=== PATIENT | female | born 1965 | race Caucasian/White ===

== ENCOUNTER 2016-08-05 13:33 | Emergency (ER) | payer BC ==
[~2016-08-05] VITALS: Ht 152.4 cm; Wt 49.0 kg
[~2016-08-05 13:33] MED LIST: ALBU8.5HRX IH; AMOX500C2; AMOX500T2 PO; AZTH250C PO; BENZ100C18 PO; CALC-6 PO; CEFD300C3 PO; CHLO1CAP PO; CIPR500T4 PO; CIPR500T78 PO; CLIN300C11 PO; CODE-54; CYCL10TA9; CYCL10TA9 PO; DICY20TA33 PO; DOXE10CA PO; ESTR1TAB35 PO; ESTR1TAB37 PO; ESTRACE; ESTRGN METHTEST PO; ETHI1TAB16 PO; FERR-84 PO; FLUC200T45 PO; GABA-488 PO; GABA100C; GABA600T2 PO; HYDR-1231 PO; HYDR-34 PO; HYDR-3812; HYDR-3820 PO; HYDR1TAB85 PO; HYDR1TAB86 PO; METO10TA3 PO; METO5TAB2 PO; NAPR500T PO; NF-ESOM40C PO; NITR100C3 PO; NORE1TAB95 PO; NORG1TAB30 PO; NORG1TAB6 PO; OMEP-10 PO; ONDA-43 PO; ONDA4TAB8 PO; OXYC-202 PO; PANT20TA PO; PANT20TA2; PANT20TA2 PO; PANT40TA3 PO; PANT40VI3 PO; PHEN100T26 PO; PNT40TEC PO; PRD20T PO; PRM25T PO; PROM25SU10 PR; RNT150T PO; SCR1T1; SCR1T1 PO; SIME125T50 PO; SUCR1TAB23 PO; SUCR1TAB36 PO; SULF1TAB38 PO; ULCER MED; [UNRECOGNIZED DRUG - OTHER]
--- OUTSIDE RECORDS SUMMARY | 2016-08-05 13:39 | XMS REPORT | Continuity of Care Document ---
Author Author [facility] Organization [facility] Address Unknown Phone Unavailable Care Team Providers Care Furs Salesperson Name Role Phone Enmanuel Nicolas PCP [phone] Source Comments Some departments are not documenting in the electronic medical record. If you do not see the information that you expected, contact Release of Information in the Health Information Management department at [phone] for further assistance in locating additional records.[facility] Active Allergies and Adverse Reactions Not on File Current Medications Not on file Active Problems Not on file Social History Tobacco Use Types Packs/Day Years Used Date Never Assessed Plan of Care Health Maintenance Due Date Last Done Comments Physical (Comprehensive) 12/14/1974 Exam Pertussis Vaccine 12/14/1978 Tetanus Vaccine 12/14/1984 Cervical Cancer Screening 12/14/1988 Breast Cancer Screening 2007 Influenza Vaccine 03/07/2016 Results from Last 3 Months Not on file
[2016-08-05] MEDS ORDERED: Vitamin B 12 (14:16)
--- NOTE | 2016-08-05 14:21 | ED Respiratory ---
General Chief Complaint: Cough/Cold/Flu Symptoms Stated Complaint: FEVER COUGH/CHEST CONGESTION EARACHE ABD PAIN Nursing Triage Note: COUGH AND CONGESTION SINCE 1 WEEK AGO, REPORTS SHE HAS HAD A SURGERY MAR 29 AND MAY 24 AND THE INCISION HURTS FROM COUGHING. Source: patient, RN notes reviewed Exam Limitations: no limitations History of Present Illness Time seen by provider: 14:20 Initial Comments As directed. Timing/Duration: week (1) Severity: moderate Prior Episodes/Possible Cause: no prior episodes Modifying Factors: Worse With Coughing Associated Symptoms: cough earache facial pain fever/chills headache nasal congestion nasal drainage Allergies and Home Medications Allergies Coded Allergies: morphine (Verified Allergy, Severe, ITCHING & FLUSHING, PT HAS RECEIVED HYDROCODONE IN THE PAST, 06/23/16) Influenza Virus Vaccines (Unverified Allergy, Unknown, 06/23/16) metronidazole (Verified Allergy, Unknown, 04/28/16) Sulfa (Sulfonamide Antibiotics) (Verified Adverse Reaction, Unknown, ) Home Medications (Reported) Albuterol Sulfate 8.5 Gm Hfa.aer.ad #1 1-2 PUFF IH Q4H PRN PRN cough/wheeze/SOA Prescribed by: SONNY KRISHNAN on 08/05/16 1529 Calcium Carbonate/Vitamin D3 1 Each Tablet 1 TAB PO BID (Reported) Dicyclomine HCl 20 Mg Tablet #120 20 MG PO QID Prescribed by: SANGITA ZAMORA on 06/23/16 1057 Estrogen,Sylvie/Me-Testosterone 1 Each Tablet 2 TAB PO DAILY (Reported) LAST FILLED 03/20/16 #60 Ferrous Sulfate 325 Mg Tablet 325 MG PO BID (Reported) Gabapentin 300 Mg Capsule 600 MG PO TID (Reported) TAKES 2 (300 MG) CAPSULES Hydrocodone/Chlorphen P-Stirex 480 Ml Nyasia.er.12h #120 5 ML PO Q12H PRN PRN cough /congestion Prescribed by: SONNY KRISHNAN on 08/05/16 1529 Norgestimate-Ethinyl Estradiol 1 Each Tablet 1 TAB PO DAILY (Reported) TK 1 T PO D CONTINUOUSLY OF ACTIVE PILLS ONLY OR UTD / LAST FILLED 01/19/16 # 84 Pantoprazole Sodium 40 Mg Tablet.dr 40 MG PO BID (Reported) Constitutional: see HPI fever EENTM: ear pain nose congestion see HPI Respiratory: see HPI cough phlegm short of breath : No Psychiatric/Neurological: See HPI Headache All Other Systems Reviewed Negative Unless Noted: Yes (Negative excepted noted.) Past Qmpsbvp-Vmopkx-Iibhuo Hx Patient Social History Alcohol Use: Denies Use Recreational Drug Use: No Smoking Status: Former Smoker Recent Foreign Travel: No Contact w/Someone Who Travel: No Recent Infectious Disease Expo: No Recent Hopitalizations: Yes (GI BLEED) Immunizations Up To Date Tetanus Booster (TDap): More than 5yrs Seasonal Allergies Seasonal Allergies: Yes Surgeries HX Surgeries: Yes (partial gastrectomy) Surgeries: Abdominal, Hysterectomy Respiratory Hx Respiratory Disorders: No Cardiovascular Hx Cardiac Disorders: No Neurological Hx Neurological Disorders: No Reproductive System : No Hx 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: No Sexually Transmitted Disease: No HIV/AIDS: No 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, Ovarian Cyst DIGESTER History: Hysterectomy Genitourinary Hx Genitourinary Disorders: No Gastrointestinal Hx Gastrointestinal Disorders: Yes Gastrointestinal Disorders: Gastrointestinal Bleed, Obstructive Bowel, Ulcer Musculoskeletal Hx Musculoskeletal Disorders: Yes Musculoskeletal Disorders: Scoliosis Endocrine Hx Endocrine Disorders: Yes (hypoglycemia) HEENT HX ENT Disorders: No Loss of Vision: Denies Hearing Impairment: Denies Cancer Hx Cancer: No Psychosocial Hx Psychiatric Problems: No Integumentary HX Skin/Integumentary Disorder: No Blood Transfusions Hx Blood Disorders: Yes (anemia) Adverse Reaction to a Blood Tr: No Family Medical History Significant Family History: No Pertinent Family Hx Family Medial History: Cancer of colon GRANDMOTHER Family history: Diabetes mellitus 19 FATHER Family history: Hypertension 19 MOTHER Stroke 19 MOTHER Physical Exam Vital Signs Vital Sign - Last 12Hours 08/05/16 14:00 Temp 99.2 Pulse 90 Resp 20 B/P 102/69 Pulse Ox 99 O2 Delivery Room Air Capillary Refill : Less Than 3 Seconds General Appearance: WD/WN no apparent distress HEENT: normal ENT inspection TMs normal pharynx normal Neck: normal inspection Respiratory: lungs clear no respiratory distress Cardiovascular: regular rate, rhythm Neurologic/Psychiatric: no motor/sensory deficits alert oriented x 3 depressed affect Skin: warm/dry Progress/Results/Core Measures Results/Orders Lab Results Laboratory Tests Test 08/05/16 14:25 Range/Units Basophils # (Auto) 0.0 0.0-0.1 10^3/uL Basophils (%) (Auto) 0 0-10 % Eosinophils # (Auto) 0.0 0.0-0.3 10^3/uL Eosinophils (%) (Auto) 0 0-10 % Hematocrit 40 35-52 % Hemoglobin 12.9 11.5-16.0 G/DL Lymphocytes # (Auto) 1.4 1.0-4.0 X 10^3 Lymphocytes (%) (Auto) 32 12-44 % Mean Corpuscular Hemoglobin 29 25-34 PG Mean Corpuscular Hemoglobin Concent 32 32-36 G/DL Mean Corpuscular Volume 89 80-99 FL Mean Platelet Volume 9.9 7.4-10.4 FL Monocytes # (Auto) 0.2 0.0-1.0 X 10^3 Monocytes (%) (Auto) 5 0-12 % Neutrophils # (Auto) 2.7 1.8-7.8 X 10^3 Neutrophils (%) (Auto) 63 42-75 % Platelet Count 313 130-400 10^3/uL Red Blood Count 4.53 4.35-5.85 10^6/uL Red Cell Distribution Width 19.9 H 10.0-14.5 % White Blood Count 4.4 4.3-11.0 10^3/uL My Orders Orders-SONNY KRISHNAN DO Cbc With Automated Diff (08/05/16 14:21) Chest Pa/Lat (2 View) (08/05/16 14:21) Dexamethasone Tablet (Decadron Tablet) (08/05/16 15:00) Albuterol/Ipra Inhalation Soln (Duoneb I (08/05/16 15:00) Svn Sm Volume Nebulizer Rt-Rfs (08/05/16 14:53) Dexamethasone Injection (Decadron Inject (08/05/16 15:15) Dexamethasone Pf Injection (Decadron Pf (08/05/16 15:14) Dexamethasone Pf Injection (Decadron Pf (08/05/16 15:30) Medications Given in ED Vital Signs/I&O Vital Sign - Last 12Hours 08/05/16 08/05/16 08/05/16 08/05/16 14:00 14:00 15:19 15:24 Temp 99.2 99.2 Pulse 90 Resp 20 B/P 102/69 Pulse Ox 99 O2 Delivery Room Air Room Air Room Air 08/05/16 15:35 Temp 99.2 Pulse 88 Resp 20 Pulse Ox 95 Blood Pressure Mean: 80 Diagnostic Imaging Diagonstic Imaging: Xray Plain Films/CT/US/NM/MRI: chest (normal) Departure Impression Impression: Primary Impression: Asthmatic bronchitis Disposition: 01 HOME, SELF-CARE Condition: Stable Departure-Patient Inst. Decision time for Depature: 15:24 Referrals: MARJ MATTHEW MD Patient Instructions: Acute Bronchitis, Adult (DC) Scripts Albuterol Sulfate (Proair Hfa)8.5 Gm Hfa.aer.ad1-2 Puff IH Q4H PRN cough/wheeze/ SOA #1 INH Ref 0 Prov:SONNY KRISHNAN DO 08/05/16 Hydrocodone/Chlorphen P-Stirex (Tussionex Pennkinetic Susp)480 Ml Nyasia.er.12h5 Ml PO Q12H PRN cough/congestion #120 ML Ref 0 Prov:SONNY KRISHNAN DO 08/05/16 SONNY KRISHNAN DO Aug 05, 2016 14:21
[2016-08-05 14:42] LABS: BASOPHILS % (AUTO) 0 % (0-10); EOSINOPHILS % (AUTO) 0 % (0-10); LYMPHOCYTES # (AUTO) 1.4 X 10^3 (1.0-4.0); LYMPHOCYTES % (AUTO) 32 % (12-44); MEAN CORPUSCULAR HEMOGLOBIN 29 PG (25-34); MEAN CORPUSCULAR HGB CONC 32 G/DL (32-36); MEAN CORPUSCULAR VOLUME 89 FL (80-99); MEAN PLATELET VOLUME 9.9 FL (7.4-10.4); MONOCYTES # (AUTO) 0.2 X 10^3 (0.0-1.0); MONOCYTES % (AUTO) 5 % (0-12); NEUTROPHILS # (AUTO) 2.7 X 10^3 (1.8-7.8); NEUTROPHILS % (AUTO) 63 % (42-75); PLATELET COUNT 313 10^3/uL (130-400); RED BLOOD COUNT 4.53 10^6/uL (4.35-5.85); RED CELL DISTRIBUTION WIDTH 19.9 % (10.0-14.5); WHITE BLOOD COUNT 4.4 10^3/uL (4.3-11.0)
--- NOTE | 2016-08-05 14:45 | Diagnostic Imaging Report ---
INDICATION: Chest pain. PA and lateral chest. Heart size and pulmonary vascularity are normal. Lungs are clear. There are no effusions or pneumothoraces. IMPRESSION: Negative chest. Dictated by: Dictated on workstation # [id number]
[2016-08-05] MEDS ORDERED: RT-ALBUTEROL/IPRATROPIUM 3 ML (DUONEB) VIAL INH ONE (15:00)
[2016-08-05] MEDS ORDERED: DEXAMETHASONE 4 MG TAB (DECADRON) PO SCH (15:00)
[2016-08-05] MEDS ORDERED: DEXAMETHASONE PF 10 MG/ML (DECADRON) VIAL ONE (15:14)
[2016-08-05] MEDS: DEXAMETHASONE 4 MG/ML SDV (DECADRON) IV ONE ×2 (15:18→15:20)
[2016-08-05] MEDS ORDERED: RT-ALBUINH IH (15:29)
[2016-08-05] MEDS ORDERED: HYDR115S2 PO (15:29)
[2016-08-05] MEDS ORDERED: DEXAMETHASONE PF 10 MG/ML (DECADRON) VIAL IM ONE (15:30)
[2016-08-05 15:35] VITALS: BP 114/68
== END 2016-08-05 15:35 | disposition home or self-care (01) ==
LOC: EDUNIT# 13:33 → ER 13:36
DX: J45.901 Unspecified asthma with (acute) exacerbation (principal); R50.9 Fever, unspecified; Z98.890 Other specified postprocedural states
CPT/HCPCS: 36415; 71020; 85025; 94640; 96372; 99282

== ENCOUNTER 2017-07-14 15:21 | Emergency (ER) | payer SELFPAY ==
[~2017-07-14] VITALS: Ht 152.4 cm; Wt 50.8 kg
[~2017-07-14 15:21] MED LIST changes: +ACHD5005; -HYDR-3812; +HYDR115S2 PO; +NAPR-1071 PO; -NAPR500T PO; +RT-ALBUINH IH; +Vitamin B 12
--- OUTSIDE RECORDS SUMMARY | 2017-07-14 15:38 | XMS REPORT ---
Author Author SONNY PARRISH Organization [employer] Address Unknown Phone Unavailable Care Team Providers Care Screen Machine Operator Name Role Phone SONNY PARRISH CP Unavailable Allergies No Known Allergies Problems Problem Type Condition Code Onset Dates Condition Status Problem Cough 786.2 Active Problem Fever, unspecified 780.60 Active Problem Encounter for dental examination Z01.20 Active Problem Abdominal pain, generalized 789.07 Active Problem Acute sinusitis, unspecified 461.9 Active Problem Esophageal reflux 530.81 Active Problem Unspecified menopausal and postmenopausal disorder 627.9 Active Medications Medication Code System Code Instructions Start Date End Date Status Dosage Gabapentin [facility] [address]-23 600 MG Orally 3 times a day 1 tablet Results No Known Results Summary Purpose [employer] Submission
--- OUTSIDE RECORDS SUMMARY | 2017-07-14 15:38 | XMS REPORT ---
Author Author SONNY PARRISH Organization [employer] Address Unknown Phone Unavailable Care Team Providers Care Inspectors And Regulatory Officers Name Role Phone SONNY PARRISH CP Unavailable [...] Instructions Start Date End Date Status Dosage Tramadol HCl [facility] [address]-80 50 mg Orally 2 times a day as needed 2 tablets Results No Known Results Summary Purpose [employer] Submission
--- OUTSIDE RECORDS SUMMARY | 2017-07-14 15:38 | XMS REPORT ---
Author Author SONNY PARRISH Organization [employer] Address Unknown Phone Unavailable Care Team Providers Care Home Care Physical Therapist Name Role Phone SONNY PARRISH CP Unavailable [...] Date End Date Status Dosage Tramadol HCl [facility] [address]-64 50 mg Orally 2 times a day October 20, 2015 2 tablets Results No Known Results Summary Purpose [employer] Submission
--- OUTSIDE RECORDS SUMMARY | 2017-07-14 15:38 | XMS REPORT ---
Author Author NURIS MENDEZ Organization [employer] Address Unknown Phone Unavailable Care Team Providers Care Penology Professor Name Role Phone NURIS MENDEZ CP Unavailable Allergies, Adverse Reactions, Alerts Substance Reaction Event Type Sulfamethoxazole-Trimethoprim Info Not Available Drug Allergy Sudafed Info Not Available Drug Allergy Flagyl skin burning Drug Allergy Morphine Info Not Available Drug Allergy Problems Problem Type Condition Code Onset Dates Condition Status Assessment Encounter for dental examination Z01.20 Active Problem Cough 786.2 Active Problem Fever, unspecified 780.60 Active Problem Encounter for dental examination Z01.20 Active Problem Abdominal pain, generalized 789.07 Active Problem Acute sinusitis, unspecified 461.9 Active Problem Esophageal reflux 530.81 Active Problem Unspecified menopausal and postmenopausal disorder 627.9 Active Medications No Known Medications Procedures Procedure Coding System Code Date INTRAORL-PERIAPICAL 1 FILM 88783 CPT-4 D0220 May 03, 2015 INTRAORL-PERIAPICAL 1 FILM 27855 CPT-4 D0220 May 03, 2015 COMP ORAL EVALUATION - NEW/EST PT CPT-4 D0150 May 03, 2015 TOPICAL FLUORIDE VARNISH CPT-4 D1206 May 03, 2015 PROPHYLAXIS - ADULT CPT-4 D1110 May 03, 2015 INTRAORL-PERIAPICAL EA ADD FILM CPT-4 D0230 May 03, 2015 INTRAORL-PERIAPICAL EA ADD FILM CPT-4 D0230 May 03, 2015 PANORAMIC FILM SEE ALSO CODE 69294 CPT-4 D0330 May 03, 2015 BITEWINGS - TWO FILMS CPT-4 D0272 May 03, 2015 Vital Signs Date/Time: May 03, 2015 Blood Pressure Diastolic 63 mmHg Blood Pressure Systolic 101 mmHg Height 60 in Results No Known Results Summary Purpose [employer] Submission
--- OUTSIDE RECORDS SUMMARY | 2017-07-14 15:38 | XMS REPORT | Clinical Summary ---
Author Author [facility] Organization [facility] Address Unknown Phone Unavailable Care Team Providers Care Printing Machinist Name Role Phone PCP Unavailable Source Comments Some departments are not documenting in the electronic medical record. If you do not see the information that you expected, contact Release of Information in the Health Information Management department at [phone] for further assistance in locating additional records.[facility] Allergies Not on File Current Medications Not on file Active Problems Not on file Social History Tobacco Use Types Packs/Day Years Used Date Never Assessed Sex Assigned at Date Recorded Not on file Last Filed Vital Signs Not on file Plan of Treatment Health Maintenance Due Date Last Done Comments PHYSICAL (COMPREHENSIVE) 12/14/1974 EXAM PERTUSSIS VACCINE 12/14/1978 TETANUS VACCINE 12/14/1984 CERVICAL CANCER SCREENING 12/14/1997 BREAST CANCER SCREENING 2007 INFLUENZA VACCINE 02/04/2017 Results Not on filefrom Last 3 Months
--- OUTSIDE RECORDS SUMMARY | 2017-07-14 15:38 | XMS REPORT ---
Author BIANCA Villegas [facility] [employer] Address Unknown Phone Unavailable Care Team Providers Care Stock Replenisher Name Role Phone BIANCA KAY CP Unavailable Allergies, Adverse Reactions, Alerts Substance Reaction Event Type Wellbutrin nightmares/irritable Drug Allergy Sulfamethoxazole-Trimethoprim Body aches, tunnel vision Drug Allergy Sudafed dizziness Drug Allergy Flagyl skin burning Drug Allergy Morphine itching Drug Allergy Problems Problem Type Condition Code Onset Dates Condition Status Assessment Seasonal allergic rhinitis, unspecified allergic rhinitis trigger J30.2 Active Problem Cough 786.2 Active Problem Fever, unspecified 780.60 Active Problem Encounter for dental examination Z01.20 Active Problem Abdominal pain, generalized 789.07 Active Problem Acute sinusitis, unspecified 461.9 Active Problem Esophageal reflux 530.81 Active Problem Unspecified menopausal and postmenopausal disorder 627.9 Active Medications Medication Code System Code Instructions Start Date End Date Status Dosage Estratest NDC 0 ... by oral route Once a day 2 tablets Tramadol HCl [facility] [address]-11 50 mg Orally 3 times a day October 20, 2015 1 tablet as needed Gabapentin [facility] [address]-09 600 MG Orally 3 times a day 1 tablet Ortho-Cyclen (28) [facility] [address]-05 0.25-35 MG-MCG Orally Once a day 1 tablet Reglan [facility] [address]-07 10 mg October 03, 2014 1 tablet by Oral route 4 times per day Protonix [facility] [address]-67 40 MG Orally 3 times a day September 06, 2014 1 Tablet Cyclobenzaprine HCl [facility] 92611274423 10 MG Orally Three times a day 1 tablet Librax [facility] [address]-46 5-2.5 MG Orally Twice a day 1 capsule before meals Procedures Procedure Coding System Code Date Office Visit, Est Pt., Level 3 CPT-4 37714 Feb 07, 2016 Vital Signs Date/Time: Feb 07, 2016 Cardiac Monitoring Heart Rate 104 bpm Weight 106.7 lbs Height 60 in BMI 20.84 Index Blood Pressure Diastolic 66 mmHg Blood Pressure Systolic 90 mmHg Results No Known Results Summary Purpose [employer] Submission
--- OUTSIDE RECORDS SUMMARY | 2017-07-14 15:38 | XMS REPORT ---
Author Author TAMMY SIMS Organization [employer] Address Unknown Phone Unavailable Care Team Providers Care Aircraft Electrician Name Role Phone TAMMY SIMS CP Unavailable Allergies, Adverse Reactions, Alerts Substance Reaction Event Type Sulfamethoxazole-Trimethoprim Info Not Available Drug Allergy Sudafed Info Not Available Drug Allergy Flagyl skin burning Drug Allergy Morphine Info Not Available Drug Allergy Problems Problem Type Condition Code Onset Dates Condition Status Problem Fever, unspecified 780.60 Active Problem Esophageal reflux 530.81 Active Problem Cough 786.2 Active Problem Acute sinusitis, unspecified 461.9 Active Assessment Dental examination Z01.20 Active Problem Unspecified menopausal and postmenopausal disorder 627.9 Active Problem Abdominal pain, generalized 789.07 Active Medications Medication Code System Code Instructions Start Date End Date Status Dosage Librax [facility] [address]-92 5-2.5 MG Orally Twice a day 1 capsule before meals Ortho-Cyclen (28) [facility] [address]-59 0.25-35 MG-MCG Orally Once a day 1 tablet Protonix [facility] [address]-30 40 MG Orally 3 times a day September 06, 2014 1 Tablet Gabapentin [facility] [address]-59 600 MG TAKE ONE TABLET BY MOUTH THREE TIMES DAILY Procedures Procedure Coding System Code Date AMALGAM-TWO SURFACES PRIMARY/PERM CPT-4 D2150 May 02, 2015 PULP CAP - INDIRECT CPT-4 D3120 May 02, 2015 LTD ORAL EVALUATION - PROBLEM FOCUS CPT-4 D0140 May 02, 2015 BITEWINGS - TWO FILMS CPT-4 D0272 May 02, 2015 INTRAORL-PERIAPICAL 1 FILM 33439 CPT-4 D0220 May 02, 2015 Vital Signs Date/Time: May 02, 2015 Blood Pressure Diastolic 59 mmHg Blood Pressure Systolic 94 mmHg Height 60 in Results No Known Results Summary Purpose [employer] Submission
--- OUTSIDE RECORDS SUMMARY | 2017-07-14 15:39 | XMS REPORT ---
Author JACE Cohen [facility] [employer] Address Unknown Phone Unavailable Care Team Providers Care Museum Educator Name Role Phone JACE ROBERTS CP Unavailable Allergies, Adverse Reactions, Alerts Substance Reaction Event Type Sulfamethoxazole-Trimethoprim Info Not Available Drug Allergy Sudafed Info Not Available Drug Allergy Flagyl skin burning Drug Allergy Morphine Info Not Available Drug Allergy Problems Problem Type Condition ICD-9 Code Onset Dates Condition Status Problem Fever, unspecified 780.60 Active Problem Esophageal reflux 530.81 Active Problem Cough 786.2 Active Problem Acute sinusitis, unspecified 461.9 Active Assessment Acute sinusitis, unspecified 461.9 Active Problem Unspecified menopausal and postmenopausal disorder 627.9 Active Problem Abdominal pain, generalized 789.07 Active Medications Medication Code System Code Instructions Start Date End Date Status Dosage Ortho-Cyclen (28) [facility] [address]-79 0.25-35 MG-MCG Orally Once a day 1 tablet Albuterol Sulfate [facility] [address]-61 90 mcg/actuation Inhalation 4 times a day Mar 09, 2014 2 puffs by Inhalation route every 4-6 hours as needed PRN cough or wheezing Protonix [facility] [address]-66 40 MG Orally 3 times a day September 06, 2014 1 Tablet Gabapentin [facility] [address]-13 600 MG Orally Three times a day October 12, 2013 1 tablet Ranitidine HCl [facility] [address]-54 300 MG as needed October 12, 2013 take 1 tablet (300 mg) by oral route 2 times per day Librax [facility] [address]-15 5-2.5 MG Orally Twice a day 1 capsule before meals Augmentin [facility] [address]-02 875-125 MG Orally every 12 hrs Mar 10, 2015 Mar 20, 2015 1 tablet Reglan [facility] [address]-57 10 MG October 03, 2014 1 tablet by Oral route 4 times per day Procedures Procedure Coding System Code Date Office Visit, Est Pt., Level 3 CPT-4 86487 Mar 10, 2015 Vital Signs Date/Time: Mar 10, 2015 Temperature 98.7 F Weight 109.9 lbs Height 60 in BMI 21.46 Index Blood Pressure Diastolic 60 mmHg Blood Pressure Systolic 98 mmHg Cardiac Monitoring Heart Rate 68 bpm Results No Known Results Summary Purpose [employer] Submission
--- OUTSIDE RECORDS SUMMARY | 2017-07-14 15:39 | XMS REPORT ---
Author Author SONNY PARRISH Organization [employer] Address Unknown Phone Unavailable Care Team Providers Care Tractor Expert Name Role Phone SONNY PARRISH CP Unavailable [...] Instructions Start Date End Date Status Dosage Reglan [facility] [address]-40 10 mg Orally 1 tablet by Oral route 4 times per day Cyclobenzaprine HCl [facility] 02714566238 10 MG Orally Three times a day 1 tablet Results No Known Results Summary Purpose [employer] Submission
--- OUTSIDE RECORDS SUMMARY | 2017-07-14 15:39 | XMS REPORT ---
Author Author TAMMY SIMS [facility] [employer] Address Unknown Phone Unavailable Care Team Providers Care Still Operator Brandy Name Role Phone TAMMY SIMS Unavailable Allergies, Adverse Reactions, Alerts Substance Reaction [...] Instructions Start Date End Date Status Dosage Albuterol Sulfate [facility] [address]-60 90 mcg/actuation Inhalation 4 times a day Mar 09, 2014 2 puffs by Inhalation route every 4-6 hours as needed PRN cough or wheezing Librax [facility] [address]-15 5-2.5 MG Orally Twice a day 1 capsule before meals [place] [facility] [address]-55 5-325 MG Orally every 6 hrs Apr 10, 2015 Apr 14, 2015 1 tablet as needed Gabapentin [facility] [address]-26 600 MG TAKE ONE TABLET BY MOUTH THREE TIMES DAILY Protonix [facility] [address]-89 40 MG Orally 3 times a day September 06, 2014 1 Tablet Ranitidine HCl [facility] [address]-23 300 MG as needed October 12, 2013 take 1 tablet (300 mg) by oral route 2 times per day Ortho-Cyclen (28) [facility] [address]-36 0.25-35 MG-MCG Orally Once a day 1 tablet Procedures Procedure Coding System Code Date INTRAORL-PERIAPICAL 1 FILM 95155 CPT-4 D0220 Apr 10, 2015 INTRAORL-PERIAPICAL EA ADD FILM CPT-4 D0230 Apr 10, 2015 LTD ORAL EVALUATION - PROBLEM FOCUS CPT-4 D0140 Apr 10, 2015 EXTRAC ERUPTED TOOTH/EXPOSED ROOT CPT-4 D7140 Apr 10, 2015 BITEWING - SINGLE FILM CPT-4 D0270 Apr 10, 2015 EXTRAC ERUPTED TOOTH/EXPOSED ROOT CPT-4 D7140 Apr 10, 2015 Vital Signs Date/Time: Apr 10, 2015 Blood Pressure Diastolic 69 mmHg Blood Pressure Systolic 107 mmHg Results No Known Results Summary Purpose [employer] Submission
--- OUTSIDE RECORDS SUMMARY | 2017-07-14 15:39 | XMS REPORT ---
Author Author SONNY PARRISH Organization [facility] Address [address] [place] [address] Care Team Providers Care Munitions Handler Name Role Phone SONNY PARRISH Unavailable PROBLEMS Type Condition ICD9-CM Code DWO68-BL Code Onset Dates Condition Status SNOMED Code Problem Anxiety F41.9 Active 77769535 Problem Encounter for dental examination Z01.20 Active 716043415 ALLERGIES Substance Reaction Event Type Date Status Wellbutrin nightmares/irritable Drug Allergy Jul, Active Sulfamethoxazole-Trimethoprim Body aches, tunnel vision Drug Allergy Jul Active Sudafed dizziness Drug Allergy Jul, Active Flagyl skin burning Drug Allergy Jul, Active Morphine itching Drug Allergy Jul, Active SOCIAL HISTORY No smoking Hx information available PLAN OF CARE VITAL SIGNS Height 60 in 2016-07-22 Weight 102.4 lbs 2016-07-22 Temperature 98.6 degrees Fahrenheit 2016-07-22 Heart Rate 132 bpm 2016-07-22 Respiratory Rate 22 2016-07-22 BMI 20.00 kg/m2 2016-07-22 Blood pressure systolic 104 mmHg 2016-07-22 Blood pressure diastolic 83 mmHg 2016-07-22 MEDICATIONS Medication Instructions Dosage Frequency Start Date End Date Duration Status Iron 325 (65 Fe) MG Orally twice a day 1 tablet 12h Active Librax 5-2.5 MG Orally Twice a day 1 capsule before meals 12h Active Ortho-Cyclen (28) 0.25-35 MG-MCG Orally Once a day 1 tablet 24h 30 days Active Vitamin B-12 500 MCG Orally Once a day 2 tablets 24h Active Estratest ... by oral route Once a day 2 tablets 24h Active Gabapentin 600 MG Orally 3 times a day 1 tablet 8h 30 Active Protonix 40 MG Orally 3 times a day 1 Tablet 8h Sep, 30 Active Cyclobenzaprine HCl 10 MG TAKE ONE TABLET BY MOUTH THREE TIMES DAILY 30 Active Ativan 1 MG Orally Once a day 1 tablet at bedtime as needed 24h Jul, Active Zofran ODT 8 MG Orally 3 times a day 1 tablet 8h 17 Dec, 2015 Active RESULTS No Results PROCEDURES Procedure Date Ordered Related Diagnosis Body Site Office Visit, Est Pt., Level 3 Jul 22, 2016 IMMUNIZATIONS No Known Immunizations
--- OUTSIDE RECORDS SUMMARY | 2017-07-14 15:39 | XMS REPORT ---
Author Author TAMMY SIMS [facility] eClinicalWorks Address Unknown Phone Unavailable Care Team Providers Care Gear Straightener Name Role Phone TAMMY SIMS Unavailable Allergies, Adverse Reactions, Alerts Substance Reaction Event Type Sulfamethoxazole-Trimethoprim Body aches, tunnel vision Drug Allergy Sudafed dizziness Drug Allergy Flagyl skin burning Drug Allergy Morphine itching Drug Allergy Problems Problem Type Condition Code Onset Dates Condition Status Assessment Dental examination Z01.20 Active Assessment Dental caries K02.9 Active Problem Cough 786.2 Active Problem Fever, unspecified 780.60 Active Problem Encounter for dental examination Z01.20 Active Problem Abdominal pain, generalized 789.07 Active Problem Acute sinusitis, unspecified 461.9 Active Problem Esophageal reflux 530.81 Active Problem Unspecified menopausal and postmenopausal disorder 627.9 Active Medications Medication Code System Code Instructions Start Date End Date Status Dosage Albuterol Sulfate [facility] [address]-79 90 mcg/actuation Inhalation 4 times a day Mar 09, 2014 2 puffs by Inhalation route every 4-6 hours as needed PRN cough or wheezing Reglan [facility] [address]-97 10 mg October 03, 2014 1 tablet by Oral route 4 times per day Gabapentin [facility] [address]-47 600 MG Orally 3 times a day 1 tablet Librax [facility] [address]-95 5-2.5 MG Orally Twice a day 1 capsule before meals Ortho-Cyclen (28) [facility] [address]-76 0.25-35 MG-MCG Orally Once a day 1 tablet Tramadol HCl [facility] [address]-09 50 mg Orally 3 times a day October 20, 2015 1 tablet as needed Protonix [facility] [address]-02 40 MG Orally 3 times a day September 06, 2014 1 Tablet Wellbutrin SR [facility] [address]-25 150 MG Orally Twice a day October 20, 2015 1 tablet Estratest ND 0 ... by oral route Once a day 2 tablets Procedures Procedure Coding System Code Date EXTRAC ERUPTED TOOTH/EXPOSED ROOT CPT-4 D7140 December 11, 2015 Billing Notes on claim CPT-4 EC109 December 11, 2015 LTD ORAL EVALUATION - PROBLEM FOCUS CPT-4 D0140 December 11, 2015 Vital Signs Date/Time: December 11, 2015 Blood Pressure Diastolic 69 mmHg Blood Pressure Systolic 107 mmHg Height 60 in Results No Known Results Summary Purpose eClinicalWorks Submission
--- OUTSIDE RECORDS SUMMARY | 2017-07-14 15:39 | XMS REPORT ---
Author Author MARIANNA MYERS Organization [facility] Address [address] [place] [address] Care Team Providers Care Taxi Driver Name Role Phone MARIANNA MYERS Unavailable PROBLEMS Type Condition ICD9-CM Code PFR76-BI Code Onset Dates Condition Status SNOMED Code Problem Anxiety F41.9 Active 93631508 Problem Encounter for dental examination Z01.20 Active 278609797 ALLERGIES Substance Reaction Event Type Date Status Wellbutrin nightmares/irritable Drug Allergy Sep, Active Sulfamethoxazole-Trimethoprim Body aches, tunnel vision Drug Allergy Sep Active Sudafed dizziness Drug Allergy Sep, Active Flagyl skin burning Drug Allergy Sep, Active Morphine itching Drug Allergy Sep, Active SOCIAL HISTORY Never Assessed PLAN OF CARE Activity Details Follow Up prn Reason: VITAL SIGNS Height 60 in 2016-09-12 Weight 108 lbs 2016-09-12 Temperature 98.6 degrees Fahrenheit 2016-09-12 Heart Rate 90 bpm 2016-09-12 Respiratory Rate 20 2016-09-12 BMI 21.09 kg/m2 2016-09-12 Blood pressure systolic 110 mmHg 2016-09-12 Blood pressure diastolic 60 mmHg 2016-09-12 MEDICATIONS Medication Instructions Dosage Frequency Start Date End Date Duration Status Vitamin B-12 500 MCG Orally Once a day 2 tablets 24h Active Librax 5-2.5 MG Orally Twice a day 1 capsule before meals 12h Active Ortho-Cyclen (28) 0.25-35 MG-MCG Orally Once a day 1 tablet 24h 30 days Active Zofran ODT 8 MG Orally 3 times a day 1 tablet 8h Dec, Active Albuterol Sulfate 90 mcg/actuation Inhalation 4 times a day 2 puffs by Inhalation route every 4-6 hours as needed PRN cough or wheezing 6h Mar, 30 days Active Amoxicillin-Pot Clavulanate 875-125 MG Orally every 12 hrs 1 tablet 12h Sep, Sep, 10 day(s) Active Estratest ... by oral route Once a day 2 tablets 24h Active Ativan 1 MG Orally Once a day 1 tablet at bedtime as needed 24h Jul, Active Protonix 40 mg Orally twice a day 1 Tablet 12h Active Fluconazole 200 MG TAKE ONE TABLET BY MOUTH ONCE A WEEK Oct, 63 Active Iron 325 (65 Fe) MG Orally twice a day 1 tablet 12h Active Cyclobenzaprine HCl 10 MG TAKE ONE TABLET BY MOUTH THREE TIMES DAILY 30 Active Gabapentin 600 MG Orally 3 times a day 1 tablet 8h 30 Active RESULTS Name Result Date Reference Range UA LONG DIP (IN HOUSE) 2016-09-12 Lot # [id number] Exp date 08/06/17 Clarity clear Color yellow Odor none GLU negative DAINEL negative KET negative SG 1.020 BLO trace-lysed pH 6.5 Protein negative URO 0.2 NIT positive COLTON trace Lot # Exp date PROCEDURES Procedure Date Ordered Result Body Site URINALYSIS, AUTO, W/O SCOPE September 12, 2016 URINE CULTURE/COLONY COUNT September 12, 2016 IMMUNIZATIONS No Known Immunizations MEDICAL (GENERAL) HISTORY Type Description Date Medical History stomach ulcers in past Medical History Colon spasms Surgical History Obstructed bowel surgery 2011 Surgical History Partial stomach removal due to ulcers. Surgery at [facility] in [place] 10/2014 Surgical History ovarian cyst removal Surgical History Hysterectomy 2005 Surgical History appendectomy Surgical History EGD 02/06/2016 Surgical History Removed part of stomach [facility] 03/2016 Surgical History Infection removal of stomach [facility] 05/24/2016 Hospitalization History past surgeries
--- OUTSIDE RECORDS SUMMARY | 2017-07-14 15:39 | XMS REPORT ---
Author SONNY Boyce Organization e[employer] Address Unknown Phone Unavailable Care Team Providers Care Lime Hide Inspector Name Role Phone SONNY PARRISH CP Unavailable [...] disorder 627.9 Active Medications No Known Medications Results No Known Results Summary Purpose eClinicalWorks Submission
--- OUTSIDE RECORDS SUMMARY | 2017-07-14 15:40 | XMS REPORT ---
Author Author SONNY PARRISH Organization [employer] Address Unknown Phone Unavailable Care Team Providers Care Wearing Apparel Shaker Name Role Phone SONNY PARRISH CP Unavailable [...] Date End Date Status Dosage Tramadol HCl [facility] [address]-25 50 mg Orally 3 times a day October 20, 2015 1 tablet as needed Results No Known Results Summary Purpose eClinicalWorks Submission
--- OUTSIDE RECORDS SUMMARY | 2017-07-14 15:40 | XMS REPORT ---
Author SONNY Boyce [facility] eClinicalWorks Address Unknown Phone Unavailable Care Team Providers Care Coffee Maker Name Role Phone SONNY PARRISH CP Unavailable Allergies, Adverse Reactions, Alerts Substance Reaction Event Type Sulfamethoxazole-Trimethoprim Body aches, tunnel vision Drug Allergy Sudafed dizziness Drug Allergy Flagyl skin burning Drug Allergy Morphine itching Drug Allergy Problems Problem Type Condition Code Onset Dates Condition Status Assessment Chronic gastric ulcer K25.7 Active Assessment Neuropathy G62.9 Active Assessment Migraine G43.909 Active Assessment Tobacco abuse counseling Z71.6 Active Assessment Tobacco abuse Z72.0 Active Problem Cough 786.2 Active Problem Fever, unspecified 780.60 Active Problem Encounter for dental examination Z01.20 Active Problem Abdominal pain, generalized 789.07 Active Problem Acute sinusitis, unspecified 461.9 Active Problem Esophageal reflux 530.81 Active Problem Unspecified menopausal and postmenopausal disorder 627.9 Active Medications Medication Code System Code Instructions Start Date End Date Status Dosage Librax [facility] [address]-26 5-2.5 MG Orally Twice a day 1 capsule before meals Gabapentin [facility] [address]-64 600 MG Orally 3 times a day 1 tablet Estratest ND 0 ... by oral route Once a day 2 tablets Wellbutrin SR [facility] [address]-96 150 MG Orally Twice a day October 20, 2015 1 tablet Ortho-Cyclen (28) [facility] [address]-44 0.25-35 MG-MCG Orally Once a day 1 tablet Protonix [facility] [address]-91 40 MG Orally 3 times a day September 06, 2014 1 Tablet Albuterol Sulfate [facility] [address]-48 90 mcg/actuation Inhalation 4 times a day Mar 09, 2014 2 puffs by Inhalation route every 4-6 hours as needed PRN cough or wheezing Tramadol HCl [facility] [address]-74 50 mg Orally 3 times a day October 20, 2015 1 tablet as needed Reglan [facility] [address]-81 10 MG October 03, 2014 1 tablet by Oral route 4 times per day Procedures Procedure Coding System Code Date Office Visit, Est Pt., Level 3 CPT-4 99703 October 20, 2015 Vital Signs Date/Time: October 20, 2015 Temperature 98.3 F Weight 115.1 lbs Height 60 in BMI 22.48 Index Blood Pressure Diastolic 92 mmHg Blood Pressure Systolic 90 mmHg Cardiac Monitoring Heart Rate 80 bpm Results No Known Results Summary Purpose eClinicalWorks Submission
--- OUTSIDE RECORDS SUMMARY | 2017-07-14 15:41 | XMS REPORT ---
Author SONNY Boyce Organization [employer] Address Unknown Phone Unavailable Care Team Providers Care Land Commissioner Name Role Phone SONNY PARRISH CP Unavailable [...]
--- OUTSIDE RECORDS SUMMARY | 2017-07-14 15:41 | XMS REPORT ---
Author Author SONNY PARRISH Organization [facility] Address [address] [place] [address] Care Team Providers Care Carburetor Rebuilder Name Role Phone SONNY PARRISH Unavailable PROBLEMS Type Condition ICD9-CM Code MBA77-TE Code Onset Dates Condition Status SNOMED Code Problem Anxiety F41.9 Active 00961734 Problem Encounter for dental examination Z01.20 Active 649692544 ALLERGIES Substance Reaction Event Type Date Status Wellbutrin nightmares/irritable Drug Allergy Aug, Active Sulfamethoxazole-Trimethoprim Body aches, tunnel vision Drug Allergy Aug Active Sudafed dizziness Drug Allergy Aug, Active Flagyl skin burning Drug Allergy Aug, Active Morphine itching Drug Allergy Aug, Active SOCIAL HISTORY Never Assessed PLAN OF CARE VITAL SIGNS Height 60 in 2016-08-22 Weight 107.3 lbs 2016-08-22 Temperature 98.1 degrees Fahrenheit 2016-08-22 Heart Rate 72 bpm 2016-08-22 BMI 20.95 kg/m2 2016-08-22 Blood pressure systolic 104 mmHg 2016-08-22 Blood pressure diastolic 70 mmHg 2016-08-22 MEDICATIONS Medication Instructions Dosage Frequency Start Date End Date Duration Status Librax 5-2.5 MG Orally Twice a day 1 capsule before meals 12h Active Protonix 40 MG Orally 3 times a day 1 Tablet 8h 30 Active Vitamin B-12 500 MCG Orally Once a day 2 tablets 24h Active Zofran ODT 8 MG Orally 3 times a day 1 tablet 8h Dec, Active Iron 325 (65 Fe) MG Orally twice a day 1 tablet 12h Active Loratadine 10 mg Orally Once a day 1 tablet 24h Aug, Feb, 30 day(s) Active PredniSONE 20 mg Orally Once a day 2 tablets 24h Aug, Aug, 05 days Active Estratest ... by oral route Once a day 2 tablets 24h Active Fluconazole 200 MG TAKE ONE TABLET BY MOUTH ONCE A WEEK Oct, 63 Active Albuterol Sulfate 90 mcg/actuation Inhalation 4 times a day 2 puffs by Inhalation route every 4-6 hours as needed PRN cough or wheezing 6h 03 Mar, 2014 30 days Active Ortho-Cyclen (28) 0.25-35 MG-MCG Orally Once a day 1 tablet 24h 30 days Active Ativan 1 MG Orally Once a day 1 tablet at bedtime as needed 24h 16 Jul, 2016 Active Cyclobenzaprine HCl 10 MG TAKE ONE TABLET BY MOUTH THREE TIMES DAILY 30 Active Gabapentin 600 MG Orally 3 times a day 1 tablet 8h 30 Active RESULTS No Results PROCEDURES No Known procedures IMMUNIZATIONS No Known Immunizations MEDICAL (GENERAL) HISTORY Type Description Date Medical History stomach ulcers in past Medical History Colon spasms Surgical History Obstructed bowel surgery 2011 Surgical History Partial stomach removal due to ulcers. Surgery at [facility] in [place] 10/2014 Surgical History ovarian cyst removal Surgical History Hysterectomy 2005 Surgical History appendectomy Surgical History EGD 02/06/2016 Surgical History Removed part of stomach [facility] 03/2016 Surgical History Infection removal of stomach [facility] 05/24/2016 Hospitalization History past surgeries
--- OUTSIDE RECORDS SUMMARY | 2017-07-14 15:41 | XMS REPORT ---
Author Author SONNY PARRISH Organization [employer]ClinicalWorks Address Unknown Phone Unavailable Care Team Providers Care Chief Architect Name Role Phone SONNY PARRISH CP Unavailable [...] HCl [facility] [address]-09 50 mg Orally 2 times a day October 20, 2015 2 tablets Results No Known Results Summary Purpose eClinicalWorks Submission
--- OUTSIDE RECORDS SUMMARY | 2017-07-14 15:42 | XMS REPORT ---
Author Author SONNY PARRISH [facility] Address [address] [place] [address] Care Team Providers Care In Flight Refueling System Repairer Name Role Phone SONNY PARRISH Unavailable PROBLEMS Type Condition ICD9-CM Code SNL15-HV Code Onset Dates Condition Status SNOMED Code Problem Acute sinusitis, unspecified 461.9 Active 88851680 Problem Encounter for dental examination Z01.20 Active 749407344 Problem Cough 786.2 Active 99336537 Problem Unspecified menopausal and postmenopausal disorder 627.9 Active 013991681 Problem Abdominal pain, generalized 789.07 Active 548372634 Problem Fever, unspecified 780.60 Active 906502808 Problem Esophageal reflux 530.81 Active 273838794 ALLERGIES Unknown Allergies SOCIAL HISTORY No smoking Hx information available PLAN OF CARE VITAL SIGNS MEDICATIONS Unknown Medications RESULTS No Results PROCEDURES No Known procedures IMMUNIZATIONS No Known Immunizations
--- OUTSIDE RECORDS SUMMARY | 2017-07-14 15:42 | XMS REPORT ---
Author Author SONNY PARRISH Organization [facility] Address [address] [place] [address] Care Team Providers Care Marketing Instructor Name Role Phone SONNY PARRISH Unavailable PROBLEMS Type Condition ICD9-CM Code QKT50-UY Code Onset Dates Condition Status SNOMED Code Problem Anxiety F41.9 Active 74624443 Problem Encounter for dental examination Z01.20 Active 652287162 ALLERGIES No Information SOCIAL HISTORY Never Assessed PLAN OF CARE VITAL SIGNS MEDICATIONS Medication Instructions Dosage Frequency Start Date End Date Duration Status Estratest 1.25-2.5 MG Orally Once a day 2 tablets 24h Sep, Active RESULTS No Results PROCEDURES No Known procedures IMMUNIZATIONS No Known Immunizations MEDICAL (GENERAL) HISTORY Type Description Date Medical History stomach ulcers in past Medical History Colon spasms Surgical History Obstructed bowel surgery 2011 Surgical History Partial stomach removal due to ulcers. Surgery at [facility] in [place] 10/2014 Surgical History ovarian cyst removal Surgical History Hysterectomy 2006 Surgical History appendectomy Surgical History EGD 02/06/2016 Surgical History Removed part of stomach [facility] 03/2016 Surgical History Infection removal of stomach [facility] 05/24/2016 Hospitalization History past surgeries
--- OUTSIDE RECORDS SUMMARY | 2017-07-14 15:42 | XMS REPORT ---
Author Author JACE ROBERTS [facility] eClinicalWorks Address Unknown Phone Unavailable Care Team Providers Care Thermodynamics Professor Name Role Phone JACE ROBERTS CP Unavailable Allergies No Known Allergies Problems Problem Type Condition Code Onset Dates Condition Status Assessment Chronic pain syndrome G89.4 Active Problem Cough 786.2 Active Problem Fever, unspecified 780.60 Active Problem Encounter for dental examination Z01.20 Active Problem Abdominal pain, generalized 789.07 Active Problem Acute sinusitis, unspecified 461.9 Active Problem Esophageal reflux 530.81 Active Problem Unspecified menopausal and postmenopausal disorder 627.9 Active Medications Medication Code System Code Instructions Start Date End Date Status Dosage Gabapentin [facility] [address]-83 600 MG Orally Three times a day TAKE ONE TABLET BY MOUTH THREE TIMES DAILY Results No Known Results Summary Purpose eClinicalWorks Submission
--- OUTSIDE RECORDS SUMMARY | 2017-07-14 15:42 | XMS REPORT ---
Author SONNY Boyce Organization e[employer] Address Unknown Phone Unavailable Care Team Providers Care King Maker Name Role Phone SONNY PARRISH CP [...]
--- OUTSIDE RECORDS SUMMARY | 2017-07-14 15:42 | XMS REPORT ---
Author Author AALIYAH BACH [employer] Address Unknown Phone Unavailable Care Team Providers Care Brake Repairer Air Name Role Phone AALIYAH BACH CP Unavailable Allergies, Adverse Reactions, Alerts Substance [...] Date End Date Status Dosage Tramadol HCl NDC 0 not defined Hydrocodone-Acetaminophen [facility] [address]-69 not defined Gabapentin [facility] [address]-61 600 MG Orally 3 times a day 1 tablet Protonix [facility] [address]-35 40 MG Orally 3 times a day September 06, 2014 1 Tablet Reglan [facility] 26473071963 10 MG 1 tablet by Oral route 4 times per day Librax [facility] [address]-28 5-2.5 MG Orally Twice a day 1 capsule before meals Ortho-Cyclen (28) [facility] [address]-44 0.25-35 MG-MCG Orally Once a day 1 tablet Estratest ND 0 ... by oral route Once a day 2 tablets Procedures Procedure Coding System Code Date INTRAORL-PERIAPICAL 1 FILM 89941 CPT-4 D0220 Mar 26, 2016 INTRAORL-PERIAPICAL 1 FILM 23077 CPT-4 D0220 Mar 26, 2016 INTRAORL-PERIAPICAL 1 FILM 84929 CPT-4 D0220 Mar 26, 2016 EXTRAC ERUPTED TOOTH/EXPOSED ROOT CPT-4 D7140 Mar 26, 2016 Vital Signs Date/Time: Mar 26, 2016 Blood Pressure Diastolic 65 mmHg Blood Pressure Systolic 112 mmHg Height 60 in Results No Known Results Summary Purpose eClinicalWorks Submission
--- OUTSIDE RECORDS SUMMARY | 2017-07-14 15:42 | XMS REPORT ---
Author SONNY Boyce Organization [employer] Address Unknown Phone Unavailable Care Team Providers Care Bilingual Speech Therapist Name Role Phone SONNY PARRISH CP [...]
--- OUTSIDE RECORDS SUMMARY | 2017-07-14 15:44 | XMS REPORT | Continuity of Care Document ---
Author Author [facility] Address Unknown Phone Unavailable Allergies Active Description Code Type Severity Reaction Onset Reported/Identified Relationship to Patient Clinical Status Yes Flagyl Drug Allergy N/A N/A 10/12/2013 Yes morphine Drug Allergy N/A N/A 10/12/2013 Yes Sulfa (Sulfonamide Antibiotics) Drug Allergy N/A N/A 10/12/2013 Yes FLU VACCINE FLU VACCINE Unknown N/A 04/21/2014 Yes morphine [id number] Drug Allergy Severe ITCHING AND FLU 04/28/2016 Yes metronidazole [id number] Drug Allergy Unknown N/A 04/28/2016 Yes Sulfa (Sulfonamide Antibiotics) [id number] Drug Allergy Unknown N/A 2015 Yes morphine [id number] Drug Allergy Severe ITCHING FLUSH 06/23/2016 Yes Influenza Virus Vaccines [id number] Drug Allergy Unknown N/A 06/23/2016 Medications There is no data. Problems Date Dx Coded Attending Type Code Diagnosis Diagnosed By 09/05/2010 Ot 530.81 09/05/2010 Ot 531.90 09/05/2010 Ot 935.2 10/10/2010 Ot 716.90 10/10/2010 Ot 729.81 07/24/2011 Ot 455.3 EXT HEMORRHOID W/O COMPL 07/24/2011 Ot 564.00 UNSPEC CONSTIPATION 02/18/2012 Ot 787.03 VOMITING ALONE 02/18/2012 Ot 789.01 ABDOMINAL PAIN, RIGHT UPPER QUADRANT 02/25/2012 Ot 305.1 TOBACCO USE DISORDER 02/25/2012 Ot 560.81 INTEST ADHES W [id number] 03/20/2013 RAN MERRITT PROFESSOR OF VOICE Ot 466.0 ACUTE BRONCHITIS 03/20/2013 RAN MERRITT PROFESSOR OF VOICE Ot 786.2 COUGH 09/26/2013 PÉREZ HORVATH MD Ot 564.00 UNSPEC CONSTIPATION 09/26/2013 PÉREZ HORVATH MD Ot 787.01 NAUSEA WITH VOMITING 10/12/2013 BETHANY DDS, TAMMY 789.07 ABDOMINAL PAIN GENERALIZED 10/12/2013 ANJANA PROFESSOR OF VOICE, ZAC R 789.07 ABDOMINAL PAIN GENERALIZED 10/12/2013 ANJANA PROFESSOR OF VOICE, ZAC R 789.07 ABDOMINAL PAIN GENERALIZED 10/12/2013 ANJANA PROFESSOR OF VOICE, ZAC R 789.07 ABDOMINAL PAIN GENERALIZED 10/12/2013 WHITLEY ROCHE APRN S 789.07 ABDOMINAL PAIN GENERALIZED 10/12/2013 JONATHAN TODD DO K 789.07 ABDOMINAL PAIN GENERALIZED 10/20/2013 YULIET DONOHUE, PÉREZ Harry Ot 564.00 UNSPEC CONSTIPATION 10/20/2013 YULIET DONOHUE, PÉREZ Harry Ot 599.0 URIN TRACT INFECTION NOS 10/20/2013 YULIET DONOHUE, PÉREZ Harry Ot 789.09 ABDOMINAL PAIN, OTHER SPECIFIED SITE 12/18/2013 MICKEY DONOHUE, MEGAN S Ot 530.11 REFLUX ESOPHAGITIS 12/18/2013 MICKEY DONOHUE, MEGAN S Ot 532.90 DUODENAL ULCER NOS 12/18/2013 MICKEY DONOHUE, MEGAN S Ot 535.40 OTH SPECIFIED GASTRITIS,W/O MENTION OF H 01/13/2014 MICKEY DONOHUE, MEGAN S Ot 530.11 REFLUX ESOPHAGITIS 01/13/2014 MICKEY DONOHUE, MEGAN S Ot 531.90 STOMACH ULCER NOS 02/24/2014 MICKEY DONOHUE, MEGAN S Ot 530.11 REFLUX ESOPHAGITIS 02/24/2014 MICKEY DONOHUE, MEGAN S Ot 531.90 STOMACH ULCER NOS 03/09/2014 ANJANA PROFESSOR OF VOICE, ZAC R 780.60 FEVER, UNSPECIFIED 03/09/2014 ANJANA PROFESSOR OF VOICE, ZAC R 786.2 COUGH 03/09/2014 ANJANA PROFESSOR OF VOICE, ZAC R 780.60 FEVER, UNSPECIFIED 03/09/2014 ANJANA PROFESSOR OF VOICE, ZAC R 786.2 COUGH 03/09/2014 ANJANA PROFESSOR OF VOICE, ZAC R 780.60 FEVER, UNSPECIFIED 03/09/2014 ANJANA PROFESSOR OF VOICE, ZAC R 786.2 COUGH 03/09/2014 FATOUMATA ROCHE APRNNDA S 780.60 FEVER, UNSPECIFIED 03/09/2014 KALEY ADLER WHITLEY S 786.2 COUGH 03/09/2014 AUBRIE TODD DOA K 780.60 FEVER, UNSPECIFIED 03/09/2014 JONATHAN TODD DO K 786.2 COUGH 03/31/2014 MEGAN AREVALO MD Ot 537.0 ACQ PYLORIC STENOSIS 03/31/2014 MEGAN AREVALO MD Ot V74.8 SCREEN-BACTERIAL DIS NEC 04/07/2014 MEGAN AREVALO MD Ot 530.11 REFLUX ESOPHAGITIS 04/07/2014 MEGAN AREVALO MD Ot 537.0 ACQ PYLORIC STENOSIS 04/14/2014 MEGAN AREVALO MD Ot 530.0 ACHALASIA CARDIOSPASM 04/14/2014 MEGAN AREVALO MD Ot 530.11 REFLUX ESOPHAGITIS 04/14/2014 MEGAN AREVALO MD Ot 531.90 STOMACH ULCER NOS 04/14/2014 MEGAN AREVALO MD Ot 537.0 ACQ PYLORIC STENOSIS 04/21/2014 MEGAN AREVALO MD Ot 530.11 REFLUX ESOPHAGITIS 04/21/2014 MEGAN AREVALO MD Ot 531.90 STOMACH ULCER NOS 04/21/2014 MEGAN AREVALO MD Ot 537.0 ACQ PYLORIC STENOSIS 05/10/2014 ANJANA ADLER ZAC R 530.81 ESOPHAGEAL REFLUX 05/10/2014 ANJANA ADLER ZAC R 627.9 UNSPECIFIED MENOPAUSAL AND POSTMENOPAUSAL DISORDER 05/10/2014 WHITLEY ROCHE APRN S 530.81 ESOPHAGEAL REFLUX 05/10/2014 YENNY ROCHE APRNA S 627.9 UNSPECIFIED MENOPAUSAL AND POSTMENOPAUSAL DISORDER 05/10/2014 JONATHAN TODD DO K 530.81 ESOPHAGEAL REFLUX 05/10/2014 JONATHAN TODD DO K 627.9 UNSPECIFIED MENOPAUSAL AND POSTMENOPAUSAL DISORDER 05/12/2014 MEGAN AREVALO MD Ot 537.0 ACQ PYLORIC STENOSIS 05/26/2014 MEGAN AREVALO MD Ot 530.11 REFLUX ESOPHAGITIS 05/26/2014 MEGAN AREVALO MD Ot 531.90 STOMACH ULCER NOS 05/26/2014 MEGAN AREVALO MD Ot 537.0 ACQ PYLORIC STENOSIS 06/09/2014 MEGAN AREVALO MD Ot 530.11 REFLUX ESOPHAGITIS 06/09/2014 MEGAN AREVALO MD Ot 531.90 STOMACH ULCER NOS 06/09/2014 MICKEY MD, MEGAN S Ot 537.0 ACQ PYLORIC STENOSIS 06/24/2014 MICKEY DONOHUE, MEGAN Watts Ot 530.11 06/24/2014 MICKEY DONOHUE, MEGAN Watts Ot 537.0 06/24/2014 MICKEY DONOHUE, MEGAN Watts Ot 530.11 06/24/2014 MICKEY DONOHUE, MEGAN S Ot 531.90 06/24/2014 MICKEY DONOHUE, MEGAN Watts Ot 537.0 06/27/2014 WHITLEY ROCHE APRN 461.9 SINUSITIS ACUTE 06/27/2014 PEYTON VALENCIA JONATHAN K 461.9 SINUSITIS ACUTE 07/08/2014 CINDY DONOHUE, CROW Zhao Ot 537.0 ACQ PYLORIC STENOSIS 07/08/2014 CINDY DONOHUE, CROW Zhao Ot 787.03 VOMITING ALONE 07/09/2014 SONNY KRISHNAN DO Ot 780.4 DIZZINESS AND GIDDINESS 07/09/2014 SONNY KRISHNAN DO Ot 787.01 NAUSEA WITH VOMITING 07/09/2014 SONNY KRISHNAN DO Ot 792.1 ABN FIND-STOOL CONTENTS 07/20/2014 Ot 789.00 07/20/2014 Ot 787.3 07/20/2014 Ot 533.90 07/20/2014 Ot 719.40 07/20/2014 Ot 783.21 07/20/2014 Ot 793.82 07/20/2014 Ot V76.12 07/20/2014 MICKEY DONOHUE, MEGAN Watts Ot V72.84 07/20/2014 MICKEY DONOHUE, MEGAN Watts Ot V72.84 07/20/2014 MICKEY DONOHUE, MEGAN Watts Ot V72.84 07/20/2014 MICKEY DONOHUE, MEGAN Watts Ot 530.11 07/20/2014 MICKEY DONOHUE, MEGAN S Ot 531.90 07/20/2014 MICKEY DONOHUE, MEGAN S Ot 537.0 07/20/2014 MICKEY DONOHUE, MEGAN Watts Ot V72.84 07/20/2014 MICKEY DONOHUE, MEGAN Watts Ot V72.84 07/20/2014 MICKEY DONOHUE, MEGAN Watts Ot 530.11 07/20/2014 MICKEY DONOHUE, MEGAN Watts Ot 537.0 07/20/2014 MICKEY DONOHUE, MEGAN Watts Ot V72.84 07/20/2014 MICKEY DONOHUE, MEGAN S Ot 530.11 07/20/2014 MICKEY DONOHUE, MEGAN S Ot 531.90 07/20/2014 MICKEY DONOHUE, MEGAN S Ot 537.0 07/20/2014 MICKEY DONOHUE, MEGAN S Ot V72.84 07/20/2014 MICKEY DONOHUE, MEGAN S Ot V72.84 07/20/2014 MICKEY DONOHUE, MEGAN S Ot V72.84 07/20/2014 MICKEY DONOHUE, MEGAN S Ot V72.84 07/20/2014 MICKEY DONOHUE, MEGAN S Ot V72.84 07/20/2014 MICKEY DONOHUE, MEGAN S Ot V72.84 07/22/2014 MICKEY DONOHUE, MEGAN S Ot 530.11 07/22/2014 MICKEY DONOHUE, MEGAN S Ot 537.0 07/22/2014 MICKEY DONOHUE, MEGAN S Ot 530.11 07/22/2014 MICKEY DONOHUE, MEGAN S Ot 531.90 07/22/2014 MICKEY DONOHUE, MEGAN S Ot 537.0 10/03/2014 MICKEY DONOHUE, MEGAN S Ot V72.84 10/17/2014 ELY DONOHUE, YONIS T Ot 787.01 10/17/2014 ELY DONOHUE, YONIS T Ot 787.03 10/17/2014 ELY DONOHUE, YONIS T Ot 789.06 10/20/2014 Ot 789.00 10/20/2014 Ot 787.3 10/20/2014 Ot 533.90 10/20/2014 Ot 719.40 10/20/2014 Ot 783.21 10/20/2014 Ot 793.82 10/20/2014 Ot V76.12 10/20/2014 MICKEY DONOHUE, MEGAN S Ot V72.84 10/20/2014 MICKEY DONOHUE, MEGAN S Ot V72.84 10/20/2014 MICKEY DONOHUE, MEGAN S Ot V72.84 10/20/2014 MICKEY DONOHUE, MEGAN S Ot 530.11 10/20/2014 MICKEY DONOHUE, MEGAN S Ot 531.90 10/20/2014 MICKEY DONOHUE, MEGAN S Ot 537.0 10/20/2014 MICKEY DONOHUE, MEGAN S Ot V72.84 10/20/2014 MICKEY DONOHUE, MEGAN S Ot V72.84 10/20/2014 MICKEY DONOHUE, MEGAN S Ot 530.11 10/20/2014 MICKEY DONOHUE, MEGAN S Ot 537.0 10/20/2014 MICKEY DONOHUE, MEGAN S Ot V72.84 10/20/2014 MICKEY DONOHUE, MEGAN S Ot 530.11 10/20/2014 MICKEY DONOHUE, MEGAN S Ot 531.90 10/20/2014 MICKEY DONOHUE, MEGAN S Ot 537.0 10/20/2014 MICKEY DONOHUE, MEGAN S Ot V72.84 10/20/2014 MICKEY DONOHUE, MEGAN S Ot V72.84 10/20/2014 MICKEY DONOHUE, MEGAN S Ot V72.84 10/20/2014 MICKEY DONOHUE, MEGAN S Ot V72.84 10/20/2014 MICKEY DONOHUE, MEGAN S Ot V72.84 10/26/2014 MICKEY DONOHUE, MEGAN S Ot V72.84 04/06/2015 MARCELO MONACO Ot K02.9 DENTAL CARIES, UNSPECIFIED 04/06/2015 MARCELO MONACO Ot K08.8 OTHER SPECIFIED DISORDERS OF TEETH AND S 04/06/2015 Ot 789.00 04/06/2015 Ot 787.3 04/06/2015 Ot 533.90 04/06/2015 Ot 719.40 04/06/2015 Ot 783.21 04/06/2015 Ot 793.82 04/06/2015 Ot V76.12 04/06/2015 MICKEY DONOHUE, MEGAN S Ot V72.84 04/06/2015 MICKEY DONOHUE, MEGAN S Ot V72.84 04/06/2015 MICKEY DONOHUE, MEGAN S Ot V72.84 04/06/2015 MICKEY DONOHUE, MEGAN S Ot 530.11 04/06/2015 MICKEY DONOHUE, MEGAN S Ot 531.90 04/06/2015 MICKEY DONOHUE, MEGAN S Ot 537.0 04/06/2015 MICKEY DONOHUE, MEGAN S Ot V72.84 04/06/2015 MICKEY DONOHUE, MEGAN S Ot V72.84 04/06/2015 MICKEY DONOHUE, MEGAN S Ot 530.11 04/06/2015 MICKEY DONOHUE, MEGAN S Ot 537.0 04/06/2015 MICKEY DONOHUE, MEGAN S Ot V72.84 04/06/2015 MICKEY DONOHUE, MEGAN S Ot 530.11 04/06/2015 MICKEY DONOHUE, MEGAN S Ot 531.90 04/06/2015 MICKEY DONOHUE, MEGAN S Ot 537.0 04/06/2015 MICKEY DONOHUE, MEGAN S Ot V72.84 04/06/2015 MICKEY DONOHUE, MEGAN S Ot V72.84 04/06/2015 MICKEY DONOHUE, MEGAN S Ot V72.84 04/06/2015 MICKEY DONOHUE, MEGAN S Ot V72.84 04/06/2015 MICKEY DONOHUE, MEGAN S Ot V72.84 05/09/2015 Ot 789.00 05/09/2015 Ot 787.3 05/09/2015 Ot 533.90 05/09/2015 Ot 719.40 05/09/2015 Ot 783.21 05/09/2015 Ot 793.82 05/09/2015 Ot V76.12 05/09/2015 MICKEY DONOHUE, MEGAN S Ot V72.84 05/09/2015 MICKEY DONOHUE, MEGAN S Ot V72.84 05/09/2015 MICKEY DONOHUE, MEGAN S Ot V72.84 05/09/2015 MICKEY DONOHUE, MEGAN S Ot 530.11 05/09/2015 MICKEY DONOHUE, MEGAN S Ot 531.90 05/09/2015 MICKEY DONOHUE, MEGAN S Ot 537.0 05/09/2015 MICKEY DONOHUE, MEGAN S Ot V72.84 05/09/2015 MICKEY DONOHUE, MEGAN S Ot V72.84 05/09/2015 MICKEY DONOHUE, MEGAN S Ot 530.11 05/09/2015 MICKEY DONOHUE, MEGAN S Ot 537.0 05/09/2015 MICKEY DONOHUE, MEGAN S Ot V72.84 05/09/2015 MICKEY DONOHUE, MEGAN S Ot 530.11 05/09/2015 MICKEY DONOHUE, MEGAN S Ot 531.90 05/09/2015 MICKEY DONOHUE, MEGAN S Ot 537.0 05/09/2015 MICKEY DONOHUE, MEGAN S Ot V72.84 05/09/2015 MICKEY DONOHUE, MEGAN S Ot V72.84 05/09/2015 MICKEY DONOHUE, MEGAN S Ot V72.84 05/09/2015 MICKEY DONOHUE, MEGAN S Ot V72.84 05/09/2015 MICKEY DONOHUE, MEGAN S Ot V72.84 10/06/2015 Ot 789.00 10/06/2015 Ot 787.3 10/06/2015 Ot 533.90 10/06/2015 Ot 719.40 10/06/2015 Ot 783.21 10/06/2015 Ot 793.82 10/06/2015 Ot V76.12 10/06/2015 MICKEY DONOHUE, MEGAN S Ot V72.84 10/06/2015 MICKEY DONOHUE, MEGAN S Ot V72.84 10/06/2015 MICKEY DONOHUE, MEGAN S Ot V72.84 10/06/2015 MICKEY DONOHUE, MEGAN S Ot 530.11 10/06/2015 IMCKEY DONOHUE, MEGAN S Ot 531.90 10/06/2015 MICKEY DONOHUE, MEGAN S Ot 537.0 10/06/2015 MICKEY DONOHUE, MEGAN S Ot V72.84 10/06/2015 MICKEY DONOHUE, MEGAN S Ot V72.84 10/06/2015 MICKEY DONOHUE, MEGAN S Ot 530.11 10/06/2015 MICKEY DONOHUE, MEGAN S Ot 537.0 10/06/2015 MICKEY DONOHUE, MEGAN S Ot V72.84 10/06/2015 MICKEY DONOHUE, MEGAN S Ot 530.11 10/06/2015 MICKEY DONOHUE, MEGAN S Ot 531.90 10/06/2015 MICKEY DONOHUE, MEGAN S Ot 537.0 10/06/2015 MICKEY DONOHUE, MEGAN S Ot V72.84 10/06/2015 MICKEY DONOHUE, MEGAN S Ot V72.84 10/06/2015 MICKEY DONOHUE, MEGAN S Ot V72.84 10/06/2015 MICKEY DONOHUE, MEGAN S Ot V72.84 10/06/2015 MICKEY DONOHUE, MEGAN S Ot V72.84 10/10/2015 Ot Z12.31 10/18/2015 Ot Z12.31 04/24/2016 VIDA CHANCE DO Ot R11.2 NAUSEA WITH VOMITING, UNSPECIFIED 04/24/2016 Ot 533.90 PEPTIC ULCER NOS 04/24/2016 Ot 719.40 JOINT PAIN- UNSPEC 04/24/2016 Ot 783.21 LOSS OF WEIGHT 04/24/2016 Ot 793.82 INCONCLUSIVE MAMMOGRAM 04/24/2016 Ot V76.12 OTH SCREEN MAMMO-MALIGN NEOPLASM OF ZOE 04/24/2016 MICKEY DONOHUE, MEGAN S Ot V72.84 EXAM PRE-OPERATIVE NOS 04/24/2016 MICKEY DONOHUE, MEGAN Watts Ot V72.84 EXAM PRE-OPERATIVE NOS 04/24/2016 MICKEY DONOHUE, MEGAN S Ot V72.84 EXAM PRE-OPERATIVE NOS 04/24/2016 MICKEY DONOHUE, MEGAN S Ot 530.11 REFLUX ESOPHAGITIS 04/24/2016 MICKEY ODNOHUE, MEGAN S Ot 531.90 STOMACH ULCER NOS 04/24/2016 MICKEY DONOHUE, MEGAN S Ot 537.0 ACQ PYLORIC STENOSIS 04/24/2016 MEGAN AREVALO MD S Ot V72.84 EXAM PRE-OPERATIVE NOS 04/24/2016 MEGAN AREVALO MD S Ot V72.84 EXAM PRE-OPERATIVE NOS 04/24/2016 MICKEY DONOHUE, MEGAN S Ot 530.11 REFLUX ESOPHAGITIS 04/24/2016 MEGAN AREVALO MD S Ot 537.0 ACQ PYLORIC STENOSIS 04/24/2016 MEGAN AREVALO MD S Ot V72.84 EXAM PRE-OPERATIVE NOS 04/24/2016 MICKEY DONOHUE, MEGAN S Ot 530.11 REFLUX ESOPHAGITIS 04/24/2016 MICKEY DONOHUE, MEGAN S Ot 531.90 STOMACH ULCER NOS 04/24/2016 MEGAN AREVALO MD S Ot 537.0 ACQ PYLORIC STENOSIS 04/24/2016 MEGAN AREVALO MD S Ot V72.84 EXAM PRE-OPERATIVE NOS 04/24/2016 MEGAN AREVALO MD S Ot V72.84 EXAM PRE-OPERATIVE NOS 04/24/2016 MEGAN AREVALO MD S Ot V72.84 EXAM PRE-OPERATIVE NOS 04/24/2016 MEGAN AREVALO MD S Ot V72.84 EXAM PRE-OPERATIVE NOS 04/24/2016 MEGAN AREVALO MD S Ot V72.84 EXAM PRE-OPERATIVE NOS 04/24/2016 Ot Z12.31 ENCNTR SCREEN MAMMOGRAM FOR MALIGNANT NE 04/24/2016 VIDA CHANCE DO Ot R11.2 NAUSEA WITH VOMITING, UNSPECIFIED 04/24/2016 CINDY DONOHUE, CROW Zhao Ot K92.0 HEMATEMESIS 04/24/2016 CINDY DONOHUE, CROW Zhao Ot K92.2 GASTROINTESTINAL HEMORRHAGE, UNSPECIFIED 04/24/2016 CINDY DONOHUE, CROW Zhao Ot R10.13 EPIGASTRIC PAIN 04/24/2016 CINDY DONOHUE, CROW Zhao Ot R11.0 NAUSEA 04/24/2016 CINDY DONOHUE, CROW Zhao Ot Z87.11 PERSONAL HISTORY OF PEPTIC ULCER DISEASE 04/24/2016 CINDY DONOHUE, CROW Zhao Ot Z98.890 OTHER SPECIFIED POSTPROCEDURAL STATES 04/25/2016 Ot 533.90 PEPTIC ULCER NOS 04/25/2016 Ot 719.40 JOINT PAIN- UNSPEC 04/25/2016 Ot 783.21 LOSS OF WEIGHT 04/25/2016 Ot 793.82 INCONCLUSIVE MAMMOGRAM 04/25/2016 Ot V76.12 OTH SCREEN MAMMO-MALIGN NEOPLASM OF ZOE 04/25/2016 MICKEY DONOHUE, MEGAN S Ot V72.84 EXAM PRE-OPERATIVE NOS 04/25/2016 MICKEY DONOHUE, MEGAN S Ot V72.84 EXAM PRE-OPERATIVE NOS 04/25/2016 MICKEY DONOHUE, MEGAN S Ot V72.84 EXAM PRE-OPERATIVE NOS 04/25/2016 MICKEY DONOHUE, MEGAN S Ot 530.11 REFLUX ESOPHAGITIS 04/25/2016 MICKEY DONOHUE, MEGAN S Ot 531.90 STOMACH ULCER NOS 04/25/2016 MICKEY DONOHUE, MEGAN S Ot 537.0 ACQ PYLORIC STENOSIS 04/25/2016 MICKEY DONOHUE, MEGAN S Ot V72.84 EXAM PRE-OPERATIVE NOS 04/25/2016 MICKEY DONOHUE, MEGAN S Ot V72.84 EXAM PRE-OPERATIVE NOS 04/25/2016 MICKEY DONOHUE, MEGAN S Ot 530.11 REFLUX ESOPHAGITIS 04/25/2016 MICKEY DONOHUE, MEGAN S Ot 537.0 ACQ PYLORIC STENOSIS 04/25/2016 MICKEY DONOHUE, MEGAN S Ot V72.84 EXAM PRE-OPERATIVE NOS 04/25/2016 MICKEY DONOHUE, MEGAN S Ot 530.11 REFLUX ESOPHAGITIS 04/25/2016 MICKEY DONOHUE, MEGAN S Ot 531.90 STOMACH ULCER NOS 04/25/2016 MICKEY DONOHUE, MEGAN Watts Ot 537.0 ACQ PYLORIC STENOSIS 04/25/2016 MICKEY DONOHUE, MEGAN S Ot V72.84 EXAM PRE-OPERATIVE NOS 04/25/2016 MICKEY DONOHUE, MEGAN Watts Ot V72.84 EXAM PRE-OPERATIVE NOS 04/25/2016 MICKEY DONOHUE, MEGAN Watts Ot V72.84 EXAM PRE-OPERATIVE NOS 04/25/2016 MICKEY DONOHUE, MEGAN Watts Ot V72.84 EXAM PRE-OPERATIVE NOS 04/25/2016 MICKEY DONOHUE, MEGAN Watts Ot V72.84 EXAM PRE-OPERATIVE NOS 04/25/2016 Ot Z12.31 ENCNTR SCREEN MAMMOGRAM FOR MALIGNANT NE 04/25/2016 VIDA CHANCE DO Ot R11.2 NAUSEA WITH VOMITING, UNSPECIFIED 04/26/2016 CINDY DONOHUE, CROW Zhao Ot K92.0 HEMATEMESIS 04/26/2016 CINDY DONOHUE, CROW Zhao Ot K92.2 GASTROINTESTINAL HEMORRHAGE, UNSPECIFIED 04/26/2016 CINDY DONOHUE, CROW A Ot R10.13 EPIGASTRIC PAIN 04/26/2016 CROW WHITE MD Ot R11.0 NAUSEA 04/26/2016 CINDY DONOHUE, CROW A Ot Z87.11 PERSONAL HISTORY OF PEPTIC ULCER DISEASE 04/26/2016 CIDNY DONOHUE, CROW A Ot Z98.890 OTHER SPECIFIED POSTPROCEDURAL STATES 04/30/2016 Ot 793.82 INCONCLUSIVE MAMMOGRAM 04/30/2016 Ot V76.12 OTH SCREEN MAMMO-MALIGN NEOPLASM OF ZOE 04/30/2016 MICKEY DONOHUE, MEGAN Watts Ot V72.84 EXAM PRE-OPERATIVE NOS 04/30/2016 MICKEY DONOHUE, MEGAN Watts Ot V72.84 EXAM PRE-OPERATIVE NOS 04/30/2016 MICKEY DONOHUE, MEGAN Watts Ot V72.84 EXAM PRE-OPERATIVE NOS 04/30/2016 MICKEY DONOHUE, MEGAN S Ot 530.11 REFLUX ESOPHAGITIS 04/30/2016 MICKEY DONOHUE, MEGAN Watts Ot 531.90 STOMACH ULCER NOS 04/30/2016 MICKEY DONOHUE, MEGAN Watts Ot 537.0 ACQ PYLORIC STENOSIS 04/30/2016 MEGAN AREVALO MD Ot V72.84 EXAM PRE-OPERATIVE NOS 04/30/2016 MICKEY DONOHUE, MEGAN Watts Ot V72.84 EXAM PRE-OPERATIVE NOS 04/30/2016 MICKEY DONOHUE, MEGAN Watts Ot 530.11 REFLUX ESOPHAGITIS 04/30/2016 MEGAN AREVALO MD Ot 537.0 ACQ PYLORIC STENOSIS 04/30/2016 MEGAN AREVALO MD Ot V72.84 EXAM PRE-OPERATIVE NOS 04/30/2016 MICKEY DONOHUE, MEGAN S Ot 530.11 REFLUX ESOPHAGITIS 04/30/2016 MICKEY DONOHUE, MEGAN S Ot 531.90 STOMACH ULCER NOS 04/30/2016 MICKEY DONOHUE, MEGAN S Ot 537.0 ACQ PYLORIC STENOSIS 04/30/2016 MICKEY DONOHUE, MEGAN S Ot V72.84 EXAM PRE-OPERATIVE NOS 04/30/2016 MICKEY DONOHUE, MEGAN S Ot V72.84 EXAM PRE-OPERATIVE NOS 04/30/2016 MICKEY DONOHUE, MEGAN S Ot V72.84 EXAM PRE-OPERATIVE NOS 04/30/2016 MICKEY DONOHUE, MEGAN S Ot V72.84 EXAM PRE-OPERATIVE NOS 04/30/2016 MICKEY DONOHUE, MEGAN S Ot V72.84 EXAM PRE-OPERATIVE NOS 04/30/2016 Ot Z12.31 ENCNTR SCREEN MAMMOGRAM FOR MALIGNANT NE 04/30/2016 VIDA CHANCE DO Ot R11.2 NAUSEA WITH VOMITING, UNSPECIFIED 04/30/2016 GIO PELAYO DOI Ot D62 ACUTE POSTHEMORRHAGIC ANEMIA 04/30/2016 JENNYFER PELAYO DO Ot I95.9 HYPOTENSION, UNSPECIFIED 04/30/2016 JENNYFER PELAYO DO Ot K25.0 ACUTE GASTRIC ULCER WITH HEMORRHAGE 04/30/2016 JENNYFER PELAYO DO Ot K63.5 POLYP OF COLON 04/30/2016 JENNYFER PELAYO DO Ot K91.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 05/01/2016 CINDY DONOHUE, CROW Zhao Ot K92.0 HEMATEMESIS 05/01/2016 CINDY DONOHUE, CROW Zhao Ot K92.2 GASTROINTESTINAL HEMORRHAGE, UNSPECIFIED 05/01/2016 CINDY DONOHUE, CROW Zhao Ot R10.13 EPIGASTRIC PAIN 05/01/2016 CROW WHITE MD Ot R11.0 NAUSEA 05/01/2016 CINDY DONOHUE, CROW Zhao Ot Z87.11 PERSONAL HISTORY OF PEPTIC ULCER DISEASE 05/01/2016 CROW WHITE MD Ot Z98.890 OTHER SPECIFIED POSTPROCEDURAL STATES 05/01/2016 VIDA CHANCE DO Ot R11.2 NAUSEA WITH VOMITING, UNSPECIFIED 05/09/2016 GIO PELAYO DOI Ot D62 ACUTE POSTHEMORRHAGIC ANEMIA 05/09/2016 JENNYFER PELAYO DO Ot I95.9 HYPOTENSION, UNSPECIFIED 05/09/2016 JENNYFER PELAYO DO Ot K25.0 ACUTE GASTRIC ULCER WITH HEMORRHAGE 05/09/2016 JENNYFER PELAYO DO Ot K63.5 POLYP OF COLON 05/22/2016 YANI DONOHUE, GARRY Zhao Ot D50.0 IRON DEFICIENCY ANEMIA SECONDARY TO BLOO 05/24/2016 YONIS GRAVES MD Ot A41.9 SEPSIS, UNSPECIFIED ORGANISM 05/24/2016 ELY DONOHUE, YONIS T Ot F17.210 NICOTINE DEPENDENCE, CIGARETTES, UNCOMPL 05/24/2016 ELY DONOHUE, YONIS T Ot K65.1 PERITONEAL ABSCESS 05/24/2016 ELY DONOHUE, YONIS T Ot K86.89 OTHER SPECIFIED DISEASES OF PANCREAS 05/24/2016 YONIS GRAVES MD T Ot K92.89 OTHER SPECIFIED DISEASES OF THE DIGESTIV 05/24/2016 YONIS GRAVES MD T Ot N39.0 URINARY TRACT INFECTION, SITE NOT SPECIF 05/24/2016 YONIS GRAVES MD T Ot R10.30 LOWER ABDOMINAL PAIN, UNSPECIFIED 05/27/2016 YONIS GRAVES MD Ot A41.9 SEPSIS, UNSPECIFIED ORGANISM 05/27/2016 ELY DONOHUE, YONIS Hua Ot F17.210 NICOTINE DEPENDENCE, CIGARETTES, UNCOMPL 05/27/2016 YONIS GRAVES MD T Ot K65.1 PERITONEAL ABSCESS 05/27/2016 YONIS GRAVES MD T Ot K86.89 OTHER SPECIFIED DISEASES OF PANCREAS 05/27/2016 YONIS GRAVES MD T Ot K92.89 OTHER SPECIFIED DISEASES OF THE DIGESTIV 05/27/2016 YONIS GRAVES MD Ot N39.0 URINARY TRACT INFECTION, SITE NOT SPECIF 05/27/2016 YONIS GRAVES MD T Ot R10.30 LOWER ABDOMINAL PAIN, UNSPECIFIED 05/29/2016 YANI DONOHUE, GARRY Zhao Ot D50.0 IRON DEFICIENCY ANEMIA SECONDARY TO BLOO 06/05/2016 YONIS GRAVES MD Ot A41.9 SEPSIS, UNSPECIFIED ORGANISM 06/05/2016 OSWALDO GRAVES MDUA T Ot F17.210 NICOTINE DEPENDENCE, CIGARETTES, UNCOMPL 06/05/2016 ELY DONOHUE, YONIS Hua Ot K65.1 PERITONEAL ABSCESS 06/05/2016 ELY DONOHUE, YONIS Hua Ot K86.89 OTHER SPECIFIED DISEASES OF PANCREAS 06/05/2016 YONIS GRAVES MD Ot K92.89 OTHER SPECIFIED DISEASES OF THE DIGESTIV 06/05/2016 ELY DONOHUE, YONIS Hua Ot N39.0 URINARY TRACT INFECTION, SITE NOT SPECIF 06/05/2016 YONIS GRAVES MD Ot R10.30 LOWER ABDOMINAL PAIN, UNSPECIFIED 06/23/2016 SHARI DONOHUE, DELPHINE Ot D72.829 ELEVATED WHITE BLOOD CELL COUNT, UNSPECI 06/23/2016 DELPHINE MCCARTHY MD Ot R10.13 EPIGASTRIC PAIN 06/23/2016 DELPHINE MCCARTHY MD Ot R50.9 FEVER, UNSPECIFIED 08/05/2016 Ot 793.82 INCONCLUSIVE MAMMOGRAM 08/05/2016 Ot V76.12 OTH SCREEN MAMMO-MALIGN NEOPLASM OF ZOE 08/05/2016 MICKEY DONOHUE, MEGAN Watts Ot V72.84 EXAM PRE-OPERATIVE NOS 08/05/2016 MICKEY DONOHUE, MEGAN Watts Ot V72.84 EXAM PRE-OPERATIVE NOS 08/05/2016 MICKEY DONOHUE, MEGAN Watts Ot V72.84 EXAM PRE-OPERATIVE NOS 08/05/2016 MEGAN AREVALO MD Ot 530.11 REFLUX ESOPHAGITIS 08/05/2016 MICKEY DONOHUE, MEGAN Watts Ot 531.90 STOMACH ULCER NOS 08/05/2016 MEGAN AREVALO MD Ot 537.0 ACQ PYLORIC STENOSIS 08/05/2016 MEGAN AREVALO MD Ot V72.84 EXAM PRE-OPERATIVE NOS 08/05/2016 MEGAN AREVALO MD Ot V72.84 EXAM PRE-OPERATIVE NOS 08/05/2016 MEGAN AREVALO MD Ot 530.11 REFLUX ESOPHAGITIS 08/05/2016 MEGAN AREVALO MD Ot 537.0 ACQ PYLORIC STENOSIS 08/05/2016 MEGAN AREVALO MD Ot V72.84 EXAM PRE-OPERATIVE NOS 08/05/2016 MEGAN AREVALO MD Ot 530.11 REFLUX ESOPHAGITIS 08/05/2016 MICKEY DONOHUE, MEGAN Watts Ot 531.90 STOMACH ULCER NOS 08/05/2016 MICKEY DONOHUE, MEGAN Watts Ot 537.0 ACQ PYLORIC STENOSIS 08/05/2016 MICKEY DONOHUE, MEGAN Watts Ot V72.84 EXAM PRE-OPERATIVE NOS 08/05/2016 MICKEY DONOHUE, MEGAN Watts Ot V72.84 EXAM PRE-OPERATIVE NOS 08/05/2016 MICKEY DONOHUE, MEGAN Watts Ot V72.84 EXAM PRE-OPERATIVE NOS 08/05/2016 MICKEY DONOHUE, MEGAN Watts Ot V72.84 EXAM PRE-OPERATIVE NOS 08/05/2016 MICKEY DONOHUE, MEGAN Watts Ot V72.84 EXAM PRE-OPERATIVE NOS 08/05/2016 Ot Z12.31 ENCNTR SCREEN MAMMOGRAM FOR MALIGNANT NE 08/05/2016 VIDA CHANCE DO Ot R11.2 NAUSEA WITH VOMITING, UNSPECIFIED 08/05/2016 YANI DONOHUE, GARRY Zhao Ot D50.0 IRON DEFICIENCY ANEMIA SECONDARY TO BLOO 08/05/2016 SONNY KRISHNAN DO Ot J45.901 UNSPECIFIED ASTHMA WITH (ACUTE) EXACERBA 08/05/2016 SONNY KRISHNAN DO Ot R05 COUGH 08/05/2016 SONNY KRISHNAN DO Ot R50.9 FEVER, UNSPECIFIED 08/05/2016 SONNY KRISHNAN DO Ot Z98.890 OTHER SPECIFIED POSTPROCEDURAL STATES Procedures Code Description Performed By Performed On 38.93 VENOUS CATHETERIZATION NEC 02/21/2012 54.51 LAPAROSCOP LYSIS-PERITONEAL ADHES 02/21/2012 81003 ROUTINE VENIPUNCTURE 10/12/2013 31153 CMP 10/13/2013 4251557 GFR CALC (RESULT ONLY) 10/13/2013 30712 LIPASE 10/13/2013 91413 ROUTINE VENIPUNCTURE 03/09/2014 88508 CBC 03/09/2014 98375 MYCOPLASMA ANTIBODY 03/09/2014 40980 OXIMETRY 03/09/2014 14128 UA W/ CULTURE IF INDICATED 04/06/2014 97537 CULTURE URINE 04/07/2014 51387 INFLUENZA A & B (IN-HOUSE) 06/27/2014 [id number] CONTROL BLEEDING IN GASTROINTESTINAL TRA 04/28/2016 Results Test Result Range Complete blood count (CBC) with automated white blood cell (WBC) differential - 04/23/16 14:00 Blood leukocytes automated count (number/volume) 9.0 10*3/uL 4.3-11.0 Blood erythrocytes automated count (number/volume) 3.25 10*6/uL 4.35-5.85 Venous blood hemoglobin measurement (mass/volume) 9.8 g/dL 11.5-16.0 Blood hematocrit (volume fraction) 30 % 35-52 Automated erythrocyte mean corpuscular volume 94 [foz_us] 80-99 Automated erythrocyte mean corpuscular hemoglobin (mass per erythrocyte) 30 pg 25-34 Automated erythrocyte mean corpuscular hemoglobin concentration measurement ( mass/volume) 32 g/dL 32-36 Automated erythrocyte distribution width ratio 15.7 % 10.0-14.5 Automated blood platelet count (count/volume) 395 10*3/uL 130-400 Automated blood platelet mean volume measurement 9.1 [foz_us] 7.4-10.4 Automated blood neutrophils/100 leukocytes 76 % 42-75 Automated blood lymphocytes/100 leukocytes 16 % 12-44 Blood monocytes/100 leukocytes 5 % 0-12 Automated blood eosinophils/100 leukocytes 2 % 0-10 Automated blood basophils/100 leukocytes 0 % 0-10 Blood neutrophils automated count (number/volume) 6.8 10*3 1.8-7.8 Blood lymphocytes automated count (number/volume) 1.5 10*3 1.0-4.0 Blood monocytes automated count (number/volume) 0.4 10*3 0.0-1.0 Automated eosinophil count 0.2 10*3/uL 0.0-0.3 Automated blood basophil count (count/volume) 0.0 10*3/uL 0.0-0.1 Comprehensive metabolic panel - 04/23/16 14:00 Serum or plasma sodium measurement (moles/volume) 140 mmol/L 135-145 Serum or plasma potassium measurement (moles/volume) 4.8 mmol/L 3.6-5.0 Serum or plasma chloride measurement (moles/volume) 108 mmol/L 98-107 Carbon dioxide 25 mmol/L 21-32 Serum or plasma anion gap determination (moles/volume) 7 mmol/L 5-14 Serum or plasma urea nitrogen measurement (mass/volume) 13 mg/dL 7-18 Serum or plasma creatinine measurement (mass/volume) 0.65 mg/dL 0.60-1.30 Serum or plasma urea nitrogen/creatinine mass ratio 20 NRG Serum or plasma creatinine measurement with calculation of estimated glomerular filtration rate > NRG Serum or plasma glucose measurement (mass/volume) 90 mg/dL 70-105 Serum or plasma calcium measurement (mass/volume) 8.5 mg/dL 8.5-10.1 Serum or plasma total bilirubin measurement (mass/volume) 0.2 mg/dL 0.1-1.0 Serum or plasma alkaline phosphatase measurement (enzymatic activity/volume) 61 U/L 40-136 Serum or plasma aspartate aminotransferase measurement (enzymatic activity/ volume) 17 U/L 5-34 Serum or plasma alanine aminotransferase measurement (enzymatic activity/volume ) 15 U/L 0-55 Serum or plasma protein measurement (mass/volume) 5.9 g/dL 6.4-8.2 Serum or plasma albumin measurement (mass/volume) 3.3 g/dL 3.2-4.5 Complete blood count (CBC) with automated white blood cell (WBC) differential - 04/24/16 13:23 Blood leukocytes automated count (number/volume) 9.2 10*3/uL 4.3-11.0 Blood erythrocytes automated count (number/volume) 2.20 10*6/uL 4.35-5.85 Venous blood hemoglobin measurement (mass/volume) 6.5 g/dL 11.5-16.0 Blood hematocrit (volume fraction) 21 % 35-52 Automated erythrocyte mean corpuscular volume 94 [foz_us] 80-99 Automated erythrocyte mean corpuscular hemoglobin (mass per erythrocyte) 30 pg 25-34 Automated erythrocyte mean corpuscular hemoglobin concentration measurement ( mass/volume) 32 g/dL 32-36 Automated erythrocyte distribution width ratio 15.5 % 10.0-14.5 Automated blood platelet count (count/volume) 293 10*3/uL 130-400 Automated blood platelet mean volume measurement 8.6 [foz_us] 7.4-10.4 Automated blood neutrophils/100 leukocytes 78 % 42-75 Automated blood lymphocytes/100 leukocytes 16 % 12-44 Blood monocytes/100 leukocytes 4 % 0-12 Automated blood eosinophils/100 leukocytes 2 % 0-10 Automated blood basophils/100 leukocytes 0 % 0-10 Blood neutrophils automated count (number/volume) 7.1 10*3 1.8-7.8 Blood lymphocytes automated count (number/volume) 1.4 10*3 1.0-4.0 Blood monocytes automated count (number/volume) 0.4 10*3 0.0-1.0 Automated eosinophil count 0.2 10*3/uL 0.0-0.3 Automated blood basophil count (count/volume) 0.0 10*3/uL 0.0-0.1 PT panel in platelet poor plasma by coagulation assay - 04/24/16 13:23 Prothrombin time (PT) in platelet poor plasma by coagulation assay 13.7 s 12.2-14.7 INR in platelet poor plasma or blood by coagulation assay 1.1 0.8-1.4 Activated partial thromboplastin time (aPTT) in platelet poor plasma bycoagulation assay - 04/24/16 13:23 Activated partial thromboplastin time (aPTT) in platelet poor plasma bycoagulation assay 25 s 24-35 Comprehensive metabolic panel - 04/24/16 13:23 Serum or plasma sodium measurement (moles/volume) 141 mmol/L 135-145 Serum or plasma potassium measurement (moles/volume) 3.9 mmol/L 3.6-5.0 Serum or plasma chloride measurement (moles/volume) 112 mmol/L 98-107 Carbon dioxide 26 mmol/L 21-32 Serum or plasma anion gap determination (moles/volume) 3 mmol/L 5-14 Serum or plasma urea nitrogen measurement (mass/volume) 13 mg/dL 7-18 Serum or plasma creatinine measurement (mass/volume) 0.54 mg/dL 0.60-1.30 Serum or plasma urea nitrogen/creatinine mass ratio 24 NRG Serum or plasma creatinine measurement with calculation of estimated glomerular filtration rate > NRG Serum or plasma glucose measurement (mass/volume) 96 mg/dL 70-105 Serum or plasma calcium measurement (mass/volume) 7.4 mg/dL 8.5-10.1 Serum or plasma total bilirubin measurement (mass/volume) 0.1 mg/dL 0.1-1.0 Serum or plasma alkaline phosphatase measurement (enzymatic activity/volume) 45 U/L 40-136 Serum or plasma aspartate aminotransferase measurement (enzymatic activity/ volume) 11 U/L 5-34 Serum or plasma alanine aminotransferase measurement (enzymatic activity/volume ) 9 U/L 0-55 Serum or plasma protein measurement (mass/volume) 4.4 g/dL 6.4-8.2 Serum or plasma albumin measurement (mass/volume) 2.6 g/dL 3.2-4.5 RED CELLS LEUKO REDUCED AS1 - 04/24/16 13:44 RED CELLS LEUKO REDUCED AS1 TRANSFUSED 04/24/16 1432 NRG Blood type T Indirect antibody screen panel - 04/24/16 13:44 ABO+Rh group OP NRG Transfusion band number [id number] NRG Blood group antibody screen NEGATIVE NRG Complete blood count (CBC) with automated white blood cell (WBC) differential - 04/28/16 11:43 Blood leukocytes automated count (number/volume) 10.9 10*3/uL 4.3-11.0 Blood erythrocytes automated count (number/volume) 3.36 10*6/uL 4.35-5.85 Venous blood hemoglobin measurement (mass/volume) 9.9 g/dL 11.5-16.0 Blood hematocrit (volume fraction) 30 % 35-52 Automated erythrocyte mean corpuscular volume 89 [foz_us] 80-99 Automated erythrocyte mean corpuscular hemoglobin (mass per erythrocyte) 29 pg 25-34 Automated erythrocyte mean corpuscular hemoglobin concentration measurement ( mass/volume) 33 g/dL 32-36 Automated erythrocyte distribution width ratio 17.9 % 10.0-14.5 Automated blood platelet count (count/volume) 395 10*3/uL 130-400 Automated blood platelet mean volume measurement 10.0 [foz_us] 7.4-10.4 Automated blood neutrophils/100 leukocytes 67 % 42-75 Automated blood lymphocytes/100 leukocytes 24 % 12-44 Blood monocytes/100 leukocytes 7 % 0-12 Automated blood eosinophils/100 leukocytes 1 % 0-10 Automated blood basophils/100 leukocytes 0 % 0-10 Blood neutrophils automated count (number/volume) 7.3 10*3 1.8-7.8 Blood lymphocytes automated count (number/volume) 2.7 10*3 1.0-4.0 Blood monocytes automated count (number/volume) 0.8 10*3 0.0-1.0 Automated eosinophil count 0.1 10*3/uL 0.0-0.3 Automated blood basophil count (count/volume) 0.0 10*3/uL 0.0-0.1 RED CELLS LEUKO REDUCED AS1 - 04/28/16 11:43 RED CELLS LEUKO REDUCED AS1 NOT AVAILABLE NRG Blood type T Indirect antibody screen panel - 04/28/16 11:43 ABO+Rh group OP [facility] Transfusion band number [id number] [facility] Blood group antibody screen NEGATIVE [facility] Comprehensive metabolic panel - 04/28/16 11:43 Serum or plasma sodium measurement (moles/volume) 140 mmol/L 135-145 Serum or plasma potassium measurement (moles/volume) 3.9 mmol/L 3.6-5.0 Serum or plasma chloride measurement (moles/volume) 105 mmol/L 98-107 Carbon dioxide 25 mmol/L 21-32 Serum or plasma anion gap determination (moles/volume) 10 mmol/L 5-14 Serum or plasma urea nitrogen measurement (mass/volume) 16 mg/dL 7-18 Serum or plasma creatinine measurement (mass/volume) 0.71 mg/dL 0.60-1.30 Serum or plasma urea nitrogen/creatinine mass ratio 23 NRG Serum or plasma creatinine measurement with calculation of estimated glomerular filtration rate > NRG Serum or plasma glucose measurement (mass/volume) 116 mg/dL 70-105 Serum or plasma calcium measurement (mass/volume) 8.1 mg/dL 8.5-10.1 Serum or plasma total bilirubin measurement (mass/volume) 0.3 mg/dL 0.1-1.0 Serum or plasma alkaline phosphatase measurement (enzymatic activity/volume) 61 U/L 40-136 Serum or plasma aspartate aminotransferase measurement (enzymatic activity/ volume) 14 U/L 5-34 Serum or plasma alanine aminotransferase measurement (enzymatic activity/volume ) 14 U/L 0-55 Serum or plasma protein measurement (mass/volume) 5.7 g/dL 6.4-8.2 Serum or plasma albumin measurement (mass/volume) 3.3 g/dL 3.2-4.5 Whole blood hemoglobin and hematocrit panel - 04/28/16 15:03 Venous blood hemoglobin measurement (mass/volume) 8.7 g/dL 11.5-16.0 Blood hematocrit (volume fraction) 27 % 35-52 Whole blood basic metabolic panel - 04/29/16 04:50 Serum or plasma sodium measurement (moles/volume) 142 mmol/L 135-145 Serum or plasma potassium measurement (moles/volume) 3.5 mmol/L 3.6-5.0 Serum or plasma chloride measurement (moles/volume) 112 mmol/L 98-107 Carbon dioxide 22 mmol/L 21-32 Serum or plasma anion gap determination (moles/volume) 8 mmol/L 5-14 Serum or plasma urea nitrogen measurement (mass/volume) 11 mg/dL 7-18 Serum or plasma creatinine measurement (mass/volume) 0.56 mg/dL 0.60-1.30 Serum or plasma urea nitrogen/creatinine mass ratio 20 NRG Serum or plasma creatinine measurement with calculation of estimated glomerular filtration rate > NRG Serum or plasma glucose measurement (mass/volume) 79 mg/dL 70-105 Serum or plasma calcium measurement (mass/volume) 8.0 mg/dL 8.5-10.1 Serum or plasma phosphate measurement (mass/volume) - 04/29/16 04:50 Serum or plasma phosphate measurement (mass/volume) 3.2 mg/dL 2.3-4.7 Magnesium - 04/29/16 04:50 Magnesium 2.0 mg/dL 1.8-2.4 Complete blood count (CBC) with automated white blood cell (WBC) differential - 04/29/16 04:50 Blood leukocytes automated count (number/volume) 9.2 10*3/uL 4.3-11.0 Blood erythrocytes automated count (number/volume) 2.87 10*6/uL 4.35-5.85 Venous blood hemoglobin measurement (mass/volume) 8.3 g/dL 11.5-16.0 Blood hematocrit (volume fraction) 26 % 35-52 Automated erythrocyte mean corpuscular volume 91 [foz_us] 80-99 Automated erythrocyte mean corpuscular hemoglobin (mass per erythrocyte) 29 pg 25-34 Automated erythrocyte mean corpuscular hemoglobin concentration measurement ( mass/volume) 32 g/dL 32-36 Automated erythrocyte distribution width ratio 18.1 % 10.0-14.5 Automated blood platelet count (count/volume) 279 10*3/uL 130-400 Automated blood platelet mean volume measurement 10.4 [foz_us] 7.4-10.4 Automated blood neutrophils/100 leukocytes 61 % 42-75 Automated blood lymphocytes/100 leukocytes 29 % 12-44 Blood monocytes/100 leukocytes 7 % 0-12 Automated blood eosinophils/100 leukocytes 2 % 0-10 Automated blood basophils/100 leukocytes 0 % 0-10 Blood neutrophils automated count (number/volume) 5.7 10*3 1.8-7.8 Blood lymphocytes automated count (number/volume) 2.7 10*3 1.0-4.0 Blood monocytes automated count (number/volume) 0.7 10*3 0.0-1.0 Automated eosinophil count 0.2 10*3/uL 0.0-0.3 Automated blood basophil count (count/volume) 0.0 10*3/uL 0.0-0.1 Whole blood hemoglobin and hematocrit panel - 04/30/16 10:35 Venous blood hemoglobin measurement (mass/volume) 8.5 g/dL 11.5-16.0 Blood hematocrit (volume fraction) 26 % 35-52 Complete blood count (CBC) with automated white blood cell (WBC) differential - 05/21/16 10:20 Blood leukocytes automated count (number/volume) 5.8 10*3/uL 4.3-11.0 Blood erythrocytes automated count (number/volume) 3.07 10*6/uL 4.35-5.85 Venous blood hemoglobin measurement (mass/volume) 8.2 g/dL 11.5-16.0 Blood hematocrit (volume fraction) 27 % 35-52 Automated erythrocyte mean corpuscular volume 86 [foz_us] 80-99 Automated erythrocyte mean corpuscular hemoglobin (mass per erythrocyte) 27 pg 25-34 Automated erythrocyte mean corpuscular hemoglobin concentration measurement ( mass/volume) 31 g/dL 32-36 Automated erythrocyte distribution width ratio 19.4 % 10.0-14.5 Automated blood platelet count (count/volume) 421 10*3/uL 130-400 Automated blood platelet mean volume measurement 8.6 [foz_us] 7.4-10.4 Automated blood neutrophils/100 leukocytes 62 % 42-75 Automated blood lymphocytes/100 leukocytes 27 % 12-44 Blood monocytes/100 leukocytes 9 % 0-12 Automated blood eosinophils/100 leukocytes 2 % 0-10 Automated blood basophils/100 leukocytes 1 % 0-10 Blood neutrophils automated count (number/volume) 3.5 10*3 1.8-7.8 Blood lymphocytes automated count (number/volume) 1.6 10*3 1.0-4.0 Blood monocytes automated count (number/volume) 0.5 10*3 0.0-1.0 Automated eosinophil count 0.1 10*3/uL 0.0-0.3 Automated blood basophil count (count/volume) 0.0 10*3/uL 0.0-0.1 Comprehensive metabolic panel - 05/21/16 10:20 Serum or plasma sodium measurement (moles/volume) 137 mmol/L 135-145 Serum or plasma potassium measurement (moles/volume) 4.4 mmol/L 3.6-5.0 Serum or plasma chloride measurement (moles/volume) 105 mmol/L 98-107 Carbon dioxide 27 mmol/L 21-32 Serum or plasma anion gap determination (moles/volume) 5 mmol/L 5-14 Serum or plasma urea nitrogen measurement (mass/volume) 7 mg/dL 7-18 Serum or plasma creatinine measurement (mass/volume) 0.68 mg/dL 0.60-1.30 Serum or plasma urea nitrogen/creatinine mass ratio 10 NRG Serum or plasma creatinine measurement with calculation of estimated glomerular filtration rate > NRG Serum or plasma glucose measurement (mass/volume) 180 mg/dL 70-105 Serum or plasma calcium measurement (mass/volume) 8.0 mg/dL 8.5-10.1 Serum or plasma total bilirubin measurement (mass/volume) 0.1 mg/dL 0.1-1.0 Serum or plasma alkaline phosphatase measurement (enzymatic activity/volume) 56 U/L 40-136 Serum or plasma aspartate aminotransferase measurement (enzymatic activity/ volume) 12 U/L 5-34 Serum or plasma alanine aminotransferase measurement (enzymatic activity/volume ) < U/L 0-55 Serum or plasma protein measurement (mass/volume) 5.4 g/dL 6.4-8.2 Serum or plasma albumin measurement (mass/volume) 3.0 g/dL 3.2-4.5 Complete blood count (CBC) with automated white blood cell (WBC) differential - 05/24/16 10:00 Blood leukocytes automated count (number/volume) 16.6 10*3/uL 4.3-11.0 Blood erythrocytes automated count (number/volume) 3.51 10*6/uL 4.35-5.85 Venous blood hemoglobin measurement (mass/volume) 9.4 g/dL 11.5-16.0 Blood hematocrit (volume fraction) 30 % 35-52 Automated erythrocyte mean corpuscular volume 85 [foz_us] 80-99 Automated erythrocyte mean corpuscular hemoglobin (mass per erythrocyte) 27 pg 25-34 Automated erythrocyte mean corpuscular hemoglobin concentration measurement ( mass/volume) 32 g/dL 32-36 Automated erythrocyte distribution width ratio 19.5 % 10.0-14.5 Automated blood platelet count (count/volume) 505 10*3/uL 130-400 Automated blood platelet mean volume measurement 8.9 [foz_us] 7.4-10.4 Automated blood neutrophils/100 leukocytes 93 % 42-75 Automated blood lymphocytes/100 leukocytes 3 % 12-44 Blood monocytes/100 leukocytes 5 % 0-12 Automated blood eosinophils/100 leukocytes 0 % 0-10 Automated blood basophils/100 leukocytes 0 % 0-10 Blood neutrophils automated count (number/volume) 15.5 10*3 1.8-7.8 Blood lymphocytes automated count (number/volume) 0.4 10*3 1.0-4.0 Blood monocytes automated count (number/volume) 0.7 10*3 0.0-1.0 Automated eosinophil count 0.0 10*3/uL 0.0-0.3 Automated blood basophil count (count/volume) 0.0 10*3/uL 0.0-0.1 Comprehensive metabolic panel - 05/24/16 10:00 Serum or plasma sodium measurement (moles/volume) 137 mmol/L 135-145 Serum or plasma potassium measurement (moles/volume) 3.9 mmol/L 3.6-5.0 Serum or plasma chloride measurement (moles/volume) 102 mmol/L 98-107 Carbon dioxide 25 mmol/L 21-32 Serum or plasma anion gap determination (moles/volume) 10 mmol/L 5-14 Serum or plasma urea nitrogen measurement (mass/volume) 5 mg/dL 7-18 Serum or plasma creatinine measurement (mass/volume) 0.63 mg/dL 0.60-1.30 Serum or plasma urea nitrogen/creatinine mass ratio 8 NRG Serum or plasma creatinine measurement with calculation of estimated glomerular filtration rate > NRG Serum or plasma glucose measurement (mass/volume) 89 mg/dL 70-105 Serum or plasma calcium measurement (mass/volume) 8.5 mg/dL 8.5-10.1 Serum or plasma total bilirubin measurement (mass/volume) 0.5 mg/dL 0.1-1.0 Serum or plasma alkaline phosphatase measurement (enzymatic activity/volume) 72 U/L 40-136 Serum or plasma aspartate aminotransferase measurement (enzymatic activity/ volume) 19 U/L 5-34 Serum or plasma alanine aminotransferase measurement (enzymatic activity/volume ) 12 U/L 0-55 Serum or plasma protein measurement (mass/volume) 6.0 g/dL 6.4-8.2 Serum or plasma albumin measurement (mass/volume) 3.2 g/dL 3.2-4.5 Lipase - 05/24/16 10:00 Lipase 90 U/L 8-78 Blood manual differential performed detection - 05/24/16 10:00 Blood monocytes/100 leukocytes 4 % NRG Manual blood segmented neutrophils/100 leukocytes 92 % NRG Blood band neutrophils/100 leukocytes 0 % NRG Manual blood lymphocytes/100 leukocytes 4 % NRG Manual eosinophils/100 leukocytes in nose 0 % NRG Manual blood basophils/100 leukocytes 0 % NRG Blood anisocytosis detection by light microscopy MODERATE NRG Blood hypochromia detection by light microscopy MODERATE NRG Complete urinalysis with reflex to culture - 05/24/16 11:15 Urine color determination YELLOW NRG Urine clarity determination CLEAR NRG Urine pH measurement by test strip 8 5-9 Specific gravity of urine by test strip 1.010 1.016- 1.022 Urine protein assay by test strip, semi-quantitative 1+ NEGATIVE Urine glucose detection by automated test strip NEGATIVE NEGATIVE Erythrocytes detection in urine sediment by light microscopy NEGATIVE NEGATIVE Urine ketones detection by automated test strip 3+ NEGATIVE Urine nitrite detection by test strip POSITIVE NEGATIVE Urine total bilirubin detection by test strip NEGATIVE NEGATIVE Urine urobilinogen measurement by automated test strip (mass/volume) NORMAL NORMAL Urine leukocyte esterase detection by dipstick NEGATIVE NEGATIVE Automated urine sediment erythrocyte count by microscopy (number/high power field) NONE NRG Automated urine sediment leukocyte count by microscopy (number/high power field ) [HPF] NRG Bacteria detection in urine sediment by light microscopy LARGE NRG Squamous epithelial cells detection in urine sediment by light microscopy 5-10 NRG Crystals detection in urine sediment by light microscopy NONE NRG Casts detection in urine sediment by light microscopy NONE NRG Mucus detection in urine sediment by light microscopy NEGATIVE NRG Complete urinalysis with reflex to culture YES NRG Bacterial urine culture - 05/24/16 11:15 Bacterial urine culture [id number] NRG COLONY COUNT >100,000/ML NRG FTX;REPORTABLE SENSITIVITY REPORTED 05/26/16 11:50 NRG URINE CULTURE RESULTS <10,000/ML NRG FREE TEXT ENTRY 2 PLUS MIXED GRAM POSITIVES NRG FREE TEXT ENTRY 3 <10,000/ML NRG Bacterial susceptibility panel - 05/24/16 11:15 Gentamicin susceptibility test by minimum inhibitory concentration > = NRG Trimethoprim/sulfamethoxazole susceptibility test by minimum inhibitoryconcentration >= NRG Ampicillin susceptibility test by minimum inhibitory concentration > = NRG Tobramycin susceptibility test by minimum inhibitory concentration 8 NRG Cefazolin susceptibility test by minimum inhibitory concentration < = NRG Ceftriaxone susceptibility test by minimum inhibitory concentration <= NRG Ampicillin/sulbactam susceptibility test by minimum inhibitory concentration 16 NRG Piperacillin/tazobactam susceptibility test by minimum inhibitory concentration <= NRG Ciprofloxacin susceptibility test by minimum inhibitory concentration >= NRG Meropenem susceptibility test by minimum inhibitory concentration < = NRG Nitrofurantoin susceptibility test by minimum inhibitory concentration <= NRG Aztreonam susceptibility test by minimum inhibitory concentration < = NRG Extended spectrum beta lactamase (ESBL) producing bacteria susceptibility test by minimum inhibitory concentration - NR Blood lactic acid measurement (moles/volume) - 05/24/16 11:30 Blood lactic acid measurement (moles/volume) 1.2 mmol/L 0.5-2.0 Bacterial blood culture - 05/24/16 11:30 Bacterial blood culture NG NRG Bacterial blood culture - 05/24/16 11:47 Bacterial blood culture NG NRG Complete blood count (CBC) with automated white blood cell (WBC) differential - 06/22/16 14:24 Blood leukocytes automated count (number/volume) 14.5 10*3/uL 4.3-11.0 Blood erythrocytes automated count (number/volume) 3.79 10*6/uL 4.35-5.85 Venous blood hemoglobin measurement (mass/volume) 9.8 g/dL 11.5-16.0 Blood hematocrit (volume fraction) 31 % 35-52 Automated erythrocyte mean corpuscular volume 83 [foz_us] 80-99 Automated erythrocyte mean corpuscular hemoglobin (mass per erythrocyte) 26 pg 25-34 Automated erythrocyte mean corpuscular hemoglobin concentration measurement ( mass/volume) 31 g/dL 32-36 Automated erythrocyte distribution width ratio 20.4 % 10.0-14.5 Automated blood platelet count (count/volume) 793 10*3/uL 130-400 Automated blood platelet mean volume measurement 8.6 [foz_us] 7.4-10.4 Automated blood neutrophils/100 leukocytes 88 % 42-75 Automated blood lymphocytes/100 leukocytes 7 % 12-44 Blood monocytes/100 leukocytes 4 % 0-12 Automated blood eosinophils/100 leukocytes 1 % 0-10 Automated blood basophils/100 leukocytes 0 % 0-10 Blood neutrophils automated count (number/volume) 12.7 10*3 1.8-7.8 Blood lymphocytes automated count (number/volume) 1.1 10*3 1.0-4.0 Blood monocytes automated count (number/volume) 0.6 10*3 0.0-1.0 Automated eosinophil count 0.1 10*3/uL 0.0-0.3 Automated blood basophil count (count/volume) 0.0 10*3/uL 0.0-0.1 Comprehensive metabolic panel - 06/22/16 14:24 Serum or plasma sodium measurement (moles/volume) 140 mmol/L 135-145 Serum or plasma potassium measurement (moles/volume) 4.7 mmol/L 3.6-5.0 Serum or plasma chloride measurement (moles/volume) 102 mmol/L 98-107 Carbon dioxide 26 mmol/L 21-32 Serum or plasma anion gap determination (moles/volume) 12 mmol/L 5-14 Serum or plasma urea nitrogen measurement (mass/volume) 6 mg/dL 7-18 Serum or plasma creatinine measurement (mass/volume) 0.72 mg/dL 0.60-1.30 Serum or plasma urea nitrogen/creatinine mass ratio 8 NRG Serum or plasma creatinine measurement with calculation of estimated glomerular filtration rate > NRG Serum or plasma glucose measurement (mass/volume) 96 mg/dL 70-105 Serum or plasma calcium measurement (mass/volume) 9.6 mg/dL 8.5-10.1 Serum or plasma total bilirubin measurement (mass/volume) 0.3 mg/dL 0.1-1.0 Serum or plasma alkaline phosphatase measurement (enzymatic activity/volume) 94 U/L 40-136 Serum or plasma aspartate aminotransferase measurement (enzymatic activity/ volume) 13 U/L 5-34 Serum or plasma alanine aminotransferase measurement (enzymatic activity/volume ) 9 U/L 0-55 Serum or plasma protein measurement (mass/volume) 7.6 g/dL 6.4-8.2 Serum or plasma albumin measurement (mass/volume) 3.4 g/dL 3.2-4.5 Lipase - 06/22/16 14:24 Lipase 33 U/L 8-78 Blood manual differential performed detection - 06/22/16 14:24 Blood monocytes/100 leukocytes 1 % NRG Manual blood segmented neutrophils/100 leukocytes 93 % NRG Blood band neutrophils/100 leukocytes 0 % NRG Manual blood lymphocytes/100 leukocytes 5 % NRG Manual eosinophils/100 leukocytes in nose 0 % NRG Manual blood basophils/100 leukocytes 1 % NRG Blood anisocytosis detection by light microscopy MARKED NRG Blood hypochromia detection by light microscopy MODERATE NRG Blood target cells detection by light microscopy MODERATE NRG Complete urinalysis with reflex to culture - 06/22/16 14:25 Urine color determination YELLOW NRG Urine clarity determination CLEAR NRG Urine pH measurement by test strip 7 5-9 Specific gravity of urine by test strip 1.005 1.016- 1.022 Urine protein assay by test strip, semi-quantitative 1+ NEGATIVE Urine glucose detection by automated test strip NEGATIVE NEGATIVE Erythrocytes detection in urine sediment by light microscopy 1+ NEGATIVE Urine ketones detection by automated test strip NEGATIVE NEGATIVE Urine nitrite detection by test strip NEGATIVE NEGATIVE Urine total bilirubin detection by test strip NEGATIVE NEGATIVE Urine urobilinogen measurement by automated test strip (mass/volume) NORMAL NORMAL Urine leukocyte esterase detection by dipstick NEGATIVE NEGATIVE Automated urine sediment erythrocyte count by microscopy (number/high power field) RARE NRG Automated urine sediment leukocyte count by microscopy (number/high power field ) NONE NRG Bacteria detection in urine sediment by light microscopy NEGATIVE NRG Squamous epithelial cells detection in urine sediment by light microscopy 2-5 NRG Crystals detection in urine sediment by light microscopy NONE NRG Casts detection in urine sediment by light microscopy NONE NRG Mucus detection in urine sediment by light microscopy NEGATIVE NRG Complete urinalysis with reflex to culture NO NRG Gram stain microscopy - 06/22/16 15:00 GRAM STAIN RESULT NO WBC'S OR BACTERIA OBSERVED NRG Bacteria identification in wound by culture - 06/22/16 15:00 Bacteria identification in wound by culture [id number] NR FREE TEXT EXTERNAL SENSTIVITY REPORTED 06/24 07:40 NRG QUANTITY OF GROWTH Scant Growth NRG MRSA AGAR MRSA isolated (Screening test for MRSA is positive) NR CALL POSITIVES (F1 HELP) CALLED TO SUNSHINE IN ER 06/24 09:40 NR Bacterial susceptibility panel - 06/22/16 15:00 Oxacillin susceptibility test by minimum inhibitory concentration > = NRG Gentamicin susceptibility test by minimum inhibitory concentration < = NRG Clindamycin susceptibility test by minimum inhibitory concentration >= NRG Erythromycin susceptibility test by minimum inhibitory concentration >= NRG Trimethoprim/sulfamethoxazole susceptibility test by minimum inhibitoryconcentration <= NRG Vancomycin susceptibility test by minimum inhibitory concentration < = NRG Levofloxacin susceptibility test by minimum inhibitory concentration 4 NRG Rifampin susceptibility test by minimum inhibitory concentration <= NRG Tetracycline susceptibility test by minimum inhibitory concentration <= NRG Ciprofloxacin susceptibility test by minimum inhibitory concentration R NRG Complete blood count (CBC) with automated white blood cell (WBC) differential - 06/23/16 05:08 Blood leukocytes automated count (number/volume) 10.2 10*3/uL 4.3-11.0 Blood erythrocytes automated count (number/volume) 3.39 10*6/uL 4.35-5.85 Venous blood hemoglobin measurement (mass/volume) 8.6 g/dL 11.5-16.0 Blood hematocrit (volume fraction) 28 % 35-52 Automated erythrocyte mean corpuscular volume 82 [foz_us] 80-99 Automated erythrocyte mean corpuscular hemoglobin (mass per erythrocyte) 25 pg 25-34 Automated erythrocyte mean corpuscular hemoglobin concentration measurement ( mass/volume) 31 g/dL 32-36 Automated erythrocyte distribution width ratio 20.2 % 10.0-14.5 Automated blood platelet count (count/volume) 755 10*3/uL 130-400 Automated blood platelet mean volume measurement 8.5 [foz_us] 7.4-10.4 Automated blood neutrophils/100 leukocytes 76 % 42-75 Automated blood lymphocytes/100 leukocytes 13 % 12-44 Blood monocytes/100 leukocytes 8 % 0-12 Automated blood eosinophils/100 leukocytes 2 % 0-10 Automated blood basophils/100 leukocytes 0 % 0-10 Blood neutrophils automated count (number/volume) 7.8 10*3 1.8-7.8 Blood lymphocytes automated count (number/volume) 1.4 10*3 1.0-4.0 Blood monocytes automated count (number/volume) 0.8 10*3 0.0-1.0 Automated eosinophil count 0.2 10*3/uL 0.0-0.3 Automated blood basophil count (count/volume) 0.0 10*3/uL 0.0-0.1 Comprehensive metabolic panel - 06/23/16 05:08 Serum or plasma sodium measurement (moles/volume) 139 mmol/L 135-145 Serum or plasma potassium measurement (moles/volume) 3.7 mmol/L 3.6-5.0 Serum or plasma chloride measurement (moles/volume) 102 mmol/L 98-107 Carbon dioxide 26 mmol/L 21-32 Serum or plasma anion gap determination (moles/volume) 11 mmol/L 5-14 Serum or plasma urea nitrogen measurement (mass/volume) 5 mg/dL 7-18 Serum or plasma creatinine measurement (mass/volume) 0.65 mg/dL 0.60-1.30 Serum or plasma urea nitrogen/creatinine mass ratio 8 NRG Serum or plasma creatinine measurement with calculation of estimated glomerular filtration rate > NRG Serum or plasma glucose measurement (mass/volume) 120 mg/dL 70-105 Serum or plasma calcium measurement (mass/volume) 9.0 mg/dL 8.5-10.1 Serum or plasma total bilirubin measurement (mass/volume) 0.3 mg/dL 0.1-1.0 Serum or plasma alkaline phosphatase measurement (enzymatic activity/volume) 81 U/L 40-136 Serum or plasma aspartate aminotransferase measurement (enzymatic activity/ volume) 15 U/L 5-34 Serum or plasma alanine aminotransferase measurement (enzymatic activity/volume ) 10 U/L 0-55 Serum or plasma protein measurement (mass/volume) 6.7 g/dL 6.4-8.2 Serum or plasma albumin measurement (mass/volume) 3.1 g/dL 3.2-4.5 Complete blood count (CBC) with automated white blood cell (WBC) differential - 08/05/16 14:25 Blood leukocytes automated count (number/volume) 4.4 10*3/uL 4.3-11.0 Blood erythrocytes automated count (number/volume) 4.53 10*6/uL 4.35-5.85 Venous blood hemoglobin measurement (mass/volume) 12.9 g/dL 11.5-16.0 Blood hematocrit (volume fraction) 40 % 35-52 Automated erythrocyte mean corpuscular volume 89 [foz_us] 80-99 Automated erythrocyte mean corpuscular hemoglobin (mass per erythrocyte) 29 pg 25-34 Automated erythrocyte mean corpuscular hemoglobin concentration measurement ( mass/volume) 32 g/dL 32-36 Automated erythrocyte distribution width ratio 19.9 % 10.0-14.5 Automated blood platelet count (count/volume) 313 10*3/uL 130-400 Automated blood platelet mean volume measurement 9.9 [foz_us] 7.4-10.4 Automated blood neutrophils/100 leukocytes 63 % 42-75 Automated blood lymphocytes/100 leukocytes 32 % 12-44 Blood monocytes/100 leukocytes 5 % 0-12 Automated blood eosinophils/100 leukocytes 0 % 0-10 Automated blood basophils/100 leukocytes 0 % 0-10 Blood neutrophils automated count (number/volume) 2.7 10*3 1.8-7.8 Blood lymphocytes automated count (number/volume) 1.4 10*3 1.0-4.0 Blood monocytes automated count (number/volume) 0.2 10*3 0.0-1.0 Automated eosinophil count 0.0 10*3/uL 0.0-0.3 Automated blood basophil count (count/volume) 0.0 10*3/uL 0.0-0.1 Encounters ACCT No. Visit Date/Time Discharge Status Pt. Type Provider Facility Loc./Unit Complaint [id number] 10/03/2014 11:20:00 10/03/2014 23:59:59 CLS Outpatient PEYTON VALENCIAAUBRIECece Hess [id number] 06/27/2014 16:12:00 06/27/2014 23:59:59 CLS Outpatient WHITLEY ROCHE APRN [id number] 05/10/2014 15:51:00 05/10/2014 23:59:59 CLS Outpatient ZAC YEUNG APRN [id number] 04/06/2014 08:50:00 04/06/2014 23:59:59 CLS Outpatient ZAC YEUNG APRN [id number] 03/09/2014 15:13:00 03/09/2014 23:59:59 CLS Outpatient ZAC YEUNG APRN [id number] 10/13/2013 00:00:00 10/13/2013 23:59:59 CLS Outpatient TAMMY SIMS DDS [id number] 08/05/2016 13:36:00 08/05/2016 15:35:00 DIS Emergency SONNY KRISHNAN DO Via [facility] ER FEVER COUGH/CHEST CONGESTION EARACHE ABD PAIN [id number] 06/22/2016 20:10:00 06/23/2016 14:10:00 DIS Inpatient DELPHINE MCCARTHY MD Via [facility] 4TH ABDOMINAL PAIN, LEUKOCYTOSIS, FEVER [id number] 05/24/2016 09:56:00 05/24/2016 12:55:00 DIS Emergency YONIS GRAVES MD [facility] ER L SIDED ABD PAIN [id number] 05/21/2016 10:11:00 05/21/2016 23:59:59 CLS Outpatient GARRY LOMELI MD [facility] LAB CMP [id number] 04/28/2016 14:21:00 04/30/2016 13:55:00 DIS Inpatient JENNYFER PELAYO DO [facility] 4TH UGI BLEED/HYPOTENSION [id number] 04/24/2016 13:12:00 04/24/2016 14:55:00 DIS Emergency CROW WHITE MD [facility] ER ABD PAIN/VOMITING BLOOD [id number] 04/23/2016 13:55:00 04/23/2016 23:59:59 CLS Outpatient VIDA CHANCE DO [facility] LAB NAUSEA AND VOMITING [id number] 04/06/2015 12:03:00 04/06/2015 14:18:00 DIS Emergency MARCELO MONACO [facility] ER DENTAL PAIN [id number] 10/17/2014 13:34:00 10/17/2014 16:14:00 DIS Emergency YONIS GRAVES MD [facility] ER [id number] 07/14/2014 08:00:00 07/14/2014 23:59:59 CLS Preadmit MEGAN AREVALO MD [facility] SDC DYSPHASIA [id number] 07/13/2014 07:15:00 07/13/2014 23:59:59 CLS Outpatient MEGAN AREVALO MD [facility] PREOP DYSPHASIA [id number] 07/09/2014 21:22:00 07/09/2014 23:36:00 DIS Emergency SONNY KRISHNAN DO [facility] ER DIZZINESS, DISCOLORED STOOLS [id number] 07/08/2014 16:08:00 07/08/2014 19:07:00 DIS Emergency CINDY DONOHUE, CROW Zhao [facility] ER DISCOLORED URINE,ABD PAIN [id number] 06/09/2014 07:00:00 06/09/2014 09:50:00 DIS [facility] [id number] 06/08/2014 13:02:00 06/08/2014 23:59:59 CLS Outpatient MEGAN AREVALO MD [facility] PREOP STRICTURE [id number] 05/26/2014 07:01:00 05/26/2014 09:50:00 DIS Outpatient MEGAN AREVALO MD [facility] DYSPHASIA [id number] 05/25/2014 07:18:00 05/25/2014 23:59:59 CLS Outpatient MEGAN AREVALO MD [facility] PREOP DYSPAHSIA [id number] 05/12/2014 07:59:00 05/12/2014 10:35:00 DIS Outpatient MEGAN AREVALO MD [facility] SDC STRICTURE [id number] 05/11/2014 07:39:00 05/11/2014 23:59:59 CLS Outpatient MEGAN AREVALO MD [facility] PREOP STRICTURE [id number] 05/05/2014 06:56:00 05/05/2014 23:59:59 CLS Outpatient MEGAN AREVALO MD [facility] SDC STRICTURE [id number] 05/04/2014 07:54:00 05/04/2014 23:59:59 CLS Outpatient MEGAN AREVALO MD [facility] PREOP STRICTURE [id number] 04/28/2014 07:01:00 04/28/2014 23:59:59 CLS Outpatient MEGAN AREVALO MD [facility] SDC STRICTURE [id number] 04/27/2014 07:24:00 04/27/2014 23:59:59 CLS Outpatient MEGAN AREVALO MD [facility] PREOP STRICTURE [id number] 04/21/2014 06:36:00 04/21/2014 08:55:00 DIS Outpatient MEGAN AREVALO MD [facility] DYSPHASA; ESOPHAGEAL STRICTURE [id number] 04/20/2014 07:27:00 04/20/2014 23:59:59 CLS Outpatient MEGAN AREVALO MD [facility] PREOP DYSPHASA; ESOPHAGEAL STRICTURE [id number] 04/14/2014 07:13:00 04/14/2014 10:50:00 DIS Outpatient MEGAN AREVALO MD [facility] DYSPHAGA; ESOPHAGEAL STRICTURE [id number] 04/07/2014 07:05:00 04/07/2014 09:25:00 DIS Outpatient MEGAN AREVALO MD [facility] DYSPHAGA; ESOPHAGEAL STRICTURE [id number] 03/31/2014 06:43:00 03/31/2014 09:20:00 DIS Outpatient MEGAN AREVALO MD [facility] STRICTURE [id number] 03/30/2014 07:22:00 03/30/2014 23:59:59 CLS Outpatient MEGAN AREVALO MD [facility] PREOP STRICTURE [id number] 03/17/2014 06:23:00 03/17/2014 23:59:59 CLS Outpatient MEGAN AREAVLO MD [facility] PRE-PYLORIC ULCER [id number] 03/16/2014 07:46:00 03/16/2014 23:59:59 CLS Outpatient MEGAN AREVALO MD [facility] PREOP PRE-PYLORIC ULCER [id number] 02/24/2014 07:24:00 02/24/2014 09:20:00 DIS Outpatient MEGAN AREVALO MD [facility] PERIPYLORIC ANTRAL ULCER [id number] 02/23/2014 07:38:00 02/23/2014 23:59:59 CLS Outpatient MEGAN AREVALO MD [facility] PREOP PERIPYLORIC ANTRAL ULCER [id number] 01/13/2014 06:41:00 01/13/2014 10:20:00 DIS Outpatient MEGAN AREVALO MD [facility] GERD [id number] 01/12/2014 07:35:00 01/12/2014 23:59:59 CLS Outpatient MEGAN AREVALO MD [facility] PREOP GERD [id number] 12/17/2013 12:44:00 12/18/2013 11:57:00 DIS Outpatient MEGAN AREVALO MD [facility] SDC ABDOMINAL PAIN NAUSEA VOMITING UTI [id number] 10/20/2013 17:09:00 10/20/2013 18:45:00 DIS Emergency PÉREZ HORVATH MD [facility] ER ABD PAIN [id number] 09/26/2013 14:57:00 09/26/2013 17:47:00 DIS Emergency PÉREZ HORVATH MD [facility] ER NAUSEA VOMITING [id number] 03/20/2013 12:48:00 03/20/2013 15:50:00 DIS Emergency RAN MERRITT APRN [facility] ER COUGH CONGESTION [id number] 10/06/2015 14:07:00 Document Registration [id number] 07/20/2014 13:33:00 Document Registration [id number] 02/19/2012 09:56:00 Document Registration [id number] 02/18/2012 10:41:00 Document Registration [id number] 02/07/2012 08:38:00 Document Registration [id number] 07/24/2011 03:13:00 Document Registration [id number] 11/08/2010 09:10:00 Document Registration [id number] 10/10/2010 10:20:00 Document Registration [id number] 09/05/2010 10:15:00 Document Registration [id number] 08/23/2010 08:34:00 Document Registration [id number] 08/15/2010 15:18:00 Document Registration
--- NOTE | 2017-07-14 16:14 | ED Headache ---
General Chief Complaint: Head/Cervical Problems Stated Complaint: HEADACHE Nursing Triage Note: ARRIVED VIA AMB TO ROOM 07. COMPLAINS OF HEADACHE X2 HOURS NOT RELIEVED BY EXEDREN, SINUS MED, AND HYDROCODONE. HX OF HEADACHES. Nursing Sepsis Screen: No Definite Risk (CHARO LEO MEDICAL STUDENT) History of Present Illness Time seen by provider: 16:09 Initial Comments Pt is a 51 yo female with recent PMH of Migraines who presents to the ED today c /o a 7/10 R sided HERNANDEZ onset approx ~ 1030 this AM. Pt states that it is sharp and radiates from the back of her head to her R eye and she had to leave work because of it. Took some "sinus medication" and Excedrin without relief. Pt reports some dizziness and nausea but denies any aura prior to onset, v/d, photophobia, phonophobia, vision changes, or any other associated sx. Pt states that she believes she had a sinus infection ~ 2 weeks ago and her doctor gave her Amoxicillin that she took for 10 days and just finished up 5 days ago. Timing/Duration: 4-6 hours Severity/Quality: moderate Location: temporal (R), occipital (R) (CHARO LEO MEDICAL STUDENT) Allergies and Home Medications Allergies Coded Allergies: morphine (Verified Allergy, Severe, ITCHING & FLUSHING, PT HAS RECEIVED HYDROCODONE IN THE PAST, 06/23/16) Influenza Virus Vaccines (Unverified Allergy, Unknown, 06/23/16) metronidazole (Verified Allergy, Unknown, 04/28/16) Sulfa (Sulfonamide Antibiotics) (Verified Adverse Reaction, Unknown, ) Home Medications Albuterol Sulfate 8.5 Gm Hfa.aer.ad, 1-2 PUFF IH Q4H PRN for cough/wheeze/SOA, # 1 Ref 0 Prescribed by: SONNY KRISHNAN on 08/05/16 1529 Calcium Carbonate/Vitamin D3 1 Each Tablet, 1 TAB PO BID, (Reported) Dicyclomine HCl 20 Mg Tablet, 20 MG PO QID, #120 Prescribed by: SANGITA ZAMORA on 06/23/16 1057 Estrogen,Sylvie/Me-Testosterone 1 Each Tablet, 2 TAB PO DAILY, (Reported) LAST FILLED 03/20/16 #60 Ferrous Sulfate 325 Mg Tablet, 325 MG PO BID, (Reported) Gabapentin 300 Mg Capsule, 600 MG PO TID, (Reported) TAKES 2 (300 MG) CAPSULES Hydrocodone/Chlorphen P-Stirex 480 Ml Nyasia.er.12h, 5 ML PO Q12H PRN for cough/ congestion, #120 Ref 0 Prescribed by: SONNY KRISHNAN on 08/05/16 1529 Norgestimate-Ethinyl Estradiol 1 Each Tablet, 1 TAB PO DAILY, (Reported) TK 1 T PO D CONTINUOUSLY OF ACTIVE PILLS ONLY OR UTD / LAST FILLED 01/19/16 # 84 Pantoprazole Sodium 40 Mg Tablet.dr, 40 MG PO BID, (Reported) [Vitamin B 12] , (Reported) Constitutional: No chills, No diaphoresis, other (Headache) Eyes: No Symptoms Reported, Denies Blurred Vision, Denies Photophobia, Denies Tunnel Vision, Denies Vision Changes Ears, Nose, Mouth, Throat: denies ear pain, denies ear discharge, denies epistaxis, denies mouth swelling, denies throat pain Respiratory: no symptoms reported, No cough, No dyspnea on exertion, No short of breath Cardiovascular: no symptoms reported, No chest pain, No palpitations Gastrointestinal: No abdominal pain, No constipation, No diarrhea, nausea, No vomiting Genitourinary: no symptoms reported, No dysuria, No frequency Musculoskeletal: no symptoms reported, No joint pain, No joint swelling, No neck pain Skin: no symptoms reported, No change in color, No change in hair/nails, No dryness Psychiatric/Neurological: No Symptoms Reported, Denies Anxiety, Denies Depressed ([employer]O [employer]O MEDICAL STUDENT) All Other Systems Reviewed Negative Unless Noted: Yes (Negative excepted noted.) (CHARO LEO MEDICAL STUDENT) Past Synbqjv-Wjawgz-Mbwepw Hx Patient Social History Alcohol Use: Denies Use Recreational Drug Use: No Smoking Status: Never a Smoker Former Smoker, Quit: Apr 24, 2016 Recent Foreign Travel: No Contact w/Someone Who Travel: No Recent Infectious Disease Expo: No Recent Hopitalizations: Yes (GI BLEED) (CHARO LEO MEDICAL STUDENT) Immunizations Up To Date Tetanus Booster (TDap): More than 5yrs (CHARO LEO MEDICAL STUDENT) Seasonal Allergies Seasonal Allergies: Yes (CHARO [employer]O MEDICAL STUDENT) Surgeries History of Surgeries: Yes (partial gastrectomy) Surgeries: Abdominal, Hysterectomy ([employer]O LEO MEDICAL STUDENT) Respiratory History of Respiratory Disorde: No (CHARO [employer]O MEDICAL STUDENT) Cardiovascular History of Cardiac Disorders: No (CHARO LEO MEDICAL STUDENT) Neurological History of Neurological Disord: Yes Neurological Disorders: Headaches /Migraines (CHARO LEO MEDICAL STUDENT) Reproductive System Hx 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: No Sexually Transmitted Disease: No HIV/AIDS: No 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, Ovarian Cyst [employer] History: Hysterectomy (CHARO LEO MEDICAL STUDENT) Gastrointestinal History of Gastrointestinal Di: Yes Gastrointestinal Disorders: Gastrointestinal Bleed, Obstructive Bowel, Ulcer ([employer] MEDICAL STUDENT) Musculoskeletal History of Musculoskeletal Dis: Yes Musculoskeletal Disorders: Scoliosis ([employer]O MEDICAL STUDENT) Endocrine History of Endocrine Disorders: Yes (hypoglycemia) ([employer]O [employer]O MEDICAL STUDENT) HEENT Loss of Vision: Denies Hearing Impairment: Denies ([employer] MEDICAL STUDENT) Cancer History of Cancer: No ([employer]O MEDICAL STUDENT) Psychosocial History of Psychiatric Problem: No ([employer] MEDICAL STUDENT) Integumentary History of Skin or Integumenta: No (CHARO [employer]O MEDICAL STUDENT) Blood Transfusions History of Blood Disorders: Yes (anemia) Adverse Reaction to a Blood Tr: No ([employer]O [employer]O MEDICAL STUDENT) Family Medical History Significant Family History: No Pertinent Family Hx Family Medial History: Cancer of colon GRANDMOTHER Family history: Diabetes mellitus 19 FATHER Family history: Hypertension 19 MOTHER Stroke 19 MOTHER (CHARO LEO MEDICAL STUDENT) Family Medial History: Cancer of colon GRANDMOTHER Family history: Diabetes mellitus 19 FATHER Family history: Hypertension 19 MOTHER Stroke 19 MOTHER (RAN MERRITT APRN) Physical Exam Vital Signs Vital Sign - Last 12Hours 07/14/17 15:46 Temp 98.0 Pulse 91 Resp 18 B/P (MAP) 141/88 (105) Pulse Ox 97 (RAN MERRITT APRN) Vital Signs Capillary Refill : Less Than 3 Seconds ([employer] MEDICAL STUDENT) General Appearance: WD/WN, no apparent distress HEENT: PERRL/EOMI, TMs normal, pharynx normal, No tonsillar exudate, other (Nl fundiscopice exam, no papilledema, R eye tearing) Neck: non-tender, full range of motion, supple, normal inspection, No carotid bruit, No thyromegaly, other (No meningeal signs) Cardiovascular: normal peripheral pulses, regular rate, rhythm, no edema, no murmur Respiratory: chest non-tender, lungs clear, normal breath sounds, no accessory muscle use, No crackles, No rales, No rhonchi Gastrointestinal: normal bowel sounds, non tender, soft, no organomegaly, No guarding, No rebound Back: normal inspection, no CVA tenderness, no vertebral tenderness Extremities: normal range of motion, normal inspection Psychiatric: alert, oriented x 3 Crainal Nerves: normal hearing, normal speech, PERRL, other (CN II-XII grossly intact) Coordination/Gait: normal finger to nose Motor/Sensory: no motor deficit, no sensory deficit, no pronator drift Skin: normal color, warm/dry (CHARO LEO MEDICAL STUDENT) Progress/Results/Core Measures Results/Orders Lab Results Laboratory Tests Test 07/14/17 17:00 Range/Units Erythrocyte Sedimentation Rate 14 0-20 MM/HR (RAN MERRITT APRN) My Orders Orders - RAN MERRITT APRN Ketorolac Injection (Toradol Injection) (07/14/17 16:15) Prochlorperazine Injection (Compazine In (07/14/17 16:15) Diphenhydramine Injection (Benadryl Inje (07/14/17 16:15) Ct Head Wo (07/14/17 16:25) Erythrocyte Sedimentation Rate (07/14/17 16:28) Butalbital/Apap/Caffeine Tab (Fioricet T (07/14/17 17:45) (RAN MERRITT APRN) Medications Given in ED Current Medications Medications Dose Ordered Sig/Flora Route Start Time Stop Time Status Last Admin Dose Admin Diphenhydramine HCl 25 mg ONCE ONCE IM 07/14/17 16:15 07/14/17 16:16 DC 07/14/17 16:23 25 MG Ketorolac Tromethamine 60 mg ONCE ONCE IM 07/14/17 16:15 07/14/17 16:16 DC 07/14/17 16:22 60 MG Prochlorperazine Edisylate 10 mg ONCE ONCE IM 07/14/17 16:15 07/14/17 16:16 DC 07/14/17 16:22 10 MG (RAN MERRITT APRN) Vital Signs/I&O Vital Sign - Last 12Hours 07/14/17 15:46 Temp 98.0 Pulse 91 Resp 18 B/P (MAP) 141/88 (105) Pulse Ox 97 (RAN MERRITT APRN) Blood Pressure Mean: 105 Departure Impression Impression: Primary Impression: Headache Disposition: 01 HOME, SELF-CARE Condition: Stable Departure-Patient Inst. Decision time for Depature: 17:24 (RAN MERRITT APRN) Referrals: RITU VANCE DO (PCP/Family) Primary Care Physician Patient Instructions: Headache, Adult (DC) Add. Discharge Instructions: All discharge instructions reviewed with patient and/or family. Voiced understanding. CHARO LEO MEDICAL STUDENT Jul 14, 2017 16:14 RAN MERRITT APRN Jul 14, 2017 17:24
[2017-07-14] MEDS ORDERED: diphenhydrAMINE 50 MG/ML INJ (BENADRYL) IM ONE (16:15)
[2017-07-14] MEDS ORDERED: KETOROLAC 60 MG/2 ML VIAL IM ONE (16:15)
[2017-07-14] MEDS ORDERED: PROCHLORPERAZINE 10 MG/2ML INJ (COMPAZINE) IM ONE (16:15)
--- NOTE | 2017-07-14 17:20 | Diagnostic Imaging Report ---
PROCEDURE: CT head without contrast. TECHNIQUE: Multiple contiguous axial images were obtained through the brain without the use of intravenous contrast. INDICATION: 51-year-old female with severe right-sided headache with visual disturbance. COMPARISONS: None. FINDINGS: Midline structures are not displaced. Lateral, third, and fourth ventricles are normal in size, shape, and anatomic position. There is no evidence of mass, mass effect, hydrocephalus, or hemorrhage. Corrigan-white differentiation is normal. There is no sulcal effacement. There are no abnormal extra-axial fluid collections or hemorrhage. The basilar cisterns appear normal. Sinuses, orbits, and mastoid air cells are normal. Bone windows show no calvarial changes. IMPRESSION: Unremarkable nonenhanced CT head. Dictated by: Dictated on workstation # [id number]
[2017-07-14] MEDS ORDERED: ACET/BUTAL/CAFF (FIORICET) TAB PO PRN (17:45)
[2017-07-14 18:23] VITALS: BP 132/78
== END 2017-07-14 18:23 | disposition home or self-care (01) ==
LOC: EDUNIT# 15:21 → ER 15:23
DX: R51 Headache (principal); Z87.448 Personal history of other diseases of urinary system; Z80.0 Family history of malignant neoplasm of digestive organs; Z87.19 Personal history of other diseases of the digestive system; Z90.49 Acquired absence of other specified parts of digestive tract; Z90.710 Acquired absence of both cervix and uterus
CPT/HCPCS: 36415; 70450; 85652; 96372; 99284

== ENCOUNTER 2017-08-31 18:07 | Emergency (ER) | payer BC ==
[~2017-08-31] VITALS: Ht 152.4 cm; Wt 50.8 kg
--- OUTSIDE RECORDS SUMMARY | 2017-08-31 18:11 | XMS REPORT | Clinical Summary ---
Author Author [facility] Organization [facility] Address Unknown Phone Unavailable Care Team Providers Care Health Outcomes Liaison Name Role Phone Enmanuel Nicolas DO PCP Source Comments Some departments are not documenting in the electronic medical record. If you do not see the information that you expected, contact Release of Information in the Health Information Management department at [phone] for further assistance in locating additional records.[facility] Allergies Not on File Current Medications Not [...]
--- OUTSIDE RECORDS SUMMARY | 2017-08-31 18:17 | XMS REPORT | Continuity of Care Document ---
Author Author [facility] Address Unknown Phone Unavailable Allergies Active Description Code Type Severity Reaction Onset Reported/Identified Relationship to Patient Clinical Status Yes Flagyl Drug Allergy N/A N/A 10/12/2013 Yes morphine Drug Allergy N/A N/A 10/12/2013 Yes Sulfa (Sulfonamide Antibiotics) Drug Allergy N/A N/A 10/12/2013 Yes FLU VACCINE FLU VACCINE Unknown N/A 04/21/2014 Yes morphine [id number] Drug Allergy Severe ITCHING AND FLU 04/28/2016 Yes metronidazole [id number] Drug Allergy Unknown N/A 04/28/2016 Yes Sulfa (Sulfonamide Antibiotics) [id number] Drug Allergy Unknown N/A 2015 Yes morphine [id number] Drug Allergy Severe ITCHING FLUSH 06/23/2016 Yes Influenza Virus Vaccines [id number] Drug Allergy Unknown N/A 06/23/2016 Medications There [...] DISORDER 02/25/2012 Ot 560.81 INTEST ADHES W [id number] 03/20/2013 RAN MERRITT SELLING SPECIALIST Ot 466.0 ACUTE BRONCHITIS 03/20/2013 RAN MERRITT SELLING SPECIALIST Ot 786.2 COUGH 09/26/2013 PÉREZ HORVATH MD Ot 564.00 UNSPEC CONSTIPATION 09/26/2013 PÉREZ HORVATH MD Ot 787.01 NAUSEA WITH VOMITING 10/12/2013 BETHANY DDS, TAMMY 789.07 ABDOMINAL PAIN GENERALIZED 10/12/2013 ANJANA SELLING SPECIALIST, ZAC R 789.07 ABDOMINAL PAIN GENERALIZED 10/12/2013 ANJANA SELLING SPECIALIST, ZAC R 789.07 ABDOMINAL PAIN GENERALIZED 10/12/2013 ANJANA SELLING SPECIALIST, ZAC R 789.07 ABDOMINAL PAIN GENERALIZED 10/12/2013 [...] Ot 531.90 STOMACH ULCER NOS 03/09/2014 ANJANA SELLING SPECIALIST, ZAC R 780.60 FEVER, UNSPECIFIED 03/09/2014 ANJANA SELLING SPECIALIST, ZAC R 786.2 COUGH 03/09/2014 ANJANA SELLING SPECIALIST, ZAC R 780.60 FEVER, UNSPECIFIED 03/09/2014 ANJANA SELLING SPECIALIST, ZAC R 786.2 COUGH 03/09/2014 ANJANA SELLING SPECIALIST, ZAC R 780.60 FEVER, UNSPECIFIED 03/09/2014 ANJANA SELLING SPECIALIST, ZAC R 786.2 COUGH 03/09/2014 FATOUMATA ROCHE [...] APRN 461.9 SINUSITIS ACUTE 06/27/2014 PEYTON VALENCIA OJNATHAN K 461.9 SINUSITIS ACUTE 07/08/2014 CINDY DONOHUE, [...] STOMACH ULCER NOS 04/25/2016 MICKEY DONOHUE, MEGAN Wtats Ot 537.0 ACQ PYLORIC STENOSIS 04/25/2016 MICKEY [...] PERSONAL HISTORY OF PEPTIC ULCER DISEASE 04/26/2016 CINDY DONOHUE, CROW A Ot Z98.890 OTHER SPECIFIED [...] POLYP OF COLON 05/22/2016 YANI DONOHUE, GARRY Zaho Ot D50.0 IRON DEFICIENCY ANEMIA SECONDARY TO [...] DO Ot Z98.890 OTHER SPECIFIED POSTPROCEDURAL STATES 07/14/2017 RAN MERRITT APRN Ot G43.909 MIGRAINE, UNSP, NOT INTRACTABLE, WITHOUT 07/14/2017 RAN MERRITT APRN Ot R51 HEADACHE 07/14/2017 RAN MERRITT APRN Ot Z80.0 FAMILY HISTORY OF MALIGNANT NEOPLASM OF 07/14/2017 RAN MERRITT APRN Ot Z87.19 PERSONAL HISTORY OF OTHER DISEASES OF TH 07/14/2017 RAN MERRITT APRN Ot Z87.448 PERSONAL HISTORY OF OTHER DISEASES OF UR 07/14/2017 RAN MERRITT APRN Ot Z90.49 ACQUIRED ABSENCE OF OTHER SPECIFIED PART 07/14/2017 RAN MERRITT APRN Ot Z90.710 ACQUIRED ABSENCE OF BOTH CERVIX AND UTER 07/14/2017 Ot 793.82 INCONCLUSIVE MAMMOGRAM 07/14/2017 Ot V76.12 OTH SCREEN MAMMO-MALIGN NEOPLASM OF ZOE 07/14/2017 MICKEY DONOHUE, MEGAN S Ot V72.84 EXAM PRE-OPERATIVE NOS 07/14/2017 MICKEY DONOHUE, MEGAN Watts Ot V72.84 EXAM PRE-OPERATIVE NOS 07/14/2017 MICKEY DONOHUE, MEGAN S Ot V72.84 EXAM PRE-OPERATIVE NOS 07/14/2017 MICKEY DONOHUE, MEGAN S Ot 530.11 REFLUX ESOPHAGITIS 07/14/2017 MICKEY DONOHUE, MEGAN S Ot 531.90 STOMACH ULCER NOS 07/14/2017 MICKEY DONOHUE, MEGAN S Ot 537.0 ACQ PYLORIC STENOSIS 07/14/2017 MICKEY DONOHUE, MEGAN S Ot V72.84 EXAM PRE-OPERATIVE NOS 07/14/2017 MICKEY DONOHUE, MEGAN Watts Ot V72.84 EXAM PRE-OPERATIVE NOS 07/14/2017 MICKEY DONOHUE, MEGAN S Ot 530.11 REFLUX ESOPHAGITIS 07/14/2017 MICKEY DONOHUE, MEGAN S Ot 537.0 ACQ PYLORIC STENOSIS 07/14/2017 MICKEY DONOHUE, MEGAN S Ot V72.84 EXAM PRE-OPERATIVE NOS 07/14/2017 MICKEY DONOHUE, MEGAN S Ot 530.11 REFLUX ESOPHAGITIS 07/14/2017 MICKEY DONOHUE, MEGAN S Ot 531.90 STOMACH ULCER NOS 07/14/2017 MICKEY DONOHUE, MEGAN Watts Ot 537.0 ACQ PYLORIC STENOSIS 07/14/2017 MICKEY DONOHUE, MEGAN S Ot V72.84 EXAM PRE-OPERATIVE NOS 07/14/2017 MICKEY DONOHUE, MEGAN S Ot V72.84 EXAM PRE-OPERATIVE NOS 07/14/2017 MICKEY DONOHUE, MEGAN S Ot V72.84 EXAM PRE-OPERATIVE NOS 07/14/2017 MICKEY DONOHUE, MEGAN S Ot V72.84 EXAM PRE-OPERATIVE NOS 07/14/2017 MICKEY DONOHUE, MEGAN S Ot V72.84 EXAM PRE-OPERATIVE NOS 07/14/2017 Ot Z12.31 ENCNTR SCREEN MAMMOGRAM FOR MALIGNANT NE 07/14/2017 VIDA CHANCE DO Ot R11.2 NAUSEA WITH VOMITING, UNSPECIFIED 07/14/2017 YANI DONOHUE, GARRY Zhao Ot D50.0 IRON DEFICIENCY ANEMIA SECONDARY TO BLOO 07/16/2017 RAN MERRITT SELLING SPECIALIST Ot G43.909 MIGRAINE, UNSP, NOT INTRACTABLE, WITHOUT 07/16/2017 RAN MERRITT SELLING SPECIALIST Ot R51 HEADACHE 07/16/2017 MERRITTRAN BERNARD SELLING SPECIALIST Ot Z80.0 FAMILY HISTORY OF MALIGNANT NEOPLASM OF 07/16/2017 RAN MERRITT Serjio SELLING SPECIALIST Ot Z87.19 PERSONAL HISTORY OF OTHER DISEASES OF TH 07/16/2017 RAN MERRITT SELLING SPECIALIST Ot Z87.448 PERSONAL HISTORY OF OTHER DISEASES OF UR 07/16/2017 MERRITTRAN BERNARD Serjio SELLING SPECIALIST Ot Z90.49 ACQUIRED ABSENCE OF OTHER SPECIFIED PART 07/16/2017 MERRITT, RAN Bassett SELLING SPECIALIST Ot Z90.710 ACQUIRED ABSENCE OF BOTH CERVIX AND UTER 08/08/2017 MICKEY DONOHUE, MEGAN S Ot V72.84 EXAM PRE-OPERATIVE NOS 08/08/2017 MICKEY DONOHUE, MEGAN S Ot V72.84 EXAM PRE-OPERATIVE NOS 08/08/2017 MICKEY DONOHUE, MEGAN S Ot V72.84 EXAM PRE-OPERATIVE NOS 08/08/2017 MEGAN AREVALO MD S Ot 530.11 REFLUX ESOPHAGITIS 08/08/2017 MICKEY DONOHUE, MEGAN S Ot 531.90 STOMACH ULCER NOS 08/08/2017 MICKEY DONOHUE, MEGAN S Ot 537.0 ACQ PYLORIC STENOSIS 08/08/2017 MEGAN AREVALO MD S Ot V72.84 EXAM PRE-OPERATIVE NOS 08/08/2017 MEGAN AREVALO MD S Ot V72.84 EXAM PRE-OPERATIVE NOS 08/08/2017 MICKEY DONOHUE, MEGAN S Ot 530.11 REFLUX ESOPHAGITIS 08/08/2017 MEGAN AREVALO MD S Ot 537.0 ACQ PYLORIC STENOSIS 08/08/2017 MEGAN AREVALO MD S Ot V72.84 EXAM PRE-OPERATIVE NOS 08/08/2017 MEGAN AREVALO MD S Ot 530.11 REFLUX ESOPHAGITIS 08/08/2017 MEGAN AREVALO MD S Ot 531.90 STOMACH ULCER NOS 08/08/2017 MEGAN AREVALO MD S Ot 537.0 ACQ PYLORIC STENOSIS 08/08/2017 MEGAN AREVALO MD S Ot V72.84 EXAM PRE-OPERATIVE NOS 08/08/2017 MEGAN AREVALO MD S Ot V72.84 EXAM PRE-OPERATIVE NOS 08/08/2017 MEGAN AREVALO MD S Ot V72.84 EXAM PRE-OPERATIVE NOS 08/08/2017 MEGAN AREVALO MD S Ot V72.84 EXAM PRE-OPERATIVE NOS 08/08/2017 MICKEY DONOHUE, MEGAN Watts Ot V72.84 EXAM PRE-OPERATIVE NOS 08/08/2017 Ot Z12.31 ENCNTR SCREEN MAMMOGRAM FOR MALIGNANT NE 08/08/2017 VIDA CHANCE DO Ot R11.2 NAUSEA WITH VOMITING, UNSPECIFIED 08/08/2017 YANI DONOHUE, GARRY Zhao Ot D50.0 IRON DEFICIENCY ANEMIA SECONDARY TO BLOO Procedures Code Description Performed By Performed On 38.93 VENOUS CATHETERIZATION NEC 02/21/2012 54.51 LAPAROSCOP LYSIS-PERITONEAL ADHES 02/21/2012 30420 ROUTINE VENIPUNCTURE 10/12/2013 22558 CMP 10/13/2013 [id number] GFR CALC (RESULT ONLY) 10/13/2013 02429 LIPASE 10/13/2013 24418 ROUTINE VENIPUNCTURE 03/09/2014 71430 CBC 03/09/2014 35178 MYCOPLASMA ANTIBODY 03/09/2014 05086 OXIMETRY 03/09/2014 18706 UA W/ CULTURE IF INDICATED 04/06/2014 47808 CULTURE URINE 04/07/2014 50225 INFLUENZA A & B (IN-HOUSE) 06/27/2014 [id number] CONTROL BLEEDING IN GASTROINTESTINAL TRA 04/28/2016 Results [...] CELLS LEUKO REDUCED AS1 TRANSFUSED 04/24/16 1432 [facility] Blood type T Indirect antibody screen panel - 04/24/16 13:44 ABO+Rh group OP [facility] Transfusion band number [id number] [facility] Blood group antibody screen NEGATIVE [facility] Complete blood count (CBC) with automated white [...] Automated blood platelet mean volume measurement 10.[address]] 7.4-10.4 Automated blood neutrophils/100 leukocytes 67 % [...] RED CELLS LEUKO REDUCED AS1 NOT AVAILABLE [facility] Blood type T Indirect antibody screen panel - 04/28/16 11:43 ABO+Rh group OP [facility] Transfusion band number [id number] [facility] Blood group antibody screen NEGATIVE [facility] Comprehensive metabolic panel - 04/28/16 11:43 Serum [...] or plasma urea nitrogen/creatinine mass ratio 23 NR Serum or plasma creatinine measurement with calculation [...] culture - 05/24/16 11:15 Bacterial urine culture [id number] NRG COLONY COUNT >100,000/ML NRG FTX;REPORTABLE SENSITIVITY REPORTED 05/26/16 11:50 NRG URINE CULTURE RESULTS <10,000/ML NRG FREE TEXT ENTRY 2 PLUS MIXED GRAM POSITIVES NRG FREE TEXT ENTRY 3 <10,000/ML NR Bacterial susceptibility panel - 05/24/16 11:15 Gentamicin [...] - 05/24/16 11:47 Bacterial blood culture NG NR Complete blood count (CBC) with automated white [...] 15:00 Bacteria identification in wound by culture [id number] NRG FREE TEXT EXTERNAL SENSTIVITY REPORTED 06/24 07:40 NRG QUANTITY OF GROWTH Scant Growth NRG MRSA AGAR MRSA isolated (Screening test for MRSA is positive) NRG CALL POSITIVES (F1 HELP) CALLED TO [facility] IN ER 06/24 09:40 NRG Bacterial susceptibility panel - 06/22/16 15:00 Oxacillin [...] blood basophil count (count/volume) 0.0 10*3/uL 0.0-0.1 Erythrocyte sedimentation rate by westergren method - 07/14/17 17:00 Erythrocyte sedimentation rate by westergren method 14 mm 0-20 Encounters ACCT No. Visit Date/Time Discharge Status Pt. Type Provider Facility Loc./Unit Complaint [id number] 10/03/2014 11:20:00 10/03/2014 23:59:59 CLS Outpatient JONATHAN TODD DO [id number] 06/27/2014 16:12:00 06/27/2014 23:59:59 CLS Outpatient WHITLEY ROCHE APRN [id number] 05/10/2014 15:51:00 05/10/2014 23:59:59 CLS Outpatient ZAC YEUNG APRN [id number] 04/06/2014 08:50:00 04/06/2014 23:59:59 CLS Outpatient ZAC YEUNG APRN [id number] 03/09/2014 15:13:00 03/09/2014 23:59:59 CLS Outpatient ZAC YEUNG APRN R [id number] 10/13/2013 00:00:00 10/13/2013 23:59:59 CLS Outpatient TAMMY SIMS DDS [id number] 07/14/2017 15:23:00 07/14/2017 18:23:00 DIS Emergency RAN MERRITT APRN [facility] ER HEADACHE [id number] 08/05/2016 13:36:00 08/05/2016 15:35:00 DIS Emergency SONNY KRISHNAN DO [facility] ER FEVER COUGH/CHEST CONGESTION EARACHE ABD PAIN [id number] 06/22/2016 20:10:00 06/23/2016 14:10:00 DIS Inpatient DELPHINE MCCARTHY MD [facility] 4TH ABDOMINAL PAIN, LEUKOCYTOSIS, FEVER [id number] 05/24/2016 09:56:00 05/24/2016 12:55:00 DIS Emergency YONIS GRAVES MD [facility] ER L SIDED ABD PAIN [id number] 05/21/2016 10:11:00 05/21/2016 23:59:59 CLS Outpatient GARRY LOMELI MD [facility] LAB CMP [id number] 04/28/2016 14:21:00 04/30/2016 13:55:00 DIS Inpatient PELAYO GIO VALENCIAI [facility] 4TH UGI BLEED/HYPOTENSION [id number] 04/24/2016 13:12:00 04/24/2016 14:55:00 DIS Emergency CROW WHITE MD [facility] ER ABD PAIN/VOMITING BLOOD [id number] 04/23/2016 13:55:00 04/23/2016 23:59:59 CLS Outpatient MERON VIDA [facility] LAB NAUSEA AND VOMITING [id number] 04/06/2015 12:03:00 04/06/2015 14:18:00 DIS Emergency MARCELO MONACO [facility] ER DENTAL PAIN [id number] 10/17/2014 13:34:00 10/17/2014 16:14:00 DIS Emergency YONIS GRAVES MD [facility] ER [id number] 07/14/2014 08:00:00 07/14/2014 23:59:59 CLS Preadmit MEGAN AREVALO MD [facility] DYSPHASIA [id number] 07/13/2014 07:15:00 07/13/2014 23:59:59 CLS Outpatient MEGAN AREVALO MD [facility] PREOP DYSPHASIA [id number] 07/09/2014 21:22:00 07/09/2014 23:36:00 DIS Emergency SONNY KRISHNAN DO [facility] ER DIZZINESS, DISCOLORED STOOLS [id number] 07/08/2014 16:08:00 07/08/2014 19:07:00 DIS Emergency CROW WHITE MD [facility] ER DISCOLORED URINE,ABD PAIN [id number] 06/09/2014 07:00:00 06/09/2014 09:50:00 DIS Outpatient MEGAN AREVALO MD [facility] STRICTURE [id number] 06/08/2014 13:02:00 06/08/2014 23:59:59 CLS Outpatient MEGAN AREVALO MD [facility] PREOP STRICTURE [id number] 05/26/2014 07:01:00 05/26/2014 09:50:00 DIS Outpatient MEGAN AREVALO MD [facility] DYSPHASIA [id number] 05/25/2014 07:18:00 05/25/2014 23:59:59 CLS Outpatient MEGAN AREVALO MD [facility] PREOP DYSPAHSIA [id number] 05/12/2014 07:59:00 05/12/2014 10:35:00 DIS Outpatient MEGAN AREVALO MD [facility] SDC STRICTURE [id number] 05/11/2014 07:39:00 05/11/2014 23:59:59 CLS Outpatient MEGAN AREVALO MD [facility] PREOP STRICTURE [id number] 05/05/2014 06:56:00 05/05/2014 23:59:59 CLS Outpatient MEGAN AREVALO MD [facility] STRICTURE [id number] 05/04/2014 07:54:00 05/04/2014 23:59:59 CLS Outpatient MEGAN AREVALO MD [facility] PREOP STRICTURE [id number] 04/28/2014 07:01:00 04/28/2014 23:59:59 CLS Outpatient MEGAN AREVALO MD [facility] STRICTURE [id number] 04/27/2014 07:24:00 04/27/2014 23:59:59 CLS Outpatient MEGAN AREVALO MD [facility] PREOP STRICTURE [id number] 04/21/2014 06:36:00 04/21/2014 08:55:00 DIS Outpatient MEGAN AREVALO MD [facility] DYSPHASA; ESOPHAGEAL STRICTURE [id number] 04/20/2014 07:27:00 04/20/2014 23:59:59 CLS Outpatient MEGAN AREVALO MD [facility] PREOP DYSPHASA; ESOPHAGEAL STRICTURE [id number] 04/14/2014 07:13:00 04/14/2014 10:50:00 DIS Outpatient MEGAN AREVALO MD [facility] DYSPHAGA; ESOPHAGEAL STRICTURE [id number] 04/07/2014 07:05:00 04/07/2014 09:25:00 DIS Outpatient MEGAN AREVALO MD [facility] DYSPHAGA; ESOPHAGEAL STRICTURE [id number] 03/31/2014 06:43:00 03/31/2014 09:20:00 DIS Outpatient MEGAN AREVALO MD [facility] STRICTURE [id number] 03/30/2014 07:22:00 03/30/2014 23:59:59 CLS Outpatient MEGAN AREVALO MD [facility] PREOP STRICTURE [id number] 03/17/2014 06:23:00 03/17/2014 23:59:59 CLS Outpatient MEGAN AREVALO MD [facility] PRE-PYLORIC ULCER [id number] 03/16/2014 07:46:00 03/16/2014 23:59:59 CLS Outpatient MEGAN AREVALO MD [facility] PREOP PRE-PYLORIC ULCER [id number] 02/24/2014 07:24:00 02/24/2014 09:20:00 DIS Outpatient MEGAN AREVALO MD [facility] PERIPYLORIC ANTRAL ULCER [id number] 02/23/2014 07:38:00 02/23/2014 23:59:59 CLS Outpatient MEGAN AREVALO MD [facility] PREOP PERIPYLORIC ANTRAL ULCER [id number] 01/13/2014 06:41:00 01/13/2014 10:20:00 DIS Outpatient MEGAN AREVALO MD [facility] GERD [id number] 01/12/2014 07:35:00 01/12/2014 23:59:59 CLS Outpatient MEGAN AREVALO MD [facility] PREOP GERD [id number] 12/17/2013 12:44:00 12/18/2013 11:57:00 DIS Outpatient MEGAN AREVALO MD [facility] ABDOMINAL PAIN NAUSEA VOMITING UTI [id number] 10/20/2013 17:09:00 10/20/2013 18:45:00 DIS PÉREZ Olson MD [facility] ER ABD PAIN [id number] 09/26/2013 14:57:00 09/26/2013 17:47:00 DIS Emergency YULIET DONOHUE, PÉREZ Harry [facility] ER NAUSEA VOMITING [id number] 03/20/2013 12:48:00 03/20/2013 15:50:00 DIS Emergency RAN MERRITT APRN [facility] ER COUGH CONGESTION [id number] 10/06/2015 14:07:00 Document Registration [id number] 07/20/2014 13:33:00 Document Registration [id number] 02/19/2012 09:56:00 Document Registration [id number] 02/18/2012 10:41:00 Document Registration [id number] 02/07/2012 08:38:00 Document Registration [id number] 07/24/2011 03:13:00 Document Registration [id number] 11/08/2010 09:10:00 Document Registration [id number] 10/10/2010 10:20:00 Document Registration [id number] 09/05/2010 10:15:00 Document Registration [id number] 08/23/2010 08:34:00 Document Registration [id number] 08/15/2010 15:18:00 Document Registration
[2017-08-31 18:34] LABS: BILIRUBIN,URINE NEGATIVE (NEGATIVE); CLARITY,URINE VERY CLOUDY; COLOR,URINE YELLOW; GLUCOSE, URINE (UA) NEGATIVE (NEGATIVE); KETONES,URINE NEGATIVE (NEGATIVE); LEUKOCYTE ESTERASE ,URINE 3+ (NEGATIVE); NITRITE,URINE POSITIVE (NEGATIVE); PH,URINE 6.5 (5-9); PROTEIN,URINE 1+ (NEGATIVE); UROBILINOGEN,URINE NORMAL (NORMAL)
[2017-08-31 18:40] LABS: BASOPHILS # (AUTO) 0.1 10^3/uL (0.0-0.1); BASOPHILS % (AUTO) 0 % (0-10); EOSINOPHILS # (AUTO) 0.2 10^3/uL (0.0-0.3); EOSINOPHILS % (AUTO) 2 % (0-10); HEMATOCRIT 41 % (35-52); HEMOGLOBIN 13.7 G/DL (11.5-16.0); LYMPHOCYTES # (AUTO) 3.2 X 10^3 (1.0-4.0); LYMPHOCYTES % (AUTO) 28 % (12-44); MEAN CORPUSCULAR HEMOGLOBIN 31 PG (25-34); MEAN CORPUSCULAR HGB CONC 33 G/DL (32-36); MEAN CORPUSCULAR VOLUME 95 FL (80-99); MEAN PLATELET VOLUME 9.5 FL (7.4-10.4); MONOCYTES # (AUTO) 1.1 X 10^3 (0.0-1.0); MONOCYTES % (AUTO) 10 % (0-12); NEUTROPHILS # (AUTO) 6.8 X 10^3 (1.8-7.8); NEUTROPHILS % (AUTO) 60 % (42-75); PLATELET COUNT 428 10^3/uL (130-400); RED BLOOD COUNT 4.36 10^6/uL (4.35-5.85); RED CELL DISTRIBUTION WIDTH 13.6 % (10.0-14.5); WHITE BLOOD COUNT 11.3 10^3/uL (4.3-11.0)
[2017-08-31] MEDS ORDERED: fentaNYL INJECTION 100 MCG/2 ML AMP IVP STA ×2 (18:49→20:17)
[2017-08-31] MEDS ORDERED: NS IV 1000 ML 1,000 ML IV ONE (18:49)
[2017-08-31] MEDS ORDERED: FAMOTIDINE 20MG/2ML IV (PEPCID) IV STA (18:49)
[2017-08-31 18:55] LABS: ALANINE AMINOTRANSFERASE 17 U/L (0-55); ALBUMIN 2.8 GM/DL (3.2-4.5); ALKALINE PHOSPHATASE 86 U/L (40-136); BILIRUBIN,TOTAL < 0.1 MG/DL (0.1-1.0); BUN/CREATININE RATIO 17; CALCIUM 8.2 MG/DL (8.5-10.1); CARBON DIOXIDE 24 MMOL/L (21-32); CHLORIDE 109 MMOL/L (98-107); CREATININE SERUM 0.63 MG/DL (0.60-1.30); GFR ESTIMATED > 60; GLUCOSE 114 MG/DL (70-105); LIPASE 31 U/L (8-78); POTASSIUM 3.7 MMOL/L (3.6-5.0); SODIUM 143 MMOL/L (135-145); TOTAL PROTEIN 5.3 GM/DL (6.4-8.2)
[2017-08-31 18:55] LABS: BACTERIA,URINE LARGE /HPF; WBC,URINE 25-50 /HPF
[2017-08-31] MEDS ORDERED: NS 100 ML (IVPB) BAG IV ONE (19:00)
[2017-08-31] MEDS ORDERED: ONDANSETRON 4 MG/2 ML (SDV) Z0FRAN IVP ONE (19:00)
[2017-08-31] MEDS ORDERED: IOHEXOL 350 MG/ML 100 ML (OMNIPAQUE 350) VIAL IV ONE (19:00)
--- NOTE | 2017-08-31 19:05 | ED Abdominal Pain ---
General Chief Complaint: Abdominal/GI Problems Stated Complaint: STOMACH PAIN Nursing Triage Note: C/O abd pain after meals. States she becomes bloated and has isseus with vomiting. Denies diarrhea. Started 1 week ago. States state freq and sl buring with urination Sepsis Screen: No Definite Risk Source of Information: Patient Exam Limitations: No Limitations History of Present Illness Date Seen by Provider: Aug 31, 2017 Time Seen by Provider: 18:40 Initial Comments 51-year-old female patient presents to the emergency Department with reports of epigastric pain/burning sensation 1 week. Does complain of intermittent bloating and nausea/vomiting. Worse after eating. Does have some urinary frequency and dysuria. Denies diarrhea, fever, melena, hematochezia, or hematemesis. Patient did undergo a partial gastrectomy by Dr. Mir at [facility] in March 2016 for gastric ulcers with subsequent leak in June 2016. Timing/Duration: 1 Week, Getting Worse, Intermittent Severity/Quality: Aching, Burning, Cramping Location: Epigastric Radiation: No Radiation Activities at Onset: None Modifying Factors: Worsens With Eating, Worsens With Movement, Worsens With Palpation, Improves With Vomiting Allergies and Home Medications Allergies Coded Allergies: morphine (Verified Allergy, Severe, ITCHING & FLUSHING, PT HAS RECEIVED HYDROCODONE IN THE PAST, 08/31/17) Influenza Virus Vaccines (Unverified Allergy, Unknown, 08/31/17) metronidazole (Verified Allergy, Unknown, 08/31/17) Sulfa (Sulfonamide Antibiotics) (Verified Adverse Reaction, Unknown, ) Home Medications Albuterol Sulfate 8.5 Gm Hfa.aer.ad, 1-2 PUFF IH Q4H PRN for cough/wheeze/SOA Prescribed by: SONNY KRISHNAN on 08/05/16 1529 Calcium Carbonate/Vitamin D3 1 Each Tablet, 1 TAB PO BID, (Reported) Dicyclomine HCl 20 Mg Tablet, 20 MG PO QID Prescribed by: SANGITA ZAMORA on 06/23/16 1057 Estrogen,Sylvie/Me-Testosterone 1 Each Tablet, 2 TAB PO DAILY, (Reported) LAST FILLED 03/20/16 #60 Famotidine 20 Mg Tablet, 20 MG PO BID Prescribed by: MARCELO KEEN on 08/31/172028 Ferrous Sulfate 325 Mg Tablet, 325 MG PO BID, (Reported) Gabapentin 300 Mg Capsule, 600 MG PO TID, (Reported) TAKES 2 (300 MG) CAPSULES Hydrocodone/Chlorphen P-Stirex 480 Ml Nyasia.er.12h, 5 ML PO Q12H PRN for cough/ congestion Prescribed by: SONNY KRISHNAN on 08/05/16 1529 Nitrofurantoin Monohyd/M-Cryst 100 Mg Capsule, 1 TAB PO BID Prescribed by: MARCELO KEEN on 08/31/172028 Norgestimate-Ethinyl Estradiol 1 Each Tablet, 1 TAB PO DAILY, (Reported) TK 1 T PO D CONTINUOUSLY OF ACTIVE PILLS ONLY OR UTD / LAST FILLED 01/19/16 # 84 Ondansetron 8 Mg Tab.rapdis, 8 MG PO Q6H PRN for NAUSEA/VOMITING-1ST LINE Prescribed by: MARCELO KEEN on 08/31/172028 Pantoprazole Sodium 40 Mg Tablet.dr, 40 MG PO BID, (Reported) Review of Systems Constitutional: No chills, No fever, No malaise EENTM: No Symptoms Reported Respiratory: Denies Cough, Denies Shortness of Air, Denies SOA With Exertion, Denies Wheezing Cardiovascular: Denies Chest Pain, Denies Lightheadedness, Denies Palpitations , Denies Syncope Gastrointestinal: See HPI, Abdomen Distended, Abdominal Pain, Denies Blood Streaked Stools, Denies Constipated, Denies Diarrhea, Nausea, Poor Appetite, Poor Fluid Intake, Denies Rectal Bleeding, Vomiting Genitourinary: See HPI, Frequency, Denies Flank Pain, Denies Hematuria, Other ( dysuria) Musculoskeletal: no symptoms reported Skin: no symptoms reported All Other Systems Reviewed Negative Unless Noted: Yes (Negative excepted noted.) Past Ejlzquq-Pnwuet-Anvhnp Hx Patient Social History Alcohol Use: Denies Use Recreational Drug Use: No Smoking Status: Former Smoker Former Smoker, Quit: Apr 24, 2016 2nd Hand Smoke Exposure: No Recent Foreign Travel: No Contact w/Someone Who Travel: No Recent Infectious Disease Expo: No Recent Hopitalizations: No (GI BLEED) Physical Abuse: No Sexual Abuse: No Mistreated: No Fear: No Immunizations Up To Date Tetanus Booster (TDap): More than 5yrs Seasonal Allergies Seasonal Allergies: Yes Surgeries History of Surgeries: Yes (partial gastrectomy) Surgeries: Abdominal, Hysterectomy Respiratory History of Respiratory Disorde: No Cardiovascular History of Cardiac Disorders: No Neurological History of Neurological Disord: Yes Neurological Disorders: Headaches /Migraines Reproductive System Hx 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: No Sexually Transmitted Disease: No HIV/AIDS: No 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, Ovarian Cyst 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 Gastrointestinal History of Gastrointestinal Di: Yes Gastrointestinal Disorders: Gastrointestinal Bleed, Obstructive Bowel, Ulcer Musculoskeletal History of Musculoskeletal Dis: Yes Musculoskeletal Disorders: Scoliosis Endocrine History of Endocrine Disorders: Yes (hypoglycemia) HEENT Loss of Vision: Denies Hearing Impairment: Denies Cancer History of Cancer: No Psychosocial History of Psychiatric Problem: No Suicide Risk Score: 0 Integumentary History of Skin or Integumenta: No Blood Transfusions History of Blood Disorders: Yes (anemia) Adverse Reaction to a Blood Tr: No Reviewed Nursing Assessment Reviewed/Agree w Nursing PMH: Yes Family Medical History Significant Family History: No Pertinent Family Hx Family Medial History: Cancer of colon GRANDMOTHER Family history: Diabetes mellitus 19 FATHER Family history: Hypertension 19 MOTHER Stroke 19 MOTHER Physical Exam Vital Signs VS - Last 72 Hours, by Label 08/31/17 18:15 Temp 99.2 Pulse 107 Resp 18 B/P (MAP) 103/69 (80) Pulse Ox 95 Capillary Refill : Less Than 3 Seconds General Appearance: WD/WN, no apparent distress HEENT: PERRL/EOMI, pharynx normal Neck: supple, normal inspection Respiratory: lungs clear, normal breath sounds, no respiratory distress, no accessory muscle use Cardiovascular: normal peripheral pulses, no edema, no murmur, tachycardia Peripheral Pulses: 2+ Dorsalis Pedis (R), 2+ Left Dors-Pedis (L), 2+ Radial Pulses (R), 2+ Radial Pulses (L) Gastrointestinal: normal bowel sounds, soft, no organomegaly, distended ( distended, but soft), guarding (epigastric guarding), No rebound, tenderness ( generalized upper abdominal tenderness with greatest tenderness in the epigastric region) Extremities: no pedal edema, normal capillary refill Back: normal inspection, no CVA tenderness Neurologic/Psychiatric: alert, normal mood/affect, oriented x 3 Skin: normal color, warm/dry Progress/Results/Core Measures Results/Orders Lab Results Laboratory Tests Test 08/31/17 18:15 08/31/17 18:27 Range/Units Urine Color YELLOW Urine Clarity VERY CLOUDY H Urine pH 6.5 5-9 Urine Specific [place] 1.015 L 1.016-1.022 Urine Protein 1+ H NEGATIVE Urine Glucose (UA) NEGATIVE NEGATIVE Urine Ketones NEGATIVE NEGATIVE Urine Nitrite POSITIVE H NEGATIVE Urine Bilirubin NEGATIVE NEGATIVE Urine Urobilinogen NORMAL NORMAL MG/DL Urine Leukocyte Esterase 3+ H NEGATIVE Urine RBC (Auto) 1+ H NEGATIVE Urine RBC NONE /HPF Urine WBC 25-50 H /HPF Urine Squamous Epithelial Cells 5-10 /HPF Urine Crystals NONE /LPF Urine Bacteria LARGE H /HPF Urine Casts NONE /LPF Urine Mucus NEGATIVE /LPF Urine Culture Indicated YES White Blood Count 11.3 H 4.3-11.0 10^3/uL Red Blood Count 4.36 4.35-5.85 10^6/uL Hemoglobin 13.7 11.5-16.0 G/DL Hematocrit 41 35-52 % Mean Corpuscular Volume 95 80-99 FL Mean Corpuscular Hemoglobin 31 25-34 PG Mean Corpuscular Hemoglobin Concent 33 32-36 G/DL Red Cell Distribution Width 13.6 10.0-14.5 % Platelet Count 428 H 130-400 10^3/uL Mean Platelet Volume 9.5 7.4-10.4 FL Neutrophils (%) (Auto) 60 42-75 % Lymphocytes (%) (Auto) 28 12-44 % Monocytes (%) (Auto) 10 0-12 % Eosinophils (%) (Auto) 2 0-10 % Basophils (%) (Auto) 0 0-10 % Neutrophils # (Auto) 6.8 1.8-7.8 X 10^3 Lymphocytes # (Auto) 3.2 1.0-4.0 X 10^3 Monocytes # (Auto) 1.1 H 0.0-1.0 X 10^3 Eosinophils # (Auto) 0.2 0.0-0.3 10^3/uL Basophils # (Auto) 0.1 0.0-0.1 10^3/uL Sodium Level 143 135-145 MMOL/L Potassium Level 3.7 3.6-5.0 MMOL/L Chloride Level 109 H 98-107 MMOL/L Carbon Dioxide Level 24 21-32 MMOL/L Anion Gap 10 5-14 MMOL/L Blood Urea Nitrogen 11 7-18 MG/DL Creatinine 0.63 0.60-1.30 MG/DL Estimat Glomerular Filtration Rate > 60 BUN/Creatinine Ratio 17 Glucose Level 114 H 70-105 MG/DL Calcium Level 8.2 L 8.5-10.1 MG/DL Total Bilirubin < 0.1 L 0.1-1.0 MG/DL Aspartate Amino Transf (AST/SGOT) 17 5-34 U/L Alanine Aminotransferase (ALT/SGPT) 17 0-55 U/L Alkaline Phosphatase 86 40-136 U/L C-Reactive Protein High Sensitivity 0.73 H 0.00-0.50 MG/DL Total Protein 5.3 L 6.4-8.2 GM/DL Albumin 2.8 L 3.2-4.5 GM/DL Lipase 31 8-78 U/L My Orders Orders - MARCELO KEEN Cbc With Automated Diff (08/31/17 18:27) Comprehensive Metabolic Panel (08/31/17 18:27) Hs C Reactive Protein (08/31/17 18:27) Lipase (08/31/17 18:27) Ua Culture If Indicated (08/31/17 18:27) Saline Lock/Iv-Start (08/31/17 18:27) Ct Abdomen/Pelvis W (08/31/17 18:49) Fentanyl Injection (Sublimaze Injection (08/31/17 18:49) Ondansetron Injection (Zofran Injectio (08/31/17 19:00) Famotidine Injection (Pepcid Injection) (08/31/17 18:49) Ns Iv 1000 Ml (Sodium Chloride 0.9%) (08/31/17 18:49) Iohexol Injection (Omnipaque 350 Mg/Ml 1 (08/31/17 19:00) Ns (Ivpb) (Sodium Chloride 0.9% Ivpb Bag (08/31/17 19:00) Urine Culture (08/31/17 18:15) Ceftriaxone Injection (Rocephin Injectio (08/31/17 20:15) Fentanyl Injection (Sublimaze Injection (08/31/17 20:17) Medications Given in ED Current Medications Medications Dose Ordered Sig/Flora Route Start Time Stop Time Status Last Admin Dose Admin Ceftriaxone Sodium 1000 mg/ Sodium Chloride 50 ml @ 100 mls/hr ONCE ONCE IV 08/31/17 20:15 08/31/17 20:44 08/31/17 20:18 100 MLS/HR Iohexol 100 ml ONCE ONCE IV 08/31/17 19:00 08/31/17 19:15 DC 08/31/17 19:23 100 ML Ondansetron HCl 4 mg ONCE ONCE IVP 08/31/17 19:00 08/31/17 19:01 DC 08/31/17 19:14 4 MG Sodium Chloride 100 ml ONCE ONCE IV 08/31/17 19:00 08/31/17 19:15 DC 08/31/17 19:14 100 ML Sodium Chloride 1,000 ml @ 0 mls/hr Q0M ONCE IV 08/31/17 18:49 08/31/17 18:51 DC 08/31/17 19:14 1,000 MLS/HR Vital Signs/I&O Vital Sign - Last 12Hours 08/31/17 18:15 Temp 99.2 Pulse 107 Resp 18 B/P (MAP) 103/69 (80) Pulse Ox 95 Blood Pressure Mean: 80 Diagnostic Imaging Diagonstic Imaging: CT Plain Films/CT/US/NM/MRI: abdomen, pelvis Comments FINDINGS: The visualized portions of the lung bases are clear. The heart is not enlarged. There is no pericardial effusion. The liver is normal in size and contour. There is no identified liver lesion. The main, right and left portal veins are patent. The gallbladder is unremarkable. There is no intrahepatic or extrahepatic bile duct dilation. There does appear to be pancreas divisum. The main pancreatic duct is not grossly dilated. The pancreatic parenchyma is unremarkable. The spleen is normal in size. The adrenal glands are unremarkable. Unremarkable appearance of the renal parenchyma. The urinary collecting systems are not distended. There is no identified renal or ureteral stone. The urinary bladder is grossly unremarkable in appearance. The uterus is not seen and may be surgically absent. The patient is status post gastric bypass procedure. The small bowel loop in the region of the anastomosis is fluid -filled and mildly dilated to a diameter of approximately 3.9 cm. There is no additional distention of the intestinal tract. There is no free intraperitoneal air. There is no drainable fluid collection. There is no free pelvic fluid. There is no identified abnormally enlarged lymph node within the abdomen or pelvis which meets CT size criteria for adenopathy. There is no identified acute bony abnormality. There are multilevel degenerative changes of the spine. IMPRESSION: CT abdomen and pelvis: 1. Status post gastric bypass procedure. The small bowel loop near the region of the anastomosis is mildly dilated and fluid- filled, measuring up to 3.8 cm in diameter. The additional intestinal tract is not distended. 2. No identified acute abnormality within the abdomen or pelvis. Dictated on workstation # [id number] Reviewed: Reviewed by Me (radiology report reviewed by me) Departure Communication (Admissions) Progress Notes All laboratory and diagnostic findings discussed with the patient. Patient was given fentanyl 50 g, 1 L normal saline, 20 mg Pepcid, and 4 mg of Zofran IV while in the emergency department. Patient reported complete resolution of symptoms. Patient was noted to have a urinary tract infection on labs. Patient was given 1 g of Rocephin IV. She did report recurrence of mild epigastric pain. Fentanyl 50 g dose was repeated 1. Discharge to home with follow-up as an outpatient with Dr. Gr. Impression Impression: Primary Impression: Gastritis Qualified Codes: K29.00 - Acute gastritis without bleeding Additional Impression: Urinary tract infection Qualified Codes: N30.00 - Acute cystitis without hematuria Disposition: HOME, SELF-CARE Condition: Improved Departure-Patient Inst. Decision time for Depature: 20:27 Referrals: RITU VANCE DO (PCP/Family) Primary Care Physician Patient Instructions: Gastritis (DC), Urinary Tract Infection, Adult (DC) Add. Discharge Instructions: All discharge instructions reviewed with patient and/or family. Voiced understanding. Medications as instructed. Continue usual home medications. Drink plenty of fluids. Avoid spicy foods, fatty foods, carbonated beverages, caffeinated beverages, aspirin, and NSAIDs. Do not eat within 2 hours of lying down. Follow-up with Dr. Vance as an outpatient for recheck within the next 7 days. Call for appointment time tomorrow morning. Return to the emergency department immediately for worsened pain, vomiting blood, fever, black stools, rectal bleeding, abdominal swelling, inability to pass gas or have a bowel movement, or any other concerns. Scripts Ondansetron (Ondansetron Odt) 8 Mg Tab.rapdis 8 MG PO Q6H Y for NAUSEA/VOMITING-1ST LINE, #10 TAB 0 Refills Prov: MARCELO KEEN 08/31/17 Famotidine (Pepcid) 20 Mg Tablet 20 MG PO BID, #20 TAB 0 Refills Prov: MARCELO KEEN 08/31/17 Nitrofurantoin Monohyd/M-Cryst (Macrobid 100 mg Capsule) 100 Mg Capsule 1 TAB PO BID, #14 CAP 0 Refills Prov: MARCELO KEEN 08/31/17 Work/School Note: Work Release Form Date Seen in the Emergency Department: Aug 31, 2017 Return to Work: Sep 02, 2017 Restrictions: No Restrictions MARCELO KEEN Aug 31, 2017 19:05
--- NOTE | 2017-08-31 19:38 | Diagnostic Imaging Report ---
PROCEDURE: CT abdomen and pelvis with contrast. TECHNIQUE: Multiple contiguous axial images were obtained through the abdomen and pelvis after administration of intravenous contrast. DATE: 08/31/2017. COMPARISON: CT abdomen pelvis, 06/22/2016. INDICATION: 51-year-old female, mid abdominal pain for one week. Nausea and vomiting. FINDINGS: The visualized portions of the lung bases are clear. The heart is not enlarged. There is no pericardial effusion. The liver is normal in size and contour. There is no identified liver lesion. The main, right and left portal veins are patent. The gallbladder is unremarkable. There is no intrahepatic or extrahepatic bile duct dilation. There does appear to be pancreas divisum. The main pancreatic duct is not grossly dilated. The pancreatic parenchyma is unremarkable. The spleen is normal in size. The adrenal glands are unremarkable. Unremarkable appearance of the renal parenchyma. The urinary collecting systems are not distended. There is no identified renal or ureteral stone. The urinary bladder is grossly unremarkable in appearance. The uterus is not seen and may be surgically absent. The patient is status post gastric bypass procedure. The small bowel loop in the region of the anastomosis is fluid-filled and mildly dilated to a diameter of approximately 3.9 cm. There is no additional distention of the intestinal tract. There is no free intraperitoneal air. There is no drainable fluid collection. There is no free pelvic fluid. There is no identified abnormally enlarged lymph node within the abdomen or pelvis which meets CT size criteria for adenopathy. There is no identified acute bony abnormality. There are multilevel degenerative changes of the spine. IMPRESSION: CT abdomen and pelvis: 1. Status post gastric bypass procedure. The small bowel loop near the region of the anastomosis is mildly dilated and fluid-filled, measuring up to 3.8 cm in diameter. The additional intestinal tract is not distended. 2. No identified acute abnormality within the abdomen or pelvis. Dictated by: Dictated on workstation # [id number]
[2017-08-31] MEDS ORDERED: cefTRIAXone INJECTION 1,000 MG in NS (IVPB) 50 ML IV ONE (20:15)
[2017-08-31] MEDS ORDERED: FAMO-119 PO (20:29)
[2017-08-31] MEDS ORDERED: NITR-65 PO (20:29)
[2017-08-31] MEDS ORDERED: ONDA8TAB13 PO (20:29)
[2017-08-31 21:23] VITALS: BP 112/63
== END 2017-08-31 21:17 | disposition home or self-care (01) ==
LOC: EDUNIT# 18:07 → ER 18:08
DX: K29.70 Gastritis, unspecified, without bleeding (principal); N39.0 Urinary tract infection, site not specified; G43.909 Migraine, unspecified, not intractable, without status migrainosus; Z87.19 Personal history of other diseases of the digestive system; Z87.42 Personal history of other diseases of the female genital tract; Z90.710 Acquired absence of both cervix and uterus; Z87.891 Personal history of nicotine dependence; Z88.2 Allergy status to sulfonamides; Z88.5 Allergy status to narcotic agent; Z88.7 Allergy status to serum and vaccine; Z88.1 Allergy status to other antibiotic agents
CPT/HCPCS: 36415; 74177; 80053; 81000; 83690; 85025; 86141; 87077; 87088; 87186; 96361; 96365; 96375; 96376

== ENCOUNTER → 2017-09-09 | Outpatient (CLI) | payer BC ==
[~2017-09-09] MED LIST changes: +FAMO-119 PO; +NITR-65 PO; +ONDA8TAB13 PO
--- NOTE | 2017-09-09 09:27 | Diagnostic Imaging Report ---
INDICATION: Chronic knee pain COMPARISON: None. FINDINGS: 3 views of the left knee joint demonstrate no acute fracture or dislocation. No focal osseous lesions are seen. No significant joint effusion is seen. The surrounding soft tissue structures are unremarkable. There are no radiopaque foreign bodies. IMPRESSION: 1. No acute fractures or dislocations of the left knee joint. Dictated by: Dictated on workstation # [id number]
== END ==
LOC: RAD 08:19
PROVIDERS: ATTEND Family Medicine
DX: M25.562 Pain in left knee (principal); G89.29 Other chronic pain
CPT/HCPCS: 73562

== ENCOUNTER → 2017-11-27 | Outpatient (CLI) | payer BC ==
[~2017-11-27] MED LIST changes: +ONDA4TAB11 PO
== END ==
LOC: RAD 07:53
DX: Z53.8 Procedure and treatment not carried out for other reasons (principal); M25.562 Pain in left knee

== ENCOUNTER 2017-11-30 00:03 | Emergency (ER) | payer BC ==
[~2017-11-30] VITALS: Ht 152.4 cm; Wt 52.2 kg
[~2017-11-30 00:03] MED LIST changes: -ONDA4TAB11 PO
--- OUTSIDE RECORDS SUMMARY | 2017-11-30 00:13 | XMS REPORT | Clinical Summary ---
Author Author [facility] Organization [facility] Address Unknown Phone Unavailable Care Team Providers Care Director Of Psychology Name Role Phone Enmanuel Nicolas DO PCP Source Comments Some departments are not documenting in the electronic medical record. If you do not see the information that you expected, contact Release of Information in the Health Information Management department at [phone] for further assistance in locating additional records.[facility] Allergies Not on File Current Medications Not on file Active Problems Not on file Social History Tobacco Use Types Packs/Day Years Used Date Never Assessed Sex Assigned at Date Recorded Not on file Last Filed Vital Signs Not on file Plan of Treatment Health Maintenance Due Date Last Done Comments PHYSICAL (COMPREHENSIVE) 12/14/1974 EXAM PERTUSSIS VACCINE 12/14/1978 HIV SCREENING 12/14/1982 TETANUS VACCINE 12/14/1984 CERVICAL CANCER SCREENING 12/14/1997 BREAST CANCER SCREENING 2007 INFLUENZA VACCINE 04/06/2018 Results Not on filefrom Last 3 Months
--- OUTSIDE RECORDS SUMMARY | 2017-11-30 00:14 | XMS REPORT ---
Author Author SONNY PARRISH Organization [facility] Address [address] [place] [address] Care Team Providers Care Wet Process Head Miller Name Role Phone SONNY PARRISH Unavailable PROBLEMS Type Condition ICD9-CM Code [id number] Code Onset Dates Condition Status SNOMED Code Problem Seasonal allergic rhinitis due to other allergic trigger J30.89 Active 837775614 Problem Anxiety F41.9 Active 40085136 ALLERGIES No Information ENCOUNTERS Encounter Location Date Diagnosis [facility] [address] [address] Aug, Seasonal allergic rhinitis due to other allergic trigger J30.89 [facility] [address] [address]- [address] Feb, Viral gastroenteritis A08.4 [facility] [address] [id number] Feb, Encounter for dental examination Z01.20 [facility] [address] [address]- [address] Jan, Acute non-recurrent maxillary sinusitis J01.00 [facility] [address] [address] Dec, [facility] [address] [id number] Oct, Dental examination Z01.20 [facility] [address] 32[address]- [address] Sep, Dysuria R30.0 and Acute non-recurrent maxillary sinusitis J01.00 [facility] [address] [address] Sep, [facility] [id number] [place] [id number] Aug, Dental caries K02.9 [facility] [address] [address]- [address]99 Aug, Eustachian tube dysfunction, bilateral H69.83 [facility] [id number] [place] [address] 93873- 8460 Jul, Viral gastroenteritis A08.4 and Anxiety F41.9 [facility] [id number] [place] [address] 14195- 0736 May, [facility] [address] [address]- 5119 May, [facility] [id number] [place] [address] 60649- 9368 May, [facility] [address] 6[address]- 7088 May, [facility] [id number] [place] [address] 94210- 5914 Apr, [facility] [address] [id number] Mar, Dental examination Z01.20 and Dental caries K02.9 [facility] [id number] [place] [address] 54094- 3168 Mar, [facility] [id number] [place] [address] 42186- 7678 Mar, [facility] [id number] [place] [address] 33644- 4026 Feb, [facility] [id number] [place] [address] 43113- 8016 Feb, [facility] [id number] [place] [address] 66312- 2655 Feb, Seasonal allergic rhinitis, unspecified allergic rhinitis trigger J30.2 [facility] [id number] [place] [address] 02330- 8213 Jan, [facility] [id number] [place] [address] 83384- 9790 Jan, Encounter for dental examination Z01.20 [facility] [id number] [place] [address] 24860- 3341 Dec, Encounter for dental examination Z01.20 ; Chronic cluster headache, not intractable G44.[address] [facility] [address] [id number] Dec, Dental examination Z01.20 and Dental caries K02.9 [facility] [address] 0[address]63- 2324 Dec, [facility] [address] 6[address]26- 3892 November, [facility] [address] 16177- 9770 Oct, Neuropathy G62.9 ; Migraine G43.909 ; Chronic gastric ulcer K25.7 ; Tobacco abuse Z72.0 and Tobacco abuse counseling Z71.6 [facility] [id number] [place] [address] [id number] Sep, Dental caries K02.9 [facility] [id number] [place] [address] 16414- 8558 Jun, Chronic pain syndrome G89.4 [facility] [id number] [place] [address] [id number] Apr, Encounter for dental examination Z01.20 [facility] [address] [id number] Apr, Dental examination Z01.20 [facility] [id number] [place] [address] [id number] Apr, Dental examination Z01.20 and Dental caries K02.9 [facility] [address] [place] [address]- 9136 Mar, Acute sinusitis, unspecified 461.9 [facility] [id number] [place] [address] 25000- 0746 Feb, Dysuria 788.1 and Low back strain 847.2 [facility] [id number] [place] [address] 15443- 3326 Jan, [facility] [id number] [place] [address] 88314- 3251 Jan, Acute sinusitis, unspecified 461.9 ; Esophageal reflux 530.81 ; Unspecified menopausal and postmenopausal disorder 627.9 and Abdominal pain, generalized 789.07 [facility] [id number] [place] [address] [id number] Dec, Dental examination V72.2 [facility] [id number] [place] [address] 79437- 8501 Oct, [facility] [id number] [place] [address] 41105- 8834 Oct, [facility] [id number] [place] [address] 78596- 5840 Oct, [facility] [id number] [place] [address] 33441- 4732 Sep, [facility] [id number] [place] [address] 365412- 9882 Sep, [facility] [id number] [place] [address] 98946- 2730 Sep, [facility] [id number] [place] [address] 48451- 0236 Sep, [facility] [id number] [place] [address] 574343- 8023 Aug, [facility] [address] [place] [address] 337768- 9660 Aug, [facility] [place] [facility] [address] [id number] [place] [address]- 8349 Aug, 2014 [facility] [place] [facility] [address] [id number] [place] [address]- 5006 Aug, 2014 [facility] [place] [facility] [address] [id number] [place] [address]- 1856 Aug, 2014 [facility] [place] [facility] [address] [id number] [place] [address]- 5855 Aug, 2014 [facility] [place] [facility] [address] [id number] [place] [address]- 2258 Aug, 2014 [facility] [place] [facility] [address] [id number] [place] [address]- 6767 Aug, 2014 [facility] [place] [facility] [address] [facility] [id number] [place] [address]- 6748 Aug, 2014 [facility] [place] [facility] [address] [id number] [place] [address]- 3859 Aug, 2014 [facility] [place] [facility] [address] [id number] [place] [address]- 7502 Jul, [facility] [place] [facility] [address] [facility] [id number] [place] [address]- 4138 Jul, [facility] [place] [facility] [address] [facility] [id number] [place] [address]- 2088 Jun, [facility] [place] [facility] [address] [id number] [place] [address]- 2432 Jun, [facility] [place] [facility] [address] [id number] [place] [address]- 5641 May, [facility] [place] [facility] [address] [id number] [place] [address]- 5150 May, [facility] [place] [facility] [address] [facility] [id number] [place] [address]- 1286 Apr, [facility] [place] [facility] [address] [facility] [id number] [address]- 7515 Apr, [facility] [address] [facility] [id number] [address]- 5721 Apr, [facility] [address] [facility] [id number], [place] [address]- 3002 Apr, [facility] [address] [address]- 1803 Apr, [facility] [address] [facility] [id number], [place] [address]- 9328 Mar, [facility] [address] [facility] [id number] [address]- 8069 Mar, [facility] [address] [facility] [id number] [address]- 0532 Mar, [facility] [address] [address]- 9219 Mar, [facility] [address] [address]- 8617 Mar, [facility] [address] [address]- 1609 Mar, [facility] [address] [id number] [address]- 8256 Oct, [facility] [address] [id number] [address]- 5552 Oct, [facility] [address] [id number] [address]- 5700 Oct, [facility] [address] [id number] [address]- 5536 Oct, [facility] [address] [id number] [address]- 7743 Oct, IMMUNIZATIONS No Known Immunizations SOCIAL HISTORY Never Assessed REASON FOR VISIT Refill request PLAN OF CARE VITAL SIGNS MEDICATIONS Medication Instructions Dosage Frequency Start Date End Date Duration Status Librax 5-2.5 MG Orally Twice a day 1 capsule before meals 12h Active RESULTS No Results PROCEDURES No Known procedures INSTRUCTIONS MEDICATIONS ADMINISTERED No Known Medications MEDICAL (GENERAL) HISTORY Type Description Date Medical History stomach ulcers in past Medical History Colon spasms Surgical History Obstructed bowel surgery 2011 Surgical History Partial stomach removal due to ulcers. Surgery at [facility] in [place] 10/2014 Surgical History ovarian cyst removal Surgical History Hysterectomy 2005 Surgical History appendectomy Surgical History EGD 02/06/2016 Surgical History Removed part of stomach [facility] 03/2016 Surgical History Infection removal of stomach [facility] 05/24/2016 Hospitalization History past surgeries
--- OUTSIDE RECORDS SUMMARY | 2017-11-30 00:16 | XMS REPORT ---
Author Author ALLISON HANNAH [facility] Address [address] [place] [address] Care Team Providers Care Quality Analyst/Technical Writer Name Role Phone ALLISON HANNAH Unavailable PROBLEMS Type Condition ICD9-CM Code [id number] Code Onset Dates Condition Status SNOMED Code Problem Seasonal allergic rhinitis due to other allergic trigger J30.89 Active 749436624 Problem Anxiety F41.9 Active 19251977 ALLERGIES Substance Reaction Event Type Date Status Wellbutrin nightmares/irritable Drug Allergy Feb, Active Sulfamethoxazole-Trimethoprim Body aches, tunnel vision Drug Allergy Feb Active Sudafed dizziness Drug Allergy Feb, Active Flagyl skin burning Drug Allergy Feb, Active Morphine itching Drug Allergy Feb, Active ENCOUNTERS Encounter Location Date Diagnosis [place] [id number] [address] Aug, Seasonal allergic rhinitis due to other allergic trigger J30.89 [facility] [id number] [place] [address] 79608- 2493 Feb, Viral gastroenteritis A08.4 [facility] [id number] [place] [address] [id number] Feb, Encounter for dental examination Z01.20 [facility] [id number] [place] [address] 10359- 6964 Jan, Acute non-recurrent maxillary sinusitis J01.00 [facility] [address] 15882- 7349 30 Dec, 2016 [facility] [id number] [place] [address] [id number] Oct, Dental examination Z01.20 [facility] [address] 02018- 8293 Sep, Dysuria R30.0 and Acute non-recurrent maxillary sinusitis J01.00 [facility] [address] 87219- 3124 Sep, [facility] [id number] [place] [address] [id number] Aug, Dental caries K02.9 [facility] [address] 59553- 7534 Aug, Eustachian tube dysfunction, bilateral H69.83 [facility] [address] [address] 7168 Jul, Viral gastroenteritis A08.4 and Anxiety F41.9 [facility] [address] 86502- 1295 May, [facility] [address] 66560- 8272 May, [facility] [address] 87983- 9269 May, [facility] [address] 01713- 9415 May, [facility] [address] 93671- 3149 Apr, [facility] [address] [id number] Mar, Dental examination Z01.20 and Dental caries K02.9 [facility] [address] 02772- 1154 Mar, [facility] [address] [id number]- 2917 Mar, [facility] [address] 84353- 4698 Feb, [facility] [address] 57024- 7153 Feb, [facility] [address] 44558- 4438 Feb, Seasonal allergic rhinitis, unspecified allergic rhinitis trigger J30.2 [facility] [address] 80035- 2168 Jan, [facility] [address] 26119- 5568 Jan, Encounter for dental examination Z01.20 [place] [address] 82894- 0346 Dec, Encounter for dental examination Z01.20 ; Chronic cluster headache, not intractable G44.029 and Nausea R11.0 [facility] [address] [id number] Dec, Dental examination Z01.20 and Dental caries K02.9 [place] [address] 97025- 1909 Dec, [facility] [address] 44320- 9190 November, [facility] [address] 90777- 1064 Oct, Neuropathy G62.9 ; Migraine G43.909 ; Chronic gastric ulcer K25.7 ; Tobacco abuse Z72.0 and Tobacco abuse counseling Z71.6 [facility] [address] [id number] Sep, Dental caries K02.9 [facility] [address] 76778- 1959 Jun, Chronic pain syndrome G89.4 [facility] [address] [id number] Apr, Encounter for dental examination Z01.20 [facility] [address] [id number] Apr, Dental examination Z01.20 [facility] [address] [id number] Apr, Dental examination Z01.20 and Dental caries K02.9 [facility] [id number] [place] [address] 55387- 2546 Mar, Acute sinusitis, unspecified 461.9 [facility] [id number] [place] [address] 59330- 6996 Feb, Dysuria 788.1 and Low back strain 847.2 [facility] [id number] [place] [address] 61898- 4786 Jan, [facility] [id number] [place] [address] 06846- 9306 Jan, Acute sinusitis, unspecified 461.9 ; Esophageal reflux 530.81 ; Unspecified menopausal and postmenopausal disorder 627.9 and Abdominal pain, generalized 789.07 [facility] [id number] [place] [address] [id number] Dec, Dental examination V72.2 [facility] [id number] [place] [address] 05573- 1816 28 Oct, 2014 [facility] [address] [address]- 3546 14 Oct, 2014 [facility] [address] [place] [address] 36239- 6246 Oct, [facility] [address] [place] [address] 16920- 4686 Sep, [facility] [id number] [place] [address] 24679- 8966 Sep, [facility] [address] [address]- 2546 Sep, [facility] [address] [place] [address] 47784- 4145 Sep, [facility] [place] [facility] [address] [id number] [place] [address]- 5097 Aug, 2014 [facility] [place] [facility] [address] [id number] [place] [address]- 4498 Aug, 2014 [facility] [place] [facility] [address] [facility] [id number] [place] [address]- 0658 Aug, 2014 [facility] [place] [facility] [address] [facility] [id number] [place] [address]- 6766 Aug, 2014 [facility] [place] [facility] [address] [id number] [place] [address]- 4819 Aug, 2014 [facility] [place] [facility] [address] [facility] [id number] [place] [address]- 0303 Aug, 2014 [facility] [place] [facility] [address] [facility] [id number] [place] [address]- 5165 Aug, 2014 [facility] [place] [facility] [address] [facility] [id number] [place] [address]- 7863 Aug, [facility] [place] [facility] [address] [facility] [id number] [place] [address]- 2111 Aug, [facility] [place] [facility] [address] [facility] [id number] [place] [address]- 0032 Aug, [facility] [place] [facility] [address] [facility] [id number] [place] [address]- 0762 Jul, [facility] [place] [facility] [address] [facility] [id number] [place] [address]- 7149 Jul, [facility] [place] [facility] [address] [facility] [id number] [place] [address]- 1447 Jun, [facility] [place] [facility] [address] [facility] [id number] [place] [address]- 7975 Jun, [facility] [place] [facility] [address] [facility] [id number] [place] [address]- 8888 May, [facility] [place] [facility] [address] [id number] [place] [address]- 7810 May, [facility] [place] [facility] [address] [id number] [place] [address]- 8469 Apr, [facility] [place] [facility] [address] [id number] [place] [address]- 4591 Apr, [facility] [place] [facility] [address] [id number] [place] [address]- 0306 Apr, [facility] [place] [facility] [address] [id number] [place] [address]- 9778 Apr, [facility] [place] [facility] [address] [id number] [place] [address]- 1991 Apr, [facility] [place] [facility] [address] [id number] [place] [address]- 2459 10 Mar, 2014 [facility] [place] [facility] [address] [id number] [place] [address]- 1986 10 Mar, 2013 [facility] [place] [facility] [address] [id number] [place] [address]- 5370 05 Mar, 2013 [facility] [place] [facility] [address] [id number] [place] [address]- 9660 04 Mar, 2014 [facility] [place] [facility] [address] [id number] [place] [address]- 3542 03 Mar, 2013 [facility] [place] [facility] [address] [id number] [place] [address]- 7494 03 Mar, 2013 [facility] [place] [facility] [address] [id number] [place] [address]- 5865 11 Oct, 2013 [facility] [place] [facility] [address] [id number] [place] [address]- 4117 11 Oct, 2013 [facility] [place] [facility] [address] [id number] [place] [address]- 9307 09 Oct, 2013 [facility] [place] [facility] [address] [id number] [place] [address]- 7167 Oct, [facility] [address] [facility] [id number] [place] [address]- 5890 Oct, IMMUNIZATIONS No Known Immunizations SOCIAL HISTORY Never Assessed REASON FOR VISIT prophy PLAN OF CARE Activity Details Follow Up PRN Reason:PRN VITAL SIGNS Heart Rate 93 bpm 2017-02-18 Blood pressure systolic 117 mmHg 2017-02-18 Blood pressure diastolic 83 mmHg 2017-02-18 MEDICATIONS Medication Instructions Dosage Frequency Start Date End Date Duration Status Albuterol Sulfate 90 mcg/actuation Inhalation 4 times a day 2 puffs by Inhalation route every 4-6 hours as needed PRN cough or wheezing 6h Mar, 30 days Active Zofran ODT 8 MG Orally 3 times a day 1 tablet 8h 17 Dec, 2015 Active Vitamin B-12 500 MCG Orally Once [...] twice a day 1 Tablet 12h Active Estratest ... by oral route Once a day 2 tablets 24h Active Gabapentin 600 MG TAKE ONE TABLET BY MOUTH THREE TIMES DAILY 30 Active Hydrocodone-Acetaminophen Active RESULTS No Results PROCEDURES Procedure Date Ordered Result Body Site PERIODIC ORAL EXAMINATION Feb 18, 2017 INTRAORL-PERIAPICAL 1 FILM [id number] Feb 18, 2017 PANORAMIC FILM SEE ALSO CODE [id number] Feb 18, 2017 INTRAORL-PERIAPICAL EA ADD FILM Feb 18, 2017 INTRAORL-PERIAPICAL EA ADD FILM Feb 18, 2017 INTRAORL-PERIAPICAL EA ADD FILM Feb 18, 2017 INTRAORL-PERIAPICAL EA ADD FILM Feb 18, 2017 INTRAORL-PERIAPICAL EA ADD FILM Feb 18, 2017 INSTRUCTIONS MEDICATIONS ADMINISTERED No Known Medications MEDICAL (GENERAL) HISTORY Type Description Date Medical History stomach ulcers in past Medical History Colon spasms Surgical History Obstructed bowel surgery 2011 Surgical History Partial stomach removal due to ulcers. Surgery at [facility] in [place] 10/2014 Surgical History ovarian cyst removal Surgical History Hysterectomy 2006 Surgical History appendectomy Surgical History EGD 02/06/2016 Surgical History Removed part of stomach [facility] 03/2016 Surgical History Infection removal of stomach [facility] 05/24/2016 Hospitalization History past surgeries
--- OUTSIDE RECORDS SUMMARY | 2017-11-30 00:16 | XMS REPORT ---
Author Author SONNY PARRISH Organization [facility] Address [address] [place] [address] Care Team Providers Care Director Appointment Name Role Phone SONNY PARRISH Unavailable PROBLEMS Type Condition ICD9-CM Code LRQ00-HQ Code Onset Dates Condition Status SNOMED Code Problem Seasonal allergic rhinitis due to other allergic trigger J30.89 Active 075787085 Problem Anxiety F41.9 Active [id number] ALLERGIES Substance Reaction Event Type Date Status Wellbutrin nightmares/irritable Drug Allergy Jan, Active Sulfamethoxazole-Trimethoprim Body aches, tunnel vision Drug Allergy Jan Active Sudafed dizziness Drug Allergy Jan, Active Flagyl skin burning Drug Allergy Jan, Active Morphine itching Drug Allergy Jan, Active ENCOUNTERS Encounter Location Date Diagnosis [address] [address] Aug, Seasonal allergic rhinitis due to other allergic trigger J30.89 [place] [address] [address] Feb, Viral gastroenteritis A08.4 [facility] [address] [id number] Feb, Encounter for dental examination Z01.20 [facility] [address] [address] Jan, Acute non-recurrent maxillary sinusitis J01.00 [facility] [address] [address] Dec, [facility] [address] [id number] Oct, Dental examination Z01.20 [facility] [address] [address] Sep, Dysuria R30.0 and Acute non-recurrent maxillary sinusitis J01.00 [facility] [address] [address] Sep, [facility] [address] [place] [id number] [place] [id number] Aug, Dental caries K02.9 [facility] [address] [address] Aug, Eustachian tube dysfunction, bilateral H69.83 [facility] [address] [address] Jul, Viral gastroenteritis A08.4 and Anxiety F41.9 [facility] [address] [address] May, [facility] [address] [address] May, [facility] [address] [address] May, [facility] [address] [address] May, [facility] [address] [address] Apr, [facility] [address] [id number] Mar, Dental examination Z01.20 and Dental caries K02.9 [facility] [address] [address] Mar, [facility] [address] [address] Mar, [facility] [address] [address] Feb, [facility] [address] [address] Feb, [facility] [address] [place] [id number] [place] [address] Feb, Seasonal allergic rhinitis, unspecified allergic rhinitis trigger J30.2 [facility] [address] [place] [id number] [place] [address] Jan, [facility] [address] [address] Jan, Encounter for dental examination Z01.20 [facility] [address] [address] Dec, Encounter for dental examination Z01.20 ; Chronic cluster headache, not intractable G44.029 and Nausea R11.0 [facility] [address] [id number] Dec, Dental examination Z01.20 and Dental caries K02.9 [facility] [address] [place] [id number] [place] [address] Dec, [facility] [address] [address] November, [facility] [address] [place] [id number] [place] [address] Oct, Neuropathy G62.9 ; Migraine G43.909 ; Chronic gastric ulcer K25.7 ; Tobacco abuse Z72.0 and Tobacco abuse counseling Z71.6 [facility] [address] [place] [id number] [place] [id number] Sep, Dental caries K02.9 [facility] [address] [place] [id number] [place] [address] Jun, Chronic pain syndrome G89.4 [facility] [address] [id number] Apr, Encounter for dental examination Z01.20 [facility] [address] [id number] Apr, Dental examination Z01.20 [facility] [address] [id number] Apr, Dental examination Z01.20 and Dental caries K02.9 [facility] [address] [place] [id number] [place] [address] Mar, Acute sinusitis, unspecified 461.9 [facility] [address] [place] [id number] [place] [address] Feb, Dysuria 788.1 and Low back strain 847.2 [facility] [address] [place] [id number] [place] [address] 25[address] Jan, [facility] [address] [place] [id number] [place] [address] Jan, Acute sinusitis, unspecified 461.9 ; Esophageal reflux 530.81 ; Unspecified menopausal and postmenopausal disorder 627.9 and Abdominal pain, generalized 789.07 [facility] [address] [place] [id number] Dec, Dental examination V72.2 [facility] [address] [place] [id number] [place] [address] Oct, [facility] [address] [place] [id number] [place] [address] Oct, [facility] [address] [place] [id number] [place] [address] Oct, [facility] [address] [place] [address] Sep, [facility] [address] [place] [id number] [place] [address] Sep, [facility] [address] [place] [id number] [place] [address]- [address] Sep, [facility] [address] [place] [id number] [place] [address] Sep, [facility] [place] [facility] [address] [id number] [place] [address] Aug, 2014 [facility] [place] [facility] [address] [id number] [place] [address] Aug, 2014 [facility] [place] [facility] [address] [facility] [id number] [place] [address] Aug, 2014 [facility] [place] [facility] [address] [id number] [place] [address] Aug, 2014 [facility] [place] [facility] [address] [id number] [place] [address] Aug, 2014 [facility] [place] [facility] [address] [id number] [place] [address]- [address] Aug, 2014 [facility] [place] [facility] [address] [id number] [place] [address] Aug, 2014 [facility] [place] [facility] [address] [id number] [place] [address]- [address] Aug, [facility] [place] [facility] [address] [id number] [place] [address] Aug, [facility] [place] [facility] [address] [facility] [id number] [place] [address] Aug, [facility] [place] [facility] [address] [facility] [id number] [place] [address] Jul, [facility] [place] [facility] [address] [facility] [id number] [place] [address] Jul, [facility] [place] [facility] [address] [id number] [place] Jun, [facility] [place] [facility] [address] [id number] [place] [address] Jun, [facility] [place] [facility] [address] [facility] [id number] [place] [address] May, [facility] [place] [facility] [address] [id number] [place] [address] May, [facility] [place] [facility] [address] [id number] [place] [address] Apr, [facility] [place] [facility] [address] [id number] [place] [address] Apr, [facility] [place] [facility] [address] [id number] [place] [address] Apr, [facility] [place] [facility] [address] [id number] [place] [address]- [address] Apr, [facility] [place] [facility] [address] [id number] [place] [address]- [address] Apr, [facility] [place] [facility] [address] [id number] [place] [address]- [address] Mar, [facility] [place] [facility] [address] [id number] [place] [address] 10 Mar, 2013 [facility] [place] [facility] [address] [id number] [place] [address]- [address] 05 Mar, 2013 [facility] [place] [facility] [address] [id number] [place] [address]- [address] 04 Mar, 2014 [facility] [place] [facility] [address] [id number] [place] [address]- [address] 03 Mar, 2013 [facility] [place] [facility] [address] [id number] [place] [address]- [address] 03 Mar, 2013 [facility] [place] [facility] [address] [id number] [place] [address]- [address] Oct, [facility] [place] [facility] [address] [id number] [place] [address]- 4471 Oct, [facility] [place] [facility] [address] [id number] [place] [address]- [address] Oct, [facility] [place] [facility] [address] [id number] [place] [address]- [address] Oct, [facility] [address] [facility] [id number] [place] [address] Oct, IMMUNIZATIONS No Known Immunizations SOCIAL HISTORY Never Assessed REASON FOR VISIT Medication Mgmt - Has been having frequent sinus headaches, pressure in her nose and behind eyes, today it hurts so bad she has vomitted. - Justo MELGAR PLAN OF CARE VITAL SIGNS Height 60 in 2017-01-31 Weight 110.6 lbs 2017-01-31 Temperature 98.3 degrees Fahrenheit 2017-01-31 Heart Rate 72 bpm 2017-01-31 Respiratory Rate 18 2017-01-31 BMI 21.60 kg/m2 2017-01-31 Blood pressure systolic 117 mmHg 2017-01-31 Blood pressure diastolic 79 mmHg 2017-01-31 MEDICATIONS Medication Instructions Dosage Frequency Start Date End Date Duration Status Iron 325 (65 Fe) MG Orally twice a day 1 tablet 12h Active Gabapentin 600 MG TAKE ONE TABLET BY MOUTH THREE TIMES DAILY 30 Active Vitamin B-12 500 MCG Orally Once a day 2 tablets 24h Active Estratest ... by oral route Once a day 2 tablets 24h Active Zofran ODT 8 MG Orally 3 times a day 1 tablet 8h Dec, Active PredniSONE 20 mg Orally Once a day 2 tablets 24h Jan, Feb, 05 days Active Zithromax Z-Santos 250 MG Orally Once a day 2 tablets on the first day, then 1 tablet daily for 4 days 24h Jan, 2 Feb, 2017 5 day(s) Active Ortho-Cyclen (28) 0.25-35 MG-MCG Orally Once a day 1 tablet 24h 30 days Active Albuterol Sulfate 90 mcg/actuation Inhalation 4 times a day 2 puffs by Inhalation route every 4-6 hours as needed PRN cough or wheezing 6h Mar, 30 days Active Fluconazole 200 MG TAKE ONE TABLET BY MOUTH ONCE A WEEK Oct, 63 Active Cyclobenzaprine HCl 10 MG TAKE ONE TABLET BY MOUTH THREE TIMES DAILY 30 Active Ativan 1 MG Orally Once a day 1 tablet at bedtime as needed 24h Jul, Active Protonix 40 mg Orally twice a day 1 Tablet 12h Active Librax 5-2.5 MG Orally Twice a day 1 capsule before meals 12h Active RESULTS No Results PROCEDURES No Known procedures INSTRUCTIONS MEDICATIONS ADMINISTERED No Known Medications MEDICAL (GENERAL) HISTORY Type Description Date Medical History stomach ulcers in past Medical History Colon spasms Surgical History Obstructed bowel surgery 2011 Surgical History Partial stomach removal due to ulcers. Surgery at [facility] in [place] 10/2014 Surgical History ovarian cyst removal Surgical History Hysterectomy 2005 Surgical History appendectomy Surgical History EGD 02/06/2016 Surgical History Removed part of stomach [facility] 03/2016 Surgical History Infection removal of stomach [facility] 05/24/2016 Hospitalization History past surgeries
[2017-11-30] MEDS ORDERED: FAMOTIDINE 20 MG (PEPCID) TABLET PO STA (00:41)
[2017-11-30] MEDS ORDERED: LACTATED RINGERS 1,000 ML IV STA (00:41)
[2017-11-30] MEDS ORDERED: ANTACID SUSP 30 ML UDC (MYLANTA) PO ONE (00:45)
[2017-11-30] MEDS ORDERED: DIATRIZOATE MEGLUM/SODIUM 37% 120 ML (GASTROGRAFIN) PO ONE (00:45)
[2017-11-30] MEDS ORDERED: LIDOCAINE 2% VISCOUS 15 ML UDC PO ONE (00:45)
[2017-11-30] MEDS ORDERED: KETOROLAC 30 MG/ML VIAL IVP ONE (00:45)
--- NOTE | 2017-11-30 00:49 | ED Abdominal Pain ---
General Stated Complaint: AB PAIN Source of Information: Patient Exam Limitations: No Limitations History of Present Illness Date Seen by Provider: November 30, 2017 Time Seen by Provider: 00:38 Initial Comments The patient presents to the ER by private conveyance with a chief complaint for 5 days now she's had progressively worsening abdominal pain gets worse when she walks or drinks fluids. She describes the pain as a twisting sensation and pain in her belly. She's had a history of 2 surgeries of her stomach for peptic ulcer disease. She does not use steroids or NSAIDs. She has also had hysterectomy, gallbladder and appendectomy. She has also had surgeries for adhesiolysis. She has no history of diverticulosis. She's having no diarrhea or constipation. She took a hydrocodone earlier and that helped her pain for a couple hours. She's having no fevers chills or nausea presently although she's had nausea earlier when the pain gets really bad. She is on gabapentin for neuropathic abdominal pain. Allergies and Home Medications Allergies Coded Allergies: morphine (Verified Allergy, Severe, ITCHING & FLUSHING, PT HAS RECEIVED HYDROCODONE IN THE PAST, 08/31/17) Influenza Virus Vaccines (Unverified Allergy, Unknown, 08/31/17) metronidazole (Verified Allergy, Unknown, 08/31/17) Sulfa (Sulfonamide Antibiotics) (Verified Adverse Reaction, Unknown, ) Home Medications Albuterol Sulfate 8.5 Gm Hfa.aer.ad, 1-2 PUFF IH Q4H PRN for cough/wheeze/SOA Prescribed by: SONNY KRISHNAN on 08/05/16 1529 Calcium Carbonate/Vitamin D3 1 Each Tablet, 1 TAB PO BID, (Reported) Dicyclomine HCl 20 Mg Tablet, 20 MG PO QID Prescribed by: SANGITA ZAMORA on 06/23/16 1057 Estrogen,Sylvie/Me-Testosterone 1 Each Tablet, 2 TAB PO DAILY, (Reported) LAST FILLED 03/20/16 #60 Famotidine 20 Mg Tablet, 20 MG PO BID Prescribed by: MARCELO KEEN on 08/31/172028 Ferrous Sulfate 325 Mg Tablet, 325 MG PO BID, (Reported) Gabapentin 300 Mg Capsule, 600 MG PO TID, (Reported) TAKES 2 (300 MG) CAPSULES Hydrocodone/Chlorphen P-Stirex 480 Ml Nyasia.er.12h, 5 ML PO Q12H PRN for cough/ congestion Prescribed by: SONNY KRISHNAN on 08/05/16 1529 Nitrofurantoin Monohyd/M-Cryst 100 Mg Capsule, 1 TAB PO BID Prescribed by: MARCELO KEEN on 08/31/172028 Norgestimate-Ethinyl Estradiol 1 Each Tablet, 1 TAB PO DAILY, (Reported) TK 1 T PO D CONTINUOUSLY OF ACTIVE PILLS ONLY OR UTD / LAST FILLED 01/19/16 # 84 Ondansetron 8 Mg Tab.rapdis, 8 MG PO Q6H PRN for NAUSEA/VOMITING-1ST LINE Prescribed by: MARCELO KEEN on 08/31/172028 Pantoprazole Sodium 40 Mg Tablet.dr, 40 MG PO BID, (Reported) Patient Home Medication List Home Medication List Reviewed: Yes Review of Systems Constitutional: No chills, No diaphoresis, No fever EENTM: No Blurred Vision, No Double Vision Respiratory: Denies Cough, Denies Shortness of Air Cardiovascular: Denies Chest Pain, Denies Palpitations, Denies Syncope Gastrointestinal: See HPI, Abdominal Pain; Denies Constipated, Denies Diarrhea , Denies Nausea Genitourinary: Denies Burning, Denies Discharge Musculoskeletal: No back pain, No joint pain Skin: No pruritus, No rash Psychiatric/Neurological: Denies Headache, Denies Numbness Past Zqlzhiv-Rwfxcd-Lxndge Hx Patient Social History Alcohol Use: Denies Use Recreational Drug Use: No Smoking Status: Former Smoker Former Smoker, Quit: Apr 24, 2016 2nd Hand Smoke Exposure: No Recent Foreign Travel: No Contact w/Someone Who Travel: No Recent Hopitalizations: No (GI BLEED) Immunizations Up To Date Tetanus Booster (TDap): More than 5yrs Seasonal Allergies Seasonal Allergies: Yes Past Medical History Surgeries: Yes (partial gastrectomy) Abdominal, Hysterectomy Respiratory: No Cardiac: No Neurological: Yes Headaches /Migraines 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: No 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, 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 Sexually Transmitted Disease: No HIV/AIDS: No Gastrointestinal: Yes Gastrointestinal Bleed, Obstructive Bowel, Ulcer Musculoskeletal: Yes Scoliosis Endocrine: Yes (hypoglycemia) Loss of Vision: Denies Hearing Impairment: Denies Cancer: No Psychosocial: No Integumentary: No Blood Disorders: Yes (anemia) Adverse Reaction/Blood Tranf: No Family Medical History Cancer of colon GRANDMOTHER Family history: Diabetes mellitus 19 FATHER Family history: Hypertension 19 MOTHER Stroke 19 MOTHER No Pertinent Family Hx Physical Exam Vital Signs Capillary Refill : General Appearance: WD/WN, mild distress HEENT: PERRL/EOMI, pharynx normal Neck: non-tender, full range of motion, supple, normal inspection Respiratory: chest non-tender, lungs clear, normal breath sounds, no respiratory distress, no accessory muscle use Cardiovascular: normal peripheral pulses, regular rate, rhythm Peripheral Pulses: 2+ Dorsalis Pedis (R), 2+ Left Dors-Pedis (L) Gastrointestinal: abnormal bowel sounds (Constant, hyperactive all 4 quadrants) ; No rebound; tenderness (especially suprapubic and right lower quadrant) Extremities: no pedal edema, no calf tenderness, normal capillary refill Neurologic/Psychiatric: alert, oriented x 3 Skin: normal color, warm/dry Progress/Results/Core Measures Results/Orders Lab Results Laboratory Tests Test 11/30/17 00:25 Range/Units White Blood Count 14.8 H 4.3-11.0 10^3/uL Red Blood Count 3.74 L 4.35-5.85 10^6/uL Hemoglobin 10.3 L 11.5-16.0 G/DL Hematocrit 32 L 35-52 % Mean Corpuscular Volume 85 80-99 FL Mean Corpuscular Hemoglobin 28 25-34 PG Mean Corpuscular Hemoglobin Concent 32 32-36 G/DL Red Cell Distribution Width 16.2 H 10.0-14.5 % Platelet Count 503 H 130-400 10^3/uL Mean Platelet Volume 9.7 7.4-10.4 FL Neutrophils (%) (Auto) 79 H 42-75 % Lymphocytes (%) (Auto) 12 12-44 % Monocytes (%) (Auto) 8 0-12 % Eosinophils (%) (Auto) 1 0-10 % Basophils (%) (Auto) 0 0-10 % Neutrophils # (Auto) 11.7 H 1.8-7.8 X 10^3 Lymphocytes # (Auto) 1.7 1.0-4.0 X 10^3 Monocytes # (Auto) 1.2 H 0.0-1.0 X 10^3 Eosinophils # (Auto) 0.1 0.0-0.3 10^3/uL Basophils # (Auto) 0.0 0.0-0.1 10^3/uL Neutrophils % (Manual) 72 % Lymphocytes % (Manual) 18 % Monocytes % (Manual) 8 % Eosinophils % (Manual) 2 % Basophils % (Manual) 0 % Band Neutrophils 0 % Hypochromasia MODERATE Anisocytosis SLIGHT Macrocytosis SLIGHT Elliptocytes SLIGHT Urine Color YELLOW Urine Clarity CLEAR Urine pH 6.5 5-9 Urine Specific [place] 1.010 L 1.016-1.022 Urine Protein 1+ H NEGATIVE Urine Glucose (UA) NEGATIVE NEGATIVE Urine Ketones NEGATIVE NEGATIVE Urine Nitrite NEGATIVE NEGATIVE Urine Bilirubin NEGATIVE NEGATIVE Urine Urobilinogen NORMAL NORMAL MG/DL Urine Leukocyte Esterase 1+ H NEGATIVE Urine RBC (Auto) 1+ H NEGATIVE Urine RBC RARE /HPF Urine WBC RARE /HPF Urine Squamous Epithelial Cells 2-5 /HPF Urine Crystals NONE /LPF Urine Bacteria TRACE /HPF Urine Casts NONE /LPF Urine Mucus NEGATIVE /LPF Urine Culture Indicated NO Sodium Level 144 135-145 MMOL/L Potassium Level 3.3 L 3.6-5.0 MMOL/L Chloride Level 112 H 98-107 MMOL/L Carbon Dioxide Level 22 21-32 MMOL/L Anion Gap 10 5-14 MMOL/L Blood Urea Nitrogen 9 7-18 MG/DL Creatinine 0.63 0.60-1.30 MG/DL Estimat Glomerular Filtration Rate > 60 BUN/Creatinine Ratio 14 Glucose Level 116 H 70-105 MG/DL Calcium Level 8.2 L 8.5-10.1 MG/DL Magnesium Level 1.9 1.8-2.4 MG/DL Total Bilirubin < 0.1 L 0.1-1.0 MG/DL Aspartate Amino Transf (AST/SGOT) 11 5-34 U/L Alanine Aminotransferase (ALT/SGPT) 8 0-55 U/L Alkaline Phosphatase 67 40-136 U/L Total Protein 6.0 L 6.4-8.2 GM/DL Albumin 2.8 L 3.2-4.5 GM/DL Lipase 53 8-78 U/L Urine Opiates Screen NEGATIVE NEGATIVE Urine Oxycodone Screen NEGATIVE NEGATIVE Urine Methadone Screen NEGATIVE NEGATIVE Urine Propoxyphene Screen NEGATIVE NEGATIVE Urine Barbiturates Screen NEGATIVE NEGATIVE Ur Tricyclic Antidepressants Screen NEGATIVE NEGATIVE Urine Phencyclidine Screen NEGATIVE NEGATIVE Urine Amphetamines Screen NEGATIVE NEGATIVE Urine Methamphetamines Screen POSITIVE H NEGATIVE Urine Benzodiazepines Screen POSITIVE H NEGATIVE Urine Cocaine Screen NEGATIVE NEGATIVE Urine Cannabinoids Screen POSITIVE H NEGATIVE My Orders Orders - JANI,PRIMO J Ct Abdomen/Pelvis W (11/30/17 00:41) Saline Lock/Iv-Start (11/30/17 00:41) Cbc With Automated Diff (11/30/17 00:41) Comprehensive Metabolic Panel (11/30/17 00:41) Drug Screen Stat (Urine) (11/30/17 00:41) Lipase (11/30/17 00:41) Magnesium (11/30/17 00:41) Ua Culture If Indicated (11/30/17 00:41) Lidocaine 2% Viscous 15 Ml (Xylocaine Vi (11/30/17 00:45) Famotidine Tablet (Pepcid Tablet) (11/30/17 00:41) Antacid Suspension (Mylanta Suspension (11/30/17 00:45) Lactated Ringers (Lr 1000 Ml Iv Solution (11/30/17 00:41) Saline Lock/Iv-Start (11/30/17 00:41) Diatrizoate Meglum/Sodium 37% (Gastrogra (11/30/17 00:45) Ketorolac Injection (Toradol Injection) (11/30/17 00:45) Manual Differential (11/30/17 00:25) Fentanyl Injection (Sublimaze Injection (11/30/17 03:00) Iohexol Injection (Omnipaque 350 Mg/Ml 1 (11/30/17 03:30) Ns (Ivpb) (Sodium Chloride 0.9%) (11/30/17 03:30) Medications Given in ED Current Medications Medications Dose Ordered Sig/Flora Route Start Time Stop Time Status Last Admin Dose Admin Al Hydrox/Mg Hydrox/Simethicone 30 ml ONCE ONCE PO 11/30/17 00:45 11/30/17 00:46 DC 11/30/17 01:23 30 ML Diatrizoate Meglum/ Diatrizoate Sod 120 ml ONCE ONCE PO 11/30/17 00:45 11/30/17 00:46 DC 11/30/17 03:26 10 ML Iohexol 100 ml ONCE ONCE IV 11/30/17 03:30 11/30/17 03:31 DC 11/30/17 03:24 100 ML Ketorolac Tromethamine 15 mg ONCE ONCE IVP 11/30/17 00:45 11/30/17 00:46 DC 11/30/17 01:22 15 MG Lidocaine HCl 15 ml ONCE ONCE PO 11/30/17 00:45 11/30/17 00:46 DC 11/30/17 01:23 15 ML Sodium Chloride 250 ml ONCE ONCE IV 11/30/17 03:30 11/30/17 03:31 DC 11/30/17 03:24 80 ML Progress Progress Note #1: Time: 00:[address] abdomen pelvis with contrast to evaluate the bowels for possible obstruction versus diverticulitis etc. We'll get a lipase give her some pain medicine. There are some fluids. Please GI cocktail see if this is involving the stomach. She is not having any nausea right now. Progress Note #2: Time: 03:34 Progress Note Fairly nonspecific CT findings but in the use of a case of methamphetamine her white count elevation could be due to either enterocolitis or methamphetamine use. We will go ahead and choose to cover her with ciprofloxacin. She has Zofran at home she can use. Her symptoms are fairly mild and well controlled at this point. She is willing to go outpatient and follow up at her appointment on this December 11 with her primary care doctor. Diagnostic Imaging Diagonstic Imaging: CT (with IV and oral contrast) Plain Films/CT/US/NM/MRI: abdomen, pelvis Comments Thickening of the terminal ileum and ascending colon may be related to under distention. Nonspecific enterocolitis is not excluded. No bowel obstruction, free fluid or free air. Mesenteric lymph nodes are nonspecific. Reviewed: Reviewed [place] Hawk Study (stat rad), Reviewed by Me Departure Impression Primary Impression: Enterocolitis Additional Impression: Methamphetamine abuse Disposition: HOME, SELF-CARE Condition: Improved Departure-Patient Inst. Decision time for Depature: 03:35 Referrals: RITU VANCE DO (PCP/Family) Primary Care Physician Patient Instructions: Drug Abuse and Drug Addiction (DC) Add. Discharge Instructions: Start the ciprofloxacin twice a day for the next 5 days. If your symptoms get worse she can return to the ER otherwise plan to follow up at your December 11, 2017 appointment with your primary care provider. Drink plenty of fluids. If you have nausea you can use the Zofran 1 tablet every 6 hours as needed. You can use Tylenol 1000 mg every 8 hours and/or ibuprofen 800 mg every 8 hours as well as heating pads for your pain and discomfort. Stay mobile and move around the house. Scripts Ondansetron (Ondansetron Odt) 4 Mg Tab.rapdis 4 MG PO Q6H PRN for NAUSEA/VOMITING, #8 TAB 0 Refills Prov: PRIMO GUNTER 11/30/17 Ciprofloxacin HCl (Ciprofloxacin HCl) 500 Mg Tablet 500 MG PO BID for 5 Days, #10 TAB 0 Refills Prov: PRIMO GUNTER 11/30/17 PRIMO UGNTER November 30, 2017 00:49
[2017-11-30 00:50] LABS: BASOPHILS % (AUTO) 0 % (0-10); BILIRUBIN,URINE NEGATIVE (NEGATIVE); CLARITY,URINE CLEAR; COLOR,URINE YELLOW; EOSINOPHILS # (AUTO) 0.1 10^3/uL (0.0-0.3); EOSINOPHILS % (AUTO) 1 % (0-10); GLUCOSE, URINE (UA) NEGATIVE (NEGATIVE); HEMATOCRIT 32 % (35-52); HEMOGLOBIN 10.3 G/DL (11.5-16.0); KETONES,URINE NEGATIVE (NEGATIVE); LEUKOCYTE ESTERASE ,URINE 1+ (NEGATIVE); LYMPHOCYTES # (AUTO) 1.7 X 10^3 (1.0-4.0); LYMPHOCYTES % (AUTO) 12 % (12-44); MEAN CORPUSCULAR HEMOGLOBIN 28 PG (25-34); MEAN CORPUSCULAR HGB CONC 32 G/DL (32-36); MEAN CORPUSCULAR VOLUME 85 FL (80-99); MEAN PLATELET VOLUME 9.7 FL (7.4-10.4); MONOCYTES # (AUTO) 1.2 X 10^3 (0.0-1.0); MONOCYTES % (AUTO) 8 % (0-12); NEUTROPHILS # (AUTO) 11.7 X 10^3 (1.8-7.8); NEUTROPHILS % (AUTO) 79 % (42-75); NITRITE,URINE NEGATIVE (NEGATIVE); PH,URINE 6.5 (5-9); PLATELET COUNT 503 10^3/uL (130-400); PROTEIN,URINE 1+ (NEGATIVE); RED BLOOD COUNT 3.74 10^6/uL (4.35-5.85); RED CELL DISTRIBUTION WIDTH 16.2 % (10.0-14.5); UROBILINOGEN,URINE NORMAL (NORMAL); WHITE BLOOD COUNT 14.8 10^3/uL (4.3-11.0)
[2017-11-30 01:01] LABS: BACTERIA,URINE TRACE /HPF; RBC,URINE RARE /HPF; WBC,URINE RARE /HPF
[2017-11-30 01:07] LABS: BAND NEUTROPHILS 0 %; BASOPHILS % (MANUAL) 0 %; EOSINOPHILS % (MANUAL) 2 %; HYPOCHROMASIA MODERATE; LYMPHOCYTES % (MANUAL) 18 %; MONOCYTES % (MANUAL) 8 %; NEUTROPHILS % (MANUAL) 72 %
[2017-11-30 01:08] LABS: ALANINE AMINOTRANSFERASE 8 U/L (0-55); ALBUMIN 2.8 GM/DL (3.2-4.5); ALKALINE PHOSPHATASE 67 U/L (40-136); ANISOCYTOSIS SLIGHT; BILIRUBIN,TOTAL < 0.1 MG/DL (0.1-1.0); BUN/CREATININE RATIO 14; CALCIUM 8.2 MG/DL (8.5-10.1); CARBON DIOXIDE 22 MMOL/L (21-32); CHLORIDE 112 MMOL/L (98-107); CREATININE SERUM 0.63 MG/DL (0.60-1.30); ELLIPT/OVALOCYTES SLIGHT; GFR ESTIMATED > 60; GLUCOSE 116 MG/DL (70-105); LIPASE 53 U/L (8-78); MAGNESIUM 1.9 MG/DL (1.8-2.4); POTASSIUM 3.3 MMOL/L (3.6-5.0); SODIUM 144 MMOL/L (135-145)
[2017-11-30 01:09] LABS: AMPHETAMINE SCREEN, URINE NEGATIVE (NEGATIVE); BENZODIAZEPINES SCREEN URINE POSITIVE (NEGATIVE); COCAINE SCREEN URINE NEGATIVE (NEGATIVE); METHAMPHETAMINE SCREEN URINE S POSITIVE (NEGATIVE)
[2017-11-30 01:10] LABS: BARBITURATE SCREEN URINE NEGATIVE (NEGATIVE); CANNABINOID SCREEN, URINE POSITIVE (NEGATIVE); METHADONE STAT NEGATIVE (NEGATIVE); OPIATE SCREEN URINE NEGATIVE (NEGATIVE); OXYCODONE STAT NEGATIVE (NEGATIVE); PROPOXYPHENE STAT NEGATIVE (NEGATIVE); TRICYCLIC ANTIDEPRESSANTS SCRE NEGATIVE (NEGATIVE)
[2017-11-30] MEDS ORDERED: fentaNYL INJECTION 100 MCG/2 ML AMP IVP ONE (03:00)
[2017-11-30] MEDS ORDERED: IOHEXOL 350 MG/ML 100 ML (OMNIPAQUE 350) VIAL IV ONE (03:30)
[2017-11-30] MEDS ORDERED: NS 250 ML (IVPB) BAG IV ONE (03:30)
[2017-11-30] MEDS ORDERED: CIPR500T4 PO (03:37)
[2017-11-30] MEDS ORDERED: ONDA4TAB11 PO (03:37)
[2017-11-30 03:56] VITALS: BP 118/69
--- NOTE | 2017-11-30 07:17 | Diagnostic Imaging Report ---
PROCEDURE: CT abdomen and pelvis with contrast. TECHNIQUE: Multiple contiguous axial images were obtained through the abdomen and pelvis after administration of intravenous contrast. INDICATION: Abdominal pain with nausea x5 days. History of gastric bypass surgery. Also with history of hysterectomy and appendectomy and previous bowel obstruction. CORRELATION STUDY: 08/31/2017 FINDINGS: LOWER THORAX: Clear. LIVER: Upper limits normal size, otherwise unremarkable. GALLBLADDER: Present and unremarkable. No bile duct dilatation. SPLEEN: Unremarkable. PANCREAS: Unremarkable. ADRENAL GLANDS: Unremarkable. KIDNEYS: Normal configuration. No calcification or obstruction. ABDOMINAL AORTA: Unremarkable, nonaneurysmal. GASTROINTESTINAL TRACT: There is apparent thickening of the terminal ileum as well as the ascending colon. Findings are suspect for focal ileitis and colitis. Findings compatible to gastric bypass surgery. No finding to suggest underlying obstruction. No abscess or free intraperitoneal air. Trace amount of pelvic fluid is present. URINARY BLADDER: Unremarkable. REPRODUCTIVE: Uterus is absent. OSSEOUS STRUCTURES: Scoliotic curvature of the thoracolumbar spine with advanced degenerative change about the lumbar spine with disc space narrowing osteophyte formation. OTHER: None. IMPRESSION: 1. Abnormal thickening of the terminal ileum and ascending colon, likely reflective of underlying enterocolitis. No evidence for bowel obstruction. A preliminary report was provided by [employer] Dictated by: Dictated on workstation # [id number]
== END 2017-11-30 03:56 | disposition home or self-care (01) ==
LOC: EDUNIT# 00:03 → ER 00:05
DX: K52.9 Noninfective gastroenteritis and colitis, unspecified (principal); G43.909 Migraine, unspecified, not intractable, without status migrainosus; D64.9 Anemia, unspecified; F15.10 Other stimulant abuse, uncomplicated; Z98.890 Other specified postprocedural states; Z87.891 Personal history of nicotine dependence; Z90.710 Acquired absence of both cervix and uterus; Z87.42 Personal history of other diseases of the female genital tract; Z87.19 Personal history of other diseases of the digestive system; Z87.39 Personal history of other diseases of the musculoskeletal system and connective tissue; Z88.5 Allergy status to narcotic agent; Z88.2 Allergy status to sulfonamides; Z88.7 Allergy status to serum and vaccine; Z88.1 Allergy status to other antibiotic agents
CPT/HCPCS: 36415; 74177; 80053; 80306; 81000; 83690; 83735; 85007; 85027; 96374

== ENCOUNTER → 2017-12-02 | Outpatient (CLI) | payer BC ==
[~2017-12-02] MED LIST changes: +ONDA4TAB11 PO
--- NOTE | 2017-12-02 09:14 | Diagnostic Imaging Report ---
EXAMINATION: Magnetic resonance imaging of the left knee without intravenous contrast DATE: December 02, 2017. COMPARISON: Left knee radiographs 09/09/2017. INDICATION: 51-year-old female, left knee pain. TECHNIQUE: Multiplanar, multisequence non contrast enhanced MR imaging was accomplished. FINDINGS: MENISCI: There is signal in the body and posterior horn of the medial meniscus which appears to contact the inferior articulating surface on coronal PD sequence image 11. This is best classified as low to intermediate probability for tear. There is no parameniscal cyst. The lateral meniscus is intact. LIGAMENTS AND TENDONS: The anterior and posterior cruciate ligaments are intact. The medial collateral ligament is intact. The iliotibial band, mid third lateral capsular ligament, fibular collateral ligament, biceps femoris tendon and conjoined tendon are intact. The quadriceps tendon and patella ligament are intact. JOINT: There is abnormal signal at the bone cartilage interface of the median patellar ridge with minimal underlying subchondral edema. This may potentially correlate with an area of chondromalacia. The medial and lateral compartment cartilage is intact. There is no knee joint effusion, prominent synovitis, or intra-articular body. BONE: There is unremarkable bone marrow signal. Specifically, negative for fracture, osteomyelitis, osteonecrosis, or marrow replacing process. BURSAE AND SOFT TISSUES: There is a small slitlike Spaulding's cyst cyst. There is mild nonspecific prepatellar subcutaneous edema. IMPRESSION: 1. Signal within the body and posterior horn of the medial meniscus which contacts the inferior articulating surface on a single image and is best classified as a low to intermediate probability for meniscal tear. No parameniscal cyst. 2. Intact lateral meniscus. 3. Focal area of abnormal signal in the cartilage of the median patellar ridge without definite overlying surface defect and minimal underlying subchondral degenerative related marrow edema. This may correlate with an area of chondromalacia. No knee joint effusion or synovitis. 4. No acute fracture, bone contusion, or evidence of osteonecrosis. 5. Small slitlike Spaulding's cyst. And Dictated by: Dictated on workstation # [id number]
== END ==
LOC: RAD 06:49
PROVIDERS: ATTEND Orthopaedic Surgery
DX: M71.22 Synovial cyst of popliteal space [Baker], left knee (principal)
CPT/HCPCS: 73721

== ENCOUNTER 2018-07-16 14:31 | Emergency (ER) | payer BC ==
[~2018-07-16] VITALS: Ht 160 cm; Wt 65.8 kg
[~2018-07-16 14:31] MED LIST changes: -OXYC-202 PO; +OXYC1TAB12 PO
--- OUTSIDE RECORDS SUMMARY | 2018-07-16 14:43 | XMS REPORT | Clinical Summary ---
Author Author [facility] Organization [facility] Address Unknown Phone Unavailable Care Team Providers Care Insulator Tester Name Role Phone Enmanuel Nicolas DO PCP Source Comments Some departments are not documenting in the electronic medical record. If you do not see the information that you expected, contact Release of Information in the Health Information Management department at [phone] for further assistance in locating additional records.[facility] Allergies Not on File Medications Not on file Active Problems Not on file Social History Date Tobacco Use Types Packs/Day Years Used Never Assessed Sex Assigned at Date Recorded Not on file Industry Job Start Date Occupation Not on file Not on file Not on file Travel End Travel History Travel Start No recent travel history available. Last Filed Vital Signs Not on file Plan of Treatment Health Maintenance Due Date Last Done Comments PHYSICAL (COMPREHENSIVE) 12/14/1974 EXAM HIV SCREENING 12/14/1982 DTAP/TDAP VACCINES ( - 12/14/1985 Tdap) CERVICAL CANCER SCREENING 12/14/1997 BREAST CANCER SCREENING 2007 COLORECTAL CANCER 12/14/2017 SCREENING SHINGLES RECOMBINANT 12/14/2017 VACCINE (1 of 2) INFLUENZA VACCINE 02/04/2018 Results Not on filefrom Last 3 Months
--- OUTSIDE RECORDS SUMMARY | 2018-07-16 14:44 | XMS REPORT ---
Author Author SONNY PARRISH Organization [facility] Address [address] [place] [address] Care Team Providers Care User Experience Developer Name Role Phone SONNY PARRISH Unavailable PROBLEMS Type Condition ICD9-CM Code LGH18-BE Code Onset Dates Condition Status SNOMED Code Problem Hyperlipidemia E78.5 Active 95255732 Problem Adolescent idiopathic scoliosis of thoracic region M41.124 Active 190316729 Problem Seasonal allergic rhinitis due to other allergic trigger J30.89 Active 032619075 Problem Anxiety F41.9 Active 49602829 ALLERGIES No Information ENCOUNTERS Encounter Location Date Diagnosis [facility] [address] [address] May, [facility] [address] [address] Apr, Bronchitis J40 [facility] [address] [address] Apr, [facility] [address] [address] Apr, Anxiety F41.9 [facility] [address] [address] Apr, Acute cystitis without hematuria N30.00 [facility] [address] [address] Mar, [facility] [address] [address] Mar, Hyperlipidemia E78.5 ; Hyperglycemia R73.9 ; Bronchitis J40 and Acute bacterial conjunctivitis of left eye H10.32 [facility] [address] [address] Mar, [facility] [address] [address] Feb, Acute bacterial conjunctivitis of left eye H10.32 ; Anxiety F41.9 and Adolescent idiopathic scoliosis of thoracic region M41.124 [facility] [address] [address] Jan, Bronchitis J40 [facility] [address] [address] November, [place] [address] [address] Aug, Seasonal allergic rhinitis due to other allergic trigger J30.89 [place] [address] [address] Feb, Viral gastroenteritis A08.4 [facility] [address] [id number] Feb, Encounter for dental examination Z01.20 [place] [address] [address] Jan, Acute non-recurrent maxillary sinusitis J01.00 [place] [address] [address] Dec, [facility] [address] [place] [id number] [place] [id number] Oct, Dental examination Z01.20 [facility] [address] [address] Sep, Dysuria R30.0 and Acute non-recurrent maxillary sinusitis J01.00 [facility] [address] [address] Sep, [facility] [address] [id number] Aug, Dental caries K02.9 [facility] [address] [place] [id number] Aug, Eustachian tube dysfunction, bilateral H69.83 [facility] [address] [place] [id number] [place] [address] Jul, Viral gastroenteritis A08.4 and Anxiety F41.9 [facility] [address] [place] [id number] [place] [address] May, [facility] [address] [address] May, [facility] [address] [place] [id number] [place] [address] May, [facility] [address] [address] May, [facility] [address] [place] [id number] [place] [address] Apr, [facility] [address] [id number] Mar, Dental examination Z01.20 and Dental caries K02.9 [facility] [address] [address] Mar, [facility] [address] [place] [id number] [place] [address] Mar, [facility] [address] [place] [id number] [place] [address] Feb, [facility] [address] [place] [id number] [place] [address] Feb, [facility] [address] [place] [id number] [place] [address] Feb, Seasonal allergic rhinitis, unspecified allergic rhinitis trigger J30.2 [facility] [address] [place] [id number] [place] [address] Jan, [facility] [address] [address] Jan, Encounter for dental examination Z01.20 [facility] [address] [place] [id number] [place] [address] 17 Dec, 2015 Encounter for dental examination Z01.20 ; Chronic cluster headache, not intractable G44.029 and Nausea R11.0 [facility] [address] [id number] Dec, Dental examination Z01.20 and Dental caries K02.9 [facility] [address] [address] Dec, [facility] [address] [address] November, [facility] [address] [address] Oct, Neuropathy G62.9 ; Migraine G43.909 ; Chronic gastric ulcer K25.7 ; Tobacco abuse Z72.0 and Tobacco abuse counseling Z71.6 [facility] [address] [place] [id number] [place] [id number] Sep, Dental caries K02.9 [facility] [address] [address] Jun, Chronic pain syndrome G89.4 [facility] [address] [place] [id number] [place] [id number] Apr, Encounter for dental examination Z01.20 [facility] [address] [id number] Apr, Dental examination Z01.20 [facility] [address] [place] [id number] [place] [id number] Apr, Dental examination Z01.20 and Dental caries K02.9 [facility] [address] [place] [id number] [place] [address] 04 Mar, 2015 Acute sinusitis, unspecified 461.9 [facility] [address] [address] Feb, Dysuria 788.1 and Low back strain 847.2 [facility] [address] [place] [id number] [place] [address] 594863- [address] Jan, [facility] [address] [place] [id number] [place] [address] Jan, Acute sinusitis, unspecified 461.9 ; Esophageal reflux 530.81 ; Unspecified menopausal and postmenopausal disorder 627.9 and Abdominal pain, generalized 789.07 [facility] [id number] [place] [id number] Dec, Dental examination V72.2 [facility] [address] [place] [id number] [place] [address] 28 Oct, 2014 [facility] [address] [place] [id number] [place] [address] Oct, [facility] [address] [place] [id number] [place] [address]- [address] Oct, [facility] [address] [place] [id number] [place] [address]- [address] Sep, [facility] [address] [place] [id number] [place] [address] Sep, [facility] [address] [address] Sep, [facility] [address] [place] [id number] [place] [address]- [address] Sep, [facility] [id number] [place] [address]- [address] Aug, [facility] [address] [place] [id number] [place] [address] 230618- 30[address] Aug, [facility] [address] [address] Aug, [facility] [address] [place] [id number] [place] [address] Aug, 2014 [facility] [place] [facility] [address] [id number] [place] [address] Aug, 2014 [facility] [place] [facility] [address] [id number] [place] [address] Aug, 2014 [facility] [place] [facility] [address] [id number] [place] [address] Aug, 2014 [facility] [place] [facility] [address] [id number] [place] [address] Aug, 2014 [facility] [place] [facility] [address] [id number] [place] [address] Aug, 2014 [facility] [place] [facility] [address] [facility] [id number] [place] [address]- [address] Aug, 2014 [facility] [place] [facility] [address] [facility] [id number] [place] [address] Jul, [facility] [place] [facility] [address] [facility] [id number] [place] [address]- [address] Jul, [facility] [place] [facility] [address] [facility] [id number] [place] [address] 1999 Jun, [facility] [place] [facility] [address] [facility] [id number] [place] Jun, [facility] [place] [facility] [address] [facility] [id number] [place] [address] May, [facility] [place] [facility] [address] [facility] [id number] [place] [address] May, [facility] [place] [facility] [address] [facility] [id number] [place] [address]- [address] Apr, [facility] [place] [facility] [address] [facility] [id number] [place] [address]- 2546 Apr, [facility] [place] [facility] [address] [facility] [id number] [place] [address]- 4[address] Apr, [facility] [address] [facility] [id number] [address] Apr, [facility] [address] [address] Apr, [facility] [address] [place] [id number] [address] Mar, [facility] [address] [facility] [id number], [place] [address] Mar, [facility] [address] [facility] [id number] [address] Mar, [facility] [address] [address] Mar, [facility] [address] [address] Mar, [facility] [address] [address] Mar, [facility] [address] [address] Oct, [facility] [address] [address] Oct, [facility] [address] [id number], [place] [address] Oct, [facility] [address] [place] [address] [id number], [place] [address] Oct, [facility] [address] [place] [id number], [place] [address] Oct, IMMUNIZATIONS No Known Immunizations SOCIAL HISTORY Never Assessed REASON FOR VISIT Eye Exam PLAN OF CARE VITAL SIGNS MEDICATIONS Unknown Medications RESULTS No Results PROCEDURES No Known procedures INSTRUCTIONS MEDICATIONS ADMINISTERED No Known Medications MEDICAL (GENERAL) HISTORY Type Description Date Medical History stomach ulcers in past Medical History Colon spasms Surgical History Obstructed bowel surgery 2011 Surgical History Partial stomach removal due to ulcers. Surgery at [facility] in [place] 10/2014 Surgical History ovarian cyst removal Surgical History Hysterectomy 2006 Surgical History appendectomy Surgical History EGD 02/06/2016 Surgical History Removed part of stomach [facility] 03/2016 Surgical History Infection removal of stomach [facility] 05/24/2016 Hospitalization History past surgeries
--- OUTSIDE RECORDS SUMMARY | 2018-07-16 14:44 | XMS REPORT ---
Author Author SONNY PARRISH Organization [facility] Address [address] [place] [address] Care Team Providers Care Auto Hiker Name Role Phone SONNY PARRISH Unavailable PROBLEMS Type Condition ICD9-CM Code RPZ84-OZ Code Onset Dates Condition Status SNOMED Code Problem Hyperlipidemia E78.5 Active 87818190 Problem Adolescent idiopathic scoliosis of thoracic region M41.124 Active 164861092 Problem Seasonal allergic rhinitis due to other allergic trigger J30.89 Active 140988669 Problem Anxiety F41.9 Active 10656376 ALLERGIES No Information ENCOUNTERS Encounter Location Date Diagnosis [place] [address] [address] Jul, [place] [address] [address] Jun, [facility] [address] [address] Jun, Seasonal allergic rhinitis due to other allergic trigger J30.89 [place] [address] [place] [id number] [place] [address]67- 6693 May, Seasonal allergic rhinitis due to other allergic trigger J30.89 [place] [address] [address] Apr, Bronchitis J40 [facility] [address] [address] Apr, [facility] [address] [address]- [address] Apr, Anxiety F41.9 [facility] [address] [address]- [address] Apr, Acute cystitis without hematuria N30.00 [facility] [address] [place] [id number] [place] [address] 28 Mar, 2018 [facility] [address] [address]- [address] 19 Mar, 2018 Hyperlipidemia E78.5 ; Hyperglycemia R73.9 ; Bronchitis J40 and Acute bacterial conjunctivitis of left eye H10.32 [facility] [address] [address]- [address] 11 Mar, 2018 [facility] [address] [address]- [address] Feb, Acute bacterial conjunctivitis of left eye H10.32 ; Anxiety F41.9 and Adolescent idiopathic scoliosis of thoracic region M41.124 [facility] [address] [address]- [address] Jan, Bronchitis J40 [facility] [address] [address]- 3[address] November, [facility] [address] 16[address]- 39[address] Aug, Seasonal allergic rhinitis due to other allergic trigger J30.89 [facility] [address] [address]- [address] Feb, Viral gastroenteritis A08.4 [facility] [address] [id number] Feb, Encounter for dental examination Z01.20 [facility] [address] [place] [id number] [place] [address]28- 5158 Jan, Acute non-recurrent maxillary sinusitis J01.00 [facility] [address] [address]- [address] 30 Dec, 2016 [facility] [address] [id number] Oct, Dental examination Z01.20 [facility] [address] 8[address]48- [address] Sep, Dysuria R30.0 and Acute non-recurrent maxillary sinusitis J01.00 [facility] [address] 36096- 1331 Sep, [facility] [address] [place] [id number] [place] [address] [id number] Aug, Dental caries K02.9 [facility] [address] 94056- 3536 Aug, Eustachian tube dysfunction, bilateral H69.83 [facility] [address] 847060- 5105 Jul, Viral gastroenteritis A08.4 and Anxiety F41.9 [facility] [address] 09375- 4465 May, [facility] [address] 79376- 9056 May, [facility] [address] 12488- 3484 May, [facility] [address] 56175- 3485 May, [facility] [address] [place] [id number] [place] [address] 08763- 5424 Apr, [facility] [address] [place] [id number] [place] [address] [id number] Mar, Dental examination Z01.20 and Dental caries K02.9 [facility] [address] [place] [id number] [place] [address] 08151- 1786 Mar, [facility] [address] 83515- 2990 Mar, [facility] [address] [place] [id number] [place] [address] 64088- 4094 Feb, [facility] [address] [place] [id number] [address] Feb, [facility] [address] [place] [id number] [place] [address] 75785- 6154 Feb, Seasonal allergic rhinitis, unspecified allergic rhinitis trigger J30.2 [facility] [address] [place] [id number] [place] [address] 96289- 8800 Jan, [facility] [address] 84794- 9985 Jan, Encounter for dental examination Z01.20 [facility] [address] 99211- 9366 17 Dec, 2015 Encounter for dental examination Z01.20 ; Chronic cluster headache, not intractable G44.029 and Nausea R11.0 [facility] [address] [id number] Dec, Dental examination Z01.20 and Dental caries K02.9 [facility] [address] 88604- 1462 Dec, [place] [address] 87142- 0745 November, [facility] [address] [place] [id number] [place] [address] 00339- 2384 Oct, Neuropathy G62.9 ; Migraine G43.909 ; Chronic gastric ulcer K25.7 ; Tobacco abuse Z72.0 and Tobacco abuse counseling Z71.6 [facility] [address] [place] [id number] [place] [address] [id number] Sep, Dental caries K02.9 [facility] [address] 65937- 9479 Jun, Chronic pain syndrome G89.4 [facility] [address] [place] [id number] [place] [address] [id number] Apr, Encounter for dental examination Z01.20 [facility] [address] [id number] Apr, Dental examination Z01.20 [facility] [address] [id number] [id number] Apr, Dental examination Z01.20 and Dental caries K02.9 [facility] [address] [place] [address] 23625- 2546 Mar, Acute sinusitis, unspecified 461.9 [facility] [address] [place] [id number] [place] [address] 68046- 1936 Feb, Dysuria 788.1 and Low back strain 847.2 [facility] [address] [place] [id number] [place] [address] 63902- 0906 Jan, [facility] [address] [place] [id number] [place] [address] 42426- 9426 Jan, Acute sinusitis, unspecified 461.9 ; Esophageal reflux 530.81 ; Unspecified menopausal and postmenopausal disorder 627.9 and Abdominal pain, generalized 789.07 [facility] [address] [id number] Dec, Dental examination V72.2 [facility] [id number] [place] [address] 58681- 3786 28 Oct, 2014 [facility] [address] [place] [address] 74610- 2916 14 Oct, 2014 [facility] [address] Oct, [facility] [id number] [place] [address] 330690- 9313 Sep, [facility] [address] [place] [id number] [place] [address] 357382- 2116 Sep, [facility] [address] [address]- [address] Sep, [facility] [id number] [place] [address] 29139- 1158 Sep, [facility] [place] [facility] [address] [id number] [place] [address]- 3228 Aug, 2014 [facility] [place] [facility] [address] [facility] [id number] [place] [address]- 8256 Aug, 2014 [facility] [place] [facility] [address] [facility] [id number] [place] [address]- 3886 Aug, 2014 [facility] [place] [facility] [address] [facility] [id number] [place] [address]- 2833 Aug, 2014 [facility] [place] [facility] [address] [facility] [id number] [place] [address]- 4768 Aug, 2014 [facility] [place] [facility] [address] [facility] [id number] [place] [address]- 0041 Aug, 2014 [facility] [place] [facility] [address] [place] [id number] [place] [address]- 1039 Aug, 2014 [facility] [place] [facility] [address] [facility] [id number] [place] [address]- 7073 Aug, [facility] [place] [facility] [address] [facility] [id number] [place] [address]- 4269 Aug, 2014 [facility] [place] [facility] [address] [facility] [id number] [place] [address]- 7573 Aug, [facility] [place] [facility] [address] [facility] [id number] [place] [address]- 5760 Jul, [facility] [place] [facility] [address] [facility] [id number] [address]- 3[address] Jul, [facility] [place] [facility] [address] [facility] [id number] [place] [address]- 8510 Jun, [facility] [place] [facility] [address] [facility] [id number] [place] [address]- 4086 Jun, [facility] [place] [facility] [address] [facility] [id number], [place] [address]- 7360 May, [facility] [place] [facility] [address] [id number] [place] [address]- 1871 May, [facility] [place] [facility] [address] [id number] [place] [address]- 6385 Apr, [facility] [place] [facility] [address] [id number] [place] [address]- 9975 Apr, [facility] [place] [facility] [address] [id number] [place] [address]- 2033 Apr, [facility] [place] [facility] [address] [id number] [place] [address]- 3397 Apr, [facility] [place] [facility] [address] [id number] [place] [address]- 0437 Apr, [facility] [place] [facility] [address] [id number] [place] [address]- 7600 Mar, [facility] [place] [facility] [address] [id number] [place] [address]- 5598 10 Mar, 2014 [facility] [place] [facility] [address] [id number] [place] [address]- 3580 05 Mar, 2014 [facility] [place] [facility] [address] [id number] [place] [address]- 6962 04 Mar, 2014 [facility] [place] [facility] [address] [id number] [place] [address]- 7082 03 Mar, 2013 [facility] [place] [facility] [address] [id number] [place] [address]- 8071 03 Mar, 2013 [facility] [place] [facility] [address] [id number] [place] [address]- 9720 Oct, [facility] [place] [facility] [address] [id number] [place] [address]- 1637 Oct, [facility] [place] [facility] [address] [id number] [place] [address]- 3940 09 Oct, 2013 [facility] [place] [facility] [address] [id number] [place] [address]- 6686 Oct, [facility] [address] [facility] [id number] [place] [address]- 0136 Oct, IMMUNIZATIONS No Known Immunizations SOCIAL HISTORY Never Assessed REASON FOR VISIT refill request PLAN OF CARE VITAL SIGNS MEDICATIONS Unknown Medications RESULTS No Results PROCEDURES No Known procedures INSTRUCTIONS MEDICATIONS ADMINISTERED No Known Medications MEDICAL (GENERAL) HISTORY Type Description Date Medical History stomach ulcers in past Medical History Colon spasms Surgical History Obstructed bowel surgery 2011 Surgical History Partial stomach removal due to ulcers. Surgery at [facility] in [place] 10/2014 Surgical History ovarian cyst removal Surgical History Hysterectomy 2005 Surgical History appendectomy Surgical History EGD 02/06/2016 Surgical History Removed part of stomach [facility] 03/2016 Surgical History Infection removal of stomach [facility] 05/24/2016 Hospitalization History past surgeries
--- OUTSIDE RECORDS SUMMARY | 2018-07-16 14:44 | XMS REPORT ---
Author Author SONNY PARRISH Organization [facility], [place] Address [address] [place] [address] Care Team Providers Care Superintendent Refuse Disposal Name Role Phone SONNY PARRISH Unavailable PROBLEMS Type Condition ICD9-CM Code HEF92-PI Code Onset Dates Condition Status SNOMED Code Problem Hyperlipidemia E78.5 Active 88453193 Problem Adolescent idiopathic scoliosis of thoracic region M41.124 Active 937923689 Problem Seasonal allergic rhinitis due to other allergic trigger J30.89 Active 238530953 Problem Anxiety F41.9 Active 66293001 ALLERGIES Substance Reaction Event Type Date Status Wellbutrin nightmares/irritable Drug Allergy Jun, Active Sulfamethoxazole-Trimethoprim Body aches, tunnel vision Drug Allergy Jun Active Sudafed dizziness Drug Allergy Jun, Active Flagyl skin burning Drug Allergy Jun, Active Morphine itching Drug Allergy Jun, Active ENCOUNTERS Encounter Location Date Diagnosis [facility] [place] [id number] [place] [address]2486- 2043 Jul, [facility] [place] [id number] [place] [address] 88550- 4907 Jun, [facility] [place] [id number] [place] [address] 81648- 4453 Jun, Seasonal allergic rhinitis due to other allergic trigger J30.89 [facility] [place] [id number] [place] [address] 65274- 2668 May, Seasonal allergic rhinitis due to other allergic trigger J30.89 [facility] [place] [id number] [place] [address] 73395- 1023 Apr, Bronchitis J40 [facility] [place] [id number] [place] [address] 40464- 3366 Apr, [facility] [place] [id number] [place] [address] 79797- 4789 17 Apr, 2018 Anxiety F41.9 [facility] [place] [address] [address]11- 2303 Apr, Acute cystitis without hematuria N30.00 [facility] [address] [address] 28 Mar, 2018 [facility] [place] [address] 09625- 0688 Mar, Hyperlipidemia E78.5 ; Hyperglycemia R73.9 ; Bronchitis J40 and Acute bacterial conjunctivitis of left eye H10.32 [facility] [place] [address] 73392- 2061 11 Mar, 2018 [place] [address] 71589- 6451 Feb, Acute bacterial conjunctivitis of left eye H10.32 ; Anxiety F41.9 and Adolescent idiopathic scoliosis of thoracic region M41.124 [facility] [place] [address] 68371- 8806 Jan, Bronchitis J40 [facility] [place] [address] 96758- 5234 November, [facility] [place] [address] 59328- 2675 Aug, Seasonal allergic rhinitis due to other allergic trigger J30.89 [facility] [place] [address] 76260- 5850 Feb, Viral gastroenteritis A08.4 [facility] [address] [id number] Feb, Encounter for dental examination Z01.20 [facility] [place] [address] 36441- 6310 Jan, Acute non-recurrent maxillary sinusitis J01.00 [facility] [place] [address] 27337- 5118 Dec, [facility] [id number] [place] [address] [phone] Oct, Dental examination Z01.20 [facility] [place] [address] 988053- 2188 Sep, Dysuria R30.0 and Acute non-recurrent maxillary sinusitis J01.00 [facility] [place] [address] 79147- 8770 Sep, [facility] [address] [id number] Aug, Dental caries K02.9 [facility] [place] [address] 00945- 1360 Aug, Eustachian tube dysfunction, bilateral H69.83 [facility] [place] [address] 71131- 6926 Jul, Viral gastroenteritis A08.4 and Anxiety F41.9 [facility] [place] [address] 39783- 4638 May, [facility] [place] [address] 88007- 0242 May, [facility] [place] [address] 87579- 8275 May, [facility] [place] [address] 94570- 4476 May, [facility] [place] [address] 84096- 1514 Apr, [facility] [id number] [place] [address] [id number] 20 Mar, 2016 Dental examination Z01.20 and Dental caries K02.9 [facility] [place] [address] 80169- 1566 Mar, [facility] [place] [id number] [place] [address] 64896- 9575 Mar, [facility] [place] [id number] [place] [address] 76109- 5858 Feb, [facility] [place] [id number] [place] [address] 72107- 3345 Feb, [facility] [place] [address] 32577- 0926 Feb, Seasonal allergic rhinitis, unspecified allergic rhinitis trigger J30.2 [facility] [place] [address] 14849- 5335 Jan, [facility] [place] [id number] [place] [address] 86876- 6415 Jan, Encounter for dental examination Z01.20 [place] [id number] [place] [address] 20645- 2109 Dec, Encounter for dental examination Z01.20 ; Chronic cluster headache, not intractable G44.029 and Nausea R11.0 [facility] [id number] [place] [address] [id number] Dec, Dental examination Z01.20 and Dental caries K02.9 [place] [id number] [place] [address] 50113- 1931 Dec, [facility] [place] [id number] [place] [address] 54279- 2662 November, [facility] [place] [id number] [place] [address] 53597- 4389 Oct, Neuropathy G62.9 ; Migraine G43.909 ; Chronic gastric ulcer K25.7 ; Tobacco abuse Z72.0 and Tobacco abuse counseling Z71.6 [facility] [id number] [place] [address] [id number] Sep, Dental caries K02.9 [place] [id number] [place] [address] 20506- 9099 Jun, Chronic pain syndrome G89.4 [facility] [address] [place] [address] [id number] Apr, Encounter for dental examination Z01.20 [facility] [id number] [place] [address] [id number] Apr, Dental examination Z01.20 [facility] [id number] [place] [address] [id number] Apr, Dental examination Z01.20 and Dental caries K02.9 [facility] [place] [id number] [place] [address] 05516- 0736 Mar, Acute sinusitis, unspecified 461.9 [facility] [place] [address] 99115- 6696 Feb, Dysuria 788.1 and Low back strain 847.2 [facility] [place] [address] 91557- 9091 Jan, [facility] [place] [id number] [place] [address] 719905- 4452 Jan, Acute sinusitis, unspecified 461.9 ; Esophageal reflux 530.81 ; Unspecified menopausal and postmenopausal disorder 627.9 and Abdominal pain, generalized 789.07 [facility] [id number] [place] [address] [id number] Dec, Dental examination V72.2 [facility] [place] [id number] [place] [address] 460840- 5112 Oct, [facility] [place] [id number] [place] [address] [id number] 8644 Oct, [facility] [place] [address] 631269- 3823 Oct, [facility] [place] [id number] [place] [address] 57599- 3126 Sep, [facility] [place] [address] 72939- 7501 Sep, [facility] [place] [facility] [address] [id number] [place] [address]- 2786 Sep, [facility] [place] [facility] [address] [id number] [place] [address]- 9365 Sep, [facility] [place] [facility] [address] [id number] [place] [address]- 6226 Aug, 2014 [facility] [place] [facility] [address] [id number] [place] [address]- 3367 Aug, 2014 [facility] [place] [facility] [address] [id number] [place]- 6589 Aug, 2014 [facility] [place] [facility] [address] [id number] [place] [address]- 7615 Aug, 2014 [facility] [place] [facility] [address] [facility] [id number] [place] [address]- 4294 Aug, 2014 [facility] [place] [facility] [address] [facility] [id number] [place] [address]- 4311 Aug, 2014 [facility] [place] [facility] [address] [facility] [id number] [place] [address]- 9190 Aug, 2014 [facility] [place] [facility] [address] [facility] [id number] [place] [address]- 7378 Aug, [facility] [place] [facility] [address] [facility] [id number] [place] [address] 2548 Aug, [facility] [place] [facility] [address] [facility] [id number] [place] [address] 2545 Aug, [facility] [place] [facility] [address] [id number] [place] [address]- 4009 Jul, [facility] [place] [facility] [address] [facility] [id number] [place] [address]- 1135 Jul, [facility] [place] [facility] [address] [facility] [id number] [place] [address]- 1877 Jun, [facility] [place] [facility] [address] [id number] [place] [address]- 5661 Jun, [facility] [place] [facility] [address] [id number] [place] [address]- 4367 May, [facility] [place] [facility] [address] [id number] [place]- 4926 May, [facility] [place] [facility] [address] [id number] [place] [address]- 2849 Apr, [facility] [place] [facility] [address] [id number] [place] [address]- 6435 Apr, [facility] [place] [facility] [address] [id number] [place] [address]- 0572 Apr, [facility] [place] [facility] [address] [id number] [place] [address]- 7029 Apr, [facility] [place] [facility] [address] [id number] [place] [address]- 8211 Apr, [facility] [place] [facility] [address] [id number] [place] [address]- 1485 10 Mar, 2014 [facility] [place] [facility] [address] [id number] [place] [address]- 9779 10 Mar, 2014 [facility] [place] [facility] [address] [id number] [place] [address]- 3817 05 Mar, 2014 [facility] [place] [facility] [address] [id number] [place] [address]- 3939 04 Mar, 2014 [facility] [place] [facility] [address] [id number] [place] [address]- 5056 03 Mar, 2014 [facility] [place] [facility] [address] [id number] [place] [address]- 1555 03 Mar, 2014 [facility] [place] [facility] [address] [id number] [place] [address]- 2449 Oct, [facility] [place] [facility] [address] [id number], [place] [address]- 4311 Oct, [facility] [place] [address] [facility] [id number], [place] [address]- 6252 Oct, [facility] [place] [address] [facility] [id number], [place] [address]- 4969 Oct, [facility] [place] [address] [facility] [id number], [place] [address]- 5043 Oct, IMMUNIZATIONS No Known Immunizations SOCIAL HISTORY Never Assessed REASON FOR VISIT Ever -Jose MELGAR PLAN OF CARE VITAL SIGNS Height 60 in 2018-06-17 Weight 113.1 lbs 2018-06-17 Temperature 98.0 degrees Fahrenheit 2018-06-17 Heart Rate 115 bpm 2018-06-17 Respiratory Rate 20 2018-06-17 Oximetry 98 % 2018-06-17 BMI 22.09 kg/m2 2018-06-17 Blood pressure systolic 118 mmHg 2018-06-17 Blood pressure diastolic 68 mmHg 2018-06-17 MEDICATIONS Medication Instructions Dosage Frequency Start Date End Date Duration Status Protonix 40 mg Orally 2 times a day 1 Tablet 12h Active Albuterol Sulfate 90 mcg/actuation Inhalation 4 times a day 2 puffs by Inhalation route every 4-6 hours as needed PRN cough or wheezing 6h Mar, 30 days Active Vitamin B-12 500 MCG Orally Once a day 2 tablets 24h Active Zofran ODT 8 mg Orally 3 times a day 1 tablet 8h 10 Active Ativan 1 MG Orally Once a day 1 tablet at bedtime as needed 24h Jul, 28 days Active Gabapentin 600 MG 1 tablet 8h Active Librax 5-2.5 MG Orally Twice a day 1 capsule before meals 12h 30 Active Mononessa 0.25-35 MG-MCG Orally Once a day 1 tablet 24h Active Fluconazole 200 MG TAKE ONE TABLET BY MOUTH ONCE A WEEK 63 Active Chandler 10-325 MG Orally 3 times a day 1 tablet as needed 8h Jun, Active Singulair 10 MG Orally Once a day 1 tablet 24h Jun, 30 day(s) Active Symbicort 160-4.5 MCG/ACT Inhalation Twice a day 2 puffs 12h Active RESULTS No Results PROCEDURES No Known procedures INSTRUCTIONS MEDICATIONS ADMINISTERED No Known Medications MEDICAL (GENERAL) HISTORY Type Description Date Medical History stomach ulcers in past Medical History Colon spasms Surgical History Obstructed bowel surgery 2011 Surgical History Partial stomach removal due to ulcers. Surgery at [facility] in [place] 10/2014 Surgical History ovarian cyst removal Surgical History Hysterectomy 2005 Surgical History appendectomy Surgical History EGD 02/06/2016 Surgical History Removed part of stomach [facility] 03/2016 Surgical History Infection removal of stomach [facility] 05/24/2016 Hospitalization History past surgeries
--- OUTSIDE RECORDS SUMMARY | 2018-07-16 14:44 | XMS REPORT ---
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 Name Role Phone GARRY LAURA Unavailable PROBLEMS Type Condition ICD9-CM Code VDO99-MV Code Onset Dates Condition Status SNOMED Code Problem Hyperlipidemia E78.5 Active 19920939 Problem Adolescent idiopathic scoliosis of thoracic region M41.124 Active 213436878 Problem Seasonal allergic rhinitis due to other allergic trigger J30.89 Active 150795049 Problem Anxiety F41.9 Active 60482990 ALLERGIES Substance Reaction Event Type Date Status Wellbutrin nightmares/irritable Drug Allergy Apr, Active Sulfamethoxazole-Trimethoprim Body aches, tunnel vision Drug Allergy Apr Active Sudafed dizziness Drug Allergy Apr, Active Flagyl skin burning Drug Allergy Apr, Active Morphine itching Drug Allergy Apr, Active ENCOUNTERS Encounter Location Date Diagnosis [facility] [address] [address] May, [facility] [id number] [place] [address] [id number]- 2613 Apr, Bronchitis J40 [facility] [id number] [place] [address] 77920- 9929 Apr, [facility] [id number] [place] [address] 36515- 1535 Apr, Anxiety F41.9 [facility] [id number] [place] [address] 32821- 8702 Apr, Acute cystitis without hematuria N30.00 [facility] [id number] [place] [address] 6[address]10 -[address] Mar, [facility] [address] [place] [address] Mar, Hyperlipidemia E78.5 ; Hyperglycemia R73.9 ; Bronchitis J40 and Acute bacterial conjunctivitis of left eye H10.32 [facility] [id number] [place] [address] 13951- 5726 Mar, [facility] [address] [address] Feb, Acute bacterial conjunctivitis of left eye H10.32 ; Anxiety F41.9 and Adolescent idiopathic scoliosis of thoracic region M41.124 [facility] [address] [address] Jan, Bronchitis J40 [facility] [address] [address]- [address] November, [facility] [address] [address]- [address] Aug, Seasonal allergic rhinitis due to other allergic trigger J30.89 [facility] [id number] [place] [address] 93948- 7235 Feb, Viral gastroenteritis A08.4 [facility] [address] [id number] Feb, Encounter for dental examination Z01.20 [facility] [id number] [place] [address] 50268- 6090 Jan, Acute non-recurrent maxillary sinusitis J01.00 [facility] [id number] [place] [address] 61997- 3585 Dec, [facility] [address] [id number] Oct, Dental examination Z01.20 [facility] [address] [address]- [address] Sep, Dysuria R30.0 and Acute non-recurrent maxillary sinusitis J01.00 [facility] [address] [place] [address] Sep, [facility] [id number] [place] [address] [id number] Aug, Dental caries K02.9 [facility] [id number] [place] [address] 15179- 0898 Aug, Eustachian tube dysfunction, bilateral H69.83 [facility] [address] [address] Jul, Viral gastroenteritis A08.4 and Anxiety F41.9 [facility] [address] [address]- [address] May, [facility] [address] [address]- [address] May, [facility] [address] 7[address]- [address] May, [facility] [id number] [place] [address] 21311- 9557 May, [facility] [id number] [place] [address] 84969- 0408 Apr, [facility] [id number] [place] [address] [id number] Mar, Dental examination Z01.20 and Dental caries K02.9 [facility] [id number] [place] [address] 73680- 1555 Mar, [facility] [id number] [place] [address] 65192- 5350 Mar, [facility] [id number] [place] [address] 17671- 2467 Feb, [facility] [id number] [place] [address] 701698- 8170 Feb, [facility] [id number] [place] [address] 70991- 5674 Feb, Seasonal allergic rhinitis, unspecified allergic rhinitis trigger J30.2 [facility] [id number] [place] [address] 57729- 8595 Jan, [facility] [id number] [place] [address] 08530- 1602 Jan, Encounter for dental examination Z01.20 [facility] [address] [address]- [address] Dec, Encounter for dental examination Z01.20 ; Chronic cluster headache, not intractable G44.029 and Nausea R11.0 [facility] [address] [id number] Dec, Dental examination Z01.20 and Dental caries K02.9 [facility] [address] 25[address]- [address] Dec, [facility] [address] 22758- 9[address] November, [facility] [id number] [place] [address] 76511- 5627 Oct, Neuropathy G62.9 ; Migraine G43.909 ; Chronic gastric ulcer K25.7 ; Tobacco abuse Z72.0 and Tobacco abuse counseling Z71.6 [facility] [id number] [place] [address] [id number] Sep, Dental caries K02.9 [facility] [id number] [place] [address] 50687- 1540 Jun, Chronic pain syndrome G89.4 [facility] [address] [id number] Apr, Encounter for dental examination Z01.20 [facility] [id number] [place] [address] [id number] Apr, Dental examination Z01.20 [facility] [address] [id number] Apr, Dental examination Z01.20 and Dental caries K02.9 [facility] [id number] [place] [address] 22152- 4773 Mar, Acute sinusitis, unspecified 461.9 [facility] [id number] [place] [address] 498627- 2406 Feb, Dysuria 788.1 and Low back strain 847.2 [facility] [address] [address]- [address] Jan, [facility] [id number] [place] [address] 91752- 5938 Jan, Acute sinusitis, unspecified 461.9 ; Esophageal reflux 530.81 ; Unspecified menopausal and postmenopausal disorder 627.9 and Abdominal pain, generalized 789.07 [facility] [id number] [place] [address] [id number] Dec, Dental examination V72.2 [facility] [id number] [place] [address] 67821- 4250 Oct, [facility] [id number] [place] [address] 92581- 9471 Oct, [facility] [id number] [place] [address] 32932- 0270 Oct, [facility] [id number] [place] [address] 40225- 0889 Sep, [facility] [id number] [place] [address] 93040- 0830 Sep, [facility] [id number] [place] [address] 275280- 4911 Sep, [facility] [id number] [place] [address] 706389- 7564 Sep, [facility] [id number] [place] [address] 70887- 5476 Aug, [facility] [place] [facility] [address] [id number] [place] [address]- 1585 Aug, 2014 [facility] [place] [facility] [address] [id number] [place] [address]- 7726 Aug, 2014 [facility] [place] [facility] [address] [id number] [place] [address] Aug, 2014 [facility] [place] [facility] [address] [id number] [place] [address]- 8906 Aug, 2014 [facility] [place] [facility] [address] [id number] [place] [address]- 0873 Aug, 2014 [facility] [place] [facility] [address] [id number] [place] [address]- 7906 Aug, 2014 [facility] [place] [facility] [address] [facility] [id number] [place] [address]- 7922 Aug, 2014 [facility] [place] [facility] [address] [id number] [place] [address]- 4837 Aug, 2014 [facility] [place] [facility] [address] [id number] [place] [address]- 2856 Aug, 2014 [facility] [place] [facility] [address] [facility] [id number] [place] [address]- 4906 Jul, [facility] [place] [facility] [address] [facility] [id number] [place] [address]- 4711 Jul, [facility] [place] [facility] [address] [id number] [place] [address]- 7171 Jun, [facility] [place] [facility] [address] [id number] [place] [address]- 7703 Jun, [facility] [place] [facility] [address] [id number] [place] [address]- 9809 May, [facility] [place] [facility] [address] [facility] [id number] [place] [address]- 8513 May, [facility] [place] [facility] [address] [id number] [address]- 3518 Apr, [facility] [address] [id number] [place] [address]- 1928 Apr, [facility] [address] [facility] [id number] [place] [address]- 3521 Apr, [facility] [address] [facility] [id number] [place] [address]- 3070 Apr, [facility] [address] [id number] [place] [address]- 8985 Apr, [facility] [address] [id number] [place] [address]- 4628 10 Mar, 2014 [facility] [address] [id number] [place] [address]- 9463 10 Mar, 2013 [facility] [address] [facility] [id number] [place] [address]- 4516 05 Mar, 2013 [facility] [address] [facility] [id number] [address]- 6169 04 Mar, 2013 [facility] [address] [facility] [id number] [place] [address]- 9223 03 Mar, 2014 [facility] [address] [facility] [id number] [place] [address]- 4109 03 Mar, 2014 [facility] [address] [facility] [id number] [place] [address]- 2731 Oct, [facility] [address] [id number] [place] [address]- 5089 Oct, [facility] [address] [id number] [address]- 3242 Oct, [facility] [address] [facility] [id number] [address]- 8459 Oct, [facility] [address] [facility] [id number] [place] [address] Oct, IMMUNIZATIONS No Known Immunizations SOCIAL HISTORY Never Assessed REASON FOR VISIT cough/congestion x 2weeks with no production [facility] [place] , low grade fevers x2 [facility] [place] , chills and body aches in evening but goes away [facility] [place] PLAN OF CARE Activity Details Follow Up Reg appt Reason: VITAL SIGNS Height 60 in 2018-05-05 Weight 115 lbs 2018-05-05 Temperature 98.1 degrees Fahrenheit 2018-05-05 Heart Rate 93 bpm 2018-05-05 Respiratory Rate 20 2018-05-05 BMI 22.46 kg/m2 2018-05-05 Blood pressure systolic 118 mmHg 2018-05-05 Blood pressure diastolic 66 mmHg 2018-05-05 MEDICATIONS Medication Instructions Dosage Frequency Start Date End Date Duration Status Protonix 40 mg Orally 2 times a day 1 Tablet 12h Active Symbicort 160-4.5 MCG/ACT Inhalation Twice a day 2 puffs 12h Active Fluconazole 200 MG TAKE ONE TABLET BY MOUTH ONCE A WEEK 63 Active Mononessa 0.25-35 MG-MCG Orally Once a day 1 tablet 24h Active Librax 5-2.5 MG Orally Twice a day 1 capsule before meals 12h 30 Active PredniSONE 20 mg Orally Once a day 2 tablets 24h Apr, May, 5 days Active Gabapentin 600 MG 1 tablet 8h Active Cyclobenzaprine HCl 10 MG TAKE ONE (1) TABLET BY MOUTH THREE (3) TIMES DAILY 30 Active Ativan 1 MG Orally Once a day 1 tablet at bedtime as needed 24h Jul, 28 days Active iron 1 tab 14 days Not-Taking Vitamin B-12 500 MCG Orally Once a day 2 tablets 24h Active Ages [place] 10-325 MG Orally 3 times a day 1 tablet as needed 8h 17 Apr, 2018 Active Albuterol Sulfate 90 mcg/actuation Inhalation 4 times a day 2 puffs by Inhalation route every 4-6 hours as needed PRN cough or wheezing 6h Mar, 30 days Active Proventil HFA 108 (90 Base) MCG/ACT INHALE TWO PUFFS BY MOUTH EVERY 4 TO 6 HOURS NEEDED FOR COUGH OR WHEEZE 17 Not-Taking Zofran ODT 8 mg Orally 3 times a day 1 tablet 8h 10 Active Zithromax Z-Santos 250 MG Orally Once a day as directed 24h Apr, May, 5 day(s) Active Acidophilus 100 mg Orally Once a day 1 capsule 24h Apr, Not- Taking RESULTS No Results PROCEDURES No Known procedures INSTRUCTIONS MEDICATIONS ADMINISTERED No Known Medications MEDICAL (GENERAL) HISTORY Type Description Date Medical History stomach ulcers in past Medical History Colon spasms Surgical History Obstructed bowel surgery 2011 Surgical History Partial stomach removal due to ulcers. Surgery at [facility] in [place] 10/2014 Surgical History ovarian cyst removal Surgical History Hysterectomy 2005 Surgical History appendectomy Surgical History EGD 02/06/2016 Surgical History Removed part of stomach [facility] 03/2016 Surgical History Infection removal of stomach [facility] 05/24/2016 Hospitalization History past surgeries
--- OUTSIDE RECORDS SUMMARY | 2018-07-16 14:44 | XMS REPORT ---
Author Author JONATHAN TODD [facility] Address [address] [place] [address] Care Team Providers Care Structural Manager Name Role Phone TODDJONATHAN Unavailable PROBLEMS Type Condition ICD9-CM Code BXV82-RJ Code Onset Dates Condition Status SNOMED Code Problem Hyperlipidemia E78.5 Active 66362553 Problem Adolescent idiopathic scoliosis of thoracic region M41.124 Active 877832832 Problem Seasonal allergic rhinitis due to other allergic trigger J30.89 Active 030208103 Problem Anxiety F41.9 Active 24151935 ALLERGIES No Information ENCOUNTERS Encounter Location Date Diagnosis [facility] [place] [id number] [place] [address] 70942- 6228 Apr, [facility] [place] [id number] [place] [address] 83511- 7426 Apr, [facility] [place] [id number] [place] [address] 36608- 4821 Apr, Acute cystitis without hematuria N30.00 [facility] [id number] [place] [address] [phone] -[phone] Mar, [facility] [place] [id number] [place] [address] 22315- 1060 Mar, Hyperlipidemia E78.5 ; Hyperglycemia R73.9 ; Bronchitis J40 and Acute bacterial conjunctivitis of left eye H10.32 [facility] [place] [id number] [place] [address] 31194- 7017 11 Mar, 2018 [facility] [place] [address] 60006- 0467 Feb, Acute bacterial conjunctivitis of left eye H10.32 ; Anxiety F41.9 and Adolescent idiopathic scoliosis of thoracic region M41.124 [facility] [place] [address] [id number] [phone] Jan, Bronchitis J40 [place] [address] 48438- 6908 November, [facility] [place] [address] 16849- 2746 Aug, Seasonal allergic rhinitis due to other allergic trigger J30.89 [place] [address] 460609- 6874 Feb, Viral gastroenteritis A08.4 [facility] [address] [id number] Feb, Encounter for dental examination Z01.20 [place] [address] 82421- 2587 Jan, Acute non-recurrent maxillary sinusitis J01.00 [place] [address] 63338- 4940 Dec, [facility] [address] [id number] Oct, Dental examination Z01.20 [place] [address] 24065- 4722 Sep, Dysuria R30.0 and Acute non-recurrent maxillary sinusitis J01.00 [place] [address] 39270- 9438 Sep, [facility] [id number] [place] [address] [id number] Aug, Dental caries K02.9 [place] [address] 76627- 1181 Aug, Eustachian tube dysfunction, bilateral H69.83 [place] [address] 28054- 6055 Jul, Viral gastroenteritis A08.4 and Anxiety F41.9 [facility] [place] [address] [facility] [id number] [address] 16 May, 2016 [facility] [place] [address] [facility] [id number] [place] [address] 91376- 1562 May, [facility] [place] [id number] [place] [address] 26068- 4829 May, [facility] [place] [id number] [place] [address] 51701- 7363 May, [facility] [place] [address] [facility] [id number] [place] [address] 66659- 7609 Apr, [facility] [id number] [place] [address] [id number] Mar, Dental examination Z01.20 and Dental caries K02.9 [facility] [place] [id number] [place] [address] 64085- 0973 Mar, [facility] [place] [id number] [place] [address] 72571- 1972 Mar, [facility] [place] [id number] [place] [address] 94599- 6903 Feb, [facility] [place] [id number] [place] [address] 87939- 9564 Feb, [facility] [place] [id number] [place] [address] 18343- 2456 Feb, Seasonal allergic rhinitis, unspecified allergic rhinitis trigger J30.2 [facility] [place] [id number] [place] [address] 49661- 9089 Jan, [facility] [place] [id number] [place] [address] 55466- 9917 Jan, Encounter for dental examination Z01.20 [facility] [place] [id number] [place] [address] 81356- 9035 Dec, Encounter for dental examination Z01.20 ; Chronic cluster headache, not intractable G44.029 and Nausea R11.0 [facility] [place] [facility] [id number] [place] [address] [id number] Dec, Dental examination Z01.20 and Dental caries K02.9 [facility] [place] [id number] [place] [address] 512874- 7086 Dec, [facility] [place] [id number] [place] [address] 13653- 3357 November, [facility] [place] [address] 02270- 9173 Oct, Neuropathy G62.9 ; Migraine G43.909 ; Chronic gastric ulcer K25.7 ; Tobacco abuse Z72.0 and Tobacco abuse counseling Z71.6 [facility] [id number] [place] [address] [id number] Sep, Dental caries K02.9 [place] [id number] [place] [address] 82871- 3517 Jun, Chronic pain syndrome G89.4 [facility] [address] [id number] Apr, Encounter for dental examination Z01.20 [facility] [id number] [place] [address] [id number] Apr, Dental examination Z01.20 [facility] [id number] [place] [address] [id number] Apr, Dental examination Z01.20 and Dental caries K02.9 [facility] [place] [id number] [place] [address] 61628- 5818 Mar, Acute sinusitis, unspecified 461.9 [place] [address] 48712- 1561 Feb, Dysuria 788.1 and Low back strain 847.2 [place] [id number] [place] [address] 79047- 4730 Jan, [place] [address] [id number] [address]- 6897 Jan, Acute sinusitis, unspecified 461.9 ; Esophageal reflux 530.81 ; Unspecified menopausal and postmenopausal disorder 627.9 and Abdominal pain, generalized 789.07 [facility] [address] [id number] Dec, Dental examination V72.2 [facility] [place] [id number] [place] [address] 65671- 3465 Oct, [facility] [place] [id number] [place] [address] 58341- 8146 Oct, [facility] [place] [id number] [place] [address] 20073- 4455 Oct, [facility] [place] [id number] [place] [address] 235969- 7670 Sep, [facility] [place] [id number] [place] [address] 15279- 8538 Sep, [facility] [place] [id number] [place] [address] 12355- 5701 Sep, [facility] [place] [id number] [place] [address] 51358- 7635 Sep, [facility] [place] [id number] [place] [address] 69101- 2324 Aug, [facility] [place] [id number] [place] [address] 22213- 9512 Aug, [facility] [place] [id number] [place] [address] 52618- 8495 Aug, [facility] [place] [id number] [place] [address] 06245- 7956 Aug, [facility] [place] [id number] [place] [address] [id number]- 3502 Aug, [facility] [place] [id number] [place] [address] 64680- 8888 Aug, 2014 [facility] [place] [facility] [address] [id number] [place] [address]- 1691 Aug, 2014 [facility] [place] [facility] [address] [id number] [place] [address]- 9855 Aug, 2014 [facility] [place] [facility] [address] [id number] [place] [address]- 1582 Aug, 2014 [facility] [place] [facility] [address] [id number] [place] [address]- 5356 Aug, 2014 [facility] [place] [facility] [address] [id number] [place] [address]- 0067 Jul, [facility] [place] [facility] [address] [facility] [id number] [place] [address]- 9658 Jul, [facility] [place] [facility] [address] [facility] [id number] [place] [address]- 0259 Jun, [facility] [place] [facility] [address] [facility] [id number] [place] [address]- 1768 Jun, [facility] [place] [facility] [address] [facility] [id number] [place] [address]- 1031 May, [facility] [place] [facility] [address] [facility] [id number] [place] [address]- 6113 May, [facility] [place] [facility] [address] [facility] [id number] [place] [address]- 1795 Apr, [facility] [place] [facility] [address] [id number], [place] [address]- 6513 Apr, [facility] [place] [facility] [address] [id number] [place] [address]- 4873 Apr, [facility] [place] [facility] [address] [facility] [id number] [place] 8726 Apr, [facility] [place] [facility] [address] [id number] [place] [address]- 8814 Apr, [facility] [place] [address] [id number] [address]- 6481 Mar, [facility] [place] [address] [address]- 4060 Mar, [facility] [place] [address]- 4666 Mar, [facility] [place] [id number] [place] [address] 05883- 5896 Mar, [facility] [place] [id number]- 3395 Mar, [facility] [place] [id number] [place] [address] 16631- 4596 Mar, [facility] [place] [id number] [place] [address] 42751- 8347 Oct, [facility] [place] [id number] [place] [address] 62971- 5422 Oct, [facility] [place] [address] [address]- 8526 Oct, [facility] [place] [id number] [place] [address] 75694- 8647 Oct, [facility] [place] [address] [address]- 6304 Oct, IMMUNIZATIONS No Known Immunizations SOCIAL HISTORY Never Assessed REASON FOR VISIT reports some pain in her abdomen around her umbilicus for the past week. denies dysuria. denies vaginal discharge. last BM was yesterday et normal for her. abel, instructed pt to increase H2O intake, cranberry juice, tylenol ( cant take motrin due to past sensitivity), AZO pill OTC. pt verbalized understanding. appt with reyna tovar made for fu if needed on - 04/06/2018 at 1800 PLAN OF CARE VITAL SIGNS Height 60 in 2018-04-03 Weight 113.4 lbs 2018-04-03 Temperature 98.1 degrees Fahrenheit 2018-04-03 Heart Rate 70 bpm 2018-04-03 Respiratory Rate 20 2018-04-03 BMI 22.14 kg/m2 2018-04-03 Blood pressure systolic 120 mmHg 2018-04-03 Blood pressure diastolic 72 mmHg 2018-04-03 MEDICATIONS Medication Instructions Dosage Frequency Start Date End Date Duration Status Protonix 40 mg Orally 2 times a day 1 Tablet 12h Active Zofran ODT 8 mg Orally 3 times a day 1 tablet 8h 10 Active Fluconazole 200 MG TAKE ONE TABLET BY MOUTH ONCE A WEEK 63 Active Mononessa 0.25-35 MG-MCG Orally Once a day 1 tablet 24h Active iron 1 tab 14 days Active Gabapentin 600 MG 1 tablet 8h Active Reston 10-325 MG Orally 3 times a day 1 tablet as needed 8h Mar, Active Estratest ... by oral route Once a day 2 tablets 24h Not-Taking Cyclobenzaprine HCl 10 MG TAKE ONE (1) TABLET BY MOUTH THREE (3) TIMES DAILY 30 Active Symbicort 160-4.5 MCG/ACT Inhalation Twice a day 2 puffs 12h Active Vitamin B-12 500 MCG Orally Once a day 2 tablets 24h Active Guaifenesin 400 mg Orally every 4 hrs 1 tablet as needed 4h Jan, Not-Taking Librax 5-2.5 MG Orally Twice a day 1 capsule before meals 12h 30 Active Proventil HFA 108 (90 Base) MCG/ACT INHALE TWO PUFFS BY MOUTH EVERY 4 TO 6 HOURS NEEDED FOR COUGH OR WHEEZE 17 Active Iron 325 (65 Fe) MG Orally twice a day 1 tablet 12h Not-Taking Albuterol Sulfate 90 mcg/actuation Inhalation 4 times a day 2 puffs by Inhalation route every 4-6 hours as needed PRN cough or wheezing 6h Mar, 30 days Active Ativan 1 MG Orally Once a day 1 tablet at bedtime as needed 24h Jul, 28 days Active RESULTS No Results PROCEDURES No Known procedures INSTRUCTIONS MEDICATIONS ADMINISTERED No Known Medications MEDICAL (GENERAL) HISTORY Type Description Date Medical History stomach ulcers in past Medical History Colon spasms Surgical History Obstructed bowel surgery 2011 Surgical History Partial stomach removal due to ulcers. Surgery at [facility] in [place] 10/2014 Surgical History ovarian cyst removal Surgical History Hysterectomy 2006 Surgical History appendectomy Surgical History EGD 02/06/2016 Surgical History Removed part of stomach [facility] 03/2016 Surgical History Infection removal of stomach [facility] 05/24/2016 Hospitalization History past surgeries
--- OUTSIDE RECORDS SUMMARY | 2018-07-16 14:45 | XMS REPORT ---
Author Author SONNY PARRISH Organization [facility] Address [address] [place] [address] Care Team Providers Care Firmware Manager Name Role Phone SONNY PARRISH Unavailable PROBLEMS Type Condition ICD9-CM Code KZX96-RE Code Onset Dates Condition Status SNOMED Code Problem Adolescent idiopathic scoliosis of thoracic region M41.124 Active 598953258 Problem Seasonal allergic rhinitis due to other allergic trigger J30.89 Active 799368727 Problem Anxiety F41.9 Active 31811715 ALLERGIES Substance Reaction Event Type Date Status Wellbutrin nightmares/irritable Drug Allergy Jan, Active Sulfamethoxazole-Trimethoprim Body aches, tunnel vision Drug Allergy Jan Active Sudafed dizziness Drug Allergy Jan, Active Flagyl skin burning Drug Allergy Jan, Active Morphine itching Drug Allergy Jan, Active ENCOUNTERS Encounter Location Date Diagnosis [place] [id number] [place] [address] 11498- 8149 Mar, [place] [id number] [place] [address] 53508- 7443 Feb, Acute bacterial conjunctivitis of left eye H10.32 ; Anxiety F41.9 and Adolescent idiopathic scoliosis of thoracic region M41.124 [place] [id number] [place] [address] 71938- 1391 Jan, Bronchitis J40 [place] [id number] [place] [address] 98732- 7536 November, [place] [id number] [place] [address] 07713- 0265 Aug, Seasonal allergic rhinitis due to other allergic trigger J30.89 [place] [id number] [place] [address] 69397- 1562 Feb, Viral gastroenteritis A08.4 [facility] [id number] [place] [address] [id number] Feb, Encounter for dental examination Z01.20 [facility] [id number] [place] [address] 771315- 5096 Jan, Acute non-recurrent maxillary sinusitis J01.00 [facility] [id number] [place] [address] 546335- 9826 Dec, [facility] [address] [id number] Oct, Dental examination Z01.20 [facility] [address] 610386- 0236 Sep, Dysuria R30.0 and Acute non-recurrent maxillary sinusitis J01.00 [facility] [address] 09223- 5916 Sep, [facility] [id number] [place] [address] [id number] Aug, Dental caries K02.9 [facility] [address] 49766- 5802 Aug, Eustachian tube dysfunction, bilateral H69.83 [facility] [id number] [place] [address] 57456- 6642 Jul, Viral gastroenteritis A08.4 and Anxiety F41.9 [facility] [id number] [place] [address] 57722- 4624 May, [facility] [address] 75852- 1658 May, [facility] [address] 67315- 1822 May, [facility] [address] 03786- 2759 May, [facility] [address] [place] [address] 0607 Apr, [facility] [id number] [place] [address] [id number] Mar, Dental examination Z01.20 and Dental caries K02.9 [facility] [id number] [place] [address] 46742- 7549 Mar, [facility] [address] 56095- 7791 Mar, [facility] [id number] [place] [address] 27924- 0541 Feb, [facility] [address] 65946- 5923 Feb, [facility] [id number] [place] [address] 54927- 6406 Feb, Seasonal allergic rhinitis, unspecified allergic rhinitis trigger J30.2 [facility] [id number] [place] [address] 71980- 0207 Jan, [facility] [id number] [place] [address] 87171- 5005 Jan, Encounter for dental examination Z01.20 [facility] [id number] [place] [address] 57894- 5489 Dec, Encounter for dental examination Z01.20 ; Chronic cluster headache, not intractable G44.029 and Nausea R11.0 [facility] [id number] [place] [address] [id number] Dec, Dental examination Z01.20 and Dental caries K02.9 [facility] [id number] [place] [address] 55701- 4321 Dec, [facility] [id number] [place] [address] 60710- 2374 November, [facility] [id number] [place] [address] 80377- 1892 Oct, Neuropathy G62.9 ; Migraine G43.909 ; Chronic gastric ulcer K25.7 ; Tobacco abuse Z72.0 and Tobacco abuse counseling Z71.6 [facility] [id number] [place] [address] [id number] Sep, Dental caries K02.9 [facility] [id number] [place] [address] [id number]- 9215 Jun, Chronic pain syndrome G89.4 [facility] [address] [id number] Apr, Encounter for dental examination Z01.20 [facility] [address] [id number] Apr, Dental examination Z01.20 [facility] [address] [id number] Apr, Dental examination Z01.20 and Dental caries K02.9 [facility] [address] [id number]- 5992 Mar, Acute sinusitis, unspecified 461.9 [place] [address] 70893- 9267 Feb, Dysuria 788.1 and Low back strain 847.2 [place] [address] 63327- 9225 Jan, [facility] [address] 29939- 3809 Jan, Acute sinusitis, unspecified 461.9 ; Esophageal reflux 530.81 ; Unspecified menopausal and postmenopausal disorder 627.9 and Abdominal pain, generalized 789.07 [facility] [address] [id number] Dec, Dental examination V72.2 [facility] [address] 94689- 2293 Oct, [place] [address] [place] [address]- 2461 14 Oct, 2014 [facility] [place] [facility] [address] [id number] [place] [address]- 7624 13 Oct, 2014 [facility] [place] [facility] [address] [id number] [place] [address]- 3039 Sep, [facility] [place] [facility] [address] [facility] [id number] [place] [address]- 5181 Sep, [facility] [place] [facility] [address] [id number] [place] [address]- 2096 Sep, [facility] [place] [facility] [address] [id number] [place] [address]- 8461 Sep, [facility] [place] [facility] [address] [facility] [id number] [place] [address]- 3433 Aug, 2014 [facility] [place] [facility] [address] [facility] [id number] [place] [address]- 9525 Aug, 2014 [facility] [place] [facility] [address] [facility] [id number] [place] [address]- 3472 Aug, 2014 [facility] [place] [facility] [address] [facility] [id number] [place] [address]- 2863 Aug, 2014 [facility] [place] [facility] [address] [facility] [id number] [place] [address]- 9256 Aug, 2014 [facility] [place] [facility] [address] [facility] [id number] [place] [address]- 2549 Aug, 2014 [facility] [place] [facility] [address] [facility] [id number] [place] [address] 2549 Aug, 2014 [facility] [place] [facility] [address] [facility] [id number] [place] [address]- 6801 Aug, 2014 [facility] [place] [facility] [address] [facility] [id number] [place] [address] 2541 Aug, 2014 [facility] [place] [facility] [address] [facility] [id number] [place] [address]- 1837 Aug, [facility] [place] [facility] [address] [id number] [place] [address]- 3114 Jul, [facility] [place] [facility] [address] [id number] [place] [address]- 4008 Jul, [facility] [place] [facility] [address] [facility] [id number] [place] 7332 Jun, [facility] [place] [facility] [address] [id number] [place] [address]- 2853 Jun, [facility] [place] [facility] [address] [id number] [place] 0833 May, [facility] [place] [facility] [address] [id number] [place] [address]- 8034 May, [facility] [place] [facility] [address] [facility] [id number] [place] [address]- 6124 Apr, [facility] [place] [facility] [address] [id number] [address]- 1389 Apr, [facility] [place] [facility] [address] [id number] [place] [address]- 9662 Apr, [facility] [place] [facility] [address] [facility] [id number] [place] [address]- 7513 Apr, [facility] [place] [facility] [address] [id number], [place] [address]- 0490 Apr, [facility] [place] [facility] [address] [id number], [place] [address]- 9420 Mar, [facility] [place] [facility] [address] [id number] [place] [address]- 9536 Mar, [facility] [place] [facility] [address] [facility] [id number], [place] [address]- 0882 Mar, [facility] [place] [facility] [address] [facility] [id number], [place] [address]- 3650 Mar, [facility] [place] [facility] [address] [facility] [id number] [place] [address]- 4076 Mar, [facility] [address] [facility] [id number][place] 8258 Mar, [facility] [address] [facility] [id number][id number] 9974 Oct, [facility] [address] [facility] [id number], [place] [address]- 8721 Oct, [facility] [address] [facility] [id number], [place] [address]- 1025 Oct, [facility] [address] [facility] [id number][place]- 9277 Oct, [facility] [address] [facility] [id number][place] [address]- 0119 Oct, IMMUNIZATIONS No Known Immunizations SOCIAL HISTORY Never Assessed REASON FOR VISIT Cough, fever, sore joints WB-MA, PT has shortness of breath and feels cold at night PLAN OF CARE VITAL SIGNS Height 60 in 2018-01-09 Weight 112 lbs 2018-01-09 Temperature 98.5 degrees Fahrenheit 2018-01-09 Heart Rate 80 bpm 2018-01-09 Respiratory Rate 20 2018-01-09 Oximetry on room air:97 % 2018-01-09 BMI 21.87 kg/m2 2018-01-09 Blood pressure systolic 112 mmHg 2018-01-09 Blood pressure diastolic 66 mmHg 2018-01-09 MEDICATIONS Medication Instructions Dosage Frequency Start Date End Date Duration Status Guaifenesin 400 mg Orally every 4 hrs 1 tablet as needed 4h Jan, Active Zithromax Z-Santos 250 MG Orally Once a day 2 tablets on the first day, then 1 tablet daily for 4 days 24h Jan, Jan, 5 day(s) Active Iron 325 (65 Fe) MG Orally twice a day 1 tablet 12h Active Cetirizine HCl 10 mg Orally Once a day 1 tablet 24h Aug, Jan, 30 day(s) Not-Taking Ativan 1 MG Orally Once a day 1 tablet at bedtime as needed 24h Jul, 28 days Active Librax 5-2.5 MG Orally Twice a day 1 capsule before meals 12h 30 Active Protonix 40 MG Orally 3 times a day 1 Tablet 8h 30 Active Cyclobenzaprine HCl 10 MG TAKE ONE TABLET BY MOUTH THREE TIMES DAILY 30 Active Vitamin B-12 500 MCG Orally Once a day 2 tablets 24h Active Albuterol Sulfate 90 mcg/actuation Inhalation 4 times a day 2 puffs by Inhalation route every 4-6 hours as needed PRN cough or wheezing 6h Mar, 30 days Active Hydrocodone-Acetaminophen 10-325 MG Orally every 6 hrs 1 tablet as needed 6h Active Gabapentin 600 MG TAKE ONE TABLET BY MOUTH THREE TIMES DAILY 30 Active Mononessa 0.25-35 MG-MCG Orally Once a day 1 tablet 24h Active Estratest ... by oral route Once a day 2 tablets 24h Active Pantoprazole Sodium 40 MG TAKE ONE TABLET BY MOUTH THREE TIMES DAILY 30 Active Proventil HFA 108 (90 Base) MCG/ACT INHALE TWO PUFFS BY MOUTH EVERY 4 TO 6 HOURS NEEDED FOR COUGH OR WHEEZE 17 Active Zofran ODT 8 mg Orally 3 times a day 1 tablet 8h 10 Active Fluconazole 200 MG TAKE ONE TABLET BY MOUTH ONCE A WEEK 63 Active RESULTS No Results PROCEDURES No Known procedures INSTRUCTIONS MEDICATIONS ADMINISTERED No Known Medications MEDICAL (GENERAL) HISTORY Type Description Date Medical History stomach ulcers in past Medical History Colon spasms Surgical History Obstructed bowel surgery 2011 Surgical History Partial stomach removal due to ulcers. Surgery at [facility] in [place] 10/2014 Surgical History ovarian cyst removal Surgical History Hysterectomy 2005 Surgical History appendectomy Surgical History EGD 02/06/2016 Surgical History Removed part of stomach [facility] 03/2016 Surgical History Infection removal of stomach [facility] 05/24/2016 Hospitalization History past surgeries
--- OUTSIDE RECORDS SUMMARY | 2018-07-16 14:45 | XMS REPORT ---
Author Author SONNY PARRISH Organization [facility] Address [address] [place] [address] Care Team Providers Care Retail Administrative Assistant Name Role Phone SONNY PARRISH Unavailable PROBLEMS Type Condition ICD9-CM Code INO82-UY Code Onset Dates Condition Status SNOMED Code Problem Hyperlipidemia E78.5 Active 18070674 Problem Adolescent idiopathic scoliosis of thoracic region M41.124 Active 146178196 Problem Seasonal allergic rhinitis due to other allergic trigger J30.89 Active 202201009 Problem Anxiety F41.9 Active 87939156 ALLERGIES Substance Reaction Event Type Date Status Wellbutrin nightmares/irritable Drug Allergy Feb, Active Sulfamethoxazole-Trimethoprim Body aches, tunnel vision Drug Allergy Feb Active Sudafed dizziness Drug Allergy Feb, Active Flagyl skin burning Drug Allergy Feb, Active Morphine itching Drug Allergy Feb, Active ENCOUNTERS Encounter Location Date Diagnosis [place] [id number] [place] [address] 63677- 1451 Apr, [place] [id number] [place] [address] 58183- 2475 Mar, Hyperlipidemia E78.5 ; Hyperglycemia R73.9 ; Bronchitis J40 and Acute bacterial conjunctivitis of left eye H10.32 [facility] [id number] [place] [address] 82817- 8680 Mar, [facility] [id number] [place] [address] 33766- 9680 Feb, Acute bacterial conjunctivitis of left eye H10.32 ; Anxiety F41.9 and Adolescent idiopathic scoliosis of thoracic region M41.124 [facility] [id number] [place] [address] 23833- 3281 Jan, Bronchitis J40 [place] [id number] [place] [address] 55746125- 6436 November, [facility] [address] 25770- 7930 Aug, Seasonal allergic rhinitis due to other allergic trigger J30.89 [facility] [address] 27167- 4487 Feb, Viral gastroenteritis A08.4 [facility] [address] [id number] Feb, Encounter for dental examination Z01.20 [facility] [address] 63826- 9476 Jan, Acute non-recurrent maxillary sinusitis J01.00 [facility] [address] 64219- 4366 Dec, [facility] [address] [id number] Oct, Dental examination Z01.20 [facility] [address] 24053- 3038 Sep, Dysuria R30.0 and Acute non-recurrent maxillary sinusitis J01.00 [facility] [address] 58636- 6076 Sep, [facility] [address] [id number] Aug, Dental caries K02.9 [facility] [address] 79441- 3524 Aug, Eustachian tube dysfunction, bilateral H69.83 [facility] [address] 06452- 5437 Jul, Viral gastroenteritis A08.4 and Anxiety F41.9 [facility] [address] 41538- 3701 May, [facility] [address] [address]- 9381 15 May, 2016 [facility] [id number] [place] [address] 96292- 9563 May, [facility] [id number] [place] [address] 22566- 8425 May, [facility] [id number] [place] [address] 25345- 9118 Apr, [facility] [id number] [place] [address] [id number] Mar, Dental examination Z01.20 and Dental caries K02.9 [facility] [id number] [place] [address] 62034- 3398 Mar, [facility] [id number] [place] [address] 80689- 5038 Mar, [facility] [id number] [place] [address] 55095- 2747 Feb, [facility] [id number] [place] [address] 28865- 6495 Feb, [facility] [id number] [place] [address] 36260- 1230 Feb, Seasonal allergic rhinitis, unspecified allergic rhinitis trigger J30.2 [facility] [id number] [place] [address] 64982- 9553 Jan, [facility] [id number] [place] [address] 68405- 3359 Jan, Encounter for dental examination Z01.20 [facility] [id number] [place] [address] 95608- 4478 Dec, Encounter for dental examination Z01.20 ; Chronic cluster headache, not intractable G44.029 and Nausea R11.0 [facility] [id number] [place] [address] [id number] Dec, Dental examination Z01.20 and Dental caries K02.9 [facility] [address] [place] [address] 48865- 4473 Dec, [facility] [id number] [place] [address] 88872- 6506 November, [facility] [id number] [place] [address] 83637- 9402 Oct, Neuropathy G62.9 ; Migraine G43.909 ; Chronic gastric ulcer K25.7 ; Tobacco abuse Z72.0 and Tobacco abuse counseling Z71.6 [facility] [id number] [place] [address] [id number] Sep, Dental caries K02.9 [place] [id number] [place] [address] 96139- 1376 Jun, Chronic pain syndrome G89.4 [facility] [address] [id number] Apr, Encounter for dental examination Z01.20 [facility] [id number] [place] [address] [id number] Apr, Dental examination Z01.20 [facility] [address] [id number] Apr, Dental examination Z01.20 and Dental caries K02.9 [place] [address] [place] [address] 85188- 3760 Mar, Acute sinusitis, unspecified 461.9 [place] [address] [place] [address] 46489- 1908 Feb, Dysuria 788.1 and Low back strain 847.2 [place] [id number] [place] [address] 133092- 6794 Jan, [place] [id number] [place] [address] 94794- 7956 Jan, Acute sinusitis, unspecified 461.9 ; Esophageal reflux 530.81 ; Unspecified menopausal and postmenopausal disorder 627.9 and Abdominal pain, generalized 789.07 [facility] [address] [id number] [id number] Dec, Dental examination V72.2 [facility] [address], [place] [address]- 2467 28 Oct, 2014 [facility] [id number] [place] [address] 57609- 6258 14 Oct, 2014 [facility] [id number] [place] [address] 14772- 3659 Oct, [facility] [id number] [place] [address] 192341- 4225 Sep, [facility] [id number] [place] [address] 53000- 3600 Sep, [facility] [id number] [place] [address] 34318- 7513 Sep, [facility] [address] [place] [address] 90162- 0977 Sep, [facility] [id number] [place] [address] 74350- 3650 Aug, [facility] [address], [place] [address]- 1175 Aug, [facility] [id number] [place] [address] 76004- 5849 Aug, [facility] [address] [place] [address] 95390- 5892 Aug, [facility] [id number] [place] [address] 16536- 6202 Aug, [facility] [address] 2978 Aug, [facility] [id number] [place] [address] 34278- 5402 Aug, 2014 [facility] [place] [facility] [address] [id number] [place] [address]- 7198 Aug, 2014 [facility] [place] [facility] [address] [id number], [place] [address]- 9621 Aug, 2014 [facility] [place] [facility] [address] [facility] [id number] [place] [address]- 7954 Aug, [facility] [place] [facility] [address] [facility] [id number] [place] [address]- 8321 Jul, [facility] [place] [facility] [address] [facility] [id number] [place] [address]- 9199 Jul, [facility] [place] [facility] [address] [facility] [id number] [place] [address]- 5227 Jun, [facility] [place] [facility] [address] [facility] [id number], [place] [address]- 3371 Jun, [facility] [place] [facility] [address] [facility] [id number], [place] [address]- 0519 May, [facility] [place] [facility] [address] [facility] [id number], [place] [address]- 3844 May, [facility] [place] [facility] [address] [facility] [id number], [place] [address]- 0454 Apr, [facility] [place] [facility] [address] [facility] [id number], [place] [address]- 0901 Apr, [facility] [place] [facility] [address] [facility] [id number], [place] [address]- 4513 Apr, [facility] [place] [facility] [address] [facility] [id number], [place] [address]- 4354 Apr, [facility] [place] [facility] [address] [facility] [id number], [place] [address]- 2791 Apr, [facility] [place] [facility] [address] [facility] [id number], [place] [address]- 4086 Mar, [facility] [place] [facility] [id number] [address]- 6199 10 Mar, 2014 [facility] [address], [place] [address]- 0135 05 Mar, 2014 [facility] [address], [place] [address]- 2110 Mar, [facility] [address], [place] [address]- 4981 Mar, [facility] [address], [place] [address]- 8583 Mar, [facility] [address] [place] [address] 54696- 9452 Oct, [facility] [address], [place] [address]- 5729 Oct, [facility] [address] [place] [address] 98430- 5134 Oct, [facility] [address], [place] [address]- 6321 Oct, [facility] [address], [place] [address]- 8240 Oct, IMMUNIZATIONS No Known Immunizations SOCIAL HISTORY Never Assessed REASON FOR VISIT Anxiety - LARY Ruiz, Still coughing after having pneumonia one month ago, Left eye redness and swelling x3 days, was seen in the ER yesterday PLAN OF CARE VITAL SIGNS Height 60 in 2018-02-19 Weight 110.3 lbs 2018-02-19 Temperature 98.1 degrees Fahrenheit 2018-02-19 Heart Rate 80 bpm 2018-02-19 Respiratory Rate 20 2018-02-19 BMI 21.54 kg/m2 2018-02-19 Blood pressure systolic 120 mmHg 2018-02-19 Blood pressure diastolic 68 mmHg 2018-02-19 MEDICATIONS Medication Instructions Dosage Frequency Start Date End Date Duration Status Fluconazole 200 MG TAKE ONE TABLET BY MOUTH ONCE A WEEK 63 Active Librax 5-2.5 MG Orally Twice a day 1 capsule before meals 12h 30 Active Protonix 40 mg Orally 2 times a day 1 Tablet 12h Active Proventil HFA 108 (90 Base) MCG/ACT INHALE TWO PUFFS BY MOUTH EVERY 4 TO 6 HOURS NEEDED FOR COUGH OR WHEEZE 17 Active Zofran ODT 8 mg Orally 3 times a day 1 tablet 8h 10 Active Estratest ... by oral route Once a day 2 tablets 24h Not-Taking Guaifenesin 400 mg Orally every 4 hrs 1 tablet as needed 4h Jan, Not-Taking Vitamin B-12 500 MCG Orally Once a day 2 tablets 24h Active Cyclobenzaprine HCl 10 MG TAKE ONE (1) TABLET BY MOUTH THREE (3) TIMES DAILY 30 Active Mononessa 0.25-35 MG-MCG Orally Once a day 1 tablet 24h Active Symbicort 160-4.5 MCG/ACT Inhalation Twice a day 2 puffs 12h Active Albuterol Sulfate 90 mcg/actuation Inhalation 4 times a day 2 puffs by Inhalation route every 4-6 hours as needed PRN cough or wheezing 6h Mar, 30 days Active Gabapentin 600 MG 1 tablet 8h Active Ativan 1 MG Orally Once a day 1 tablet at bedtime as needed 24h Jul, 28 days Active Ocilla 10-325 MG Orally 3 times a day 1 tablet as needed 8h Feb, Active Iron 325 (65 Fe) MG Orally twice a day 1 tablet 12h Not-Taking RESULTS No Results PROCEDURES No Known procedures INSTRUCTIONS MEDICATIONS ADMINISTERED No Known Medications MEDICAL (GENERAL) HISTORY Type Description Date Medical History stomach ulcers in past Medical History Colon spasms Surgical History Obstructed bowel surgery 2011 Surgical History Partial stomach removal due to ulcers. Surgery at [facility] in [place] 10/2014 Surgical History ovarian cyst removal Surgical History Hysterectomy 2005 Surgical History appendectomy Surgical History EGD 02/06/2016 Surgical History Removed part of stomach [facility] 03/2016 Surgical History Infection removal of stomach [facility] 05/24/2016 Hospitalization History past surgeries
--- OUTSIDE RECORDS SUMMARY | 2018-07-16 14:45 | XMS REPORT ---
Author Author SONYN PARRISH Organization [facility] Address [address] [place] [address] Care Team Providers Care Experimental Flight Test Mechanic Name Role Phone SONNY PARRISH Unavailable PROBLEMS Type Condition ICD9-CM Code GWS40-BP Code Onset Dates Condition Status SNOMED Code Problem Seasonal allergic rhinitis due to other allergic trigger J30.89 Active 887525786 Problem Anxiety F41.9 Active 39090947 ALLERGIES No Information ENCOUNTERS Encounter Location Date Diagnosis [place] [address] [address]- 8867 Feb, [place] [address] 62127- 3001 Jan, Bronchitis J40 [facility] [address] 51382- 9554 November, [facility] [address] 82355- 5533 Aug, Seasonal allergic rhinitis due to other allergic trigger J30.89 [facility] [address] 86686- 8653 Feb, Viral gastroenteritis A08.4 [facility] [address] [id number] Feb, Encounter for dental examination Z01.20 [facility] [address] 06107- 0313 Jan, Acute non-recurrent maxillary sinusitis J01.00 [facility] [address] 72780- 7734 Dec, [facility] [address] [id number] Oct, Dental examination Z01.20 [facility] [id number] [place] [address] 81073- 3936 Sep, Dysuria R30.0 and Acute non-recurrent maxillary sinusitis J01.00 [facility] [address] 84414- 3326 Sep, [facility] [address] [id number] Aug, Dental caries K02.9 [facility] [address] 64103- 1051 Aug, Eustachian tube dysfunction, bilateral H69.83 [facility] [address] 79395- 5388 Jul, Viral gastroenteritis A08.4 and Anxiety F41.9 [facility] [address] 44125- 2092 May, [facility] [address] 93818- 9093 May, [facility] [address] 89061- 9981 May, [facility] [address] 08027- 0182 May, [facility] [address] 11727- 2676 Apr, [facility] [id number] [place] [address] [id number] Mar, Dental examination Z01.20 and Dental caries K02.9 [facility] [address] 26667- 6020 Mar, [facility] [address] 27051- 2976 Mar, [facility] [address] 14299- 0935 Feb, [facility] [id number] [place] [address] 01984- 3492 Feb, [facility] [id number] [place] [address] 35988- 5466 Feb, Seasonal allergic rhinitis, unspecified allergic rhinitis trigger J30.2 [place] [id number] [place] [address] 81361- 7166 Jan, [place] [id number] [place] [address] 60823- 9729 Jan, Encounter for dental examination Z01.20 [place] [id number] [place] [address] 74801- 9518 Dec, Encounter for dental examination Z01.20 ; Chronic cluster headache, not intractable G44.029 and Nausea R11.0 [facility] [address] [id number] Dec, Dental examination Z01.20 and Dental caries K02.9 [place] [id number] [place] [address] 97455- 1145 Dec, [place] [id number] [place] [address] 13410- 9520 November, [place] [id number] [place] [address] 68318- 7949 Oct, Neuropathy G62.9 ; Migraine G43.909 ; Chronic gastric ulcer K25.7 ; Tobacco abuse Z72.0 and Tobacco abuse counseling Z71.6 [facility] [id number] [place] [address] [id number] Sep, Dental caries K02.9 [place] [id number] [place] [address] 38229- 5033 Jun, Chronic pain syndrome G89.4 [facility] [id number] [place] [address] [id number] Apr, Encounter for dental examination Z01.20 [facility] [address] [id number] Apr, Dental examination Z01.20 [facility] [id number] [place] [address] [id number] Apr, Dental examination Z01.20 and Dental caries K02.9 [facility] [id number] [place] [address] 20499- 5586 Mar, Acute sinusitis, unspecified 461.9 [facility] [id number] [place] [address] 94305- 2836 Feb, Dysuria 788.1 and Low back strain 847.2 [facility] [id number] [place] [address] 59309- 5996 Jan, [facility] [id number] [place] [address] 02380- 1915 Jan, Acute sinusitis, unspecified 461.9 ; Esophageal reflux 530.81 ; Unspecified menopausal and postmenopausal disorder 627.9 and Abdominal pain, generalized 789.07 [facility] [address] [place] [address] [id number] Dec, Dental examination V72.2 [facility] [address] [place] [address] 64528- 1106 28 Oct, 2014 [facility] [address] [place] [address] [id number]- 1815 14 Oct, 2014 [facility] [id number] [place] [address] 440235- 6712 Oct, [facility] [id number] [place] [address] 19703- 4006 Sep, [facility] [id number] [place] [address] 714363- 5226 Sep, [facility] [address] [place] [address] 99404- 0726 Sep, [facility] [place] [facility] [address] [id number] [place] [address]- 2404 Sep, [facility] [place] [facility] [address] [id number] [place] [address]- 7800 Aug, 2014 [facility] [place] [facility] [address] [id number] [place] [address]- 9963 Aug, 2014 [facility] [place] [facility] [address] [id number] [place] [address]- 7039 Aug, 2014 [facility] [place] [facility] [address] [id number] [place] [address]- 6040 Aug, 2014 [facility] [place] [facility] [address] [id number] [place] [address]- 6674 Aug, 2014 [facility] [place] [facility] [address] [facility] [id number] [place] [address]- 2209 Aug, 2014 [facility] [place] [facility] [address] [id number] [place] [address]- 9715 Aug, 2014 [facility] [place] [facility] [address] [id number] [place] [address]- 9559 Aug, 2014 [facility] [place] [facility] [address] [facility] [id number] [place] [address]- 3113 Aug, [facility] [place] [facility] [address] [facility] [id number] [place] [address]- 7642 Aug, [facility] [place] [facility] [address] [id number] [place] [address]- 5980 Jul, [facility] [place] [facility] [address] [id number] [place] [address]- 4705 Jul, [facility] [place] [facility] [address] [facility] [id number] [place] [address]- 6786 Jun, [facility] [place] [facility] [address] [facility] [id number] [place] [address]- 9583 Jun, [facility] [place] [facility] [address] [id number] [place] [address]- 3950 May, [facility] [place] [facility] [address] [id number] [place] [address]- 8431 May, [facility] [place] [facility] [address] [id number] [place] [address]- 7788 Apr, [facility] [place] [facility] [address] [id number] [place] [address]- 8820 Apr, [facility] [place] [facility] [address] [id number] [place] [address]- 7967 Apr, [facility] [place] [facility] [address] [id number] [place] [address]- 6961 Apr, [facility] [place] [facility] [address] [id number] [place] [address]- 4895 Apr, [facility] [place] [facility] [address] [id number] [place] [address]- 3040 Mar, [facility] [place] [facility] [address] [id number] [place] [address] 10 Mar, 2014 [facility] [place] [facility] [address] [id number] [place] [address] 05 Mar, 2014 [facility] [place] [facility] [address] [id number] [place] [address] 04 Mar, 2014 [facility] [place] [facility] [address] [id number] [place] [address] Mar, 2013 [facility] [place] [facility] [address] [id number] [place] [address] Mar, 2013 [facility] [place] [facility] [address] [id number] [place] [address] Oct, [facility] [place] [facility] [address] [id number] [place] [address] Oct, [facility] [place] [facility] [address] [id number] [place] [address] Oct, [facility] [address] [facility] [id number] [place] [address] Oct, [facility] [address] [facility] [id number] [place] [address] Oct, IMMUNIZATIONS No Known Immunizations SOCIAL HISTORY Never Assessed REASON FOR VISIT med request PLAN OF CARE VITAL SIGNS MEDICATIONS Unknown Medications RESULTS No Results PROCEDURES No Known procedures INSTRUCTIONS MEDICATIONS ADMINISTERED No Known Medications MEDICAL (GENERAL) HISTORY Type Description Date Medical History stomach ulcers in past Medical History Colon spasms Surgical History Obstructed bowel surgery 2011 Surgical History Partial stomach removal due to ulcers. Surgery at [facility] in [place] 10/2014 Surgical History ovarian cyst removal Surgical History Hysterectomy 2005 Surgical History appendectomy Surgical History EGD 02/06/2016 Surgical History Removed part of stomach [facility] 03/2016 Surgical History Infection removal of stomach [facility] 05/24/2016 Hospitalization History past surgeries
--- OUTSIDE RECORDS SUMMARY | 2018-07-16 14:53 | XMS REPORT | Continuity of Care Document ---
Author Author [facility] Address Unknown Phone Unavailable Allergies Active Description Code Type Severity Reaction Onset Reported/Identified Relationship to Patient Clinical Status Yes FLAGYL MILD OTHER Yes SULFAMETHOXAZOLE-TRIMETHOPRIM UNKNOWN OTHER Yes Flagyl Drug Allergy N/A N/A 10/12/2013 Yes morphine Drug Allergy N/A N/A 10/12/2013 Yes Sulfa (Sulfonamide Antibiotics) Drug Allergy N/A N/A 10/12/2013 Yes FLU VACCINE FLU VACCINE Unknown N/A 04/21/2014 Yes morphine [id number] Drug Allergy Severe ITCHING AND FLU 04/28/2016 Yes morphine [id number] Drug Allergy Severe ITCHING FLUSH 08/31/2017 Yes Influenza Virus Vaccines [id number] Drug Allergy Unknown N/A 08/31/2017 Yes metronidazole [id number] Drug Allergy Unknown N/A 08/31/2017 Yes Sulfa (Sulfonamide Antibiotics) [id number] Drug Allergy Unknown N/A 2017 Medications Medication Packaging Start Date Stop Date Route Dosage Sig TOBRAMYCIN EYE DROP DRP 0.3 % (TOBREX EYE DROP) drop 02/18/2018 02/18/2018 ONCE&1949 KETOROLAC VIAL INJ 60 MG/2CC (TORADOL VIAL) MG 06/21/2018 06/21/2018 ONCE&1534 CEFTRIAXONE INJ 1 GM (ROCEPHIN) GM 06/21/2018 06/21/2018 ONCE&1545 CEFTRIAXONE INJ 1 GM (ROCEPHIN) GM 06/22/2018 06/28/2018 Daily&0900 Problems Date Dx Coded Attending Type Code Diagnosis Diagnosed By 09/05/2010 Ot 530.81 09/05/2010 Ot 531.90 09/05/2010 Ot 935.2 10/10/2010 Ot 716.90 10/10/2010 Ot 729.81 07/24/2011 Ot 455.3 EXT HEMORRHOID W/O COMPL 07/24/2011 Ot 564.00 UNSPEC CONSTIPATION 02/18/2012 Ot 787.03 VOMITING ALONE 02/18/2012 Ot 789.01 ABDOMINAL PAIN, RIGHT UPPER QUADRANT 02/25/2012 Ot 305.1 TOBACCO USE DISORDER 02/25/2012 Ot 560.81 INTEST ADHES W [id number] 03/20/2013 RAN MERRITT RN ADMISSION Ot 466.0 ACUTE BRONCHITIS 03/20/2013 RAN MERRITT APRN Ot 786.2 COUGH 09/26/2013 PÉREZ HORVATH MD Ot 564.00 UNSPEC CONSTIPATION 09/26/2013 PÉREZ HORVATH MD Ot 787.01 NAUSEA WITH VOMITING 10/12/2013 TAMMY SIMS DDS 789.07 ABDOMINAL PAIN GENERALIZED 10/12/2013 ZAC YEUNG APRN R 789.07 ABDOMINAL PAIN GENERALIZED 10/12/2013 ZAC YEUNG APRN R 789.07 ABDOMINAL PAIN GENERALIZED 10/12/2013 ZAC YEUNG APRN R 789.07 ABDOMINAL PAIN GENERALIZED 10/12/2013 WHITLEY ROCHE APRN S 789.07 ABDOMINAL PAIN GENERALIZED 10/12/2013 JONATHAN TODD DO 789.07 ABDOMINAL PAIN GENERALIZED 10/20/2013 PÉREZ HORVATH MD Ot 564.00 UNSPEC CONSTIPATION 10/20/2013 PÉREZ HORVATH MD Ot 599.0 URIN TRACT INFECTION NOS 10/20/2013 PÉREZ HORVATH MD Ot 789.09 ABDOMINAL PAIN, OTHER SPECIFIED SITE 12/18/2013 MEGAN AREVALO MD Ot 530.11 REFLUX ESOPHAGITIS 12/18/2013 MEGAN AREVALO MD Ot 532.90 DUODENAL ULCER NOS 12/18/2013 MEGAN AREVALO MD Ot 535.40 OTH SPECIFIED GASTRITIS,W/O MENTION OF H 01/13/2014 MEGAN AREVALO MD Ot 530.11 REFLUX ESOPHAGITIS 01/13/2014 MEGAN AREVALO MD Ot 531.90 STOMACH ULCER NOS 02/24/2014 MEGAN AREVALO MD Ot 530.11 REFLUX ESOPHAGITIS 02/24/2014 MEGAN AREVALO MD Ot 531.90 STOMACH ULCER NOS 03/09/2014 CHERI YEUNG APRNINA R 780.60 FEVER, UNSPECIFIED 03/09/2014 ANJANA RN ADMISSION, ZAC R 786.2 COUGH 03/09/2014 ANJANA RN ADMISSION, ZAC R 780.60 FEVER, UNSPECIFIED 03/09/2014 ANJANA RN ADMISSION, ZAC R 786.2 COUGH 03/09/2014 ANJANA RN ADMISSION, ZAC R 780.60 FEVER, UNSPECIFIED 03/09/2014 ANJANA RN ADMISSION, ZAC R 786.2 COUGH 03/09/2014 KALEY RN ADMISSION, WHITLEY S 780.60 FEVER, UNSPECIFIED 03/09/2014 KALEY RN ADMISSION, WHITLEY S 786.2 COUGH 03/09/2014 PEYTON VALENCIA, JONATHAN K 780.60 FEVER, UNSPECIFIED 03/09/2014 PEYTON VALENCIA, JONATHAN K 786.2 COUGH 03/31/2014 MICKEY DONOHUE, MEGAN S Ot 537.0 ACQ PYLORIC STENOSIS 03/31/2014 MICKEY DONOHUE, MEGAN S Ot V74.8 SCREEN-BACTERIAL DIS NEC 04/07/2014 MICKEY DONOHUE, MEGAN S Ot 530.11 REFLUX ESOPHAGITIS 04/07/2014 MICKEY DONOHUE, MEGAN S Ot 537.0 ACQ PYLORIC STENOSIS 04/14/2014 MICKEY DONOHUE, MEGAN S Ot 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.0 ACHALASIA CARDIOSPASM 04/14/2014 MICKEY DONOHUE, MEGAN S Ot 530.11 REFLUX ESOPHAGITIS 04/14/2014 MICKEY DONOHUE, MEGAN S Ot 531.90 STOMACH ULCER NOS 04/14/2014 MICKEY DONOHUE, MEGAN S Ot 537.0 ACQ PYLORIC STENOSIS 04/21/2014 MICKEY DONOHUE, MEGAN S Ot 530.11 REFLUX ESOPHAGITIS 04/21/2014 MICKEY DONOHUE, MEGAN S Ot 531.90 STOMACH ULCER NOS 04/21/2014 MICKEY DONOHUE, MEGAN S Ot 537.0 ACQ PYLORIC STENOSIS 05/10/2014 ANJANA RN ADMISSION, ZAC R 530.81 ESOPHAGEAL REFLUX 05/10/2014 ANJANA ADLER ZAC R 627.9 UNSPECIFIED MENOPAUSAL AND POSTMENOPAUSAL DISORDER 05/10/2014 KALEY ADLER WHITLEY S 530.81 ESOPHAGEAL REFLUX 05/10/2014 KALEY ADLER WHITLEY S 627.9 UNSPECIFIED MENOPAUSAL AND POSTMENOPAUSAL DISORDER 05/10/2014 AUBRIE TODD DOA K 530.81 ESOPHAGEAL REFLUX 05/10/2014 AUBRIE TODD DOA K 627.9 UNSPECIFIED MENOPAUSAL AND POSTMENOPAUSAL DISORDER 05/12/2014 MICKEY DONOHUE, MEGAN Watts Ot 537.0 ACQ PYLORIC STENOSIS 05/26/2014 MICKEY DONOHUE, MEGAN Watts Ot 530.11 REFLUX ESOPHAGITIS 05/26/2014 MICKEY DONOHUE, MEGAN S Ot 531.90 STOMACH ULCER NOS 05/26/2014 MICKEY DONOHUE, MEGAN Watts Ot 537.0 ACQ PYLORIC STENOSIS 06/09/2014 MICKEY DONOHUE, MEGAN Watts Ot 530.11 REFLUX ESOPHAGITIS 06/09/2014 MICKEY DONOHUE, MEGAN S Ot 531.90 STOMACH ULCER NOS 06/09/2014 MICKEY DONOHUE, MEGAN Watts Ot 537.0 ACQ PYLORIC STENOSIS 06/24/2014 MICKEY DONOHUE, MEGAN Watts Ot 530.11 06/24/2014 MICKEY DONOHUE, MEGAN Watts Ot 537.0 06/24/2014 MICKEY DONOHUE, MEGAN Watts Ot 530.11 06/24/2014 MICKEY DONOHUE, MEGAN Watts Ot 531.90 06/24/2014 MICKEY DONOHUE, MEGAN Watts Ot 537.0 06/27/2014 WHITLEY ROCHE APRN S 461.9 SINUSITIS ACUTE 06/27/2014 JONATHAN TODD DO 461.9 SINUSITIS ACUTE 07/08/2014 CINDY DONOHUE, CROW [...] 530.11 07/20/2014 MICKEY DONOHUE, MEGAN S Ot 537.0 [...] MICKEY DONOHUE, MEGAN S Ot 530.11 04/06/2015 MCIKEY DONOHUE, MEGAN S Ot 531.90 04/06/2015 MICKEY [...] 05/09/2015 Ot V76.12 05/09/2015 MICKEY DONOHUE, MEGAN Watts Ot V72.84 05/09/2015 MICKEY DONOHUE, MEGAN S [...] DONOHUE, MEGAN S Ot V72.84 10/06/2015 MICKEY DONOHEU, MEGAN S Ot 530.11 10/06/2015 MICKEY DONOHUE, MEGAN S Ot 531.90 10/06/2015 MICKEY DONOHUE, MEGAN S Ot 537.0 10/06/2015 MICKEY DONOHUE, MEGAN S Ot V72.84 10/06/2015 MICKEY DONOHUE, MEGAN S Ot V72.84 10/06/2015 MICKEY DONOHUE, MEGAN Watts Ot V72.84 10/06/2015 MICKEY DONOHUE, MEGAN Watts Ot V72.84 10/06/2015 MICKEY DONOHUE, MEGAN Watts Ot V72.84 10/10/2015 Ot Z12.31 10/18/2015 Ot Z12.31 04/24/2016 VIDA CHANCE DO Ot R11.2 NAUSEA WITH VOMITING, UNSPECIFIED 04/24/2016 Ot 533.90 PEPTIC ULCER NOS 04/24/2016 Ot 719.40 JOINT PAIN- UNSPEC 04/24/2016 Ot 783.21 LOSS OF WEIGHT 04/24/2016 Ot 793.82 INCONCLUSIVE MAMMOGRAM 04/24/2016 Ot V76.12 OTH SCREEN MAMMO-MALIGN NEOPLASM OF ZOE 04/24/2016 MICKEY DONOHUE, MEGAN Watts Ot V72.84 EXAM PRE-OPERATIVE NOS 04/24/2016 MICKEY DONOHUE, MEGAN Watts Ot V72.84 EXAM PRE-OPERATIVE NOS 04/24/2016 MICKEY DONOHUE, MEGAN S Ot V72.84 EXAM PRE-OPERATIVE NOS 04/24/2016 MICKEY DONOHUE, MEGAN Watts Ot 530.11 REFLUX ESOPHAGITIS 04/24/2016 MICKEY DONOHUE, MEGAN Watts Ot 531.90 STOMACH ULCER NOS 04/24/2016 MICKEY DONOHUE, MEGAN Watts Ot 537.0 ACQ PYLORIC STENOSIS 04/24/2016 MICKEY DONOHUE, MEGAN Watts Ot V72.84 EXAM PRE-OPERATIVE NOS 04/24/2016 MICKEY DONOHUE, MEGAN Watts Ot V72.84 EXAM PRE-OPERATIVE NOS 04/24/2016 MICKEY DONOHUE, MEGAN S Ot 530.11 REFLUX ESOPHAGITIS 04/24/2016 MICKEY DONOHUE, MEGAN Watts Ot 537.0 ACQ PYLORIC STENOSIS 04/24/2016 MICKEY DONOHUE, MEGAN S Ot V72.84 EXAM PRE-OPERATIVE NOS 04/24/2016 MICKEY DONOHUE, MEGAN Watts Ot 530.11 REFLUX ESOPHAGITIS 04/24/2016 MICKEY DONOHUE, MEGAN Watts Ot 531.90 STOMACH ULCER NOS 04/24/2016 MICKEY DONOHUE, MEGAN Watts Ot 537.0 ACQ PYLORIC STENOSIS 04/24/2016 MICKEY DONOHUE, MEGAN Watts Ot V72.84 EXAM PRE-OPERATIVE NOS 04/24/2016 MEGAN AREVALO MD Ot V72.84 EXAM PRE-OPERATIVE NOS 04/24/2016 MICKEY DONOHUE, MEGAN Watts Ot V72.84 EXAM PRE-OPERATIVE NOS 04/24/2016 MICKEY DONOHUE, MEGAN Watts Ot V72.84 EXAM PRE-OPERATIVE NOS 04/24/2016 MICKEY DONOHUE, MEGAN Watts Ot V72.84 EXAM PRE-OPERATIVE NOS 04/24/2016 Ot Z12.31 ENCNTR SCREEN MAMMOGRAM FOR MALIGNANT NE 04/24/2016 VIDA CHANCE DO Ot R11.2 NAUSEA WITH VOMITING, UNSPECIFIED 04/24/2016 CINDY DONOHUE, CROW Zhao Ot K92.0 HEMATEMESIS 04/24/2016 CINDY DONOHUE, CROW Zhao Ot K92.2 GASTROINTESTINAL HEMORRHAGE, UNSPECIFIED 04/24/2016 CINDY DONOHUE, CROW A Ot R10.13 EPIGASTRIC PAIN 04/24/2016 CROW WHITE MD Ot R11.0 NAUSEA 04/24/2016 CINDY DONOHUE, CROW A Ot Z87.11 PERSONAL HISTORY OF PEPTIC ULCER DISEASE 04/24/2016 CINDY DONOHUE, CROW A Ot Z98.890 OTHER SPECIFIED POSTPROCEDURAL STATES 04/25/2016 Ot 533.90 PEPTIC ULCER NOS 04/25/2016 Ot 719.40 JOINT PAIN- UNSPEC 04/25/2016 Ot 783.21 LOSS OF WEIGHT 04/25/2016 Ot 793.82 INCONCLUSIVE MAMMOGRAM 04/25/2016 Ot V76.12 OTH SCREEN MAMMO-MALIGN NEOPLASM OF ZOE 04/25/2016 MEGAN AREVALO MD Ot V72.84 EXAM PRE-OPERATIVE NOS 04/25/2016 MEGAN AREVALO MD Ot V72.84 EXAM PRE-OPERATIVE NOS 04/25/2016 MICKEY DONOHUE, MEGAN Watts Ot V72.84 EXAM PRE-OPERATIVE NOS 04/25/2016 MEGAN AREVALO MD Ot 530.11 REFLUX ESOPHAGITIS 04/25/2016 MEGAN AREVALO MD Ot 531.90 STOMACH ULCER NOS 04/25/2016 MEGAN AREVALO MD Ot 537.0 ACQ PYLORIC STENOSIS 04/25/2016 MEGAN AREVALO MD Ot V72.84 EXAM PRE-OPERATIVE NOS 04/25/2016 MEGAN AREVALO MD Ot V72.84 EXAM PRE-OPERATIVE NOS 04/25/2016 MICKEY MD, MEGAN S Ot 530.11 REFLUX ESOPHAGITIS 04/25/2016 [...] S Ot V72.84 EXAM PRE-OPERATIVE NOS 04/25/2016 Ot Z12.31 ENCNTR SCREEN MAMMOGRAM FOR MALIGNANT NE 04/25/2016 VIDA CHANCE DO Ot R11.2 NAUSEA WITH VOMITING, UNSPECIFIED 04/26/2016 CINDY DONOHUE, CROW Zhao Ot K92.0 HEMATEMESIS 04/26/2016 CINDY DONOHUE, CROW Zhao Ot K92.2 GASTROINTESTINAL HEMORRHAGE, UNSPECIFIED 04/26/2016 CINDY DONOHUE, CROW Zhao Ot R10.13 EPIGASTRIC PAIN 04/26/2016 CINDY DONOHUE, CROW Zhao Ot R11.0 NAUSEA 04/26/2016 CINDY DONOHUE, CROW Zhao Ot Z87.11 PERSONAL HISTORY OF PEPTIC ULCER DISEASE 04/26/2016 CINDY DONOHUE, CROW Zhao Ot Z98.890 OTHER SPECIFIED POSTPROCEDURAL STATES 04/30/2016 Ot 793.82 INCONCLUSIVE MAMMOGRAM 04/30/2016 Ot V76.12 OTH SCREEN MAMMO-MALIGN NEOPLASM OF ZOE 04/30/2016 MICKEY DONOHUE, MEGAN S Ot V72.84 EXAM PRE-OPERATIVE NOS 04/30/2016 MEGAN AREVALO MD S Ot V72.84 EXAM PRE-OPERATIVE NOS 04/30/2016 MEGAN AREVALO MD S Ot V72.84 EXAM PRE-OPERATIVE NOS 04/30/2016 [...] ESOPHAGITIS 04/30/2016 MICKEY DONOHUE, MEGAN S Ot 537.0 [...] A DGSTV SYS ORG FOL A 05/01/2016 CROW WHITE MD Ot K92.0 HEMATEMESIS 05/01/2016 CINDY DONOHUE, CROW Zhao Ot K92.2 GASTROINTESTINAL HEMORRHAGE, UNSPECIFIED 05/01/2016 CINDY DONOHUE, CROW Zhao Ot R10.13 EPIGASTRIC PAIN 05/01/2016 CINDY DONOHUE, CROW Zhao Ot R11.0 NAUSEA 05/01/2016 CINDY DONOHUE, CROW Zhao Ot Z87.11 PERSONAL HISTORY OF PEPTIC ULCER DISEASE 05/01/2016 CINDY DONOHUE, CROW Zhao Ot Z98.890 OTHER SPECIFIED POSTPROCEDURAL STATES 05/01/2016 KRISSSaundra VIDA VALENCIA Ot R11.2 NAUSEA WITH VOMITING, UNSPECIFIED 05/09/2016 PELAYO DO, JENNYFER Ot D62 ACUTE POSTHEMORRHAGIC ANEMIA 05/09/2016 GITA DO, JENNYFER Ot I95.9 HYPOTENSION, UNSPECIFIED 05/09/2016 GITA DO JENNYFER Ot K25.0 ACUTE GASTRIC ULCER WITH HEMORRHAGE 05/09/2016 GITA VALENCIA JENNYFER Ot K63.5 POLYP OF COLON 05/22/2016 YANI DONOHUE, GARRY Zhao Ot D50.0 IRON DEFICIENCY ANEMIA SECONDARY TO BLOO 05/24/2016 ELY DONOHUE, YONIS Hua Ot A41.9 SEPSIS, UNSPECIFIED ORGANISM 05/24/2016 ELY DONOHUE, YONIS Hua Ot F17.210 NICOTINE DEPENDENCE, CIGARETTES, UNCOMPL 05/24/2016 ELY DONOHUE, YONIS Hua Ot 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.1 PERITONEAL ABSCESS 05/24/2016 ELY DONOHUE, YONIS Hua Ot K86.89 OTHER SPECIFIED DISEASES OF PANCREAS 05/24/2016 YONIS GRAVES MD Ot K92.89 OTHER SPECIFIED DISEASES OF THE DIGESTIV 05/24/2016 ELY DONOHUE, YONIS Hua Ot N39.0 URINARY TRACT INFECTION, SITE NOT SPECIF 05/24/2016 ELY DONOHUE, YONIS Hua Ot R10.30 LOWER ABDOMINAL PAIN, UNSPECIFIED 05/27/2016 YONIS GRAVES MD Ot A41.9 SEPSIS, UNSPECIFIED ORGANISM 05/27/2016 ELY DONOHUE, YONIS Hua Ot F17.210 NICOTINE DEPENDENCE, CIGARETTES, UNCOMPL 05/27/2016 YONIS GRAVES MD T Ot K65.1 PERITONEAL ABSCESS 05/27/2016 YONIS GRAVES MD Ot K86.89 OTHER SPECIFIED DISEASES OF PANCREAS 05/27/2016 ELY DONOHUE, YONIS Hua Ot K92.89 OTHER SPECIFIED DISEASES OF THE DIGESTIV 05/27/2016 YONIS GRAVES MD Ot N39.0 URINARY TRACT INFECTION, SITE NOT SPECIF 05/27/2016 YONIS GRAVES MD Ot R10.30 LOWER ABDOMINAL PAIN, UNSPECIFIED 05/29/2016 YANI DONOHUE, GARRY Zhao Ot D50.0 IRON DEFICIENCY ANEMIA SECONDARY TO BLOO 06/05/2016 ELY DONOHUE, YONIS Hua Ot A41.9 SEPSIS, UNSPECIFIED ORGANISM 06/05/2016 ELY DONOHUE, YONIS Hua Ot F17.210 NICOTINE DEPENDENCE, CIGARETTES, UNCOMPL 06/05/2016 ELY DONOHUE, YONIS Hua Ot K65.1 PERITONEAL ABSCESS 06/05/2016 YONIS GRAVES MD Ot K86.89 OTHER SPECIFIED DISEASES OF PANCREAS 06/05/2016 YONIS GRAVES MD Ot K92.89 OTHER SPECIFIED DISEASES OF THE DIGESTIV 06/05/2016 YONIS GRAVES MD Ot N39.0 URINARY TRACT INFECTION, SITE NOT SPECIF 06/05/2016 YONIS GRAVES MD Ot R10.30 LOWER ABDOMINAL PAIN, UNSPECIFIED 06/23/2016 SHARI DONOHUE, DELPHINE Ot D72.829 ELEVATED WHITE BLOOD CELL COUNT, UNSPECI 06/23/2016 DELPHINE MCCARTHY MD Ot R10.13 EPIGASTRIC PAIN 06/23/2016 DELPHINE MCCARTHY MD Ot R50.9 FEVER, UNSPECIFIED 08/05/2016 Ot 793.82 INCONCLUSIVE MAMMOGRAM 08/05/2016 Ot V76.12 OT SCREEN MAMMO-MALIGN NEOPLASM OF ZOE 08/05/2016 MEGAN AREVALO MD Ot V72.84 EXAM PRE-OPERATIVE NOS 08/05/2016 MEGAN AREVALO MD Ot V72.84 EXAM PRE-OPERATIVE NOS 08/05/2016 MEGAN AREVALO MD Ot V72.84 EXAM PRE-OPERATIVE NOS 08/05/2016 MICKEY DONHOUE, MEGAN Watts Ot 530.11 REFLUX ESOPHAGITIS 08/05/2016 MEGAN AREVALO MD Ot 531.90 STOMACH ULCER NOS 08/05/2016 MICKEY MD, MEGAN S Ot 537.0 ACQ PYLORIC STENOSIS 08/05/2016 MICKEY DONOHUE, MEGAN S Ot V72.84 EXAM PRE-OPERATIVE NOS 08/05/2016 MICKEY DONOHUE, MEGAN S Ot V72.84 EXAM PRE-OPERATIVE NOS 08/05/2016 MICKEY DONOHUE, MEGAN S Ot 530.11 REFLUX ESOPHAGITIS 08/05/2016 MICKEY DONOHUE, MEGAN S Ot 537.0 ACQ PYLORIC STENOSIS 08/05/2016 MICKEY DONOHUE, MEGAN S Ot V72.84 EXAM PRE-OPERATIVE NOS 08/05/2016 MICKEY DONOHUE, MEGAN S Ot 530.11 REFLUX ESOPHAGITIS 08/05/2016 MICKEY DONOHUE, MEGAN S Ot 531.90 STOMACH ULCER NOS 08/05/2016 MICKEY DONOHUE, MEGAN Watst Ot 537.0 ACQ PYLORIC STENOSIS 08/05/2016 MICKEY DONOHUE, MEGAN S Ot V72.84 EXAM PRE-OPERATIVE NOS 08/05/2016 MICKEY DONOHUE, MEGAN S Ot V72.84 EXAM PRE-OPERATIVE NOS 08/05/2016 MICKEY DONOHUE, MEGAN S Ot V72.84 EXAM PRE-OPERATIVE NOS 08/05/2016 MICKEY DONOHUE, MEGAN S Ot V72.84 EXAM PRE-OPERATIVE NOS 08/05/2016 MICKEY DONOHUE, MEGAN S Ot V72.84 EXAM PRE-OPERATIVE NOS 08/05/2016 Ot [...] RAN MERRITT APRN Ot R51 HEADACHE 07/14/2017 MERRITT, PETER J RN ADMISSION Ot Z80.0 FAMILY HISTORY OF MALIGNANT NEOPLASM OF 07/14/2017 MERRITT, RAN Bassett RN ADMISSION Ot Z87.19 PERSONAL HISTORY OF OTHER DISEASES OF TH 07/14/2017 MERRITT, RAN Bassett RN ADMISSION Ot Z87.448 PERSONAL HISTORY OF OTHER DISEASES OF UR 07/14/2017 MERRITTRAN BERNARD Serjio RN ADMISSION Ot Z90.49 ACQUIRED ABSENCE OF OTHER SPECIFIED PART 07/14/2017 RAN MERRITT RN ADMISSION Ot Z90.710 ACQUIRED ABSENCE OF BOTH CERVIX AND UTER 07/14/2017 Ot 793.82 INCONCLUSIVE MAMMOGRAM 07/14/2017 Ot V76.12 OT SCREEN MAMMO-MALIGN NEOPLASM OF ZOE 07/14/2017 MICKEY DONOHUE, MEGAN Watts Ot V72.84 EXAM PRE-OPERATIVE NOS 07/14/2017 MICKEY DONOHUE, MEGAN Watts Ot V72.84 EXAM PRE-OPERATIVE NOS 07/14/2017 MICKEY DONOHUE, MEGAN Watts Ot V72.84 EXAM PRE-OPERATIVE NOS 07/14/2017 MEGAN AREVALO MD Ot 530.11 REFLUX ESOPHAGITIS 07/14/2017 MICKEY DONOHUE, MEGAN S Ot 531.90 STOMACH ULCER NOS 07/14/2017 MICKEY DONOHUE, MEGAN S Ot 537.0 ACQ PYLORIC STENOSIS 07/14/2017 MEGAN AREVALO MD S Ot V72.84 EXAM PRE-OPERATIVE NOS 07/14/2017 MEGAN AREVALO MD S Ot V72.84 EXAM PRE-OPERATIVE NOS 07/14/2017 MICKEY DONOHUE, MEGAN S Ot 530.11 REFLUX ESOPHAGITIS 07/14/2017 MEGAN AREVALO MD S Ot 537.0 ACQ PYLORIC STENOSIS 07/14/2017 MEGAN AREVALO MD S Ot V72.84 EXAM PRE-OPERATIVE NOS 07/14/2017 MEGAN AREVALO MD Ot 530.11 REFLUX ESOPHAGITIS 07/14/2017 MEGAN AREVALO MD S Ot 531.90 STOMACH ULCER NOS 07/14/2017 MEGAN AREVALO MD Ot 537.0 ACQ PYLORIC STENOSIS 07/14/2017 MEGAN AREVALO MD S Ot V72.84 EXAM PRE-OPERATIVE NOS 07/14/2017 MEGAN AREVALO MD Ot V72.84 EXAM PRE-OPERATIVE NOS 07/14/2017 MEGAN AREVALO MD Ot V72.84 EXAM PRE-OPERATIVE NOS 07/14/2017 MICKEY DONOHUE, MEGAN Watts Ot V72.84 EXAM PRE-OPERATIVE NOS 07/14/2017 MEGAN AREVALO MD Ot V72.84 EXAM PRE-OPERATIVE NOS 07/14/2017 Ot Z12.31 ENCNTR SCREEN MAMMOGRAM FOR MALIGNANT NE 07/14/2017 MERON VALENCIA VIDA Mckenna Ot R11.2 NAUSEA WITH VOMITING, UNSPECIFIED 07/14/2017 YANI DONOHUE, GARRY Zhao Ot D50.0 IRON DEFICIENCY ANEMIA SECONDARY TO BLOO 07/16/2017 RAN MERRITT APRN Ot G43.909 MIGRAINE, UNSP, NOT INTRACTABLE, WITHOUT 07/16/2017 RAN MERRITT APRN Ot R51 HEADACHE 07/16/2017 RAN MERRITT APRN Ot Z80.0 FAMILY HISTORY OF MALIGNANT NEOPLASM OF 07/16/2017 RAN MERRITT RN ADMISSION Ot Z87.19 PERSONAL HISTORY OF OTHER DISEASES OF TH 07/16/2017 RAN MERRITT APRN Ot Z87.448 PERSONAL HISTORY OF OTHER DISEASES OF UR 07/16/2017 RAN MERRITT APRN Ot Z90.49 ACQUIRED ABSENCE OF OTHER SPECIFIED PART 07/16/2017 RAN MERRITT RN ADMISSION Ot Z90.710 ACQUIRED ABSENCE OF BOTH CERVIX AND UTER 08/08/2017 MICKEY DONOHUE, MEGAN Watts Ot V72.84 EXAM PRE-OPERATIVE NOS 08/08/2017 MEGAN AREVALO MD Ot V72.84 EXAM PRE-OPERATIVE NOS 08/08/2017 MEGAN AREVALO MD Ot V72.84 EXAM PRE-OPERATIVE NOS 08/08/2017 MICKEY DONOHUE, MEGAN Watts Ot 530.11 REFLUX ESOPHAGITIS 08/08/2017 MICKEY DONOHUE, MEGAN Watts Ot 531.90 STOMACH ULCER NOS 08/08/2017 MEGAN AREVALO MD Ot 537.0 ACQ PYLORIC STENOSIS 08/08/2017 MEGAN AREVALO MD Ot V72.84 EXAM PRE-OPERATIVE NOS 08/08/2017 MEGAN AREVALO MD Ot V72.84 EXAM PRE-OPERATIVE NOS 08/08/2017 MEGAN AREVALO MD Ot 530.11 REFLUX ESOPHAGITIS 08/08/2017 MEGAN AREVALO MD Ot 537.0 ACQ PYLORIC STENOSIS 08/08/2017 MEGAN AREVALO MD Ot V72.84 EXAM PRE-OPERATIVE NOS 08/08/2017 MICKEY DONOHUE, MEGAN Watts Ot 530.11 REFLUX ESOPHAGITIS 08/08/2017 MICKEY DONOHUE, MEGAN S Ot 531.90 STOMACH ULCER NOS 08/08/2017 MICKEY DONOHUE, MEGAN Watts Ot 537.0 ACQ PYLORIC STENOSIS 08/08/2017 MICKEY DONOHUE, MEGAN S Ot V72.84 EXAM PRE-OPERATIVE NOS 08/08/2017 MICKEY DONOHUE, MEGAN S Ot V72.84 EXAM PRE-OPERATIVE NOS 08/08/2017 MICKEY DONOHUE, MEGAN S Ot V72.84 EXAM PRE-OPERATIVE NOS 08/08/2017 MICKEY DONOHUE, MEGAN S Ot V72.84 EXAM PRE-OPERATIVE NOS 08/08/2017 MICKEY DONOHUE, MEGAN S Ot V72.84 EXAM PRE-OPERATIVE NOS 08/08/2017 Ot Z12.31 ENCNTR SCREEN MAMMOGRAM FOR MALIGNANT NE 08/08/2017 MERON VALENCIA, VIDA Andres Ot R11.2 NAUSEA WITH VOMITING, UNSPECIFIED 08/08/2017 YANI DONOHUE, GARRY Zhao Ot D50.0 IRON DEFICIENCY ANEMIA SECONDARY TO BLOO 08/31/2017 MICKEY DONOHUE, MEGAN S Ot V72.84 EXAM PRE-OPERATIVE NOS 08/31/2017 MICKEY DONOHUE, MEGAN S Ot V72.84 EXAM PRE-OPERATIVE NOS 08/31/2017 MICKEY DONOHUE, MEGAN S Ot V72.84 EXAM PRE-OPERATIVE NOS 08/31/2017 MICKEY DONOHUE, MEGAN S Ot 530.11 REFLUX ESOPHAGITIS 08/31/2017 MICKEY DONOHUE, MEGAN S Ot 531.90 STOMACH ULCER NOS 08/31/2017 MICKEY DONOHUE, MEGAN S Ot 537.0 ACQ PYLORIC STENOSIS 08/31/2017 MICKEY DONOHUE, MEGAN S Ot V72.84 EXAM PRE-OPERATIVE NOS 08/31/2017 MICKEY DONOHUE, MEGAN S Ot V72.84 EXAM PRE-OPERATIVE NOS 08/31/2017 MICKEY DONOHUE, MEGAN Watts Ot 530.11 REFLUX ESOPHAGITIS 08/31/2017 MICKEY DONOHUE, MEGAN S Ot 537.0 ACQ PYLORIC STENOSIS 08/31/2017 MICKEY DONOHUE, MEGAN S Ot V72.84 EXAM PRE-OPERATIVE NOS 08/31/2017 MICKEY DONOHUE, MEGAN S Ot 530.11 REFLUX ESOPHAGITIS 08/31/2017 MICKEY DONOHUE, MEGAN S Ot 531.90 STOMACH ULCER NOS 08/31/2017 MICKEY DONOHUE, MEGAN S Ot 537.0 ACQ PYLORIC STENOSIS 08/31/2017 MICKEY DONOHUE, MEGAN S Ot V72.84 EXAM PRE-OPERATIVE NOS 08/31/2017 MICKEY DONOHUE, MEGAN S Ot V72.84 EXAM PRE-OPERATIVE NOS 08/31/2017 MICKEY DONOHUE, MEGAN S Ot V72.84 EXAM PRE-OPERATIVE NOS 08/31/2017 MICKEY DONOHUE, MEGAN S Ot V72.84 EXAM PRE-OPERATIVE NOS 08/31/2017 MICKEY DONOHUE, MEGAN S Ot V72.84 EXAM PRE-OPERATIVE NOS 08/31/2017 Ot Z12.31 ENCNTR SCREEN MAMMOGRAM FOR MALIGNANT NE 08/31/2017 VIDA CHANCE DO Ot R11.2 NAUSEA WITH VOMITING, UNSPECIFIED 08/31/2017 YANI DONOHUE, GARRY Zhao Ot D50.0 IRON DEFICIENCY ANEMIA SECONDARY TO BLOO 08/31/2017 MARCELO MONACO Ot G43.909 MIGRAINE, UNSP, NOT INTRACTABLE, WITHOUT 08/31/2017 MARCELO MONACO Ot K29.70 GASTRITIS, UNSPECIFIED, WITHOUT BLEEDING 08/31/2017 MARCELO MONACO Ot N39.0 URINARY TRACT INFECTION, SITE NOT SPECIF 08/31/2017 MARCELO MONACO Ot R10.13 EPIGASTRIC PAIN 08/31/2017 MARCELO MONACO Ot Z87.19 PERSONAL HISTORY OF OTHER DISEASES OF TH 08/31/2017 MARCELO MONACO Ot Z87.42 PERSONAL HISTORY OF OTH DISEASES OF THE 08/31/2017 MARCLEO MONACO Ot Z87.891 PERSONAL HISTORY OF NICOTINE DEPENDENCE 08/31/2017 MARCELO MONACO Ot Z88.1 ALLERGY STATUS TO OTHER ANTIBIOTIC AGENT 08/31/2017 MARCELO MONACO Ot Z88.2 ALLERGY STATUS TO SULFONAMIDES STATUS 08/31/2017 MARCELO MONACO Ot Z88.5 ALLERGY STATUS TO NARCOTIC AGENT STATUS 08/31/2017 MARCELO MONACO Ot Z88.7 ALLERGY STATUS TO SERUM AND VACCINE STAT 08/31/2017 MARCELO MONACO Ot Z90.710 ACQUIRED ABSENCE OF BOTH CERVIX AND UTER 09/02/2017 MARCELO MONACO Ot G43.909 MIGRAINE, UNSP, NOT INTRACTABLE, WITHOUT 09/02/2017 MARCELO MONACO Ot K29.70 GASTRITIS, UNSPECIFIED, WITHOUT BLEEDING 09/02/2017 MARCELO MONACO Ot N39.0 URINARY TRACT INFECTION, SITE NOT SPECIF 09/02/2017 MARCELO MONACO Ot R10.13 EPIGASTRIC PAIN 09/02/2017 MARCELO MONACO Ot Z87.19 PERSONAL HISTORY OF OTHER DISEASES OF TH 09/02/2017 MARCELO MONACO Ot Z87.42 PERSONAL HISTORY OF OTH DISEASES OF THE 09/02/2017 MARCELO MONACO Ot Z87.891 PERSONAL HISTORY OF NICOTINE DEPENDENCE 09/02/2017 MARCELO MONACO Ot Z88.1 ALLERGY STATUS TO OTHER ANTIBIOTIC AGENT 09/02/2017 MARCELO MONACO Ot Z88.2 ALLERGY STATUS TO SULFONAMIDES STATUS 09/02/2017 MARCELO MONACO Ot Z88.5 ALLERGY STATUS TO NARCOTIC AGENT STATUS 09/02/2017 MARCELO MONACO Ot Z88.7 ALLERGY STATUS TO SERUM AND VACCINE STAT 09/02/2017 MARCELO MONACO Ot Z90.710 ACQUIRED ABSENCE OF BOTH CERVIX AND UTER 09/10/2017 RITU VANCE DO Ot G89.29 OTHER CHRONIC PAIN 09/10/2017 RITU VANCE DO Ot M25.562 PAIN IN LEFT KNEE 09/24/2017 RITU VANCE DO Ot G89.29 OTHER CHRONIC PAIN 09/24/2017 RITU VANCE DO Ot M25.562 PAIN IN LEFT KNEE 11/20/2017 MEGAN AREVALO MD Ot V72.84 EXAM PRE-OPERATIVE NOS 11/20/2017 MEGAN AREVALO MD Ot V72.84 EXAM PRE-OPERATIVE NOS 11/20/2017 MEGAN AREVALO MD Ot V72.84 EXAM PRE-OPERATIVE NOS 11/20/2017 MEGAN AREVALO MD Ot 530.11 REFLUX ESOPHAGITIS 11/20/2017 MEGAN AREVALO MD Ot 531.90 STOMACH ULCER NOS 11/20/2017 MEGAN AREVALO MD Ot 537.0 ACQ PYLORIC STENOSIS 11/20/2017 MICKEY MD, MEGAN S Ot V72.84 EXAM PRE-OPERATIVE NOS 11/20/2017 MICKEY DONOHUE, MEGAN S Ot V72.84 EXAM PRE-OPERATIVE NOS 11/20/2017 MICKEY DONOHUE, MEGAN S Ot 530.11 REFLUX ESOPHAGITIS 11/20/2017 MICKEY DONOHUE, MEGAN S Ot 537.0 ACQ PYLORIC STENOSIS 11/20/2017 MICKEY DONOHUE, MEGAN S Ot V72.84 EXAM PRE-OPERATIVE NOS 11/20/2017 MICKEY DONOHUE, MEGAN S Ot 530.11 REFLUX ESOPHAGITIS 11/20/2017 MICKEY DONOHUE, MEGAN S Ot 531.90 STOMACH ULCER NOS 11/20/2017 MICKEY DONOHUE, MEGAN S Ot 537.0 ACQ PYLORIC STENOSIS 11/20/2017 MICKEY DONOHUE, MEGAN S Ot V72.84 EXAM PRE-OPERATIVE NOS 11/20/2017 MICKEY DONOHUE, MEGAN S Ot V72.84 EXAM PRE-OPERATIVE NOS 11/20/2017 MICKEY DONOHUE, MEGAN S Ot V72.84 EXAM PRE-OPERATIVE NOS 11/20/2017 MICKEY DONOHUE, MEGAN S Ot V72.84 EXAM PRE-OPERATIVE NOS 11/20/2017 MICKEY DONOHUE, MEGAN S Ot V72.84 EXAM PRE-OPERATIVE NOS 11/20/2017 Ot Z12.31 ENCNTR SCREEN MAMMOGRAM FOR MALIGNANT NE 11/20/2017 VIDA CHANCE DO Ot R11.2 NAUSEA WITH VOMITING, UNSPECIFIED 11/20/2017 YANI DONOHUE, GARRY Zhao Ot D50.0 IRON DEFICIENCY ANEMIA SECONDARY TO BLOO 11/20/2017 RITU VANCE DO Ot G89.29 OTHER CHRONIC PAIN 11/20/2017 RITU VANCE DO Ot M25.562 PAIN IN LEFT KNEE 11/28/2017 OTHER, UNLISTED Ot M25.562 PAIN IN LEFT KNEE 11/28/2017 OTHER, UNLISTED Ot Z53.8 PROCEDURE AND TREATMENT NOT CARRIED OUT 11/30/2017 JANI DONOHUE, PRIMO Bassett Ot D64.9 ANEMIA, UNSPECIFIED 11/30/2017 JANI DONOHUE, PRIMO Bassett Ot F15.10 OTHER STIMULANT ABUSE, UNCOMPLICATED 11/30/2017 JANI DONOHUE, PRIMO Bassett Ot G43.909 MIGRAINE, UNSP, NOT INTRACTABLE, WITHOUT 11/30/2017 JANI PRIMO DONOHUE Ot K52.9 NONINFECTIVE GASTROENTERITIS AND COLITIS 11/30/2017 PRIMO GUNTER MD Ot R10.31 RIGHT LOWER QUADRANT PAIN 11/30/2017 PRIMO GUNTER MD Ot Z87.19 PERSONAL HISTORY OF OTHER DISEASES OF TH 11/30/2017 PRIMO GUNTER MD Ot Z87.39 PERSONAL HISTORY OF DISEASES OF THE MS S 11/30/2017 PRIMO GUNTER MD Ot Z87.42 PERSONAL HISTORY OF OTH DISEASES OF THE 11/30/2017 PRIMO GUNTER MD Ot Z87.891 PERSONAL HISTORY OF NICOTINE DEPENDENCE 11/30/2017 PRIMO GUNTER MD Ot Z88.1 ALLERGY STATUS TO OTHER ANTIBIOTIC AGENT 11/30/2017 PRIMO GUNTER MD Ot Z88.2 ALLERGY STATUS TO SULFONAMIDES STATUS 11/30/2017 PRIMO GUNTER MD Ot Z88.5 ALLERGY STATUS TO NARCOTIC AGENT STATUS 11/30/2017 PRIMO GUNTER MD Ot Z88.7 ALLERGY STATUS TO SERUM AND VACCINE STAT 11/30/2017 PRIMO GUNTER MD Ot Z90.710 ACQUIRED ABSENCE OF BOTH CERVIX AND UTER 11/30/2017 PRIMO GUNTER MD Ot Z98.890 OTHER SPECIFIED POSTPROCEDURAL STATES 12/02/2017 PRIMO GUNTER MD Ot D64.9 ANEMIA, UNSPECIFIED 12/02/2017 PRIMO GUNTER MD Ot F15.10 OTHER STIMULANT ABUSE, UNCOMPLICATED 12/02/2017 PRIMO GUNTER MD Ot G43.909 MIGRAINE, UNSP, NOT INTRACTABLE, WITHOUT 12/02/2017 PRIMO GUNTER MD Ot K52.9 NONINFECTIVE GASTROENTERITIS AND COLITIS 12/02/2017 PRIMO GUNTER MD Ot R10.31 RIGHT LOWER QUADRANT PAIN 12/02/2017 PRIMO GUNTER MD Ot Z87.19 PERSONAL HISTORY OF OTHER DISEASES OF 12/02/2017 PRIMO GUNTER MD Ot Z87.39 PERSONAL HISTORY OF DISEASES OF THE MS S 12/02/2017 PRIMO GUNTER MD Ot Z87.42 PERSONAL HISTORY OF OTH DISEASES OF THE 12/02/2017 PRIMO GUNTER MD Ot Z87.891 PERSONAL HISTORY OF NICOTINE DEPENDENCE 12/02/2017 PRIMO GUNTER MD Ot Z88.1 ALLERGY STATUS TO OTHER ANTIBIOTIC AGENT 12/02/2017 PRIMO GUNTER MD Ot Z88.2 ALLERGY STATUS TO SULFONAMIDES STATUS 12/02/2017 PRIMO GUNTER MD Ot Z88.5 ALLERGY STATUS TO NARCOTIC AGENT STATUS 12/02/2017 PRIMO GUNTER MD Ot Z88.7 ALLERGY STATUS TO SERUM AND VACCINE STAT 12/02/2017 PRIMO GUNTER MD Ot Z90.710 ACQUIRED ABSENCE OF BOTH CERVIX AND UTER 12/02/2017 PRIMO GUNTER MD Ot Z98.890 OTHER SPECIFIED POSTPROCEDURAL STATES 12/03/2017 IRENE DONOHUE, PHILIPP Harris Ot M71.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 [ORDAZ] 12/03/2017 IRENE DONOHUE, PHILIPP Harris Ot M71.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 [ORDAZ] 12/18/2017 IRENE DONOHUE, PHILIPP Harris Ot M71.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 [ORDAZ] 02/18/2018 Cynthia Vilchis 372.00 ACUTE CONJUNCTIVITIS, UNSPECIFIED 02/18/2018 Cynthia Vilchis H10.33 UNSPECIFIED ACUTE CONJUNCTIVITIS, BILATERAL 06/21/2018 Ran Merritt 521.00 DENTAL CARIES, UNSPECIFIED 06/21/2018 Ran Merritt K02.9 DENTAL CARIES, UNSPECIFIED Procedures Code Description Performed By Performed On 38.93 VENOUS CATHETERIZATION NEC 02/21/2012 54.51 LAPAROSCOP LYSIS-PERITONEAL ADHES 02/21/2012 94678 ROUTINE VENIPUNCTURE 10/12/2013 20631 CMP 10/13/2013 0785938 GFR CALC (RESULT ONLY) 10/13/2013 57878 LIPASE 10/13/2013 03625 ROUTINE VENIPUNCTURE 03/09/2014 06560 CBC 03/09/2014 16980 MYCOPLASMA ANTIBODY 03/09/2014 43159 OXIMETRY 03/09/2014 41337 UA W/ CULTURE IF INDICATED 04/06/2014 39126 CULTURE URINE 04/07/2014 87295 INFLUENZA A & B (IN-HOUSE) 06/27/2014 [id number] CONTROL BLEEDING IN GASTROINTESTINAL TRA 04/28/2016 Results [...] ABO+Rh group OP NRG Transfusion band number [id number] NRG Blood group antibody screen NEGATIVE NRG [...] panel - 04/28/16 11:43 ABO+Rh group OP NRG Transfusion band number [id number] [facility] Blood group antibody screen NEGATIVE [facility] Comprehensive metabolic panel - 04/28/16 11:43 [...] or plasma urea nitrogen/creatinine mass ratio 23 [facility] Serum or plasma creatinine measurement with calculation of estimated glomerular filtration rate > [facility] Serum or plasma glucose measurement (mass/volume) 116 [...] culture - 05/24/16 11:15 Bacterial urine culture [id number] NRG COLONY COUNT >100,000/ML NRG FTX;REPORTABLE SENSITIVITY [...] susceptibility test by minimum inhibitory concentration - NRG Blood lactic acid measurement (moles/volume) - 05/24/16 [...] 15:00 Bacteria identification in wound by culture [id number] NR FREE TEXT EXTERNAL SENSTIVITY REPORTED 06/24 [...] blood basophil count (count/volume) 0.0 10*3/uL 0.0-0.1 Urine Culture, Routine - 09/12/16 14:56 Urine Culture, Routine Note Erythrocyte sedimentation rate by westergren method - 07/14/17 17:00 Erythrocyte sedimentation rate by westergren method 14 mm 0-20 Complete urinalysis with reflex to culture - 08/31/17 18:15 Urine color determination YELLOW NRG Urine clarity determination VERY CLOUDY NRG Urine pH measurement by test strip 6.5 5-9 Specific gravity of urine by test strip 1.015 1.016- 1.022 Urine protein assay by test [...] NORMAL Urine leukocyte esterase detection by dipstick 3+ NEGATIVE Automated urine sediment erythrocyte count by [...] culture YES NRG Bacterial urine culture - 08/31/17 18:15 Bacterial urine culture [id number] NRG COLONY COUNT >100,000/ML NRG FTX;REPORTABLE SENSITIVITY REPORTED 09/02/17 8:05 NRG FREE TEXT ENTRY 2 PLUS, NRG FREE TEXT ENTRY 3 MIXED GRAM POSITIVES <10,000/ML NR Bacterial susceptibility panel - 08/31/17 18:15 Gentamicin susceptibility test by minimum inhibitory concentration > = NRG Trimethoprim/sulfamethoxazole susceptibility test by minimum inhibitoryconcentration R NRG Ampicillin susceptibility test by minimum inhibitory concentration > = NRG Tobramycin susceptibility test by minimum inhibitory concentration 8 NRG Cefazolin susceptibility test by minimum inhibitory concentration < = NRG Ceftriaxone susceptibility test by minimum inhibitory concentration <= NRG Ampicillin/sulbactam susceptibility test by minimum inhibitory concentration I NRG Piperacillin/tazobactam susceptibility test by minimum inhibitory concentration S NRG Ciprofloxacin susceptibility test by minimum inhibitory concentration >= NRG Meropenem susceptibility test by minimum inhibitory concentration < = NRG Nitrofurantoin susceptibility test by minimum inhibitory concentration <= NRG Aztreonam susceptibility test by minimum inhibitory concentration < = NRG Extended spectrum beta lactamase (ESBL) producing bacteria susceptibility test by minimum inhibitory concentration - NRG Amikacin susceptibility test by minimum inhibitory concentration S NRG Complete blood count (CBC) with automated white blood cell (WBC) differential - 08/31/17 18:27 Blood leukocytes automated count (number/volume) 11.3 10*3/uL 4.3-11.0 Blood erythrocytes automated count (number/volume) 4.36 10*6/uL 4.35-5.85 Venous blood hemoglobin measurement (mass/volume) 13.7 g/dL 11.5-16.0 Blood hematocrit (volume fraction) 41 % 35-52 Automated erythrocyte mean corpuscular volume 95 [foz_us] 80-99 Automated erythrocyte mean corpuscular hemoglobin (mass per erythrocyte) 31 pg 25-34 Automated erythrocyte mean corpuscular hemoglobin concentration measurement ( mass/volume) 33 g/dL 32-36 Automated erythrocyte distribution width ratio 13.6 % 10.0-14.5 Automated blood platelet count (count/volume) 428 10*3/uL 130-400 Automated blood platelet mean volume measurement 9.5 [foz_us] 7.4-10.4 Automated blood neutrophils/100 leukocytes 60 % 42-75 Automated blood lymphocytes/100 leukocytes 28 % 12-44 Blood monocytes/100 leukocytes 10 % 0-12 Automated blood eosinophils/100 leukocytes 2 % 0-10 Automated blood basophils/100 leukocytes 0 % 0-10 Blood neutrophils automated count (number/volume) 6.8 10*3 1.8-7.8 Blood lymphocytes automated count (number/volume) 3.2 10*3 1.0-4.0 Blood monocytes automated count (number/volume) 1.1 10*3 0.0-1.0 Automated eosinophil count 0.2 10*3/uL 0.0-0.3 Automated blood basophil count (count/volume) 0.1 10*3/uL 0.0-0.1 Comprehensive metabolic panel - 08/31/17 18:27 Serum or plasma sodium measurement (moles/volume) 143 mmol/L 135-145 Serum or plasma potassium measurement (moles/volume) 3.7 mmol/L 3.6-5.0 Serum or plasma chloride measurement (moles/volume) 109 mmol/L 98-107 Carbon dioxide 24 mmol/L 21-32 Serum or plasma anion gap determination (moles/volume) 10 mmol/L 5-14 Serum or plasma urea nitrogen measurement (mass/volume) 11 mg/dL 7-18 Serum or plasma creatinine measurement (mass/volume) 0.63 mg/dL 0.60-1.30 Serum or plasma urea nitrogen/creatinine mass ratio 17 NRG Serum or plasma creatinine measurement with calculation of estimated glomerular filtration rate > NRG Serum or plasma glucose measurement (mass/volume) 114 mg/dL 70-105 Serum or plasma calcium measurement (mass/volume) 8.2 mg/dL 8.5-10.1 Serum or plasma total bilirubin measurement (mass/volume) < mg/dL 0.1-1.0 Serum or plasma alkaline phosphatase measurement (enzymatic activity/volume) 86 U/L 40-136 Serum or plasma aspartate aminotransferase measurement (enzymatic activity/ volume) 17 U/L 5-34 Serum or plasma alanine aminotransferase measurement (enzymatic activity/volume ) 17 U/L 0-55 Serum or plasma protein measurement (mass/volume) 5.3 g/dL 6.4-8.2 Serum or plasma albumin measurement (mass/volume) 2.8 g/dL 3.2-4.5 Lipase - 08/31/17 18:27 Lipase 31 U/L 8-78 Serum or plasma C reactive protein measurement (mass/volume) - 08/31/17 18:27 Serum or plasma C reactive protein measurement (mass/volume) 0.73 mg /dL 0.00-0.50 Complete blood count (CBC) with automated white blood cell (WBC) differential - 11/30/17 00:25 Blood leukocytes automated count (number/volume) 14.8 10*3/uL 4.3-11.0 Blood erythrocytes automated count (number/volume) 3.74 10*6/uL 4.35-5.85 Venous blood hemoglobin measurement (mass/volume) 10.3 g/dL 11.5-16.0 Blood hematocrit (volume fraction) 32 % 35-52 Automated erythrocyte mean corpuscular volume 85 [foz_us] 80-99 Automated erythrocyte mean corpuscular hemoglobin (mass per erythrocyte) 28 pg 25-34 Automated erythrocyte mean corpuscular hemoglobin concentration measurement ( mass/volume) 32 g/dL 32-36 Automated erythrocyte distribution width ratio 16.2 % 10.0-14.5 Automated blood platelet count (count/volume) 503 10*3/uL 130-400 Automated blood platelet mean volume measurement 9.7 [foz_us] 7.4-10.4 Automated blood neutrophils/100 leukocytes 79 % 42-75 Automated blood lymphocytes/100 leukocytes 12 % 12-44 Blood monocytes/100 leukocytes 8 % 0-12 Automated blood eosinophils/100 leukocytes 1 % 0-10 Automated blood basophils/100 leukocytes 0 % 0-10 Blood neutrophils automated count (number/volume) 11.7 10*3 1.8-7.8 Blood lymphocytes automated count (number/volume) 1.7 10*3 1.0-4.0 Blood monocytes automated count (number/volume) 1.2 10*3 0.0-1.0 Automated eosinophil count 0.1 10*3/uL 0.0-0.3 Automated blood basophil count (count/volume) 0.0 10*3/uL 0.0-0.1 Complete urinalysis with reflex to culture - 11/30/17 00:25 Urine color determination YELLOW NRG Urine clarity determination CLEAR NRG Urine pH measurement by test strip 6.5 5-9 Specific gravity of urine by test [...] NORMAL Urine leukocyte esterase detection by dipstick 1+ NEGATIVE Automated urine sediment erythrocyte count by microscopy (number/high power field) RARE NRG Automated urine sediment leukocyte count by microscopy (number/high power field ) RARE NRG Bacteria detection in urine sediment by light microscopy TRACE NRG Squamous epithelial cells detection in urine sediment by light microscopy 2-5 NRG Crystals detection in urine sediment by light microscopy NONE NRG Casts detection in urine sediment by light microscopy NONE NRG Mucus detection in urine sediment by light microscopy NEGATIVE NRG Complete urinalysis with reflex to culture NO NRG Blood manual differential performed detection - 11/30/17 00:25 Blood monocytes/100 leukocytes 8 % NRG Manual blood segmented neutrophils/100 leukocytes 72 % NRG Blood band neutrophils/100 leukocytes 0 % NRG Manual blood lymphocytes/100 leukocytes 18 % NRG Manual eosinophils/100 leukocytes in nose 2 % NRG Manual blood basophils/100 leukocytes 0 % NRG Blood anisocytosis detection by light microscopy SLIGHT NRG Blood macrocytes detection by light microscopy SLIGHT NRG Blood ovalocytes detection by light microscopy SLIGHT NRG Blood hypochromia detection by light microscopy MODERATE NRG Comprehensive metabolic panel - 11/30/17 00:25 Serum or plasma sodium measurement (moles/volume) 144 mmol/L 135-145 Serum or plasma potassium measurement (moles/volume) 3.3 mmol/L 3.6-5.0 Serum or plasma chloride measurement (moles/volume) 112 mmol/L 98-107 Carbon dioxide 22 mmol/L 21-32 Serum or plasma anion gap determination (moles/volume) 10 mmol/L 5-14 Serum or plasma urea nitrogen measurement (mass/volume) 9 mg/dL 7-18 Serum or plasma creatinine measurement (mass/volume) 0.63 mg/dL 0.60-1.30 Serum or plasma urea nitrogen/creatinine mass ratio 14 NRG Serum or plasma creatinine measurement with calculation of estimated glomerular filtration rate > NRG Serum or plasma glucose measurement (mass/volume) 116 mg/dL 70-105 Serum or plasma calcium measurement (mass/volume) 8.2 mg/dL 8.5-10.1 Serum or plasma total bilirubin measurement (mass/volume) < mg/dL 0.1-1.0 Serum or plasma alkaline phosphatase measurement (enzymatic activity/volume) 67 U/L 40-136 Serum or plasma aspartate aminotransferase measurement (enzymatic activity/ volume) 11 U/L 5-34 Serum or plasma alanine aminotransferase measurement (enzymatic activity/volume ) 8 U/L 0-55 Serum or plasma protein measurement (mass/volume) 6.0 g/dL 6.4-8.2 Serum or plasma albumin measurement (mass/volume) 2.8 g/dL 3.2-4.5 Magnesium - 11/30/17 00:25 Magnesium 1.9 mg/dL 1.8-2.4 Lipase - 11/30/17 00:25 Lipase 53 U/L 8-78 Urine drug screening test - 11/30/17 00:25 Urine phencyclidine detection by screening method NEGATIVE NEGATIVE Urine benzodiazepines detection by screening method POSITIVE NEGATIVE Urine cocaine detection NEGATIVE NEGATIVE Urine amphetamines detection by screening method NEGATIVE NEGATIVE Urine methamphetamine detection by screening method POSITIVE NEGATIVE Urine cannabinoids detection by screening method POSITIVE NEGATIVE Urine opiates detection by screening method NEGATIVE NEGATIVE Urine barbiturates detection NEGATIVE NEGATIVE Screening urine tricyclic antidepressants detection NEGATIVE NEGATIVE Urine methadone detection by screening method NEGATIVE NEGATIVE Urine oxycodone detection NEGATIVE NEGATIVE Urine propoxyphene detection NEGATIVE NEGATIVE Other Culture - 02/18/18 19:03 FINAL CULTURE RESULTS 1) Coagulase negative Staphylococcus 2) Yeast 3) possible fastidious, sent to Reference lab for BRITNI and ID MEDIA PLATED Setup at 19:19 on 02/18/2018 A1C - 03/25/18 09:19 HEMOGLOBIN A1c 5.1 % of total Hgb <5.7 Encounters ACCT No. Visit Date/Time Discharge Status Pt. Type Provider Facility Loc./Unit Complaint [id number] 10/03/2014 11:20:00 10/03/2014 23:59:59 CLS Outpatient JONATHAN TODD DO [id number] 06/27/2014 16:12:00 06/27/2014 23:59:59 CLS Outpatient WHITLEY ROCHE APRN [id number] 05/10/2014 15:51:00 05/10/2014 23:59:59 CLS Outpatient ZAC YEUNG APRN [id number] 04/06/2014 08:50:00 04/06/2014 23:59:59 CLS Outpatient AZC YEUNG APRN [id number] 03/09/2014 15:13:00 03/09/2014 23:59:59 CLS Outpatient ZAC YEUNG APRN [id number] 10/13/2013 00:00:00 10/13/2013 23:59:59 CLS Outpatient TAMMY SIMS DDS [id number] 06/21/2018 15:04:00 06/21/2018 16:02:00 DIS Outpatient Ran Merritt [facility] ER [id number] 02/18/2018 18:40:00 02/18/2018 19:15:00 DIS Outpatient Cynthia Vilchis [id number] 11/09/2017 12:10:00 11/09/2017 23:59:00 DIS Outpatient Lucia Brown [id number] 11/09/2017 00:00:00 11/09/2017 23:59:00 DIS Outpatient PHILIPP BONILLA [id number] 02/18/2018 19:50:11 Document Registration [id number] 12/02/2017 06:49:00 12/02/2017 23:59:59 CLS Outpatient PHILIPP BONILLA MD [facility] RAD LEFT KNEE PAIN [id number] 11/30/2017 00:05:00 11/30/2017 03:56:00 DIS Emergency PRIMO GUNTER MD [facility] ER AB PAIN [id number] 11/27/2017 07:53:00 11/27/2017 23:59:59 CLS Outpatient OTHER, UNLISTED [facility] RAD LEFT KNEE PAIN [id number] 09/09/2017 08:19:00 09/09/2017 23:59:59 CLS Outpatient RITU VANCE DO [facility] RAD M25.562 G89.29 [id number] 09/05/2017 09:21:00 09/05/2017 23:59:59 CLS Preadmit NASEEM BELLE MD [facility] RAD ROUTINE [id number] 08/31/2017 18:08:00 08/31/2017 21:17:00 DIS Emergency MARCELO MONACO [facility] ER STOMACH PAIN [id number] 07/14/2017 15:23:00 07/14/2017 18:23:00 DIS Emergency MERRITTRAN APRN [facility] ER HEADACHE [id number] 08/05/2016 13:36:00 08/05/2016 15:35:00 DIS Emergency SONNY KRISHNAN DO Kamryn [facility] ER FEVER COUGH/CHEST CONGESTION EARACHE ABD PAIN [id number] 06/22/2016 20:10:00 06/23/2016 14:10:00 DIS Inpatient DELPHIEN MCCARTHY MD [facility] 4TH ABDOMINAL PAIN, LEUKOCYTOSIS, FEVER [id number] 05/24/2016 09:56:00 05/24/2016 12:55:00 DIS Emergency YONIS GRAVES MD [facility] ER L SIDED ABD PAIN [id number] 05/21/2016 10:11:00 05/21/2016 23:59:59 CLS Outpatient GARRY LOMELI MD [facility] LAB CMP [id number] 04/28/2016 14:21:00 04/30/2016 13:55:00 DIS Inpatient JENNYFER PELAYO DO [facility] 4TH UGI BLEED/HYPOTENSION [id number] 04/24/2016 13:12:00 04/24/2016 14:55:00 DIS Emergency CROW WHITE MD [facility] ER ABD PAIN/VOMITING BLOOD [id number] 04/23/2016 13:55:00 04/23/2016 23:59:59 CLS Outpatient VIDA CHANCE DO [facility] LAB NAUSEA AND VOMITING [id number] 04/06/2015 12:03:00 04/06/2015 14:18:00 DIS Emergency MARCELO MONACO [facility] ER DENTAL PAIN [id number] 10/17/2014 13:34:00 10/17/2014 16:14:00 DIS Emergency YONIS GRAVES MD [facility] ER [id number] 07/14/2014 08:00:00 07/14/2014 23:59:59 CLS Preadmit MEGAN AREVALO MD [facility] SDC DYSPHASIA [id number] 07/13/2014 07:15:00 07/13/2014 23:59:59 CLS Outpatient MEGAN AREVALO MD [facility] PREOP DYSPHASIA [id number] 07/09/2014 21:22:00 07/09/2014 23:36:00 DIS Emergency ARIELLA VALENCIA SONNY Kamryn [facility] ER DIZZINESS, DISCOLORED STOOLS [id number] 07/08/2014 16:08:00 07/08/2014 19:07:00 DIS Emergency CROW WHITE MD [facility] ER DISCOLORED URINE,ABD PAIN [id number] 06/09/2014 07:00:00 06/09/2014 09:50:00 DIS Outpatient MEGAN AREVALO MD [facility] SDC STRICTURE [id number] 06/08/2014 13:02:00 06/08/2014 23:59:59 CLS Outpatient MEGAN AREVALO MD [facility] PREOP STRICTURE [id number] 05/26/2014 07:01:00 05/26/2014 09:50:00 DIS Outpatient MEGAN AREVALO MD [facility] SDC DYSPHASIA [id number] 05/25/2014 07:18:00 05/25/2014 23:59:59 CLS Outpatient MEGAN AREVALO MD [facility] PREOP DYSPAHSIA [id number] 05/12/2014 07:59:00 05/12/2014 10:35:00 DIS Outpatient MEGAN AREVALO MD [facility] SDC STRICTURE [id number] 05/11/2014 07:39:00 05/11/2014 23:59:59 CLS Outpatient MEGAN AREVALO MD [facility] PREOP STRICTURE [id number] 05/05/2014 06:56:00 05/05/2014 23:59:59 CLS Outpatient MEGAN AREVALO MD [facility] SDC STRICTURE [id number] 05/04/2014 07:54:00 05/04/2014 23:59:59 CLS Outpatient MEGAN AREVALO MD [facility] PREOP STRICTURE [id number] 04/28/2014 07:01:00 04/28/2014 23:59:59 CLS Outpatient MEGAN AREVALO MD [facility] STRICTURE [id number] 04/27/2014 07:24:00 04/27/2014 23:59:59 CLS Outpatient MEGAN AREVALO MD [facility] PREOP STRICTURE [id number] 04/21/2014 06:36:00 04/21/2014 08:55:00 DIS Outpatient MEGAN AREVALO MD [facility] DYSPHASA; ESOPHAGEAL STRICTURE [id number] 04/20/2014 07:27:00 04/20/2014 23:59:59 CLS Outpatient MEGAN AREVALO MD [facility] PREOP DYSPHASA; ESOPHAGEAL STRICTURE [id number] 04/14/2014 07:13:00 04/14/2014 10:50:00 DIS Outpatient MEGAN AREVALO MD [facility] DYSPHAGA; ESOPHAGEAL STRICTURE [id number] 04/07/2014 07:05:00 04/07/2014 09:25:00 DIS Outpatient MEGAN AREVALO MD [facility] DYSPHAGA; ESOPHAGEAL STRICTURE [id number] 03/31/2014 06:43:00 03/31/2014 09:20:00 DIS Outpatient MEGAN AREVALO MD [facility] STRICTURE [id number] 03/30/2014 07:22:00 03/30/2014 23:59:59 CLS Outpatient MEGAN AREVALO MD [facility] PREOP STRICTURE [id number] 03/17/2014 06:23:00 03/17/2014 23:59:59 CLS Outpatient MEGAN AREVALO MD [facility] PRE-PYLORIC ULCER [id number] 03/16/2014 07:46:00 03/16/2014 23:59:59 CLS Outpatient MEGAN AREVALO MD [facility] PREOP PRE-PYLORIC ULCER [id number] 02/24/2014 07:24:00 02/24/2014 09:20:00 DIS Outpatient MEGAN AREVALO MD [facility] PERIPYLORIC ANTRAL ULCER [id number] 02/23/2014 07:38:00 02/23/2014 23:59:59 CLS Outpatient MEGAN AREVALO MD [facility] PREOP PERIPYLORIC ANTRAL ULCER [id number] 01/13/2014 06:41:00 01/13/2014 10:20:00 DIS Outpatient MEGAN AREVALO MD [facility] GERD [id number] 01/12/2014 07:35:00 01/12/2014 23:59:59 CLS Outpatient MEGAN AREVALO MD [facility] PREOP GERD [id number] 12/17/2013 12:44:00 12/18/2013 11:57:00 DIS Outpatient MEGAN AREVALO MD [facility] ABDOMINAL PAIN NAUSEA VOMITING UTI [id number] 10/20/2013 17:09:00 10/20/2013 18:45:00 DIS Emergency PÉREZ HORVATH MD [facility] ER ABD PAIN [id number] 09/26/2013 14:57:00 09/26/2013 17:47:00 DIS Emergency PÉREZ HORVATH MD [facility] ER NAUSEA VOMITING [id number] 03/20/2013 12:48:00 03/20/2013 15:50:00 DIS Emergency RAN MERRITT APRN [facility] ER COUGH CONGESTION [id number] 10/06/2015 14:07:00 Document Registration [id number] 07/20/2014 13:33:00 Document Registration [id number] 02/19/2012 09:56:00 Document Registration [id number] 02/18/2012 10:41:00 Document Registration [id number] 02/07/2012 08:38:00 Document Registration [id number] 07/24/2011 03:13:00 Document Registration [id number] 11/08/2010 09:10:00 Document Registration [id number] 10/10/2010 10:20:00 Document Registration [id number] 09/05/2010 10:15:00 Document Registration [id number] 08/23/2010 08:34:00 Document Registration [id number] 08/15/2010 15:18:00 Document Registration [id number] 07/15/2018 08:40:00 ACT Outpatient SONNY PARRISH APRN [facility] [id number] 03/25/2018 08:40:00 Document Registration [id number] 09/14/2016 16:06:00 Document Registration
[2018-07-16] MEDS ORDERED: FAMOTIDINE 20MG/2ML IV (PEPCID) IVP ONE (15:15)
[2018-07-16] MEDS ORDERED: fentaNYL INJECTION 100 MCG/2 ML AMP IVP ONE (15:15)
[2018-07-16] MEDS ORDERED: ONDANSETRON 4 MG/2 ML (SDV) Z0FRAN IVP ONE (15:15)
[2018-07-16] MEDS ORDERED: NS IV 1000 ML 1,000 ML IV ONE (15:15)
[2018-07-16 15:25] LABS: BILIRUBIN,URINE NEGATIVE (NEGATIVE); CLARITY,URINE CLEAR; COLOR,URINE YELLOW; GLUCOSE, URINE (UA) NEGATIVE (NEGATIVE); KETONES,URINE 1+ (NEGATIVE); LEUKOCYTE ESTERASE ,URINE 1+ (NEGATIVE); NITRITE,URINE NEGATIVE (NEGATIVE); PH,URINE 6 (5-9); PROTEIN,URINE 2+ (NEGATIVE); UROBILINOGEN,URINE NORMAL (NORMAL)
[2018-07-16 15:26] LABS: BASOPHILS % (AUTO) 0 % (0-10); EOSINOPHILS # (AUTO) 0.1 10^3/uL (0.0-0.3); EOSINOPHILS % (AUTO) 1 % (0-10); HEMATOCRIT 45 % (35-52); HEMOGLOBIN 14.7 G/DL (11.5-16.0); LYMPHOCYTES # (AUTO) 1.6 X 10^3 (1.0-4.0); LYMPHOCYTES % (AUTO) 15 % (12-44); MEAN CORPUSCULAR HEMOGLOBIN 31 PG (25-34); MEAN CORPUSCULAR HGB CONC 33 G/DL (32-36); MEAN CORPUSCULAR VOLUME 94 FL (80-99); MEAN PLATELET VOLUME 9.8 FL (7.4-10.4); MONOCYTES # (AUTO) 0.7 X 10^3 (0.0-1.0); MONOCYTES % (AUTO) 6 % (0-12); NEUTROPHILS # (AUTO) 8.3 X 10^3 (1.8-7.8); NEUTROPHILS % (AUTO) 77 % (42-75); PLATELET COUNT 362 10^3/uL (130-400); RED BLOOD COUNT 4.75 10^6/uL (4.35-5.85); RED CELL DISTRIBUTION WIDTH 14.7 % (10.0-14.5); WHITE BLOOD COUNT 10.8 10^3/uL (4.3-11.0)
[2018-07-16 15:36] LABS: BACTERIA,URINE FEW /HPF; RBC,URINE 0-2 /HPF
[2018-07-16 15:44] LABS: ALANINE AMINOTRANSFERASE 11 U/L (0-55); ALBUMIN 4.1 GM/DL (3.2-4.5); ALKALINE PHOSPHATASE 88 U/L (40-136); BILIRUBIN,TOTAL 0.2 MG/DL (0.1-1.0); BUN/CREATININE RATIO 13; CALCIUM 9.5 MG/DL (8.5-10.1); CARBON DIOXIDE 27 MMOL/L (21-32); CHLORIDE 102 MMOL/L (98-107); CREATININE SERUM 0.84 MG/DL (0.60-1.30); GFR ESTIMATED > 60; GLUCOSE 87 MG/DL (70-105); LIPASE 51 U/L (8-78); POTASSIUM 5.1 MMOL/L (3.6-5.0); SODIUM 139 MMOL/L (135-145); TOTAL PROTEIN 7.5 GM/DL (6.4-8.2)
[2018-07-16] MEDS ORDERED: IOHEXOL 350 MG/ML 100 ML (OMNIPAQUE 350) VIAL IV ONE (16:45)
[2018-07-16] MEDS ORDERED: NS 100 ML (IVPB) BAG IV ONE (16:45)
[2018-07-16] MEDS ORDERED: RECEIVED CONTRAST (Hold Metformin) IV SCH (16:45)
--- NOTE | 2018-07-16 17:09 | Diagnostic Imaging Report ---
PROCEDURE: CT abdomen and pelvis with contrast. TECHNIQUE: Multiple contiguous axial images were obtained through the abdomen and pelvis after administration of intravenous contrast. INDICATION: Abdominal pain with nausea and vomiting for 3 to 4 weeks, worsening over the last week. History of hysterectomy, bowel obstruction and stomach ulceration with appendectomy. COMPARISON: 11/30/2017 FINDINGS: The lung bases are clear. The heart is normal in size. There is no pericardial effusion. No focal hepatic lesions are seen. The spleen appears normal. The adrenal glands are normal. The kidneys are normal. The pancreas is unremarkable. The common bile duct is dilated. There is no pancreatic duct dilatation. There are multiple mildly dilated loops of small bowel throughout the abdomen. No definite transition point is seen. There is moderate stool throughout the colon. No free fluid or free air is seen. The appendix is not seen. No acute osseous abnormality is seen. There are degenerative changes in the spine, particularly at L2-3 and L4-5. IMPRESSION: 1. Multiple mildly dilated loops of small bowel throughout the abdomen. No definite transition point is seen. This may be due to ileus, with low-grade partial small bowel obstruction thought less likely. 2. Moderate dense stool throughout the colon, please correlate with any history of constipation. 3. Dilated common bile duct. Please correlate with lab values. If there is suspicion for an obstructive process, consider MRCP or ERCP for further evaluation. Dictated by: Dictated on workstation # [id number]
[2018-07-16] MEDS ORDERED: LIDOCAINE 2% VISCOUS 15 ML UDC PO ONE (17:45)
[2018-07-16] MEDS ORDERED: ANTACID SUSP 30 ML UDC (MYLANTA) PO ONE (17:45)
[2018-07-16] MEDS ORDERED: ONDA4TAB11 SL (18:53)
[2018-07-16] MEDS ORDERED: SUCR1ORA5 PO (18:53)
--- NOTE | 2018-07-16 18:53 | ED Abdominal Pain ---
General Chief Complaint: Abdominal/GI Problems Stated Complaint: ABD PAIN Nursing Triage Note: COMPLAINS OF ABD PAIN WITH N/V STARTING YESTERDAY. Sepsis Screen: No Definite Risk Source of Information: Patient Exam Limitations: No Limitations History of Present Illness Date Seen by Provider: Jul 16, 2018 Time Seen by Provider: 15:07 Initial Comments This 52-year-old woman presents to the emergency room with complaints of nausea , vomiting, upper abdominal pain, and bloating. She is noted to be tachycardic as well. She is afebrile. She reports having problems with abdominal discomfort and vomiting about 15 or 20 minutes after eating for about a month. She reports extensive history of gastrointestinal problems. In fact, she has had a Billroth II procedure performed. She reports her gallbladder has been assessed numerous times and has always been normal. She feels a little constipated lately. She has been having bowel movements daily but states they are small and firm. She feels her abdomen is significantly distended today. She complains of frequent and foul smelling belching. She has been seen by Dr. Brown in the past and has a referral pending for EGD. She does have a history of bowel obstruction as well. Allergies and Home Medications Allergies Coded Allergies: morphine (Verified Allergy, Severe, ITCHING & FLUSHING, PT HAS RECEIVED HYDROCODONE IN THE PAST, 08/31/17) Influenza Virus Vaccines (Unverified Allergy, Unknown, 08/31/17) metronidazole (Verified Allergy, Unknown, 08/31/17) Sulfa (Sulfonamide Antibiotics) (Verified Adverse Reaction, Unknown, ) Home Medications Albuterol Sulfate 8.5 Gm Hfa.aer.ad, 1-2 PUFF IH Q4H PRN for cough/wheeze/SOA Prescribed by: SONNY KRISHNAN on 08/05/16 1529 Calcium Carbonate/Vitamin D3 1 Each Tablet, 1 TAB PO BID, (Reported) Dicyclomine HCl 20 Mg Tablet, 20 MG PO QID Prescribed by: SANGITA ZAMORA on 06/23/16 1057 Estrogen,Sylvie/Me-Testosterone 1 Each Tablet, 2 TAB PO DAILY, (Reported) LAST FILLED 03/20/16 #60 Famotidine 20 Mg Tablet, 20 MG PO BID Prescribed by: MARCELO KEEN on 08/31/172028 Ferrous Sulfate 325 Mg Tablet, 325 MG PO BID, (Reported) Gabapentin 300 Mg Capsule, 600 MG PO TID, (Reported) TAKES 2 (300 MG) CAPSULES Ondansetron 8 Mg Tab.rapdis, 8 MG PO Q6H PRN for NAUSEA/VOMITING-1ST LINE Prescribed by: MARCELO KEEN on 08/31/172028 Ondansetron 4 Mg Tab.rapdis, 4 MG PO Q6H PRN for NAUSEA/VOMITING Prescribed by: PRIMO GUNTER on 11/30/17336 Ondansetron 4 Mg Tab.rapdis, 4 MG SL Q4H PRN for NAUSEA/VOMITING Prescribed by: YONIS BRADLEY on 07/16/181852 Pantoprazole Sodium 40 Mg Tablet.dr, 40 MG PO BID, (Reported) Sucralfate 1 Gm/10 Ml Oral.susp, 1 GM PO QID 30 minutes before meals and at bedtime. Crush and slurry if tablet is substituted. Prescribed by: YONIS BRADLEY on 07/16/181852 Patient Home Medication List Home Medication List Reviewed: Yes Review of Systems Review of Systems Constitutional: no symptoms reported EENTM: No Symptoms Reported Respiratory: No Symptoms Reported Cardiovascular: No Symptoms Reported Gastrointestinal: See HPI Genitourinary: No Symptoms Reported Musculoskeletal: no symptoms reported Skin: no symptoms reported Psychiatric/Neurological: No Symptoms Reported Endocrine: No Symptoms Reported Past Hcbbbpr-Zknogt-Wxfups Hx Patient Social History Alcohol Use: Denies Use Recreational Drug Use: No Smoking Status: Current Someday Smoker Former Smoker, Quit: Apr 24, 2016 2nd Hand Smoke Exposure: No Recent Foreign Travel: No Contact w/Someone Who Travel: No Recent Infectious Disease Expo: No Recent Hopitalizations: No (GI BLEED) Physical Abuse: No Sexual Abuse: No Immunizations Up To Date Tetanus Booster (TDap): More than 5yrs Seasonal Allergies Seasonal Allergies: Yes Past Medical History Surgeries: Yes (partial gastrectomy) Abdominal (Billroth II), Appendectomy, Hysterectomy Respiratory: No Cardiac: No Neurological: Yes Headaches /Migraines : No 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: Yes 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, 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 Sexually Transmitted Disease: No HIV/AIDS: No Genitourinary: No Gastrointestinal: Yes Gastrointestinal Bleed, Obstructive Bowel, Ulcer Musculoskeletal: Yes Scoliosis Endocrine: Yes (hypoglycemia) HEENT: No Loss of Vision: Denies Hearing Impairment: Denies Cancer: No Psychosocial: No Integumentary: No Blood Disorders: Yes (anemia) Adverse Reaction/Blood Tranf: No Family Medical History Cancer of colon GRANDMOTHER Family history: Diabetes mellitus 19 FATHER Family history: Hypertension 19 MOTHER Stroke 19 MOTHER No Pertinent Family Hx Physical Exam Vital Signs Vital Signs - First Documented 07/16/18 14:36 Temp 99.9 Pulse 125 Resp 16 B/P (MAP) 137/87 (104) Pulse Ox 97 O2 Delivery Room Air Capillary Refill : Less Than 3 Seconds Height/Weight/BMI Height: 5'3.00" Weight: 145lbs. 0.0oz. 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 and can supply II-XII nml as tested, no motor/sensory deficits, alert, normal mood/affect, oriented x 3 Skin: normal color, warm/dry Progress/Results/Core Measures Results/Orders Lab Results Laboratory Tests Test 07/16/18 15:02 07/16/18 15:16 Range/Units White Blood Count 10.8 4.3-11.0 10^3/uL Red Blood Count 4.75 4.35-5.85 10^6/uL Hemoglobin 14.7 11.5-16.0 G/DL Hematocrit 45 35-52 % Mean Corpuscular Volume 94 80-99 FL Mean Corpuscular Hemoglobin 31 25-34 PG Mean Corpuscular Hemoglobin Concent 33 32-36 G/DL Red Cell Distribution Width 14.7 H 10.0-14.5 % Platelet Count 362 130-400 10^3/uL Mean Platelet Volume 9.8 7.4-10.4 FL Neutrophils (%) (Auto) 77 H 42-75 % Lymphocytes (%) (Auto) 15 12-44 % Monocytes (%) (Auto) 6 0-12 % Eosinophils (%) (Auto) 1 0-10 % Basophils (%) (Auto) 0 0-10 % Neutrophils # (Auto) 8.3 H 1.8-7.8 X 10^3 Lymphocytes # (Auto) 1.6 1.0-4.0 X 10^3 Monocytes # (Auto) 0.7 0.0-1.0 X 10^3 Eosinophils # (Auto) 0.1 0.0-0.3 10^3/uL Basophils # (Auto) 0.0 0.0-0.1 10^3/uL Urine Color YELLOW Urine Clarity CLEAR Urine pH 6 5-9 Urine Specific [place] 1.015 L 1.016-1.022 Urine Protein 2+ H NEGATIVE Urine Glucose (UA) NEGATIVE NEGATIVE Urine Ketones 1+ H NEGATIVE Urine Nitrite NEGATIVE NEGATIVE Urine Bilirubin NEGATIVE NEGATIVE Urine Urobilinogen NORMAL NORMAL MG/DL Urine Leukocyte Esterase 1+ H NEGATIVE Urine RBC (Auto) 1+ H NEGATIVE Urine RBC 0-2 /HPF Urine WBC 2-5 /HPF Urine Squamous Epithelial Cells 5-10 /HPF Urine Crystals NONE /LPF Urine Bacteria FEW H /HPF Urine Casts NONE /LPF Urine Mucus NEGATIVE /LPF Urine Culture Indicated NO Sodium Level 139 135-145 MMOL/L Potassium Level 5.1 H 3.6-5.0 MMOL/L Chloride Level 102 98-107 MMOL/L Carbon Dioxide Level 27 21-32 MMOL/L Anion Gap 10 5-14 MMOL/L Blood Urea Nitrogen 11 7-18 MG/DL Creatinine 0.84 0.60-1.30 MG/DL Estimat Glomerular Filtration Rate > 60 BUN/Creatinine Ratio 13 Glucose Level 87 70-105 MG/DL Calcium Level 9.5 8.5-10.1 MG/DL Corrected Calcium 9.4 8.5-10.1 MG/DL Total Bilirubin 0.2 0.1-1.0 MG/DL Aspartate Amino Transf (AST/SGOT) 25 5-34 U/L Alanine Aminotransferase (ALT/SGPT) 11 0-55 U/L Alkaline Phosphatase 88 40-136 U/L Total Protein 7.5 6.4-8.2 GM/DL Albumin 4.1 3.2-4.5 GM/DL Lipase 51 8-78 U/L My Orders Orders - YONIS GRAVES MD Ua Culture If Indicated (07/16/18 15:06) Cbc With Automated Diff (07/16/18 15:15) Comprehensive Metabolic Panel (07/16/18 15:15) Lipase (07/16/18 15:15) Saline Lock/Iv-Start (07/16/18 15:15) Ns Iv 1000 Ml (Sodium Chloride 0.9%) (07/16/18 15:15) Famotidine Injection (Pepcid Injection) (07/16/18 15:15) Ondansetron Injection (Zofran Injectio (07/16/18 15:15) Fentanyl Injection (Sublimaze Injection (07/16/18 15:15) Ct Abdomen/Pelvis W (07/16/18 16:14) Iohexol Injection (Omnipaque 350 Mg/Ml 1 (07/16/18 16:45) Contrast Received (Contrast Received) (07/16/18 16:45) Ns (Ivpb) (Sodium Chloride 0.9% Ivpb Bag (07/16/18 16:45) Lidocaine 2% Viscous 15 Ml (Xylocaine Vi (07/16/18 17:45) Antacid Suspension (Mylanta Suspension (07/16/18 17:45) Medications Given in ED Current Medications Medications Dose Ordered Sig/Flora Route Start Time Stop Time Status Last Admin Dose Admin Al Hydrox/Mg Hydrox/Simethicone 30 ml ONCE ONCE PO 07/16/18 17:45 07/16/18 17:46 DC 07/16/18 17:41 30 ML Famotidine 20 mg ONCE ONCE IVP 07/16/18 15:15 07/16/18 15:17 DC 07/16/18 15:30 20 MG Fentanyl Citrate 50 mcg ONCE ONCE IVP 07/16/18 15:15 07/16/18 15:17 DC 07/16/18 15:30 50 MCG Lidocaine HCl 15 ml ONCE ONCE PO 07/16/18 17:45 07/16/18 17:46 DC 07/16/18 17:41 15 ML Ondansetron HCl 8 mg ONCE ONCE IVP 07/16/18 15:15 07/16/18 15:17 DC 07/16/18 15:30 8 MG Sodium Chloride 1,000 ml @ 0 mls/hr Q0M ONCE IV 07/16/18 15:15 07/16/18 15:17 DC 07/16/18 15:29 1,000 MLS/HR Vital Signs/I&O 07/16/18 07/16/18 14:36 19:02 Temp 99.9 99.9 Pulse 125 85 Resp 16 16 B/P (MAP) 137/87 (104) 150/85 (106) Pulse Ox 97 98 O2 Delivery Room Air Blood Pressure Mean: 104 Progress Progress Note : Progress Note Patient was initially treated with Pepcid, Zofran, fentanyl, and IV fluids while her workup was underway. CT scan was obtained. See report for details. GI cocktail was attempted for further treatment of her pain. Initially, GI cocktail significantly improved her upper abdominal pain. However, pain quickly rebounded Heart rate improved with IV fluids. Case was discussed with Dr. Brown who would like to try to manage her condition on an outpatient basis. Patient was agreeable to this. She reports having pain medication at home. Carafate and Zofran were prescribed. See discharge instructions for further discussion. CT report and plan were reviewed with Dr. Brown. Facesheet and note were faxed to his office. Diagnostic Imaging Diagonstic Imaging: CT Plain Films/CT/US/NM/MRI: abdomen, pelvis Comments CT abdomen and pelvis viewed by me and report reviewed. See report below: NAME: DIRK PEREZ [facility] REC#: [id number] PT STATUS: REG ER : 1965 PHYSICIAN: YONIS GRAVES MD ADMIT DATE: 07/16/18/ER Signed Date of Exam: 07/16/18 CT ABDOMEN/PELVIS W PROCEDURE: CT abdomen and pelvis with contrast. TECHNIQUE: Multiple contiguous axial images were obtained through the abdomen and pelvis after administration of intravenous contrast. INDICATION: Abdominal pain with nausea and vomiting for 3 to 4 weeks, worsening over the last week. History of hysterectomy, bowel obstruction and stomach ulceration with appendectomy. COMPARISON: 11/30/2017 FINDINGS: The lung bases are clear. The heart is normal in size. There is no pericardial effusion. No focal hepatic lesions are seen. The spleen appears normal. The adrenal glands are normal. The kidneys are normal. The pancreas is unremarkable. The common bile duct is dilated. There is no pancreatic duct dilatation. There are multiple mildly dilated loops of small bowel throughout the abdomen. No definite transition point is seen. There is moderate stool throughout the colon. No free fluid or free air is seen. The appendix is not seen. No acute osseous abnormality is seen. There are degenerative changes in the spine, particularly at L2-3 and L4-5. IMPRESSION: 1. Multiple mildly dilated loops of small bowel throughout the abdomen. No definite transition point is seen. This may be due to ileus, with low-grade partial small bowel obstruction thought less likely. 2. Moderate dense stool throughout the colon, please correlate with any history of constipation. 3. Dilated common bile duct. Please correlate with lab values. If there is suspicion for an obstructive process, consider MRCP or ERCP for further evaluation. Dictated by: Dictated on workstation # [id number] Dict: 07/16/181658 Trans: 07/16/181808 Interpreted by: AALIYAH DIAZ MD Electronically signed by: AALIYAH DIAZ MD 07/16/181808 Departure Impression Primary Impression: Upper abdominal pain Additional Impressions: Constipation Qualified Codes: K59.00 - Constipation, unspecified Ileus Disposition: HOME, SELF-CARE Condition: Improved Departure-Patient Inst. Decision time for Depature: 18:40 Referrals: RITU VANCE DO (PCP/Family) Primary Care Physician Patient Instructions: Acute Abdomen (Belly Pain), Adult (DC), Constipation, Adult (DC) Add. Discharge Instructions: Consume strictly a clear liquid diet for the next 24 hours. Take MiraLAX 2 or 3 doses daily until some good bowel movements are produced and you have some relief of abdominal distention. If you do not hear [facility], please call his office. You may use your pain medication as prescribed, but please try to limit hydrocodone as much as possible as it may worsen constipation. Drink plenty of clear liquids. Continue taking Protonix as prescribed. Add Carafate as prescribed. Take Zofran (ondansetron) as prescribed for nausea and vomiting. Return to the emergency room if symptoms worsen. All discharge instructions reviewed with patient and/or family. Voiced understanding. Scripts Ondansetron (Ondansetron Odt) 4 Mg Tab.rapdis 4 MG SL Q4H PRN for NAUSEA/VOMITING, #10 TAB 1 Refill Prov: YONIS GRAVES MD 07/16/18 Sucralfate (Carafate) 1 Gm/10 Ml Oral.susp 1 GM PO QID, #1200 ML 30 minutes before meals and at bedtime. Crush and slurry if tablet is substituted. Prov: YONIS GRAVES MD 07/16/18 Work/School Note: Work Release Form Date Seen in the Emergency Department: Jul 16, 2018 Return to Work: Jul 21, 2018 Copy Copies To 1: KANE BROWN MD Copies To 2: MARIANNA MYERS MD, JOSHUA T MD Jul 16, 2018 18:52
[2018-07-16 19:02] VITALS: BP 150/85
== END 2018-07-16 19:01 | disposition home or self-care (01) ==
LOC: EDUNIT# 14:31 → ER 14:32
DX: K59.00 Constipation, unspecified (principal); K56.7 Ileus, unspecified; G43.909 Migraine, unspecified, not intractable, without status migrainosus; D64.9 Anemia, unspecified; Z87.448 Personal history of other diseases of urinary system; Z88.5 Allergy status to narcotic agent; Z80.0 Family history of malignant neoplasm of digestive organs; Z88.2 Allergy status to sulfonamides; Z88.8 Allergy status to other drugs, medicaments and biological substances; Z79.51 Long term (current) use of inhaled steroids; Z88.7 Allergy status to serum and vaccine; Z87.19 Personal history of other diseases of the digestive system; Z87.891 Personal history of nicotine dependence; Z90.49 Acquired absence of other specified parts of digestive tract; Z90.710 Acquired absence of both cervix and uterus
CPT/HCPCS: 36415; 74177; 80053; 81000; 83690; 85025; 96361; 96374; 96375

== ENCOUNTER 2018-07-22 05:40 | Outpatient (CLI) | payer BC ==
[~2018-07-22] VITALS: Ht 152.4 cm; Wt 51.7 kg
[~2018-07-22 05:40] MED LIST changes: +ONDA4TAB11 SL; +SUCR1ORA5 PO
[2018-07-22] MEDS ORDERED: CYAN250010 PO (16:14)
[2018-07-22] MEDS ORDERED: DICY20TA10 PO (16:14)
== END 2018-07-22 16:16 | disposition home or self-care (01) ==
LOC: PREOP 05:40
PROVIDERS: ATTEND Surgery
DX: Z01.818 Encounter for other preprocedural examination (principal)

== ENCOUNTER 2018-07-27 10:53 | Day surgery (SDC) | payer BC ==
[~2018-07-27] VITALS: Ht 152.4 cm; Wt 51.7 kg
[~2018-07-27 10:53] MED LIST changes: +CYAN250010 PO; +DICY20TA10 PO
[2018-07-27 11:00] VITALS: BP 107/67
--- NOTE | 2018-07-27 11:06 | History & Physicial ---
History of Present Illness History of Present Illness Reason for visit/HPI to undergo an upper endoscopy regarding nausea/vomiting and concomitant colonoscopy to investigate a change in her bowel habits Date of Admission 07/27/18 Date Seen by a Provider: Jul 27, 2018 Time Seen by a Provider: 11:04 I consulted on this patient on 07/27/18 11:04 Attending Physician Kane Brown MD Admitting Physician [place] Consult Allergies and Home Medications Allergies Coded Allergies: morphine (Verified Allergy, Severe, ITCHING & FLUSHING, PT HAS RECEIVED HYDROCODONE IN THE PAST, 08/31/17) Influenza Virus Vaccines (Unverified Allergy, Unknown, 08/31/17) metronidazole (Verified Allergy, Unknown, 08/31/17) Sulfa (Sulfonamide Antibiotics) (Verified Adverse Reaction, Unknown, ) Home Medications Calcium Carbonate/Vitamin D3 1 Each Tablet, 1 TAB PO BID, (Reported) Cyanocobalamin (Vitamin B-12) 2,500 Mcg Tablet, 2,500 MCG PO DAILY, (Reported) Dicyclomine HCl 20 Mg Tablet, 20 MG PO QID PRN for HEARTBURN, (Reported) Estrogen,Sylvie/Me-Testosterone 1 Each Tablet, 2 TAB PO DAILY, (Reported) Gabapentin 300 Mg Capsule, 600 MG PO TID, (Reported) TAKES 2 (300 MG) CAPSULES Pantoprazole Sodium 40 Mg Tablet.dr, 40 MG PO BID, (Reported) Sucralfate 1 Gm/10 Ml Oral.susp, 1 GM PO QID 30 minutes before meals and at bedtime. Crush and slurry if tablet is substituted. Prescribed by: YONIS BRADLEY on 07/16/18 2145 Patient Home Medication List Home Medication List Reviewed: Yes Past Lknrgny-Yzqbty-Pipomt Hx Patient Social History Former Smoker, Quit: Apr 24, 2016 2nd Hand Smoke Exposure: No Recent Foreign Travel: No Contact w/other who traveled: No Recent Hopitalizations: No Immunizations Up To Date Tetanus Booster (TDap): More than 5yrs Seasonal Allergies Seasonal Allergies: Yes Surgeries Yes (partial gastrectomy) Abdominal, Appendectomy, Hysterectomy Respiratory No Cardiovascular No Neurological Yes Headaches /Migraines Reproductive System Hx 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: Yes Sexually Transmitted Disease: No HIV/AIDS: No 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, 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 Genitourinary No Gastrointestinal Yes Gastrointestinal Bleed, Obstructive Bowel, Ulcer Musculoskeletal Yes Scoliosis Endocrine History of Endocrine Disorders: Yes (hypoglycemia) HEENT History of HEENT Disorders: No Loss of Vision: Denies Hearing Impairment: Denies Cancer No Psychosocial History of Psychiatric Problem: No Integumentary History of Skin or Integumenta: No Blood Transfusions History of Blood Disorders: Yes (anemia) Adverse Reaction to a Blood Tr: No Family Medical History Significant Family History: No Pertinent Family Hx Family Hx: Cancer of colon GRANDMOTHER Family history: Diabetes mellitus 19 FATHER Family history: Hypertension 19 MOTHER Stroke 19 MOTHER Review of Systems Constitutional: see HPI EENTM: no symptoms reported Respiratory: no symptoms reported Cardiovascular: no symptoms reported Gastrointestinal: see HPI Genitourinary: no symptoms reported Musculoskeletal: no symptoms reported Skin: no symptoms reported Psychiatric/Neurological: Anxiety Physical Exam Vital Signs Capillary Refill : Height, Weight, BMI Height: 5'0.00" Weight: 114lbs. 0.0oz. 51.511283us; 22.3 BMI Method:Estimated General Appearance: No Apparent Distress Neck: Normal Inspection Respiratory: Lungs Clear Cardiovascular: Regular Rate, Rhythm Gastrointestinal: Non Tender, Soft Rectal: Deferred Neurologic/Psychiatric: Alert, Oriented x3 Skin: Warm/Dry Assessment/Plan Assessment and Plan lady with nausea, vomiting and change in bowel habits. For upper endoscopy with concomitant colonoscopy Admission Diagnosis Admission Status: Other (Outpt Proc) KANE BROWN MD Jul 27, 2018 11:06
--- NOTE | 2018-07-27 11:06 | Conscious Sedation/ASA ---
Conscious Sedation Pre-Proced Time 11:06 ASA Score 2 For ASA 3 and 4: Consider anesthesia and medical clearance. Also, for patients with a history of failed moderate sedation consider anesthesia. Airway Lungs Heart ASA score ASA 1: a normal healthy patient ASA 2: a patient with a mild systemic disease (mid diabetes, controlled hypertension, obesity ASA 3: a patient with a severe systemic disease that limits activity (angina , COPD, prior Myocardial infarction) ASA 4: a patient with an incapacitating disease that is a constant threat to life (CHF, renal failure) ASA 5: a moribund patient not expected to survive 24 hrs. (ruptured aneurysm) ASA 6: a declared brain patient whose organs are being harvested. For emergent operations, add the letter E after the classification Mallampati Classification Grade 1 Sedation Plan Discussed options with patient/fam The patient is an appropriate candidate to undergo the planned procedure, sedation, and anesthesia. The patient immediately re-assessed prior to indication. KANE BROWN MD Jul 27, 2018 11:06
[2018-07-27] MEDS ORDERED: NS IV 500 ML 500 ML IV PRN (11:16)
[2018-07-27] MEDS ORDERED: fentaNYL INJECTION 100 MCG/2 ML AMP IVP ONE (11:30)
[2018-07-27] MEDS ORDERED: MIDAZOLAM 2 MG/2 ML (VERSED) VIAL IVP ONE (11:30)
[2018-07-27] MEDS ORDERED: HURRICAINE EXT TUBE (BENZOCAINE) XX ONE (11:30)
[2018-07-27] MEDS ORDERED: NS IV 500 ML 500 ML ONE (11:43)
[2018-07-27] MEDS ORDERED: MIDAZOLAM 2 MG/2 ML (VERSED) VIAL ONE ×5 (12:07)
[2018-07-27] MEDS ORDERED: fentaNYL INJECTION 100 MCG/2 ML AMP ONE ×2 (12:08)
[2018-07-27] MEDS ORDERED: HURRICAINE EXT TUBE (BENZOCAINE) ONE (12:09)
[2018-07-27 12:35] VITALS: BP 118/64
--- NOTE | 2018-07-27 12:57 | Endo Procedure Record ---
Endo Procedure Report Date of Procedure Last Colonoscopy: Yes Jul 27, 2018 Surgeon (s) KANE BROWN MD Post Procedure/Op Diagnosis EGD: Changes consistent with Billroth II reconstruction. 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 She came in for an upper endoscopy with colonoscopy to investigate epigastric discomfort with nausea and vomiting along with a change in her bowel habits. In addition, she reported a family history of colon cancer as well. Informed consent was obtained after reviewing the procedures in detail. Description of the procedures: Upper endoscopy: She was placed in left lateral decub disposition and her vital signs were monitored. Conscious sedation was achieved using Versed and fentanyl. The flexible gastroscope was introduced down the esophagus into the gastric remnant and advanced past the jejunal limb. There was no mucosal abnormality. The anastomosis itself was wide open without any stricture. There was no ulceration either. The gastroscope was then removed. Impression: Previous Billroth II reconstruction of the stomach for complications from peptic ulcer. Her symptoms are likely due to postgastrectomy changes. Colonoscopy: Digital rectal examination was unremarkable. The colonoscope was then introduced into the rectum and advanced to the cecum. The scope was then withdrawn slowly and the mucosa examined in a systematic fashion. There was no abnormality She tolerated the procedures well and was taken back to the nursing area in a stable condition. Impression: Change in bowel habits. Positive family history of colon cancer. Normal colonoscopy. Recommend screening and 5 years. 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
--- NOTE | 2018-07-27 12:59 | Discharge Inst-Simple/Standard ---
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 To try small frequent meals in the meantime Activity as Tolerated: Yes Discharge Diet: No Restrictions, Eat Small Frequent Meals KANE BROWN MD Jul 27, 2018 12:59
[2018-07-27 13:35] VITALS: BP 118/64
[2018-07-27 14:00] VITALS: BP 108/74
[2018-07-27 14:10] VITALS: BP 108/74
== END 2018-07-27 14:10 | disposition home or self-care (01) ==
LOC: ENDO 10:53
PROVIDERS: ATTEND Surgery
DX: R10.13 Epigastric pain (principal); R19.4 Change in bowel habit; R11.2 Nausea with vomiting, unspecified; F41.9 Anxiety disorder, unspecified; Z80.0 Family history of malignant neoplasm of digestive organs; Z87.11 Personal history of peptic ulcer disease; Z88.5 Allergy status to narcotic agent; Z88.2 Allergy status to sulfonamides; Z79.899 Other long term (current) drug therapy; Z87.891 Personal history of nicotine dependence; Z86.2 Personal history of diseases of the blood and blood-forming organs and certain disorders involving the immune mechanism; Z98.890 Other specified postprocedural states

== ENCOUNTER 2018-08-14 10:19 | Emergency (ER) | payer BC ==
[~2018-08-14] VITALS: Ht 152.4 cm; Wt 51.7 kg
[2018-08-14] MEDS ORDERED: NS IV 1000 ML 1,000 ML IV ONE (11:07)
[2018-08-14] MEDS ORDERED: ONDANSETRON 4 MG/2 ML (SDV) Z0FRAN IVP ONE (11:15)
[2018-08-14] MEDS ORDERED: fentaNYL INJECTION 100 MCG/2 ML AMP IVP ONE (11:15)
[2018-08-14 11:16] LABS: BASOPHILS % (AUTO) 0 % (0-10); EOSINOPHILS # (AUTO) 0.2 10^3/uL (0.0-0.3); EOSINOPHILS % (AUTO) 2 % (0-10); HEMATOCRIT 43 % (35-52); HEMOGLOBIN 13.6 G/DL (11.5-16.0); LYMPHOCYTES # (AUTO) 1.6 X 10^3 (1.0-4.0); LYMPHOCYTES % (AUTO) 18 % (12-44); MEAN CORPUSCULAR HEMOGLOBIN 30 PG (25-34); MEAN CORPUSCULAR HGB CONC 32 G/DL (32-36); MEAN CORPUSCULAR VOLUME 95 FL (80-99); MEAN PLATELET VOLUME 9.6 FL (7.4-10.4); MONOCYTES # (AUTO) 0.4 X 10^3 (0.0-1.0); MONOCYTES % (AUTO) 5 % (0-12); NEUTROPHILS # (AUTO) 6.4 X 10^3 (1.8-7.8); NEUTROPHILS % (AUTO) 75 % (42-75); PLATELET COUNT 313 10^3/uL (130-400); RED CELL DISTRIBUTION WIDTH 14.7 % (10.0-14.5); WHITE BLOOD COUNT 8.6 10^3/uL (4.3-11.0)
--- NOTE | 2018-08-14 11:21 | ED Abdominal Pain ---
General Chief Complaint: Abdominal/GI Problems Stated Complaint: ABD PAIN;N/V Nursing Triage Note: HX OF GI ISSUES. STATES SHE'S BEEN VOMITTING THIS MORNING, UNABLE TO KEEP THINGS DOWN. HAS SEEN DR. BROWN AND RECOMMENDED TO SEE INFORMATION STRATEGIST. IS WAITNG ON APPT. Sepsis Screen: No Definite Risk Source of Information: Patient Exam Limitations: No Limitations History of Present Illness Date Seen by Provider: Aug 14, 2018 Time Seen by Provider: 11:00 Initial Comments 52-year-old female who presents to the emergency room with complaints of severe nausea and vomiting that started this morning and epigastric pain. She's had numerous gastrointestinal surgeries for ulcers ruptured and last year she reports having an ileus obstruction. She has seen Dr. Brown on outpatient basis and he recommends her to see a bacteriologist food but is waiting for an appointment. Timing/Duration: 4-6 Hours Severity/Quality: Cramping Location: Epigastric Radiation: No Radiation Associated Symptoms: Nausea/Vomiting Allergies and Home Medications Allergies Coded Allergies: morphine (Verified Allergy, Severe, ITCHING & FLUSHING, PT HAS RECEIVED HYDROCODONE IN THE PAST, 08/31/17) Influenza Virus Vaccines (Unverified Allergy, Unknown, 08/31/17) metronidazole (Verified Allergy, Unknown, 08/31/17) Sulfa (Sulfonamide Antibiotics) (Verified Adverse Reaction, Unknown, ) Home Medications Calcium Carbonate/Vitamin D3 1 Each Tablet, 1 TAB PO BID, (Reported) Cyanocobalamin (Vitamin B-12) 2,500 Mcg Tablet, 2,500 MCG PO DAILY, (Reported) Dicyclomine HCl 20 Mg Tablet, 20 MG PO QID PRN for HEARTBURN, (Reported) Estrogen,Sylvie/Me-Testosterone 1 Each Tablet, 2 TAB PO DAILY, (Reported) Gabapentin 300 Mg Capsule, 600 MG PO TID, (Reported) TAKES 2 (300 MG) CAPSULES Pantoprazole Sodium 40 Mg Tablet.dr, 40 MG PO BID, (Reported) Sucralfate 1 Gm/10 Ml Oral.susp, 1 GM PO QID 30 minutes before meals and at bedtime. Crush and slurry if tablet is substituted. Prescribed by: YONIS BRADLEY on 07/16/18 0886 Past [id number] Hx Patient Social History Former Smoker, Quit: Apr 24, 2016 2nd Hand Smoke Exposure: No Recent Foreign Travel: No Contact w/Someone Who Travel: No Recent Infectious Disease Expo: No Recent Hopitalizations: No Immunizations Up To Date Tetanus Booster (TDap): More than 5yrs Seasonal Allergies Seasonal Allergies: Yes Past Medical History Surgeries: Yes (partial gastrectomy) Abdominal, Appendectomy, Hysterectomy Respiratory: No Cardiac: No Neurological: Yes Headaches /Migraines 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: Yes 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, 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 Sexually Transmitted Disease: No HIV/AIDS: No Genitourinary: No Gastrointestinal: Yes Gastrointestinal Bleed, Obstructive Bowel, Ulcer Musculoskeletal: Yes Scoliosis Endocrine: Yes (hypoglycemia) HEENT: No Loss of Vision: Denies Hearing Impairment: Denies Cancer: No Psychosocial: No Integumentary: No Blood Disorders: Yes (anemia) Adverse Reaction/Blood Tranf: No Family Medical History Cancer of colon GRANDMOTHER Family history: Diabetes mellitus 19 FATHER Family history: Hypertension 19 MOTHER Stroke 19 MOTHER No Pertinent Family Hx Physical Exam Vital Signs Vital Signs - First Documented 08/14/18 10:54 Temp 97.7 Pulse 92 Resp 18 B/P (MAP) 135/78 (97) Pulse Ox 98 O2 Delivery Room Air Capillary Refill : Less Than 3 Seconds Height/Weight/BMI Height: 5'0.00" Weight: 114lbs. 0.0oz. 51.725857vx; 22.3 BMI Method:Estimated Progress/Results/Core Measures Results/Orders Lab Results Laboratory Tests Test 08/14/18 11:10 08/14/18 12:30 Range/Units White Blood Count 8.6 4.3-11.0 10^3/uL Red Blood Count 4.56 4.35-5.85 10^6/uL Hemoglobin 13.6 11.5-16.0 G/DL Hematocrit 43 35-52 % Mean Corpuscular Volume 95 80-99 FL Mean Corpuscular Hemoglobin 30 25-34 PG Mean Corpuscular Hemoglobin Concent 32 32-36 G/DL Red Cell Distribution Width 14.7 H 10.0-14.5 % Platelet Count 313 130-400 10^3/uL Mean Platelet Volume 9.6 7.4-10.4 FL Neutrophils (%) (Auto) 75 42-75 % Lymphocytes (%) (Auto) 18 12-44 % Monocytes (%) (Auto) 5 0-12 % Eosinophils (%) (Auto) 2 0-10 % Basophils (%) (Auto) 0 0-10 % Neutrophils # (Auto) 6.4 1.8-7.8 X 10^3 Lymphocytes # (Auto) 1.6 1.0-4.0 X 10^3 Monocytes # (Auto) 0.4 0.0-1.0 X 10^3 Eosinophils # (Auto) 0.2 0.0-0.3 10^3/uL Basophils # (Auto) 0.0 0.0-0.1 10^3/uL Sodium Level 142 135-145 MMOL/L Potassium Level 3.7 3.6-5.0 MMOL/L Chloride Level 105 98-107 MMOL/L Carbon Dioxide Level 26 21-32 MMOL/L Anion Gap 11 5-14 MMOL/L Blood Urea Nitrogen 9 7-18 MG/DL Creatinine 0.73 0.60-1.30 MG/DL Estimat Glomerular Filtration Rate > 60 BUN/Creatinine Ratio 12 Glucose Level 84 70-105 MG/DL Calcium Level 9.2 8.5-10.1 MG/DL Corrected Calcium 9.3 8.5-10.1 MG/DL Total Bilirubin 0.1 0.1-1.0 MG/DL Aspartate Amino Transf (AST/SGOT) 23 5-34 U/L Alanine Aminotransferase (ALT/SGPT) 15 0-55 U/L Alkaline Phosphatase 100 40-136 U/L Total Protein 7.6 6.4-8.2 GM/DL Albumin 3.9 3.2-4.5 GM/DL Amylase Level 111 25-125 U/L Lipase 56 8-78 U/L Urine Color YELLOW Urine Clarity CLEAR Urine pH 5 5-9 Urine Specific [place] 1.015 L 1.016-1.022 Urine Protein 2+ H NEGATIVE Urine Glucose (UA) NEGATIVE NEGATIVE Urine Ketones NEGATIVE NEGATIVE Urine Nitrite NEGATIVE NEGATIVE Urine Bilirubin NEGATIVE NEGATIVE Urine Urobilinogen NORMAL NORMAL MG/DL Urine Leukocyte Esterase 1+ H NEGATIVE Urine RBC (Auto) 1+ H NEGATIVE Urine RBC RARE /HPF Urine WBC RARE /HPF Urine Squamous Epithelial Cells 5-10 /HPF Urine Crystals NONE /LPF Urine Bacteria NEGATIVE /HPF Urine Casts NONE /LPF Urine Mucus NEGATIVE /LPF Urine Culture Indicated NO My Orders Orders - SASHA PEREZ Comprehensive Metabolic Panel (08/14/18 11:07) Lipase (08/14/18 11:07) Amylase (08/14/18 11:07) Ua Culture If Indicated (08/14/18 11:07) Saline Lock/Iv-Start (08/14/18 11:07) Cbc With Automated Diff (08/14/18 11:07) Ct Abdomen/Pelvis W (08/14/18 11:07) Saline Lock/Iv-Start (08/14/18 11:07) Ns Iv 1000 Ml (Sodium Chloride 0.9%) (08/14/18 11:07) Ondansetron Injection (Zofran Injectio (08/14/18 11:15) Fentanyl Injection (Sublimaze Injection (08/14/18 11:15) Iohexol Injection (Omnipaque 350 Mg/Ml 1 (08/14/18 11:30) Contrast Received (Contrast Received) (08/14/18 11:30) Ns (Ivpb) (Sodium Chloride 0.9% Ivpb Bag (08/14/18 11:30) Medications Given in ED Current Medications Medications Dose Ordered Sig/Flora Route Start Time Stop Time Status Last Admin Dose Admin Fentanyl Citrate 50 mcg ONCE ONCE IVP 08/14/18 11:15 08/14/18 11:16 DC 08/14/18 11:21 50 MCG Iohexol 100 ml ONCE ONCE IV 08/14/18 11:30 08/14/18 11:40 DC 08/14/18 11:53 100 ML Ondansetron HCl 4 mg ONCE ONCE IVP 08/14/18 11:15 08/14/18 11:16 DC 08/14/18 11:21 4 MG Sodium Chloride 100 ml ONCE ONCE IV 08/14/18 11:30 08/14/18 11:40 DC 08/14/18 11:53 80 ML Sodium Chloride 1,000 ml @ 0 mls/hr Q0M ONCE IV 08/14/18 11:07 08/14/18 11:09 DC 08/14/18 11:20 0 MLS/HR Vital Signs/I&O 08/14/18 10:54 Temp 97.7 Pulse 92 Resp 18 B/P (MAP) 135/78 (97) Pulse Ox 98 O2 Delivery Room Air Blood Pressure Mean: 97 Departure Impression Primary Impression: Nausea and vomiting Additional Impression: Constipation Disposition: 01 HOME, SELF-CARE Condition: Stable/Unchanged Departure-Patient Inst. Decision time for Depature: 13:03 Referrals: [facility] (PCP/Family) Primary Care Physician Patient Instructions: Constipation in Adults, Viral Gastroenteritis, Adult (DC) Add. Discharge Instructions: Follow-up with Dr. Brown and your bacteriologist food as scheduled. Take the medication as directed. Start with a bland diet and advance as tolerated. You may use your MiraLAX 1 capful twice a day until constipation resolves. Return back to the emergency room for worsening symptoms or concerns as needed. All discharge instructions reviewed with patient and/or family. Voiced understanding. Scripts Ondansetron HCl (Zofran) 4 Mg Tab 4 MG PO Q4H PRN for NAUSEA/VOMITING-1ST LINE, #14 TAB Prov: SASHA PEREZ 08/14/18 SASHA PEREZ Aug 14, 2018 11:21
[2018-08-14] MEDS ORDERED: IOHEXOL 350 MG/ML 100 ML (OMNIPAQUE 350) VIAL IV ONE (11:30)
[2018-08-14] MEDS ORDERED: RECEIVED CONTRAST (Hold Metformin) IV SCH (11:30)
[2018-08-14] MEDS ORDERED: NS 100 ML (IVPB) BAG IV ONE (11:30)
[2018-08-14 11:35] LABS: ALANINE AMINOTRANSFERASE 15 U/L (0-55); ALBUMIN 3.9 GM/DL (3.2-4.5); ALKALINE PHOSPHATASE 100 U/L (40-136); AMYLASE 111 U/L (25-125); BILIRUBIN,TOTAL 0.1 MG/DL (0.1-1.0); BUN/CREATININE RATIO 12; CALCIUM 9.2 MG/DL (8.5-10.1); CARBON DIOXIDE 26 MMOL/L (21-32); CHLORIDE 105 MMOL/L (98-107); CREATININE SERUM 0.73 MG/DL (0.60-1.30); GFR ESTIMATED > 60; GLUCOSE 84 MG/DL (70-105); LIPASE 56 U/L (8-78); POTASSIUM 3.7 MMOL/L (3.6-5.0); SODIUM 142 MMOL/L (135-145); TOTAL PROTEIN 7.6 GM/DL (6.4-8.2)
--- NOTE | 2018-08-14 12:22 | Diagnostic Imaging Report ---
PROCEDURE: CT abdomen and pelvis with contrast. TECHNIQUE: Multiple contiguous axial images were obtained through the abdomen and pelvis after administration of intravenous contrast. INDICATION: Abdominal pain and vomiting for two days. Bloating. History of appendectomy, hysterectomy. COMPARISON: 07/16/2018. FINDINGS: The lung bases are clear. The heart is normal in size. There is no pericardial effusion. The liver demonstrates no focal lesions. The spleen appears normal. The adrenal glands are normal. The kidneys appear normal. The pancreas is unremarkable. The common bile duct is mildly prominent, similar to prior examinations. The gallbladder does not appear dilated. No calcified stones are seen. Moderate stool is seen throughout the colon. Postsurgical changes are noted at the stomach. No significant free fluid or free air is seen. There is diastasis of the abdominal musculature. There are small fat-containing periumbilical hernias noted without bowel involvement. There are fluid-filled loops of small bowel without transition point to suggest obstruction. No acute osseous abnormality is seen. There are degenerative changes in the lumbar spine, most notably at L2-L3 and L4-L5. IMPRESSION: 1. Fluid-filled loops of small bowel without obstruction seen. 2. Moderate stool in the colon, may be due to constipation. 3. Stable prominence of the common bile duct without calcified stone seen. Dictated by: Dictated on workstation # [id number]
[2018-08-14 12:38] LABS: BILIRUBIN,URINE NEGATIVE (NEGATIVE); CLARITY,URINE CLEAR; COLOR,URINE YELLOW; GLUCOSE, URINE (UA) NEGATIVE (NEGATIVE); KETONES,URINE NEGATIVE (NEGATIVE); LEUKOCYTE ESTERASE ,URINE 1+ (NEGATIVE); NITRITE,URINE NEGATIVE (NEGATIVE); PH,URINE 5 (5-9); PROTEIN,URINE 2+ (NEGATIVE); UROBILINOGEN,URINE NORMAL (NORMAL)
[2018-08-14 12:52] LABS: RBC,URINE RARE /HPF; WBC,URINE RARE /HPF
[2018-08-14 12:53] LABS: BACTERIA,URINE NEGATIVE /HPF
--- OUTSIDE RECORDS SUMMARY | 2018-08-14 12:54 | XMS REPORT | Clinical Summary ---
Author Author [facility] Organization [facility] Address Unknown Phone Unavailable Care Team Providers Care Oyster Picker Name Role Phone Enmanuel Nicolas DO PCP Source Comments Some departments are not documenting in the electronic medical record. If you do not see the information that you expected, contact Release of Information in the Health Information Management department at [phone] for further assistance in locating additional records.[facility] Allergies Not on File Medications Not on [...]
[2018-08-14] MEDS ORDERED: ONDN4T PO (13:04)
--- OUTSIDE RECORDS SUMMARY | 2018-08-14 13:05 | XMS REPORT | Continuity of Care Document ---
Author Author [facility] Address Unknown Phone Unavailable Allergies Active Description Code Type Severity Reaction Onset Reported/Identified Relationship to Patient Clinical Status Yes FLAGYL MILD OTHER Yes SULFAMETHOXAZOLE-TRIMETHOPRIM UNKNOWN OTHER Yes Flagyl Drug Allergy N/A N/A 10/12/2013 Yes morphine Drug Allergy N/A N/A 10/12/2013 Yes Sulfa (Sulfonamide Antibiotics) Drug Allergy N/A N/A 10/12/2013 Yes FLU VACCINE FLU VACCINE Unknown N/A 04/21/2014 Yes morphine [id number] Drug Allergy Severe ITCHING AND FLU 04/28/2016 Yes morphine [id number] Drug Allergy Severe ITCHING FLUSH 08/31/2017 Yes Influenza Virus Vaccines [id number] Drug Allergy Unknown N/A 08/31/2017 Yes metronidazole [id number] Drug Allergy Unknown N/A 08/31/2017 Yes Sulfa (Sulfonamide Antibiotics) [id number] Drug Allergy Unknown N/A 2017 Medications Medication [...] DISORDER 02/25/2012 Ot 560.81 INTEST ADHES W [id number] 03/20/2013 RAN MERRITT SQL ARCHITECT Ot 466.0 ACUTE BRONCHITIS 03/20/2013 RAN MERRITT [...] APRNINA R 780.60 FEVER, UNSPECIFIED 03/09/2014 ANJANA SQL ARCHITECT, ZAC R 786.2 COUGH 03/09/2014 ANJANA SQL ARCHITECT, ZAC R 780.60 FEVER, UNSPECIFIED 03/09/2014 ANJANA SQL ARCHITECT, ZAC R 786.2 COUGH 03/09/2014 ANJANA SQL ARCHITECT, ZAC R 780.60 FEVER, UNSPECIFIED 03/09/2014 ANJANA SQL ARCHITECT, ZAC R 786.2 COUGH 03/09/2014 KALEY SQL ARCHITECT, WHITLEY S 780.60 FEVER, UNSPECIFIED 03/09/2014 KALEY SQL ARCHITECT, WHITLEY S 786.2 COUGH 03/09/2014 PEYTON VALENCIA, [...] Ot 537.0 ACQ PYLORIC STENOSIS 05/10/2014 ANJANA SQL ARCHITECT, ZAC R 530.81 ESOPHAGEAL REFLUX 05/10/2014 ANJANA [...] Ot 531.90 STOMACH ULCER NOS 04/24/2016 MICKEY DNOOHUE, MEGAN Watts Ot 537.0 ACQ PYLORIC STENOSIS [...] Ot A41.9 SEPSIS, UNSPECIFIED ORGANISM 05/27/2016 ELY DONOHEU, YONIS Hua Ot F17.210 NICOTINE DEPENDENCE, CIGARETTES, [...] NOS 08/05/2016 MICKEY DONOHUE, MEGAN Watts Ot 530.11 REFLUX ESOPHAGITIS 08/05/2016 [...] Ot R51 HEADACHE 07/14/2017 MERRITT, PETER J SQL ARCHITECT Ot Z80.0 FAMILY HISTORY OF MALIGNANT NEOPLASM OF 07/14/2017 MERRITT, RAN Bassett SQL ARCHITECT Ot Z87.19 PERSONAL HISTORY OF OTHER DISEASES OF TH 07/14/2017 MERRITT, RAN Bassett SQL ARCHITECT Ot Z87.448 PERSONAL HISTORY OF OTHER DISEASES OF UR 07/14/2017 MERRITTRAN BERNARD Serjio SQL ARCHITECT Ot Z90.49 ACQUIRED ABSENCE OF OTHER SPECIFIED PART 07/14/2017 ARN MERRITT SQL ARCHITECT Ot Z90.710 ACQUIRED ABSENCE OF BOTH CERVIX [...] OF MALIGNANT NEOPLASM OF 07/16/2017 RAN MERRITT SQL ARCHITECT Ot Z87.19 PERSONAL HISTORY OF OTHER DISEASES OF TH 07/16/2017 RAN MERRITT APRN Ot Z87.448 PERSONAL HISTORY OF OTHER DISEASES OF UR 07/16/2017 RAN MERRITT APRN Ot Z90.49 ACQUIRED ABSENCE OF OTHER SPECIFIED PART 07/16/2017 RAN MERRITT SQL ARCHITECT Ot Z90.710 ACQUIRED ABSENCE OF BOTH CERVIX [...] HISTORY OF OTH DISEASES OF THE 08/31/2017 MARCELO MONACO Ot Z87.891 PERSONAL HISTORY OF [...] ALLERGY STATUS TO OTHER ANTIBIOTIC AGENT 12/02/2017 JANI DONOHUE, PRIMO Bassett Ot Z88.2 ALLERGY STATUS TO SULFONAMIDES STATUS 12/02/2017 JANI DONOHUE, PRIMO Bassett Ot Z88.5 ALLERGY STATUS TO NARCOTIC AGENT STATUS 12/02/2017 PRIMO GUNTER MD Ot Z88.7 ALLERGY STATUS TO SERUM AND VACCINE STAT 12/02/2017 PRIMO GUNTER MD Ot Z90.710 ACQUIRED ABSENCE OF BOTH CERVIX AND UTER 12/02/2017 JANI DONOHUE, PRIMO Bassett Ot Z98.890 OTHER SPECIFIED POSTPROCEDURAL STATES 12/03/2017 IRENE DONOHUE, PHILIPP Harris Ot M71.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 [ORDAZ] 12/03/2017 IRENE DONOHUE, PHILIPP R Ot M71.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 [ORDAZ] 12/18/2017 IRENE DONOHUE, PHILIPP R Ot M71.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 [ORDAZ] 02/18/2018 Cynthia Vilchis A 372.00 ACUTE CONJUNCTIVITIS, UNSPECIFIED 02/18/2018 Cynthia Vilchis H10.33 UNSPECIFIED ACUTE CONJUNCTIVITIS, BILATERAL 06/21/2018 Ran Merritt 521.00 DENTAL CARIES, UNSPECIFIED 06/21/2018 Ran Merritt K02.9 DENTAL CARIES, UNSPECIFIED 07/16/2018 ELY DONOHUE, YONIS Hua Ot D64.9 ANEMIA, UNSPECIFIED 07/16/2018 ELY DONOHUE, YONIS Hua Ot G43.909 MIGRAINE, UNSP, NOT INTRACTABLE, WITHOUT 07/16/2018 YONIS GRAVES MD Ot K56.7 ILEUS, UNSPECIFIED 07/16/2018 YONIS GRAVES MD, Ot K59.00 CONSTIPATION, UNSPECIFIED 07/16/2018 YONIS GRAVES MD, Ot R11.2 NAUSEA WITH VOMITING, UNSPECIFIED 07/16/2018 YONIS GRAVES MD, Ot Z79.51 POND WORKER (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 STERO 07/16/2018 YONIS GRAVES MD, Ot Z80.0 FAMILY HISTORY OF MALIGNANT NEOPLASM OF 07/16/2018 YONIS GRAVES MD, Ot Z87.19 PERSONAL HISTORY OF OTHER DISEASES OF 07/16/2018 ELY DONOHUE, YONIS Hua Ot Z87.448 PERSONAL HISTORY OF OTHER DISEASES OF UR 07/16/2018 ELY DONOHUE, YONIS Hua Ot Z87.891 PERSONAL HISTORY OF NICOTINE DEPENDENCE 07/16/2018 ELY DONOHUE, YONIS Hua Ot Z88.2 ALLERGY STATUS TO SULFONAMIDES STATUS 07/16/2018 YONIS GRAVES MD Ot Z88.5 ALLERGY STATUS TO NARCOTIC AGENT STATUS 07/16/2018 YONIS GRAVES MD, Ot Z88.7 ALLERGY STATUS TO SERUM AND VACCINE STAT 07/16/2018 YONIS GRAVES MD, Ot Z88.8 ALLERGY STATUS TO OTH DRUG/MEDS/BIOL SUB 07/16/2018 YONIS GRAVES MD, Ot Z90.49 ACQUIRED ABSENCE OF OTHER SPECIFIED PART 07/16/2018 YONIS GRAVES MD, Ot Z90.710 ACQUIRED ABSENCE OF BOTH CERVIX AND UTER 07/16/2018 MEGAN AREVALO MD Ot V72.84 EXAM PRE-OPERATIVE NOS 07/16/2018 MEGAN AREVALO MD Ot V72.84 EXAM PRE-OPERATIVE NOS 07/16/2018 MICKEY DONOHUE, MEGAN Watts Ot V72.84 EXAM PRE-OPERATIVE NOS 07/16/2018 MICKEY DONOHUE, MEGAN Watts Ot 530.11 REFLUX ESOPHAGITIS 07/16/2018 MICKEY DONOHUE, MEGAN Watts Ot 531.90 STOMACH ULCER NOS 07/16/2018 MICKEY DONOHUE, MEGAN Watts Ot 537.0 ACQ PYLORIC STENOSIS 07/16/2018 MEGAN AREVALO MD Ot V72.84 EXAM PRE-OPERATIVE NOS 07/16/2018 MEGAN AREVALO MD Ot V72.84 EXAM PRE-OPERATIVE NOS 07/16/2018 MICKEY DONOHUE, MEGAN Watts Ot 530.11 REFLUX ESOPHAGITIS 07/16/2018 MEGAN AREVALO MD Ot 537.0 ACQ PYLORIC STENOSIS 07/16/2018 MEGAN AREVALO MD Ot V72.84 EXAM PRE-OPERATIVE NOS 07/16/2018 MICKEY DONOHUE, MEGAN Watts Ot 530.11 REFLUX ESOPHAGITIS 07/16/2018 MEGAN AREVALO MD Ot 531.90 STOMACH ULCER NOS 07/16/2018 MICKEY MD, MEGAN S Ot 537.0 ACQ PYLORIC STENOSIS 07/16/2018 MICKEY DONOHUE, MEGAN S Ot V72.84 EXAM PRE-OPERATIVE NOS 07/16/2018 MICKEY DONOHUE, MEGAN S Ot V72.84 EXAM PRE-OPERATIVE NOS 07/16/2018 MICKEY DONOHUE, MEGAN S Ot V72.84 EXAM PRE-OPERATIVE NOS 07/16/2018 MICKEY DONOHUE, MEGAN S Ot V72.84 EXAM PRE-OPERATIVE NOS 07/16/2018 MICKEY DONOHUE, MEGAN S Ot V72.84 EXAM PRE-OPERATIVE NOS 07/16/2018 Ot Z12.31 ENCNTR SCREEN MAMMOGRAM FOR MALIGNANT NE 07/16/2018 VIDA CHANCE DO Ot R11.2 NAUSEA WITH VOMITING, UNSPECIFIED 07/16/2018 YANI DONOHUE, GARRY Zhao Ot D50.0 IRON DEFICIENCY ANEMIA SECONDARY TO BLOO 07/16/2018 RITU VANCE DO Ot G89.29 OTHER CHRONIC PAIN 07/16/2018 RITU VANCE DO Ot M25.562 PAIN IN LEFT KNEE 07/16/2018 OTHER, UNLISTED Ot M25.562 PAIN IN LEFT KNEE 07/16/2018 OTHER, UNLISTED Ot Z53.8 PROCEDURE AND TREATMENT NOT CARRIED OUT 07/16/2018 IRENE DONOHUE, PHILIPP Harris Ot M71.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 [ORDAZ] 07/20/2018 ELY DONOHUE, YONIS Hua Ot D64.9 ANEMIA, UNSPECIFIED 07/20/2018 ELY DONOHUE, YONIS Hua Ot G43.909 MIGRAINE, UNSP, NOT INTRACTABLE, WITHOUT 07/20/2018 ELY DONOHUE, YONIS Hua Ot K56.7 ILEUS, UNSPECIFIED 07/20/2018 YONIS GRAVES MD, Ot K59.00 CONSTIPATION, UNSPECIFIED 07/20/2018 YONIS GRAVES MD, Ot R11.2 NAUSEA WITH VOMITING, UNSPECIFIED 07/20/2018 ELY DONOHUE, YONIS Hua Ot Z79.51 LONGTERM (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 INHALED STERO 07/20/2018 YONIS GRAVES MD, Ot Z80.0 FAMILY HISTORY OF MALIGNANT NEOPLASM OF 07/20/2018 ELY DONOHUE, YONIS T Ot Z87.19 PERSONAL HISTORY OF OTHER DISEASES OF TH 07/20/2018 YONIS GRAVES MD Ot Z87.448 PERSONAL HISTORY OF OTHER DISEASES OF UR 07/20/2018 YONIS GRAVES MD, Ot Z87.891 PERSONAL HISTORY OF NICOTINE DEPENDENCE 07/20/2018 YONIS GRAVES MD, Ot Z88.2 ALLERGY STATUS TO SULFONAMIDES STATUS 07/20/2018 YONIS GRAVES MD Ot Z88.5 ALLERGY STATUS TO NARCOTIC AGENT STATUS 07/20/2018 YONIS GRAVES MD, Ot Z88.7 ALLERGY STATUS TO SERUM AND VACCINE STAT 07/20/2018 YONIS GRAVES MD, Ot Z88.8 ALLERGY STATUS TO OTH DRUG/MEDS/BIOL SUB 07/20/2018 YONIS GRAVES MD Ot Z90.49 ACQUIRED ABSENCE OF OTHER SPECIFIED PART 07/20/2018 YONIS GRAVES MD, Ot Z90.710 ACQUIRED ABSENCE OF BOTH CERVIX AND UTER 07/22/2018 STEPHANIE DONOHUE, KANE Melendez Ot Z01.818 ENCOUNTER FOR OTHER PREPROCEDURAL EXAMIN 07/23/2018 KANE BROWN MD, Ot Z01.818 ENCOUNTER FOR OTHER PREPROCEDURAL EXAMIN 07/27/2018 KANE BROWN MD Ot F41.9 ANXIETY DISORDER, UNSPECIFIED 07/27/2018 KANE BROWN MD, Ot R10.13 EPIGASTRIC PAIN 07/27/2018 KANE BROWN MD Ot R11.2 NAUSEA WITH VOMITING, UNSPECIFIED 07/27/2018 KANE BROWN MD Ot R19.4 CHANGE IN BOWEL HABIT 07/27/2018 KANE BROWN MD Ot Z79.899 OTHER LONGTERM (CURRENT) DRUG THERAPY 07/27/2018 KANE BROWN MD Ot Z80.0 FAMILY HISTORY OF MALIGNANT NEOPLASM OF 07/27/2018 KANE BROWN MD, Ot Z86.2 PRSNL HISTORY OF DIS OF THE BLD/BLD-FORM 07/27/2018 KANE BROWN MD, Ot Z87.11 PERSONAL HISTORY OF PEPTIC ULCER DISEASE 07/27/2018 KANE BROWN MD, Ot Z87.891 PERSONAL HISTORY OF NICOTINE DEPENDENCE 07/27/2018 KANE BROWN MD, Ot Z88.2 ALLERGY STATUS TO SULFONAMIDES STATUS 07/27/2018 KANE BROWN MD Ot Z88.5 ALLERGY STATUS TO NARCOTIC AGENT STATUS 07/27/2018 KANE BROWN MD, Ot Z98.890 OTHER SPECIFIED POSTPROCEDURAL STATES 07/29/2018 KANE BROWN MD, Ot F41.9 ANXIETY DISORDER, UNSPECIFIED 07/29/2018 KANE BROWN MD Ot R10.13 EPIGASTRIC PAIN 07/29/2018 KANE BROWN MD, Ot R11.2 NAUSEA WITH VOMITING, UNSPECIFIED 07/29/2018 KANE BROWN MD Ot R19.4 CHANGE IN BOWEL HABIT 07/29/2018 KANE BROWN MD, Ot Z79.899 OTHER LONGTERM (CURRENT) DRUG THERAPY 07/29/2018 KANE BROWN MD, Ot Z80.0 FAMILY HISTORY OF MALIGNANT NEOPLASM OF 07/29/2018 KANE BROWN MD, Ot Z86.2 PRSNL HISTORY OF DIS OF THE BLD/BLD-FORM 07/29/2018 KANE BROWN MD, Ot Z87.11 PERSONAL HISTORY OF PEPTIC ULCER DISEASE 07/29/2018 KANE BROWN MD, Ot Z87.891 PERSONAL HISTORY OF NICOTINE DEPENDENCE 07/29/2018 KANE BROWN MD, Ot Z88.2 ALLERGY STATUS TO SULFONAMIDES STATUS 07/29/2018 KAEN BROWN MD, Ot Z88.5 ALLERGY STATUS TO NARCOTIC AGENT STATUS 07/29/2018 KANE BROWN MD, Ot Z98.890 OTHER SPECIFIED POSTPROCEDURAL STATES Procedures Code Description Performed By Performed On 38.93 VENOUS CATHETERIZATION NEC 02/21/2012 54.51 LAPAROSCOP LYSIS-PERITONEAL ADHES 02/21/2012 20112 ROUTINE VENIPUNCTURE 10/12/2013 57489 CMP 10/13/2013 2235327 GFR CALC (RESULT ONLY) 10/13/2013 42118 LIPASE 10/13/2013 64184 ROUTINE VENIPUNCTURE 03/09/2014 85342 CBC 03/09/2014 73351 MYCOPLASMA ANTIBODY 03/09/2014 63644 OXIMETRY 03/09/2014 72736 UA W/ CULTURE IF INDICATED 04/06/2014 24479 CULTURE URINE 04/07/2014 14234 INFLUENZA A & B (IN-HOUSE) 06/27/2014 [id number] CONTROL BLEEDING IN GASTROINTESTINAL TRA 04/28/2016 Results [...] CELLS LEUKO REDUCED AS1 TRANSFUSED 04/24/16 1432 NR Blood type T Indirect antibody screen panel - 04/24/16 13:44 ABO+Rh group OP NRG Transfusion band number [id number] NRG Blood group antibody screen NEGATIVE NRG [...] RED CELLS LEUKO REDUCED AS1 NOT AVAILABLE NR Blood type T Indirect antibody screen panel - 04/28/16 11:43 ABO+Rh group OP [facility] Transfusion band number [id number] [facility] Blood group antibody screen NEGATIVE [facility] Comprehensive metabolic panel - 04/28/16 [...] culture - 05/24/16 11:15 Bacterial urine culture [id number] NRG COLONY COUNT >100,000/ML NRG FTX;REPORTABLE SENSITIVITY [...] 15:00 Bacteria identification in wound by culture [id number] NRG FREE TEXT EXTERNAL SENSTIVITY REPORTED 06/24 [...] culture - 08/31/17 18:15 Bacterial urine culture [id number] NRG COLONY COUNT >100,000/ML NRG FTX;REPORTABLE SENSITIVITY REPORTED 09/02/17 8:05 NRG FREE TEXT ENTRY 2 PLUS, NRG FREE TEXT ENTRY 3 MIXED GRAM POSITIVES <10,000/ML NRG Bacterial susceptibility panel - 08/31/17 18:15 Gentamicin [...] possible fastidious, sent to Reference lab for BRTINI and ID MEDIA PLATED Setup at 19:19 on 02/18/2018 A1C - 03/25/18 09:19 HEMOGLOBIN A1c 5.1 % of total Hgb <5.7 Complete blood count (CBC) with automated white blood cell (WBC) differential - 07/16/18 15:02 Blood leukocytes automated count (number/volume) 10.8 10*3/uL 4.3-11.0 Blood erythrocytes automated count (number/volume) 4.75 10*6/uL 4.35-5.85 Venous blood hemoglobin measurement (mass/volume) 14.7 g/dL 11.5-16.0 Blood hematocrit (volume fraction) 45 % 35-52 Automated erythrocyte mean corpuscular volume 94 [foz_us] 80-99 Automated erythrocyte mean corpuscular hemoglobin (mass per erythrocyte) 31 pg 25-34 Automated erythrocyte mean corpuscular hemoglobin concentration measurement ( mass/volume) 33 g/dL 32-36 Automated erythrocyte distribution width ratio 14.7 % 10.0-14.5 Automated blood platelet count (count/volume) 362 10*3/uL 130-400 Automated blood platelet mean volume measurement 9.8 [foz_us] 7.4-10.4 Automated blood neutrophils/100 leukocytes 77 % 42-75 Automated blood lymphocytes/100 leukocytes 15 % 12-44 Blood monocytes/100 leukocytes 6 % 0-12 Automated blood eosinophils/100 leukocytes 1 % 0-10 Automated blood basophils/100 leukocytes 0 % 0-10 Blood neutrophils automated count (number/volume) 8.3 10*3 1.8-7.8 Blood lymphocytes automated count (number/volume) 1.6 10*3 1.0-4.0 Blood monocytes automated count (number/volume) 0.7 10*3 0.0-1.0 Automated eosinophil count 0.1 10*3/uL 0.0-0.3 Automated blood basophil count (count/volume) 0.0 10*3/uL 0.0-0.1 Complete urinalysis with reflex to culture - 07/16/18 15:02 Urine color determination YELLOW NRG Urine clarity determination CLEAR NRG Urine pH measurement by test strip 6 5-9 Specific gravity of urine by test strip 1.015 1.016- 1.022 Urine protein assay by test strip, semi-quantitative 2+ NEGATIVE Urine glucose detection by automated test strip NEGATIVE NEGATIVE Erythrocytes detection in urine sediment by light microscopy 1+ NEGATIVE Urine ketones detection by automated test strip 1+ NEGATIVE Urine nitrite detection by test strip NEGATIVE NEGATIVE Urine total bilirubin detection by test strip NEGATIVE NEGATIVE Urine urobilinogen measurement by automated test strip (mass/volume) NORMAL NORMAL Urine leukocyte esterase detection by dipstick 1+ NEGATIVE Automated urine sediment erythrocyte count by microscopy (number/high power field) [HPF] NRG Automated urine sediment leukocyte count by microscopy (number/high power field ) [HPF] NRG Bacteria detection in urine sediment by light microscopy FEW NRG Squamous epithelial cells detection in urine sediment by light microscopy 5-10 NRG Crystals detection in urine sediment by light microscopy NONE NRG Casts detection in urine sediment by light microscopy NONE NRG Mucus detection in urine sediment by light microscopy NEGATIVE NRG Complete urinalysis with reflex to culture NO NRG Comprehensive metabolic panel - 07/16/18 15:16 Serum or plasma sodium measurement (moles/volume) 139 mmol/L 135-145 Serum or plasma potassium measurement (moles/volume) 5.1 mmol/L 3.6-5.0 Serum or plasma chloride measurement (moles/volume) 102 mmol/L 98-107 Carbon dioxide 27 mmol/L 21-32 Serum or plasma anion gap determination (moles/volume) 10 mmol/L 5-14 Serum or plasma urea nitrogen measurement (mass/volume) 11 mg/dL 7-18 Serum or plasma creatinine measurement (mass/volume) 0.84 mg/dL 0.60-1.30 Serum or plasma urea nitrogen/creatinine mass ratio 13 NRG Serum or plasma creatinine measurement with calculation of estimated glomerular filtration rate > NRG Serum or plasma glucose measurement (mass/volume) 87 mg/dL 70-105 Serum or plasma calcium measurement (mass/volume) 9.5 mg/dL 8.5-10.1 Serum or plasma total bilirubin measurement (mass/volume) 0.2 mg/dL 0.1-1.0 Serum or plasma alkaline phosphatase measurement (enzymatic activity/volume) 88 U/L 40-136 Serum or plasma aspartate aminotransferase measurement (enzymatic activity/ volume) 25 U/L 5-34 Serum or plasma alanine aminotransferase measurement (enzymatic activity/volume ) 11 U/L 0-55 Serum or plasma protein measurement (mass/volume) 7.5 g/dL 6.4-8.2 Serum or plasma albumin measurement (mass/volume) 4.1 g/dL 3.2-4.5 CALCIUM CORRECTED 9.4 mg/dL 8.5-10.1 Lipase - 07/16/18 15:16 Lipase 51 U/L 8-78 Encounters ACCT No. Visit Date/Time Discharge Status Pt. Type Provider Facility Loc./Unit Complaint [id number] 10/03/2014 11:20:00 10/03/2014 23:59:59 CLS Outpatient JONATHAN TODD DO [id number] 06/27/2014 16:12:00 06/27/2014 23:59:59 CLS Outpatient WHITLEY ROCHE APRN [id number] 05/10/2014 15:51:00 05/10/2014 23:59:59 CLS Outpatient ANJANA ADLER ZAC R [id number] 04/06/2014 08:50:00 04/06/2014 23:59:59 CLS Outpatient CHERI YEUNG APRNINA R [id number] 03/09/2014 15:13:00 03/09/2014 23:59:59 CLS Outpatient ANJANA ADLER ZAC R [id number] 10/13/2013 00:00:00 10/13/2013 23:59:59 CLS Outpatient TAMMY SIMS DDS [id number] 06/21/2018 15:04:00 06/21/2018 16:02:00 [facility] [id number] 02/18/2018 18:40:00 02/18/2018 19:15:00 DIS Outpatient JonahbaltazarCynthia [id number] 11/09/2017 12:10:00 11/09/2017 23:59:00 DIS Outpatient Lucia Brown [id number] 11/09/2017 00:00:00 11/09/2017 23:59:00 DIS Outpatient PHILIPP BONILLA [id number] 02/18/2018 19:50:11 Document Registration [id number] 07/27/2018 10:53:00 07/27/2018 14:10:00 DIS Outpatient KANE BROWN MD [facility] ENDO N V/HX POLYPS/IRREG BM [id number] 07/22/2018 05:40:00 07/22/2018 16:16:00 DIS Outpatient KANE BROWN MD [facility] PREOP COLONOSCOPY/EGD [id number] 07/16/2018 14:32:00 07/16/2018 19:01:00 DIS Emergency YONIS GRAVES MD [facility] ER ABD PAIN [id number] 12/02/2017 06:49:00 12/02/2017 23:59:59 CLS Outpatient PHILIPP BONILLA MD [facility] RAD LEFT KNEE PAIN [id number] 11/30/2017 00:05:00 11/30/2017 03:56:00 DIS Emergency PRIMO GUNTER MD [facility] ER AB PAIN [id number] 11/27/2017 07:53:00 11/27/2017 23:59:59 CLS Outpatient OTHER, UNLISTED [facility] RAD LEFT KNEE PAIN [id number] 09/09/2017 08:19:00 09/09/2017 23:59:59 CLS Outpatient RITU VANCE DO [facility] RAD M25.562 G89.29 [id number] 09/05/2017 09:21:00 09/05/2017 23:59:59 CLS Preadmit NASEEM BELLE MD [facility] RAD ROUTINE [id number] 08/31/2017 18:08:00 08/31/2017 21:17:00 DIS Emergency MARCELO MONACO [facility] ER STOMACH PAIN [id number] 07/14/2017 15:23:00 07/14/2017 18:23:00 DIS Emergency RAN MERRITT APRN [facility] ER HEADACHE [id number] 08/05/2016 13:36:00 08/05/2016 15:35:00 DIS Emergency SONNY KRISHNAN DO [facility] ER FEVER COUGH/CHEST CONGESTION EARACHE ABD PAIN [id number] 06/22/2016 20:10:00 06/23/2016 14:10:00 DIS Inpatient DELPHINE MCCARTHY MD [facility] 4TH ABDOMINAL PAIN, LEUKOCYTOSIS, FEVER [id number] 05/24/2016 09:56:00 05/24/2016 12:55:00 DIS Emergency YONIS GRAVES MD [facility] ER L SIDED ABD PAIN [id number] 05/21/2016 10:11:00 05/21/2016 23:59:59 CLS Outpatient GARRY LOMELI MD [facility] LAB CMP [id number] 04/28/2016 14:21:00 04/30/2016 13:55:00 DIS Inpatient JENNYFER PELAYO DO [facility] 4TH UGI BLEED/HYPOTENSION [id number] 04/24/2016 13:12:00 04/24/2016 14:55:00 DIS Emergency CROW WHITE MD [facility] ER ABD PAIN/VOMITING BLOOD [id number] 04/23/2016 13:55:00 04/23/2016 23:59:59 CLS Outpatient VIDA CHANCE DO [facility] LAB NAUSEA AND VOMITING [id number] 04/06/2015 12:03:00 04/06/2015 14:18:00 DIS Emergency MARCELO MONACO [facility] ER DENTAL PAIN [id number] 10/17/2014 13:34:00 10/17/2014 16:14:00 DIS Emergency ELY DONOHUE, YONIS Hua [facility] ER [id number] 07/14/2014 08:00:00 07/14/2014 23:59:59 CLS Preadmit MEGAN AREVALO MD [facility] DYSPHASIA [id number] 07/13/2014 07:15:00 07/13/2014 23:59:59 CLS Outpatient MEGAN AREVALO MD [facility] PREOP DYSPHASIA [id number] 07/09/2014 21:22:00 07/09/2014 23:36:00 DIS Emergency SONNY KRISHNAN DO [facility] ER DIZZINESS, DISCOLORED STOOLS [id number] 07/08/2014 16:08:00 07/08/2014 19:07:00 DIS Emergency CROW WHITE MD [facility] ER DISCOLORED URINE,ABD PAIN [id number] 06/09/2014 07:00:00 06/09/2014 09:50:00 DIS Outpatient MEGAN AREVALO MD [facility] SDC STRICTURE [id number] 06/08/2014 13:02:00 06/08/2014 23:59:59 CLS Outpatient MEGAN AREVALO MD [facility] PREOP STRICTURE [id number] 05/26/2014 07:01:00 05/26/2014 09:50:00 DIS Outpatient MEGAN AREVALO MD [facility] DYSPHASIA [id number] 05/25/2014 07:18:00 05/25/2014 23:59:59 CLS Outpatient MEGAN AREVALO MD [facility] PREOP DYSPAHSIA [id number] 05/12/2014 07:59:00 05/12/2014 10:35:00 DIS Outpatient MEGAN AREVALO MD [facility] STRICTURE [id number] 05/11/2014 07:39:00 05/11/2014 23:59:59 CLS Outpatient MEGAN AREVALO MD [facility] PREOP STRICTURE [id number] 05/05/2014 06:56:00 05/05/2014 23:59:59 CLS Outpatient MEGAN AREVALO MD [facility] STRICTURE [id number] 05/04/2014 07:54:00 05/04/2014 23:59:59 CLS Outpatient MEGAN AREVALO MD [facility] PREOP STRICTURE [id number] 04/28/2014 07:01:00 04/28/2014 23:59:59 CLS Outpatient MEGAN AREVALO MD [facility] STRICTURE [id number] 04/27/2014 07:24:00 04/27/2014 23:59:59 CLS Outpatient MEGAN AREVALO MD [facility] PREOP STRICTURE [id number] 04/21/2014 06:36:00 04/21/2014 08:55:00 DIS Outpatient MEGAN AREVALO MD [facility] DYSPHASA; ESOPHAGEAL STRICTURE [id number] 04/20/2014 07:27:00 04/20/2014 23:59:59 CLS Outpatient MEGAN AREVALO MD [facility] PREOP DYSPHASA; ESOPHAGEAL STRICTURE [id number] 04/14/2014 07:13:00 04/14/2014 10:50:00 DIS Outpatient MEGAN AREVALO MD [facility] DYSPHAGA; ESOPHAGEAL STRICTURE [id number] 04/07/2014 07:05:00 04/07/2014 09:25:00 DIS Outpatient MEGAN AREVALO MD [facility] DYSPHAGA; ESOPHAGEAL STRICTURE [id number] 03/31/2014 06:43:00 03/31/2014 09:20:00 DIS Outpatient MEGAN AREVALO MD [facility] SDC STRICTURE [id number] 03/30/2014 07:22:00 03/30/2014 23:59:59 CLS Outpatient MEGAN AREVALO MD [facility] PREOP STRICTURE [id number] 03/17/2014 06:23:00 03/17/2014 23:59:59 CLS Outpatient MEGAN AREVALO MD [facility] PRE-PYLORIC ULCER [id number] 03/16/2014 07:46:00 03/16/2014 23:59:59 CLS Outpatient MEGAN AREVALO MD [facility] PREOP PRE-PYLORIC ULCER [id number] 02/24/2014 07:24:00 02/24/2014 09:20:00 DIS Outpatient MEGAN AREVALO MD [facility] PERIPYLORIC ANTRAL ULCER [id number] 02/23/2014 07:38:00 02/23/2014 23:59:59 CLS Outpatient MEGAN AREVALO MD [facility] PREOP PERIPYLORIC ANTRAL ULCER [id number] 01/13/2014 06:41:00 01/13/2014 10:20:00 DIS Outpatient MEGAN AREVALO MD [facility] GERD [id number] 01/12/2014 07:35:00 01/12/2014 23:59:59 CLS Outpatient MEGAN AREVALO MD [facility] PREOP GERD [id number] 12/17/2013 12:44:00 12/18/2013 11:57:00 [facility] VOMIT[facility] UTI [id number] 10/20/2013 17:09:00 10/20/2013 18:45:00 DIS Emergency PÉREZ HORVATH MD [facility] ER ABD PAIN [id number] 09/26/2013 14:57:00 09/26/2013 17:47:00 DIS Emergency PÉREZ HORVATH MD [facility] ER NAUSEA VOMITING [id number] 03/20/2013 12:48:00 03/20/2013 15:50:00 DIS Emergency RAN MERRITT APRN [facility] ER COUGH CONGESTION [id number] 08/14/2018 10:20:00 ACT Emergency SASHA PEREZ [facility] ER ABD PAIN;N/V [id number] 10/06/2015 14:07:00 Document Registration [id number] 07/20/2014 13:33:00 Document Registration [id number] 02/19/2012 09:56:00 Document Registration [id number] 02/18/2012 10:41:00 Document Registration [id number] 02/07/2012 08:38:00 Document Registration [id number] 07/24/2011 03:13:00 Document Registration [id number] 11/08/2010 09:10:00 Document Registration [id number] 10/10/2010 10:20:00 Document Registration [id number] 09/05/2010 10:15:00 Document Registration [id number] 08/23/2010 08:34:00 Document Registration [id number] 08/15/2010 15:18:00 Document Registration [id number] 08/12/2018 08:40:00 ACT Outpatient SONNY PARRISH APRN [facility] [id number] 03/25/2018 08:40:00 Document Registration [id number] 09/14/2016 16:06:00 Document Registration
[2018-08-14 13:20] VITALS: BP 135/78
== END 2018-08-14 13:23 | disposition home or self-care (01) ==
LOC: EDUNIT# 10:19 → ER 10:20
DX: K59.00 Constipation, unspecified (principal); R11.2 Nausea with vomiting, unspecified; G43.909 Migraine, unspecified, not intractable, without status migrainosus; Z88.5 Allergy status to narcotic agent; Z88.2 Allergy status to sulfonamides; Z88.8 Allergy status to other drugs, medicaments and biological substances; Z90.49 Acquired absence of other specified parts of digestive tract; Z90.710 Acquired absence of both cervix and uterus
CPT/HCPCS: 36415; 74177; 80053; 81000; 82150; 83690; 85025

== ENCOUNTER → 2018-12-31 | Outpatient (CLI) | payer BC ==
[~2018-12-31] MED LIST changes: +BARIUM SUSPENSION 105% (LIQUID POLIBAR PLUS) 240 ML/DOSE PO ONE; +BARIUM SUSPENSION 60% (LIQUID EZ PAQUE) 240 ML DOSE PO ONE; +ONDN4T PO
--- NOTE | 2018-12-31 18:14 | Diagnostic Imaging Report ---
INDICATION: Upper abdominal pain for six months with difficulty keeping food down. Patient has had three stomach surgeries since May 2016. TECHNIQUE: Patient ingested effervescent crystals as well as thin and thick barium and imaging of the esophagus, stomach, and small bowel was performed. FINDINGS: Preliminary radiograph of the abdomen demonstrates bowel suture overlying the left abdomen. There is a large amount of stool throughout the colon, suggestive of constipation. The esophagus has a smooth contour. No mass or stricture is identified. No gastroesophageal reflux or hiatal hernia was demonstrated. There appear to be postsurgical changes to the stomach. There appears to have been partial gastrectomy. There is prompt emptying of barium from the stomach into the small bowel loops. Note gastric outlet obstruction is identified. There is slight delay in transit of contrast through the small bowel loops, however contrast did reach the right colon at approximately three to four hours. Small bowel does not appear to be appreciably dilated. Mucosal fold pattern is unremarkable. Terminal ileum is unremarkable. IMPRESSION: Postsurgical changes to the stomach. No gastric outlet or small bowel obstruction is identified. Dictated by: Dictated on workstation # [id number]
== END ==
LOC: RAD 08:37
PROVIDERS: ATTEND Internal Medicine Gastroenterology
DX: K56.600 Partial intestinal obstruction, unspecified as to cause (principal); Z98.890 Other specified postprocedural states
CPT/HCPCS: 74249

== ENCOUNTER → 2019-01-14 | Outpatient (CLI) | payer BC ==
[~2019-01-14] MED LIST changes: -BARIUM SUSPENSION 105% (LIQUID POLIBAR PLUS) 240 ML/DOSE PO ONE; -BARIUM SUSPENSION 60% (LIQUID EZ PAQUE) 240 ML DOSE PO ONE
--- NOTE | 2019-01-14 12:17 | Diagnostic Imaging Report ---
INDICATION: Nausea and vomiting. TECHNIQUE: The patient was administered 1.1 mCi of technetium at 99M sulfur colloid labeled to a test meal and imaging over the abdomen was performed. FINDINGS: The time of half emptying of the stomach is markedly prolonged and calculated to be approximately 598 minutes. IMPRESSION: Significant delay in gastric emptying. Dictated by: Dictated on workstation # [id number]
== END ==
LOC: CARD 06:44
PROVIDERS: ATTEND Internal Medicine Gastroenterology
DX: K30 Functional dyspepsia (principal)
CPT/HCPCS: 78264

== ENCOUNTER 2019-02-06 18:04 | Emergency (ER) | payer BC | END 2019-02-06 21:38 | disposition home or self-care (01) | LOC: ER 18:04 ==

== ENCOUNTER → 2019-03-16 | Outpatient (CLI) | payer BC ==
[~2019-03-16] MED LIST changes: +POLY17PO6 PO
--- NOTE | 2019-03-16 15:21 | Diagnostic Imaging Report ---
EXAMINATION: Magnetic resonance imaging of the left knee without intravenous contrast. DATE: March 16, 2019. COMPARISON: MRI left knee of December 02, 2017. INDICATION: 53-year-old female, left knee pain. TECHNIQUE: Multiplanar/multisequence noncontrast enhanced MR imaging was accomplished. FINDINGS: MENISCI: There is signal within the medial meniscus not meeting strict MRI criteria for diagnosis of tear. There is no medial meniscal extrusion or parameniscal cyst. The lateral meniscus is intact. LIGAMENTS AND TENDONS: The anterior and posterior cruciate ligaments are intact. The medial collateral ligament is intact. The iliotibial band, mid third lateral capsular ligament, fibular collateral ligament, biceps femoris tendon, and conjoined tendon are intact. The quadriceps tendon and patella ligament are intact. JOINT: The articular cartilage surfaces are intact. There is no knee joint effusion, prominent synovitis, or intra-articular body. BONE: There is unremarkable bone marrow signal. Specifically, negative for fracture, osteomyelitis, osteonecrosis, or marrow replacing process. BURSAE AND SOFT TISSUES: There is a small slitlike Spaulding's cyst. There is prominent nonspecific anterior, medial, and lateral subcutaneous edema with mild additional posterior subcutaneous edema. IMPRESSION: 1. Intact menisci and cruciate ligaments. 2. Extensive fairly diffuse subcutaneous edema, most prominent anteriorly, medially, and laterally, which is nonspecific. No clear focal fluid collection. 3. Small Spaulding's cyst. 4. Grossly intact articular cartilage. No knee joint effusion. 5. No acute fracture, bone contusion, or other bone marrow signal abnormality. Dictated by: Dictated on workstation # [id number]
== END ==
LOC: RAD 09:55
PROVIDERS: ATTEND Orthopaedic Surgery
DX: M71.22 Synovial cyst of popliteal space [Baker], left knee (principal)
CPT/HCPCS: 73721

== ENCOUNTER 2019-04-02 21:11 | Emergency (ER) | payer BC ==
[~2019-04-02] VITALS: Ht 152.4 cm; Wt 49.5 kg
[2019-04-02] MEDS ORDERED: RT-ALBUTEROL/IPRATROPIUM 3 ML (DUONEB) VIAL INH ONE (21:45)
[2019-04-02] MEDS ORDERED: ASPIRIN 81 MG CHEW (CHILDREN'S ASA) PO ONE (21:45)
--- NOTE | 2019-04-02 21:46 | ED Lower Extremity ---
General Chief Complaint: Chest Pain Stated Complaint: SWELLING IN LEGS Source: patient Exam Limitations: no limitations History of Present Illness Date Seen by Provider: Apr 02, 2019 Time Seen by Provider: 21:27 Initial Comments Patient presents to ER by private conveyance with chief complaint of bilateral leg swelling and tenderness as well as minor chest pain/discomfort and progressively worsening shortness of breath the past month. She had routine labs done a month ago by Duncan Acosta, primary care and was told that her potassium and salts were off as well as her protein was low. She mentioned the swelling and so he added a BNP which was elevated but she does not know the number. She does not have a known history of heart failure coronary disease familial history of coronary disease, high blood pressure diabetes or hypercholesterolemia. She does smoke about a quarter pack per day. She has chronic nausea after eating since she had a stomach surgery secondary to ulcers in 2016 and has had subsequent malnutrition. She denies any significant weight loss in the last year. She's not having any diarrhea fever chills. She does have an occasional productive cough. She denies apnea but says she sleeps on 2 pillows. She says her dyspnea worse with exertion. Her last appointment with primary care was Friday, 5 days ago and at that time because of the elevated BNP she was post to follow-up with Dr. Zaidi worried she says no and call to set that appointment up and her legs are hurting to the point that even her hydrocodone does not help tonight. Allergies and Home Medications Allergies Coded Allergies: morphine (Verified Allergy, Severe, ITCHING & FLUSHING, PT HAS RECEIVED HYDROCODONE IN THE PAST, 08/31/17) Influenza Virus Vaccines (Unverified Allergy, Unknown, 08/31/17) metronidazole (Verified Allergy, Unknown, 08/31/17) Sulfa (Sulfonamide Antibiotics) (Verified Adverse Reaction, Unknown, 08/31/17) Home Medications Calcium Carbonate/Vitamin D3 1 Each Tablet, 1 TAB PO BID, (Reported) Cyanocobalamin (Vitamin B-12) 2,500 Mcg Tablet, 2,500 MCG PO DAILY, (Reported) Dicyclomine HCl 20 Mg Tablet, 20 MG PO QID PRN for HEARTBURN, (Reported) Estrogen,Sylvie/Me-Testosterone 1 Each Tablet, 2 TAB PO DAILY, (Reported) Gabapentin 300 Mg Capsule, 600 MG PO TID, (Reported) TAKES 2 (300 MG) CAPSULES Ondansetron HCl 4 Mg Tab, 4 MG PO Q4H PRN for NAUSEA/VOMITING-1ST LINE Prescribed by: SASHA PEREZ on 08/14/18 1304 Pantoprazole Sodium 40 Mg Tablet.dr, 40 MG PO BID, (Reported) Polyethylene Glycol 3350 17 Gm Powd.pack, 17 GM PO BID PRN PRN for CONSTIPATION- 1ST LINE Prescribed by: PRIMO GUNTER on 02/06/192112 Sucralfate 1 Gm/10 Ml Oral.susp, 1 GM PO QID 30 minutes before meals and at bedtime. Crush and slurry if tablet is substituted. Prescribed by: YONIS BRADLEY on 07/16/181852 Sucralfate 1 Gm Tablet, 1 GM PO QID Prescribed by: PRIMO GUNTER on 02/06/192112 Patient Home Medication List Home Medication List Reviewed: Yes Review of Systems Constitutional: No chills, No diaphoresis EENTM: No ear discharge, No ear pain Respiratory: No cough, No dyspnea on exertion Cardiovascular: see HPI, chest pain, edema; No Hx of Intervention, No palpitations, No syncope, No vascular heart diseas Gastrointestinal: No abdominal pain, No constipation, No diarrhea, No nausea, No vomiting Genitourinary: No discharge, No dysuria Musculoskeletal: No back pain, No joint pain Past Ilmtmgs-Dbujbt-Hrniwf Hx Patient Social History Alcohol Use: Denies Use Recreational Drug Use: No Smoking Status: Current Everyday Smoker (0.25 ppd) Type Used: Cigarettes 2nd Hand Smoke Exposure: No Recent Foreign Travel: No Contact w/Someone Who Travel: No Recent Hopitalizations: No Immunizations Up To Date Tetanus Booster (TDap): More than 5yrs Seasonal Allergies Seasonal Allergies: Yes Past Medical History Surgeries: Yes (partial gastrectomy) Abdominal, Appendectomy, Hysterectomy Respiratory: No Cardiac: No Neurological: Yes Headaches /Migraines 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: Yes 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, Ovarian Cyst [employer]IAN History: Hysterectomy Sexually Transmitted Disease: No HIV/AIDS: No Genitourinary: No Gastrointestinal: Yes Gastrointestinal Bleed, Obstructive Bowel, Ulcer Musculoskeletal: Yes Scoliosis Endocrine: Yes (hypoglycemia) HEENT: No Loss of Vision: Denies Hearing Impairment: Denies Cancer: No Psychosocial: No Integumentary: No Blood Disorders: Yes (anemia) Adverse Reaction/Blood Tranf: No Family Medical History Cancer of colon GRANDMOTHER Family history: Diabetes mellitus 19 FATHER Family history: Hypertension 19 MOTHER Stroke 19 MOTHER No Pertinent Family Hx Physical Exam Vital Signs Vital Signs - First Documented 04/02/19 21:24 Temp 36.7 Pulse 100 Resp 18 B/P (MAP) 134/81 (98) Pulse Ox 98 O2 Delivery Room Air Capillary Refill : Height, Weight, BMI Height: 5'0" Weight: 106lbs. 0.0oz. 48.094124ca; 22.3 BMI Method:Stated General Appearance: WD/WN, no apparent distress HEENT: PERRL/EOMI, normal ENT inspection, pharynx normal Neck: non-tender, full range of motion Cardiovascular: normal peripheral pulses, regular rate, rhythm, no murmur, other (1+ pitting edema bilateral lower extremities up to the calves) Respiratory: chest non-tender, no respiratory distress, no accessory muscle use, rhonchi (faint bilateral), wheezing (faint) Feet: bilateral foot normal range of motion, bilateral foot no evidence of injury, bilateral foot soft tissue tenderness, bilateral foot swelling (1+ pitting) Neurologic/Tendon: normal sensation, normal motor functions Neurologic/Psychiatric: alert, normal mood/affect Skin: normal color, warm/dry Progress/Results/Core Measures Results/Orders Lab Results Laboratory Tests Test 04/02/19 21:45 Range/Units White Blood Count 9.7 4.3-11.0 10^3/uL Red Blood Count 3.92 L 4.35-5.85 10^6/uL Hemoglobin 10.7 L 11.5-16.0 G/DL Hematocrit 35 35-52 % Mean Corpuscular Volume 88 80-99 FL Mean Corpuscular Hemoglobin 27 25-34 PG Mean Corpuscular Hemoglobin Concent 31 L 32-36 G/DL Red Cell Distribution Width 16.7 H 10.0-14.5 % Platelet Count 432 H 130-400 10^3/uL Mean Platelet Volume 8.7 7.4-10.4 FL Neutrophils (%) (Auto) 79 H 42-75 % Lymphocytes (%) (Auto) 16 12-44 % Monocytes (%) (Auto) 4 0-12 % Eosinophils (%) (Auto) 1 0-10 % Basophils (%) (Auto) 0 0-10 % Neutrophils # (Auto) 7.7 1.8-7.8 X 10^3 Lymphocytes # (Auto) 1.5 1.0-4.0 X 10^3 Monocytes # (Auto) 0.4 0.0-1.0 X 10^3 Eosinophils # (Auto) 0.1 0.0-0.3 10^3/uL Basophils # (Auto) 0.0 0.0-0.1 10^3/uL Prothrombin Time 12.0 L 12.2-14.7 SEC INR Comment 0.9 0.8-1.4 Activated Partial Thromboplast Time 29 24-35 SEC Sodium Level 139 135-145 MMOL/L Potassium Level 2.6 L 3.6-5.0 MMOL/L Chloride Level 102 98-107 MMOL/L Carbon Dioxide Level 26 21-32 MMOL/L Anion Gap 11 5-14 MMOL/L Blood Urea Nitrogen 6 L 7-18 MG/DL Creatinine 0.63 0.60-1.30 MG/DL Estimat Glomerular Filtration Rate > 60 BUN/Creatinine Ratio 10 Glucose Level 88 70-105 MG/DL Calcium Level 8.5 8.5-10.1 MG/DL Corrected Calcium 9.1 8.5-10.1 MG/DL Magnesium Level 1.8 1.6-2.4 MG/DL Total Bilirubin 0.1 0.1-1.0 MG/DL Aspartate Amino Transf (AST/SGOT) 25 5-34 U/L Alanine Aminotransferase (ALT/SGPT) 33 0-55 U/L Alkaline Phosphatase 161 H 40-136 U/L Myoglobin 44.6 10.0-92.0 NG/ML Troponin I < 0.028 <0.028 NG/ML B-Type Natriuretic Peptide 105.8 H <100.0 PG/ML Total Protein 6.7 6.4-8.2 GM/DL Albumin 3.3 3.2-4.5 GM/DL My Orders Orders - PRIMO GUNTER Cbc With Automated Diff (04/02/19 21:39) Magnesium (04/02/19 21:39) Ekg Tracing (04/02/19 21:39) Cardiac Profile 1 (04/02/19 21:39) Comprehensive Metabolic Panel (04/02/19 21:39) Myoglobin Serum (04/02/19 21:39) Protime With Inr (04/02/19 21:39) Partial Thromboplastin Time (04/02/19 21:39) O2 (04/02/19 21:39) Monitor-Rhythm Ecg Trace Only (04/02/19 21:39) Lipid Panel (04/03/19 06:00) Ed Iv/Invasive Line Start (04/02/19 21:39) BNP (04/02/19 21:39) Aspirin Chewable Tablet (Baby Aspirin Ch (04/02/19 21:45) Albuterol/Ipra Inhalation Soln (Duoneb I (04/02/19 21:45) Chest Pa/Lat (2 View) (04/02/19 21:39) Svn Small Volume Nebulizer (04/02/19 21:39) Medications Given in ED Current Medications Medications Dose Ordered Sig/Flora Route Start Time Stop Time Status Last Admin Dose Admin Albuterol/ Ipratropium 3 ml ONCE ONCE INH 04/02/19 21:45 04/02/19 21:46 DC 04/02/19 21:58 3 ML Aspirin 324 mg ONCE ONCE PO 04/02/19 21:45 04/02/19 21:46 DC 04/02/19 21:56 324 MG Vital Signs/I&O 04/02/19 04/02/19 04/02/19 21:24 21:24 21:58 Temp 36.7 Pulse 100 Resp 18 B/P (MAP) 134/81 (98) Pulse Ox 98 98 O2 Delivery Room Air Room Air Room Air Progress Progress Note #1: Time: 21:46 Progress Note Dalhart dependent edema due to protein malnutrition secondary to her history of stomach surgery versus less likely CHF? We'll obtain chest x-ray two-view and B [employer] as well as basic labs. Since she is planned one month of chest tightness and pain we'll obtain a single troponin to rule her out. Aspirin will be given. She denies any significant pain this time so we'll do a DuoNeb since we are hearing some slight wheezing and see if that helps. Progress Note #2: Time: 22:51 Progress Note Patient states she feels a little bit better after the breathing treatment but no change to breath sounds. Labs and chest x-ray unremarkable. Consistent with gravity dependent edema. Initial ECG Impression Date: Apr 02, 2019 Initial ECG Impression Time: 21:37 Initial ECG Rate: 85 Initial ECG Rhythm: Normal Sinus Initial ECG Intervals: Normal Initial ECG Impression: Normal, Nonspecific Changes Comment No ST elevation or depression. Diagnostic Imaging Diagonstic Imaging: Xray Plain Films/CT/US/NM/MRI: chest Comments No acute cardiopulmonary process noted. Reviewed: Reviewed by Me Departure Impression Primary Impression: Dependent edema Additional Impression: Hypokalemia due to excessive gastrointestinal loss of potassium Disposition: HOME, SELF-CARE Condition: Stable Departure-Patient Inst. Decision time for Depature: 22:51 [address]errals: [facility] [place] (PCP) Primary Care Physician SONNY ACOSTA (Family) Primary Care Physician EDYTA ZAIDI MD Patient Instructions: Dependent Edema (DC) Add. Discharge Instructions: Keep your feet elevated when at rest. Obtain compression stockings to help remove the fluid back up out of your legs. Keep follow-up appointment with primary care and Friday morning call Dr. Zaidi's office and request follow-up. Return to the ER if you begin to experience chest pain, shortness of breath or other worrisome symptoms. If you experience nausea use the Zofran 1 tablet every 6 hours under the tongue as necessary. Take the potassium supplements twice daily for the next week and have primary care recheck it after that. All discharge instructions reviewed with patient and/or family. Voiced understanding. Scripts Potassium Chloride (Potassium Chloride) 20 Meq Tab.er.prt 20 MEQ PO BID for 7 Days, #14 TAB 0 Refills Prov: PRIMO GUNTER 04/02/19 Ondansetron (Ondansetron Odt) 4 Mg Tab.rapdis 4 MG PO Q6H PRN for NAUSEA/VOMITING-1ST LINE, #10 TAB 0 Refills Prov: PRIMO GUNTER 04/02/19 PRIMO GUNTER Apr 02, 2019 21:46
[2019-04-02 21:57] LABS: BASOPHILS % (AUTO) 0 % (0-10); EOSINOPHILS # (AUTO) 0.1 10^3/uL (0.0-0.3); EOSINOPHILS % (AUTO) 1 % (0-10); HEMATOCRIT 35 % (35-52); HEMOGLOBIN 10.7 G/DL (11.5-16.0); LYMPHOCYTES # (AUTO) 1.5 X 10^3 (1.0-4.0); LYMPHOCYTES % (AUTO) 16 % (12-44); MEAN CORPUSCULAR HEMOGLOBIN 27 PG (25-34); MEAN CORPUSCULAR HGB CONC 31 G/DL (32-36); MEAN CORPUSCULAR VOLUME 88 FL (80-99); MEAN PLATELET VOLUME 8.7 FL (7.4-10.4); MONOCYTES # (AUTO) 0.4 X 10^3 (0.0-1.0); MONOCYTES % (AUTO) 4 % (0-12); NEUTROPHILS # (AUTO) 7.7 X 10^3 (1.8-7.8); NEUTROPHILS % (AUTO) 79 % (42-75); PLATELET COUNT 432 10^3/uL (130-400); RED CELL DISTRIBUTION WIDTH 16.7 % (10.0-14.5); WHITE BLOOD COUNT 9.7 10^3/uL (4.3-11.0)
[2019-04-02 22:07] LABS: INR 0.9 (0.8-1.4)
[2019-04-02 22:14] LABS: ALANINE AMINOTRANSFERASE 33 U/L (0-55); ALBUMIN 3.3 GM/DL (3.2-4.5); ALKALINE PHOSPHATASE 161 U/L (40-136); BILIRUBIN,TOTAL 0.1 MG/DL (0.1-1.0); BUN/CREATININE RATIO 10; CALCIUM 8.5 MG/DL (8.5-10.1); CARBON DIOXIDE 26 MMOL/L (21-32); CHLORIDE 102 MMOL/L (98-107); CREATININE SERUM 0.63 MG/DL (0.60-1.30); GFR ESTIMATED > 60; GLUCOSE 88 MG/DL (70-105); MAGNESIUM 1.8 MG/DL (1.6-2.4); POTASSIUM 2.6 MMOL/L (3.6-5.0); SODIUM 139 MMOL/L (135-145); TOTAL PROTEIN 6.7 GM/DL (6.4-8.2)
[2019-04-02] MEDS ORDERED: ONDA4TAB11 PO (22:55)
[2019-04-02] MEDS ORDERED: POTA20TA15 PO (22:55)
[2019-04-02 23:09] VITALS: BP 131/76
--- NOTE | 2019-04-03 05:57 | Diagnostic Imaging Report ---
CLINICAL INDICATION: Patient with shortness of air and chest pain upon exertion. EXAM: Chest x-ray PA and lateral views. COMPARISONS: Chest x-ray dated 08/05/2016. FINDINGS: Lungs/pleura: There is subtle amorphous airspace opacity in the left perihilar region. Otherwise, lungs are clear. There is no pneumothorax. There is no pleural effusion. Mediastinum: Unremarkable. Pulmonary vasculature: Unremarkable. Heart: Unremarkable. Bones/extrathoracic soft tissue: Again seen left curvature of the thoracolumbar spine. IMPRESSION: There is subtle airspace amorphous opacity in the left perihilar region which may represent lung infiltrate. Follow up chest x-ray in 2 - 4 weeks is suggested to evaluate for interval resolution of this finding. Dictated by: Dictated on workstation # [id number]
== END 2019-04-02 23:09 | disposition home or self-care (01) ==
LOC: EDUNIT# 21:11 → ER 21:13
DX: R60.0 Localized edema (principal); E87.6 Hypokalemia; F17.210 Nicotine dependence, cigarettes, uncomplicated; G43.909 Migraine, unspecified, not intractable, without status migrainosus; D64.9 Anemia, unspecified; Z90.49 Acquired absence of other specified parts of digestive tract; Z90.710 Acquired absence of both cervix and uterus; Z88.5 Allergy status to narcotic agent; Z88.2 Allergy status to sulfonamides; Z88.7 Allergy status to serum and vaccine; Z88.8 Allergy status to other drugs, medicaments and biological substances; Z80.0 Family history of malignant neoplasm of digestive organs; Z82.49 Family history of ischemic heart disease and other diseases of the circulatory system
CPT/HCPCS: 36415; 71046; 80053; 83735; 83874; 83880; 84484; 85025; 85610; 85730; 93005; 93041; 94640

== ENCOUNTER → 2019-04-22 | Outpatient (CLI) | payer BC ==
[~2019-04-22] MED LIST changes: +POTA20TA15 PO
== END ==
LOC: CARD 10:43
PROVIDERS: ATTEND Internal Medicine Cardiovascular Disease
DX: I08.0 Rheumatic disorders of both mitral and aortic valves (principal); R60.9 Edema, unspecified
CPT/HCPCS: 93306

== ENCOUNTER 2019-07-16 15:20 | Emergency (ER) | payer BC ==
[~2019-07-16] VITALS: Ht 152 cm; Wt 45.7 kg
[2019-07-16] MEDS ORDERED: NS IV 1000 ML 1,000 ML IV SCH (15:46)
--- NOTE | 2019-07-16 15:46 | ED Abdominal Pain ---
General Chief Complaint: Abdominal/GI Problems Stated Complaint: ABD PAIN Nursing Triage Note: ABD PAIN WITH N/V OFF AND ON SINCE LAST SAT. Sepsis Screen: No Definite Risk History of Present Illness Date Seen by Provider: Jul 16, 2019 Time Seen by Provider: 15:35 Initial Comments 53-year-old female presents with upper abdominal pain that been present since 07/10/19. She does report it improved on 07/12/19 and then got worse again on 07/14/19. She has a long-standing history of GI problems and has had multiple surgeries on her stomach. She is supposed to be taking Zofran, Reglan and Protonix but has not taken it in several days because of the nausea and vomiting. She reports during the day Take at 0800 this morning and vomiting after. She only had the one episode of vomiting today and denies any diarrhea. She has been trying sips of fluids but not tolerating due to the nausea. Timing/Duration: 6-7 Days Severity/Quality: Mild Location: RUQ Radiation: No Radiation Associated Symptoms: No Denies Symptoms, No Back Pain, No Chest Pain, No Diaphoresis, No Fever/Chills, No Fatigue, No Headache; Heartburn, Na usea/Vomiting; No Rash, No Shortness of Air, No Swelling/Mass in Abdomen, No Syncope, No Weakness, No Other Allergies and Home Medications Allergies Coded Allergies: morphine (Verified Allergy, Severe, ITCHING & FLUSHING, PT HAS RECEIVED HYDROCODONE IN THE PAST, 08/31/17) Influenza Virus Vaccines (Unverified Allergy, Unknown, 08/31/17) metronidazole (Verified Allergy, Unknown, 08/31/17) Sulfa (Sulfonamide Antibiotics) (Verified Adverse Reaction, Unknown, 08/31/17) Home Medications Calcium Carbonate/Vitamin D3 1 Each Tablet, 1 TAB PO BID, (Reported) Ciprofloxacin HCl 500 Mg Tablet, 500 MG PO BID Prescribed by: BRIANNA RODRIGUEZ on 07/16/19 1713 Cyanocobalamin (Vitamin B-12) 2,500 Mcg Tablet, 2,500 MCG PO DAILY, (Reported) Dicyclomine HCl 20 Mg Tablet, 20 MG PO QID PRN for HEARTBURN, (Reported) Estrogen,Sylvie/Me-Testosterone 1 Each Tablet, 2 TAB PO DAILY, (Reported) Gabapentin 300 Mg Capsule, 600 MG PO TID, (Reported) TAKES 2 (300 MG) CAPSULES Ondansetron 4 Mg Tab.rapdis, 4 MG PO Q6H PRN for NAUSEA/VOMITING-1ST LINE Prescribed by: PRIMO GUNTER on 04/02/192254 Ondansetron HCl 4 Mg Tab, 4 MG PO Q4H PRN for NAUSEA/VOMITING-1ST LINE Prescribed by: SASHA PEREZ on 08/14/18 1304 Pantoprazole Sodium 40 Mg Tablet.dr, 40 MG PO BID, (Reported) Polyethylene Glycol 3350 17 Gm Powd.pack, 17 GM PO BID PRN PRN for CONSTIPATION- 1ST LINE Prescribed by: PRIMO GUNTER on 02/06/192112 Potassium Chloride 20 Meq Tab.er.prt, 20 MEQ PO BID Prescribed by: PRIMO GUNTER on 04/02/192254 Potassium Chloride 10 Meq Tablet.er, 10 MEQ PO DAILY Prescribed by: BRIANNA RODRIGUEZ on 07/16/191712 Sucralfate 1 Gm/10 Ml Oral.susp, 1 GM PO QID 30 minutes before meals and at bedtime. Crush and slurry if tablet is substituted. Prescribed by: YONIS BRADLEY on 07/16/18 185 Sucralfate 1 Gm Tablet, 1 GM PO QID Prescribed by: PRIMO GUNTER on 02/06/192112 Patient Home Medication List Home Medication List Reviewed: Yes Review of Systems Review of Systems Constitutional: no symptoms reported, see HPI Cardiovascular: See HPI; Denies Chest Pain Gastrointestinal: See HPI; Denies Abdomen Distended; Abdominal Pain; Denies Blood Streaked Stools, Denies Constipated, Denies Diarrhea; Nausea, Poor Appetite, Poor Fluid Intake, Vomiting All Other Systems Reviewed Negative Unless Noted: Yes Past Hmrlshy-Wqzpzv-Wgsodd Hx Past Med/Social Hx: Reviewed Nursing Past Med/Soc Hx Patient Social History Alcohol Use: Denies Use Recreational Drug Use: No Smoking Status: Former Smoker Type Used: Cigarettes 2nd Hand Smoke Exposure: No Recent Foreign Travel: No Contact w/Someone Who Travel: No Recent Infectious Disease Expo: No Recent Hopitalizations: No Immunizations Up To Date Tetanus Booster (TDap): More than 5yrs Seasonal Allergies Seasonal Allergies: Yes Past Medical History Surgeries: Yes (partial gastrectomy) Abdominal, Appendectomy, Hysterectomy Respiratory: No Cardiac: No Neurological: Yes Headaches /Migraines 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: Yes 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, 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 Sexually Transmitted Disease: No HIV/AIDS: No Genitourinary: No Gastrointestinal: Yes Gastrointestinal Bleed, Obstructive Bowel, Ulcer Musculoskeletal: Yes Scoliosis Endocrine: Yes (hypoglycemia) HEENT: No Loss of Vision: Denies Hearing Impairment: Denies Cancer: No Psychosocial: No Integumentary: No Blood Disorders: Yes (anemia) Adverse Reaction/Blood Tranf: No Family Medical History Cancer of colon GRANDMOTHER Family history: Diabetes mellitus 19 FATHER Family history: Hypertension 19 MOTHER Stroke 19 MOTHER No Pertinent Family Hx Physical Exam Vital Signs Vital Signs - First Documented 07/16/19 07/16/19 15:25 17:42 Temp 36.8 Pulse 88 Resp 16 B/P (MAP) 110/77 (88) Pulse Ox 98 O2 Delivery Room Air Capillary Refill : Less Than 3 Seconds Height/Weight/BMI Height: 5'0" Weight: 106lbs. 0.0oz. 48.410507ct; 19.00 BMI Method:Stated General Appearance: WD/WN, no apparent distress, other (Moves in bed comfortable from sitting to lying, with no complaints of pain) HEENT: PERRL/EOMI, normal ENT inspection, TMs normal, pharynx normal, other (oral mucosa pink and moist) Neck: non-tender, full range of motion, supple, normal inspection Respiratory: chest non-tender, lungs clear, normal breath sounds Cardiovascular: normal peripheral pulses, regular rate, rhythm, no murmur Gastrointestinal: normal bowel sounds, soft, no pulsatile mass; No distended, No guarding, No rebound; tenderness (RUQ, Neg Knox sign. ); No hernia, No mass, No hepatomegaly, No spleenomegaly; other (Multiple well healed incision to abdomen, no warmth, erythema or drainage. ) Extremities: normal range of motion, non-tender, normal inspection, no pedal edema, no calf tenderness Neurologic/Psychiatric: no motor/sensory deficits, alert, normal mood/affect, oriented x 3 Skin: normal color, warm/dry Progress/Results/Core Measures Results/Orders Lab Results Laboratory Tests Test 07/16/19 15:30 07/16/19 15:40 Range/Units Urine Color YELLOW Urine Clarity CLOUDY Urine pH 5.0 5-9 Urine Specific [place] 1.020 1.016-1.022 Urine Protein 2+ H NEGATIVE Urine Glucose (UA) NEGATIVE NEGATIVE Urine Ketones NEGATIVE NEGATIVE Urine Nitrite NEGATIVE NEGATIVE Urine Bilirubin 1+ H NEGATIVE Urine Urobilinogen 1.0 < = 1.0 MG/DL Urine Leukocyte Esterase NEGATIVE NEGATIVE Urine RBC (Auto) 2+ H NEGATIVE Urine RBC 2-5 H /HPF Urine WBC 10-25 H /HPF Urine Squamous Epithelial Cells 5-10 /HPF Urine Crystals NONE /LPF Urine Bacteria LARGE H /HPF Urine Casts NONE /LPF Urine Mucus NEGATIVE /LPF Urine Culture Indicated YES White Blood Count 6.2 4.3-11.0 10^3/uL Red Blood Count 4.06 L 4.35-5.85 10^6/uL Hemoglobin 10.0 L 11.5-16.0 G/DL Hematocrit 34 L 35-52 % Mean Corpuscular Volume 84 80-99 FL Mean Corpuscular Hemoglobin 25 25-34 PG Mean Corpuscular Hemoglobin Concent 30 L 32-36 G/DL Red Cell Distribution Width 19.3 H 10.0-14.5 % Platelet Count 357 130-400 10^3/uL Mean Platelet Volume 8.9 7.4-10.4 FL Neutrophils (%) (Auto) 79 H 42-75 % Lymphocytes (%) (Auto) 14 12-44 % Monocytes (%) (Auto) 7 0-12 % Eosinophils (%) (Auto) 0 0-10 % Basophils (%) (Auto) 0 0-10 % Neutrophils # (Auto) 4.9 1.8-7.8 X 10^3 Lymphocytes # (Auto) 0.9 L 1.0-4.0 X 10^3 Monocytes # (Auto) 0.4 0.0-1.0 X 10^3 Eosinophils # (Auto) 0.0 0.0-0.3 10^3/uL Basophils # (Auto) 0.0 0.0-0.1 10^3/uL Sodium Level 138 135-145 MMOL/L Potassium Level 2.3 *L 3.6-5.0 MMOL/L Chloride Level 100 98-107 MMOL/L Carbon Dioxide Level 29 21-32 MMOL/L Anion Gap 9 5-14 MMOL/L Blood Urea Nitrogen 5 L 7-18 MG/DL Creatinine 0.58 L 0.60-1.30 MG/DL Estimat Glomerular Filtration Rate > 60 BUN/Creatinine Ratio 9 Glucose Level 95 70-105 MG/DL Calcium Level 7.8 L 8.5-10.1 MG/DL Corrected Calcium 8.7 8.5-10.1 MG/DL Total Bilirubin 0.1 0.1-1.0 MG/DL Aspartate Amino Transf (AST/SGOT) 13 5-34 U/L Alanine Aminotransferase (ALT/SGPT) 9 0-55 U/L Alkaline Phosphatase 121 40-136 U/L Total Protein 6.1 L 6.4-8.2 GM/DL Albumin 2.9 L 3.2-4.5 GM/DL Amylase Level 62 25-125 U/L Lipase 43 8-78 U/L My Orders Orders - MICHAEL,BRIANNA TOE STAPLER Amylase (07/16/19 15:29) Cbc With Automated Diff (07/16/19 15:29) Comprehensive Metabolic Panel (07/16/19 15:29) Lipase (07/16/19 15:29) Ua Culture If Indicated (07/16/19 15:29) Ed Iv/Invasive Line Start (07/16/19 15:46) Ns Iv 1000 Ml (Sodium Chloride 0.9%) (07/16/19 15:46) Ondansetron Injection (Zofran Injectio (07/16/19 16:00) Pantoprazole Injection (Protonix Injecti (07/16/19 16:00) Urine Culture (07/16/19 15:30) Potassium Cl 10meq/50ml Ivpb (Kcl 10 Meq (07/16/19 16:25) Ed Iv/Invasive Line Start (07/16/19 16:35) Ns Iv 500 Ml (Sodium Chloride 0.9%) (07/16/19 16:35) Medications Given in ED Current Medications Medications Dose Ordered Sig/Flora Route Start Time Stop Time Status Last Admin Dose Admin Ondansetron HCl 4 mg ONCE ONCE IVP 07/16/19 16:00 07/16/19 16:01 DC 07/16/19 15:55 4 MG Pantoprazole 40 mg ONCE ONCE IV 07/16/19 16:00 07/16/19 16:01 DC 07/16/19 15:56 40 MG Sodium Chloride 500 ml @ 0 mls/hr Q0M ONCE IV 07/16/19 16:35 07/16/19 16:36 DC 07/16/19 16:45 500 MLS/HR Vital Signs/I&O 07/16/19 07/16/19 15:25 17:42 Temp 36.8 36.8 Pulse 88 80 Resp 16 16 B/P (MAP) 110/77 (88) 145/77 (88) Pulse Ox 98 100 O2 Delivery Room Air Blood Pressure Mean: 88 Progress Progress Note : Time: 15:35 Progress Note Patient seen and evaluated, will get labs, normal saline 1 L, Zofran and Protonix IV. Discussed with the patient that we will wait to see if the imaging study is indicated based on her labs, since she is afebrile and normotensive. 1615 Labs essentially normal, white blood cell count normal, patient is hypokalemic, will give 20 mEq of potassium IV. Patient reports her nausea has improved. 1645 urine does show UTI present. The patient reports having one approximately 2 months ago. She took Macrodantin for this and had no further symptoms. 1710 discharge instructions and return precautions. Patient had no vomiting throughout this emergency department visit. All questions answered. Departure Impression Primary Impression: Nausea and vomiting Qualified Codes: R11.14 - Bilious vomiting Additional Impressions: Abdominal pain Qualified Codes: R10.11 - Right upper quadrant pain Hypokalemia UTI (urinary tract infection) Qualified Codes: N30.01 - Acute cystitis with hematuria Disposition: HOME, SELF-CARE Condition: Improved Departure-Patient Inst. Decision time for Depature: 17:10 Referrals: [facility] (PCP) Primary Care Physician SONNY PARRISH (Family) Primary Care Physician Patient Instructions: Acute Abdomen (Belly Pain), Adult (DC), Urinary Tract Infection, Adult (DC) Add. Discharge Instructions: Clear liquid diet for the next 6-8 hours then bland diet as tolerated. Avoid any fried, spicy or dairy products for the next 48 hours. Resume your home medications. Take antibiotics for urinary tract infection. Follow-up with your primary care provider next week to reassess her potassium level, sooner if symptoms are not improving. Return to the emergency department for new, urgent health care problems. All discharge instructions reviewed with patient and/or family. Voiced understanding. Scripts Potassium Chloride (K-Tab ER) 10 Meq Tablet.er 10 MEQ PO DAILY, #10 TAB 0 Refills Prov: BRIANNA RODRIGUEZ 1/10/20 Ciprofloxacin HCl (Ciprofloxacin HCl) 500 Mg Tablet 500 MG PO BID, #14 TAB 0 Refills Prov: BRIANNA RODRIGUEZ 07/16/19 BRIANNA RODRIGUEZ Jul 16, 2019 15:45
[2019-07-16 15:53] LABS: BASOPHILS % (AUTO) 0 % (0-10); EOSINOPHILS % (AUTO) 0 % (0-10); HEMATOCRIT 34 % (35-52); LYMPHOCYTES # (AUTO) 0.9 X 10^3 (1.0-4.0); LYMPHOCYTES % (AUTO) 14 % (12-44); MEAN CORPUSCULAR HEMOGLOBIN 25 PG (25-34); MEAN CORPUSCULAR HGB CONC 30 G/DL (32-36); MEAN CORPUSCULAR VOLUME 84 FL (80-99); MEAN PLATELET VOLUME 8.9 FL (7.4-10.4); MONOCYTES # (AUTO) 0.4 X 10^3 (0.0-1.0); MONOCYTES % (AUTO) 7 % (0-12); NEUTROPHILS # (AUTO) 4.9 X 10^3 (1.8-7.8); NEUTROPHILS % (AUTO) 79 % (42-75); PLATELET COUNT 357 10^3/uL (130-400); RED CELL DISTRIBUTION WIDTH 19.3 % (10.0-14.5); WHITE BLOOD COUNT 6.2 10^3/uL (4.3-11.0)
[2019-07-16] MEDS ORDERED: ONDANSETRON 4 MG/2 ML (SDV) Z0FRAN IVP ONE (16:00)
[2019-07-16] MEDS ORDERED: PANTOPRAZOLE 40 MG (PROTONIX) VIAL IV ONE (16:00)
[2019-07-16 16:05] LABS: BACTERIA,URINE LARGE /HPF; CLARITY,URINE CLOUDY; COLOR,URINE YELLOW; GLUCOSE, URINE (UA) NEGATIVE (NEGATIVE); KETONES,URINE NEGATIVE (NEGATIVE); LEUKOCYTE ESTERASE ,URINE NEGATIVE (NEGATIVE); NITRITE,URINE NEGATIVE (NEGATIVE); PROTEIN,URINE 2+ (NEGATIVE)
[2019-07-16 16:06] LABS: BILIRUBIN,URINE 1+ (NEGATIVE)
[2019-07-16 16:13] LABS: ALANINE AMINOTRANSFERASE 9 U/L (0-55); ALBUMIN 2.9 GM/DL (3.2-4.5); ALKALINE PHOSPHATASE 121 U/L (40-136); AMYLASE 62 U/L (25-125); BILIRUBIN,TOTAL 0.1 MG/DL (0.1-1.0); BUN/CREATININE RATIO 9; CALCIUM 7.8 MG/DL (8.5-10.1); CARBON DIOXIDE 29 MMOL/L (21-32); CHLORIDE 100 MMOL/L (98-107); CREATININE SERUM 0.58 MG/DL (0.60-1.30); GFR ESTIMATED > 60; GLUCOSE 95 MG/DL (70-105); LIPASE 43 U/L (8-78); SODIUM 138 MMOL/L (135-145); TOTAL PROTEIN 6.1 GM/DL (6.4-8.2)
[2019-07-16 16:15] LABS: POTASSIUM 2.3 MMOL/L (3.6-5.0)
[2019-07-16] MEDS ORDERED: POTASSIUM CL 10MEQ/50ML IVPB 50 ML IV STA (16:25)
[2019-07-16] MEDS ORDERED: NS IV 500 ML 500 ML IV ONE (16:35)
[2019-07-16] MEDS ORDERED: meTOprolol 5 MG/5 ML (LOPRESSOR) VIAL IV ONE (16:45)
[2019-07-16] MEDS ORDERED: POTA10TA PO (17:13)
[2019-07-16] MEDS ORDERED: CIPR500T4 PO (17:13)
[2019-07-16 17:42] VITALS: BP 145/77
== END 2019-07-16 17:42 | disposition home or self-care (01) ==
LOC: EDUNIT# 15:20 → ER 15:21
DX: N39.0 Urinary tract infection, site not specified (principal); E87.6 Hypokalemia; R10.11 Right upper quadrant pain; G43.909 Migraine, unspecified, not intractable, without status migrainosus; D64.9 Anemia, unspecified; Z88.5 Allergy status to narcotic agent; Z88.7 Allergy status to serum and vaccine; Z88.2 Allergy status to sulfonamides; Z88.8 Allergy status to other drugs, medicaments and biological substances; Z87.891 Personal history of nicotine dependence; Z90.49 Acquired absence of other specified parts of digestive tract; Z90.710 Acquired absence of both cervix and uterus; Z82.49 Family history of ischemic heart disease and other diseases of the circulatory system; Z80.0 Family history of malignant neoplasm of digestive organs
CPT/HCPCS: 36415; 80053; 81000; 82150; 83690; 85025; 87088; 87186; 96361; 96374; 96375

== ENCOUNTER → 2020-02-21 | Outpatient (CLI) | payer OTHER ==
[~2020-02-21] MED LIST changes: +ACET325C7 PO; +ACHYD1T PO; +ASPI-789 PO; +CETI10TA17 PO; +CETI10TA21 PO; +CYAN500T44 PO; +DOXY100T2 PO; +FLUC200T5 PO; +GBPN600T PO; +NORG1TAB75 PO; +PANT40TA2 PO; +POTA10TA PO; +PROM25TA14 PO
== END ==
LOC: CARD 10:24
PROVIDERS: ATTEND Internal Medicine Cardiovascular Disease
DX: I35.1 Nonrheumatic aortic (valve) insufficiency (principal); R60.9 Edema, unspecified
CPT/HCPCS: 93306

== ENCOUNTER → 2020-02-28 | Outpatient (CLI) | payer OTHER ==
[~2020-02-28] VITALS: Ht 152 cm; Wt 50.0 kg
[~2020-02-28] MED LIST changes: +REGADENOSON 0.4 MG/5 ML SYR (LEXISCAN) IV ONE
[2020-02-28] MEDS: CATHETER FLUSH 10 ML SYR IV PRN ×2 (08:02→09:11)
[2020-02-28 09:10] VITALS: BP 124/73
--- NOTE | 2020-02-28 12:15 | Cardiology Stress Test Report ---
Stress Test Report Date of Procedure/Referring: Date of Procedure: Feb 28, 2020 PCP Edyta Zaidi MD Admitting Physician Center/[facility] Indications: Chest pain Baseline Heart Rate: 74 Baseline Blood Pressure: Blood Pressure Systolic: 124 Blood Pressure Diastolic: 73 Baseline Vitals Vital Signs Date Time Temp Pulse Resp B/P (MAP) Pulse Ox O2 Delivery O2 Flow Rate FiO2 02/28/20 09:10 80 16 124/73 (90) 98 Room Air Baseline EKG: Baseline EKG: normal sinus rhythm Summary After explaining the procedure to the patient, she signed a consent and then brought to the stress nuclear laboratory. Patient received 0.4 mg Lexiscan for stress test, ECG, heart rate and blood pressure were monitored continuously. Resting and stress dose of radio tracer were injected, imaging was acquired and reviewed in short axis, horizontal long axis and vertical long axis views. TID: 0.94 SSS: 7 SDS: 7 EF: 41 1. Patient tolerated Lexiscan well 2. Breast attenuation with decreased uptake involving the anterior wall with mild reversibility 3. Normal left ventricular size with hypokinesia involving the base of the anterior wall anterior septum and inferior wall, EF 41 percent EDYTA ZAIDI MD Feb 28, 2020 12:15
== END ==
LOC: CARD 07:30
PROVIDERS: ATTEND Internal Medicine Cardiovascular Disease
DX: I35.1 Nonrheumatic aortic (valve) insufficiency (principal); I51.89 Other ill-defined heart diseases; N64.89 Other specified disorders of breast; R60.9 Edema, unspecified
CPT/HCPCS: 78452; 93017; A9502

== ENCOUNTER 2020-03-06 08:46 | Emergency (ER) | payer OTHER ==
[~2020-03-06] VITALS: Ht 152.4 cm; Wt 50.9 kg
[~2020-03-06 08:46] MED LIST changes: -REGADENOSON 0.4 MG/5 ML SYR (LEXISCAN) IV ONE
--- NOTE | 2020-03-06 10:00 | ED Integumentary General ---
General Chief Complaint: Skin/Wound Problems Stated Complaint: LEFR ARM WOUND Nursing Triage Note: Pt ambulates to triage with c/o wound to L lateral forearm. Pt reports approx x1wk ago she felt a "bite" after laying arm on the side of her truck window. Pt reports approx x3days ago wound began to expell "green" drainage. Pt reports dizziness. Pt denies fever or chills. Pt reports she is currently being treated for Staph infection (doxycycline 100mg BID) to L hand. Pt states, "I forget to take my antibiotics sometimes." A&OX4. Source: patient Exam Limitations: no limitations ([facility] History of Present Illness Date Seen by Provider: Mar 06, 2020 Time Seen by Provider: 09:17 Initial Comments This is a 54 y/o F who presents to the ED with possible spider bite to the L arm, extensor surface near elbow. Reports, 1 wk ago, she felt a "bite" after laying her L arm on side of her truck window. States it started out looking like a "pimple", then "popped" ~ 3 days ago, draining some fluid. Pt has seen Tl Acosta for this and was prescribed 100mg Doxycycline BID. Reports she has started to take them but has missed a few doses. Also reports some N and dizziness since starting the ABX. Has taken Hydrocodone 10-325 (1 tab) at 5 AM to day for pain. No further complaints at this time. Timing/Duration: week (1) Severity: mild Location: extremities (L Upper ) Possible Cause: insect bite (spider) Modifying Factors: worse with other (pressure, palpation) Associated Symptoms: blisters, change in skin texture, swelling/mass/lumps ([facility] Allergies and Home Medications Allergies Coded Allergies: morphine (Verified Allergy, Severe, ITCHING & FLUSHING, PT HAS RECEIVED HYDROCODONE IN THE PAST, 08/31/17) Influenza Virus Vaccines (Unverified Allergy, Unknown, 08/31/17) metronidazole (Verified Allergy, Unknown, 08/31/17) Sulfa (Sulfonamide Antibiotics) (Verified Adverse Reaction, Unknown, 08/31/17) Home Medications Acetaminophen 325 Mg Capsule, 650 MG PO Q8H PRN for PAIN-MILD (1-4), (Reported) Aspirin/Acetaminophen/Caffeine 1 Each Tablet, 2 EACH PO Q6-8HR PRN for Headache, (Reported) Cetirizine HCl 10 Mg Tablet, 10 MG PO DAILY PRN for ALLERGY SYMPTOMS, (Reported) Cyanocobalamin (Vitamin B-12) 500 Mcg Tablet, 500 MCG PO DAILY, (Reported) Dicyclomine HCl 20 Mg Tablet, 20 MG PO QID, (Reported) Doxycycline Hyclate 100 Mg Tablet, 100 MG PO BID Prescribed by: MARIANNA MYERS on 12/01/19 1138 Famotidine 20 Mg Tablet, 20 MG PO HS PRN for HEARTBURN, (Reported) Fluconazole 200 Mg Tablet, 200 MG PO FRIDAY, (Reported) Gabapentin 600 Mg Tablet, 600 MG PO TID, (Reported) Hydrocodone/Acetaminophen 1 Each Tablet, 1 EACH PO TID PRN for PAIN-MILD (1-4), (Reported) Ondansetron 4 Mg Tab.rapdis, 4 MG PO Q4H Prescribed by: LIZ LIRIANO on 02/15/202018 Pantoprazole Sodium 40 Mg Tablet.dr, 40 MG PO BID, (Reported) Polyethylene Glycol 3350 17 Gm Powd.pack, 17 GM PO BID PRN PRN for CONSTIPATION- 1ST LINE Prescribed by: PRIMO GUNTER on 02/06/192112 Promethazine HCl 25 Mg Tablet, 25 MG PO Q6H PRN for NAUSEA/VOMITING, (Reported) Patient Home Medication List Home Medication List Reviewed: Yes (RAN MERRITT APRN) Review of Systems Review of Systems Constitutional: No chills; dizziness; No fever EENTM: no symptoms reported Respiratory: No cough, No dyspnea on exertion, No short of breath Cardiovascular: No chest pain, No edema Gastrointestinal: nausea; No vomiting Genitourinary: no symptoms reported Musculoskeletal: other (Arm pain) Skin: lesions ("Insect bite"); No lumps Psychiatric/Neurological: No Symptoms Reported ([facility]) Past Gwzdqlu-Yvscdz-Fwjgst Hx Patient Social History Alcohol Use: Denies Use Recreational Drug Use: No Type Used: Cigarettes Former Smoker, Quit: Apr 24, 2016 2nd Hand Smoke Exposure: No Recent Foreign Travel: No Contact w/Someone Who Travel: No Recent Infectious Disease Expo: No Recent Hopitalizations: No (NOVEMBER OF 2019 LOW POTASSIUM) ([facility]) Immunizations Up To Date Tetanus Booster (TDap): More than 5yrs PED Vaccines UTD: Yes ([facility] Seasonal Allergies Seasonal Allergies: Yes ([facility] Past Medical History Surgeries: Yes (partial gastrectomy) Abdominal, Appendectomy, Hysterectomy Respiratory: No Cardiac: Yes Valvular Heart Disease Neurological: Yes Headaches /Migraines 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: Yes 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, 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 Sexually Transmitted Disease: No HIV/AIDS: No Genitourinary: No Gastrointestinal: Yes Gastrointestinal Bleed, Obstructive Bowel, Ulcer Musculoskeletal: Yes Scoliosis Endocrine: Yes (hypoglycemia) HEENT: No Loss of Vision: Denies Hearing Impairment: Denies Cancer: No Psychosocial: No Integumentary: No Blood Disorders: Yes (anemia) Adverse Reaction/Blood Tranf: No ([facility]) Family Medical History Cancer of colon GRANDMOTHER Family history: Diabetes mellitus 19 FATHER Family history: Hypertension 19 MOTHER Stroke 19 MOTHER Physical Exam Vital Signs Vital Signs - First Documented 03/06/20 08:55 Temp 37.0 Pulse 89 Resp 18 B/P (MAP) 147/72 (97) Pulse Ox 100 O2 Delivery Room Air (RAN MERRITT APRN) Vital Signs Capillary Refill : Less Than 3 Seconds ([facility] General Appearance: WD/WN, no apparent distress HEENT: PERRL/EOMI, normal ENT inspection Neck: non-tender, full range of motion Cardiovascular: normal peripheral pulses, regular rate, rhythm, no murmur Respiratory: chest non-tender, lungs clear, no respiratory distress Extremities: normal range of motion, non-tender, other (round, 1.5 cm in diameter lesion bellow elbow, extensor side with erythema and necrotic tissue surrounding a small, round, deeper lesion) Neurologic/Psychiatric: alert, oriented x 3 Skin: normal color, warm/dry ([facility]) Progress/Results/Core Measures Results/Orders Vital Signs/I&O 03/06/20 08:55 Temp 37.0 Pulse 89 Resp 18 B/P (MAP) 147/72 (97) Pulse Ox 100 O2 Delivery Room Air (RAN MERRITT APRN) Blood Pressure Mean: 97 Progress Progress Note : Time: 09:17 Progress Note Seen and evaluated. Lesions appears to be a brown Recluse spider bite. Pt is on Doxycycline. No further intervention is indicated at this time. Plan to d/c home. ([facility]) Departure Communication (Admissions) 1018-I have seen the patient and agree with plan of care. She has an ulcerated area to the dorsal proximal forearm on the left. Only about 1 cm of surrounding induration/erythema. No significant cellulitis. She started on doxycycline. This just appears to be an abscess that is ruptured. We will continue the current plan doxycycline and bandage changes, discharged home. (RAN MERRITT APRN) Impression Primary Impression: Wound infection Disposition: 01 HOME, SELF-CARE Condition: Stable Departure-Patient Inst. Decision time for Depature: 10:19 (RAN MERRITT APRN) Referrals: [facility] Primary Care Physician SONNY ACOSTA (Family) Primary Care Physician Patient Instructions: Wound Care (DC) Add. Discharge Instructions: Continue with current antibiotic treatment. Wash gently with soap and water twice a day. Keep covered with a Band-Aid. Follow-up with your doctor this week for recheck. All discharge instructions reviewed with patient and/or family. Voiced understanding. [facility] Mar 06, 2020 10:00 RAN MERRITT APRN Mar 06, 2020 10:20
[2020-03-06 10:35] VITALS: BP 154/85
== END 2020-03-06 10:35 | disposition home or self-care (01) ==
LOC: ER 08:46 → EDUNIT# 08:46 → ER 10:35
DX: T81.49XA Infection following a procedure, other surgical site, initial encounter (principal); Z88.2 Allergy status to sulfonamides; Z88.5 Allergy status to narcotic agent; Z88.8 Allergy status to other drugs, medicaments and biological substances; Z79.82 Long term (current) use of aspirin; Z87.891 Personal history of nicotine dependence; Z82.49 Family history of ischemic heart disease and other diseases of the circulatory system; Z80.0 Family history of malignant neoplasm of digestive organs
CPT/HCPCS: 99282

== ENCOUNTER 2020-03-08 07:51 | Day surgery (SDC) | payer OTHER ==
[~2020-03-08] VITALS: Ht 152 cm; Wt 51.0 kg
[2020-03-08] VITALS (11 sets, daily range): BP systolic 115–153; BP diastolic 57–83
[2020-03-08] MEDS ORDERED: NS IV 1000 ML 1,000 ML ONE (07:59)
[2020-03-08] MEDS ORDERED: HEParin (CATH LAB) 2,000 ML IV ONE (07:59)
[2020-03-08] MEDS ORDERED: LIDOCAINE 1% INJ 20 ML 20 ML VIAL ONE (07:59)
[2020-03-08] MEDS ORDERED: NS IV 1000 ML 1,000 ML IV SCH ×2 (08:00→10:46)
[2020-03-08 08:32] LABS: BILIRUBIN,URINE NEGATIVE (NEGATIVE); CLARITY,URINE CLEAR; COLOR,URINE YELLOW; GLUCOSE, URINE (UA) NEGATIVE (NEGATIVE); KETONES,URINE NEGATIVE (NEGATIVE); LEUKOCYTE ESTERASE ,URINE NEGATIVE (NEGATIVE); NITRITE,URINE NEGATIVE (NEGATIVE); PROTEIN,URINE NEGATIVE (NEGATIVE)
--- NOTE | 2020-03-08 08:34 | Diagnostic Imaging Report ---
INDICATION: Heart disease. Comparison made with prior examination 02/15/2020. FINDINGS: The heart size, mediastinal configuration, and pulmonary vascularity are within normal limits. There is no pleural effusion, pneumothorax, or pneumonia. The osseous structures are unremarkable. IMPRESSION: No acute cardiopulmonary abnormality. Dictated by: Dictated on workstation # [id number]
[2020-03-08 08:35] LABS: HEMOGLOBIN 9.3 G/DL (11.5-16.0); MEAN PLATELET VOLUME 9.6 FL (7.4-10.4); RED CELL DISTRIBUTION WIDTH 26.2 % (10.0-14.5); WHITE BLOOD COUNT 5.8 10^3/uL (4.3-11.0)
[2020-03-08 08:38] LABS: BACTERIA,URINE NEGATIVE /HPF; WBC,URINE RARE /HPF
[2020-03-08 09:13] LABS: PROTHROMBIN TIME PATIENT 13.2 SEC (12.2-14.7)
[2020-03-08] MEDS ORDERED: LOSA25TA41 PO (09:16)
[2020-03-08] MEDS ORDERED: BUDE10.2 IH (09:16)
[2020-03-08] MEDS ORDERED: ASPI-992 PO (09:21)
[2020-03-08] MEDS ORDERED: SYNTEST.HS PO (09:21)
[2020-03-08 09:22] LABS: ALANINE AMINOTRANSFERASE 13 U/L (0-55); ALBUMIN 2.9 GM/DL (3.2-4.5); ALKALINE PHOSPHATASE 71 U/L (40-136); BILIRUBIN,TOTAL 0.2 MG/DL (0.1-1.0); BUN/CREATININE RATIO 5; CARBON DIOXIDE 27 MMOL/L (21-32); CHLORIDE 101 MMOL/L (98-107); CHOLESTEROL 109 MG/DL (< 200); CREATININE SERUM 0.55 MG/DL (0.60-1.30); GFR ESTIMATED > 60; GLUCOSE 106 MG/DL (70-105); HDL CHOLESTEROL 27 MG/DL (40-60); SODIUM 140 MMOL/L (135-145); TOTAL PROTEIN 5.5 GM/DL (6.4-8.2); TRIGLYCERIDES 114 MG/DL (<150); VLDL CHOLESTEROL 23 MG/DL (5-40)
[2020-03-08 09:38] LABS: POTASSIUM 2.3 MMOL/L (3.6-5.0)
[2020-03-08] MEDS ORDERED: MIDAZOLAM 5 MG/5 ML (VERSED) VIAL ONE (10:13)
[2020-03-08] MEDS ORDERED: fentaNYL INJECTION 100 MCG/2 ML AMP ONE (10:13)
[2020-03-08] MEDS ORDERED: NS W/KCL 40 MEQ/L 1,000 ML IV SCH (10:15)
--- NOTE | 2020-03-08 10:17 | NUR ---
I SPOKE WITH THE PATIENT AND CALLED [facility] TO COMPLETE THIS MED REC. LOSARTAN 25MG LAST FILLED 02/17/2020 #30 30DS DICYCLOMINE 20MG LAST FILLED 01/12/2020 #120 30DS SYMBICORT 160MCG-4.5MCG INH LAST FILLED 02/03/2020 30DS ESTRATEST 1.25-2.5 LAST FILLED 01/26/2020 #60 30DS PROMETHAZINE 25MG LAST FILLED 01/10/2020 #30 10DS PANTOPRAZOLE 40MG LAST FILLED 02/16/2020 #60 30DS GABAPENTIN 600MG LAST FILLED 02/24/2020 #90 30DS OTC: ASPIRIN VITAMIN B12
--- NOTE | 2020-03-08 10:26 | Cardiac Procedure Note-CS/ASA ---
Pre-Procedure Note Pre-Op Procedure Note H&P Reviewed The H&P was reviewed, patient examined and no changes noted. Date H&P Reviewed: Mar 08, 2020 Time H&P Reviewed: 10:26 Conscious Sedation Pre-Proced Time 10:26 ASA Score 3 For ASA 3 and 4: Consider anesthesia and medical clearance. Also, for patients with a history of failed moderate sedation consider anesthesia. Airway Lungs Heart ASA score ASA 1: a normal healthy patient ASA 2: a patient with a mild systemic disease (mid diabetes, controlled hypertension, obesity x ASA 3: a patient with a severe systemic disease that limits activity (angina, COPD, prior Myocardial infarction) ASA 4: a patient with an incapacitating disease that is a constant threat to life (CHF, renal failure) ASA 5: a moribund patient not expected to survive 24 hrs. (ruptured aneurysm) ASA 6: a declared brain- patient whose organs are being harvested. For emergent operations, add the letter E after the classification Mallampati Classification Grade 3 Sedation Plan Analgesia, Amnesia, Plan communicated to team members, Discussed options with patient/fam, Discussed risks with patient/fam The patient is an appropriate candidate to undergo the planned procedure, sedation, and anesthesia. The patient immediately re-assessed prior to indication. EDYTA HAMLIN MD Mar 08, 2020 10:26 am
--- NOTE | 2020-03-08 10:49 | Discharge Inst-Post CATH ---
Discharge Inst-CATH/EP Problems Reviewed?: Yes Post Cardiac Cath/EP D/C Inst Follow Up/Plan Appointment with Dr. Zaidi's office in 4 weeks <b>CARDIAC CATH/EP PROCEDURE DISCHARGE INSTRUCTIONS</b> ACTIVITY * Go Home directly and rest. * Limit activity of the leg (or wrist if it was used) for 7 days including aerobics, swimming, jogging, bicycling, etc. * Restrict stair-climbing for 7 days if possible, if not, climb up with your non-cath leg, then bring together on the same step. * Avoid lifting, pushing, pulling or excessive movement of the affected extremity for 7 days. * Customary sexual activity may be resumed after 2 days-use caution not to use a position that strains or causes pain to the affected extremity. * No driving for 24 hours. * NO SMOKING. * Avoid straining for bowel movements for 7 days. * Gentle walking on level ground is allowed. * Returning to work will depend on the type of procedure and the results. Your doctor will discuss this with you. CALL YOUR DOCTOR FOR ANY OF THE FOLLOWING: *If bleeding from the puncture site occurs- Apply gentle pressure to site with clean cloth and call your doctor or EMS. * If a knot or lump forms under the skin, increases in size, or causes pain. * If bruising appears to be worsening or moving further down your leg instead of disappearing. * Temperature above 101 F. CARE OF YOUR GROIN INCISION; * Bruising or purple discoloration of the skin near the puncture site is common. * You may shower only, no bathtub bathing for 5 days. Be careful to avoid slipping as your leg may feel stiff. * If a closure device was used on your femoral artery, please see the attached guide regarding care of the device and your leg. * Leave dressing on FOR 24 hours. CARE OF YOUR WRIST INCISION; * Bruising or purple discoloration of the skin near the puncture site is common. * You may shower. * DO NOT submerge wrist. * Leave dressing on FOR 24 hours. EDYTA ZAIDI MD Mar 08, 2020 10:49 am
--- NOTE | 2020-03-08 10:53 | Cardiac Cath Report ---
Cardiac Cath Report Physician (s)/Benzene Worker (s) Physician EDYTA HAMLIN MD Pre-Procedure Diagnosis Pre-Procedure Diagnosis: coronary artery disease Post-Procedure Note Procedure Start Date: Mar 08, 2020 Name of Procedure: Left heart catheterization Left ventriculogram Aortic root angiogram Findings/Procedure Note PROCEDURE NOTE: 54-year-old lady with history of [id number] aortic regurgitation, has been having increasing shortness of breath, had an abnormal stress test, scheduled for cardiac catheterization possible PTCA. After explaining the procedure to the patient, all pros and cons were explained, all questions were answered. The patient signed the consent and then she was placed on the cardiac catheterization laboratory. Groin was prepped SL fashion local anesthesia was used. Sheath placed in the right femoral artery. Greg right and left catheter were used to access the coronary system. Pigtail was used to access the left ventricular cavity. Left ventriculogram was done Aortic root angiogram was done At the end of the procedure the sheath was removed. Closure device was used FINDINGS: Hemodynamics LV 116/10, end-diastolic pressure of 10 Aorta 112/62 mean of 82 ANATOMY: Left Main is free of obstructive disease Left Anterior Descending has mild disease nonobstructive disease Left Circumflex has mild disease nonobstructive disease, dominant artery Right Coronory Artery has mild disease nonobstructive disease LV Gram was done showing normal left ventricular size, systolic function is normal, end-diastolic pressure is normal, EF 50 percent Aorta evaluation done with aortic root angiogram showing normal aortic root, no dissection or aneurysm, +1-2 aortic regurgitation noted CONCLUSION: 1. Mild coronary artery disease nonobstructive disease, dominant circumflex artery 2. Normal left ventricular systolic and diastolic function, EF 50 percent 3. Normal aortic root, +1-2 AR DISCUSSION AND RECOMMENDATION: Medical therapy is recommended no intervention is needed Anesthesia Type: Conscious Sedation Estimated blood loss (mL): 15 ml Contrast Amount: 45 ml Total Radiation Dose: 79 mGy Post-Procedure Diagnosis Post-operative diagnosis: Chest pain Dyspnea Coronary artery disease Hypertension EDYTA HAMLIN MD Mar 08, 2020 10:53
[2020-03-08] MEDS ORDERED: PATIENT MAY USE OWN MEDS, ALL PO SCH (11:00)
== END 2020-03-08 15:30 | disposition home or self-care (01) ==
LOC: CATH 07:51 → SDC 11:09 → CATH 15:30
PROVIDERS: ATTEND Internal Medicine Cardiovascular Disease
DX: I25.10 Atherosclerotic heart disease of native coronary artery without angina pectoris (principal); I10 Essential (primary) hypertension; I35.1 Nonrheumatic aortic (valve) insufficiency; E87.6 Hypokalemia; R60.9 Edema, unspecified; F17.210 Nicotine dependence, cigarettes, uncomplicated; Z79.899 Other long term (current) drug therapy; Z88.2 Allergy status to sulfonamides; Z88.7 Allergy status to serum and vaccine; Z88.5 Allergy status to narcotic agent; Z88.8 Allergy status to other drugs, medicaments and biological substances; Z90.710 Acquired absence of both cervix and uterus; Z87.11 Personal history of peptic ulcer disease; Z83.3 Family history of diabetes mellitus; Z80.0 Family history of malignant neoplasm of digestive organs; Z82.3 Family history of stroke
CPT/HCPCS: 71045; 80053; 80061; 81000; 85027; 85610; 85730; 87081; 93458; 93567; C1760; C1894; 36415

== ENCOUNTER 2020-03-17 14:22 | Outpatient (RCR) | payer OTHER ==
[2020-02-15 14:24] LABS: BASOPHILS % (AUTO) 0 % (0-10); EOSINOPHILS % (AUTO) 1 % (0-10); HEMATOCRIT 30 % (35-52); HEMOGLOBIN 8.4 G/DL (11.5-16.0); LYMPHOCYTES # (AUTO) 1.2 X 10^3 (1.0-4.0); LYMPHOCYTES % (AUTO) 24 % (12-44); MEAN CORPUSCULAR HEMOGLOBIN 22 PG (25-34); MEAN CORPUSCULAR HGB CONC 28 G/DL (32-36); MEAN CORPUSCULAR VOLUME 80 FL (80-99); MEAN PLATELET VOLUME 9.6 FL (7.4-10.4); MONOCYTES # (AUTO) 0.4 X 10^3 (0.0-1.0); MONOCYTES % (AUTO) 8 % (0-12); NEUTROPHILS # (AUTO) 3.2 X 10^3 (1.8-7.8); NEUTROPHILS % (AUTO) 67 % (42-75); PLATELET COUNT 276 10^3/uL (130-400); WHITE BLOOD COUNT 4.8 10^3/uL (4.3-11.0)
[2020-02-15 14:41] LABS: ALANINE AMINOTRANSFERASE 8 U/L (0-55); ALBUMIN 3.2 GM/DL (3.2-4.5); ALKALINE PHOSPHATASE 74 U/L (40-136); BILIRUBIN,TOTAL 0.2 MG/DL (0.1-1.0); BUN/CREATININE RATIO 7; CALCIUM 7.9 MG/DL (8.5-10.1); CARBON DIOXIDE 29 MMOL/L (21-32); CHLORIDE 107 MMOL/L (98-107); CREATININE SERUM 0.59 MG/DL (0.60-1.30); GFR ESTIMATED > 60; GLUCOSE 85 MG/DL (70-105); SODIUM 147 MMOL/L (135-145); TOTAL PROTEIN 6.3 GM/DL (6.4-8.2)
[2020-02-15 14:45] LABS: POTASSIUM 2.4 MMOL/L (3.6-5.0)
[~2020-03-17 14:22] MED LIST changes: +ASPI-992 PO; +BUDE10.2 IH; -CETI10TA21 PO; +CETI10TA49 PO; +FERRIC CARBOXYMALTOSE (CANCER) 750 MG in NS (IVPB) CANCER CENTER 250 ML IV SCH; +LOSA25TA41 PO; -PANT40TA3 PO; +PANT40TA52 PO; +SYNTEST.HS PO
[2020-03-17 14:33] LABS: BASOPHILS % (AUTO) 1 % (0-10); EOSINOPHILS # (AUTO) 0.1 10^3/uL (0.0-0.3); EOSINOPHILS % (AUTO) 1 % (0-10); HEMATOCRIT 37 % (35-52); HEMOGLOBIN 10.7 G/DL (11.5-16.0); LYMPHOCYTES # (AUTO) 1.5 X 10^3 (1.0-4.0); LYMPHOCYTES % (AUTO) 29 % (12-44); MEAN CORPUSCULAR HEMOGLOBIN 26 PG (25-34); MEAN CORPUSCULAR HGB CONC 29 G/DL (32-36); MEAN CORPUSCULAR VOLUME 91 FL (80-99); MEAN PLATELET VOLUME 9.2 FL (7.4-10.4); MONOCYTES # (AUTO) 0.4 X 10^3 (0.0-1.0); MONOCYTES % (AUTO) 7 % (0-12); NEUTROPHILS # (AUTO) 3.1 X 10^3 (1.8-7.8); NEUTROPHILS % (AUTO) 62 % (42-75); PLATELET COUNT 294 10^3/uL (130-400); WHITE BLOOD COUNT 5.1 10^3/uL (4.3-11.0)
[2020-03-17 14:55] LABS: ALANINE AMINOTRANSFERASE 9 U/L (0-55); ALKALINE PHOSPHATASE 79 U/L (40-136); BILIRUBIN,TOTAL 0.1 MG/DL (0.1-1.0); BUN/CREATININE RATIO 5; CARBON DIOXIDE 27 MMOL/L (21-32); CHLORIDE 109 MMOL/L (98-107); CREATININE SERUM 0.59 MG/DL (0.60-1.30); GFR ESTIMATED > 60; GLUCOSE 69 MG/DL (70-105); POTASSIUM 2.8 MMOL/L (3.6-5.0); SODIUM 143 MMOL/L (135-145)
== END 2020-03-31 08:18 | disposition home or self-care (01) ==
LOC: ONC 14:22
PROVIDERS: ATTEND Internal Medicine Hematology & Oncology
DX: D64.9 Anemia, unspecified (principal); R60.0 Localized edema; Z98.890 Other specified postprocedural states; Z90.49 Acquired absence of other specified parts of digestive tract; Z90.710 Acquired absence of both cervix and uterus
CPT/HCPCS: 80053; 82728; 83540; 85025; G0463; 96365; 99213; 99214

== ENCOUNTER 2020-04-14 09:52 | Outpatient (RCR) | payer OTHER ==
[~2020-04-14 09:52] MED LIST changes: -CALC-6 PO; +CALC1TAB84 PO; -CLIN300C11 PO; +CLIN300C12 PO; -FERRIC CARBOXYMALTOSE (CANCER) 750 MG in NS (IVPB) CANCER CENTER 250 ML IV SCH
[2020-04-14 10:07] LABS: BASOPHILS # (AUTO) 0.1 10^3/uL (0.0-0.1); BASOPHILS % (AUTO) 1 % (0-10); EOSINOPHILS # (AUTO) 0.1 10^3/uL (0.0-0.3); EOSINOPHILS % (AUTO) 2 % (0-10); HEMATOCRIT 46 % (35-52); HEMOGLOBIN 13.8 g/dL (11.5-16.0); LYMPHOCYTES # (AUTO) 1.3 10^3/uL (1.0-4.0); LYMPHOCYTES % (AUTO) 24 % (12-44); MEAN CORPUSCULAR HEMOGLOBIN 29 pg (25-34); MEAN CORPUSCULAR HGB CONC 30 g/dL (32-36); MEAN CORPUSCULAR VOLUME 96 fL (80-99); MEAN PLATELET VOLUME 9.2 fL (9.0-12.2); MONOCYTES # (AUTO) 0.4 10^3/uL (0.0-1.0); MONOCYTES % (AUTO) 8 % (0-12); NEUTROPHILS # (AUTO) 3.6 10^3/uL (1.8-7.8); NEUTROPHILS % (AUTO) 65 % (42-75); PLATELET COUNT 270 10^3/uL (130-400); WHITE BLOOD COUNT 5.5 10^3/uL (4.3-11.0)
[2020-04-14 10:27] LABS: ALANINE AMINOTRANSFERASE 15 U/L (0-55); ALBUMIN 3.1 GM/DL (3.2-4.5); ALKALINE PHOSPHATASE 110 U/L (40-136); BILIRUBIN,TOTAL 0.2 MG/DL (0.1-1.0); BUN/CREATININE RATIO 10; CALCIUM 7.5 MG/DL (8.5-10.1); CARBON DIOXIDE 24 MMOL/L (21-32); CHLORIDE 107 MMOL/L (98-107); CREATININE SERUM 0.58 MG/DL (0.60-1.30); GFR ESTIMATED > 60; GLUCOSE 71 MG/DL (70-105); POTASSIUM 3.4 MMOL/L (3.6-5.0); SODIUM 143 MMOL/L (135-145); TOTAL PROTEIN 6.2 GM/DL (6.4-8.2)
== END 2020-07-13 | disposition home or self-care (01) ==
LOC: ONC 09:52
PROVIDERS: ATTEND Internal Medicine Hematology & Oncology
DX: D64.9 Anemia, unspecified (principal); R60.0 Localized edema; Z98.890 Other specified postprocedural states; Z90.49 Acquired absence of other specified parts of digestive tract; Z90.710 Acquired absence of both cervix and uterus
CPT/HCPCS: 80053; 82728; 85025; G0463; 99213

== ENCOUNTER 2020-06-15 17:40 | Emergency (ER) | payer OTHER ==
[~2020-06-15] VITALS: Ht 152.4 cm; Wt 43.6 kg
--- NOTE | 2020-06-15 18:09 | ED Cardiac General ---
History of Present Illness General Chief Complaint: Cardiac/General Problems Stated Complaint: HEADACHE/HIGH BLOOD PRESSURE Source: patient Exam Limitations: no limitations History of Present Illness Date Seen by Provider: Jun 15, 2020 Time Seen by Provider: 18:09 Initial Comments 54-year-old female who presents to the emergency room with complaints of migraine headaches on and off and high blood pressure for the past week. She has been seen and evaluated by her PCP and recently started on propranolol for migraines and blood pressure. She reports that she has had systolic readings in the 180s at home. Current blood pressure is 150s over 90s in the emergency room. She denies shortness of breath, chest pain, lightheadedness, nausea or vomiting. Allergies and Home Medications Allergies Coded Allergies: morphine (Verified Allergy, Severe, ITCHING & FLUSHING, PT HAS RECEIVED HYDROCODONE IN THE PAST, 08/31/17) Influenza Virus Vaccines (Unverified Allergy, Unknown, 08/31/17) metronidazole (Verified Allergy, Unknown, 08/31/17) Sulfa (Sulfonamide Antibiotics) (Verified Adverse Reaction, Unknown, 08/31/17) Home Medications Aspirin/Acetaminophen/Caffeine 1 Each Tablet, 1 EACH PO PRN PRN for HEADACHE, (Reported) Budesonide/Formoterol Fumarate 10.2 Gm Hfa.aer.ad, 2 PUFF IH BID PRN for SHORTNESS OF BREATH, (Reported) Cyanocobalamin (Vitamin B-12) 500 Mcg Tablet, 500 MCG PO DAILY, (Reported) Dicyclomine HCl 20 Mg Tablet, 20 MG PO BID, (Reported) Estrogen,Sylvie/Me-Testosterone 1 Each Tablet, 1 TAB PO DAILY, (Reported) Gabapentin 600 Mg Tablet, 600 MG PO TID, (Reported) Hydrocodone/Acetaminophen 1 Each Tablet, 1 EACH PO Q6H PRN for PAIN-MODERATE (5- 7), (Reported) Losartan Potassium 25 Mg Tablet, 25 MG PO DAILY, (Reported) Pantoprazole Sodium 40 Mg Tablet.dr, 40 MG PO BID, (Reported) Promethazine HCl 25 Mg Tablet, 25 MG PO Q6H PRN for NAUSEA/VOMITING, (Reported) Patient Home Medication List Home Medication List Reviewed: Yes Review of Systems Review of Systems Constitutional: see HPI; No chills, No fever Psychiatric/Neurological: See HPI, Headache All Other Systems Reviewed Negative Unless Noted: Yes Past Fnbwqjc-Rkrsxs-Ksiven Hx Past Med/Social Hx: Reviewed Nursing Past Med/Soc Hx Patient Social History Type Used: Cigarettes Former Smoker, Quit: Apr 24, 2016 2nd Hand Smoke Exposure: No Recent Foreign Travel: No Contact w/Someone Who Travel: No Recent Hopitalizations: No (NOVEMBER OF 2019 LOW POTASSIUM) Immunizations Up To Date Tetanus Booster (TDap): More than 5yrs PED Vaccines UTD: Yes Seasonal Allergies Seasonal Allergies: Yes Past Medical History Surgeries: Yes (partial gastrectomy) Abdominal, Appendectomy, Hysterectomy Respiratory: Yes Asthma Currently Using BIPAP: No Cardiac: Yes Valvular Heart Disease Neurological: Yes Headaches /Migraines 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: Yes 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, Ovarian Cyst [employer] History: Hysterectomy Sexually Transmitted Disease: No HIV/AIDS: No Genitourinary: No Gastrointestinal: Yes Gastrointestinal Bleed, Obstructive Bowel, Ulcer Musculoskeletal: Yes Scoliosis Endocrine: Yes (hypoglycemia) HEENT: No Loss of Vision: Denies Hearing Impairment: Denies Cancer: No Psychosocial: No Integumentary: No Blood Disorders: Yes (anemia) Adverse Reaction/Blood Tranf: No Family Medical History Reviewed Nursing Family Hx Cancer of colon GRANDMOTHER Family history: Diabetes mellitus 19 FATHER Family history: Hypertension 19 MOTHER Stroke 19 MOTHER Physical Exam Vital Signs Vital Signs - First Documented 06/15/20 06/15/20 17:52 19:57 Temp 36.6 Pulse 82 Resp 18 B/P (MAP) 162/96 (118) Pulse Ox 98 O2 Delivery Room Air Capillary Refill : Height, Weight, BMI Height: 5'0" Weight: 106lbs. 0.0oz. 48.875402nq; 22.07 BMI Method:Stated General Appearance: No Apparent Distress, WD/WN HEENT: PERRL/EOMI, TMs Normal, Normal ENT Inspection, Pharynx Normal Respiratory: Chest Non Tender, Lungs Clear, Normal Breath Sounds, No Accessory Muscle Use, No Respiratory Distress Cardiovascular: Regular Rate, Rhythm, No Edema, No Gallop, No JVD, No Murmur, Normal Peripheral Pulses Neurologic/Psychiatric: Alert, Oriented x3 Skin: Normal Color, Warm/Dry Progress/Results/Core Measures Results/Orders Lab Results Laboratory Tests Test 06/15/20 18:05 Range/Units White Blood Count 6.4 4.3-11.0 10^3/uL Red Blood Count 4.24 3.80-5.11 10^6/uL Hemoglobin 14.1 11.5-16.0 g/dL Hematocrit 43 35-52 % Mean Corpuscular Volume 101 H 80-99 fL Mean Corpuscular Hemoglobin 33 25-34 pg Mean Corpuscular Hemoglobin Concent 33 32-36 g/dL Red Cell Distribution Width 14.8 H 10.0-14.5 % Platelet Count 215 130-400 10^3/uL Mean Platelet Volume 9.3 9.0-12.2 fL Immature Granulocyte % (Auto) 0 % Neutrophils (%) (Auto) 61 42-75 % Lymphocytes (%) (Auto) 29 12-44 % Monocytes (%) (Auto) 8 0-12 % Eosinophils (%) (Auto) 2 0-10 % Basophils (%) (Auto) 1 0-10 % Neutrophils # (Auto) 3.9 1.8-7.8 10^3/uL Lymphocytes # (Auto) 1.9 1.0-4.0 10^3/uL Monocytes # (Auto) 0.5 0.0-1.0 10^3/uL Eosinophils # (Auto) 0.1 0.0-0.3 10^3/uL Basophils # (Auto) 0.1 0.0-0.1 10^3/uL Immature Granulocyte # (Auto) 0.0 0.0-0.1 10^3/uL Sodium Level 143 135-145 MMOL/L Potassium Level 3.4 L 3.6-5.0 MMOL/L Chloride Level 103 98-107 MMOL/L Carbon Dioxide Level 25 21-32 MMOL/L Anion Gap 15 H 5-14 MMOL/L Blood Urea Nitrogen 6 L 7-18 MG/DL Creatinine 0.65 0.60-1.30 MG/DL Estimat Glomerular Filtration Rate > 60 BUN/Creatinine Ratio 9 Glucose Level 148 H 70-105 MG/DL Calcium Level 8.5 8.5-10.1 MG/DL Corrected Calcium 8.8 8.5-10.1 MG/DL Total Bilirubin 0.2 0.1-1.0 MG/DL Aspartate Amino Transf (AST/SGOT) 17 5-34 U/L Alanine Aminotransferase (ALT/SGPT) 16 0-55 U/L Alkaline Phosphatase 101 40-136 U/L Troponin I < 0.028 <0.028 NG/ML Total Protein 6.6 6.4-8.2 GM/DL Albumin 3.6 3.2-4.5 GM/DL My Orders Orders - SASHA PEREZ Troponin I (06/15/20 17:52) Chest 1 View, Ap/Pa Only (06/15/20 17:52) Ekg Tracing (06/15/20 17:52) Ed Iv/Invasive Line Start (06/15/20 17:52) Monitor-Rhythm Ecg Trace Only (06/15/20 17:52) Comprehensive Metabolic Panel (06/15/20 17:52) Ua Culture If Indicated (06/15/20 17:52) Cbc With Automated Diff (06/15/20 17:52) Ketorolac Injection (Toradol Injection) (06/15/20 18:45) Medications Given in ED Current Medications Medications Dose Ordered Sig/Flora Route Start Time Stop Time Status Last Admin Dose Admin Ketorolac Tromethamine 30 mg ONCE ONCE IVP 06/15/20 18:45 06/15/20 18:46 DC 06/15/20 18:46 30 MG Vital Signs/I&O 06/15/20 06/15/20 06/15/20 17:52 18:25 19:57 Temp 36.6 Pulse 82 87 65 Resp 18 14 B/P (MAP) 162/96 (118) 150/97 (114) 150/97 Pulse Ox 98 99 O2 Delivery Room Air Progress Progress Note : Time: 19:53 Progress Note I have seen and evaluated the patient. I have informed her of laboratory and imaging studies. Her migraine has resolved at this time. She was instructed to keep an eye on her blood pressure and continue to take her prescribed medications. Return precautions were given. Departure Impression Primary Impression: Migraine Disposition: 01 HOME, SELF-CARE Condition: Stable/Unchanged Departure-Patient Inst. Decision time for Depature: 19:53 Referrals: [facility] (PCP) Primary Care Physician SONNY PARRISH (Family) Primary Care Physician Patient Instructions: Home Headache Remedies, Migraines (DC) Add. Discharge Instructions: You may use Tylenol as needed for pain relief for your migraine headaches. Call tomorrow morning to schedule an appointment time with Duncan Chase to further evaluate migraines and possible preventative medication. Continue to monitor your blood pressure as instructed by your PCP. Return back to the emergency room for worsening symptoms or concerns as needed. All discharge instructions reviewed with patient and/or family. Voiced understanding. SASHA PEREZ Jun 15, 2020 18:09
[2020-06-15 18:12] LABS: BASOPHILS # (AUTO) 0.1 10^3/uL (0.0-0.1); BASOPHILS % (AUTO) 1 % (0-10); EOSINOPHILS # (AUTO) 0.1 10^3/uL (0.0-0.3); EOSINOPHILS % (AUTO) 2 % (0-10); HEMATOCRIT 43 % (35-52); HEMOGLOBIN 14.1 g/dL (11.5-16.0); LYMPHOCYTES # (AUTO) 1.9 10^3/uL (1.0-4.0); LYMPHOCYTES % (AUTO) 29 % (12-44); MEAN CORPUSCULAR HEMOGLOBIN 33 pg (25-34); MEAN CORPUSCULAR HGB CONC 33 g/dL (32-36); MEAN CORPUSCULAR VOLUME 101 fL (80-99); MEAN PLATELET VOLUME 9.3 fL (9.0-12.2); MONOCYTES # (AUTO) 0.5 10^3/uL (0.0-1.0); MONOCYTES % (AUTO) 8 % (0-12); NEUTROPHILS # (AUTO) 3.9 10^3/uL (1.8-7.8); NEUTROPHILS % (AUTO) 61 % (42-75); PLATELET COUNT 215 10^3/uL (130-400); WHITE BLOOD COUNT 6.4 10^3/uL (4.3-11.0)
[2020-06-15 18:22] LABS: ALBUMIN 3.6 GM/DL (3.2-4.5)
[2020-06-15 18:23] LABS: CHLORIDE 103 MMOL/L (98-107); POTASSIUM 3.4 MMOL/L (3.6-5.0); SODIUM 143 MMOL/L (135-145)
[2020-06-15 18:24] LABS: CALCIUM 8.5 MG/DL (8.5-10.1)
[2020-06-15 18:25] LABS: GLUCOSE 148 MG/DL (70-105); TOTAL PROTEIN 6.6 GM/DL (6.4-8.2)
[2020-06-15 18:26] LABS: CARBON DIOXIDE 25 MMOL/L (21-32)
[2020-06-15 18:27] LABS: BILIRUBIN,TOTAL 0.2 MG/DL (0.1-1.0)
[2020-06-15 18:28] LABS: ALKALINE PHOSPHATASE 101 U/L (40-136)
[2020-06-15 18:29] LABS: CREATININE SERUM 0.65 MG/DL (0.60-1.30); GFR ESTIMATED > 60
[2020-06-15 18:30] LABS: BUN/CREATININE RATIO 9
[2020-06-15 18:31] LABS: ALANINE AMINOTRANSFERASE 16 U/L (0-55)
[2020-06-15] MEDS ORDERED: KETOROLAC 30 MG/ML VIAL IVP ONE (18:45)
--- NOTE | 2020-06-15 18:52 | Diagnostic Imaging Report ---
EXAMINATION: Chest radiograph, portable AP view. DATE: 06/15/2020 6:36 PM INDICATION: 54-year-old female, chest pain. COMPARISON: March 08, 2020. FINDINGS: Heart size and mediastinal contours are unremarkable. There is no identified pneumothorax. There is no large pleural effusion. There is no identified focal airspace consolidation. IMPRESSION: No identified acute cardiopulmonary abnormality. Dictated by: Dictated on workstation # [id number]
[2020-06-15 19:57] VITALS: BP 150/97
== END 2020-06-15 19:58 | disposition home or self-care (01) ==
LOC: EDUNIT# 17:40 → ER 17:42
DX: G43.909 Migraine, unspecified, not intractable, without status migrainosus (principal); J45.909 Unspecified asthma, uncomplicated; Z80.0 Family history of malignant neoplasm of digestive organs; Z82.49 Family history of ischemic heart disease and other diseases of the circulatory system; Z83.3 Family history of diabetes mellitus; Z87.891 Personal history of nicotine dependence; Z88.7 Allergy status to serum and vaccine; Z88.5 Allergy status to narcotic agent; Z88.2 Allergy status to sulfonamides; Z88.8 Allergy status to other drugs, medicaments and biological substances; Z79.82 Long term (current) use of aspirin
CPT/HCPCS: 36415; 71045; 80053; 84484; 85025; 93005; 93041

== ENCOUNTER → 2020-10-17 | Outpatient (CLI) | payer OTHER ==
[~2020-10-17] MED LIST changes: -CIPR500T4 PO; +CIPR500T5 PO; -METO10TA3 PO; +MTC10T PO
[2020-10-17 12:56] LABS: BASOPHILS # (AUTO) 0.1 10^3/uL (0.0-0.1); BASOPHILS % (AUTO) 1 % (0-10); EOSINOPHILS # (AUTO) 0.1 10^3/uL (0.0-0.3); EOSINOPHILS % (AUTO) 1 % (0-10); HEMATOCRIT 44 % (35-52); HEMOGLOBIN 14.4 g/dL (11.5-16.0); LYMPHOCYTES # (AUTO) 2.2 10^3/uL (1.0-4.0); LYMPHOCYTES % (AUTO) 22 % (12-44); MEAN CORPUSCULAR HEMOGLOBIN 33 pg (25-34); MEAN CORPUSCULAR HGB CONC 33 g/dL (32-36); MEAN CORPUSCULAR VOLUME 100 fL (80-99); MEAN PLATELET VOLUME 9.1 fL (9.0-12.2); MONOCYTES # (AUTO) 0.6 10^3/uL (0.0-1.0); MONOCYTES % (AUTO) 7 % (0-12); NEUTROPHILS # (AUTO) 6.8 10^3/uL (1.8-7.8); NEUTROPHILS % (AUTO) 69 % (42-75); PLATELET COUNT 261 10^3/uL (130-400); WHITE BLOOD COUNT 9.8 10^3/uL (4.3-11.0)
[2020-10-17 13:32] LABS: ALANINE AMINOTRANSFERASE 14 U/L (0-55); ALBUMIN 3.5 GM/DL (3.2-4.5); ALKALINE PHOSPHATASE 110 U/L (40-136); BILIRUBIN,TOTAL 0.2 MG/DL (0.1-1.0); BUN/CREATININE RATIO 10; CALCIUM 8.9 MG/DL (8.5-10.1); CARBON DIOXIDE 29 MMOL/L (21-32); CHLORIDE 101 MMOL/L (98-107); CREATININE SERUM 0.62 MG/DL (0.60-1.30); GFR ESTIMATED > 60; GLUCOSE 83 MG/DL (70-105); POTASSIUM 3.9 MMOL/L (3.6-5.0); SODIUM 140 MMOL/L (135-145); TOTAL PROTEIN 6.4 GM/DL (6.4-8.2)
== END ==
LOC: EDSTATUS 07-14 16:25 → ONC 12:41
PROVIDERS: ATTEND Internal Medicine Hematology & Oncology
DX: D50.9 Iron deficiency anemia, unspecified (principal); Z87.11 Personal history of peptic ulcer disease; K31.84 Gastroparesis; K21.00 Gastro-esophageal reflux disease with esophagitis, without bleeding; Z98.890 Other specified postprocedural states
CPT/HCPCS: 80053; 82728; 83540; 83550; 85025; G0463; 99213

== ENCOUNTER 2021-04-14 12:37 | Emergency (ER) | payer SELFPAY ==
[~2021-04-14] VITALS: Ht 162.5 cm; Wt 50.0 kg
[2021-04-14] MEDS ORDERED: fentaNYL INJ 100 MCG/2 ML AMP IVP ONE (13:00)
[2021-04-14] MEDS ORDERED: ACETAMINOPHEN 500 MG TAB (TYLENOL) PO ONE (13:00)
[2021-04-14] MEDS ORDERED: NS IV 1000 ML 1,000 ML IV SCH (13:00)
--- NOTE | 2021-04-14 13:06 | ED General ---
General Stated Complaint: FEVER/VOMITING/BODY ACHES Source of Information: Patient Exam Limitations: No Limitations History of Present Illness Date Seen by Provider: Apr 14, 2021 Time Seen by Provider: 12:52 Initial Comments Patient is a 55-year-old female who presents to the emergency department today with a chief complaint of fever up to 102, body aches, nausea over the course of the last 4 days. Patient states her symptoms started on Friday. She is recently been treated by Dr. Brito, GI and Dr. Mir general surgery in [place] for malnutrition/pyloric sphincter issues. She has a PICC line in place right upper extremity since March 22. She states she is otherwise on a clear liquid diet. She is not Covid vaccinated, she lives with her who works who is also not Covid vaccinated. She denies earache, sore throat, congestion/runny nose. No chest pain or productive cough or shortness of breath. She denies abdominal pain however on physical exam she has diffuse mild abdominal tenderness. She denies dysuria, urgency or frequency, denies abnormal vaginal discharge. No rashes. Specifically the joints that hurt are her back, hips and knees. Also complains of a "burning" discomfort in the area of the PICC insertion site in her right upper arm that tends to radiate up into the right side of her neck and top of the right side of her chest. Patient states her last dose of Tylenol was around 8 AM this morning. She presents mildly tachycardic with a heart rate of 106, good blood pressure and oxygen saturations of 95/96% on room air. All other review of systems reviewed and negative except as stated. Timing/Duration: 3-4 Days Severity: Moderate Modifying Factors: improves with Medication Associated Systoms: Fever/Chills, Malaise, Nausea/Vomiting Allergies and Home Medications Allergies Coded Allergies: morphine (Verified Allergy, Severe, ITCHING & FLUSHING, PT HAS RECEIVED HYDROCODONE IN THE PAST, 08/31/17) Influenza Virus Vaccines (Unverified Allergy, Unknown, 08/31/17) metronidazole (Verified Allergy, Unknown, 08/31/17) Sulfa (Sulfonamide Antibiotics) (Verified Adverse Reaction, Unknown, 08/31/17) Patient Home Medication List Home Medication List Reviewed: Yes Aspirin/Acetaminophen/Caffeine (Excedrin Extra Strength Caplet) 1 Each Tablet, 1 EACH PO PRN PRN for HEADACHE, (Reported) Entered as Reported by: MODESTO BOOKER on 03/08/20 0921 Budesonide/Formoterol Fumarate (Symbicort 160-4.5 Mcg Inhaler) 10.2 Gm Hfa.aer.ad, 2 PUFF IH BID PRN for SHORTNESS OF BREATH, (Reported) Entered as Reported by: MODESTO BOOKER on 03/08/20 0916 Ciprofloxacin HCl (Ciprofloxacin HCl) 500 Mg Tablet, 500 MG PO BID Prescribed by: JOSE ELIAS GODDARD on 04/14/21 1646 Cyanocobalamin (Vitamin B-12) (B-12) 500 Mcg Tablet, 500 MCG PO DAILY, (Reported) Entered as Reported by: MARIANNA MYERS on 11/29/19 1520 Dicyclomine HCl (Dicyclomine HCl) 20 Mg Tablet, 20 MG PO BID, (Reported) Entered as Reported by: SUREKHA BISHOP on 07/22/18 1614 Estrogen,Sylvie/Me-Testosterone (Estrogen-Methyltestos H.s. Tab) 1 Each Tablet, 1 TAB PO DAILY, (Reported) Entered as Reported by: MODESTO BOOKER on 03/08/20 09 Gabapentin (Gabapentin) 600 Mg Tablet, 600 MG PO TID, (Reported) Entered as Reported by: SHIKHA MONTES on 11/30/19 113 Hydrocodone/Acetaminophen (Hydrocodone-Acetamin 10-325 mg) 1 Each Tablet, 1 EACH PO Q6H PRN for PAIN-MODERATE (5-7), (Reported) Entered as Reported by: SOLOMON MENDIETA on 11/29/19 0238 Losartan Potassium (Losartan Potassium) 25 Mg Tablet, 25 MG PO DAILY, (Reported) Entered as Reported by: MODESTO BOOKER on 03/08/20 0916 Ondansetron (Ondansetron Odt) 4 Mg Tab.rapdis, 4 MG PO Q8H PRN for nausea Prescribed by: JOSE ELIAS GODDARD on 04/14/21 1647 Pantoprazole Sodium (Protonix) 40 Mg Tablet.dr, 40 MG PO BID, (Reported) Entered as Reported by: SHIKHA MONTES on 11/30/19 1133 Promethazine HCl (Promethazine Tablet) 25 Mg Tablet, 25 MG PO Q6H PRN for NAUSEA/VOMITING, (Reported) Entered as Reported by: SOLOMON MENDIETA on 11/29/19 0238 Tramadol HCl (Tramadol HCl) 50 Mg Tablet, 50 MG PO Q6H PRN for PAIN Prescribed by: JOSE ELIAS GODDARD on 04/14/21 1647 Review of Systems Review of Systems Constitutional: see HPI, chills, fever, malaise, weakness EENTM: no symptoms reported Respiratory: no symptoms reported Cardiovascular: no symptoms reported Gastrointestinal: nausea Genitourinary: no symptoms reported Musculoskeletal: back pain, joint pain, muscle pain Skin: no symptoms reported All Other Systems Reviewed Negative Unless Noted: Yes Past Qsqrkxy-Ohnqxh-Vtumhv Hx Immunizations Up To Date Tetanus Booster (TDap): More than 5yrs PED Vaccines UTD: Yes Seasonal Allergies Seasonal Allergies: Yes Past Medical History Surgeries: Yes (partial gastrectomy, COLONSCOPY/EGD) Abdominal, Appendectomy, Hysterectomy Respiratory: Yes Asthma Currently Using BIPAP: No Cardiac: Yes Hypertension, Valvular Heart Disease Neurological: Yes Headaches /Migraines 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: Yes 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, 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 History: Hysterectomy Sexually Transmitted Disease: No HIV/AIDS: No Genitourinary: No Gastrointestinal: Yes Gastrointestinal Bleed, Obstructive Bowel, Ulcer Musculoskeletal: Yes Scoliosis Endocrine: Yes (hypoglycemia) HEENT: No Loss of Vision: Denies Hearing Impairment: Denies Cancer: No Psychosocial: No Integumentary: No Blood Disorders: Yes (anemia) Adverse Reaction/Blood Tranf: No Family Medical History Cancer of colon GRANDMOTHER Family history: Diabetes mellitus 19 FATHER Family history: Hypertension 19 MOTHER Stroke 19 MOTHER Physical Exam Vital Signs Vital Signs - First Documented 04/14/21 12:46 Temp 39.7 Pulse 106 Resp 20 B/P (MAP) 131/76 (94) Pulse Ox 95 O2 Delivery Room Air Capillary Refill : Height, Weight, BMI Height: 5'0" Weight: 106lbs. 0.0oz. 48.337208kg; 18.00 BMI Method:Stated General Appearance: No Apparent Distress, WD/WN Eyes: Bilateral Eye Normal Inspection, Bilateral Eye PERRL, Bilateral Eye EOMI HEENT: PERRL/EOMI, Pharynx Normal Neck: Full Range of Motion, Normal Inspection Respiratory: Lungs Clear, Normal Breath Sounds, No Accessory Muscle Use, No Respiratory Distress Cardiovascular: Regular Rate, Rhythm, Normal Peripheral Pulses, Tachycardia Gastrointestinal: Soft, Tenderness (Mild diffuse abdominal tenderness) Extremity: Normal Capillary Refill, Normal Inspection, Normal Range of Motion, Other (Slight tenderness noted over the right upper arm on the dorsal aspect opposite her PICC line; no surrounding erythema at the PICC line insertion site) Neurologic/Psychiatric: Alert, Oriented x3, No Motor/Sensory Deficits, Normal Mood/Affect, maintenance of way clerk II-XII Norm as Tested Skin: Normal Color, Warm/Dry Focused Exam Lactate Level 04/14/21 13:04: Lactic Acid Level 1.67 Lactic Acid Level Laboratory Tests Test 04/14/21 13:04 Lactic Acid Level 1.67 MMOL/L (0.50-2.00) Progress/Results/Core Measures Suspected Sepsis SIRS Temperature: Pulse: Respiratory Rate: Laboratory Tests 04/14/21 13:04: White Blood Count 4.3 Blood Pressure / Mean: 04/14/21 13:04: Lactic Acid Level 1.67 Laboratory Tests 04/14/21 13:04: Creatinine 0.63, Platelet Count 80L, Total Bilirubin 1.6H Results/Orders Lab Results Laboratory Tests Test 04/14/21 13:04 04/14/21 15:30 Range/Units White Blood Count 4.3 4.3-11.0 10^3/uL Red Blood Count 3.61 L 3.80-5.11 10^6/uL Hemoglobin 12.0 11.5-16.0 g/dL Hematocrit 35 35-52 % Mean Corpuscular Volume 98 80-99 fL Mean Corpuscular Hemoglobin 33 25-34 pg Mean Corpuscular Hemoglobin Concent 34 32-36 g/dL Red Cell Distribution Width 13.9 10.0-14.5 % Platelet Count 80 L 130-400 10^3/uL Mean Platelet Volume 12.1 9.0-12.2 fL Immature Granulocyte % (Auto) 1 % Neutrophils (%) (Auto) 94 H 42-75 % Lymphocytes (%) (Auto) 2 L 12-44 % Monocytes (%) (Auto) 3 0-12 % Eosinophils (%) (Auto) 0 0-10 % Basophils (%) (Auto) 1 0-10 % Neutrophils # (Auto) 4.0 1.8-7.8 10^3/uL Lymphocytes # (Auto) 0.1 L 1.0-4.0 10^3/uL Monocytes # (Auto) 0.1 0.0-1.0 10^3/uL Eosinophils # (Auto) 0.0 0.0-0.3 10^3/uL Basophils # (Auto) 0.0 0.0-0.1 10^3/uL Immature Granulocyte # (Auto) 0.0 0.0-0.1 10^3/uL Neutrophils % (Manual) 84 % Lymphocytes % (Manual) 5 % Monocytes % (Manual) 6 % Band Neutrophils 5 % Clumped Platelets Polychromasia SLIGHT Hypochromasia SLIGHT Macrocytosis SLIGHT Sodium Level 135 135-145 MMOL/L Potassium Level 3.2 L 3.6-5.0 MMOL/L Chloride Level 107 98-107 MMOL/L Carbon Dioxide Level 15 L 21-32 MMOL/L Anion Gap 13 5-14 MMOL/L Blood Urea Nitrogen 12 7-18 MG/DL Creatinine 0.63 0.60-1.30 MG/DL Estimat Glomerular Filtration Rate 99 BUN/Creatinine Ratio 19 Glucose Level 137 H 70-105 MG/DL Lactic Acid Level 1.67 0.50-2.00 MMOL/L Calcium Level 9.1 8.5-10.1 MG/DL Corrected Calcium 9.9 8.5-10.1 MG/DL Total Bilirubin 1.6 H 0.1-1.0 MG/DL Aspartate Amino Transf (AST/SGOT) 110 H 5-34 U/L Alanine Aminotransferase (ALT/SGPT) 95 H 0-55 U/L Alkaline Phosphatase 313 H 40-136 U/L Total Protein 6.7 6.4-8.2 GM/DL Albumin 3.0 L 3.2-4.5 GM/DL Monoscreen NEGATIVE NEGATIVE Influenza Type A (RT-PCR) Not Detected Not Detecte Influenza Type B (RT-PCR) Not Detected Not Detecte SARS-CoV-2 RNA (RT-PCR) Not Detected Not Detecte Urine Color YELLOW Urine Clarity CLEAR Urine pH 7.0 5-9 Urine Specific [place] <=1.005 1.016-1.022 Urine Protein 1+ H NEGATIVE Urine Glucose (UA) NEGATIVE NEGATIVE Urine Ketones NEGATIVE NEGATIVE Urine Nitrite NEGATIVE NEGATIVE Urine Bilirubin NEGATIVE NEGATIVE Urine Urobilinogen 2.0 < = 1.0 MG/DL Urine Leukocyte Esterase NEGATIVE NEGATIVE Urine RBC (Auto) 2+ H NEGATIVE Urine RBC 2-5 H /HPF Urine WBC 0-2 /HPF Urine Squamous Epithelial Cells 0-2 /HPF Urine Crystals NONE /LPF Urine Bacteria NEGATIVE /HPF Urine Casts NONE /LPF Urine Mucus NEGATIVE /LPF Urine Culture Indicated CULTURE PENDING My Orders Orders - JOSE ELIAS GODDARD MD Cbc With Automated Diff (04/14/21 12:59) Comprehensive Metabolic Panel (04/14/21 12:59) Blood Culture (04/14/21 12:59) Sputum Culture (04/14/21 12:59) Urinalysis (04/14/21 12:59) Urine Culture (04/14/21 12:59) Chest 1 View, Ap/Pa Only (04/14/21 12:59) Ed Iv/Invasive Line Start (04/14/21 12:59) Ed Iv/Invasive Line Start (04/14/21 12:59) Vital Signs Adult Sepsis Patie Q15M (04/14/21 12:59) O2 (04/14/21 12:59) Remove Rings In Anticipation O (04/14/21 12:59) Lactic Acid Analyzer (04/14/21 12:59) Covid 19 Inhouse Test (04/14/21 12:59) Ns Iv 1000 Ml (Sodium Chloride 0.9%) (04/14/21 13:00) Acetaminophen Tablet (Tylenol Tablet) (04/14/21 13:00) Fentanyl Inj (Sublimaze Injection) (04/14/21 13:00) Manual Differential (04/14/21 13:04) Influenza A And B By Pcr (04/14/21 14:24) Ct Abdomen/Pelvis W (04/14/21 14:50) Iohexol Injection (Omnipaque 350 Mg/Ml 1 (04/14/21 15:00) Received Contrast (Hold Metformin- Contr (04/14/21 15:00) Ns (Ivpb) (Sodium Chloride 0.9% Ivpb Bag (04/14/21 15:00) Ns Iv 500 Ml (Sodium Chloride 0.9%) (04/14/21 15:30) Monotest (04/14/21 16:22) Medications Given in ED Vital Signs/I&O 04/14/21 04/14/21 04/14/21 04/14/21 12:46 13:14 15:22 19:31 Temp 39.7 39.7 38.2 Pulse 106 82 Resp 20 16 B/P (MAP) 131/76 (94) 103/71 Pulse Ox 95 97 O2 Delivery Room Air Room Air Capillary Refill : Progress Note : Time: 14:39 Progress Note Re-evaluated patient, HR down to 94. BP good. She looks better after fluids. FLU and COVID negative. CXR clear. 1641 Again reevaluated patient, she states she continues to feel little puny, her heart rate is down into the 80s. Systolic is 110. I explained to her my thought process as far as antibiotics for suggestion of colitis in the ascending and transverse colon. I advised her I did check a mono test today (mild splenomegaly noted on CT that is new from prior scans ) and will call her with those results this evening. We will put her on Cipro and hold the Flagyl as she is allergic. I would advised her to call Dr. Mir's office first thing Friday as well as her primary care physician's office at [facility]. Return precautions giv en, if she has any worsening symptoms in the next 24 to 36 hours to please come back to the emergency department for reevaluation. Continue her clear fluids at home. Blood culture results pending. Patient seems comfortable with this plan of care. All questions are sought and answered. Patient is stable for discharge. Diagnostic Imaging Diagonstic Imaging: Xray Plain Films/CT/US/NM/MRI: chest Comments [facility], [facility] [place], [place] NAME: DIRK PEREZ [facility] REC#: [id number] PT STATUS: REG ER : 1965 PHYSICIAN: JOSE ELIAS GODDARD MD ADMIT DATE: 04/14/21/ER Signed Date of Exam:04/14/21 CHEST 1 VIEW, AP/PA ONLY EXAMINATION: Chest 1 view HISTORY: Sepsis. Fever. Vomiting. COMPARISON: 06/15/2020. FINDINGS: A right PICC is seen with the tip overlying the low SVC. The lung volumes are normal. No focal consolidation is seen. No large pleural effusion or pneumothorax is seen. The cardiomediastinal silhouette is normal in size and contour. No acute osseous abnormality is seen. IMPRESSION: 1. No focal consolidation or mass. No pleural effusion. 2. Right PICC with the tip overlying the low SVC. Dictated by: Dictated on workstation # [id number] Dict: 04/14/217 Trans: 04/14/211437 [facility] [id number] Interpreted by: WALT SHELDON DO Electronically signed by: WALT SHELDON DO 04/14/21 1438 [facility], [place] NAME: DIRK PEREZ [facility] REC#: [id number] PT STATUS: REG ER : 1965 PHYSICIAN: JOSE ELIAS GODDARD MD ADMIT DATE: 04/14/21/ER Draft Date of Exam:04/14/21 CT ABDOMEN/PELVIS W PROCEDURE: CT abdomen and pelvis with contrast. TECHNIQUE: Multiple contiguous axial images were obtained through the abdomen and pelvis after administration of intravenous contrast. Auto Exposure Controls were utilized during the CT exam to meet ALARA standards for radiation dose reduction. All CT scans use one or more of the following dose optimizing techniques: automated exposure control, MA and/or KvP adjustment based on patient size and exam type or iterative reconstruction. INDICATION: Fever and bodyaches. FINDINGS: The previous CT abdomen/pelvis exam of 02/06/2019 failed to show any sign of an acute abnormality. On this study, there may be slight generalized thickening of the wall of the ascending and transverse colon. This does raise the question of mild colitis. There are also a few fluid-filled segments of small bowel low in the pelvis. These are nonspecific but could also be related to a mild ileus secondary to enteritis. There is no solid pelvic mass or free fluid collection evident. The appendix was not well-visualized but there are no indirect signs of acute appendicitis. The surgical sutures in the pelvis, seen previously, are unchanged. The urinary bladder is grossly unremarkable. The uterus is either atrophic or surgically absent. The images through the upper abdomen again show surgical sutures about the stomach. The liver is prominent, similar in size to the prior study. However, the spleen is now mildly enlarged. The spleen measures 10.1 cm in length as opposed to 7.0 cm previously. The reason for the mild splenomegaly is not certain. The pancreas, the adrenals, the kidneys, the aorta and inferior vena cava show no sign of an acute abnormality. The gallbladder is not well-distended and consequently difficult to assess. There is a vague area of low density in the proximal portal vein (page 30 of 84). This may be due to a flow phenomena as opposed to thrombus formation. If further study is desired, then ultrasound would be recommended. The lung bases are clear. The bone windows show no evidence for a fracture or for a destructive lesion. IMPRESSION: 1. There is slight thickening of the wall of the ascending and transverse colon. This appearance does raise the question of colitis. There may also be an element of enteritis present. 2. There is no acute abnormality of the abdomen or pelvis noted otherwise. 3. Mild splenomegaly has developed in the interval since the prior study. This is of uncertain etiology. 4. The small area of diminished density within the portal vein may be secondary to a flow phenomena as opposed portal vein thrombosis. Recommendations as above. Dictated on workstation # [id number] Dict: 04/14/21 1547 Trans: 04/14/21 1558 [facility] [id number] Interpreted by: ODELL GREWAL MD Electronically signed by: Departure Impression Primary Impression: Fever Qualified Codes: R50.9 - Fever, unspecified Additional Impressions: Colitis Elevated liver function tests Disposition: 01 HOME, SELF-CARE Condition: Stable Departure-Patient Inst. Decision time for Depature: 16:44 Referrals: [facility] (PCP) Primary Care Physician SONNY PARRISH (Family) Primary Care Physician Patient Instructions: Colitis (DC), Fever, Adult (DC) Add. Discharge Instructions: Continue clear liquids as tolerated over the next 24 to 36 hours. Antibiotics, ciprofloxacin twice a day for the next 7 days. Nausea medications and pain medications at home as needed. Please call Sameer Rose's office first thing Friday for a follow-up appointment with repeat labs in 1 week. I would also like you to call Dr. Michelle arriaga's office first thing Friday morning and advise him of your recent illness, especially in light of having a surgery scheduled fairly soon. Come back to the emergency department if you have persistent fever after 48 hours of antibiotics, vomiting, rash, shortness of breath or any other emergent concerning symptoms. Scripts Ondansetron (Ondansetron Odt) 4 Mg Tab.rapdis 4 MG PO Q8H PRN for nausea, #15 TAB Prov: JOSE ELIAS GODDARD MD 04/14/21 Tramadol HCl (Tramadol HCl) 50 Mg Tablet 50 MG PO Q6H PRN for PAIN, #15 TAB 0 Refills Prov: JOSE ELIAS GODDARD MD 04/14/21 Ciprofloxacin HCl (Ciprofloxacin HCl) 500 Mg Tablet 500 MG PO BID, #14 TAB Prov: JOSE ELIAS GODDARD MD 04/14/21 Copy Copies To 1: JONATHAN TODD KATHRYN M MD Apr 14, 2021 13:06
[2021-04-14 13:17] LABS: BASOPHILS % (AUTO) 1 % (0-10); EOSINOPHILS % (AUTO) 0 % (0-10); HEMATOCRIT 35 % (35-52); LYMPHOCYTES # (AUTO) 0.1 10^3/uL (1.0-4.0); LYMPHOCYTES % (AUTO) 2 % (12-44); MEAN CORPUSCULAR HEMOGLOBIN 33 pg (25-34); MEAN CORPUSCULAR HGB CONC 34 g/dL (32-36); MEAN CORPUSCULAR VOLUME 98 fL (80-99); MEAN PLATELET VOLUME 12.1 fL (9.0-12.2); MONOCYTES # (AUTO) 0.1 10^3/uL (0.0-1.0); MONOCYTES % (AUTO) 3 % (0-12); NEUTROPHILS % (AUTO) 94 % (42-75); PLATELET COUNT 80 10^3/uL (130-400); WHITE BLOOD COUNT 4.3 10^3/uL (4.3-11.0)
[2021-04-14 13:29] LABS: POTASSIUM 3.2 MMOL/L (3.6-5.0)
[2021-04-14 13:30] LABS: CALCIUM 9.1 MG/DL (8.5-10.1)
[2021-04-14 13:32] LABS: TOTAL PROTEIN 6.7 GM/DL (6.4-8.2)
[2021-04-14 13:33] LABS: BILIRUBIN,TOTAL 1.6 MG/DL (0.1-1.0)
[2021-04-14 13:35] LABS: CREATININE SERUM 0.63 MG/DL (0.60-1.30)
[2021-04-14 13:44] LABS: BAND NEUTROPHILS 5 %; HYPOCHROMASIA SLIGHT; LYMPHOCYTES % (MANUAL) 5 %; MONOCYTES % (MANUAL) 6 %; NEUTROPHILS % (MANUAL) 84 %; POLYCHROMASIA SLIGHT
--- NOTE | 2021-04-14 14:36 | Diagnostic Imaging Report ---
EXAMINATION: Chest 1 view HISTORY: Sepsis. Fever. Vomiting. COMPARISON: 06/15/2020. FINDINGS: A right PICC is seen with the tip overlying the low SVC. The lung volumes are normal. No focal consolidation is seen. No large pleural effusion or pneumothorax is seen. The cardiomediastinal silhouette is normal in size and contour. No acute osseous abnormality is seen. IMPRESSION: 1. No focal consolidation or mass. No pleural effusion. 2. Right PICC with the tip overlying the low SVC. Dictated by: Dictated on workstation # [id number]
[2021-04-14] MEDS ORDERED: IOHEXOL 350 MG/ML 100 ML (OMNIPAQUE 350) VIAL IV ONE (15:00)
[2021-04-14] MEDS ORDERED: HOLD METFORMIN - RECEIVED CONTRAST 20 ML VIAL IV SCH (15:00)
[2021-04-14] MEDS ORDERED: NS 100 ML (IVPB) BAG IV ONE (15:00)
[2021-04-14] MEDS ORDERED: NS IV 500 ML 500 ML IV SCH (15:30)
[2021-04-14 15:47] LABS: BILIRUBIN,URINE NEGATIVE (NEGATIVE); CLARITY,URINE CLEAR; COLOR,URINE YELLOW; GLUCOSE, URINE (UA) NEGATIVE (NEGATIVE); KETONES,URINE NEGATIVE (NEGATIVE); LEUKOCYTE ESTERASE ,URINE NEGATIVE (NEGATIVE); NITRITE,URINE NEGATIVE (NEGATIVE); PROTEIN,URINE 1+ (NEGATIVE)
[2021-04-14 15:49] LABS: BACTERIA,URINE NEGATIVE /HPF; SQUAMOUS EPITHELIAL CELL,UR 0-2 /HPF; WBC,URINE 0-2 /HPF
--- NOTE | 2021-04-14 15:59 | Diagnostic Imaging Report ---
PROCEDURE: CT abdomen and pelvis with contrast. TECHNIQUE: Multiple contiguous axial images were obtained through the abdomen and pelvis after administration of intravenous contrast. Auto Exposure Controls were utilized during the CT exam to meet ALARA standards for radiation dose reduction. All CT scans use one or more of the following dose optimizing techniques: automated exposure control, MA and/or KvP adjustment based on patient size and exam type or iterative reconstruction. INDICATION: Fever and bodyaches. FINDINGS: The previous CT abdomen/pelvis exam of 02/06/2019 failed to show any sign of an acute abnormality. On this study, there may be slight generalized thickening of the wall of the ascending and transverse colon. This does raise the question of mild colitis. There are also a few fluid-filled segments of small bowel low in the pelvis. These are nonspecific but could also be related to a mild ileus secondary to enteritis. There is no solid pelvic mass or free fluid collection evident. The appendix was not well-visualized but there are no indirect signs of acute appendicitis. The surgical sutures in the pelvis, seen previously, are unchanged. The urinary bladder is grossly unremarkable. The uterus is either atrophic or surgically absent. The images through the upper abdomen again show surgical sutures about the stomach. The liver is prominent, similar in size to the prior study. However, the spleen is now mildly enlarged. The spleen measures 10.1 cm in length as opposed to 7.0 cm previously. The reason for the mild splenomegaly is not certain. The pancreas, the adrenals, the kidneys, the aorta and inferior vena cava show no sign of an acute abnormality. The gallbladder is not well-distended and consequently difficult to assess. There is a vague area of low density in the proximal portal vein (page 30 of 84). This may be due to a flow phenomena as opposed to thrombus formation. If further study is desired, then ultrasound would be recommended. The lung bases are clear. The bone windows show no evidence for a fracture or for a destructive lesion. IMPRESSION: 1. There is slight thickening of the wall of the ascending and transverse colon. This appearance does raise the question of colitis. There may also be an element of enteritis present. 2. There is no acute abnormality of the abdomen or pelvis noted otherwise. 3. Mild splenomegaly has developed in the interval since the prior study. This is of uncertain etiology. 4. The small area of diminished density within the portal vein may be secondary to a flow phenomena as opposed portal vein thrombosis. Recommendations as above. Dictated by: Dictated on workstation # [id number]
[2021-04-14] MEDS ORDERED: CIPR500T5 PO (16:46)
[2021-04-14] MEDS ORDERED: TRM50T PO (16:47)
[2021-04-14] MEDS ORDERED: ONDA4TAB11 PO (16:47)
[2021-04-14 19:31] VITALS: BP 103/71
== END 2021-04-14 16:58 | disposition home or self-care (01) ==
LOC: EDUNIT# 12:37 → ER 12:38
DX: R50.9 Fever, unspecified (principal); K52.9 Noninfective gastroenteritis and colitis, unspecified; R74.8 Abnormal levels of other serum enzymes; R00.0 Tachycardia, unspecified; J45.909 Unspecified asthma, uncomplicated; I10 Essential (primary) hypertension; Z20.822 Contact with and (suspected) exposure to COVID-19; Z79.82 Long term (current) use of aspirin
CPT/HCPCS: 36415; 71045; 74177; 80053; 81000; 83605; 85007; 85027; 86308; 87040; 87088; 87636

== ENCOUNTER 2021-04-15 13:05 | Inpatient (IN) | payer SELFPAY ==
[~2021-04-15] VITALS: Ht 152.4 cm; Wt 45.4 kg
[~2021-04-15 13:05] MED LIST changes: +TRM50T PO
[2021-04-15] MEDS ORDERED: NS IV 1000 ML 1,000 ML IV SCH (13:45)
[2021-04-15] MEDS ORDERED: ONDANSETRON 4 MG/2 ML (SDV) Z0FRAN IV PRN (13:45)
[2021-04-15] MEDS ORDERED: ACETAMINOPHEN 500 MG TAB (TYLENOL) PO PRN (13:45)
--- NOTE | 2021-04-15 13:47 | ED General ---
General Chief Complaint: Fever-Adult/Adol Stated Complaint: FEVER Nursing Triage Note: PT ARRIVED PER EMS PT CO OF FEVERS, TEMP CURRENTLY 103.8. PT CO OF BODY ACHES. PT WAS SEEN IN ED YESTERDAY AND WAS - COVID AND -FLU. PT HAS PICC LINE W TPN INFUSING AWAITING AN ABD SURG Source of Information: Patient Exam Limitations: No Limitations History of Present Illness Date Seen by Provider: Apr 15, 2021 Time Seen by Provider: 13:30 Initial Comments Patient is a 55-year-old female who presents to the emergency room by ambulance today with a chief complaint of generalized fatigue, malaise, body aches specifically back pain, nausea, high fever. I saw this patient 24 hours ago with the same complaints. Septic work-up was initiated, she defervesced with Tylenol and fluids in the department, no objective findings of sepsis. She did have some transaminitis, a slightly low white blood cell count and low platelet count. No evidence of pneumonia on x-ray, no urinary tract infection on urinalysis. CT abdomen and pelvis showed some fluid and wall thickening in the ascending and transverse colon, mild splenomegaly, postop changes related to previous ulcer surgery in her stomach. No evidence of bowel obstruction, intra- abdominal abscess or other pathology. Gallbladder incompletely visualized on CAT scan as it was contracted. Patient was flu tested, mono tested, Covid tested yesterday. All of these were negative. Patient was sent home on . She was advised to drink plenty of clear liquids to stay well-hydrated, take Tylenol every 4 hours, follow-up with Dr. Mir her surgeon on Friday. Patient states that the last time she had Tylenol was around 9:00 this morning. She has not taken any yet. Temperature on arrival is 103.8. She cannot take NSAIDs secondary to history of ulcers. Patient's abdominal exam is significantly more tender on presentation today. Involuntary guarding and distention noted. All other review of systems reviewed and negative except as stated. Timing/Duration: 2-3 Days Severity: Severe Associated Systoms: Fever/Chills, Malaise, Nausea/Vomiting, Weakness Allergies and Home Medications Allergies Coded Allergies: Influenza Virus Vaccines (Verified Allergy, Unknown, 04/15/21) metronidazole (Verified Allergy, Unknown, 04/15/21) Sulfa (Sulfonamide Antibiotics) (Verified Adverse Reaction, Unknown, 04/15) Patient Home Medication List Home Medication List Reviewed: Yes Acetaminophen (Tylenol Extra Strength) 500 Mg Tablet, 1,000 MG PO Q8H PRN for PAIN-MILD (1-4), (Reported) Entered as Reported by: ASHLEY NÚÑEZ on 04/16/21 1256 Last Action: Held Amlodipine Besylate (Amlodipine Besylate) 5 Mg Tablet, 5 MG PO HS, (Reported) Entered as Reported by: ASHLEY NÚÑEZ on 04/16/21 1238 Last Action: Continued Aspirin/Acetaminophen/Caffeine (Excedrin Extra Strength Caplet) 1 Each Tablet, 3-4 EACH PO DAILY PRN for HEADACHE, (Reported) Entered as Reported by: MODESTO BOOKER on 03/08/20 0921 Last Action: Held Atorvastatin Calcium (Atorvastatin Calcium) 20 Mg Tablet, 20 MG PO HS, (Reported) Entered as Reported by: ASHLEY NÚÑEZ on 04/16/21 1240 Last Action: Held Budesonide/Formoterol Fumarate (Symbicort 160-4.5 Mcg Inhaler) 10.2 Gm Hfa.aer.ad, 2 PUFF IH BID PRN for SHORTNESS OF BREATH, (Reported) Entered as Reported by: MODESTO BOOKER on 03/08/20 0916 Last Action: Converted Cholecalciferol (Vitamin D3) (Vitamin D3) 25 Mcg Capsule, 25 MCG PO DAILY, (Reported) Entered as Reported by: ASHLEY NÚÑEZ on 04/16/21 1253 Last Action: Held Cyanocobalamin (Vitamin B-12) (B-12) 500 Mcg Tablet, 500 MCG PO DAILY, (Reported) Entered as Reported by: MARIANNA MYERS on 11/29/19 1520 Last Action: Held Gabapentin (Gabapentin) 600 Mg Tablet, 600 MG PO 0800,1200,1700, (Reported) Entered as Reported by: SHIKHA MONTES on 11/30/19 1133 Last Action: Continued Lorazepam (Ativan) 1 Mg Tablet, 1 MG PO HS PRN for ANXIETY, (Reported) Entered as Reported by: ASHLEY NÚÑEZ on 04/16/21 1243 Last Action: Continued Losartan Potassium (Losartan Potassium) 100 Mg Tablet, 100 MG PO DAILY, (Reported) Entered as Reported by: ASHLEY NÚÑEZ on 04/16/21 1246 Last Action: Continued Pantoprazole Sodium (Protonix) 40 Mg Tablet.dr, 40 MG PO BID, (Reported) Entered as Reported by: SHIKHA MONTES on 11/30/19 1133 Last Action: Reviewed Promethazine HCl (Promethazine Tablet) 25 Mg Tablet, 25 MG PO TID PRN for NAUSEA/VOMITING, (Reported) Entered as Reported by: SOLOMON MENDIETA on 11/29/19 0238 Last Action: Continued Propranolol HCl (Propranolol HCl) 40 Mg Tablet, 40 MG PO BID, (Reported) Entered as Reported by: ASHLEY NÚÑEZ on 04/16/21 1240 Last Action: Converted Tramadol HCl (Tramadol HCl) 50 Mg Tablet, 50 MG PO TID PRN for PAIN-MILD (1-4), (Reported) Entered as Reported by: ASHLEY NÚÑEZ on 04/16/21 1520 Last Action: Reviewed Discontinued Medications Albuterol Sulfate (Proair Hfa) 1 Puff Puff, 2 PUFF IH Q4H PRN for SHORTNESS OF BREATH, (Reported) Discontinued Reason: No Longer Taking Entered as Reported by: ASHLEY NÚÑEZ on 04/16/21 1248 Last Action: Discontinued Ciprofloxacin HCl (Ciprofloxacin HCl) 500 Mg Tablet, 500 MG PO BID Discontinued Reason: No Longer Taking Prescribed by: JOSE ELIAS GODDARD on 04/14/21 1646 Last Action: Discontinued Dicyclomine HCl (Dicyclomine HCl) 20 Mg Tablet, 20 MG PO BID, (Reported) Discontinued Reason: No Longer Taking Entered as Reported by: SUREKHA BISHOP on 07/22/18 1614 Last Action: Discontinued Estrogen,Sylvie/Me-Testosterone (Estrogen-Methyltestos H.s. Tab) 1 Each Tablet, 1 TAB PO DAILY, (Reported) Discontinued Reason: No Longer Taking Entered as Reported by: MODESTO BOOKER on 03/08/20 0921 Last Action: Discontinued Hydrocodone/Acetaminophen (Hydrocodone-Acetamin 10-325 mg) 1 Each Tablet, 1 EACH PO Q6H PRN for PAIN-MODERATE (5-7), (Reported) Discontinued Reason: No Longer Taking Entered as Reported by: SOLOMON MENDIETA on 11/29/19 0238 Last Action: Discontinued Losartan Potassium (Losartan Potassium) 25 Mg Tablet, 25 MG PO DAILY, (Reported) Discontinued Reason: No Longer Taking Entered as Reported by: MODESTO BOOKER on 03/08/20 0916 Last Action: Discontinued Ondansetron (Ondansetron Odt) 4 Mg Tab.rapdis, 4 MG PO Q8H PRN for nausea Discontinued Reason: No Longer Taking Prescribed by: JOSE ELIAS GODDARD on 04/14/211646 Last Action: Discontinued Tramadol HCl (Tramadol HCl) 50 Mg Tablet, 50 MG PO Q6H PRN for PAIN Discontinued Reason: No Longer Taking Prescribed by: JOSE ELIAS GODDARD on 04/14/211646 Last Action: Discontinued Review of Systems Review of Systems Constitutional: see HPI, chills, fever, malaise, weakness EENTM: no symptoms reported Respiratory: short of breath Cardiovascular: no symptoms reported Gastrointestinal: abdominal pain, nausea Genitourinary: no symptoms reported Musculoskeletal: back pain Skin: no symptoms reported All Other Systems Reviewed Negative Unless Noted: Yes Past Djcmqsl-Bafcal-Vgkdug Hx Patient Social History Tobacco Use?: No Smoking Status: Former Smoker Immunizations Up To Date Tetanus Booster (TDap): More than 5yrs PED Vaccines UTD: Yes Seasonal Allergies Seasonal Allergies: Yes Past Medical History Surgeries: Yes (partial gastrectomy, COLONSCOPY/EGD) Abdominal, Appendectomy, Hysterectomy Respiratory: Yes Asthma Currently Using BIPAP: No Cardiac: Yes Hypertension, Valvular Heart Disease Neurological: Yes Headaches /Migraines 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: Yes 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, 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 Sexually Transmitted Disease: No HIV/AIDS: No Genitourinary: No Gastrointestinal: Yes Gastrointestinal Bleed, Obstructive Bowel, Ulcer Musculoskeletal: Yes Scoliosis Endocrine: Yes (hypoglycemia) HEENT: No Loss of Vision: Denies Hearing Impairment: Denies Cancer: No Psychosocial: No Integumentary: No Blood Disorders: Yes (anemia) Adverse Reaction/Blood Tranf: No Family Medical History Cancer of colon GRANDMOTHER Family history: Diabetes mellitus 19 FATHER Family history: Hypertension 19 MOTHER Stroke 19 MOTHER Physical Exam-Suspected Sepsis Physical Exam Vital Signs Vital Signs - First Documented 04/15/21 04/15/21 04/15/21 04/16/21 13:32 18:28 18:36 07:15 Temp 39.9 Pulse 118 Resp 20 B/P (MAP) 127/66 (86) Pulse Ox 99 O2 Delivery Room Air O2 Flow Rate 0.00 FiO2 21 Capillary Refill : Less Than 3 Seconds Blood Pressure Mean: 86 Height, Weight, BMI Height: 5'0" Weight: 106lbs. 0.0oz. 48.472110co; 19.00 BMI Method:Stated General Appearance: Cachetic, Mild Distress Eyes: Bilateral Eye Normal Inspection, Bilateral Eye PERRL, Bilateral Eye EOMI HEENT: PERRL/EOMI, Normal ENT Inspection, Other (slightly dry oral mucosa, no other intraoral pathology noted) Neck: Full Range of Motion, Normal Inspection, Non Tender, Supple, Other (no meningismus) Respiratory: Lungs Clear, Normal Breath Sounds, No Accessory Muscle Use, Other (tachympea) Cardiovascular: Regular Rate, Rhythm, Normal Peripheral Pulses, Tachycardia (112) Gastrointestinal: Abnormal Bowel Sounds (hypoactive), Distended, Guarding, Tenderness Extremity: Normal Capillary Refill, Normal Range of Motion, Non Tender, No Calf Tenderness Neurologic/Psychiatric: Alert, Oriented x3, No Motor/Sensory Deficits, Normal Mood/Affect, magnetic tester II-XII Norm as Tested Skin: normal color, warm/dry, rash (petechial rash/borderline purpuric, dorsum of both hands) Lymphatic: No Adenopathy Focused Exam Lactate Level 04/15/21 14:44: Lactic Acid Level 1.25 Lactic Acid Level Progress/Results/Core Measures Suspected Sepsis SIRS Temperature: Pulse: 118 Respiratory Rate: 20 Laboratory Tests 04/16/21 05:16: White Blood Count 4.4 04/16/21 09:16: White Blood Count 5.0 04/17/21 05:20: White Blood Count 7.2 Blood Pressure 127 /66 Mean: 86 04/15/21 14:44: Lactic Acid Level 1.25 Laboratory Tests 04/15/21 14:20: Creatinine 0.55L, Total Bilirubin 2.0H 04/15/21 14:44: INR Comment 1.0 04/16/21 05:16: Creatinine 0.56L, Platelet Count 38*L 04/16/21 09:16: Total Bilirubin 2.3H, INR Comment 0.9, Platelet Count 43L 04/17/21 05:20: Platelet Count 47L Results/Orders Lab Results Laboratory Tests Test 04/15/21 14:20 04/15/21 14:35 04/15/21 14:44 04/16/21 05:16 Range/Units Sodium Level 137 142 135-145 MMOL/L Potassium Level 2.7 L 3.1 L 3.6-5.0 MMOL/L Chloride Level 107 112 H 98-107 MMOL/L Carbon Dioxide Level 17 L 20 L 21-32 MMOL/L Anion Gap 13 10 5-14 MMOL/L Blood Urea Nitrogen 9 10 7-18 MG/DL Creatinine 0.55 L 0.56 L 0.60-1.30 MG/DL Estimat Glomerular Filtration Rate 116 113 BUN/Creatinine Ratio 16 18 Glucose Level 144 H 135 H 70-105 MG/DL Calcium Level 8.8 8.5 8.5-10.1 MG/DL Corrected Calcium 9.8 8.5-10.1 MG/DL Total Bilirubin 2.0 H 0.1-1.0 MG/DL Aspartate Amino Transf (AST/SGOT) 75 H 5-34 U/L Alanine Aminotransferase (ALT/SGPT) 67 H 0-55 U/L Alkaline Phosphatase 235 H 40-136 U/L Total Protein 5.9 L 6.4-8.2 GM/DL Albumin 2.7 L 3.2-4.5 GM/DL Glucometer 132 H 70-110 MG/DL White Blood Count 4.5 4.4 4.3-11.0 10^3/uL Red Blood Count 3.05 L 3.25 L 3.80-5.11 10^6/uL Hemoglobin 10.0 L 10.7 L 11.5-16.0 g/dL Hematocrit 30 L 32 L 35-52 % Mean Corpuscular Volume 97 99 80-99 fL Mean Corpuscular Hemoglobin 33 33 25-34 pg Mean Corpuscular Hemoglobin Concent 34 33 32-36 g/dL Red Cell Distribution Width 14.2 14.3 10.0-14.5 % Platelet Count 46 L 38 *L 130-400 10^3/uL Mean Platelet Volume 12.8 H 13.2 H 9.0-12.2 fL Immature Granulocyte % (Auto) 0 1 % Neutrophils (%) (Auto) 87 H 75 42-75 % Lymphocytes (%) (Auto) 7 L 18 12-44 % Monocytes (%) (Auto) 6 6 0-12 % Eosinophils (%) (Auto) 0 0 0-10 % Basophils (%) (Auto) 0 0 0-10 % Neutrophils # (Auto) 3.9 3.3 1.8-7.8 10^3/uL Lymphocytes # (Auto) 0.3 L 0.8 L 1.0-4.0 10^3/uL Monocytes # (Auto) 0.3 0.3 0.0-1.0 10^3/uL Eosinophils # (Auto) 0.0 0.0 0.0-0.3 10^3/uL Basophils # (Auto) 0.0 0.0 0.0-0.1 10^3/uL Immature Granulocyte # (Auto) 0.0 0.0 0.0-0.1 10^3/uL Neutrophils % (Manual) 94 % Lymphocytes % (Manual) 3 % Monocytes % (Manual) 3 % Percent Immature Platelet Fraction 7.2 11.1 H 0.0-7.6 % Blood Morphology Comment NORMAL Prothrombin Time 13.6 12.2-14.7 SEC INR Comment 1.0 0.8-1.4 Activated Partial Thromboplast Time 32 24-35 SEC Lactic Acid Level 1.25 0.50-2.00 MMOL/L Test 04/16/21 09:16 04/17/21 05:20 Range/Units White Blood Count 5.0 7.2 4.3-11.0 10^3/uL Red Blood Count 3.61 L 3.11 L 3.80-5.11 10^6/uL Hemoglobin 11.8 10.3 L 11.5-16.0 g/dL Hematocrit 36 30 L 35-52 % Mean Corpuscular Volume 99 98 80-99 fL Mean Corpuscular Hemoglobin 33 33 25-34 pg Mean Corpuscular Hemoglobin Concent 33 34 32-36 g/dL Red Cell Distribution Width 14.5 14.5 10.0-14.5 % Platelet Count 43 L 47 L 130-400 10^3/uL Mean Platelet Volume 14.5 H 9.0-12.2 fL Immature Granulocyte % (Auto) 1 1 % Neutrophils (%) (Auto) 82 H 75 42-75 % Lymphocytes (%) (Auto) 13 17 12-44 % Monocytes (%) (Auto) 4 7 0-12 % Eosinophils (%) (Auto) 0 0 0-10 % Basophils (%) (Auto) 0 0 0-10 % Neutrophils # (Auto) 4.1 5.4 1.8-7.8 10^3/uL Lymphocytes # (Auto) 0.6 L 1.2 1.0-4.0 10^3/uL Monocytes # (Auto) 0.2 0.5 0.0-1.0 10^3/uL Eosinophils # (Auto) 0.0 0.0 0.0-0.3 10^3/uL Basophils # (Auto) 0.0 0.0 0.0-0.1 10^3/uL Immature Granulocyte # (Auto) 0.0 0.1 0.0-0.1 10^3/uL Neutrophils % (Manual) 69 % Lymphocytes % (Manual) 12 % Monocytes % (Manual) 4 % Eosinophils % (Manual) 0 % Basophils % (Manual) 0 % Band Neutrophils 15 % Percent Immature Platelet Fraction 12.6 H 14.0 H 0.0-7.6 % Blood Morphology Comment NORMAL Erythrocyte Sedimentation Rate 89 H 0-30 MM/HR Absolute Reticulocyte Count 31 24-90 10e9/uL Percent Reticulocyte Count 0.86 0.50-2.40 % Prothrombin Time 12.4 12.2-14.7 SEC INR Comment 0.9 0.8-1.4 Activated Partial Thromboplast Time 30 24-35 SEC Fibrinogen 840 H 221-496 MG/DL D-Dimer 8.38 H 0.00-0.49 UG/ML Total Bilirubin 2.3 H 0.1-1.0 MG/DL Direct Bilirubin 1.8 H 0.0-0.3 MG/DL Indirect Bilirubin 0.5 MG/DL Aspartate Amino Transf (AST/SGOT) 73 H 5-34 U/L Alanine Aminotransferase (ALT/SGPT) 66 H 0-55 U/L Alkaline Phosphatase 225 H 40-136 U/L C-Reactive Protein High Sensitivity 19.27 H 0.00-0.50 MG/DL Total Protein 6.5 5.4 L 6.4-8.2 GM/DL Albumin 2.9 L 2.5 L 3.2-4.5 GM/DL Hepatitis A IgM Antibody Non-Reactive Non-Reactive Hepatitis B Surface Antigen Non-Reactive Non-Reactive Hepatitis B Core IgM Antibody Non-Reactive Non-Reactive Hepatitis C Antibody Non-Reactive Non-Reactive Sodium Level 142 135-145 MMOL/L Potassium Level 2.9 L 3.6-5.0 MMOL/L Chloride Level 108 H 98-107 MMOL/L Carbon Dioxide Level 20 L 21-32 MMOL/L Anion Gap 14 5-14 MMOL/L Glucose Level 89 70-105 MG/DL Calcium Level 8.1 L 8.5-10.1 MG/DL Corrected Calcium 9.3 8.5-10.1 MG/DL Micro Results Microbiology 04/15/21 Blood Culture - Preliminary, Resulted No growth 04/15/21 Blood Culture - Preliminary, Resulted Coryneform bacteria See Comments My Orders Orders - JOSE ELIAS GODDARD MD Blood Culture (04/15/21 13:40) Acetaminophen Tablet (Tylenol Tablet) (04/15/21 13:45) Ed Iv/Invasive Line Start (04/15/21 13:40) Ed Iv/Invasive Line Start (04/15/21 13:40) Vital Signs Adult Sepsis Patie Q15M (04/15/21 13:40) Ondansetron Injection (Zofran Injectio (04/15/21 13:45) O2 (04/15/21 13:40) Remove Rings In Anticipation O (04/15/21 13:40) Ns Iv 1000 Ml (Sodium Chloride 0.9%) (04/15/21 13:45) Fentanyl Inj (Sublimaze Injection) (04/15/21 14:15) Comprehensive Metabolic Panel (04/15/21 14:20) Cbc With Automated Diff (04/15/21 14:31) Protime With Inr (04/15/21 14:31) Partial Thromboplastin Time (04/15/21 14:31) Lactic Acid Analyzer (04/15/21 14:36) Us Gallbladder [id number] (04/15/21 14:38) Piperacillin/Tazobactam (Bulk) (Zosyn In (04/15/21 14:45) Manual Differential (04/15/21 14:44) Piperacillin Sodium/Tazobactam (Zosyn Vi (04/15/21 14:55) Ns (Ivpb) (Sodium Chloride 0.9% Ivpb Bag (04/15/21 14:57) Potassium Cl 10meq/50ml Ivpb (Kcl 10 Meq (04/15/21 15:15) Ns Iv 1000 Ml (Sodium Chloride 0.9%) (04/15/21 15:09) Fentanyl Inj (Sublimaze Injection) (04/15/21 15:45) Type And Screen (04/15/21 17:15) Medications Given in ED Vital Signs/I&O 04/16/21 04/16/21 04/16/21 04/16/21 19:06 20:00 20:31 23:49 Temp 36.8 38.0 Pulse 88 86 Resp 18 20 B/P (MAP) 131/64 (86) 133/84 (100) Pulse Ox 94 96 95 O2 Delivery Room Air Room Air Room Air Room Air 04/17/21 04/17/21 04/17/21 04/17/21 00:07 01:28 03:58 05:46 Temp 38.0 38.0 38.2 37.5 Pulse 84 Resp 16 B/P (MAP) 136/76 (96) Pulse Ox 93 O2 Delivery Room Air Capillary Refill : Less Than 3 Seconds Blood Pressure Mean: 86 Progress Note : Time: 14:46 Progress Note noted @1430 the lab pulled back the results of the CBC and Coag profile.. This done because the glucose on the serum chemistry was flagging at 730. therefore all the labs were presumed to have been affected by the blood draw from the arm running her TPN. Patient is getting IVF's and will administer broad spectrum antibiotics (zosyn 4.5gm). awaiting u/S to assess for signs of cholangitis [address] Esquivel on for [facility], he recommends that the best option would be of course to send the patient to [facility] where her digestion operator is. I called [facility] and they are "at capacity". Ultrasound of the right upper quadr ant was performed while I was talking to Ramses, the patient is noted to have minimal sludge within the gallbladder, question a scant bit of pericholecystic fluid. No obvious obstructions/stones. Gallbladder wall and common bile duct are not dilated or thickened Case discussed with Dr. Cam who was on for general surgery this weekend, he believes that this sounds like it is likely an ascending cholangitis type picture. Recommends that the patient be transferred to a facility that has the capability for ERCP. I attempted to contact the patient's digestion operator, Dr. Sameer Rosenberg to get his input. [address] back from Dr Rosenberg. Have made first attempts to arrange transfer [facility] had availabilty, They had me talk to their GI physician protective signal operations supervisor - DR LUI. He advised that (based on presentation of the patient) he did not believe the patient has ascending cholangitis. That she could, in fact be managed with IVF and antibiotics alone. He stated that she did not need an ERCP. He states that he thinks she may need a colonoscopy based on the 24hr drop in her hemoglobin. I called Dr Esquivel back. will continue Zosyn, potassium replacement, fluids, pain and nausea meds. Keep NPO except for ice chips. Adding Type and screen. patient is made aware of the plan and is agreeable. VSS continue to remain stable. Diagnostic Imaging Diagonstic Imaging: Ultrasound Comments [facility], [place] NAME: DIRK PEREZ [facility] REC#: [id number] PT STATUS: REG ER : 1965 PHYSICIAN: JOSE ELIAS GODDARD MD ADMIT DATE: 04/15/21/ER Draft Date of Exam:04/15/21 US GALLBLADDER [id number] PROCEDURE: US gallbladder. INDICATION: Fever, sepsis, RUQ pain. TECHNIQUE: Multiple grayscale sonographic images were obtained of the right upper quadrant of the abdomen. CORRELATION STUDY: None. FINDINGS: LIVER: Questioned slight fatty infiltration of liver parenchyma. Questionable area adjacent to the gallbladder may reflect a small amount of fluid or perhaps some fatty sparing. The main portal vein is patent and with normal direction of flow. Liver length 16.9 cm. GALLBLADDER: Biliary sludge is present. No definitive shadowing gallstones. No significant gallbladder wall thickening. COMMON BILE DUCT: Nondilated at 0.4 cm. AORTA/IVC: Not well visualized. PANCREAS: Visualized portions appearing unremarkable. RIGHT KIDNEY: 11.1 x 6.7 x 6.7 cm. No hydronephrosis. OTHER: None. IMPRESSION: 1. No definitive shadowing gallstone or bile ductal dilatation. 2. Question of perhaps a very small amount of potential fatty sparing versus fluid adjacent to the gallbladder. Dictated on workstation # [id number] Dict: 04/15/21 1537 Trans: 04/15/21 1604 [facility] [id number] Interpreted by: CALLIE BARRON DO Electronically signed by: Departure Communication (Admissions) Time/Spoke to Admitting Phy: 17:10 Discusse malik Esquivel Impression Primary Impression: Fever Qualified Codes: R50.9 - Fever, unspecified Additional Impression: Acute cholangitis Disposition: ADMITTED INPATIENT (ERASED) Condition: Stable Admissions Decision to Admit Reason: Admit from ER (General) Decision to Admit/Date: Apr 15, 2021 Time/Decision to Admit Time: 17:10 Departure-Patient Inst. Ref[facility]: [facility]) Primary Care Physician SONNY PARRISH (Family) Primary Care Physician JOSE ELIAS GODDARD MD Apr 15, 2021 13:47
[2021-04-15] MEDS ORDERED: fentaNYL INJ 100 MCG/2 ML AMP IVP ONE ×2 (14:15→15:45)
[2021-04-15 14:37] LABS: ALBUMIN 2.7 GM/DL (3.2-4.5); POTASSIUM 2.7 MMOL/L (3.6-5.0)
[2021-04-15 14:39] LABS: CALCIUM 8.8 MG/DL (8.5-10.1)
[2021-04-15 14:40] LABS: TOTAL PROTEIN 5.9 GM/DL (6.4-8.2)
[2021-04-15 14:43] LABS: CREATININE SERUM 0.55 MG/DL (0.60-1.30)
[2021-04-15] MEDS ORDERED: PIPERACILLIN/TAZOBACTAM (BULK) 4.5 GM in NS (IVPB) 100 ML IV ONE (14:45)
[2021-04-15 14:50] LABS: BASOPHILS % (AUTO) 0 % (0-10); EOSINOPHILS % (AUTO) 0 % (0-10); MEAN CORPUSCULAR VOLUME 97 fL (80-99); MONOCYTES # (AUTO) 0.3 10^3/uL (0.0-1.0)
[2021-04-15 14:52] LABS: HEMATOCRIT 30 % (35-52); LYMPHOCYTES # (AUTO) 0.3 10^3/uL (1.0-4.0); LYMPHOCYTES % (AUTO) 7 % (12-44); MEAN CORPUSCULAR HEMOGLOBIN 33 pg (25-34); MEAN CORPUSCULAR HGB CONC 34 g/dL (32-36); MEAN PLATELET VOLUME 12.8 fL (9.0-12.2); MONOCYTES % (AUTO) 6 % (0-12); NEUTROPHILS # (AUTO) 3.9 10^3/uL (1.8-7.8); NEUTROPHILS % (AUTO) 87 % (42-75); PLATELET COUNT 46 10^3/uL (130-400); WHITE BLOOD COUNT 4.5 10^3/uL (4.3-11.0)
[2021-04-15] MEDS ORDERED: PIPERACILLIN/TAZO 4.5 GM VIAL (ZOSYN) IV ONE (14:55)
[2021-04-15] MEDS ORDERED: NS (IVPB) 100 ML ONE (14:57)
[2021-04-15 15:02] LABS: PROTHROMBIN TIME PATIENT 13.6 SEC (12.2-14.7)
[2021-04-15 15:03] LABS: LYMPHOCYTES % (MANUAL) 3 %; MONOCYTES % (MANUAL) 3 %; NEUTROPHILS % (MANUAL) 94 %; RBC MORPH NORMAL
[2021-04-15] MEDS ORDERED: NS IV 1000 ML 1,000 ML IV STA (15:09)
[2021-04-15] MEDS: POTASSIUM CL 10MEQ/50ML IVPB 50 ML IV SCH ×2 (15:47→16:44)
--- NOTE | 2021-04-15 15:52 | Diagnostic Imaging Report ---
PROCEDURE: US gallbladder. INDICATION: Fever, sepsis, RUQ pain. TECHNIQUE: Multiple grayscale sonographic images were obtained of the right upper quadrant of the abdomen. CORRELATION STUDY: None. FINDINGS: LIVER: Questioned slight fatty infiltration of liver parenchyma. Questionable area adjacent to the gallbladder may reflect a small amount of fluid or perhaps some fatty sparing. The main portal vein is patent and with normal direction of flow. Liver length 16.9 cm. GALLBLADDER: Biliary sludge is present. No definitive shadowing gallstones. No significant gallbladder wall thickening. COMMON BILE DUCT: Nondilated at 0.4 cm. AORTA/IVC: Not well visualized. PANCREAS: Visualized portions appearing unremarkable. RIGHT KIDNEY: 11.1 x 6.7 x 6.7 cm. No hydronephrosis. OTHER: None. IMPRESSION: 1. No definitive shadowing gallstone or bile ductal dilatation. 2. Question of perhaps a very small amount of potential fatty sparing versus fluid adjacent to the gallbladder. Dictated by: Dictated on workstation # [id number]
[2021-04-15 18:28] VITALS: BP 127/66
[2021-04-15 20:00] VITALS: BP 160/78
[2021-04-15] MEDS: NS IV 1000 ML 1,000 ML IV SCH (20:21)
[2021-04-15] MEDS: ACETAMINOPHEN 500 MG TAB (TYLENOL) PO PRN (20:28)
[2021-04-15] MEDS: fentaNYL INJ 100 MCG/2 ML AMP IVP PRN ×2 (20:31→23:57)
[2021-04-15] MEDS: POTASSIUM CL 10 MEQ/50 ML IVPB (PRE-MIX) IV SCH ×3 (20:31→23:09)
[2021-04-15] MEDS ORDERED: IBUPROFEN TABLET 200 MG TAB PO PRN (22:00)
[2021-04-15] MEDS ORDERED: PANTOPRAZOLE 40 MG (PROTONIX) TAB PO ONE (22:07)
[2021-04-15] MEDS: PIPERACILLIN/TAZO 4.5 GM/NS 100 ML IV SCH ×2 (22:07)
[2021-04-15] MEDS: PANTOPRAZOLE 40 MG (PROTONIX) TAB PO SCH (22:18)
[2021-04-16] VITALS (7 sets, daily range): BP systolic 129–165; BP diastolic 59–84
[2021-04-16] MEDS: POTASSIUM CL 10 MEQ/50 ML IVPB (PRE-MIX) IV SCH (00:30)
[2021-04-16] MEDS: PIPERACILLIN/TAZO 4.5 GM/NS 100 ML IV SCH ×6 (05:10→20:31)
[2021-04-16] MEDS: fentaNYL INJ 100 MCG/2 ML AMP IVP PRN ×7 (05:13→23:24)
[2021-04-16 06:10] LABS: MEAN CORPUSCULAR VOLUME 99 fL (80-99)
[2021-04-16 06:12] LABS: BASOPHILS % (AUTO) 0 % (0-10); EOSINOPHILS % (AUTO) 0 % (0-10); HEMATOCRIT 32 % (35-52); HEMOGLOBIN 10.7 g/dL (11.5-16.0); LYMPHOCYTES # (AUTO) 0.8 10^3/uL (1.0-4.0); LYMPHOCYTES % (AUTO) 18 % (12-44); MEAN CORPUSCULAR HEMOGLOBIN 33 pg (25-34); MEAN CORPUSCULAR HGB CONC 33 g/dL (32-36); MEAN PLATELET VOLUME 13.2 fL (9.0-12.2); MONOCYTES # (AUTO) 0.3 10^3/uL (0.0-1.0); MONOCYTES % (AUTO) 6 % (0-12); NEUTROPHILS # (AUTO) 3.3 10^3/uL (1.8-7.8); NEUTROPHILS % (AUTO) 75 % (42-75); WHITE BLOOD COUNT 4.4 10^3/uL (4.3-11.0)
[2021-04-16 06:19] LABS: PLATELET COUNT 38 10^3/uL (130-400)
[2021-04-16 06:42] LABS: POTASSIUM 3.1 MMOL/L (3.6-5.0)
[2021-04-16 06:43] LABS: CALCIUM 8.5 MG/DL (8.5-10.1)
[2021-04-16 06:47] LABS: CREATININE SERUM 0.56 MG/DL (0.60-1.30)
[2021-04-16] MEDS: PANTOPRAZOLE 40 MG (PROTONIX) TAB PO SCH ×2 (08:13→20:31)
[2021-04-16] MEDS: POTASSIUM CL 10MEQ/50ML IVPB 50 ML IV SCH ×2 (09:03→10:46)
[2021-04-16] MEDS: NS IV 1000 ML 1,000 ML IV SCH (09:03)
[2021-04-16 09:47] LABS: ALBUMIN 2.9 GM/DL (3.2-4.5)
[2021-04-16 09:50] LABS: TOTAL PROTEIN 6.5 GM/DL (6.4-8.2)
[2021-04-16 09:52] LABS: BILIRUBIN,TOTAL 2.3 MG/DL (0.1-1.0)
[2021-04-16 09:55] LABS: BILIRUBIN,DIRECT 1.8 MG/DL (0.0-0.3); BILIRUBIN,INDIRECT 0.5 MG/DL
[2021-04-16 10:24] LABS: FIBRIN DEGRADATION PRODUCTS 8.38 UG/ML (0.00-0.49); INR 0.9 (0.8-1.4); PROTHROMBIN TIME PATIENT 12.4 SEC (12.2-14.7)
[2021-04-16] MEDS: ACETAMINOPHEN 500 MG TAB (TYLENOL) PO PRN (12:05)
[2021-04-16] MEDS: ONDANSETRON 4 MG/2 ML (SDV) Z0FRAN IVP PRN (12:21)
--- NOTE | 2021-04-16 12:22 | Diagnostic Imaging Report ---
EXAMINATION: MRI of the abdomen without contrast. MRCP TECHNIQUE: Multiplanar, multisequence MR images of the abdomen were obtained without intravenous contrast including 3D MIP MRCP images. Exam study is limited by patient motion and inability to complete the exam. HISTORY: Abdominal pain. COMPARISON: None available. FINDINGS: The liver is normal without steatosis. No suspicious liver lesions are seen. No surface nodularity. Gallbladder is normal. There is no biliary ductal dilation. No stricture or filling defect is seen. The pancreatic duct is normal. On the MRCP images, there is flow artifact at the confluence of bile ducts. Pancreas is normal. Spleen is normal. Adrenal glands are normal. Kidneys are normal without hydronephrosis. Visualized bowel is normal. No lymphadenopathy is seen. Lung bases are clear. No osseous lesions are seen. IMPRESSION: 1. Normal bile ducts. Dictated by: Dictated on workstation # [id number]
[2021-04-16] MEDS ORDERED: AMLO-250 PO (12:38)
[2021-04-16] MEDS ORDERED: ATOR20TA66 PO (12:40)
[2021-04-16] MEDS ORDERED: PROP40TA5 PO (12:40)
[2021-04-16] MEDS ORDERED: LORA-405 PO (12:43)
[2021-04-16] MEDS ORDERED: LOSA100T57 PO (12:46)
[2021-04-16] MEDS ORDERED: RT-ALBUINH IH (12:48)
[2021-04-16] MEDS ORDERED: CHOL100048 PO (12:53)
[2021-04-16] MEDS ORDERED: ACET-2267 PO (12:56)
[2021-04-16 13:24] LABS: ABSOLUTE RETIC # 31 10e9/uL (24-90); BASOPHILS % (AUTO) 0 % (0-10); EOSINOPHILS % (AUTO) 0 % (0-10); HEMATOCRIT 36 % (35-52); HEMOGLOBIN 11.8 g/dL (11.5-16.0); LYMPHOCYTES # (AUTO) 0.6 10^3/uL (1.0-4.0); LYMPHOCYTES % (AUTO) 13 % (12-44); MEAN CORPUSCULAR HEMOGLOBIN 33 pg (25-34); MEAN CORPUSCULAR HGB CONC 33 g/dL (32-36); MEAN CORPUSCULAR VOLUME 99 fL (80-99); MEAN PLATELET VOLUME 14.5 fL (9.0-12.2); MONOCYTES # (AUTO) 0.2 10^3/uL (0.0-1.0); MONOCYTES % (AUTO) 4 % (0-12); NEUTROPHILS # (AUTO) 4.1 10^3/uL (1.8-7.8); NEUTROPHILS % (AUTO) 82 % (42-75); PLATELET COUNT 43 10^3/uL (130-400); RETICULOCYTE % 0.86 % (0.50-2.40)
[2021-04-16 13:44] LABS: BAND NEUTROPHILS 15 %; BASOPHILS % (MANUAL) 0 %; EOSINOPHILS % (MANUAL) 0 %; LYMPHOCYTES % (MANUAL) 12 %; MONOCYTES % (MANUAL) 4 %; NEUTROPHILS % (MANUAL) 69 %; RBC MORPH NORMAL
--- NOTE | 2021-04-16 13:51 | History & Physical ---
SAIRA HORTON 04/16/21 1351: History of Present Illness History of Present Illness Reason for visit/HPI Haley is a 55 year old female who presents today with fever, chills, body aches, and pain in her back and joints. She went to the ER on 04/14/2021 with similar symptoms. She was sent home and returned to the ER last night, 04/15/2021 with worsening symptoms of fever and pain and was admitted. She reports symptom onset of high fevers and malaise on 04/11/2021. She reports that on 04/11 she went to a doctor's appointment in [place], [place] and when she returned home she started to feel unwell. She has had a fever every day since 04/11. She reports her symptoms of fever and pain have progressively worsened since 04/11. She denies nausea, vomiting, abdominal pain, difficulty urinating, blood in urine or stool, difficulty defecating, time spent outdoors recently, skin changes or rash, vision or hearing changes, swelling, chest pain, racing heart, or palpitations. She does report a headache, diarrhea on 04/14/2021, shortness of breath with exertion, and incidents of forgetfulness and disorientation since symptom onset. No previous occurrence of symptoms prior to 04/11/2021. She denies alcohol or illicit drug use. Does report a 10 year history of smoking on and off. Quit smoking 1 month ago. Date of Admission Apr 15, 2021 at 17:14 Date Seen by a Provider: Apr 15, 2021 Time Seen by a Provider: 09:15 I consulted on this patient on 04/16/21 13:36 Attending Physician Marianna Myers MD Admitting Physician [facility] Consult Allergies and Home Medications Allergies Coded Allergies: Influenza Virus Vaccines (Verified Allergy, Unknown, 04/15/21) metronidazole (Verified Allergy, Unknown, 04/15/21) Sulfa (Sulfonamide Antibiotics) (Verified Adverse Reaction, Unknown, 04/15/21) Patient Home Medication List Home Medication List Reviewed: Yes Acetaminophen (Tylenol Extra Strength) 500 Mg Tablet, 1,000 MG PO Q8H PRN for PAIN-MILD (1-4), (Reported) Entered as Reported by: ASHLEY NÚÑEZ on 04/16/21 0003 Last Action: Held Amlodipine Besylate (Amlodipine Besylate) 5 Mg Tablet, 5 MG PO HS, (Reported) Entered as Reported by: ASHLEY NÚÑEZ on 04/16/21 1238 Last Action: Continued Aspirin/Acetaminophen/Caffeine (Excedrin Extra Strength Caplet) 1 Each Tablet, 3-4 EACH PO DAILY PRN for HEADACHE, (Reported) Entered as Reported by: MODESTO BOOKER on 03/08/20 0921 Last Action: Held Atorvastatin Calcium (Atorvastatin Calcium) 20 Mg Tablet, 20 MG PO HS, (Reporte d) Entered as Reported by: ASHLEY NÚÑEZ on 04/16/21 1240 Last Action: Held Budesonide/Formoterol Fumarate (Symbicort 160-4.5 Mcg Inhaler) 10.2 Gm Hfa.aer.ad, 2 PUFF IH BID PRN for SHORTNESS OF BREATH, (Reported) Entered as Reported by: MODESTO BOOKER on 03/08/20 0916 Last Action: Converted Cholecalciferol (Vitamin D3) (Vitamin D3) 25 Mcg Capsule, 25 MCG PO DAILY, (Reported) Entered as Reported by: ASHLEY NÚÑEZ on 04/16/21 1253 Last Action: Held Cyanocobalamin (Vitamin B-12) (B-12) 500 Mcg Tablet, 500 MCG PO DAILY, (Reported) Entered as Reported by: MARIANNA MYERS on 11/29/19 1520 Last Action: Held Gabapentin (Gabapentin) 600 Mg Tablet, 600 MG PO 0800,1200,1700, (Reported) Entered as Reported by: SHIKHA MONTES on 11/30/19 1133 Last Action: Continued Lorazepam (Ativan) 1 Mg Tablet, 1 MG PO HS PRN for ANXIETY, (Reported) Entered as Reported by: ASHLEY NÚÑEZ on 04/16/21 1243 Last Action: Continued Losartan Potassium (Losartan Potassium) 100 Mg Tablet, 100 MG PO DAILY, (Reported) Entered as Reported by: ASHLEY NÚÑEZ on 04/16/21 1246 Last Action: Continued Pantoprazole Sodium (Protonix) 40 Mg Tablet.dr, 40 MG PO BID, (Reported) Entered as Reported by: SHIKHA MONTES on 11/30/19 1133 Last Action: Reviewed Promethazine HCl (Promethazine Tablet) 25 Mg Tablet, 25 MG PO TID PRN for NAUSEA/VOMITING, (Reported) Entered as Reported by: SOLOMON MENDIETA on 11/29/19 0238 Last Action: Continued Propranolol HCl (Propranolol HCl) 40 Mg Tablet, 40 MG PO BID, (Reported) Entered as Reported by: ASHLEY NÚÑEZ on 04/16/21 1240 Last Action: Converted Tramadol HCl (Tramadol HCl) 50 Mg Tablet, 50 MG PO TID PRN for PAIN-MILD (1-4), (Reported) Entered as Reported by: ASHLEY NÚÑEZ on 04/16/21 1520 Last Action: Reviewed Discontinued Medications Albuterol Sulfate (Proair Hfa) 1 Puff Puff, 2 PUFF IH Q4H PRN for SHORTNESS OF BREATH, (Reported) Discontinued Reason: No Longer Taking Entered as Reported by: ASHLEY NÚÑEZ on 04/16/21 1248 Last Action: Discontinued Ciprofloxacin HCl (Ciprofloxacin HCl) 500 Mg Tablet, 500 MG PO BID Discontinued Reason: No Longer Taking Prescribed by: JOSE ELIAS GODDARD on 04/14/21 1646 Last Action: Discontinued Dicyclomine HCl (Dicyclomine HCl) 20 Mg Tablet, 20 MG PO BID, (Reported) Discontinued Reason: No Longer Taking Entered as Reported by: SUREKHA BISHOP on 07/22/18 1614 Last Action: Discontinued Estrogen,Sylvie/Me-Testosterone (Estrogen-Methyltestos H.s. Tab) 1 Each Tablet, 1 TAB PO DAILY, (Reported) Discontinued Reason: No Longer Taking Entered as Reported by: MODESTO BOOKER on 03/08/20 0921 Last Action: Discontinued Hydrocodone/Acetaminophen (Hydrocodone-Acetamin 10-325 mg) 1 Each Tablet, 1 EACH PO Q6H PRN for PAIN-MODERATE (5-7), (Reported) Discontinued Reason: No Longer Taking Entered as Reported by: SOLOMON MENDIETA on 11/29/19 0238 Last Action: Discontinued Losartan Potassium (Losartan Potassium) 25 Mg Tablet, 25 MG PO DAILY, (Reported) Discontinued Reason: No Longer Taking Entered as Reported by: MODESTO BOOKER on 03/08/20 0916 Last Action: Discontinued Ondansetron (Ondansetron Odt) 4 Mg Tab.rapdis, 4 MG PO Q8H PRN for nausea Discontinued Reason: No Longer Taking Prescribed by: JOSE ELIAS GODDARD on 04/14/21 1647 Last Action: Discontinued Tramadol HCl (Tramadol HCl) 50 Mg Tablet, 50 MG PO Q6H PRN for PAIN Discontinued Reason: No Longer Taking Prescribed by: JOSE ELIAS GODDARD on 04/14/211646 Last Action: Discontinued Past Kggnedx-Zbuisd-Wrzlae Hx Patient Social History Marrital Status: (10 year history of smoking on and off. Quit smoking one month ago) Tobacco Use?: No Smoking Status: Former Smoker (10 year history of smoking on and off. Quit smoking one month ago) Smokeless Tobacco Frequency: Never a User Use of E-Cig and/or Vaping dev: No Substance use?: No Alcohol Use?: No Pt feels they are or have been: No Immunizations Up To Date Tetanus Booster (TDap): Unknown Hepatitis A: No Hepatitis B: No PED Vaccines UTD: Yes Seasonal Allergies Seasonal Allergies: Yes Current Status status: No status: No Advance Directives: No Communicates: Verbally Primary Language: Moroccan Preferred Spoken Language: Moroccan Is interpretation needed?: No Implanted or Applied Medical D: Central venous access (PICC line in right arm) Past Medical History Surgeries: Abdominal (Billroth II, EGD, colonoscopy), Appendectomy, Hysterectomy Asthma Currently Using CPAP: No Currently Using BIPAP: No Hypertension, Valvular Heart Disease Headaches /Migraines 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 Sexually Transmitted Disease: No HIV/AIDS: No Gastrointestinal Bleed, Obstructive Bowel, Ulcer Scoliosis Are Your Blood Sugars Over 250: No Loss of Vision: Denies Hearing Impairment: Denies Blood Disorders: Yes (anemia) Adverse Reaction/Blood Tranf: No PMHx: GI ulcers Bowel obstruction from adhesions SurgHx: Hysterectomy Partial gastrectomy from ulcer Lysis of adhesions Appendectomy Family Medical History Reviewed Nursing Family Hx Cancer of colon GRANDMOTHER Family history: Diabetes mellitus 19 FATHER Family history: Hypertension 19 MOTHER Stroke 19 MOTHER Review of Systems Constitutional: chills, fever, malaise EENTM: other (tenderness upon palpation of submandibular glands) Respiratory: short of breath (with exertion) Cardiovascular: no symptoms reported Gastrointestinal: RUQ (tenderness upon palpation, guarding), LUQ (tenderness upon palpation, guarding) Genitourinary: no symptoms reported : No Musculoskeletal: back pain, joint pain Skin: no symptoms reported, dryness Psychiatric/Neurological: Headache All Other Systems Reviewed Negative Unless Noted: Yes Physical Exam Vital Signs Vital Signs - First Documented 04/15/21 04/15/21 04/15/21 04/16/21 13:32 18:28 18:36 07:15 Temp 39.9 Pulse 118 Resp 20 B/P (MAP) 127/66 (86) Pulse Ox 99 O2 Delivery Room Air O2 Flow Rate 0.00 FiO2 21 Capillary Refill : Less Than 3 Seconds Height, Weight, BMI Height: 5'0" Weight: 106lbs. 0.0oz. 48.269128fm; 20.36 BMI Method:Stated General Appearance: No Apparent Distress (Seems uncomfortable due to pain), Thin Eyes: Bilateral Eye Normal Inspection, Bilateral Eye PERRL, Bilateral Eye Other (mild icteric coloration of sclera) HEENT: PERRL/EOMI Respiratory: Lungs Clear, Normal Breath Sounds Cardiovascular: Regular Rate, Rhythm, No Edema, No Gallop, No Murmur Gastrointestinal: Normal Bowel Sounds, Guarding (guarding of left and right upper quadrants upon palpation), Tenderness (right and left upper quadrant tenderness upon palpation) Extremity: No Pedal Edema Neurologic/Psychiatric: Alert, Oriented x3, No Motor/Sensory Deficits, Normal Mood/Affect Skin: Normal Color, Warm/Dry Lymphatic: Other (mild submandibular adenopathy) Assessment/Plan Assessment and Plan Problems: (1) Thrombocytopenia Onset Date: ~ 04/15/2021 Status: Acute Assessment & Plan: Thrombocytopenia: re-check CBC to monitor platelet levels. Consult hematology. Also being addressed in plan for severe sepsis treatment. (2) Back pain Status: Acute Qualifiers: Qualified Codes: M54.9 - Dorsalgia, unspecified Assessment & Plan: Back pain: resume home medication gabapentin 600mg PO for pain control. Continue fentanyl citrate 25mcg IV for pain control. Monitor for improvement or worsening. Discontinue acetaminophen and ibuprofen due to elevated liver enzymes and renal status. (3) Joint pain Status: Acute Qualifiers: Qualified Codes: M25.50 - Pain in unspecified joint Assessment & Plan: Joint pain: resume home medication gabapentin 600mg PO for pain control. Continue fentanyl citrate 25mcg IV for pain control. Joint pain may be associated with severe sepsis. Will continue to monitor for improvement or worsening with treatment/plan for severe sepsis. Discontinue acetaminophen and ibuprofen due to elevated liver enzymes and renal status. (4) Elevated liver function tests Status: Acute Assessment & Plan: Elevated liver function tests: re-check liver function labs. MRCP to further evaluate hepatic anatomy. Also being evaluated and treated in severe sepsis assessment and plan. (5) HTN (hypertension) Status: Chronic Qualifiers: Qualified Codes: I10 - Essential (primary) hypertension Assessment & Plan: HTN: continue home medications amlodipine 5mg, losartan 100mg, and propanolol 40mg PO for hypertension control. Continue to monitor blood pressure. (6) Fever Status: Acute Qualifiers: Qualified Codes: R50.9 - Fever, unspecified Assessment & Plan: Fever: being addressed in plan for severe sepsis. Continue to monitor temperature. Discontinue acetaminophen and ibuprofen due to elevated liver enzymes and renal status. Continue sodium chloride 1000ml @ 75ml/hr IV for hydration. (7) Head ache Status: Chronic Qualifiers: Qualified Codes: R51.9 - Headache, unspecified; G89.29 - Other chronic pain Assessment & Plan: Head ache: Continue fentanyl citrate 25mcg IV and gabapentin mg PO for pain control. Continue sodium chloride 1000ml @ 75ml/hr IV for hydration. (8) Severe sepsis Status: Acute Assessment & Plan: Severe sepsis: Patient meets 2/4 SIRS criteria: elevated temperature and elevated HR. RR within normal limits, leukocytosis not present. End organ damage of the liver could be present with elevated liver function tests. Re-check liver function tests. Re-check CBC for signs of infection/leukocytosis and to monitor thrombocytopenia. Order tick panel to search for tick-borne illness. Continue to monitor vital signs, back pain, and joint pain. Continue piperacillin sod/tazobactam sod 4.5gm/sodium chloride 120ml @ 30ml/hr Q8H IV for empiric infection treatment. Hold TPN from PICC line. (9) D-dimer, elevated Onset Date: ~ 04/16/2021 Status: Acute Assessment & Plan: Elevated D-dimer: assess for possible DVT with doppler US bilaterally Admission Diagnosis Fever of 103.8 F with pain of back and joints Admission Status: Inpatient Order (span 2 midnights) Reason for Inpatient Admission: Severe sepsis MARIANNA MYERS MD 04/17/21 1201: Allergies and Home Medications Allergies Coded Allergies: Influenza Virus Vaccines (Verified Allergy, Unknown, 04/15/21) metronidazole (Verified Allergy, Unknown, 04/15/21) Sulfa (Sulfonamide Antibiotics) (Verified Adverse Reaction, Unknown, 04/15/21) Patient Home Medication List Acetaminophen (Tylenol Extra Strength) 500 Mg Tablet, 1,000 MG PO Q8H PRN for PAIN-MILD (1-4), (Reported) Entered as Reported by: ASHLEY NÚÑEZ on 04/16/21 1256 Last Action: Held Amlodipine Besylate (Amlodipine Besylate) 5 Mg Tablet, 5 MG PO HS, (Reported) Entered as Reported by: ASHLEY NÚÑEZ on 04/16/21 1238 Last Action: Continued Aspirin/Acetaminophen/Caffeine (Excedrin Extra Strength Caplet) 1 Each Tablet, 3-4 EACH PO DAILY PRN for HEADACHE, (Reported) Entered as Reported by: MODESTO BOOKER on 03/08/20 0921 Last Action: Held Atorvastatin Calcium (Atorvastatin Calcium) 20 Mg Tablet, 20 MG PO HS, (Re ported) Entered as Reported by: ASHLEY NÚÑEZ on 04/16/21 1240 Last Action: Held Budesonide/Formoterol Fumarate (Symbicort 160-4.5 Mcg Inhaler) 10.2 Gm Hfa.aer.ad, 2 PUFF IH BID PRN for SHORTNESS OF BREATH, (Reported) Entered as Reported by: MODESTO BOOKER on 03/08/20 0916 Last Action: Converted Cholecalciferol (Vitamin D3) (Vitamin D3) 25 Mcg Capsule, 25 MCG PO DAILY, (Reported) Entered as Reported by: ASHLEY NÚÑEZ on 04/16/21 1253 Last Action: Held Cyanocobalamin (Vitamin B-12) (B-12) 500 Mcg Tablet, 500 MCG PO DAILY, (Reported) Entered as Reported by: MARIANNA MYERS on 11/29/19 1520 Last Action: Held Gabapentin (Gabapentin) 600 Mg Tablet, 600 MG PO 0800,1200,1700, (Reported) Entered as Reported by: SHIKHA MONTES on 11/30/19 1133 Last Action: Continued Lorazepam (Ativan) 1 Mg Tablet, 1 MG PO HS PRN for ANXIETY, (Reported) Entered as Reported by: ASHLEY NÚÑEZ on 04/16/21 1243 Last Action: Continued Losartan Potassium (Losartan Potassium) 100 Mg Tablet, 100 MG PO DAILY, (Reported) Entered as Reported by: ASHLEY NÚÑEZ on 04/16/21 1246 Last Action: Continued Pantoprazole Sodium (Protonix) 40 Mg Tablet.dr, 40 MG PO BID, (Reported) Entered as Reported by: SHIKHA MONTES on 11/30/19 1133 Last Action: Reviewed Promethazine HCl (Promethazine Tablet) 25 Mg Tablet, 25 MG PO TID PRN for NAUSEA/VOMITING, (Reported) Entered as Reported by: SOLOMON MENDIETA on 11/29/19 0238 Last Action: Continued Propranolol HCl (Propranolol HCl) 40 Mg Tablet, 40 MG PO BID, (Reported) Entered as Reported by: ASHLEY NÚÑEZ on 04/16/21 1240 Last Action: Converted Tramadol HCl (Tramadol HCl) 50 Mg Tablet, 50 MG PO TID PRN for PAIN-MILD (1-4), (Reported) Entered as Reported by: ASHLEY NÚÑEZ on 04/16/21 1520 Last Action: Reviewed Discontinued Medications Albuterol Sulfate (Proair Hfa) 1 Puff Puff, 2 PUFF IH Q4H PRN for SHORTNESS OF BREATH, (Reported) Discontinued Reason: No Longer Taking Entered as Reported by: ASHLEY NÚÑEZ on 04/16/21 1248 Last Action: Discontinued Ciprofloxacin HCl (Ciprofloxacin HCl) 500 Mg Tablet, 500 MG PO BID Discontinued Reason: No Longer Taking Prescribed by: JOSE ELIAS GODDARD on 04/14/21 1646 Last Action: Discontinued Dicyclomine HCl (Dicyclomine HCl) 20 Mg Tablet, 20 MG PO BID, (Reported) Discontinued Reason: No Longer Taking Entered as Reported by: SUREKHA BISHOP on 07/22/18 1614 Last Action: Discontinued Estrogen,Sylvie/Me-Testosterone (Estrogen-Methyltestos H.s. Tab) 1 Each Tablet, 1 TAB PO DAILY, (Reported) Discontinued Reason: No Longer Taking Entered as Reported by: MODESTO BOOKER on 03/08/20 0921 Last Action: Discontinued Hydrocodone/Acetaminophen (Hydrocodone-Acetamin 10-325 mg) 1 Each Tablet, 1 EACH PO Q6H PRN for PAIN-MODERATE (5-7), (Reported) Discontinued Reason: No Longer Taking Entered as Reported by: SOLOMON MENDIETA on 11/29/19 0238 Last Action: Discontinued Losartan Potassium (Losartan Potassium) 25 Mg Tablet, 25 MG PO DAILY, (Reported) Discontinued Reason: No Longer Taking Entered as Reported by: MODESTO BOOKER on 03/08/20 0916 Last Action: Discontinued Ondansetron (Ondansetron Odt) 4 Mg Tab.rapdis, 4 MG PO Q8H PRN for nausea Discontinued Reason: No Longer Taking Prescribed by: JOSE ELIAS GODDARD on 04/14/21 164 Last Action: Discontinued Tramadol HCl (Tramadol HCl) 50 Mg Tablet, 50 MG PO Q6H PRN for PAIN Discontinued Reason: No Longer Taking Prescribed by: JOSE ELIAS GODDARD on 04/14/211646 Last Action: Discontinued Past Yzomasi-Kiqjhu-Gvsshs Hx Family Medical History Cancer of colon GRANDMOTHER Family history: Diabetes mellitus 19 FATHER Family history: Hypertension 19 MOTHER Stroke 19 MOTHER Supervisory-Addendum Brief Verification & Attestation Participated in pt care: history, MDM, physical Personally performed: exam, history, MDM Care discussed with: Medical Student Procedures: n/a Verification and Attestation of Medical Student E/M Service I personally saw and examined patient and repeated history. I reviewed and verified all information documented by the medical student and made modifications to such information, when appropriate. I personally performed the physical exam and medical decision making. Marianna Myers, Apr 17, 2021,12:00 SAIRA HORTON Apr 16, 2021 13:51 MARIANNA MYERS MD Apr 17, 2021 12:01
[2021-04-16 13:52] LABS: ERYTHROCYTE SEDIMENTATION RATE 89 MM/HR (0-30)
[2021-04-16] MEDS ORDERED: LORazepam 1 MG (ATIVAN) TAB PO PRN (15:00)
[2021-04-16] MEDS ORDERED: PROMETHAZINE 25 MG (PHENERGAN) TAB PO PRN (15:00)
[2021-04-16] MEDS ORDERED: NON-FORMULARY MEDICATION 1 EA EA (Budesonide/Formoterol Fumarate (Symbicort 160-4.5 Mcg In IH PRN (15:00)
[2021-04-16] MEDS ORDERED: TRAM50TA3 PO (15:20)
--- NOTE | 2021-04-16 15:37 | Oncology Consultation ---
Visit Information Visit Information Date of Admission Apr 15, 2021 at 17:14 Attending Physician Winnie Johnson MD Admitting Physician [place] Chief Complaint Fever, general malaise and acute drop of Plt Interval History Ms. Montez is a presented to ER with high fever and general body aching since 04/13/2021. She was in the ER on 04/14/2021 and Plt 80, mild elevated LFTs. Her symptoms were worsening and went back to ER again 2 days later and Plt dropped further to 38, WBC 4.4, Hb 10.7 and also worsening LFTs. She was admitted from ER and was treated with zosyn IV antibiotics. Blood culture from the PICC line tip showed Coryneform bacteria. We are called to evaluate thrombocytopenia. She had normal CBC and CMP on 10/17/2020. I saw her in the past for iron deficiency anemia due to mal-absorption and required IV iron injection. Her Hb was 7 and then up tp 13.4 after 2 doses of IV iron. h/o 3 gastric surgeries in the remote past due to peptic ulcer diseases. She was scheduled to have another surgery to open the blockage of the gastric outlet on 04/23/2021. Her surgeon/GI specialist in [facility] started her on TPN via the PICC (placed 03/24/2021) to get her in a better nutritional status before the surgery. Her PICC line removed this afternoon after the culture result showed positive for Coryneform bacteria. I consulted the patient on: 04/16/21 15:26 Time Seen by Provider: 15:26 Review of Systems Constitutional: see HPI Health Status Allergies Coded Allergies: Influenza Virus Vaccines (Verified Allergy, Unknown, 04/15/21) metronidazole (Verified Allergy, Unknown, 04/15/21) Sulfa (Sulfonamide Antibiotics) (Verified Adverse Reaction, Unknown, 04/15/21) Home Medications Acetaminophen (Tylenol Extra Strength) 500 Mg Tablet, 1,000 MG PO Q8H PRN for PAIN-MILD (1-4), (Reported) Amlodipine Besylate (Amlodipine Besylate) 5 Mg Tablet, 5 MG PO HS, (Reported) Aspirin/Acetaminophen/Caffeine (Excedrin Extra Strength Caplet) 1 Each Tablet, 3-4 EACH PO DAILY PRN for HEADACHE, (Reported) Atorvastatin Calcium (Atorvastatin Calcium) 20 Mg Tablet, 20 MG PO HS, (Reported) Budesonide/Formoterol Fumarate (Symbicort 160-4.5 Mcg Inhaler) 10.2 Gm Hfa.aer.ad, 2 PUFF IH BID PRN for SHORTNESS OF BREATH, (Reported) Cholecalciferol (Vitamin D3) (Vitamin D3) 25 Mcg Capsule, 25 MCG PO DAILY, (R eported) Cyanocobalamin (Vitamin B-12) (B-12) 500 Mcg Tablet, 500 MCG PO DAILY, (Reported) Gabapentin (Gabapentin) 600 Mg Tablet, 600 MG PO 0800,1200,1700, (Reported) Lorazepam (Ativan) 1 Mg Tablet, 1 MG PO HS PRN for ANXIETY, (Reported) Losartan Potassium (Losartan Potassium) 100 Mg Tablet, 100 MG PO DAILY, (Reported) Pantoprazole Sodium (Protonix) 40 Mg Tablet.dr, 40 MG PO BID, (Reported) Promethazine HCl (Promethazine Tablet) 25 Mg Tablet, 25 MG PO TID PRN for NAUSEA/VOMITING, (Reported) Propranolol HCl (Propranolol HCl) 40 Mg Tablet, 40 MG PO BID, (Reported) Tramadol HCl (Tramadol HCl) 50 Mg Tablet, 50 MG PO TID PRN for PAIN-MILD (1-4), (Reported) [id number]-[id number]-[id number] Hx Patient Social History Marrital Status: Smoking Status: Former Smoker Type Used: Cigarettes 2nd Hand Smoke Exposure: No Recent Hopitalizations: No (NOVEMBER OF 2019 LOW POTASSIUM) Alcohol Use?: No Have you traveled recently?: No Immunizations Up To Date Tetanus Booster (TDap): More than 5yrs Family Medical History Family History: Cancer of colon GRANDMOTHER Family history: Diabetes mellitus 19 FATHER Family history: Hypertension 19 MOTHER Stroke 19 MOTHER Physical Exam Vital Signs Vital Signs - First Documented 04/15/21 04/15/21 04/15/21 04/16/21 13:32 18:28 18:36 07:15 Temp 39.9 Pulse 118 Resp 20 B/P (MAP) 127/66 (86) Pulse Ox 99 O2 Delivery Room Air O2 Flow Rate 0.00 FiO2 21 Capillary Refill : Less Than 3 Seconds Height, Weight, BMI Height: 5'0" Weight: 106lbs. 0.0oz. [id number]; 20.36 BMI Method:Stated General Appearance: No Apparent Distress HEENT: PERRL/EOMI Respiratory: No Accessory Muscle Use, No Respiratory Distress Cardiovascular: Regular Rate, Rhythm, No Edema Gastrointestinal: Non Tender, Soft Extremity: Non Tender, No Pedal Edema Neurologic/Psychiatric: Alert, Oriented x3 Data Review Labs Laboratory Tests 04/17/21 05:20 Laboratory Tests 04/15/21 14:20: Potassium Level 2.7L, Carbon Dioxide Level 17L, Creatinine 0.55L, Glucose Level 144H, Total Bilirubin 2.0H, Aspartate Amino Transf (AST/SGOT) 75H, Alanine Aminotransferase (ALT/SGPT) 67H, Alkaline Phosphatase 235H, Total Protein 5.9L, Albumin 2.7L 04/15/21 14:35: Glucometer 132H 04/15/21 14:44: Red Blood Count 3.05L, Hemoglobin 10.0L, Hematocrit 30L, Platelet Count 46L, Mean Platelet Volume 12.8H, Neutrophils (%) (Auto) 87H, Lymphocytes (%) (Auto) 7L, Lymphocytes # (Auto) 0.3L 04/16/21 05:16: Potassium Level 3.1L, Carbon Dioxide Level 20L, Creatinine 0.56L, Glucose Level 135H, Red Blood Count 3.25L, Hemoglobin 10.7L, Hematocrit 32L, Platelet Count 38*L, Mean Platelet Volume 13.2H, Lymphocytes # (Auto) 0.8L, Percent Immature Platelet Fraction 11.1H, Chloride Level 112H 04/16/21 09:16: Red Blood Count 3.61L, Platelet Count 43L, Mean Platelet Volume 14.5H, Neutrophils (%) (Auto) 82H, Lymphocytes # (Auto) 0.6L, Percent Immature Platelet Fraction 12.6H, Erythrocyte Sedimentation Rate 89H, Fibrinogen 840H, D-Dimer 8.38H, Total Bilirubin 2.3H, Direct Bilirubin 1.8H, Aspartate Amino Transf (AST/SGOT) 73H, Alanine Aminotransferase (ALT/SGPT) 66H, Alkaline Phosphatase 225H, C-Reactive Protein High Sensitivity 19.27H, Albumin 2.9L 04/17/21 05:20: Red Blood Count 3.11L, Platelet Count 47L, Percent Immature Platelet Fraction 14.0H, Total Bilirubin 2.0H, Aspartate Amino Transf (AST/SGOT) 53H, Alkaline Phosphatase 187H, Albumin 2.5L, Hemoglobin 10.3L, Hematocrit 30L, Potassium Level 2.9L, Chloride Level 108H, Carbon Dioxide Level 20L, Creatinine 0.55L, Calcium Level 8.1L, Total Protein 5.4L Impression & Plan Impression & Plan IMP: 1. Fever and general malaise, infected PICC line, positive Coryneform bacteria from PICC tip 2. Thrombocytopenia, acute. Most likely due to infection. No major bleeding. Hb relatively stable. Pt had normal CBC and CMP 10/2020. 3. Acute elevated LFTs, most likely from the infection. Non-specific wall thickening of the bowel on initial CT scans, but subsequent MRI of liver and ultrasound of the gallbladder were negative. 4. Normal renal function. Rec: 1. Closely monitoring CBC, plt daily. Transfuse Plt if Plt is below 10 or major bleeding. I anticipate her Plt should be quick recovery after the PICC removed and treating infection. 2. Aggressively treating infection. F/u culture and sensitivity. 3. Will f/u with you. VERENA OROPEZA MD Apr 16, 2021 15:37
--- NOTE | 2021-04-16 15:50 | Diagnostic Imaging Report ---
PROCEDURE: US Venous Lower Ext Jeremie. TECHNIQUE: Multiple real-time grayscale images were obtained over the lower extremities in various projections, bilaterally. Additional duplex Doppler and color Doppler images were also obtained. INDICATION: Sepsis and elevated D-dimer. FINDINGS: There is no evidence of right or left lower extremity DVT. Both lower extremity deep venous systems show normal compressibility with normal response to augmentation and Valsalva. No fluid collection or mass is detected. IMPRESSION: No evidence of right or left lower extremity DVT. Dictated by: Dictated on workstation # [id number]
[2021-04-16] MEDS: GABAPENTIN 600 MG (NEURONTIN) TAB PO SCH (16:55)
[2021-04-16] MEDS: amLODIPine 5 MG (NORVASC) TAB PO SCH (20:31)
[2021-04-16] MEDS: PROPRANOLOL 20 MG (INDERAL) TABLET PO SCH (20:31)
[2021-04-16] MEDS ORDERED: NON-FORMULARY MEDICATION 1 EA EA (Propranolol HCl 40 MG) PO SCH (21:00)
[2021-04-16 21:15] LABS: HEPATITIS C ANTIBODY C Non-Reactive (Non-Reactive)
[2021-04-17] MEDS: ACETAMINOPHEN 500 MG TAB (TYLENOL) PO PRN ×2 (00:07→06:22)
[2021-04-17] MEDS: NS IV 1000 ML 1,000 ML IV SCH ×2 (00:07→13:12)
[2021-04-17] MEDS: fentaNYL INJ 100 MCG/2 ML AMP IVP PRN ×8 (01:39→23:56)
[2021-04-17] MEDS: ONDANSETRON 4 MG/2 ML (SDV) Z0FRAN IVP PRN (01:39)
[2021-04-17 03:58] VITALS: BP 136/76
[2021-04-17] MEDS: PIPERACILLIN/TAZO 4.5 GM/NS 100 ML IV SCH ×6 (04:48→20:41)
[2021-04-17 05:46] LABS: MONOCYTES # (AUTO) 0.5 10^3/uL (0.0-1.0); MONOCYTES % (AUTO) 7 % (0-12); WHITE BLOOD COUNT 7.2 10^3/uL (4.3-11.0)
[2021-04-17 05:48] LABS: BASOPHILS % (AUTO) 0 % (0-10); EOSINOPHILS % (AUTO) 0 % (0-10); HEMATOCRIT 30 % (35-52); HEMOGLOBIN 10.3 g/dL (11.5-16.0); LYMPHOCYTES # (AUTO) 1.2 10^3/uL (1.0-4.0); LYMPHOCYTES % (AUTO) 17 % (12-44); MEAN CORPUSCULAR HEMOGLOBIN 33 pg (25-34); MEAN CORPUSCULAR HGB CONC 34 g/dL (32-36); MEAN CORPUSCULAR VOLUME 98 fL (80-99); NEUTROPHILS # (AUTO) 5.4 10^3/uL (1.8-7.8); NEUTROPHILS % (AUTO) 75 % (42-75); PLATELET COUNT 47 10^3/uL (130-400)
[2021-04-17 06:00] LABS: ALBUMIN 2.5 GM/DL (3.2-4.5); POTASSIUM 2.9 MMOL/L (3.6-5.0)
[2021-04-17 06:01] LABS: CALCIUM 8.1 MG/DL (8.5-10.1)
[2021-04-17 06:02] LABS: TOTAL PROTEIN 5.4 GM/DL (6.4-8.2)
[2021-04-17 06:06] LABS: CREATININE SERUM 0.55 MG/DL (0.60-1.30)
[2021-04-17 07:28] VITALS: BP 145/76
[2021-04-17] MEDS ORDERED: KCL 20 MEQ TAB (K-DUR) PO ONE (07:30)
[2021-04-17] MEDS: POTASSIUM CL 10MEQ/50ML IVPB 50 ML IV SCH ×6 (07:33→13:26)
[2021-04-17] MEDS: GABAPENTIN 600 MG (NEURONTIN) TAB PO SCH ×3 (08:28→17:39)
[2021-04-17] MEDS: LOSARTAN 100 MG (COZAAR) TABLET PO SCH (08:28)
[2021-04-17] MEDS: PROPRANOLOL 20 MG (INDERAL) TABLET PO SCH ×2 (08:28→20:41)
[2021-04-17] MEDS: PANTOPRAZOLE 40 MG (PROTONIX) TAB PO SCH ×2 (08:28→20:41)
--- NOTE | 2021-04-17 10:45 | Progress Note ---
Progress Note Assessment/Plan Date Seen by Provider: Apr 17, 2021 Time Seen by Provider: 10:43 Events since last exam Still had fever last night 1am at 38C Plt is better up to 48 today. Normal WBC counts. Assessment/Plan IMP: 1. Line related infection. Fever and general malaise, infected PICC line, positive Coryneform bacteria from PICC tip 2. Thrombocytopenia, acute. Most likely due to infection. No major bleeding. Hb relatively stable. Pt had normal CBC and CMP 10/2020. 3. Acute elevated LFTs, most likely from the infection. Non-specific wall thickening of the bowel on initial CT scans, but subsequent MRI of liver and ultrasound of the gallbladder were negative. It is improving since the antibiotic treatment. 4. Normal renal function. 5. Multiple gastric surgeries and malnutrition due to poor GI intake. Albumin 2.5 and Pt has been on TPN. Rec: 1. Closely monitoring CBC, plt daily. Transfuse Plt if Plt is below 10 or major bleeding. I anticipate her Plt should recover after the PICC removed and treating infection. However, her malnutrition may slow down the recovery time. 2. Aggressively treating infection. F/u culture and sensitivity. I would suggest to add Doxycycline empirically. Dr Johnson will need to enter the order if agreeable. 3. Will f/u with you. Vitals Last set of Vitals Signs Vital Signs Date Time Temp Pulse Resp B/P (MAP) Pulse Ox O2 Delivery O2 Flow Rate FiO2 04/17/21 09:00 Room Air 04/17/21 07:28 36.8 97 16 145/76 (99) 92 04/16/21 07:15 0.00 04/15/21 18:28 21 I&O I&O Intake and Output 04/17/21 00:00 Intake Total 200 ml Output Total 2075 ml Balance -1875 ml Intake Oral 0 ml IV Total 200 ml Output Urine Total 2075 ml # Voids 1 # Bowel Movements 1 Labs Laboratory Tests 04/17/21 05:20: White Blood Count 7.2, Red Blood Count 3.11L, Hemoglobin 10.3L, Hematocrit 30L, Mean Corpuscular Volume 98, Mean Corpuscular Hemoglobin 33, Mean Corpuscular Hemoglobin Concent 34, Red Cell Distribution Width 14.5, Platelet Count 47L, Mean Platelet Volume , Immature Granulocyte % (Auto) 1, Neutrophils (%) (Auto) 7 5, Lymphocytes (%) (Auto) 17, Monocytes (%) (Auto) 7, Eosinophils (%) (Auto) 0, Basophils (%) (Auto) 0, Neutrophils # (Auto) 5.4, Lymphocytes # (Auto) 1.2, Monocytes # (Auto) 0.5, Eosinophils # (Auto) 0.0, Basophils # (Auto) 0.0, Immature Granulocyte # (Auto) 0.1, Percent Immature Platelet Fraction 14.0H, Sodium Level 142, Potassium Level 2.9L, Chloride Level 108H, Carbon Dioxide Level 20L, Anion Gap 14, Blood Urea Nitrogen 10, Creatinine 0.55L, Estimat Glomerular Filtration Rate 116, BUN/Creatinine Ratio 18, Glucose Level 89, Calcium Level 8.1L, Corrected Calcium 9.3, Total Bilirubin 2.0H, Aspartate Amino Transf (AST/SGOT) 53H, Alanine Aminotransferase (ALT/SGPT) 49, Alkaline Phosphatase 187H, Total Protein 5.4L, Albumin 2.5L Microbiology 04/15/21 Blood Culture - Preliminary, Resulted No growth Focused Exam Lactate Level 04/15/21 14:44: Lactic Acid Level 1.25 VERENA OROPEZA MD Apr 17, 2021 10:45
[2021-04-17 11:23] VITALS: BP 111/68
--- NOTE | 2021-04-17 11:29 | Progress Note ---
SAIRA HORTON 04/17/21 1129: Subjective Date Seen by a Provider: Apr 17, 2021 Time Seen by a Provider: 09:00 Subjective/Events-last exam Haley is a 55 year old female who presents with severe sepsis. This morning she reports that her pain level is the same as it was yesterday. The pain is worse when turning over. Feels as though medication is managing pain. She reports sleeping on and off last night. She said she feels better now that her fever is not as high. Denies a headache today. She is tolerating taking her medications PO and has been eating ice and drinking water from the melted ice. She is wanting to try a clear liquid diet; she was on this diet at home and tolerated it well. She reports that she has not eaten much since Friday04/13/2021 due to not feeling well and the diarrhea. She denies blood in her urine and stool; she had a bowel movement yesterday. Denies dysuria. Her shortness of breath upon exertion is better today; she feels as though she is able to catch her breath more easily. She stated that she is concerned about becoming hypoglycemic from not eating, counseled her that we are able to monitor her blood glucose levels and treat accordingly with her IV fluids. She also stated that with the K+ tablet she would like an antacid; at home she takes an antacid with her K+ to prevent upset stomach. Review of Systems General: Appetite (wanting to try a clear liquid diet) HEENT: No Head Aches Pulmonary: Other (Shortness of breath is improving) Cardiovascular: Other (Shortness of breath is improving) Gastrointestinal: Abdominal Pain (pain upon palpation of left and right upper quadrants) Genitourinary: No Dysuria Musculoskeletal: back pain Focused Exam Sepsis Stage: Ruled Out (Heart rate has decreased to normal limits, respirations within normal limits, temperature still elevated, leukocytosis absent) Reason for ruling out sepsis: See note above Possible Source: Unknown Lactate Level 04/15/21 14:44: Lactic Acid Level 1.25 Objective Exam Last Set of Vital Signs Vital Signs Date Time Temp Pulse Resp B/P (MAP) Pulse Ox O2 Delivery O2 Flow Rate FiO2 04/17/21 09:00 Room Air 04/17/21 07:28 36.8 97 16 145/76 (99) 92 04/16/21 07:15 0.00 04/15/21 18:28 21 Capillary Refill : Less Than 3 Seconds I&O Intake and Output 04/17/21 00:00 Intake Total 200 ml Output Total 2075 ml Balance -1875 ml Intake Oral 0 ml IV Total 200 ml Output Urine Total 2075 ml # Voids 1 # Bowel Movements 1 General: Alert, Cooperative, No Acute Distress HEENT: Atraumatic Lungs: Clear to Auscultation, Normal Air Movement Heart: Regular Rate, Normal S1, Normal S2, No Murmurs Abdomen: Normal Bowel Sounds Extremities: No Edema, Normal Pulses, No Tenderness/Swelling Skin: No Rashes Neuro: Normal Speech Psych/Mental Status: Mental Status NL, Mood NL Results Lab Laboratory Tests 04/17/21 05:20: White Blood Count 7.2, Red Blood Count 3.11L, Hemoglobin 10.3L, Hematocrit 30L, Mean Corpuscular Volume 98, Mean Corpuscular Hemoglobin 33, Mean Corpuscular Hemoglobin Concent 34, Red Cell Distribution Width 14.5, Platelet Count 47L, Mean Platelet Volume , Immature Granulocyte % (Auto) 1, Neutrophils (%) (Auto) 75, Lymphocytes (%) (Auto) 17, Monocytes (%) (Auto) 7, Eosinophils (%) (Auto) 0, Basophils (%) (Auto) 0, Neutrophils # (Auto) 5.4, Lymphocytes # (Auto) 1.2, Monocytes # (Auto) 0.5, Eosinophils # (Auto) 0.0, Basophils # (Auto) 0.0, Immature Granulocyte # (Auto) 0.1, Percent Immature Platelet Fraction 14.0H, Sodium Level 142, Potassium Level 2.9L, Chloride Level 108H, Carbon Dioxide Level 20L, Anion Gap 14, Blood Urea Nitrogen 10, Creatinine 0.55L, Estimat Glomerular Filtration Rate 116, BUN/Creatinine Ratio 18, Glucose Level 89, Calcium Level 8.1L, Corrected Calcium 9.3, Total Bilirubin 2.0H, Aspartate Amino Transf (AST/SGOT) 53H, Alanine Aminotransferase (ALT/SGPT) 49, Alkaline Phosphatase 187H, Total Protein 5.4L, Albumin 2.5L Microbiology 04/15/21 Blood Culture - Preliminary, Resulted No growth Assessment/Plan Assessment/Plan Assess & Plan/Chief Complaint See problems list Diagnosis/Problems Diagnosis/Problems (1) Thrombocytopenia Onset Date: ~ 04/15/2021 Status: Acute Assessment & Plan: Thrombocytopenia: re-check CBC to monitor platelet levels. Consult hematology. Also being addressed in plan for severe sepsis treatment. 04/17/2021:Continue to monitor platelet levels with CBC. Levels are improving. Consult hematology. (2) Back pain Status: Acute Assessment & Plan: Back pain: resume home medication gabapentin 600mg PO for pain control. Continue fentanyl citrate 25mcg IV for pain control. Monitor for improvement or worsening. Discontinue acetaminophen and ibuprofen due to elevated liver enzymes and renal status. 04/17/2021: Continue with initial plan due to no improvement of back pain. Qualifiers: Qualified Codes: M54.9 - Dorsalgia, unspecified (3) Joint pain Status: Acute Assessment & Plan: Joint pain: resume home medication gabapentin 600mg PO for pain control. Continue fentanyl citrate 25mcg IV for pain control. Joint pain may be associated with severe sepsis. Will continue to monitor for improvement or worsening with treatment/plan for severe sepsis. Discontinue acetaminophen and ibuprofen due to elevated liver enzymes and renal status. 04/17/2021: Continue with initial plan due to no improvement of joint pain. Qualifiers: Qualified Codes: M25.50 - Pain in unspecified joint (4) Elevated liver function tests Status: Acute Assessment & Plan: Elevated liver function tests: re-check liver function labs. MRCP to further evaluate hepatic anatomy. Also being evaluated and treated in severe sepsis assessment and plan. 04/17/2021: Continue to monitor liver enzymes. MRCP came back with no remarkable findings. ALT is within normal limits today at 49. ALP elevated but improved from 225 to 187. AST elevated but improved from 73 to 53. Total bilirubin elevated but improved from 2.3 to 2.0. (5) HTN (hypertension) Status: Chronic Assessment & Plan: HTN: continue home medications amlodipine 5mg, losartan 100mg, and propanolol 40mg PO for hypertension control. Continue to monitor blood pressure. 04/17/2021: Blood pressure within normal limits today, continue with home medications for blood pressure control. Continue to monitor. Qualifiers: Qualified Codes: I10 - Essential (primary) hypertension (6) Fever Status: Acute Assessment & Plan: Fever: being addressed in plan for severe sepsis. Continue to monitor temperature. Discontinue acetaminophen and ibuprofen due to elevated liver enzymes and renal status. Continue sodium chloride 1000ml @ 75ml/hr IV for hydration. 04/17/2021: Max temperature during the past 24hrs is 38.2. Fever is still present but temperature has declined. Continue to monitor. Continue sodium chloride 1000ml @ 75ml/hr IV for hydration. Qualifiers: Qualified Codes: R50.9 - Fever, unspecified (7) Head ache Status: Chronic Assessment & Plan: Head ache: Continue fentanyl citrate 25mcg IV and gabapentin mg PO for pain control. Continue sodium chloride 1000ml @ 75ml/hr IV for hy dration. 04/17/21: Head ache is not present today. Continue initial plan and monitor. Qualifiers: Qualified Codes: R51.9 - Headache, unspecified; G89.29 - Other chronic pain (8) Severe sepsis Status: Acute Assessment & Plan: Severe sepsis: Patient meets 2/4 SIRS criteria: elevated temperature and elevated HR. RR within normal limits, leukocytosis not present. End organ damage of the liver could be present with elevated liver function tests. Re-check liver function tests. Re-check CBC for signs of infection/leukocytosis and to monitor thrombocytopenia. Order tick panel to search for tick-borne illness. Continue to monitor vital signs, back pain, and joint pain. Continue piperacillin sod/tazobactam sod 4.5gm/sodium chloride 120ml @ 30ml/hr Q8H IV for empiric infection treatment. Hold TPN from PICC line. 04/17/21: patient seems to be improving today; tachycardia has resolved, fever is still present but temperature is declining, leukocytosis is absent, and RR has remained within normal limits. Continue with piperacillin sod/tazobactam sod 4.5gm/sodium chloride 120ml @ 30ml/hr Q8H IV since fever still persists and source of infection remains unknown. Tick panel is still pending. PICC line has been removed. Liver enzymes improving. Continue to monitor vital signs and pain. (9) D-dimer, elevated Onset Date: ~ 04/16/2021 Status: Acute Assessment & Plan: Elevated D-dimer: assess for possible DVT with doppler US bilaterally. 04/17/2021: doppler US came back negative. DVT ruled-out. Continue to monitor for swelling or change in extremities. Clinical Quality Measures Admission Status Admission Dx Fever of 103.8 F with pain of back and joints LUCIA,WINNIE N MD 04/17/21 1526: Supervisory-Addendum Brief Verification & Attestation Participated in pt care: history, MDM, physical Personally performed: exam, history, MDM Care discussed with: Medical Student Procedures: n/a Verification and Attestation of Medical Student E/M Service A medical student performed and documented this service in my presence. I reviewed and verified all information documented by the medical student and made modifications to such information, when appropriate. I personally performed the physical exam and medical decision making. patient has continued upper abdominal ttp, but decreased from yesterday and with less guarding. PICC line blood cx with corynebacterium, tip culture pending. Acute viral hep panel neg. Winnie Johnson, Apr 17, 2021,15:25 SAIRA HORTON Apr 17, 2021 11:29 WINNIE JOHNSON MD Apr 17, 2021 15:26
[2021-04-17 15:49] VITALS: BP 159/83
[2021-04-17 15:49] LABS: CALCIUM 8.1 MG/DL (8.5-10.1); CREATININE SERUM 0.56 MG/DL (0.60-1.30); POTASSIUM 3.9 MMOL/L (3.6-5.0)
[2021-04-17 19:07] VITALS: BP 120/69
[2021-04-17] MEDS: amLODIPine 5 MG (NORVASC) TAB PO SCH (20:41)
[2021-04-17] MEDS: RT--FLUTICASONE/SALMETEROL 232-14 (AIRDUO RespiCLICK) IH SCH (21:12)
[2021-04-17] MEDS: ACETAMINOPHEN 325 MG TABLET PO PRN (22:04)
[2021-04-17] MEDS: RT-ALBUTEROL SULF 2.5 MG/3 ML PRE-MIX VIAL INH PRN (23:10)
[2021-04-17 23:30] VITALS: BP 139/79
[2021-04-18] MEDS ORDERED: IOHEXOL 350 MG/ML 100 ML (OMNIPAQUE 350) VIAL IV ONE (01:15)
[2021-04-18] MEDS ORDERED: NS 100 ML (IVPB) BAG IV ONE (01:15)
[2021-04-18] MEDS ORDERED: HOLD METFORMIN - RECEIVED CONTRAST 20 ML VIAL IV SCH (01:15)
[2021-04-18] MEDS: fentaNYL INJ 100 MCG/2 ML AMP IVP PRN ×7 (02:52→20:43)
[2021-04-18 04:00] VITALS: BP 145/78
[2021-04-18] MEDS: ACETAMINOPHEN 325 MG TABLET PO PRN ×2 (04:51→15:21)
[2021-04-18 05:56] LABS: BASOPHILS % (AUTO) 0 % (0-10); HEMOGLOBIN 9.6 g/dL (11.5-16.0)
[2021-04-18 05:58] LABS: EOSINOPHILS % (AUTO) 0 % (0-10); HEMATOCRIT 29 % (35-52); LYMPHOCYTES # (AUTO) 1.5 10^3/uL (1.0-4.0); LYMPHOCYTES % (AUTO) 16 % (12-44); MEAN CORPUSCULAR HEMOGLOBIN 32 pg (25-34); MEAN CORPUSCULAR HGB CONC 34 g/dL (32-36); MEAN CORPUSCULAR VOLUME 95 fL (80-99); MEAN PLATELET VOLUME 13.4 fL (9.0-12.2); MONOCYTES # (AUTO) 0.9 10^3/uL (0.0-1.0); MONOCYTES % (AUTO) 9 % (0-12); NEUTROPHILS # (AUTO) 6.9 10^3/uL (1.8-7.8); NEUTROPHILS % (AUTO) 74 % (42-75); PLATELET COUNT 97 10^3/uL (130-400); WHITE BLOOD COUNT 9.4 10^3/uL (4.3-11.0)
[2021-04-18 06:23] LABS: ALBUMIN 2.4 GM/DL (3.2-4.5); BILIRUBIN,TOTAL 2.3 MG/DL (0.1-1.0); CALCIUM 7.9 MG/DL (8.5-10.1); CREATININE SERUM 0.53 MG/DL (0.60-1.30); POTASSIUM 2.8 MMOL/L (3.6-5.0); TOTAL PROTEIN 5.4 GM/DL (6.4-8.2)
[2021-04-18] MEDS: RT--FLUTICASONE/SALMETEROL 232-14 (AIRDUO RespiCLICK) IH SCH ×2 (06:58→22:09)
[2021-04-18] MEDS: RT-ALBUTEROL SULF 2.5 MG/3 ML PRE-MIX VIAL INH PRN (06:58)
[2021-04-18 07:18] VITALS: BP 118/72
--- NOTE | 2021-04-18 07:53 | Diagnostic Imaging Report ---
PROCEDURE: CT angiography of the chest with contrast. TECHNIQUE: Multiple contiguous axial images were obtained through the chest after uneventful bolus administration of intravenous contrast. 3D reconstructed CTA MIP acquisitions were also performed. Auto Exposure Controls were utilized during the CT exam to meet ALARA standards for radiation dose reduction. INDICATION: Respiratory distress. Elevated d-dimer. FINDINGS: Good opacification of the aorta and pulmonary arteries. No evidence of aortic aneurysm or dissection. Pulmonary artery show no filling defects that would indicate pulmonary emboli. There are diffuse 5 lobe scattered dense alveolar infiltrates. There are small bilateral basilar pleural effusion. No evidence of pericardial effusion. No mediastinal or hilar adenopathy of pathologic size. There is hepatosplenomegaly. IMPRESSION: 1. No evidence of pulmonary emboli. 2. There are 5 lobe infiltrates likely secondary to pneumonia. 3. Hepatosplenomegaly. These findings are concordant with the preliminary report. Dictated by: Dictated on workstation # [id number]
[2021-04-18] MEDS ORDERED: ANIDULAFUNGIN INJECTION 200 MG in NS (IVPB) 250 ML IV ONE (08:00)
[2021-04-18] MEDS: LOSARTAN 100 MG (COZAAR) TABLET PO SCH (08:27)
[2021-04-18] MEDS: GABAPENTIN 600 MG (NEURONTIN) TAB PO SCH ×3 (08:27→17:36)
[2021-04-18] MEDS: PROPRANOLOL 20 MG (INDERAL) TABLET PO SCH ×2 (08:27→20:40)
[2021-04-18] MEDS: PANTOPRAZOLE 40 MG (PROTONIX) TAB PO SCH ×2 (08:27→20:40)
[2021-04-18 12:24] VITALS: BP 136/63
--- NOTE | 2021-04-18 12:28 | Progress Note ---
SAIRA HORTON 04/18/21 1228: Subjective Date Seen by a Provider: Apr 18, 2021 Time Seen by a Provider: 11:40 Subjective/Events-last exam Yesterday evening at 22:00, Haley developed severe shortness of breath. She felt as though she could not catch her breath. Her SOB was better yesterday morning that it had been on day of admission. She reports that she was given breathing treatments which helped. She reports that her breathing is better this morning, despite a rough night. She denies sharp or stabbing chest pain. Her pain is well controlled at this time and she is still able to ambulate to use the restroom. When getting up to use the restroom she tries to walk around her room for a short amount of time. She is tolerating the clear liquid diet well, would like to stay on this diet rather than trying more solid food. Review of Systems General: No Chills; Appetite (would like to continue with liquid diet) HEENT: No Head Aches Pulmonary: Dyspnea, Other (shortness of breath) Cardiovascular: No: Chest Pain, Edema Focused Exam Sepsis Stage: Ruled Out Lactate Level 04/15/21 14:44: Lactic Acid Level 1.25 Objective Exam Last Set of Vital Signs Vital Signs Date Time Temp Pulse Resp B/P (MAP) Pulse Ox O2 Delivery O2 Flow Rate FiO2 04/18/21 09:00 Nasal Cannula 2.00 04/18/21 07:18 36.6 118 72 118/72 (87) 91 04/15/21 18:28 21 Capillary Refill : Less Than 3 Seconds I&O Intake and Output 04/18/21 00:00 Intake Total 840 ml Output Total 1400 ml Balance -560 ml Intake Oral 840 ml Output Urine Total 1400 ml # Voids 2 General: Alert, Cooperative, No Acute Distress HEENT: Atraumatic Lungs: Clear to Auscultation, Normal Air Movement Heart: Regular Rate, Normal S1, Normal S2 Abdomen: Normal Bowel Sounds, Soft, Other (Mild tenderness upon palpation of LUQ and RUQ, no guarding present) Extremities: No Edema, Normal Pulses Neuro: Normal Speech Results Lab Laboratory Tests 04/17/21 13:09: Stool Occult Blood Immunoassay POSITIVEH 04/17/21 15:25: Sodium Level 140, Potassium Level 3.9, Chloride Level 109H, Carbon Dioxide Level 20L, Anion Gap 11, Blood Urea Nitrogen 10, Creatinine 0.56L, Estimat Glomerular Filtration Rate 113, BUN/Creatinine Ratio 18, Glucose Level 83, Calcium Level 8.1L 04/18/21 05:11: Sodium Level 136, Potassium Level 2.8L, Chloride Level 105, Carbon Dioxide Level 19L, Anion Gap 12, Blood Urea Nitrogen 5L, Creatinine 0.53L, Estimat Glomerular Filtration Rate 121, BUN/Creatinine Ratio 9, Glucose Level 83, Calcium Level 7.9L, White Blood Count 9.4, Red Blood Count 3.00L, Hemoglobin 9.6L, Hematocrit 29L, Mean Corpuscular Volume 95, Mean Corpuscular Hemoglobin 32, Mean Corpuscula r Hemoglobin Concent 34, Red Cell Distribution Width 14.3, Platelet Count 97L, Mean Platelet Volume 13.4H, Immature Granulocyte % (Auto) 1, Neutrophils (%) (Auto) 74, Lymphocytes (%) (Auto) 16, Monocytes (%) (Auto) 9, Eosinophils (%) (Auto) 0, Basophils (%) (Auto) 0, Neutrophils # (Auto) 6.9, Lymphocytes # (Auto) 1.5, Monocytes # (Auto) 0.9, Eosinophils # (Auto) 0.0, Basophils # (Auto) 0.0, Immature Granulocyte # (Auto) 0.1, Percent Immature Platelet Fraction 11.5H, Corrected Calcium 9.2, Total Bilirubin 2.3H, Aspartate Amino Transf (AST/SGOT) 46H, Alanine Aminotransferase (ALT/SGPT) 44, Alkaline Phosphatase 219H, Total Protein 5.4L, Albumin 2.4L 04/18/21 09:45: Stool Occult Blood Immunoassay NEGATIVE Microbiology 04/16/21 Catheter Tip Culture - Preliminary, Resulted No growth Assessment/Plan Assessment/Plan Assess & Plan/Chief Complaint See problems list Diagnosis/Problems Diagnosis/Problems (1) Thrombocytopenia Onset Date: ~ 04/15/2021 Status: Acute Assessment & Plan: Thrombocytopenia: re-check CBC to monitor platelet levels. C onsult hematology. Also being addressed in plan for severe sepsis treatment. 04/17/2021:Continue to monitor platelet levels with CBC. Levels are improving. Consult hematology. 04/18/2021: Continue to communicate with hematology. Monitor platelet levels; thrombocytopenia suspected to be due to infection. Continue treat plan for suspected pneumonia and infection related to PICC line. (2) Back pain Status: Acute Assessment & Plan: Back pain: resume home medication gabapentin 600mg PO for pain control. Continue fentanyl citrate 25mcg IV for pain control. Monitor for improvement or worsening. Discontinue acetaminophen and ibuprofen due to elevated liver enzymes and renal status. 04/17/2021: Continue with initial plan due to no improvement of back pain. 04/18/2021: Continue treatment plan and monitor for changes in pain. Qualifiers: Qualified Codes: M54.9 - Dorsalgia, unspecified (3) Joint pain Status: Acute Assessment & Plan: Joint pain: resume home medication gabapentin 600mg PO for pain control. Continue fentanyl citrate 25mcg IV for pain control. Joint pain may be associated with severe sepsis. Will continue to monitor for improvement or worsening with treatment/plan for severe sepsis. Discontinue acetaminophen and ibuprofen due to elevated liver enzymes and renal status. 04/17/2021: Continue with initial plan due to no improvement of joint pain. 04/18/2021: Continue treatment plan and monitor for changes in pain. Qualifiers: Qualified Codes: M25.50 - Pain in unspecified joint (4) Elevated liver function tests Status: Acute Assessment & Plan: Elevated liver function tests: re-check liver function labs. MRCP to further evaluate hepatic anatomy. Also being evaluated and treated in severe sepsis assessment and plan. 04/17/2021: Continue to monitor liver enzymes. MRCP came back with no remarkable findings. ALT is within normal limits today at 49. ALP elevated but improved from 225 to 187. AST elevated but improved from 73 to 53. Total bilirubin elevated but improved from 2.3 to 2.0. 04/18/2021: Continue to monitor liver enzymes as levels do not appear to be worsening. Elevation in liver function tests suspected to be a complication from patient's TPN. PICC line has been removed and an oral clear liquid diet has been started and is being tolerated well. (5) HTN (hypertension) Status: Chronic Assessment & Plan: HTN: continue home medications amlodipine 5mg, losartan 100mg, and propanolol 40mg PO for hypertension control. Continue to monitor blood pressure. 04/17/2021: Blood pressure within normal limits today, continue with home medications for blood pressure control. Continue to monitor. 04/18/2021: Continue with home medications and monitoring blood pressure. Qualifiers: Qualified Codes: I10 - Essential (primary) hypertension (6) Fever Status: Acute Assessment & Plan: Fever: being addressed in plan for severe sepsis. Continue to monitor temperature. Discontinue acetaminophen and ibuprofen due to elevated liver enzymes and renal status. Continue sodium chloride 1000ml @ 75ml/hr IV for hydration. 04/17/2021: Max temperature during the past 24hrs is 38.2. Fever is still present but temperature has declined. Continue to monitor. Continue sodium chloride 1000ml @ 75ml/hr IV for hydration. 04/18/2021: Max temperature in the past 24hrs is 39.4. Recent chest CT revealed 5 lobe infiltrates likely secondary to pneumonia. No pulmonary emboli were noted. Hepatosplenomegaly was present as well as small pleural effusions bilaterally. Continue with piperacillin sod/tazobactam sod 4.5gm/sodium chloride 120ml @ 30mls/hr Q8H IV. Beginning anidulafungin 200mg/sodium chloride 250ml @ 82.5mls/hr 1.1 mg/min to cover for possible fungal infection from PICC line an d/or atypical pneumonia since fever is still present with antibiotic treatment alone. Qualifiers: Qualified Codes: R50.9 - Fever, unspecified (7) Head ache Status: Chronic Assessment & Plan: Head ache: Continue fentanyl citrate 25mcg IV and gabapentin mg PO for pain control. Continue sodium chloride 1000ml @ 75ml/hr IV for hydration. 04/17/21: Head ache is not present today. Continue initial plan and monitor. 04/18/2021: Head ache is not present today. Continue to monitor. Qualifiers: Qualified Codes: R51.9 - Headache, unspecified; G89.29 - Other chronic pain (8) Severe sepsis Status: Acute Assessment & Plan: Severe sepsis: Patient meets 2/4 SIRS criteria: elevated temperature and elevated HR. RR within normal limits, leukocytosis not present. End organ damage of the liver could be present with elevated liver function tests. Re-check liver function tests. Re-check CBC for signs of infection/leukocytosis and to monitor thrombocytopenia. Order tick panel to search for tick-borne illness. Continue to monitor vital signs, back pain, and joint pain. Continue piperacillin sod/tazobactam sod 4.5gm/sodium chloride 120ml @ 30ml/hr Q8H IV for empiric infection treatment. Hold TPN from PICC line. 04/17/21: patient seems to be improving today; tachycardia has resolved, fever is still present but temperature is declining, leukocytosis is absent, and RR has remained within normal limits. Continue with piperacillin sod/tazobactam sod 4.5gm/sodium chloride 120ml @ 30ml/hr Q8H IV since fever still persists and source of infection remains unknown. Tick panel is still pending. PICC line has been removed. Liver enzymes improving. Continue to monitor vital signs and pain. 04/18/2021: Elevated temperature suspected to be caused by either infection from PICC line and/or an atypical pneumonia. Recent chest CT revealed 5 lobe infiltrates likely secondary to pneumonia. No pulmonary emboli were noted. Hepatosplenomegaly was present as well as small pleural effusions bilaterally. Continue with piperacillin sod/tazobactam sod 4.5gm/sodium chloride 120ml @ 30mls/hr Q8H IV. Beginning anidulafungin 200mg/sodium chloride 250ml @ 82.5 mls/hr 1.1 mg/min to cover for possible fungal infection from PICC line and/or atypical pneumonia since fever is still present with antibiotic treatment alone. Elevated liver function tests suspected to be a complication of TPN. Tick panel came back negative. (9) D-dimer, elevated Onset Date: ~ 04/16/2021 Status: Acute Assessment & Plan: Elevated D-dimer: assess for possible DVT with doppler US bilaterally. 04/17/2021: doppler US came back negative. DVT ruled-out. Continue to monitor for swelling or change in extremities. 04/18/2021: Recent chest CT revealed no pulmonary emboli. Continue to monitor. (10) Bleeding Status: Chronic Assessment & Plan: 04/18/2021: Stool occult blood test resulted as positive. Bleeding is suspected to be chronic, likely stemming from previous GI procedures or stomach ulcers since hemoglobin level is low but is staying relatively consistent. Continue to monitor hemoglobin levels. (11) GERD with esophagitis Status: Chronic Assessment & Plan: 04/18/2021: Patient resumed a clear liquid diet yesterday and has been tolerating well. Continue pantoprazole sodium 40mg BID PO for GERD and esophagitis prophylaxis. Monitor for signs of pain, discomfort, dysphagia, and esophageal or stomach bleeding. (12) Pneumonia Status: Acute Assessment & Plan: 04/18/2021: Recent chest CT revealed 5 lobe infiltrates likely secondary to pneumonia. No pulmonary emboli were noted. Small pleural effusions bilaterally were present as well. Continue with piperacillin sod/tazobactam sod 4.5gm/sodium chloride 120ml @ 30mls/hr Q8H IV. Started anidulafungin 200mg/sodium chloride 250ml @ 82.5mls/hr 1.1 mg/min to cover for possible fungal infection from PICC line and/or atypical pneumonia since fever is still present with antibiotic treatment alone. Continue fluticasone/salmeterol 1 inhalation RTBID IH and albuterol sulfate 2.5 mg RTQ4H PRN INH for management of shortness of breath. Continue nasal cannula O2 as needed. Continue to monitor for change or worsening of symptoms. Qualifiers: Clinical Quality Measures Admission Status Admission Dx Fever of 103.8 F with pain of back and joints WINNIE JOHNSON MD 04/18/212039: Objective Exam Abdomen: Other (Mild tenderness upon palpation of LUQ and RUQ, no guarding present) Supervisory-Addendum Brief Verification & Attestation Participated in pt care: history, MDM, physical Personally performed: exam, history Care discussed with: Medical Student Procedures: n/a Verification and Attestation of Medical Student E/M Service I personally saw patient and did my own history and exam which confirm the findings documented by the medical student. I reviewed and verified all inf ormation documented by the medical student and made modifications to such information, when appropriate. I personally performed the physical exam and medical decision making. Winnie Johnson, Apr 18, 2021,20:40 SAIRA HORTON Apr 18, 2021 12:28 WINNIE JOHNSON MD Apr 18, 2021 20:40
[2021-04-18] MEDS: PIPERACILLIN/TAZO 4.5 GM/NS 100 ML IV SCH ×4 (13:15→20:48)
[2021-04-18 15:58] VITALS: BP 165/78
--- NOTE | 2021-04-18 16:30 | Progress Note ---
Progress Note Assessment/Plan Date Seen by Provider: Apr 18, 2021 Time Seen by Provider: 16:29 Events since last exam Still spike fever 38.8 and desat last night. CTA of the chest showed multi-lobe infiltration. Plt is upto 97 today. Assessment/Plan IMP: 1. Line related infection. Fever and general malaise, infected PICC line, positive Coryneform bacteria from PICC tip 2. Thrombocytopenia, acute. Most likely due to infection. No major bleeding. Plt improved to 97 today. Pt had normal CBC and CMP 10/2020. 3. Acute elevated LFTs, most likely from the infection. Non-specific wall thickening of the bowel on initial CT scans, but subsequent MRI of liver and ultrasound of the gallbladder were negative. It is improving since the antibiotic treatment. 4. Normal renal function. 5. Multiple gastric surgeries and malnutrition due to poor GI intake. Albumin 2.5 and Pt has been on TPN. Rec: 1. Check CBC every other day. 2. Aggressively treating infection. I would suggest to add anti-fungal and atypical pneumonia coverage. Dr Johnson will need to enter the order if agreeable. 3. Will f/u with you. Vitals Last set of Vitals Signs Vital Signs Date Time Temp Pulse Resp B/P (MAP) Pulse Ox O2 Delivery O2 Flow Rate FiO2 04/18/21 15:58 39.6 105 18 165/78 (107) 92 Nasal Cannula 1.00 04/15/21 18:28 21 I&O I&O Intake and Output 04/18/21 00:00 Intake Total 840 ml Output Total 1400 ml Balance -560 ml Intake Oral 840 ml Output Urine Total 1400 ml # Voids 2 Labs Laboratory Tests 04/18/21 05:11: White Blood Count 9.4, Red Blood Count 3.00L, Hemoglobin 9.6L, Hematocrit 29L, Mean Corpuscular Volume 95, Mean Corpuscular Hemoglobin 32, Mean Corpuscular Hemoglobin Concent 34, Red Cell Distribution Width 14.3, Platelet Count 97L, Mean Platelet Volume 13.4H, Immature Granulocyte % (Auto) 1, Neutrophils (%) (Auto) 74, Lymphocytes (%) (Auto) 16, Monocytes (%) (Auto) 9, Eosinophils (%) (Auto) 0, Basophils (%) (Auto) 0, Neutrophils # (Auto) 6.9, Lymphocytes # (Auto) 1.5, Monocytes # (Auto) 0.9, Eosinophils # (Auto) 0.0, Basophils # (Auto) 0.0, Immature Granulocyte # (Auto) 0.1, Percent Immature Platelet Fraction 11.5H, Sodium Level 136, Potassium Level 2.8L, Chloride Level 105, Carbon Dioxide Level 19L, Anion Gap 12, Blood Urea Nitrogen 5L, Creatinine 0.53L, Estimat Glomerular Filtration Rate 121, BUN/Creatinine Ratio 9, Glucose Level 83, Calcium Level 7.9L, Corrected Calcium 9.2, Total Bilirubin 2.3H, Aspartate Amino Transf (AST/SGOT) 46H, Alanine Aminotransferase (ALT/SGPT) 44, Alkaline Phosphatase 219H, Total Protein 5.4L, Albumin 2.4L 04/18/21 09:45: Stool Occult Blood Immunoassay NEGATIVE Microbiology 04/16/21 Catheter Tip Culture - Preliminary, Resulted No growth VERENA OROPEZA MD Apr 18, 2021 16:30
[2021-04-18 20:00] VITALS: BP 137/74
[2021-04-18] MEDS: amLODIPine 5 MG (NORVASC) TAB PO SCH (20:40)
[2021-04-19] VITALS (8 sets, daily range): BP systolic 117–132; BP diastolic 65–75
[2021-04-19] MEDS: RT-ALBUTEROL SULF 2.5 MG/3 ML PRE-MIX VIAL INH PRN (00:12)
[2021-04-19] MEDS: fentaNYL INJ 100 MCG/2 ML AMP IVP PRN ×5 (00:26→11:17)
[2021-04-19] MEDS: PIPERACILLIN/TAZO 4.5 GM/NS 100 ML IV SCH ×6 (05:17→20:37)
[2021-04-19] MEDS: ACETAMINOPHEN 325 MG TABLET PO PRN ×3 (05:22→23:32)
[2021-04-19] MEDS: RT--FLUTICASONE/SALMETEROL 232-14 (AIRDUO RespiCLICK) IH SCH ×2 (07:48→18:15)
[2021-04-19] MEDS: PANTOPRAZOLE 40 MG (PROTONIX) TAB PO SCH ×2 (08:12→20:36)
[2021-04-19] MEDS: GABAPENTIN 600 MG (NEURONTIN) TAB PO SCH ×3 (08:12→16:48)
[2021-04-19] MEDS: LOSARTAN 100 MG (COZAAR) TABLET PO SCH (08:12)
[2021-04-19] MEDS: PROPRANOLOL 20 MG (INDERAL) TABLET PO SCH ×2 (08:12→20:36)
[2021-04-19] MEDS: ANIDULAFUNGIN INJECTION 100 MG in NS (IVPB) 100 ML IV SCH (09:04)
[2021-04-19] MEDS ORDERED: KCL 20 MEQ TAB (K-DUR) PO ONE (09:45)
[2021-04-19] MEDS: POTASSIUM CL 10MEQ/50ML IVPB 50 ML IV SCH ×6 (09:51→15:57)
[2021-04-19] MEDS ORDERED: NS IV 500 ML 500 ML ONE (11:04)
[2021-04-19] MEDS ORDERED: NS IV 500 ML 500 ML IV ONE (11:15)
[2021-04-19] MEDS: RT-ALBUTEROL SULF 2.5 MG/3 ML PRE-MIX VIAL INH SCH ×4 (11:27→21:34)
[2021-04-19] MEDS ORDERED: RT-ALBUTEROL SULF 2.5 MG/3 ML PRE-MIX VIAL INH PRN (12:00)
[2021-04-19 13:04] LABS: BASOPHILS % (AUTO) 0 % (0-10); EOSINOPHILS % (AUTO) 0 % (0-10); HEMATOCRIT 33 % (35-52); HEMOGLOBIN 10.9 g/dL (11.5-16.0); LYMPHOCYTES # (AUTO) 1.1 10^3/uL (1.0-4.0); LYMPHOCYTES % (AUTO) 12 % (12-44); MEAN CORPUSCULAR HEMOGLOBIN 33 pg (25-34); MEAN CORPUSCULAR HGB CONC 33 g/dL (32-36); MEAN CORPUSCULAR VOLUME 99 fL (80-99); MEAN PLATELET VOLUME 12.1 fL (9.0-12.2); MONOCYTES # (AUTO) 0.5 10^3/uL (0.0-1.0); MONOCYTES % (AUTO) 6 % (0-12); NEUTROPHILS # (AUTO) 7.4 10^3/uL (1.8-7.8); NEUTROPHILS % (AUTO) 81 % (42-75); PLATELET COUNT 206 10^3/uL (130-400); WHITE BLOOD COUNT 9.2 10^3/uL (4.3-11.0)
[2021-04-19 13:17] LABS: ALBUMIN 2.6 GM/DL (3.2-4.5); BILIRUBIN,TOTAL 1.5 MG/DL (0.1-1.0); CALCIUM 8.3 MG/DL (8.5-10.1); CREATININE SERUM 0.67 MG/DL (0.60-1.30); TOTAL PROTEIN 6.2 GM/DL (6.4-8.2)
[2021-04-19 13:28] LABS: POTASSIUM 2.5 MMOL/L (3.6-5.0)
[2021-04-19] MEDS: ONDANSETRON 4 MG/2 ML (SDV) Z0FRAN IVP PRN (14:58)
--- NOTE | 2021-04-19 15:22 | Progress Note ---
SAIRA HORTON 04/19/21 1522: Subjective Date Seen by a Provider: Apr 19, 2021 Time Seen by a Provider: 12:00 Subjective/Events-last exam Today Haley is experiencing aches but denies chills. She states that her pain feels well controlled but would like to begin hydrocodone for pain control ra ther than continue with the fentanyl. She states that it feels like she is getting too much fentanyl for her pain when first given, but then feels as though the medication wears off quickly causing her to feel pain. The acetaminophen is not covering the breakthrough pain she is experiencing. Reports that she has taken hydrocodone in the past and did not experience problems. She denies abdominal pain at rest; states her abdominal pain is slightly better today while active. She inquired when she would be able to go home. Counseled that her medical team is not sure when she will be able to go home at this time. Haley stated that she understands and is compliant. Reports she is tolerating her clear liquid diet well. At the time of visiting Haley this morning her labs had not yet been drawn. Will order labs this afternoon. Review of Systems General: No Chills Pulmonary: Other (shortness of breath) Cardiovascular: No: Chest Pain, Edema Gastrointestinal: Abdominal Pain (Mild LUQ and RUQ pain with activity and upon palpation) Musculoskeletal: back pain Neurological: No: Weakness, Change in speech Objective Exam Last Set of Vital Signs Vital Signs Date Time Temp Pulse Resp B/P (MAP) Pulse Ox O2 Delivery O2 Flow Rate FiO2 04/19/21 14:59 93 Nasal Cannula 2.00 04/19/21 12:00 36.8 90 18 131/75 (93) 04/19/21 07:53 34 Capillary Refill : Less Than 3 Seconds I&O Intake and Output 04/18/21 23:59 Intake Total 2458 ml Output Total 275 ml Balance 2183 ml Intake Oral 1968 ml IV Total 490 ml Output Urine Total 275 ml # Voids 6 # Bowel Movements 2 General: Alert, No Acute Distress HEENT: Atraumatic Lungs: Clear to Auscultation, Normal Air Movement Heart: Regular Rate, Normal S1, Normal S2, No Murmurs Abdomen: Normal Bowel Sounds, Soft, Other (Mild tenderness upon palpation of LUQ and RUQ.) Extremities: No Edema, Normal Pulses, No Tenderness/Swelling Neuro: Normal Speech Psych/Mental Status: Mental Status NL, Mood NL Results Lab Laboratory Tests 04/19/21 12:50: White Blood Count 9.2, Red Blood Count 3.35L, Hemoglobin 10.9L, Hematocrit 33L, Mean Corpuscular Volume 99, Mean Corpuscular Hemoglobin 33, Mean Corpuscular Hemoglobin Concent 33, Red Cell Distribution Width 14.3, Platelet Count 206, Mean Platelet Volume 12.1, Immature Granulocyte % (Auto) 1, Neutrophils (%) (Auto) 81H, Lymphocytes (%) (Auto) 12, Monocytes (%) (Auto) 6, Eosinophils (%) (Auto) 0, Basophils (%) (Auto) 0, Neutrophils # (Auto) 7.4, Lymphocytes # (Auto) 1.1, Monocytes # (Auto) 0.5, Eosinophils # (Auto) 0.0, Basophils # (Auto) 0.0, Immature Granulocyte # (Auto) 0.1, Sodium Level 141, Potassium Level 2.5*L, Chloride Level 104, Carbon Dioxide Level 23, Anion Gap 14, Blood Urea Nitrogen 5L, Creatinine 0.67, Estimat Glomerular Filtration Rate 92, BUN/Creatinine Ratio 7, Glucose Level 189H, Calcium Level 8.3L, Corrected Calcium 9.4, Total Bilirubin 1.5H, Aspartate Amino Transf (AST/SGOT) 55H, Alanine Aminotransferase (ALT/SGPT) 47, Alkaline Phosphatase 221H, Total Protein 6.2L, Albumin 2.6L Microbiology 04/18/21 Blood Culture - Preliminary, Resulted No growth Assessment/Plan Assessment/Plan Assess & Plan/Chief Complaint See problems list Diagnosis/Problems Diagnosis/Problems (1) Thrombocytopenia Onset Date: ~ 04/15/2021 Status: Acute Assessment & Plan: Thrombocytopenia: re-check CBC to monitor platelet levels. Consult hematology. Also being addressed in plan for severe sepsis treatment. 04/17/2021:Continue to monitor platelet levels with CBC. Levels are improving. Consult hematology. 04/18/2021: Continue to communicate with hematology. Monitor platelet levels; thrombocytopenia suspected to be due to infection. Continue treat plan for suspected pneumonia and infection related to PICC line. (2) Back pain Status: Acute Assessment & Plan: Back pain: resume home medication gabapentin 600mg PO for pain control. Continue fentanyl citrate 25mcg IV for pain control. Monitor for improvement or worsening. Discontinue acetaminophen and ibuprofen due to elevated liver enzymes and renal status. 04/17/2021: Continue with initial plan due to no improvement of back pain. 04/18/2021: Continue treatment plan and monitor for changes in pain. : Stop fentanyl citrate and begin oxycodone HCl 5mg Q4H PRN for pain control. Qualifiers: Qualified Codes: M54.9 - Dorsalgia, unspecified (3) Joint pain Status: Acute Assessment & Plan: Joint pain: resume home medication gabapentin 600mg PO for pain control. Continue fentanyl citrate 25mcg IV for pain control. Joint pain may be associated with severe sepsis. Will continue to monitor for improvement or worsening with treatment/plan for severe sepsis. Discontinue acetaminophen and ibuprofen due to elevated liver enzymes and renal status. 04/17/2021: Continue with initial plan due to no improvement of joint pain. 04/18/2021: Continue treatment plan and monitor for changes in pain. 04/19/2021: Stop fentanyl citrate and begin oxycodone HCl 5mg Q4H PRN for pain control. Qualifiers: Qualified Codes: M25.50 - Pain in unspecified joint (4) Elevated liver function tests Status: Acute Assessment & Plan: Elevated liver function tests: re-check liver function labs. MRCP to further evaluate hepatic anatomy. Also being evaluated and treated in severe sepsis assessment and plan. 04/17/2021: Continue to monitor liver enzymes. MRCP came back with no remarkable findings. ALT is within normal limits today at 49. ALP elevated but improved from 225 to 187. AST elevated but improved from 73 to 53. Total bilirubin elevated but improved from 2.3 to 2.0. 04/18/2021: Continue to monitor liver enzymes as levels do not appear to be worsening. Elevation in liver function tests suspected to be a complication from patient's TPN. PICC line has been removed and an oral clear liquid diet has been started and is being tolerated well. (5) HTN (hypertension) Status: Chronic Assessment & Plan: HTN: continue home medications amlodipine 5mg, losartan 100mg, and propanolol 40mg PO for hypertension control. Continue to monitor blood pressure. 04/17/2021: Blood pressure within normal limits today, continue with home medications for blood pressure control. Continue to monitor. 04/18/2021: Continue with home medications and monitoring blood pressure. Qualifiers: Qualified Codes: I10 - Essential (primary) hypertension (6) Fever Status: Acute Assessment & Plan: Fever: being addressed in plan for severe sepsis. Continue to monitor temperature. Discontinue acetaminophen and ibuprofen due to elevated liver enzymes and renal status. Continue sodium chloride 1000ml @ 75ml/hr IV for hydration. 04/17/2021: Max temperature during the past 24hrs is 38.2. Fever is still present but temperature has declined. Continue to monitor. Continue sodium chloride 1000ml @ 75ml/hr IV for hydration. 04/18/2021: Max temperature in the past 24hrs is 39.4. Recent chest CT revealed 5 lobe infiltrates likely secondary to pneumonia. No pulmonary emboli were noted. Hepatosplenomegaly was present as well as small pleural effusions bilaterally. Continue with piperacillin sod/tazobactam sod 4.5gm/sodium chloride 120ml @ 30mls/hr Q8H IV. Beginning anidulafungin 200mg/sodium chloride 250ml @ 82.5mls/hr 1.1 mg/min to cover for possible fungal infection from PICC line and/or atypical pneumonia since fever is still present with antibiotic treatment alone. 04/19/2021: Acetaminophen 650mg Q6H PRN PO for fever reduction. Qualifiers: Qualified Codes: R50.9 - Fever, unspecified (7) Head ache Status: Chronic Assessment & Plan: Head ache: Continue fentanyl citrate 25mcg IV and gabapentin mg PO for pain control. Continue sodium chloride 1000ml @ 75ml/hr IV for hydration. 04/17/21: Head ache is not present today. Continue initial plan and monitor. 04/18/2021: Head ache is not present today. Continue to monitor. Qualifiers: Qualified Codes: R51.9 - Headache, unspecified; G89.29 - Other chronic pain (8) Severe sepsis Status: Acute Assessment & Plan: Severe sepsis: Patient meets 2/4 SIRS criteria: elevated te mperature and elevated HR. RR within normal limits, leukocytosis not present. End organ damage of the liver could be present with elevated liver function tests. Re-check liver function tests. Re-check CBC for signs of infection/leukocytosis and to monitor thrombocytopenia. Order tick panel to search for tick-borne illness. Continue to monitor vital signs, back pain, and joint pain. Continue piperacillin sod/tazobactam sod 4.5gm/sodium chloride 120ml @ 30ml/hr Q8H IV for empiric infection treatment. Hold TPN from PICC line. 04/17/21: patient seems to be improving today; tachycardia has resolved, fever is still present but temperature is declining, leukocytosis is absent, and RR has remained within normal limits. Continue with piperacillin sod/tazobactam sod 4.5gm/sodium chloride 120ml @ 30ml/hr Q8H IV since fever still persists and source of infection remains unknown. Tick panel is still pending. PICC line has been removed. Liver enzymes improving. Continue to monitor vital signs and pain. 04/18/2021: Elevated temperature suspected to be caused by either infection from PICC line and/or an atypical pneumonia. Recent chest CT revealed 5 lobe infiltrates likely secondary to pneumonia. No pulmonary emboli were noted. Hepatosplenomegaly was present as well as small pleural effusions bilaterally. Continue with piperacillin sod/tazobactam sod 4.5gm/sodium chloride 120ml @ 30mls/hr Q8H IV. Beginning anidulafungin 200mg/sodium chloride 250ml @ 82.5mls/hr 1.1 mg/min to cover for possible fungal infection from PICC line and/or atypical pneumonia since fever is still present with antibiotic treatment alone. Elevated liver function tests suspected to be a complication of TPN. Tick panel came back negative. (9) D-dimer, elevated Onset Date: ~ 04/16/2021 Status: Acute Assessment & Plan: Elevated D-dimer: assess for possible DVT with doppler US bilaterally. 04/17/2021: doppler US came back negative. DVT ruled-out. Continue to monitor for swelling or change in extremities. 04/18/2021: Recent chest CT revealed no pulmonary emboli. Continue to monitor. (10) Bleeding Status: Chronic Assessment & Plan: 04/18/2021: Stool occult blood test resulted as positive. Bleeding is suspected to be chronic, likely stemming from previous GI procedures or stomach ulcers since hemoglobin level is low but is staying relatively consistent. Continue to monitor hemoglobin levels. (11) GERD with esophagitis Status: Chronic Assessment & Plan: 04/18/2021: Patient resumed a clear liquid diet yesterday and has been tolerating well. Continue pantoprazole sodium 40mg BID PO for GERD and esophagitis prophylaxis. Monitor for signs of pain, discomfort, dysphagia, and esophageal or stomach bleeding. (12) Pneumonia Status: Acute Assessment & Plan: 04/18/2021: Recent chest CT revealed 5 lobe infiltrates likely secondary to pneumonia. No pulmonary emboli were noted. Small pleural effusions bilaterally were present as well. Continue with piperacillin sod/tazobactam sod 4.5gm/sodium chloride 120ml @ 30mls/hr Q8H IV. Started anidulafungin 200mg/sodium chloride 250ml @ 82.5mls/hr 1.1 mg/min to cover for possible fungal infection from PICC line and/or atypical pneumonia since fever is still present with antibiotic treatment alone. Continue fluticasone/salmeterol 1 inhalation RTBID IH and albuterol sulfate 2.5 mg RTQ4H PRN INH for management of shortness of breath. Continue nasal cannula O2 as needed. Continue to monitor for change or worsening of symptoms. 04/19/2021: Consult e-Pulmonology. Continue to provide breathing treatments and providing supplemental oxygen as needed. Continue anidulafungin and piperacillin/tazobactam. Qualifiers: Clinical Quality Measures Admission Status Admission Dx Fever of 103.8 F with pain of back and joints WINNIE JOHNSON MD 04/19/21 1657: Supervisory-Addendum Brief Verification & Attestation Participated in pt care: history, MDM, physical Personally performed: exam, history, MDM Care discussed with: Medical Student Procedures: n/a Verification and Attestation of Medical Student E/M Service A medical student performed and documented this service in my presence. I reviewed and verified all information documented by the medical student and made modifications to such information, when appropriate. I personally performed the physical exam and medical decision making. Winnie Johnson, Apr 19, 2021,16:57 SAIRA HORTON Apr 19, 2021 15:22 WINNIE JOHNSON MD Apr 19, 2021 16:57
[2021-04-19 17:57] LABS: CALCIUM 8.1 MG/DL (8.5-10.1); CREATININE SERUM 0.56 MG/DL (0.60-1.30); POTASSIUM 3.1 MMOL/L (3.6-5.0)
[2021-04-19] MEDS: amLODIPine 5 MG (NORVASC) TAB PO SCH (20:36)
[2021-04-20] VITALS (7 sets, daily range): BP systolic 116–148; BP diastolic 63–83
[2021-04-20] MEDS: RT-ALBUTEROL SULF 2.5 MG/3 ML PRE-MIX VIAL INH SCH ×3 (02:03→21:25)
[2021-04-20] MEDS: PIPERACILLIN/TAZO 4.5 GM/NS 100 ML IV SCH ×6 (04:00→20:46)
[2021-04-20 06:07] LABS: BASOPHILS % (AUTO) 0 % (0-10); EOSINOPHILS # (AUTO) 0.1 10^3/uL (0.0-0.3); EOSINOPHILS % (AUTO) 1 % (0-10); HEMATOCRIT 28 % (35-52); HEMOGLOBIN 9.1 g/dL (11.5-16.0); LYMPHOCYTES # (AUTO) 1.5 10^3/uL (1.0-4.0); LYMPHOCYTES % (AUTO) 19 % (12-44); MEAN CORPUSCULAR HEMOGLOBIN 32 pg (25-34); MEAN CORPUSCULAR HGB CONC 33 g/dL (32-36); MEAN CORPUSCULAR VOLUME 99 fL (80-99); MEAN PLATELET VOLUME 12.2 fL (9.0-12.2); MONOCYTES # (AUTO) 0.8 10^3/uL (0.0-1.0); MONOCYTES % (AUTO) 10 % (0-12); NEUTROPHILS # (AUTO) 5.5 10^3/uL (1.8-7.8); NEUTROPHILS % (AUTO) 68 % (42-75); PLATELET COUNT 214 10^3/uL (130-400); WHITE BLOOD COUNT 8.2 10^3/uL (4.3-11.0)
[2021-04-20 06:40] LABS: ALBUMIN 2.4 GM/DL (3.2-4.5); CALCIUM 8.1 MG/DL (8.5-10.1); CREATININE SERUM 0.59 MG/DL (0.60-1.30); POTASSIUM 2.8 MMOL/L (3.6-5.0); TOTAL PROTEIN 5.6 GM/DL (6.4-8.2)
[2021-04-20] MEDS: RT--FLUTICASONE/SALMETEROL 232-14 (AIRDUO RespiCLICK) IH SCH ×2 (06:51→21:25)
[2021-04-20] MEDS: LOSARTAN 100 MG (COZAAR) TABLET PO SCH (08:09)
[2021-04-20] MEDS: PROPRANOLOL 20 MG (INDERAL) TABLET PO SCH ×2 (08:09→20:45)
[2021-04-20] MEDS: GABAPENTIN 600 MG (NEURONTIN) TAB PO SCH ×3 (08:09→16:25)
[2021-04-20] MEDS: PANTOPRAZOLE 40 MG (PROTONIX) TAB PO SCH ×2 (08:09→20:45)
--- NOTE | 2021-04-20 09:19 | Pulmonary Consultation ---
History of Present Illness History of Present Illness Date Seen by Provider: Apr 20, 2021 Time Seen by Provider: 09:18 Date of Admission 04/15/2021 Reason for Visit: cough, fever, pneumonia History of Present Illness She is a 55-year-old female with past medical history of morbid obesity for which she underwent gastric bypass surgery x3 and lost weight was apparently in her usual state of health until 2 to 3 years and she started having nausea vomiting intermittently and a gastroscope was done by the surgeon and found to have a gastric outlet obstruction with the narrowing of the outlet. She is a started on TPN to optimize her nutrition and plan for redo surgery. Meanwhile on 04/11/2021 she is started having fever, body aches and a cough. As her symptoms are getting worse she came to the emergency room on 04/14/2021 and she was evaluated for Covid test which came out negative. As her symptoms are getting worse she is admitted on 04/15/2021. She is started on a broad-spectrum antibiotic. However she continues to have a low-grade fever. On 04/18/[address] angiogram of the chest done which did not show any pulmonary emboli however she had a bilateral patchy groundglass and fluffy infiltrate. She is started on Zosyn now in the ER axis without much significant improvement. She also complains of for midsternal pain due to cough. Liver function tests are slightly elevated however her gallbladder ultrasound did not reveal any dilated common bi le duct or evidence of acute cholecystitis. The pulmonary consultation is a requested to assist in the management of this patient. She does have a history of smoking on and off quit a month ago. No history of alcohol abuse or drug abuse. She is currently on oxygen 2 L nasal cannula. Allergies and Home Medications Allergies Coded Allergies: Influenza Virus Vaccines (Verified Allergy, Unknown, 04/15/21) metronidazole (Verified Allergy, Unknown, 04/15/21) Sulfa (Sulfonamide Antibiotics) (Verified Adverse Reaction, Unknown, 04/15/21) Home Medications Acetaminophen 500 Mg Tablet, 1,000 MG PO Q8H PRN for PAIN-MILD (1-4), (Reported) Amlodipine Besylate 5 Mg Tablet, 5 MG PO HS, (Reported) Aspirin/Acetaminophen/Caffeine 1 Each Tablet, 3-4 EACH PO DAILY PRN for HEADACHE, (Reported) Atorvastatin Calcium 20 Mg Tablet, 20 MG PO HS, (Reported) Budesonide/Formoterol Fumarate 10.2 Gm Hfa.aer.ad, 2 PUFF IH BID PRN for SHORTNESS OF BREATH, (Reported) Cholecalciferol (Vitamin D3) 25 Mcg Capsule, 25 MCG PO DAILY, (Reported) Cyanocobalamin (Vitamin B-12) 500 Mcg Tablet, 500 MCG PO DAILY, (Reported) Gabapentin 600 Mg Tablet, 600 MG PO 0800,1200,1700, (Reported) Lorazepam 1 Mg Tablet, 1 MG PO HS PRN for ANXIETY, (Reported) Losartan Potassium 100 Mg Tablet, 100 MG PO DAILY, (Reported) Pantoprazole Sodium 40 Mg Tablet.dr, 40 MG PO BID, (Reported) Promethazine HCl 25 Mg Tablet, 25 MG PO TID PRN for NAUSEA/VOMITING, (Reported) Propranolol HCl 40 Mg Tablet, 40 MG PO BID, (Reported) Tramadol HCl 50 Mg Tablet, 50 MG PO TID PRN for PAIN-MILD (1-4), (Reported) Past Medical/Social/Family Hx Patient Social History Marrital Status: Employed/Student: unemployed Tobacco Use?: No Smoking Status: Current Someday Smoker Smokeless Tobacco Frequency: Never a User Use of E-Cig and/or Vaping dev: No Substance use?: No Alcohol Use?: No Pt stated abuse/neglect: No Immunizations Up To Date Influenza Vaccine Up-to-Date: No; Not Current Tetanus Booster (TDap): Unknown Hepatitis A: No Hepatitis B: No TB Skin Test: None Current Status status: No status: No Advance Directives: No Communicates: Verbally Primary Language: Maltese Preferred Spoken Language: Maltese Is interpretation needed?: No Implanted or Applied Medical D: Central venous access (PICC line in right arm) Past Medical History PMHx: GI ulcers Bowel obstruction from adhesions SurgHx: Hysterectomy Partial gastrectomy from ulcer Lysis of adhesions Appendectomy Review of Systems Constitutional: see HPI Sepsis Event Evaluation Height, Weight, BMI Height: 5'0" Weight: 106lbs. 0.0oz. [id number]; 20.36 BMI Method:Stated Exam Exam Patient acknowledged, consented, and participated in this virtual visit which was conducted using real time audio/video Vital Signs Date Time Temp Pulse Resp B/P (MAP) Pulse Ox O2 Delivery O2 Flow Rate FiO2 04/20/21 08:00 37.0 82 18 148/78 (101) 100 Nasal Cannula 1.00 04/20/21 06:48 99 Nasal Cannula 3.00 04/20/21 04:00 36.6 71 20 129/83 (98) 100 Nasal Cannula 2.00 04/20/21 02:03 91 Nasal Cannula 2.00 04/19/21 23:30 38.2 82 20 118/66 (83) 96 Nasal Cannula 2.00 04/19/21 21:34 92 Nasal Cannula 2.00 04/19/21 20:52 Nasal Cannula 2.00 04/19/21 19:52 37.0 84 20 117/67 (84) 96 Nasal Cannula 2.00 04/19/21 18:12 91 Nasal Cannula 2.00 04/19/21 16:48 38.0 04/19/21 16:22 38.0 82 20 131/69 (89) 97 Nasal Cannula 2.00 04/19/21 14:59 93 Nasal Cannula 2.00 04/19/21 12:00 36.8 90 18 131/75 (93) 98 Nasal Cannula 2.00 04/19/21 11:36 Nasal Cannula 2.00 04/19/21 11:27 95 Nasal Cannula 2.00 I & O 04/20/21 07:00 Intake Total 2242 ml Output Total 2030 ml Balance 212 ml Height & Weight Height: 5'0" Weight: 106lbs. 0.0oz. 48.005639dq; 20.36 BMI Method:Stated General Appearance: No Apparent Distress (Seems uncomfortable due to pain), Thin HEENT: PERRL/EOMI Neck: Full Range of Motion, Normal Inspection, Non Tender, Supple, Other (no meningismus) Respiratory: Lungs Clear, Normal Breath Sounds Cardiovascular: Regular Rate, Rhythm, No Edema, No Gallop, No Murmur Capillary Refill: Less Than 3 Seconds Extremity: No Pedal Edema Neurologic/Psychiatric: Alert, Oriented x3, No Motor/Sensory Deficits, Normal Mood/Affect Skin: Normal Color, Warm/Dry Lymphatic: Other (mild submandibular adenopathy) Results Lab Laboratory Tests 04/19/21 12:50 04/19/21 17:31 04/20/21 05:[address] chest reviewed Assessment/Plan Assessment/Plan 1. Fever, cough, with bilateral patchy groundglass opacities with an underlying malnutrition due to gastric outlet obstruction is suggestive of Covid19 pneumonia in this patient who has not been vaccinated even though initial PCR is negative. 2. Chest pain most likely due to musculoskeletal in origin due to cough. 3. History of gastric outlet obstruction, status post gastric bypass surgery. Recommendations 1. We will repeat Covid19 PCR test 2. We will check inflammatory markers 3. We will change Zosyn to meropenem. 4. We will give symptomatic treatment for cough with Robitussin-AC. 5. Continue to monitor her cultures. 6. Video visit made and discussed with the patient and RN in detail. Critical Care: Critically Ill Patient Time spent with patient (mins): 55 SARAH QUAN MD Apr 20, 2021 09:19
[2021-04-20] MEDS ORDERED: NS IV 1000 ML 1,000 ML IV ONE (09:30)
[2021-04-20] MEDS ORDERED: KCL 20 MEQ TAB (K-DUR) PO ONE (09:30)
[2021-04-20] MEDS: ANIDULAFUNGIN INJECTION 100 MG in NS (IVPB) 100 ML IV SCH (09:52)
[2021-04-20] MEDS: POTASSIUM CL 10MEQ/50ML IVPB 50 ML IV SCH ×8 (09:58→17:27)
[2021-04-20] MEDS: guaiFENesin/CODEINE (ROBITUSSIN AC) 10ML UDC PO PRN ×4 (10:02→22:14)
--- NOTE | 2021-04-20 10:14 | Progress Note ---
Progress Note Assessment/Plan Date Seen by Provider: Apr 20, 2021 Time Seen by Provider: 10:10 Events since last exam Pt still spiked fever last night at 38C. Plt recovered to normal 212k today. CT of chest abd/pelvis showed 5 lobe infiltrates likely secondary to pneumonia. No mediastinal or hilar adenopathy of pathologic size. There is hepatosplenomegaly. She has been on Zosyn IV and then antifungal microfungin was added 2 days ago. LFTs were initial elevated at admission and is getting better now. Assessment/Plan IMP: 1. Line related infection. Fever and general malaise, infected PICC line, positive Coryneform bacteria from PICC tip 2. Thrombocytopenia, acute. Most likely due to infection. No major bleeding. Plt returned to normal 212k now. Pt had normal CBC and CMP 10/2020. 3. Acute elevated LFTs, most likely from the infection. Non-specific wall thickening of the bowel on initial CT scans, but subsequent MRI of liver and ultrasound of the gallbladder were negative. It is improving since the antibiotic treatment. 4. Normal renal function. 5. Multiple gastric surgeries and malnutrition due to poor GI intake. Albumin 2.5 and Pt has been on TPN. 6. Multiple lobe of pneumonia on IV Zosyn over 5 days and microfungin over 48 hrs and still spike fever. 7. Acute heptosplenomegaly ?2nd infection sepsis Rec: 1. From hematology point of view, she does not need any treatment. 2. Aggressively treating infection. I would suggest to add cefepime or meropineum for pneumonia because of still spike fever. If fever still not resolve, you may consider bronchoscope. Dr Johnson will need to enter the order if agreeable. Vitals Last set of Vitals Signs Vital Signs Date Time Temp Pulse Resp B/P (MAP) Pulse Ox O2 Delivery O2 Flow Rate FiO2 04/20/21 08:00 37.0 82 18 148/78 (101) 100 Nasal Cannula 1.00 04/19/21 07:53 34 I&O I&O Intake and Output 04/20/21 00:00 Intake Total 2112 ml Output Total 2730 ml Balance -618 ml Intake Oral 2112 ml Output Urine Total 2730 ml # Bowel Movements 1 Labs Laboratory Tests 04/19/21 12:50: White Blood Count 9.2, Red Blood Count 3.35L, Hemoglobin 10.9L, Hematocrit 33L, Mean Corpuscular Volume 99, Mean Corpuscular Hemoglobin 33, Mean Corpuscular Hemoglobin Concent 33, Red Cell Distribution Width 14.3, Platelet Count 206, Mean Platelet Volume 12.1, Immature Granulocyte % (Auto) 1, Neutrophils (%) (Auto) 81H, Lymphocytes (%) (Auto) 12, Monocytes (%) (Auto) 6, Eosinophils (%) (Auto) 0, Basophils (%) (Auto) 0, Neutrophils # (Auto) 7.4, Lymphocytes # (Auto) 1.1, Monocytes # (Auto) 0.5, Eosinophils # (Auto) 0.0, Basophils # (Auto) 0.0, Immature Granulocyte # (Auto) 0.1, Sodium Level 141, Potassium Level 2.5*L, Chloride Level 104, Carbon Dioxide Level 23, Anion Gap 14, Blood Urea Nitrogen 5L, Creatinine 0.67, Estimat Glomerular Filtration Rate 92, BUN/Creatinine Ratio 7, Glucose Level 189H, Calcium Level 8.3L, Corrected Calcium 9.4, Total Bilirubin 1.5H, Aspartate Amino Transf (AST/SGOT) 55H, Alanine Aminotransferase (ALT/SGPT) 47, Alkaline Phosphatase 221H, Total Protein 6.2L, Albumin 2.6L 04/19/21 17:31: Sodium Level 140, Potassium Level 3.1L, Chloride Level 105, Carbon Dioxide Level 22, Anion Gap 13, Blood Urea Nitrogen 4L, Creatinine 0.56L, Estimat Glomerular Filtration Rate 113, BUN/Creatinine Ratio 7, Glucose Level 115H, Calcium Level 8.1L 04/20/21 05:11: White Blood Count 8.2, Red Blood Count 2.81L, Hemoglobin 9.1L, Hematocrit 28L, Mean Corpuscular Volume 99, Mean Corpuscular Hemoglobin 32, Mean Corpuscular Hemoglobin Concent 33, Red Cell Distribution Width 14.5, Platelet Count 214, Mean Platelet Volume 12.2, Immature Granulocyte % (Auto) 2, Neutrophils (%) (Auto) 68, Lymphocytes (%) (Auto) 19, Monocytes (%) (Auto) 10, Eosinophils (%) (Auto) 1, Basophils (%) (Auto) 0, Neutrophils # (Auto) 5.5, Lymphocytes # (Auto) 1.5, Monocytes # (Auto) 0.8, Eosinophils # (Auto) 0.1, Basophils # (Auto) 0.0, Immature Granulocyte # (Auto) 0.1, Sodium Level 141, Potassium Level 2.8L, Chloride Level 105, Carbon Dioxide Level 26, Anion Gap 10, Blood Urea Nitrogen 4L, Creatinine 0.59L, Estimat Glomerular Filtration Rate 107, BUN/Creatinine Ratio 7, Glucose Level 107H, Calcium Level 8.1L, Corrected Calcium 9.4, Total Bilirubin 1.0, Aspartate Amino Transf (AST/SGOT) 45H, Alanine Aminotransferase (ALT/SGPT) 46, Alkaline Phosphatase 200H, Total Protein 5.6L, Albumin 2.4L Microbiology 04/18/21 Blood Culture - Preliminary, Resulted No growth VERENA OROPEZA MD Apr 20, 2021 10:14
[2021-04-20] MEDS: ACETAMINOPHEN 325 MG TABLET PO PRN ×2 (11:50→20:46)
[2021-04-20] MEDS ORDERED: SALINE NASAL SPRAY (OCEAN) 45 ML BTL PRN (16:15)
--- NOTE | 2021-04-20 16:38 | Progress Note ---
SAIRA HORTON 04/20/21 1638: Subjective Date Seen by a Provider: Apr 20, 2021 Time Seen by a Provider: 11:45 Subjective/Events-last exam Haley did not sleep well last night. She is experiencing shortness of breath and pain associated with her anterior ribs and deep to her mediastinum. She reports the pain occurs with coughing and taking deep breaths. States that the pain feels muscular. The shortness of breath is worse this morning than it was last night. Supplemental oxygen and the breathing treatments seem to help. Her abdominal pain is continuing to get better; mild-moderate tenderness. Requested nasal saline to help with some congestion. Patient stated that she does not want to do TPN again for nutritional support. Clear liquid diet is still well tolerated; unable to swallow solids and would like to stay on clear liquid diet. Discussed with patient the possible need for a feeding tube to help treat malnutrition and to aid in replacing her potassium. Review of Systems HEENT: No Head Aches Pulmonary: Cough (from breathing treatment and sporadically) Cardiovascular: No: Chest Pain, Edema Gastrointestinal: Abdominal Pain (Mild-moderate RUQ and LUQ tenderness upon palpation) Objective Exam Last Set of Vital Signs Vital Signs Date Time Temp Pulse Resp B/P (MAP) Pulse Ox O2 Delivery O2 Flow Rate FiO2 04/20/21 15:32 36.2 81 22 136/69 (91) 96 Nasal Cannula 1.00 04/19/21 07:53 34 Capillary Refill : Less Than 3 Seconds I&O Intake and Output 04/20/21 00:00 Intake Total 2112 ml Output Total 2730 ml Balance -618 ml Intake Oral 2112 ml Output Urine Total 2730 ml # Bowel Movements 1 General: Alert, Cooperative, No Acute Distress HEENT: Atraumatic Lungs: Clear to Auscultation (rales in bilateral bases of lungs), Normal Air Movement Heart: Regular Rate, Normal S1, Normal S2, No Murmurs Abdomen: Normal Bowel Sounds, Soft, Other (mild-moderate tenderness of RUQ and LUQ with palpation) Extremities: No Edema, Normal Pulses (pedal pulses +2 bilaterally) Neuro: Normal Speech Results Lab Laboratory Tests 04/19/21 17:31: Sodium Level 140, Potassium Level 3.1L, Chloride Level 105, Carbon Dioxide Level 22, Anion Gap 13, Blood Urea Nitrogen 4L, Creatinine 0.56L, Estimat Glomerular Filtration Rate 113, BUN/Creatinine Ratio 7, Glucose Level 115H, Calcium Level 8.1L 04/20/21 05:11: Sodium Level 141, Potassium Level 2.8L, Chloride Level 105, Carbon Dioxide Level 26, Anion Gap 10, Blood Urea Nitrogen 4L, Creatinine 0.59L, Estimat Glomerular Filtration Rate 107, BUN/Creatinine Ratio 7, Glucose Level 107H, Calcium Level 8.1L, White Blood Count 8.2, Red Blood Count 2.81L, Hemoglobin 9.1L, Hematocrit 28L, Mean Corpuscular Volume 99, Mean Corpuscular Hemoglobin 32, Mean Corpuscular Hemoglobin Concent 33, Red Cell Distribution Width 14.5, Platelet Count 214, Mean Platelet Volume 12.2, Immature Granulocyte % (Auto) 2, Neutrophils (%) (Auto) 68, Lymphocytes (%) (Auto) 19, Monocytes (%) (Auto) 10, Eosinophils (%) (Auto) 1, Basophils (%) (Auto) 0, Neutrophils # (Auto) 5.5, Lymphocytes # (Auto) 1.5, Monocytes # (Auto) 0.8, Eosinophils # (Auto) 0.1, Basophils # (Auto) 0.0, Immature Granulocyte # (Auto) 0.1, Corrected Calcium 9.4, Magnesium Level 2.0, Total Bilirubin 1.0, Aspartate Amino Transf (AST/SGOT) 45H, Alanine Aminotransferase (ALT/SGPT) 46, Alkaline Phosphatase 200H, Total Protein 5.6L, Albumin 2.4L 04/20/21 10:04: Microbiology 04/18/21 Blood Culture - Preliminary, Resulted No growth Assessment/Plan Assessment/Plan Assess & Plan/Chief Complaint See problems list Diagnosis/Problems Diagnosis/Problems (1) Thrombocytopenia Onset Date: ~ 04/15/2021 Status: Acute Assessment & Plan: Thrombocytopenia: re-check CBC to monitor platelet levels. Consult hematology. Also being addressed in plan for severe sepsis treatment. 04/17/2021:Continue to monitor platelet levels with CBC. Levels are improving. Consult hematology. 04/18/2021: Continue to communicate with hematology. Monitor platelet levels; thrombocytopenia suspected to be due to infection. Continue treat plan for suspected pneumonia and infection related to PICC line. (2) Back pain Status: Acute Assessment & Plan: Back pain: resume home medication gabapentin 600mg PO for pain control. Continue fentanyl citrate 25mcg IV for pain control. Monitor for improvement or worsening. Discontinue acetaminophen and ibuprofen due to elevated liver enzymes and renal status. 04/17/2021: Continue with initial plan due to no improvement of back pain. 04/18/2021: Continue treatment plan and monitor for changes in pain. : Stop fentanyl citrate and begin oxycodone HCl 5mg Q4H PRN for pain control. Qualifiers: Qualified Codes: M54.9 - Dorsalgia, unspecified (3) Joint pain Status: Acute Assessment & Plan: Joint pain: resume home medication gabapentin 600mg PO for pain control. Continue fentanyl citrate 25mcg IV for pain control. Joint pain may be associated with severe sepsis. Will continue to monitor for improvement o r worsening with treatment/plan for severe sepsis. Discontinue acetaminophen and ibuprofen due to elevated liver enzymes and renal status. 04/17/2021: Continue with initial plan due to no improvement of joint pain. 04/18/2021: Continue treatment plan and monitor for changes in pain. 04/19/2021: Stop fentanyl citrate and begin oxycodone HCl 5mg Q4H PRN for pain control. Qualifiers: Qualified Codes: M25.50 - Pain in unspecified joint (4) Elevated liver function tests Status: Acute Assessment & Plan: Elevated liver function tests: re-check liver function labs. MRCP to further evaluate hepatic anatomy. Also being evaluated and treated in severe sepsis assessment and plan. 04/17/2021: Continue to monitor liver enzymes. MRCP came back with no remarkable findings. ALT is within normal limits today at 49. ALP elevated but improved from 225 to 187. AST elevated but improved from 73 to 53. Total bilirubin elevated but improved from 2.3 to 2.0. 04/18/2021: Continue to monitor liver enzymes as levels do not appear to be worsening. Elevation in liver function tests suspected to be a complication from patient's TPN. PICC line has been removed and an oral clear liquid diet has been started and is being tolerated well. (5) HTN (hypertension) Status: Chronic Assessment & Plan: HTN: continue home medications amlodipine 5mg, losartan 100mg, and propanolol 40mg PO for hypertension control. Continue to monitor blood pressure. 04/17/2021: Blood pressure within normal limits today, continue with home med ications for blood pressure control. Continue to monitor. 04/18/2021: Continue with home medications and monitoring blood pressure. Qualifiers: Qualified Codes: I10 - Essential (primary) hypertension (6) Fever Status: Acute Assessment & Plan: Fever: being addressed in plan for severe sepsis. Continue t o monitor temperature. Discontinue acetaminophen and ibuprofen due to elevated liver enzymes and renal status. Continue sodium chloride 1000ml @ 75ml/hr IV for hydration. 04/17/2021: Max temperature during the past 24hrs is 38.2. Fever is still present but temperature has declined. Continue to monitor. Continue sodium chloride 1000ml @ 75ml/hr IV for hydration. 04/18/2021: Max temperature in the past 24hrs is 39.4. Recent chest CT revealed 5 lobe infiltrates likely secondary to pneumonia. No pulmonary emboli were noted. Hepatosplenomegaly was present as well as small pleural effusions bilaterally. Continue with piperacillin sod/tazobactam sod 4.5gm/sodium chloride 120ml @ 30mls/hr Q8H IV. Beginning anidulafungin 200mg/sodium chloride 250ml @ 82.5mls/hr 1.1 mg/min to cover for possible fungal infection from PICC line and/or atypical pneumonia since fever is still present with antibiotic treatment alone. 04/19/2021: Acetaminophen 650mg Q6H PRN PO for fever reduction. Qualifiers: Qualified Codes: R50.9 - Fever, unspecified (7) Head ache Status: Chronic Assessment & Plan: Head ache: Continue fentanyl citrate 25mcg IV and gabapentin mg PO for pain control. Continue sodium chloride 1000ml @ 75ml/hr IV for hydration. 04/17/21: Head ache is not present today. Continue initial plan and monitor. 04/18/2021: Head ache is not present today. Continue to monitor. Qualifiers: Qualified Codes: R51.9 - Headache, unspecified; G89.29 - Other chronic pain (8) Severe sepsis Status: Acute Assessment & Plan: Severe sepsis: Patient meets 2/4 SIRS criteria: elevated temperature and elevated HR. RR within normal limits, leukocytosis not present. End organ damage of the liver could be present with elevated liver function tests. Re-check liver function tests. Re-check CBC for signs of infection/leukocytosis and to monitor thrombocytopenia. Order tick panel to search for tick-borne illness. Continue to monitor vital signs, back pain, and joint pain. Continue piperacillin sod/tazobactam sod 4.5gm/sodium chloride 120ml @ 30ml/hr Q8H IV for empiric infection treatment. Hold TPN from PICC line. 04/17/21: patient seems to be improving today; tachycardia has resolved, fever is still present but temperature is declining, leukocytosis is absent, and RR has remained within normal limits. Continue with piperacillin sod/tazobactam sod 4.5gm/sodium chloride 120ml @ 30ml/hr Q8H IV since fever still persists and source of infection remains unknown. Tick panel is still pending. PICC line has been removed. Liver enzymes improving. Continue to monitor vital signs and pain. 04/18/2021: Elevated temperature suspected to be caused by either infection from PICC line and/or an atypical pneumonia. Recent chest CT revealed 5 lobe infiltrates likely secondary to pneumonia. No pulmonary emboli were noted. Hepatosplenomegaly was present as well as small pleural effusions bilaterally. Continue with piperacillin sod/tazobactam sod 4.5gm/sodium chloride 120ml @ 30mls/hr Q8H IV. Beginning anidulafungin 200mg/sodium chloride 250ml @ 8 2.5mls/hr 1.1 mg/min to cover for possible fungal infection from PICC line and/or atypical pneumonia since fever is still present with antibiotic treatment alone. Elevated liver function tests suspected to be a complication of TPN. Tick panel came back negative. (9) D-dimer, elevated Onset Date: ~ 04/16/2021 Status: Acute Assessment & Plan: Elevated D-dimer: assess for possible DVT with doppler US bilaterally. 04/17/2021: doppler US came back negative. DVT ruled-out. Continue to monitor for swelling or change in extremities. 04/18/2021: Recent chest CT revealed no pulmonary emboli. Continue to monitor. (10) Bleeding Status: Chronic Assessment & Plan: 04/18/2021: Stool occult blood test resulted as positive. Bleeding is suspected to be chronic, likely stemming from previous GI procedures or stomach ulcers since hemoglobin level is low but is staying relatively consistent. Continue to monitor hemoglobin levels. (11) GERD with esophagitis Status: Chronic Assessment & Plan: 04/18/2021: Patient resumed a clear liquid diet yesterday and has been tolerating well. Continue pantoprazole sodium 40mg BID PO for GERD and esophagitis prophylaxis. Monitor for signs of pain, discomfort, dysphagia, and esophageal or stomach bleeding. (12) Pneumonia Status: Acute Assessment & Plan: 04/18/2021: Recent chest CT revealed 5 lobe infiltrates likely secondary to pneumonia. No pulmonary emboli were noted. Small pleural effusions bilaterally were present as well. Continue with piperacillin sod/erin obactam sod 4.5gm/sodium chloride 120ml @ 30mls/hr Q8H IV. Started anidulafungin 200mg/sodium chloride 250ml @ 82.5mls/hr 1.1 mg/min to cover for possible fungal infection from PICC line and/or atypical pneumonia since fever is still present with antibiotic treatment alone. Continue fluticasone/salmeterol 1 inhalation RTBID IH and albuterol sulfate 2.5 mg RTQ4H PRN INH for management of shortness of breath. Continue nasal cannula O2 as needed. Continue to monitor for change or worsening of symptoms. 04/19/2021: Consult e-Pulmonology. Continue to provide breathing treatments and providing supplemental oxygen as needed. Continue anidulafungin and piperacillin/tazobactam. Qualifiers: (13) Malnutrition Status: Chronic Assessment & Plan: Consult contact lens technician. Patient is following with surgeon in outpatient setting for abdominal/gastric surgery needs. They placed the PICC line for TPN. PICC line has been removed, patient does not want to resume TPN for nutritional support. Discussed possibility of having a feeding tube placed. Continue to replace potassium. Continue to monitor electrolytes. Qualifiers: Qualified Codes: E46 - Unspecified protein-calorie malnutrition Clinical Quality Measures Admission Status Admission Dx Fever of 103.8 F with pain of back and joints WINNIE JOHNSON MD 04/20/21 1725: Supervisory-Addendum Brief Verification & Attestation Participated in pt care: history, MDM, physical Personally performed: exam, history Care discussed with: Medical Student Procedures: n/a Verification and Attestation of Medical Student E/M Service I personally obtained history and did my own exam which confirmed that documented by the medical student. I reviewed and verified all information documented by the medical student and made modifications to such information, when appropriate. I personally performed the physical exam and medical decision making. Winnie Johnson, Apr 20, 2021,17:25 SAIRA HORTON Apr 20, 2021 16:38 WINNIE JOHNSON MD Apr 20, 2021 17:25
[2021-04-20] MEDS: amLODIPine 5 MG (NORVASC) TAB PO SCH (20:45)
[2021-04-21] MEDS: guaiFENesin/CODEINE (ROBITUSSIN AC) 10ML UDC PO PRN ×3 (02:38→21:54)
[2021-04-21 04:00] VITALS: BP 137/67
[2021-04-21] MEDS: PIPERACILLIN/TAZO 4.5 GM/NS 100 ML IV SCH ×2 (05:02)
[2021-04-21 05:40] LABS: BASOPHILS % (AUTO) 0 % (0-10); EOSINOPHILS # (AUTO) 0.1 10^3/uL (0.0-0.3); EOSINOPHILS % (AUTO) 1 % (0-10); HEMATOCRIT 29 % (35-52); HEMOGLOBIN 8.9 g/dL (11.5-16.0); LYMPHOCYTES # (AUTO) 1.3 10^3/uL (1.0-4.0); LYMPHOCYTES % (AUTO) 19 % (12-44); MEAN CORPUSCULAR HEMOGLOBIN 31 pg (25-34); MEAN CORPUSCULAR HGB CONC 31 g/dL (32-36); MEAN CORPUSCULAR VOLUME 101 fL (80-99); MEAN PLATELET VOLUME 11.3 fL (9.0-12.2); MONOCYTES # (AUTO) 0.6 10^3/uL (0.0-1.0); MONOCYTES % (AUTO) 9 % (0-12); NEUTROPHILS # (AUTO) 4.6 10^3/uL (1.8-7.8); NEUTROPHILS % (AUTO) 69 % (42-75); PLATELET COUNT 281 10^3/uL (130-400); WHITE BLOOD COUNT 6.7 10^3/uL (4.3-11.0)
[2021-04-21 05:49] LABS: ALBUMIN 2.5 GM/DL (3.2-4.5)
[2021-04-21 05:50] LABS: CALCIUM 8.4 MG/DL (8.5-10.1)
[2021-04-21 05:51] LABS: TOTAL PROTEIN 5.8 GM/DL (6.4-8.2)
[2021-04-21 05:53] LABS: BILIRUBIN,TOTAL 0.8 MG/DL (0.1-1.0)
[2021-04-21 05:55] LABS: CREATININE SERUM 0.52 MG/DL (0.60-1.30)
[2021-04-21 07:53] VITALS: BP 129/65
[2021-04-21] MEDS: RT-ALBUTEROL SULF 2.5 MG/3 ML PRE-MIX VIAL INH SCH ×2 (08:14→20:58)
[2021-04-21] MEDS: RT--FLUTICASONE/SALMETEROL 232-14 (AIRDUO RespiCLICK) IH SCH ×2 (08:15→20:58)
[2021-04-21] MEDS: GABAPENTIN 600 MG (NEURONTIN) TAB PO SCH ×3 (08:42→15:58)
[2021-04-21] MEDS: PROPRANOLOL 20 MG (INDERAL) TABLET PO SCH ×2 (08:42→19:52)
[2021-04-21] MEDS: PANTOPRAZOLE 40 MG (PROTONIX) TAB PO SCH ×2 (08:42→19:52)
[2021-04-21] MEDS: LOSARTAN 100 MG (COZAAR) TABLET PO SCH (08:42)
[2021-04-21] MEDS: MAGNESIUM 1 GM/100 ML IVPB 100 ML IV SCH ×2 (09:13→10:54)
[2021-04-21] MEDS: POTASSIUM CL 10MEQ/50ML IVPB 50 ML IV SCH ×8 (09:13→17:27)
--- NOTE | 2021-04-21 10:28 | Progress Note - Hospitalist ---
Subjective HPI/CC On Admission Date Seen by Provider: Apr 21, 2021 Time Seen by Provider: 12:00 Subjective/Events-last exam Patient feeling much better Labs reviewed Eating a bit No TPN patient refused Getting out of bed Review of Systems General: Fatigue Objective Exam Vital Signs Vital Signs Date Time Temp Pulse Resp B/P (MAP) Pulse Ox O2 Delivery O2 Flow Rate FiO2 04/22/21 04:43 36.4 84 20 132/77 (95) 99 Nasal Cannula 1.00 04/19/21 07:53 34 Capillary Refill : Less Than 3 Seconds General Appearance: No Apparent Distress, WD/WN, Chronically ill, Thin Respiratory: Lungs Clear, Normal Breath Sounds Cardiovascular: Regular Rate, Rhythm Neurologic/Psychiatric: Alert, Oriented x3 Results/Procedures Lab Patient resulted labs reviewed. Assessment/Plan Assessment and Plan Assess & Plan/Chief Complaint Assessment: (1) Thrombocytopenia Onset Date: ~ 04/15/2021 Status: Acute Assessment & Plan: Thrombocytopenia: re-check CBC to monitor platelet levels. Consult hematology. Also being addressed in plan for severe sepsis treatment. 04/17/2021:Continue to monitor platelet levels with CBC. Levels are improving. Consult hematology. 04/18/2021: Continue to communicate with hematology. Monitor platelet levels; thrombocytopenia suspected to be due to infection. Continue treat plan for suspected pneumonia and infection related to PICC line. (2) Back pain Status: Acute Assessment & Plan: Back pain: resume home medication gabapentin 600mg PO for pain control. Continue fentanyl citrate 25mcg IV for pain control. Monitor for improvement or worsening. Discontinue acetaminophen and ibuprofen due to elevated liver enzymes and renal status. 04/17/2021: Continue with initial plan due to no improvement of back pain. 04/18/2021: Continue treatment plan and monitor for changes in pain. : Stop fentanyl citrate and begin oxycodone HCl 5mg Q4H PRN for pain control. Qualifiers: Qualified Codes: M54.9 - Dorsalgia, unspecified (3) Joint pain Status: Acute Assessment & Plan: Joint pain: resume home medication gabapentin 600mg PO for pain control. Continue fentanyl citrate 25mcg IV for pain control. Joint pain may be associated with severe sepsis. Will continue to monitor for improvement or worsening with treatment/plan for severe sepsis. Discontinue acetaminophen and ibuprofen due to elevated liver enzymes and renal status. 04/17/2021: Continue with initial plan due to no improvement of joint pain. 04/18/2021: Continue treatment plan and monitor for changes in pain. 04/19/2021: Stop fentanyl citrate and begin oxycodone HCl 5mg Q4H PRN for pain control. Qualifiers: Qualified Codes: M25.50 - Pain in unspecified joint (4) Elevated liver function tests Status: Acute Assessment & Plan: Elevated liver function tests: re-check liver function labs. MRCP to further evaluate hepatic anatomy. Also being evaluated and treated in severe sepsis assessment and plan. 04/17/2021: Continue to monitor liver enzymes. MRCP came back with no remarkable findings. ALT is within normal limits today at 49. ALP elevated but improved from 225 to 187. AST elevated but improved from 73 to 53. Total bilirubin elevated but improved from 2.3 to 2.0. 04/18/2021: Continue to monitor liver enzymes as levels do not appear to be worsening. Elevation in liver function tests suspected to be a complication from patient's TPN. PICC line has been removed and an oral clear liquid diet has been started and is being tolerated well. (5) HTN (hypertension) Status: Chronic Assessment & Plan: HTN: continue home medications amlodipine 5mg, losartan 100mg, and propanolol 40mg PO for hypertension control. Continue to monitor blood pressure. 04/17/2021: Blood pressure within normal limits today, continue with home medications for blood pressure control. Continue to monitor. 04/18/2021: Continue with home medications and monitoring blood pressure. Qualifiers: Qualified Codes: I10 - Essential (primary) hypertension (6) Fever Status: Acute Assessment & Plan: Fever: being addressed in plan for severe sepsis. Continue to monitor temperature. Discontinue acetaminophen and ibuprofen due to elevated liver enzymes and renal status. Continue sodium chloride 1000ml @ 75ml/hr IV for hydration. 04/17/2021: Max temperature during the past 24hrs is 38.2. Fever is still present but temperature has declined. Continue to monitor. Continue sodium chloride 1000ml @ 75ml/hr IV for hydration. 04/18/2021: Max temperature in the past 24hrs is 39.4. Recent chest CT revealed 5 lobe infiltrates likely secondary to pneumonia. No pulmonary emboli were noted. Hepatosplenomegaly was present as well as small pleural effusions bilaterally. Continue with piperacillin sod/tazobactam sod 4.5gm/sodium chloride 120ml @ 30mls/hr Q8H IV. Beginning anidulafungin 200mg/sodium chloride 250ml @ 82.5mls/hr 1.1 mg/min to cover for possible fungal infection from PICC line and/or atypical pneumonia since fever is still present with antibiotic treatment alone. 04/19/2021: Acetaminophen 650mg Q6H PRN PO for fever reduction. Qualifiers: Qualified Codes: R50.9 - Fever, unspecified (7) Head ache Status: Chronic Assessment & Plan: Head ache: Continue fentanyl citrate 25mcg IV and gabapentin mg PO for pain control. Continue sodium chloride 1000ml @ 75ml/hr IV for hydration. 04/17/21: Head ache is not present today. Continue initial plan and monitor. 04/18/2021: Head ache is not present today. Continue to monitor. Qualifiers: Qualified Codes: R51.9 - Headache, unspecified; G89.29 - Other chronic pain (8) Severe sepsis Status: Acute Assessment & Plan: Severe sepsis: Patient meets 2/4 SIRS criteria: elevated temperature and elevated HR. RR within normal limits, leukocytosis not present. End organ damage of the liver could be present with elevated liver function tests. Re-check liver function tests. Re-check CBC for signs of infection/le ukocytosis and to monitor thrombocytopenia. Order tick panel to search for tick- borne illness. Continue to monitor vital signs, back pain, and joint pain. Continue piperacillin sod/tazobactam sod 4.5gm/sodium chloride 120ml @ 30ml/hr Q8H IV for empiric infection treatment. Hold TPN from PICC line. 04/17/21: patient seems to be improving today; tachycardia has resolved, fever is still present but temperature is declining, leukocytosis is absent, and RR has remained within normal limits. Continue with piperacillin sod/tazobactam sod 4.5gm/sodium chloride 120ml @ 30ml/hr Q8H IV since fever still persists and source of infection remains unknown. Tick panel is still pending. PICC line has been removed. Liver enzymes improving. Continue to monitor vital signs and pain. 04/18/2021: Elevated temperature suspected to be caused by either infection from PICC line and/or an atypical pneumonia. Recent chest CT revealed 5 lobe infiltrates likely secondary to pneumonia. No pulmonary emboli were noted. Hepatosplenomegaly was present as well as small pleural effusions bilaterally. Continue with piperacillin sod/tazobactam sod 4.5gm/sodium chloride 120ml @ 30mls/hr Q8H IV. Beginning anidulafungin 200mg/sodium chloride 250ml @ 82.5mls/hr 1.1 mg/min to cover for possible fungal infection from PICC line and/or atypical pneumonia since fever is still present with antibiotic treatment alone. Elevated liver function tests suspected to be a complication of TPN. Tick panel came back negative. (9) D-dimer, elevated Onset Date: ~ 04/16/2021 Status: Acute Assessment & Plan: Elevated D-dimer: assess for possible DVT with doppler US bilaterally. 04/17/2021: doppler US came back negative. DVT ruled-out. Continue to monitor for swelling or change in extremities. 04/18/2021: Recent chest CT revealed no pulmonary emboli. Continue to monitor. (10) Bleeding Status: Chronic Assessment & Plan: 04/18/2021: Stool occult blood test resulted as positive. Bleeding is suspected to be chronic, likely stemming from previous GI procedures or stomach ulcers since hemoglobin level is low but is staying relatively consistent. Continue to monitor hemoglobin levels. (11) GERD with esophagitis Status: Chronic Assessment & Plan: 04/18/2021: Patient resumed a clear liquid diet yesterday and has been tolerating well. Continue pantoprazole sodium 40mg BID PO for GERD and esophagitis prophylaxis. Monitor for signs of pain, discomfort, dysphagia, and esophageal or stomach bleeding. (12) Pneumonia Status: Acute Assessment & Plan: 04/18/2021: Recent chest CT revealed 5 lobe infiltrates likely secondary to pneumonia. No pulmonary emboli were noted. Small pleural effusions bilaterally were present as well. Continue with piperacillin sod/tazobactam sod 4.5gm/sodium chloride 120ml @ 30mls/hr Q8H IV. Started anidulafungin 200mg/sodium chloride 250ml @ 82.5mls/hr 1.1 mg/min to cover for possible fungal infection from PICC line and/or atypical pneumonia since fever is still present with antibiotic treatment alone. Continue fluticasone/salmeterol 1 inhalation RTBID IH and albuterol sulfate 2.5 mg RTQ4H PRN INH for management of shortness of breath. Continue nasal cannula O2 as needed. Continue to monitor for change or worsening of symptoms. 04/19/2021: Consult e-Pulmonology. Continue to provide breathing treatments and providing supplemental oxygen as needed. Continue anidulafungin and piperacillin/tazobactam. Qualifiers: (13) Malnutrition Status: Chronic Assessment & Plan: Consult world renowned chef and restaurant owner. Patient is following with surgeon in outpatient setting for abdominal/gastric surgery needs. They placed the PICC line for TPN. PICC line has been removed, patient does not want to resume TPN for nutritional support. Discussed possibility of having a feeding tube placed. Continue to replace potassium. Continue to monitor electrolytes. Qualifiers: Qualified Codes: E46 - Unspecified protein-calorie malnutrition Plan: Supportive care Monitor labs Ambulate Critical Care Critically Ill Patient JENNYFER PELAYO DO Apr 21, 2021 10:28
[2021-04-21] MEDS: ANIDULAFUNGIN INJECTION 100 MG in NS (IVPB) 100 ML IV SCH (10:38)
[2021-04-21 12:05] VITALS: BP 123/75
[2021-04-21] MEDS ORDERED: NS IV 1000 ML 1,000 ML IV PRN (14:45)
[2021-04-21 16:00] VITALS: BP 137/78
[2021-04-21 19:40] VITALS: BP 134/71
[2021-04-21] MEDS: amLODIPine 5 MG (NORVASC) TAB PO SCH (19:52)
[2021-04-21] MEDS: ACETAMINOPHEN 325 MG TABLET PO PRN (19:52)
[2021-04-21 23:34] VITALS: BP 137/75
[2021-04-22 04:43] VITALS: BP 132/77
[2021-04-22 06:34] LABS: BASOPHILS % (AUTO) 0 % (0-10); EOSINOPHILS # (AUTO) 0.1 10^3/uL (0.0-0.3); EOSINOPHILS % (AUTO) 1 % (0-10); HEMATOCRIT 30 % (35-52); HEMOGLOBIN 9.4 g/dL (11.5-16.0); LYMPHOCYTES # (AUTO) 1.3 10^3/uL (1.0-4.0); LYMPHOCYTES % (AUTO) 15 % (12-44); MEAN CORPUSCULAR HEMOGLOBIN 32 pg (25-34); MEAN CORPUSCULAR HGB CONC 32 g/dL (32-36); MEAN CORPUSCULAR VOLUME 100 fL (80-99); MEAN PLATELET VOLUME 10.8 fL (9.0-12.2); MONOCYTES # (AUTO) 0.8 10^3/uL (0.0-1.0); MONOCYTES % (AUTO) 9 % (0-12); NEUTROPHILS # (AUTO) 6.5 10^3/uL (1.8-7.8); NEUTROPHILS % (AUTO) 74 % (42-75); PLATELET COUNT 352 10^3/uL (130-400); WHITE BLOOD COUNT 8.8 10^3/uL (4.3-11.0)
--- NOTE | 2021-04-22 06:37 | Progress Note - Hospitalist ---
Subjective HPI/CC On Admission Date Seen by Provider: Apr 22, 2021 Time Seen by Provider: 12:00 Subjective/Events-last exam Patient doing well Ran a temperature last night but decreased with Tylenol Supplementing potassium Blood pressure labile Check meds and labs Review of Systems General: Fatigue, Malaise Objective Exam Vital Signs Vital Signs Date Time Temp Pulse Resp B/P (MAP) Pulse Ox O2 Delivery O2 Flow Rate FiO2 04/23/21 04:06 36.0 67 18 117/76 (90) 100 Room Air 04/22/21 21:06 1.00 04/19/21 07:53 34 Capillary Refill : Less Than 3 Seconds General Appearance: No Apparent Distress, WD/WN, Chronically ill, Thin Respiratory: Lungs Clear, Normal Breath Sounds Cardiovascular: Regular Rate, Rhythm Neurologic/Psychiatric: Alert, Oriented x3, No Motor/Sensory Deficits, Normal Mood/Affect Results/Procedures Lab Laboratory Tests 04/22/21 06:00 Patient resulted labs reviewed. Assessment/Plan Assessment and Plan Assess & Plan/Chief Complaint Assessment: (1) Thrombocytopenia Onset Date: ~ 04/15/2021 Status: Acute Assessment & Plan: Thrombocytopenia: re-check CBC to monitor platelet levels. Consult hematology. Also being addressed in plan for severe sepsis treatment. 04/17/2021:Continue to monitor platelet levels with CBC. Levels are improving. Consult hematology. 04/18/2021: Continue to communicate with hematology. Monitor platelet levels; thrombocytopenia suspected to be due to infection. Continue treat plan for suspected pneumonia and infection related to PICC line. (2) Back pain Status: Acute Assessment & Plan: Back pain: resume home medication gabapentin 600mg PO for pain control. Continue fentanyl citrate 25mcg IV for pain control. Monitor for improvement or worsening. Discontinue acetaminophen and ibuprofen due to elevated liver enzymes and renal status. 04/17/2021: Continue with initial plan due to no improvement of back pain. 04/18/2021: Continue treatment plan and monitor for changes in pain. : Stop fentanyl citrate and begin oxycodone HCl 5mg Q4H PRN for pain control. Qualifiers: Qualified Codes: M54.9 - Dorsalgia, unspecified (3) Joint pain Status: Acute Assessment & Plan: Joint pain: resume home medication gabapentin 600mg PO for pain control. Continue fentanyl citrate 25mcg IV for pain control. Joint pain may be associated with severe sepsis. Will continue to monitor for improvement or worsening with treatment/plan for severe sepsis. Discontinue acetaminophen and ibuprofen due to elevated liver enzymes and renal status. 04/17/2021: Continue with initial plan due to no improvement of joint pain. 04/18/2021: Continue treatment plan and monitor for changes in pain. 04/19/2021: Stop fentanyl citrate and begin oxycodone HCl 5mg Q4H PRN for pain c ontrol. Qualifiers: Qualified Codes: M25.50 - Pain in unspecified joint (4) Elevated liver function tests Status: Acute Assessment & Plan: Elevated liver function tests: re-check liver function labs. MRCP to further evaluate hepatic anatomy. Also being evaluated and treated in severe sepsis assessment and plan. 04/17/2021: Continue to monitor liver enzymes. MRCP came back with no remarkable findings. ALT is within normal limits today at 49. ALP elevated but improved from 225 to 187. AST elevated but improved from 73 to 53. Total bilirubin elevated but improved from 2.3 to 2.0. 04/18/2021: Continue to monitor liver enzymes as levels do not appear to be worsening. Elevation in liver function tests suspected to be a complication from patient's TPN. PICC line has been removed and an oral clear liquid diet has been started and is being tolerated well. (5) HTN (hypertension) Status: Chronic Assessment & Plan: HTN: continue home medications amlodipine 5mg, losartan 100mg, and propanolol 40mg PO for hypertension control. Continue to monitor blood pressure. 04/17/2021: Blood pressure within normal limits today, continue with home medications for blood pressure control. Continue to monitor. 04/18/2021: Continue with home medications and monitoring blood pressure. Qualifiers: Qualified Codes: I10 - Essential (primary) hypertension (6) Fever Status: Acute Assessment & Plan: Fever: being addressed in plan for severe sepsis. Continue to monitor temperature. Discontinue acetaminophen and ibuprofen due to elevated liver enzymes and renal status. Continue sodium chloride 1000ml @ 75ml/hr IV for hydration. 04/17/2021: Max temperature during the past 24hrs is 38.2. Fever is still present but temperature has declined. Continue to monitor. Continue sodium chloride 1000ml @ 75ml/hr IV for hydration. 04/18/2021: Max temperature in the past 24hrs is 39.4. Recent chest CT revealed 5 lobe infiltrates likely secondary to pneumonia. No pulmonary emboli were noted. Hepatosplenomegaly was present as well as small pleural effusions bilaterally. Continue with piperacillin sod/tazobactam sod 4.5gm/sodium chloride 120ml @ 30mls/hr Q8H IV. Beginning anidulafungin 200mg/sodium chloride 250ml @ 82.5mls/hr 1.1 mg/min to cover for possible fungal infection from PICC line and/or atypical pneumonia since fever is still present with antibiotic treatment alone. 04/19/2021: Acetaminophen 650mg Q6H PRN PO for fever reduction. Qualifiers: Qualified Codes: R50.9 - Fever, unspecified (7) Head ache Status: Chronic Assessment & Plan: Head ache: Continue fentanyl citrate 25mcg IV and gabapentin mg PO for pain control. Continue sodium chloride 1000ml @ 75ml/hr IV for hydration. 04/17/21: Head ache is not present today. Continue initial plan and monitor. 04/18/2021: Head ache is not present today. Continue to monitor. Qualifiers: Qualified Codes: R51.9 - Headache, unspecified; G89.29 - Other chronic pain (8) Severe sepsis Status: Acute Assessment & Plan: Severe sepsis: Patient meets 2/4 SIRS criteria: elevated temperature and elevated HR. RR within normal limits, leukocytosis not present. End organ damage of the liver could be present with elevated liver function tests. Re-check liver function tests. Re-check CBC for signs of infection/leukocytosis and to monitor thrombocytopenia. Order tick panel to search for tick-borne illness. Continue to monitor vital signs, back pain, and joint pain. Continue piperacillin sod/tazobactam sod 4.5gm/sodium chloride 120ml @ 30ml/hr Q8H IV for empiric infection treatment. Hold TPN from PICC line. 04/17/21: patient seems to be improving today; tachycardia has resolved, fever is still present but temperature is declining, leukocytosis is absent, and RR has remained within normal limits. Continue with piperacillin sod/tazobactam sod 4.5gm/sodium chloride 120ml @ 30ml/hr Q8H IV since fever still persists and source of infection remains unknown. Tick panel is still pending. PICC line has been removed. Liver enzymes improving. Continue to monitor vital signs and pain. 04/18/2021: Elevated temperature suspected to be caused by either infection from PICC line and/or an atypical pneumonia. Recent chest CT revealed 5 lobe infiltrates likely secondary to pneumonia. No pulmonary emboli were noted. Hepatosplenomegaly was present as well as small pleural effusions bilaterally. Continue with piperacillin sod/tazobactam sod 4.5gm/sodium chloride 120ml @ 3 0mls/hr Q8H IV. Beginning anidulafungin 200mg/sodium chloride 250ml @ 82.5mls/hr 1.1 mg/min to cover for possible fungal infection from PICC line and/or atypical pneumonia since fever is still present with antibiotic treatment alone. Elevated liver function tests suspected to be a complication of TPN. Tick panel came back negative. (9) D-dimer, elevated Onset Date: ~ 04/16/2021 Status: Acute Assessment & Plan: Elevated D-dimer: assess for possible DVT with doppler US bilaterally. 04/17/2021: doppler US came back negative. DVT ruled-out. Continue to monitor for swelling or change in extremities. 04/18/2021: Recent chest CT revealed no pulmonary emboli. Continue to monitor. (10) Bleeding Status: Chronic Assessment & Plan: 04/18/2021: Stool occult blood test resulted as positive. Bleeding is suspected to be chronic, likely stemming from previous GI procedures or stomach ulcers since hemoglobin level is low but is staying relatively consistent. Continue to monitor hemoglobin levels. (11) GERD with esophagitis Status: Chronic Assessment & Plan: 04/18/2021: Patient resumed a clear liquid diet yesterday and has been tolerating well. Continue pantoprazole sodium 40mg BID PO for GERD and esophagitis prophylaxis. Monitor for signs of pain, discomfort, dysphagia, and esophageal or stomach bleeding. (12) Pneumonia Status: Acute Assessment & Plan: 04/18/2021: Recent chest CT revealed 5 lobe infiltrates likely secondary to pneumonia. No pulmonary emboli were noted. Small pleural effusions bilaterally were present as well. Continue with piperacillin sod/tazobactam sod 4.5gm/sodium chloride 120ml @ 30mls/hr Q8H IV. Started anidulafungin 200mg/sodium chloride 250ml @ 82.5mls/hr 1.1 mg/min to cover for possible fungal infection from PICC line and/or atypical pneumonia since fever is still present with antibiotic treatment alone. Continue fluticasone/salmeterol 1 inhalation RTBID IH and albuterol sulfate 2.5 mg RTQ4H PRN INH for management of shortness of breath. Continue nasal cannula O2 as needed. Continue to monitor for change or worsening of symptoms. 04/19/2021: Consult e-Pulmonology. Continue to provide breathing treatments and providing supplemental oxygen as needed. Continue anidulafungin and piperacillin/tazobactam. Qualifiers: (13) Malnutrition Status: Chronic Assessment & Plan: Consult activities concierge. Patient is following with surgeon in outpatient setting for abdominal/gastric surgery needs. They placed the PICC line for TPN. PICC line has been removed, patient does not want to resume TPN for nutritional support. Discussed possibility of having a feeding tube placed. Continue to replace potassium. Continue to monitor electrolytes. Qualifiers: Qualified Codes: E46 - Unspecified protein-calorie malnutrition Plan: Supportive care Monitor labs Ambulate 04/22/21: Monitor BP after adding meds Continue supportive care Critical Care Critically Ill Patient JENNYFER PELAYO DO Apr 22, 2021 06:37
[2021-04-22 06:41] LABS: ALBUMIN 2.6 GM/DL (3.2-4.5); POTASSIUM 3.3 MMOL/L (3.6-5.0)
[2021-04-22 06:42] LABS: CALCIUM 8.6 MG/DL (8.5-10.1)
[2021-04-22 06:45] LABS: BILIRUBIN,TOTAL 0.7 MG/DL (0.1-1.0)
[2021-04-22 06:47] LABS: CREATININE SERUM 0.51 MG/DL (0.60-1.30)
[2021-04-22 07:24] VITALS: BP 159/80
[2021-04-22] MEDS: PANTOPRAZOLE 40 MG (PROTONIX) TAB PO SCH ×2 (08:24→19:23)
[2021-04-22] MEDS: PROPRANOLOL 20 MG (INDERAL) TABLET PO SCH ×2 (08:24→19:23)
[2021-04-22] MEDS: LOSARTAN 100 MG (COZAAR) TABLET PO SCH (08:24)
[2021-04-22] MEDS: GABAPENTIN 600 MG (NEURONTIN) TAB PO SCH ×3 (08:24→17:02)
[2021-04-22] MEDS: ANIDULAFUNGIN INJECTION 100 MG in NS (IVPB) 100 ML IV SCH (08:24)
[2021-04-22] MEDS: RT--FLUTICASONE/SALMETEROL 232-14 (AIRDUO RespiCLICK) IH SCH ×2 (09:07→21:04)
[2021-04-22] MEDS: RT-ALBUTEROL SULF 2.5 MG/3 ML PRE-MIX VIAL INH SCH ×2 (09:07→21:04)
[2021-04-22] MEDS: ONDANSETRON 4 MG/2 ML (SDV) Z0FRAN IVP PRN (09:29)
[2021-04-22] MEDS: POTASSIUM CL 10MEQ/50ML IVPB 50 ML IV SCH ×7 (09:29→16:42)
[2021-04-22] MEDS: SPIRONOLACTONE 25 MG (ALDACTONE) TAB PO SCH (09:29)
[2021-04-22] MEDS: KCL 20 MEQ TAB (K-DUR) PO SCH ×3 (09:29→19:23)
[2021-04-22 11:39] VITALS: BP 154/78
[2021-04-22 15:21] VITALS: BP 175/95
[2021-04-22] MEDS ORDERED: amLODIPine 5 MG (NORVASC) TAB PO ONE (17:30)
[2021-04-22] MEDS ORDERED: cloNIDine 0.1 MG (CATAPRES) TAB PO PRN (17:30)
[2021-04-22] MEDS: ACETAMINOPHEN 325 MG TABLET PO PRN (18:32)
[2021-04-22 19:20] VITALS: BP 133/84
[2021-04-22] MEDS: amLODIPine 5 MG (NORVASC) TAB PO SCH (19:22)
[2021-04-22 19:41] VITALS: BP 176/94
[2021-04-23] VITALS (7 sets, daily range): BP systolic 108–160; BP diastolic 69–90
[2021-04-23] MEDS: RT-ALBUTEROL SULF 2.5 MG/3 ML PRE-MIX VIAL INH SCH ×2 (07:52→19:14)
[2021-04-23] MEDS: RT--FLUTICASONE/SALMETEROL 232-14 (AIRDUO RespiCLICK) IH SCH ×2 (07:53→19:14)
[2021-04-23] MEDS: SPIRONOLACTONE 25 MG (ALDACTONE) TAB PO SCH (08:39)
[2021-04-23] MEDS: GABAPENTIN 600 MG (NEURONTIN) TAB PO SCH ×3 (08:39→16:47)
[2021-04-23] MEDS: ANIDULAFUNGIN INJECTION 100 MG in NS (IVPB) 100 ML IV SCH (08:39)
[2021-04-23] MEDS: LOSARTAN 100 MG (COZAAR) TABLET PO SCH (08:39)
[2021-04-23] MEDS: PROPRANOLOL 20 MG (INDERAL) TABLET PO SCH ×2 (08:39→20:15)
[2021-04-23] MEDS: PANTOPRAZOLE 40 MG (PROTONIX) TAB PO SCH ×2 (08:39→20:15)
[2021-04-23] MEDS: KCL 20 MEQ TAB (K-DUR) PO SCH ×3 (08:39→20:15)
[2021-04-23 09:06] LABS: BASOPHILS % (AUTO) 1 % (0-10); EOSINOPHILS # (AUTO) 0.1 10^3/uL (0.0-0.3); EOSINOPHILS % (AUTO) 2 % (0-10); HEMATOCRIT 36 % (35-52); HEMOGLOBIN 11.4 g/dL (11.5-16.0); LYMPHOCYTES # (AUTO) 1.4 10^3/uL (1.0-4.0); LYMPHOCYTES % (AUTO) 18 % (12-44); MEAN CORPUSCULAR HEMOGLOBIN 32 pg (25-34); MEAN CORPUSCULAR HGB CONC 31 g/dL (32-36); MEAN CORPUSCULAR VOLUME 102 fL (80-99); MONOCYTES # (AUTO) 0.4 10^3/uL (0.0-1.0); MONOCYTES % (AUTO) 4 % (0-12); NEUTROPHILS # (AUTO) 5.9 10^3/uL (1.8-7.8); NEUTROPHILS % (AUTO) 74 % (42-75); PLATELET COUNT 464 10^3/uL (130-400); WHITE BLOOD COUNT 7.9 10^3/uL (4.3-11.0)
[2021-04-23 09:24] LABS: ALBUMIN 3.1 GM/DL (3.2-4.5); BILIRUBIN,TOTAL 0.6 MG/DL (0.1-1.0); CALCIUM 9.5 MG/DL (8.5-10.1); CREATININE SERUM 0.67 MG/DL (0.60-1.30); POTASSIUM 4.1 MMOL/L (3.6-5.0); TOTAL PROTEIN 7.3 GM/DL (6.4-8.2)
[2021-04-23] MEDS: PIPERACILLIN/TAZO 4.5 GM/NS 100 ML IV SCH ×4 (12:24→20:14)
--- NOTE | 2021-04-23 12:33 | Progress Note - Hospitalist ---
AMANDA NGUYỄNE 04/23/21 1233: Subjective HPI/CC On Admission Date Seen by Provider: Apr 23, 2021 Time Seen by Provider: 08:15 CC: fever, chills, body aches, pain in back and joints Subjective/Events-last exam Pt "feeling a lot better" HERNANDEZ from yesterday resolved SOB improved Eating and drinking better Bowel movement overnight, urinating regularly Review of Systems Musculoskeletal: other (joint pain), back pain Focused Exam Respiratory: No Accessory Muscle Use, No Respiratory Distress Skin: normal color Objective Exam Vital Signs Vital Signs Date Time Temp Pulse Resp B/P (MAP) Pulse Ox O2 Delivery O2 Flow Rate FiO2 04/23/21 12:00 36.2 65 18 108/70 (83) 99 Nasal Cannula 04/23/21 08:11 1.00 04/19/21 07:53 34 Capillary Refill : Less Than 3 Seconds General Appearance: No Apparent Distress, Chronically ill, Thin Respiratory: No Accessory Muscle Use, No Respiratory Distress Neurologic/Psychiatric: Alert, Oriented x3, Normal Mood/Affect Skin: Normal Color Results/Procedures Lab Laboratory Tests 04/23/21 08:49 Patient resulted labs reviewed. Assessment/Plan Assessment and Plan Assess & Plan/Chief Complaint Assessment/Plan: Thrombocytopenia--> platelets now 352 with trt for pneumonia and PICC line infxn Back/Joint pain--> Continue gabapentin and oxycodone Liver Fxn Marker Elevations--> now WNL, except Alk Phos 199. Continue to monitor. HTN--> now 123/75; continue Losartan, Clonidine and Propranolol Fever--> None this morning (36.0 temp) HERNANDEZ--> None this morning Sepsis--> Continue Piperacillin/Tazo and Andulafungin D Dimer elevated--> reduced; continue to monitor Bleeding--> Hgb 11.4 today; monitor as stool occult blood test was positive, suspected chronic bleed from GI issues. Consult Dr. Cam. GERD--> Continue pantoprazole; clear liquid diet Pneumonia--> continue Piperacillin/Tazo and Andulafungin Malnutrition--> monitor K+ (4.1 currently) and other electrolytes, continue drinking Boost Critical Care: Critically Ill Patient LICHA PELAYO DO 04/24/21 0549: Subjective Subjective/Events-last exam Consulting general surgery for the plan on DC Eating CLD and tolerating well Labs reviewed Review of Systems General: Fatigue, Malaise Objective Exam General Appearance: No Apparent Distress, WD/WN, Chronically ill, Thin Respiratory: Lungs Clear, Normal Breath Sounds Cardiovascular: Regular Rate, Rhythm Neurologic/Psychiatric: Alert, Oriented x3 Assessment/Plan Assessment and Plan Assess & Plan/Chief Complaint Consult Dr Cam Supervisory-Addendum Brief Verification & Attestation Participated in pt care: history, MDM, physical Personally performed: exam, history, MDM, supervision of care Care discussed with: Medical Student Procedures: n/a Results interpretation: Verified all documentation Verification and Attestation of Medical Student E/M Service A medical student performed and documented this service in my presence. I reviewed and verified all information documented by the medical student and made modifications to such information, when appropriate. I personally performed the physical exam and medical decision making. Licha Pelayo, Apr 24, 2021,05:48 JOHNNY NGUYỄN Apr 23, 2021 12:33 LICHA PELAYO DO Apr 24, 2021 05:49
--- NOTE | 2021-04-23 13:50 | Consultation - Surgery ---
MALGORZATA DAMON 04/23/21 1350: History of Present Illness History of Present Illness Patient Consulted On(marah/time) 04/23/21 13:40 Time Seen by Provider: 13:15 History of Present Illness Haley is a 55yo female who is being consulted for abdominal pain. She reports no abdominal pain at this time and she has had stomach ulcers for the past 5 to 6 years. Her hemoglobin has been low but stable and her second fecal occult test was negative. She had an upper endoscopy on 03/22/21 but it could not be completed due to a stricture, she has lost a lot of weight and this has been complicated by her pneumonia. She has been seeing Dr. Mir at [place] who has been managing her stricture and her nutrition. Allergies and Home Medications Allergies Coded Allergies: Influenza Virus Vaccines (Verified Allergy, Unknown, 04/15/21) metronidazole (Verified Allergy, Unknown, 04/15/21) Sulfa (Sulfonamide Antibiotics) (Verified Adverse Reaction, Unknown, 04/15/21) Patient Home Medication List Acetaminophen (Tylenol Extra Strength) 500 Mg Tablet, 1,000 MG PO Q8H PRN for PAIN-MILD (1-4), (Reported) Entered as Reported by: ASHLEY NÚÑEZ on 04/16/21 1256 Last Action: Held Amlodipine Besylate (Amlodipine Besylate) 5 Mg Tablet, 5 MG PO HS, (Reported) Entered as Reported by: ASHLEY NÚÑEZ on 04/16/21 1238 Last Action: Continued Aspirin/Acetaminophen/Caffeine (Excedrin Extra Strength Caplet) 1 Each Tablet, 3-4 EACH PO DAILY PRN for HEADACHE, (Reported) Entered as Reported by: MODESTO BOOKER on 03/08/2021 Last Action: Held Atorvastatin Calcium (Atorvastatin Calcium) 20 Mg Tablet, 20 MG PO HS, (Reported) Entered as Reported by: ASHLEY NÚÑEZ on 04/16/21 1240 Last Action: Held Budesonide/Formoterol Fumarate (Symbicort 160-4.5 Mcg Inhaler) 10.2 Gm Hfa.aer.ad, 2 PUFF IH BID PRN for SHORTNESS OF BREATH, (Reported) Entered as Reported by: MODESTO BOOKER on 03/08/20 0916 Last Action: Converted Cholecalciferol (Vitamin D3) (Vitamin D3) 25 Mcg Capsule, 25 MCG PO DAILY, (Reported) Entered as Reported by: ASHLEY NÚÑEZ on 04/16/21 1253 Last Action: Held Cyanocobalamin (Vitamin B-12) (B-12) 500 Mcg Tablet, 500 MCG PO DAILY, (Reported) Entered as Reported by: MARIANNA MYERS on 11/29/19 1520 Last Action: Held Gabapentin (Gabapentin) 600 Mg Tablet, 600 MG PO 0800,1200,1700, (Reported) Entered as Reported by: SHIKHA MONTES on 11/30/19 113 Last Action: Continued Lorazepam (Ativan) 1 Mg Tablet, 1 MG PO HS PRN for ANXIETY, (Reported) Entered as Reported by: ASHLEY NÚÑEZ on 04/16/21 124 Last Action: Continued Losartan Potassium (Losartan Potassium) 100 Mg Tablet, 100 MG PO DAILY, (Reported) Entered as Reported by: ASHLEY NÚÑEZ on 04/16/21 124 Last Action: Continued Pantoprazole Sodium (Protonix) 40 Mg Tablet.dr, 40 MG PO BID, (Reported) Entered as Reported by: SHIKHA MONTES on 11/30/19 113 Last Action: Reviewed Promethazine HCl (Promethazine Tablet) 25 Mg Tablet, 25 MG PO TID PRN for NAUSEA/VOMITING, (Reported) Entered as Reported by: SOLOMON MENDIETA on 11/29/19 0238 Last Action: Continued Propranolol HCl (Propranolol HCl) 40 Mg Tablet, 40 MG PO BID, (Reported) Entered as Reported by: ASHLEY NÚÑEZ on 04/16/21 124 Last Action: Converted Tramadol HCl (Tramadol HCl) 50 Mg Tablet, 50 MG PO TID PRN for PAIN-MILD (1-4), (Reported) Entered as Reported by: ASHLEY NÚÑEZ on 04/16/21 152 Last Action: Reviewed Discontinued Medications Albuterol Sulfate (Proair Hfa) 1 Puff Puff, 2 PUFF IH Q4H PRN for SHORTNESS OF BREATH, (Reported) Discontinued Reason: No Longer Taking Entered as Reported by: ASHLEY NÚÑEZ on 04/16/21 1248 Last Action: Discontinued Ciprofloxacin HCl (Ciprofloxacin HCl) 500 Mg Tablet, 500 MG PO BID Discontinued Reason: No Longer Taking Prescribed by: JOSE ELIAS GODDARD on 04/14/21 1646 Last Action: Discontinued Dicyclomine HCl (Dicyclomine HCl) 20 Mg Tablet, 20 MG PO BID, (Reported) Discontinued Reason: No Longer Taking Entered as Reported by: SUREKHA BISHOP on 07/22/18 1614 Last Action: Discontinued Estrogen,Sylvie/Me-Testosterone (Estrogen-Methyltestos H.s. Tab) 1 Each Tablet, 1 TAB PO DAILY, (Reported) Discontinued Reason: No Longer Taking Entered as Reported by: MODESTO BOOKER on 03/08/20 0921 Last Action: Discontinued Hydrocodone/Acetaminophen (Hydrocodone-Acetamin 10-325 mg) 1 Each Tablet, 1 EACH PO Q6H PRN for PAIN-MODERATE (5-7), (Reported) Discontinued Reason: No Longer Taking Entered as Reported by: SOLOMON MENDIETA on 11/29/19 0238 Last Action: Discontinued Losartan Potassium (Losartan Potassium) 25 Mg Tablet, 25 MG PO DAILY, (Reported) Discontinued Reason: No Longer Taking Entered as Reported by: MODESTO BOOKER on 03/08/20 0916 Last Action: Discontinued Ondansetron (Ondansetron Odt) 4 Mg Tab.rapdis, 4 MG PO Q8H PRN for nausea Discontinued Reason: No Longer Taking Prescribed by: JOSE ELIAS GODDARD on 04/14/211646 Last Action: Discontinued Tramadol HCl (Tramadol HCl) 50 Mg Tablet, 50 MG PO Q6H PRN for PAIN Discontinued Reason: No Longer Taking Prescribed by: JOSE ELIAS GODDARD on 04/14/211646 Last Action: Discontinued Past Mgoauxr-Mitxpy-Zghygc Hx Patient Social History Smoking Status: Current Someday Smoker Former Smoker, Quit: Apr 24, 2016 Type Used: Cigarettes 2nd Hand Smoke Exposure: No Recent Hopitalizations: No (NOVEMBER OF 2019 LOW POTASSIUM) Alcohol Use?: No Have you traveled recently?: No Immunizations Up To Date Tetanus Booster (TDap): More than 5yrs PED Vaccines UTD: Yes Seasonal Allergies Seasonal Allergies: Yes Surgeries History of Surgeries: Yes (partial gastrectomy, COLONSCOPY/EGD) Surgeries: Abdominal (Billroth II, EGD, colonoscopy), Appendectomy, Hysterectomy Respiratory History of Respiratory Disorde: Yes Respiratory Disorders: Asthma Cardiovascular History of Cardiac Disorders: Yes Cardiac Disorders: Hypertension, Valvular Heart Disease Neurological History of Neurological Disord: Yes Neurological Disorders: Headaches /Migraines Reproductive System Hx 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: Yes Sexually Transmitted Disease: No HIV/AIDS: No 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, Ovarian Cyst [employer]PORATE [employer]VEL [employer]ORDINATOR History: Hysterectomy Genitourinary History of Genitourinary Disor: No Gastrointestinal History of Gastrointestinal Di: Yes Gastrointestinal Disorders: Gastrointestinal Bleed, Obstructive Bowel, Ulcer Musculoskeletal History of Musculoskeletal Dis: Yes Musculoskeletal Disorders: Scoliosis Endocrine History of Endocrine Disorders: Yes (hypoglycemia) HEENT History of HEENT Disorders: No Loss of Vision: Denies Hearing Impairment: Denies Cancer History of Cancer: No Psychosocial History of Psychiatric Problem: No Integumentary History of Skin or Integumenta: No Blood Transfusions History of Blood Disorders: Yes (anemia) Adverse Reaction to a Blood Tr: No Family Medical History Family Medial History: Cancer of colon GRANDMOTHER Family history: Diabetes mellitus 19 FATHER Family history: Hypertension 19 MOTHER Stroke 19 MOTHER Review of Systems-General Constitutional: No chills, No fever Cardiovascular: No chest pain, No palpitations Gastrointestinal: No abdominal pain, No constipation, No diarrhea; heartburn Physical Exam-General Problems Physical Exam Vital Signs Vital Signs - First Documented 04/17/21 04/17/21 04/17/21 04/19/21 00:07 03:58 23:10 07:53 Temp 38.0 Pulse 84 Resp 16 B/P (MAP) 136/76 (96) Pulse Ox 93 O2 Delivery Room Air O2 Flow Rate 4.00 FiO2 34 Capillary Refill : Less Than 3 Seconds General Appearance: no apparent distress, thin HEENT: PERRL/EOMI Respiratory: no respiratory distress, no accessory muscle use Cardiovascular: regular rate, rhythm; No no gallop, No no JVD, No no murmur Gastrointestinal: normal bowel sounds, non tender; No rebound Neurologic/Psychiatric: alert, normal mood/affect, oriented x 3 Skin: normal color, warm/dry Data Review Labs Laboratory Tests 04/23/21 08:49: White Blood Count 7.9, Red Blood Count 3.56L, Hemoglobin 11.4#L, Hematocrit 36, Mean Corpuscular Volume 102H, Mean Corpuscular Hemoglobin 32, Mean Corpuscular Hemoglobin Concent 31L, Red Cell Distribution Width 13.9, Platelet Count 464H, Mean Platelet Volume 10.0, Immature Granulocyte % (Auto) 2, Neutrophils (%) (Auto) 74, Lymphocytes (%) (Auto) 18, Monocytes (%) (Auto) 4, Eosinophils (%) (Auto) 2, Basophils (%) (Auto) 1, Neutrophils # (Auto) 5.9, Lymphocytes # (Auto) 1.4, Monocytes # (Auto) 0.4, Eosinophils # (Auto) 0.1, Basophils # (Auto) 0.0, Immature Granulocyte # (Auto) 0.1, Sodium Level 136, Potassium Level 4.1, Chloride Level 101, Carbon Dioxide Level 21, Anion Gap 14, Blood Urea Nitrogen 6L, Creatinine 0.67, Estimat Glomerular Filtration Rate 92, BUN/Creatinine Ratio 9, Glucose Level 204H, Calcium Level 9.5, Corrected Calcium 10.2H, Total Bilirubin 0.6, Aspartate Amino Transf (AST/SGOT) 35H, Alanine Aminotransferase (ALT/SGPT) 44, Alkaline Phosphatase 230H, Total Protein 7.3, Albumin 3.1L Microbiology 04/18/21 Blood Culture - Preliminary, Resulted No growth Assessment/Plan Assessment/Plan Assessment/Plan Abdominal pain GERD with esophagitis Positive Occult test Continue on clear liquid diet and improve her nutrition. She has a follow up appointment with Dr. Mir at [place] on Friday, if her nutrition is good she will proceed with surgery with Dr. Mir. Will see her again tomorrow, but surgery is not advised at this time it will be determined by Dr. Mir when the patient sees him Monitor hemoglobin levels if a gastric ulcer starts to bleed again. AAYUSH TORRES DO 04/23/211850: History of Present Illness History of Present Illness History of Present Illness Consult requested by Dr. Delgadillo for abdominal pain. Patient is a 55 year old female in 2014 she says had a gastric ulcer and had to undergo surgery. She states she had a billroth surgery. She has been having problems for the last 3 years though with an anastamosis stricture. She has continued to lose weight over time. She has been placed on TPN trying to improve her nutrition and preparing for surgery. Dr. Mir is surgeon she has been seeing. She was found to have severe sepsis and found to have an infected picc line. She was also found to have 5 lobe infiltrates on recent ct scan. She has has elevated liver enzymes as well. Patient had an MRCP which demonstrated normal ducts. Patient currently not having any abdominal pain. She is able to tolerate liquids and trying to increase Ensure. She experiences some nausea but can tolerate it. She has had fevers except has been fever free the last 2 days. Has continue to have cough but does not produce anything from it. Denies sweats chills shortness of breath or chest pain at this time. Allergies and Home Medications Allergies Coded Allergies: Influenza Virus Vaccines (Verified Allergy, Unknown, 04/15/21) metronidazole (Verified Allergy, Unknown, 04/15/21) Sulfa (Sulfonamide Antibiotics) (Verified Adverse Reaction, Unknown, 04/15/21) Patient Home Medication List Home Medication List Reviewed: Yes Acetaminophen (Tylenol Extra Strength) 500 Mg Tablet, 1,000 MG PO Q8H PRN for PAIN-MILD (1-4), (Reported) Entered as Reported by: ASHLEY NÚÑEZ on 04/16/21 1256 Last Action: Held Amlodipine Besylate (Amlodipine Besylate) 5 Mg Tablet, 5 MG PO HS, (Reported) Entered as Reported by: ASHLEY NÚÑEZ on 04/16/21 1238 Last Action: Continued Aspirin/Acetaminophen/Caffeine (Excedrin Extra Strength Caplet) 1 Each Tablet, 3-4 EACH PO DAILY PRN for HEADACHE, (Reported) Entered as Reported by: MODESTO BOOKER on 03/08/20 0921 Last Action: Held Atorvastatin Calcium (Atorvastatin Calcium) 20 Mg Tablet, 20 MG PO HS, (Reported) Entered as Reported by: ASHLEY NÚÑEZ on 04/16/21 1240 Last Action: Held Budesonide/Formoterol Fumarate (Symbicort 160-4.5 Mcg Inhaler) 10.2 Gm Hfa.aer.ad, 2 PUFF IH BID PRN for SHORTNESS OF BREATH, (Reported) Entered as Reported by: MODESTO BOOKER on 03/08/20 0916 Last Action: Converted Cholecalciferol (Vitamin D3) (Vitamin D3) 25 Mcg Capsule, 25 MCG PO DAILY, (Reported) Entered as Reported by: ASHLEY NÚÑEZ on 04/16/21 1253 Last Action: Held Cyanocobalamin (Vitamin B-12) (B-12) 500 Mcg Tablet, 500 MCG PO DAILY, (Reported) Entered as Reported by: MARIANNA MYERS on 11/29/19 1520 Last Action: Held Gabapentin (Gabapentin) 600 Mg Tablet, 600 MG PO 0800,1200,1700, (Reported) Entered as Reported by: SHIKHA MONTES on 11/30/19 1133 Last Action: Continued Lorazepam (Ativan) 1 Mg Tablet, 1 MG PO HS PRN for ANXIETY, (Reported) Entered as Reported by: ASHLEY NÚÑEZ on 04/16/21 1243 Last Action: Continued Losartan Potassium (Losartan Potassium) 100 Mg Tablet, 100 MG PO DAILY, (Reported) Entered as Reported by: ASHLEY NÚÑEZ on 04/16/21 1246 Last Action: Continued Pantoprazole Sodium (Protonix) 40 Mg Tablet.dr, 40 MG PO BID, (Reported) Entered as Reported by: SHIKHA MONTES on 11/30/19 1133 Last Action: Reviewed Promethazine HCl (Promethazine Tablet) 25 Mg Tablet, 25 MG PO TID PRN for NAUSEA/VOMITING, (Reported) Entered as Reported by: SOLOMON MENDIETA on 11/29/19 0238 Last Action: Continued Propranolol HCl (Propranolol HCl) 40 Mg Tablet, 40 MG PO BID, (Reported) Entered as Reported by: ASHLEY NÚÑEZ on 04/16/21 124 Last Action: Converted Tramadol HCl (Tramadol HCl) 50 Mg Tablet, 50 MG PO TID PRN for PAIN-MILD (1-4), (Reported) Entered as Reported by: ASHLEY NÚÑEZ on 04/16/21 1520 Last Action: Reviewed Discontinued Medications Albuterol Sulfate (Proair Hfa) 1 Puff Puff, 2 PUFF IH Q4H PRN for SHORTNESS OF BREATH, (Reported) Discontinued Reason: No Longer Taking Entered as Reported by: ASHLEY NÚÑEZ on 04/16/21 1248 Last Action: Discontinued Ciprofloxacin HCl (Ciprofloxacin HCl) 500 Mg Tablet, 500 MG PO BID Discontinued Reason: No Longer Taking Prescribed by: JOSE ELIAS GODDARD on 04/14/21 1646 Last Action: Discontinued Dicyclomine HCl (Dicyclomine HCl) 20 Mg Tablet, 20 MG PO BID, (Reported) Discontinued Reason: No Longer Taking Entered as Reported by: SUREKHA BISHOP on 07/22/18 1614 Last Action: Discontinued Estrogen,Sylvie/Me-Testosterone (Estrogen-Methyltestos H.s. Tab) 1 Each Tablet, 1 TAB PO DAILY, (Reported) Discontinued Reason: No Longer Taking Entered as Reported by: MODESTO BOOKER on 03/08/20920 Last Action: Discontinued Hydrocodone/Acetaminophen (Hydrocodone-Acetamin 10-325 mg) 1 Each Tablet, 1 EACH PO Q6H PRN for PAIN-MODERATE (5-7), (Reported) Discontinued Reason: No Longer Taking Entered as Reported by: SOLOMON MENDIETA on 11/29/19 0238 Last Action: Discontinued Losartan Potassium (Losartan Potassium) 25 Mg Tablet, 25 MG PO DAILY, (Reported) Discontinued Reason: No Longer Taking Entered as Reported by: MODESTO BOOKER on 03/08/2016 Last Action: Discontinued Ondansetron (Ondansetron Odt) 4 Mg Tab.rapdis, 4 MG PO Q8H PRN for nausea Discontinued Reason: No Longer Taking Prescribed by: JOSE ELIAS GODDARD on 04/14/211646 Last Action: Discontinued Tramadol HCl (Tramadol HCl) 50 Mg Tablet, 50 MG PO Q6H PRN for PAIN Discontinued Reason: No Longer Taking Prescribed by: JOSE ELIAS GODDARD on 04/14/211646 Last Action: Discontinued Past Rlzqmwp-Hgvwbz-Glkono Hx Reviewed Nursing Assessment Reviewed/Agree w Nursing PMH: Yes Family Medical History Significant Family History: No Pertinent Family Hx Family Medial History: Cancer of colon GRANDMOTHER Family history: Diabetes mellitus 19 FATHER Family history: Hypertension 19 MOTHER Stroke 19 MOTHER Review of Systems-General Constitutional: No chills; fever, weight loss EENTM: No blurred vision, No double vision Respiratory: cough; No dyspnea on exertion, No short of breath Cardiovascular: No chest pain, No palpitations Gastrointestinal: No abdominal pain, No constipation, No diarrhea; heartburn, nausea; No vomiting Genitourinary: No decreased output, No discharge Musculoskeletal: No back pain, No joint pain Skin: No change in color, No change in hair/nails Psychiatric/Neurological: Denies Anxiety, Denies Depressed, Denies Emotional Problems All Other Systems Reviewed Negative Unless Noted: Yes (Negative excepted noted.) Physical Exam-General Problems Physical Exam General Appearance: WD/WN, no apparent distress, thin HEENT: PERRL/EOMI, normal ENT inspection Neck: non-tender, normal inspection Respiratory: chest non-tender, no respiratory distress, no accessory muscle use Cardiovascular: regular rate, rhythm, no JVD Gastrointestinal: non tender, soft, no organomegaly; No rebound; other (midline scar) Rectal: deferred Back: normal inspection, no CVA tenderness Extremities: non-tender, normal inspection Neurologic/Psychiatric: alert, normal mood/affect, oriented x 3 Skin: normal color, warm/dry Lymphatic: no adenopathy Assessment/Plan Assessment/Plan Assessment/Plan severe sepsis 5 lobe pneumonia elevated liver enzymes 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 Would continue with antibiotics. Need to continue to try and improve nutritional state. She is keeping ensure down with minimal nausea at this time. No urgent surgical intervention. Will continue current plan. Patient plans on keeping appointment with Dr. Mir. Supervisory-Addendum Brief Verification & Attestation Participated in pt care: history, MDM, physical Personally performed: exam, history, MDM, supervision of care Care discussed with: Medical Student Procedures: n/a Results interpretation: Verified all documentation Verification and Attestation of Medical Student E/M Service A medical student performed and documented this service in my presence. I reviewed and verified all information documented by the medical student and made modifications to such information, when appropriate. I personally performed the physical exam and medical decision making. Aayush Torres, Apr 23, 2021,19:15 MALGORZATA DAMON Apr 23, 2021 13:50 AAYUSH TORRES DO Apr 23, 2021 18:51
--- NOTE | 2021-04-23 14:32 | Progress Note ---
Progress Note Assessment/Plan Date Seen by Provider: Apr 23, 2021 Time Seen by Provider: 14:35 Events since last exam Afebrile over 48 hrs. Overall doing better. Laboratory Tests 04/23/21 08:49 Assessment/Plan IMP: 1. Line related infection. Fever and general malaise, infected PICC line, positive Coryneform bacteria from PICC tip 2. Thrombocytopenia, acute. Resolved. Pt had normal CBC and CMP 10/2020. 3. Acute elevated LFTs, most likely from the infection. Improved 4. Normal renal function. 5. Multiple gastric surgeries and malnutrition due to poor GI intake. Albumin 2.5 and Pt has been on TPN. 6. Multiple lobe of pneumonia on IV Zosyn over 5 days and microfungin over 48 hrs and still spike fever. 7. Acute heptosplenomegaly ?related to severe infection. Rec: 1. From hematology point of view, she does not need any treatment. Slightly elevated Plt is reactive. 2. Will sign off. 3. See me at her routine f[facility]u [facility] Vitals Last set of Vitals Signs Vital Signs Date Time Temp Pulse Resp B/P (MAP) Pulse Ox O2 Delivery O2 Flow Rate FiO2 04/23/21 12:00 36.2 65 18 108/70 (83) 99 Nasal Cannula 04/23/21 08:11 1.00 04/19/21 07:53 34 I&O I&O Intake and Output 04/23/21 00:00 Intake Total 2040 ml Output Total 2400 ml Balance -360 ml Intake Oral 1890 ml IV Total 150 ml Output Urine Total 2400 ml # Voids 4 # Bowel Movements 3 Labs Laboratory Tests 04/23/21 08:49: White Blood Count 7.9, Red Blood Count 3.56L, Hemoglobin 11.4#L, Hematocrit 36, Mean Corpuscular Volume 102H, Mean Corpuscular Hemoglobin 32, Mean Corpuscular Hemoglobin Concent 31L, Red Cell Distribution Width 13.9, Platelet Count 464H, Mean Platelet Volume 10.0, Immature Granulocyte % (Auto) 2, Neutrophils (%) (Auto) 74, Lymphocytes (%) (Auto) 18, Monocytes (%) (Auto) 4, Eosinophils (%) (Auto) 2, Basophils (%) (Auto) 1, Neutrophils # (Auto) 5.9, Lymphocytes # (Auto) 1.4, Monocytes # (Auto) 0.4, Eosinophils # (Auto) 0.1, Basophils # (Auto) 0.0, Immature Granulocyte # (Auto) 0.1, Sodium Level 136, Potassium Level 4.1, Chloride Level 101, Carbon Dioxide Level 21, Anion Gap 14, Blood Urea Nitrogen 6L, Creatinine 0.67, Estimat Glomerular Filtration Rate 92, BUN/Creatinine Ratio 9, Glucose Level 204H, Calcium Level 9.5, Corrected Calcium 10.2H, Total Bilirubin 0.6, Aspartate Amino Transf (AST/SGOT) 35H, Alanine Aminotransferase (ALT/SGPT) 44, Alkaline Phosphatase 230H, Total Protein 7.3, Albumin 3.1L Microbiology 04/18/21 Blood Culture - Preliminary, Resulted No growth VERENA OROPEZA MD Apr 23, 2021 14:32
[2021-04-23] MEDS: amLODIPine 5 MG (NORVASC) TAB PO SCH (20:15)
[2021-04-23] MEDS: ONDANSETRON 4 MG/2 ML (SDV) Z0FRAN IVP PRN (21:41)
[2021-04-24] MEDS: PIPERACILLIN/TAZO 4.5 GM/NS 100 ML IV SCH ×4 (03:41→12:24)
[2021-04-24 04:02] VITALS: BP 119/72
[2021-04-24 05:13] LABS: BASOPHILS # (AUTO) 0.1 10^3/uL (0.0-0.1); BASOPHILS % (AUTO) 1 % (0-10); EOSINOPHILS # (AUTO) 0.2 10^3/uL (0.0-0.3); EOSINOPHILS % (AUTO) 2 % (0-10); HEMATOCRIT 32 % (35-52); HEMOGLOBIN 9.9 g/dL (11.5-16.0); LYMPHOCYTES # (AUTO) 1.6 10^3/uL (1.0-4.0); LYMPHOCYTES % (AUTO) 21 % (12-44); MEAN CORPUSCULAR HEMOGLOBIN 32 pg (25-34); MEAN CORPUSCULAR HGB CONC 31 g/dL (32-36); MEAN CORPUSCULAR VOLUME 102 fL (80-99); MEAN PLATELET VOLUME 10.4 fL (9.0-12.2); MONOCYTES # (AUTO) 0.7 10^3/uL (0.0-1.0); MONOCYTES % (AUTO) 9 % (0-12); NEUTROPHILS % (AUTO) 65 % (42-75); PLATELET COUNT 429 10^3/uL (130-400); WHITE BLOOD COUNT 7.7 10^3/uL (4.3-11.0)
[2021-04-24 05:23] LABS: ALBUMIN 2.7 GM/DL (3.2-4.5)
[2021-04-24 05:24] LABS: POTASSIUM 4.7 MMOL/L (3.6-5.0)
[2021-04-24 05:25] LABS: CALCIUM 8.7 MG/DL (8.5-10.1)
[2021-04-24 05:26] LABS: TOTAL PROTEIN 6.1 GM/DL (6.4-8.2)
[2021-04-24 05:28] LABS: BILIRUBIN,TOTAL 0.5 MG/DL (0.1-1.0)
[2021-04-24 05:30] LABS: CREATININE SERUM 0.6 MG/DL (0.60-1.30)
[2021-04-24] MEDS: RT-ALBUTEROL SULF 2.5 MG/3 ML PRE-MIX VIAL INH SCH (07:17)
[2021-04-24] MEDS: RT--FLUTICASONE/SALMETEROL 232-14 (AIRDUO RespiCLICK) IH SCH (07:17)
--- NOTE | 2021-04-24 07:20 | Progress Note - Surgery ---
MALGORZATA DAMON 04/24/21 0720: Subjective Time Seen by a Provider: 07:00 Subjective/Events-last exam Pt continues to improve from her severe sepsis. She has not experienced any fever or chills for about 3 days, her Nausea has improved in which is not experiencing any today and she has a oxygen saturation of 100% on room air. She denies CP, SOB, abdominal pain, N/V, constipation, diarrhea, fever, chills, or anxiety. Objective Exam Vital Signs Date Time Temp Pulse Resp B/P (MAP) Pulse Ox O2 Delivery O2 Flow Rate FiO2 04/24/21 04:02 35.6 63 17 119/72 (88) 100 Room Air 04/23/21 23:56 35.8 59 18 109/70 (83) 91 Room Air 04/23/21 20:00 Nasal Cannula 1.00 04/23/21 19:34 35.7 83 18 120/69 (86) 97 Room Air 04/23/21 19:14 96 Room Air 04/23/21 15:50 35.6 67 18 160/90 (113) 100 Room Air 04/23/21 12:00 36.2 65 18 108/70 (83) 99 Nasal Cannula 04/23/21 08:11 Nasal Cannula 1.00 04/23/21 08:00 36.4 73 18 123/75 (91) 100 Room Air 04/23/21 07:54 99 Room Air I & O 04/24/21 07:00 Intake Total 5010 ml Output Total 950 ml Balance 4060 ml Capillary Refill : Less Than 3 Seconds General Appearance: No Apparent Distress, WD/WN, Chronically ill, Thin HEENT: PERRL/EOMI Neck: Full Range of Motion, Normal Inspection, Non Tender, Supple Respiratory: Lungs Clear, Normal Breath Sounds, No Accessory Muscle Use, No Respiratory Distress Cardiovascular: Regular Rate, Rhythm Gastrointestinal: non tender, soft Neurologic/Psychiatric: Alert, Oriented x3 Skin: Normal Color Lymphatic: Other (mild submandibular adenopathy) Results Lab Laboratory Tests 04/23/21 08:49: White Blood Count 7.9, Red Blood Count 3.56L, Hemoglobin 11.4#L, Hematocrit 36, Mean Corpuscular Volume 102H, Mean Corpuscular Hemoglobin 32, Mean Corpuscular Hemoglobin Concent 31L, Red Cell Distribution Width 13.9, Platelet Count 464H, Mean Platelet Volume 10.0, Immature Granulocyte % (Auto) 2, Neutrophils (%) (Auto) 74, Lymphocytes (%) (Auto) 18, Monocytes (%) (Auto) 4, Eosinophils (%) (Auto) 2, Basophils (%) (Auto) 1, Neutrophils # (Auto) 5.9, Lymphocytes # (Auto) 1.4, Monocytes # (Auto) 0.4, Eosinophils # (Auto) 0.1, Basophils # (Auto) 0.0, Immature Granulocyte # (Auto) 0.1, Sodium Level 136, Potassium Level 4.1, Chloride Level 101, Carbon Dioxide Level 21, Anion Gap 14, Blood Urea Nitrogen 6L, Creatinine 0.67, Estimat Glomerular Filtration Rate 92, BUN/Creatinine Ratio 9, Glucose Level 204H, Calcium Level 9.5, Corrected Calcium 10.2H, Ferritin 498.2H, Total Bilirubin 0.6, Aspartate Amino Transf (AST/SGOT) 35H, Alanine Aminotransferase (ALT/SGPT) 44, Alkaline Phosphatase 230H, Total Protein 7.3, Albumin 3.1L 04/24/21 04:55: White Blood Count 7.7, Red Blood Count 3.14L, Hemoglobin 9.9L, Hematocrit 32L, Mean Corpuscular Volume 102H, Mean Corpuscular Hemoglobin 32, Mean Corpuscular Hemoglobin Concent 31L, Red Cell Distribution Width 13.8, Platelet Count 429H, Mean Platelet Volume 10.4, Immature Granulocyte % (Auto) 2, Neutrophils (%) (Auto) 65, Lymphocytes (%) (Auto) 21, Monocytes (%) (Auto) 9, Eosinophils (%) (Auto) 2, Basophils (%) (Auto) 1, Neutrophils # (Auto) 5.0, Lymphocytes # (Auto) 1.6, Monocytes # (Auto) 0.7, Eosinophils # (Auto) 0.2, Basophils # (Auto) 0.1, Immature Granulocyte # (Auto) 0.2H, Sodium Level 137, Potassium Level 4.7, Chl oride Level 104, Carbon Dioxide Level 22, Anion Gap 11, Blood Urea Nitrogen 6L, Creatinine 0.60, Estimat Glomerular Filtration Rate 105, BUN/Creatinine Ratio 10, Glucose Level 90, Calcium Level 8.7, Corrected Calcium 9.7, Total Bilirubin 0.5, Aspartate Amino Transf (AST/SGOT) 29, Alanine Aminotransferase (ALT/SGPT) 35, Alkaline Phosphatase 191H, Total Protein 6.1L, Albumin 2.7L Microbiology 04/18/21 Blood Culture - Final, Complete No growth Assessment/Plan Assessment/Plan Assessment/Plan severe sepsis 5 lobe pneumonia elevated liver enzymes 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 Would continue with antibiotics. Need to continue to try and improve nutritional state. She experienced some nausea yesterday but none today. No urgent surgical intervention needed and she will be discharged later today. Patient plans on keeping appointment with Dr. Mir who will determine if Surgery is needed based on her nutritional status. PONCHO TORRES DO 04/24/212103: Subjective Subjective/Events-last exam Patient states she is feeling significantly better. She has not had any fevers now for 3 days she states. She is not having any nausea really at this time. She has not had any emesis. Patient has no abdominal pain. Patient is tolerating liquids back to her normal state. Patient feeling significantly better. Her breathing and cough have improved. She has no other complaints at this time she denies any sweats chills shortness of breath or chest pain at this time Objective Exam General Appearance: No Apparent Distress, Chronically ill, Thin HEENT: PERRL/EOMI, Normal ENT Inspection Neck: Non Tender, Supple Respiratory: No Accessory Muscle Use, No Respiratory Distress Cardiovascular: Regular Rate, Rhythm, No JVD Gastrointestinal: non tender, soft, other (Midline scar) Extremity: Non Tender; No Swelling Neurologic/Psychiatric: Alert, Oriented x3 Skin: Normal Color, Warm/Dry Lymphatic: No Adenopathy Assessment/Plan Assessment/Plan Assessment/Plan severe sepsis 5 lobe pneumonia elevated liver enzymes anastamotic stricture from bill alicia malnutrition Patient has continued to improve. Would continue with antibiotics. Continue to try and improve nutritional state. She experienced some nausea yesterday but none today. No urgent surgical intervention needed and she will be discharged later today. Patient plans on keeping appointment with Dr. Mir who will determine her nutritional status is well enough for proceeding with surgery, or if wants to delay till it improves further. Supervisory-Addendum Brief Verification & Attestation Participated in pt care: history, MDM, physical Personally performed: exam, history, MDM, supervision of care Care discussed with: Medical Student Procedures: n/a Results interpretation: Verified all documentation Verification and Attestation of Medical Student E/M Service A medical student performed and documented this service in my presence. I reviewed and verified all information documented by the medical student and made modifications to such information, when appropriate. I personally performed the physical exam and medical decision making. Poncho Torres, Apr 24, 2021,21:02 MALGORZATA DAMON Apr 24, 2021 07:20 PONCHO TORRES DO Apr 24, 2021 21:04
[2021-04-24 08:20] VITALS: BP 143/82
[2021-04-24] MEDS: GABAPENTIN 600 MG (NEURONTIN) TAB PO SCH ×2 (08:29→11:36)
[2021-04-24] MEDS: SPIRONOLACTONE 25 MG (ALDACTONE) TAB PO SCH (08:29)
[2021-04-24] MEDS: LOSARTAN 100 MG (COZAAR) TABLET PO SCH (08:29)
[2021-04-24] MEDS: PANTOPRAZOLE 40 MG (PROTONIX) TAB PO SCH (08:29)
[2021-04-24] MEDS: KCL 20 MEQ TAB (K-DUR) PO SCH (08:29)
[2021-04-24] MEDS: ANIDULAFUNGIN INJECTION 100 MG in NS (IVPB) 100 ML IV SCH (08:30)
[2021-04-24] MEDS: PROPRANOLOL 20 MG (INDERAL) TABLET PO SCH (08:30)
--- NOTE | 2021-04-24 09:43 | Pulmonary Progress Note ---
Subjective Date Seen by a Provider: Apr 24, 2021 Time Seen by a Provider: 09:43 Subjective/Events-last exam she is feeling much better, no fever. oxygen requirement resolved, currently on room air. Covid-19 negative pcr. She has an appointment with her surgeon on next Friday for re evaluation. Review of Systems ROS PER ATTENDING. Sepsis Event Evaluation Height, Weight, BMI Height: 5'0" Weight: 106lbs. 0.0oz. [id number]; 20.36 BMI Method:Stated Exam Exam Patient acknowledged, consented, and participated in this virtual visit which was conducted using real time audio/video Vital Signs Date Time Temp Pulse Resp B/P (MAP) Pulse Ox O2 Delivery O2 Flow Rate FiO2 04/24/21 08:20 36.1 72 16 143/82 (102) 100 Room Air 04/24/21 08:00 Nasal Cannula 1.00 04/24/21 07:17 96 Room Air 04/24/21 04:02 35.6 63 17 119/72 (88) 100 Room Air 04/23/21 23:56 35.8 59 18 109/70 (83) 91 Room Air 04/23/21 20:00 Nasal Cannula 1.00 04/23/21 19:34 35.7 83 18 120/69 (86) 97 Room Air 04/23/21 19:14 96 Room Air 04/23/21 15:50 35.6 67 18 160/90 (113) 100 Room Air 04/23/21 12:00 36.2 65 18 108/70 (83) 99 Nasal Cannula I & O 04/24/21 06:59 Intake Total 5010 ml Output Total 950 ml Balance 4060 ml Height & Weight Height: 5'0" Weight: 106lbs. 0.0oz. 48.705859nn; 20.36 BMI Method:Stated General Appearance: No Apparent Distress, WD/WN, Chronically ill, Thin HEENT: PERRL/EOMI Neck: Full Range of Motion, Normal Inspection, Non Tender, Supple Respiratory: Lungs Clear, Normal Breath Sounds, No Accessory Muscle Use, No Respiratory Distress Cardiovascular: Regular Rate, Rhythm Capillary Refill: Less Than 3 Seconds Gastrointestinal: non tender, soft Neurologic/Psychiatric: Alert, Oriented x3 Skin: Normal Color Lymphatic: Other (mild submandibular adenopathy) Other comments S1, S2 HEARD. NO MURMURS PRESENT. LUNGS CLEAR Results Lab Laboratory Tests 04/23/21 08:49 04/24/21 04:55 Meds reviewed Assessment/Plan Assessment/Plan 1. pneumonia clinically improving. 2.hypoxic respiratory failure imroved. 3. gastric outlet stenosis. tolerating liquids. Plan. 1. Suggest oral antibiotics. 2. will repeat afollow up cxr. 3. Follow up with her surgeon on friday. 4. Discussed with RN and patient via video visit. Critical Care: Critically Ill Patient Time spent with patient (mins): 25 SARAH QUAN MD Apr 24, 2021 09:43
[2021-04-24] MEDS ORDERED: KCL 20 MEQ TAB (K-DUR) PO SCH (09:45)
[2021-04-24] MEDS ORDERED: FLUC100T PO (10:48)
[2021-04-24] MEDS ORDERED: OXC5T PO (10:48)
[2021-04-24] MEDS ORDERED: AMOX-358 PO (10:48)
--- NOTE | 2021-04-24 10:49 | Discharge Summary ---
Discharge Summary Hospital Course Was the Problem List Reviewed?: Yes Problems/Dx: (1) Thrombocytopenia Status: Acute (2) Back pain Status: Acute Qualifiers: Qualified Codes: M54.9 - Dorsalgia, unspecified (3) Joint pain Status: Acute Qualifiers: Qualified Codes: M25.50 - Pain in unspecified joint (4) Elevated liver function tests Status: Acute (5) HTN (hypertension) Status: Chronic Qualifiers: Qualified Codes: I10 - Essential (primary) hypertension (6) Fever Status: Acute Qualifiers: Qualified Codes: R50.9 - Fever, unspecified (7) Head ache Status: Chronic Qualifiers: Qualified Codes: R51.9 - Headache, unspecified; G89.29 - Other chronic pain (8) Severe sepsis Status: Acute (9) D-dimer, elevated Status: Acute (10) Bleeding Status: Chronic (11) GERD with esophagitis Status: Chronic (12) Pneumonia Status: Acute Qualifiers: (13) Malnutrition Status: Chronic Qualifiers: Qualified Codes: E46 - Unspecified protein-calorie malnutrition Hospital Course Date of Admission: Apr 15, 2021 at 17:14 Admission Diagnosis : Family Physician/Provider: Elias Acosta Date of Discharge: 04/24/21 Discharge Diagnosis: multi-lobar PNA, thrombocytopenia, esophageal stricture, weight loss Hospital Course: 55 yo female w/ hx of HTN, GERD, JESSICA, PUD, GI bleeds and 3 gastric bypass surgeries presented to the ER on 04/14 with fever, chills, body aches, intermittent HERNANDEZ, diarrhea, SOB with exertion, forgetfulness/disorientation and pain in her back and joints. She was sent home, but reported on 04/15 with worsening sx and was admitted. Pt had thrombocytopenia (PLT 38), elevated LFTs, and JESSICA (Hgb 10.7) upon admission; oncology/hematology was consulted. The pt had a PICC line placed on 03/24 to improve her nutritional status prior to a surgery scheduled on 04/23 to open a gastric outlet obstruction. After admission, she was given Zosyn IV when a blood culture from her PICC line tip showed Coryneform bacteria. The pt's gallbladder US, MRCP, and venous doppler showed no abnormalities. Pt was placed on oxycodone for pain control at her request. Pt continued to have a fever and had an episode of severe SOB (desat to 87%) overnight on 04/17. Chest/thorax CTA on 04/18 showed 5 lobe infiltrates secondary to possible pneumonia, as well as hepatospenomegaly. Adulafungin was added to her regimen to treat infxn. With aggressive trt of her infxn, the pt's platelet count, SOB, fever, and LFTs improved. Surgery was consulted since the pt was experincing abd pain and had a hx of a positive stool occult blood test (though a subsequent test was negative). Surgery recommended conservative treatment and to follow up with Dr. Mir, her gastric surgeon. Pt received potassium supplementation during her stay, but refused TPN, preferring a CLD. Pt is being discharged without need for supplemental oxygen and will continue taking Augmentin and Diflucan at home. Her oxycodone was reduced to Q8hr prior to discharge. She has support from her SO at home and will f/u with Dr. Mir on 04/30 at 1:30pm. JOHNNY NGUYỄN Apr 24, 2021 18:44 Labs and Pending Lab Test: Laboratory Tests 04/24/21 04:55: White Blood Count 7.7, Red Blood Count 3.14L, Hemoglobin 9.9L, Hematocrit 32L, Mean Corpuscular Volume 102H, Mean Corpuscular Hemoglobin 32, Mean Corpuscular Hemoglobin Concent 31L, Red Cell Distribution Width 13.8, Platelet Count 429H, Mean Platelet Volume 10.4, Immature Granulocyte % (Auto) 2, Neutrophils (%) (Auto) 65, Lymphocytes (%) (Auto) 21, Monocytes (%) (Auto) 9, Eosinophils (%) (Auto) 2, Basophils (%) (Auto) 1, Neutrophils # (Auto) 5.0, Lymphocytes # (Auto) 1.6, Monocytes # (Auto) 0.7, Eosinophils # (Auto) 0.2, Basophils # (Auto) 0.1, Immature Granulocyte # (Auto) 0.2H, Sodium Level 137, Potassium Level 4.7, Chloride Level 104, Carbon Dioxide Level 22, Anion Gap 11, Blood Urea Nitrogen 6L, Creatinine 0.60, Estimat Glomerular Filtration Rate 105, BUN/Creatinine Ratio 10, Glucose Level 90, Calcium Level 8.7, Corrected Calcium 9.7, Total Bilirubin 0.5, Aspartate Amino Transf (AST/SGOT) 29, Alanine Aminotransferase (ALT/SGPT) 35, Alkaline Phosphatase 191H, Total Protein 6.1L, Albumin 2.7L Microbiology 04/18/21 Blood Culture - Final, Complete No growth Home Meds Active Diflucan (Fluconazole) 100 Mg Tablet 100 Mg PO DAILY Augmentin 875-125 Tablet (Amoxicillin/Potassium Clav) 1 Each Tablet 1 Each PO BID Reported Tramadol HCl 50 Mg Tablet 50 Mg PO TID PRN Tylenol Extra Strength (Acetaminophen) 500 Mg Tablet 1,000 Mg PO Q8H PRN Vitamin D3 (Cholecalciferol (Vitamin D3)) 25 Mcg Capsule 25 Mcg PO DAILY Losartan Potassium 100 Mg Tablet 100 Mg PO DAILY Ativan (Lorazepam) 1 Mg Tablet 1 Mg PO HS PRN Atorvastatin Calcium 20 Mg Tablet 20 Mg PO HS Propranolol HCl 40 Mg Tablet 40 Mg PO BID Amlodipine Besylate 5 Mg Tablet 5 Mg PO HS Excedrin Extra Strength Caplet (Aspirin/Acetaminophen/Caffeine) 1 Each Tablet 3- 4 Each PO DAILY PRN Symbicort 160-4.5 Mcg Inhaler (Budesonide/Formoterol Fumarate) 10.2 Gm Hfa.aer.ad 2 Puff IH BID PRN Protonix (Pantoprazole Sodium) 40 Mg Tablet.dr 40 Mg PO BID Gabapentin 600 Mg Tablet 600 Mg PO 0800,1200,1700 B-12 (Cyanocobalamin (Vitamin B-12)) 500 Mcg Tablet 500 Mcg PO DAILY Promethazine Tablet (Promethazine HCl) 25 Mg Tablet 25 Mg PO TID PRN Assessment/Pt Instructions PCP this week Dr Mir Friday Discharge Planning: <30 minutes discharge planning Discharge Instructions Discharge Diet: Liquid Diet Activity as Tolerated: Yes Discharge Physical Examination Vital Signs Vital Signs Date Time Temp Pulse Resp B/P (MAP) Pulse Ox O2 Delivery O2 Flow Rate FiO2 04/24/21 08:20 36.1 72 16 143/82 (102) 100 Room Air 04/24/21 08:00 1.00 04/19/21 07:53 34 General Appearance: No Apparent Distress, WD/WN, Chronically ill, Thin Allergies: Coded Allergies: Influenza Virus Vaccines (Verified Allergy, Unknown, 04/15/21) metronidazole (Verified Allergy, Unknown, 04/15/21) Sulfa (Sulfonamide Antibiotics) (Verified Adverse Reaction, Unknown, 04/15/21) Discharge Summary Date of Admission Apr 15, 2021 at 17:14 Date of Discharge Discharge Date: Apr 24, [address] Cam (1) Thrombocytopenia Onset Date: ~ 04/15/2021 Status: Acute Assessment & Plan: Thrombocytopenia: re-check CBC to monitor platelet levels. Consult hematology. Also being addressed in plan for severe sepsis treatment. 04/17/2021:Continue to monitor platelet levels with CBC. Levels are improving. Consult hematology. 04/18/2021: Continue to communicate with hematology. Monitor platelet levels; thrombocytopenia suspected to be due to infection. Continue treat plan for suspected pneumonia and infection related to PICC line. (2) Back pain Status: Acute Assessment & Plan: Back pain: resume home medication gabapentin 600mg PO for pain control. Continue fentanyl citrate 25mcg IV for pain control. Monitor for improvement or worsening. Discontinue acetaminophen and ibuprofen due to elevated liver enzymes and renal status. 04/17/2021: Continue with initial plan due to no improvement of back pain. 04/18/2021: Continue treatment plan and monitor for changes in pain. : Stop fentanyl citrate and begin oxycodone HCl 5mg Q4H PRN for pain control. Qualifiers: Qualified Codes: M54.9 - Dorsalgia, unspecified (3) Joint pain Status: Acute Assessment & Plan: Joint pain: resume home medication gabapentin 600mg PO for pain control. Continue fentanyl citrate 25mcg IV for pain control. Joint pain may be associated with severe sepsis. Will continue to monitor for improvement or worsening with treatment/plan for severe sepsis. Discontinue acetaminophen and ibuprofen due to elevated liver enzymes and renal status. 04/17/2021: Continue with initial plan due to no improvement of joint pain. 04/18/2021: Continue treatment plan and monitor for changes in pain. 04/19/2021: Stop fentanyl citrate and begin oxycodone HCl 5mg Q4H PRN for pain control. Qualifiers: Qualified Codes: M25.50 - Pain in unspecified joint (4) Elevated liver function tests Status: Acute Assessment & Plan: Elevated liver function tests: re-check liver function labs. MRCP to further evaluate hepatic anatomy. Also being evaluated and treated in severe sepsis assessment and plan. 04/17/2021: Continue to monitor liver enzymes. MRCP came back with no remarkable findings. ALT is within normal limits today at 49. ALP elevated but improved from 225 to 187. AST elevated but improved from 73 to 53. Total bilirubin elevated but improved from 2.3 to 2.0. 04/18/2021: Continue to monitor liver enzymes as levels do not appear to be worsening. Elevation in liver function tests suspected to be a complication from patient's TPN. PICC line has been removed and an oral clear liquid diet has been started and is being tolerated well. (5) HTN (hypertension) Status: Chronic Assessment & Plan: HTN: continue home medications amlodipine 5mg, losartan 100mg, and propanolol 40mg PO for hypertension control. Continue to monitor blood pressure. 04/17/2021: Blood pressure within normal limits today, continue with home medications for blood pressure control. Continue to monitor. 04/18/2021: Continue with home medications and monitoring blood pressure. Qualifiers: Qualified Codes: I10 - Essential (primary) hypertension (6) Fever Status: Acute Assessment & Plan: Fever: being addressed in plan for severe sepsis. Continue to monitor temperature. Discontinue acetaminophen and ibuprofen due to elevated liver enzymes and renal status. Continue sodium chloride 1000ml @ 75ml/hr IV for hydration. 04/17/2021: Max temperature during the past 24hrs is 38.2. Fever is still present but temperature has declined. Continue to monitor. Continue sodium chloride 1000ml @ 75ml/hr IV for hydration. 04/18/2021: Max temperature in the past 24hrs is 39.4. Recent chest CT revealed 5 lobe infiltrates likely secondary to pneumonia. No pulmonary emboli were noted. Hepatosplenomegaly was present as well as small pleural effusions bilaterally. Continue with piperacillin sod/tazobactam sod 4.5gm/sodium chloride 120ml @ 30mls/hr Q8H IV. Beginning anidulafungin 200mg/sodium chloride 250ml @ 82.5mls/hr 1.1 mg/min to cover for possible fungal infection from PICC line and/or atypical pneumonia since fever is still present with antibiotic treatment alone. 04/19/2021: Acetaminophen 650mg Q6H PRN PO for fever reduction. Qualifiers: Qualified Codes: R50.9 - Fever, unspecified (7) Head ache Status: Chronic Assessment & Plan: Head ache: Continue fentanyl citrate 25mcg IV and gabapentin mg PO for pain control. Continue sodium chloride 1000ml @ 75ml/hr IV for hydration. 04/17/21: Head ache is not present today. Continue initial plan and monitor. 04/18/2021: Head ache is not present today. Continue to monitor. Qualifiers: Qualified Codes: R51.9 - Headache, unspecified; G89.29 - Other chronic pain (8) Severe sepsis Status: Acute Assessment & Plan: Severe sepsis: Patient meets 2/4 SIRS criteria: elevated temperature and elevated HR. RR within normal limits, leukocytosis not present. End organ damage of the liver could be present with elevated liver function tests. Re-check liver function tests. Re-check CBC for signs of infection/leukocytosis and to monitor thrombocytopenia. Order tick panel to search for tick-borne illness. Continue to monitor vital signs, back pain, and joint pain. Continue piperacillin sod/tazobactam sod 4.5gm/sodium chloride 120ml @ 30ml/hr Q8H IV for empiric infection treatment. Hold TPN from PICC line. 04/17/21: patient seems to be improving today; tachycardia has resolved, fever is still present but temperature is declining, leukocytosis is absent, and RR has remained within normal limits. Continue with piperacillin sod/tazobactam sod 4.5gm/sodium chloride 120ml @ 30ml/hr Q8H IV since fever still persists and source of infection remains unknown. Tick panel is still pending. PICC line has been removed. Liver enzymes improving. Continue to monitor vital signs and pain. 04/18/2021: Elevated temperature suspected to be caused by either infection from PICC line and/or an atypical pneumonia. Recent chest CT revealed 5 lobe infiltrates likely secondary to pneumonia. No pulmonary emboli were noted. Hepatosplenomegaly was present as well as small pleural effusions bilaterally. Continue with piperacillin sod/tazobactam sod 4.5gm/sodium chloride 120ml @ 30mls/hr Q8H IV. Beginning anidulafungin 200mg/sodium chloride 250ml @ 82.5mls/hr 1.1 mg/min to cover for possible fungal infection from PICC line and/or atypical pneumonia since fever is still present with antibiotic treatment alone. Elevated liver function tests suspected to be a complication of TPN. Tick panel came back negative. (9) D-dimer, elevated Onset Date: ~ 04/16/2021 Status: Acute Assessment & Plan: Elevated D-dimer: assess for possible DVT with doppler US bilaterally. 04/17/2021: doppler US came back negative. DVT ruled-out. Continue to monitor for swelling or change in extremities. 04/18/2021: Recent chest CT revealed no pulmonary emboli. Continue to monitor. (10) Bleeding Status: Chronic Assessment & Plan: 04/18/2021: Stool occult blood test resulted as positive. Bleeding is suspected to be chronic, likely stemming from previous GI procedures or stomach ulcers since hemoglobin level is low but is staying relatively consistent. Continue to monitor hemoglobin levels. (11) GERD with esophagitis Status: Chronic Assessment & Plan: 04/18/2021: Patient resumed a clear liquid diet yesterday and has been tolerating well. Continue pantoprazole sodium 40mg BID PO for GERD and esophagitis prophylaxis. Monitor for signs of pain, discomfort, dysphagia, and esophageal or stomach bleeding. (12) Pneumonia Status: Acute Assessment & Plan: 04/18/2021: Recent chest CT revealed 5 lobe infiltrates likely secondary to pneumonia. No pulmonary emboli were noted. Small pleural effusions bilaterally were present as well. Continue with piperacillin sod/tazobactam sod 4.5gm/sodium chloride 120ml @ 30mls/hr Q8H IV. Started anidulafungin 200mg/sodium chloride 250ml @ 82.5mls/hr 1.1 mg/min to cover for possible fungal infection from PICC line and/or atypical pneumonia since fever is still present with antibiotic treatment alone. Continue fluticasone/salmeterol 1 inhalation RTBID IH and albuterol sulfate 2.5 mg RTQ4H PRN INH for management of shortness of breath. Continue nasal cannula O2 as needed. Continue to monitor for change or worsening of symptoms. 04/19/2021: Consult e-Pulmonology. Continue to provide breathing treatments and providing supplemental oxygen as needed. Continue anidulafungin and piperacillin/tazobactam. Qualifiers: (13) Malnutrition Status: Chronic Assessment & Plan: Consult battery container inspector. Patient is following with surgeon in outpatient setting for abdominal/gastric surgery needs. They placed the PICC line for TPN. PICC line has been removed, patient does not want to resume TPN for nutritional support. Discussed possibility of having a feeding tube placed. Continue to replace potassium. Continue to monitor electrolytes. Qualifiers: Qualified Codes: E46 - Unspecified protein-calorie malnutrition JENNYFER PELAYO DO Apr 24, 2021 10:49
[2021-04-24] MEDS: ONDANSETRON 4 MG/2 ML (SDV) Z0FRAN IVP PRN (12:24)
--- NOTE | 2021-04-24 13:23 | Diagnostic Imaging Report ---
INDICATION: Pneumonia followup. EXAMINATION: Chest 2 views 04/24/2021 COMPARISON: 02/15/2020 FINDINGS: 2 views of the chest Diffuse scattered airspace opacities new since previous examination. The heart and pulmonary vasculature normal. Mildly coarsened interstitial markings seen bilaterally. There are no effusions. There is no pneumothorax. IMPRESSION: 1. Suspected diffuse bilateral predominantly peripheral infiltrates with vague nodularities also noted. These findings are likely on the basis of inflammatory or infectious etiology but short-term followup is recommended to assure complete resolution and exclude lung nodules. Dictated by: Dictated on workstation # [id number]
--- NOTE | 2021-04-24 18:44 | Progress Note ---
JOHNNY NGUYỄN 04/24/21 1844: Progress Note 55 yo female w/ hx of HTN, GERD, JESSICA, PUD, GI bleeds and 3 gastric bypass surgeries presented to the ER on 04/14 with fever, chills, body aches, intermittent HERNANDEZ, diarrhea, SOB with exertion, forgetfulness/disorientation and pain in her back and joints. She was sent home, but reported on 04/15 with w orsening sx and was admitted. Pt had thrombocytopenia (PLT 38), elevated LFTs, and JESSICA (Hgb 10.7) upon admission; oncology/hematology was consulted. The pt had a PICC line placed on 03/24 to improve her nutritional status prior to a surgery scheduled on 04/23 to open a gastric outlet obstruction. After admission, she was given Zosyn IV when a blood culture from her PICC line tip showed Coryneform bacteria. The pt's gallbladder US, MRCP, and venous doppler showed no abnormalities. Pt was placed on oxycodone for pain control at her request. Pt continued to have a fever and had an episode of severe SOB (desat to 87%) overnight on 04/17. Chest/thorax CTA on 04/18 showed 5 lobe infiltrates secondary to possible pneumonia, as well as hepatospenomegaly. Adulafungin was added to her regimen to treat infxn. With aggressive trt of her infxn, the pt's platelet count, SOB, fever, and LFTs improved. Surgery was consulted since the pt was experincing abd pain and had a hx of a positive stool occult blood test (though a subsequent test was negative). Surgery recommended conservative treatment and to follow up with Dr. Mir, her gastric surgeon. Pt received potassium supplementation during her stay, but refused TPN, preferring a CLD. Pt is being discharged without need for supplemental oxygen and will continue taking Augmentin and Diflucan at home. Her oxycodone was reduced to Q8hr prior to discharge. She has support from her SO at home and will f/u with Dr. Mir on 04/30 at 1:30pm. LICHA PELAYO DO 04/25/21 0635: Supervisory-Addendum Brief Verification & Attestation Participated in pt care: history, MDM, physical Personally performed: exam, history, MDM, supervision of care Care discussed with: Medical Student Procedures: n/a Results interpretation: Verified all documentation Verification and Attestation of Medical Student E/M Service A medical student performed and documented this service in my presence. I reviewed and verified all information documented by the medical student and made modifications to such information, when appropriate. I personally performed the physical exam and medical decision making. Licha Pelayo, Apr 25, 2021,06:35 JOHNNY NGUYỄN Apr 24, 2021 18:44 LICHA PELAYO DO Apr 25, 2021 06:35
== END 2021-04-24 17:24 | disposition home or self-care (01) | DRG 314 ==
LOC: ER 13:23 → 4TH 17:14
PROVIDERS: ADMIT Internal Medicine; ATTEND Internal Medicine
DX: T80.211A Bloodstream infection due to central venous catheter, initial encounter (principal); A41.89 Other specified sepsis; R65.20 Severe sepsis without septic shock; J18.9 Pneumonia, unspecified organism; J96.91 Respiratory failure, unspecified with hypoxia; E46 Unspecified protein-calorie malnutrition; Z68.1 Body mass index [BMI] 19.9 or less, adult; K91.89 Other postprocedural complications and disorders of digestive system; K31.1 Adult hypertrophic pyloric stenosis; I38 Endocarditis, valve unspecified; Z20.822 Contact with and (suspected) exposure to COVID-19; D69.6 Thrombocytopenia, unspecified; J45.909 Unspecified asthma, uncomplicated; I10 Essential (primary) hypertension; M41.9 Scoliosis, unspecified; K21.00 Gastro-esophageal reflux disease with esophagitis, without bleeding; R73.9 Hyperglycemia, unspecified; R19.5 Other fecal abnormalities; R16.2 Hepatomegaly with splenomegaly, not elsewhere classified; Z79.82 Long term (current) use of aspirin; Z88.1 Allergy status to other antibiotic agents; Z88.2 Allergy status to sulfonamides; Z88.7 Allergy status to serum and vaccine
CPT/HCPCS: 36415; 71046; 71275; 74181; 76705; 80048; 80053; 80074; 80076; 82274; 82728; 82947; 83605; 83615; 83735; 85007; 85025; 85027; 85045; 85055; 85379; 85384; 85610; 85652; 85730; 86141; 86618; 86666; 86668; 86757; 86850; 86900; 86901; 87040; 87070; 87077; 87635; 93970; 94640; 94664; 94760; 96361; 96365; 96375; 96376

== ENCOUNTER 2021-05-21 18:25 | Emergency (ER) | payer OTHER ==
[~2021-05-21] VITALS: Ht 152 cm; Wt 44.0 kg
[~2021-05-21 18:25] MED LIST changes: +ACET-2267 PO; +AMLO-250 PO; +AMOX-358 PO; +ATOR20TA66 PO; +CHOL100048 PO; +CLIN-144 PO; -CLIN300C12 PO; +FLUC100T PO; +LORA-405 PO; +LOSA100T57 PO; +OXC5T PO; +PROP40TA5 PO; +TRAM50TA3 PO
[2021-05-21] MEDS ORDERED: PROMETHAZINE INJ 25 MG/ML (PHENERGAN) AMP IVP STA (18:52)
--- NOTE | 2021-05-21 18:54 | ED GI ---
General Chief Complaint: Abdominal/GI Problems Stated Complaint: VOMITING Source of Information: Patient History of Present Illness Date Seen by Provider: May 21, 2021 Time Seen by Provider: 18:47 Initial Comments PT ARRIVES VIA POV FROM HOME PT STATES SHE HAS GASTRIC OUTLET OBSTRUCTION--IS CHRONIC/ONGOING PROBLEM STATES SHE HAS SEEN DR. LOMELI / MILKING WORKER, AND DR. SUAREZ / SURGEON WITH [facility] [place] FOR THIS. PT STATES SHE IS "SUPPOSED TO HAVE SURGERY AT " BUT THIS HAS NOT BEEN SCHEDULED DUE TO PATIENT NOT HAVING INSURANCE. C/O CHRONIC NAUSEA/VOMITING/DIARRHEA, WORSE FOR THE LAST 3-4 DAYS STATES SHE HAS NOT BEEN ABLE TO KEEP DOWN LIQUIDS FOR 3-4 DAYS STATES SHE WILL GET A STOMACHE ACHE RIGHT BEFORE SHE HAS DIARRHEA--FOR THE LAST 3-4 DAYS C/O DECREASED URINE OUTPUT FOR THE LAST 3-4 DAYS, HAS VOIDED 3 TIMES TODAY NO FEVER SYMPTOMS NOT ANY DIFFERENT TODAY HAS NOT SOUGHT CARE UNTIL TODAY PT STATES SHE RAN OUT OF PHENERGAN 2-3 DAYS AGO. STATES ZOFRAN DOESN'T WORK PT TAKES PROTONIX SOMETIMES, BUT NOT TODAY PT WANTING FENTANYL SOON SHE ARRIVES PT ADMITTED 04/15-04/24 --WAS RECEIVING TPN VIA PICC LINE, WHICH GOT INFECTED, THEN SHE DEVELOPED PNEUMONIA. 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 D[facility]LLAN Allergies and Home Medications Allergies Coded Allergies: Influenza Virus Vaccines (Verified Allergy, Unknown, 04/15/21) metronidazole (Verified Allergy, Unknown, 04/15/21) Sulfa (Sulfonamide Antibiotics) (Verified Adverse Reaction, Unknown, 04/15/21) Patient Home Medication List Acetaminophen (Tylenol Extra Strength) 500 Mg Tablet, 1,000 MG PO Q8H PRN for PAIN-MILD (1-4), (Reported) Entered as Reported by: ASHLEY NÚÑEZ on 04/16/21 1256 Amlodipine Besylate (Amlodipine Besylate) 5 Mg Tablet, 5 MG PO HS, (Reported) Entered as Reported by: ASHLEY NÚÑEZ on 04/16/21 1238 Amoxicillin/Potassium Clav (Augmentin 875-125 Tablet) 1 Each Tablet, 1 EACH PO BID Prescribed by: JENNYEFR PELAYO on 04/24/21 1048 Aspirin/Acetaminophen/Caffeine (Excedrin Extra Strength Caplet) 1 Each Tablet, 3-4 EACH PO DAILY PRN for HEADACHE, (Reported) Entered as Reported by: MODESTO BOOKER on 03/08/20 0921 Atorvastatin Calcium (Atorvastatin Calcium) 20 Mg Tablet, 20 MG PO HS, (Reported) Entered as Reported by: ASHLEY NÚÑEZ on 04/16/21 1240 Budesonide/Formoterol Fumarate (Symbicort 160-4.5 Mcg Inhaler) 10.2 Gm Hfa.aer.ad, 2 PUFF IH BID PRN for SHORTNESS OF BREATH, (Reported) Entered as Reported by: MODESTO BOOKER on 03/08/20 0916 Cholecalciferol (Vitamin D3) (Vitamin D3) 25 Mcg Capsule, 25 MCG PO DAILY, (Reported) Entered as Reported by: ASHLEY NÚÑEZ on 04/16/21 1253 Cyanocobalamin (Vitamin B-12) (B-12) 500 Mcg Tablet, 500 MCG PO DAILY, (Reported) Entered as Reported by: MARIANNA MYERS on 11/29/19 1520 Fluconazole (Diflucan) 100 Mg Tablet, 100 MG PO DAILY Prescribed by: JENNYFER PELAYO on 04/24/21 1048 Gabapentin (Gabapentin) 600 Mg Tablet, 600 MG PO 0800,1200,1700, (Reported) Entered as Reported by: SHIKHA MONTES on 11/30/19 1133 Lorazepam (Ativan) 1 Mg Tablet, 1 MG PO HS PRN for ANXIETY, (Reported) Entered as Reported by: ASHLEY NÚÑEZ on 04/16/21 1243 Losartan Potassium (Losartan Potassium) 100 Mg Tablet, 100 MG PO DAILY, (Reported) Entered as Reported by: ASHLEY NÚÑEZ on 04/16/21 1246 Oxycodone Hcl (Oxyir Tablet) 5 Mg Tab, 5 MG PO Q8H PRN for PAIN-SEVERE (8-10) Prescribed by: JENNYFER PELAYO on 04/24/21 1048 Pantoprazole Sodium (Protonix) 40 Mg Tablet.dr, 40 MG PO BID, (Reported) Entered as Reported by: SHIKHA MONTES on 11/30/19 1133 Promethazine HCl (Promethazine Tablet) 25 Mg Tablet, 25 MG PO TID PRN for NAUSEA/VOMITING, (Reported) Entered as Reported by: SOLOMON MENDIETA on 11/29/19 0238 Propranolol HCl (Propranolol HCl) 40 Mg Tablet, 40 MG PO BID, (Reported) Entered as Reported by: ASHLEY NÚÑEZ on 04/16/21 1240 Review of Systems Review of Systems Constitutional: no symptoms reported; No chills, No diaphoresis, No dizziness, No fever EENTM: No Symptoms Reported Respiratory: No Symptoms Reported Cardiovascular: No Symptoms Reported Gastrointestinal: See HPI, Abdominal Pain, Diarrhea, Nausea, Vomiting Genitourinary: See HPI Musculoskeletal: no symptoms reported Skin: no symptoms reported Psychiatric/Neurological: No Symptoms Reported Endocrine: No Symptoms Reported Hematologic/Lymphatic: No Symptoms Reported Past Puxehjg-Njjulx-Iymesv Hx Patient Social History Tobacco Use?: Yes Tobacco type used: Cigarettes Smoking Status: Current Everyday Smoker Substance use?: No Alcohol Use?: No Immunizations Up To Date Tetanus Booster (TDap): More than 5yrs PED Vaccines UTD: Yes Seasonal Allergies Seasonal Allergies: Yes Past Medical History Surgeries: Yes (partial gastrectomy, COLONSCOPY/EGD) Abdominal, Appendectomy, Hysterectomy Respiratory: Yes Asthma Currently Using CPAP: No Currently Using BIPAP: No Cardiac: Yes Hypertension, Valvular Heart Disease Neurological: Yes (RESTLESS LEG SYNDROME) Headaches /Migraines 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: Yes 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, 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: Hysterectomy Sexually Transmitted Disease: No HIV/AIDS: No Genitourinary: No Gastrointestinal: Yes ("GASTRIC OUTLET OBSTRUCTION" --NO SURGERY OF 05/21/21) Gastroesophageal Reflux, Gastrointestinal Bleed, Obstructive Bowel, Ulcer Musculoskeletal: Yes Scoliosis, Chronic Back Pain Endocrine: Yes (hypoglycemia) HEENT: No Loss of Vision: Denies Hearing Impairment: Denies Cancer: No Psychosocial: No Integumentary: No Blood Disorders: Yes (anemia) Adverse Reaction/Blood Tranf: No Family Medical History Cancer of colon GRANDMOTHER Family history: Diabetes mellitus 19 FATHER Family history: Hypertension 19 MOTHER Stroke 19 MOTHER No Pertinent Family Hx SOCIAL HISTORY: -SMOKES 1 PPD -ETOH--DENIES USE -DRUGS --DENIES USE Physical Exam Vital Signs Vital Signs - First Documented 05/21/21 18:45 Temp 36.3 Pulse 91 B/P (MAP) 153/96 (115) Pulse Ox 99 O2 Delivery Room Air Capillary Refill : Height/Weight/BMI Height: 5'0" Weight: 106lbs. 0.0oz. 48.181130ms; 20.36 BMI Method:Stated General Appearance: WD/WN, no apparent distress, thin, other (FULL, HEAVY MAKEUP. DOES NOT APPEAR ILL OR TO BE IN ANY DISCOMFORT OR DISTRESS. WALKS UPRIGHT AND MOVES WITHOUT DIFFICULTY) HEENT: other (ORAL MUCOSA MOIST) Neck: normal inspection Respiratory: normal breath sounds, no respiratory distress, no accessory muscle use Cardiovascular: regular rate, rhythm, no murmur Gastrointestinal: normal bowel sounds, non tender, soft, no organomegaly, no pulsatile mass Extremities: normal inspection Back: normal inspection Neurologic/Psychiatric: sharepoint consultant II-XII nml as tested, no motor/sensory deficits, alert, normal mood/affect, oriented x 3 Skin: normal color, warm/dry, other (SORES/SCARS/SCABS TO UPPER BACK, FOREARMS, FACE) Progress/Results/Core Measures Results/Orders Lab Results Laboratory Tests Test 05/21/21 18:55 05/21/21 19:00 05/21/21 19:14 Range/Units White Blood Count 10.2 4.3-11.0 10^3/uL Red Blood Count 4.60 3.80-5.11 10^6/uL Hemoglobin 14.5 11.5-16.0 g/dL Hematocrit 45 35-52 % Mean Corpuscular Volume 98 80-99 fL Mean Corpuscular Hemoglobin 32 25-34 pg Mean Corpuscular Hemoglobin Concent 32 32-36 g/dL Red Cell Distribution Width 13.8 10.0-14.5 % Platelet Count 315 130-400 10^3/uL Mean Platelet Volume 9.5 9.0-12.2 fL Immature Granulocyte % (Auto) 1 % Neutrophils (%) (Auto) 65 42-75 % Lymphocytes (%) (Auto) 25 12-44 % Monocytes (%) (Auto) 7 0-12 % Eosinophils (%) (Auto) 2 0-10 % Basophils (%) (Auto) 1 0-10 % Neutrophils # (Auto) 6.7 1.8-7.8 10^3/uL Lymphocytes # (Auto) 2.5 1.0-4.0 10^3/uL Monocytes # (Auto) 0.7 0.0-1.0 10^3/uL Eosinophils # (Auto) 0.2 0.0-0.3 10^3/uL Basophils # (Auto) 0.1 0.0-0.1 10^3/uL Immature Granulocyte # (Auto) 0.1 0.0-0.1 10^3/uL Sodium Level 144 135-145 MMOL/L Potassium Level 2.8 L 3.6-5.0 MMOL/L Chloride Level 107 98-107 MMOL/L Carbon Dioxide Level 24 21-32 MMOL/L Anion Gap 13 5-14 MMOL/L Blood Urea Nitrogen 7 7-18 MG/DL Creatinine 0.63 0.60-1.30 MG/DL Estimat Glomerular Filtration Rate 99 BUN/Creatinine Ratio 11 Glucose Level 91 70-105 MG/DL Calcium Level 8.9 8.5-10.1 MG/DL Corrected Calcium 9.2 8.5-10.1 MG/DL Magnesium Level 2.1 1.6-2.4 MG/DL Total Bilirubin 0.4 0.1-1.0 MG/DL Aspartate Amino Transf (AST/SGOT) 20 5-34 U/L Alanine Aminotransferase (ALT/SGPT) 9 0-55 U/L Alkaline Phosphatase 140 H 40-136 U/L Total Protein 7.1 6.4-8.2 GM/DL Albumin 3.6 3.2-4.5 GM/DL Amylase Level 104 25-125 U/L Lipase 58 8-78 U/L Serum Alcohol < 10 <10 MG/DL Urine Color YELLOW Urine Clarity SL CLOUDY Urine pH 6.0 5-9 Urine Specific [place] >=1.030 1.016-1.022 Urine Protein 1+ H NEGATIVE Urine Glucose (UA) NEGATIVE NEGATIVE Urine Ketones NEGATIVE NEGATIVE Urine Nitrite NEGATIVE NEGATIVE Urine Bilirubin NEGATIVE NEGATIVE Urine Urobilinogen 0.2 < = 1.0 MG/DL Urine Leukocyte Esterase NEGATIVE NEGATIVE Urine RBC (Auto) TRACE-I H NEGATIVE Urine RBC 2-5 H /HPF Urine WBC 5-10 H /HPF Urine Squamous Epithelial Cells 2-5 /HPF Urine Crystals PRESENT H /LPF Urine Calcium Oxalate Crystals FEW H /LPF Urine Bacteria LARGE H /HPF Urine Casts NONE /LPF Urine Mucus MODERATE H /LPF Urine Culture Indicated YES Urine Opiates Screen NEGATIVE NEGATIVE Urine Oxycodone Screen NEGATIVE NEGATIVE Urine Methadone Screen NEGATIVE NEGATIVE Urine Propoxyphene Screen NEGATIVE NEGATIVE Urine Barbiturates Screen NEGATIVE NEGATIVE Ur Tricyclic Antidepressants Screen NEGATIVE NEGATIVE Urine Phencyclidine Screen NEGATIVE NEGATIVE Urine Amphetamines Screen NEGATIVE NEGATIVE Urine Methamphetamines Screen NEGATIVE NEGATIVE Urine Benzodiazepines Screen NEGATIVE NEGATIVE Urine Cocaine Screen NEGATIVE NEGATIVE Urine Cannabinoids Screen NEGATIVE NEGATIVE Influenza Type A (RT-PCR) Not Detected Not Detecte Influenza Type B (RT-PCR) Not Detected Not Detecte SARS-CoV-2 RNA (RT-PCR) Not Detected Not Detecte My Orders Orders - LIZ LIRIANO DO Ed Iv/Invasive Line Start (05/21/21 18:52) Monitor-Rhythm Ecg Trace Only (05/21/21 18:52) Amylase (05/21/21 18:52) Cbc With Automated Diff (05/21/21 18:52) Comprehensive Metabolic Panel (05/21/21 18:52) Lipase (05/21/21 18:52) Magnesium (05/21/21 18:52) Ua Culture If Indicated (05/21/21 18:52) Ed Iv/Invasive Line Start (05/21/21 18:52) Lactated Ringers (Lr 1000 Ml Iv Solution (05/21/21 19:00) Promethazine Injection (Phenergan Injec (05/21/21 18:52) Influenza A And B By Pcr (05/21/21 19:04) Covid 19 Inhouse Test (05/21/21 19:04) Alcohol (05/21/21 19:22) Drug Screen Stat (Urine) (05/21/21 19:22) Ct Abdomen/Pelvis W (05/21/21 19:25) Acute Abd Series (05/21/21 19:25) Urine Culture (05/21/21 19:00) Iohexol Injection (Omnipaque 350 Mg/Ml 1 (05/21/21 20:30) Received Contrast (Hold Metformin- Contr (05/21/21 20:30) Ns (Ivpb) (Sodium Chloride 0.9% Ivpb Bag (05/21/21 20:30) Ceftriaxone 1 Gm Iv (Pre-Mix) (Rocephin (05/21/21 23:17) Rx-Promethazine Hcl (Rx-Phenergan Supp) (05/21/21 23:17) Medications Given in ED Current Medications Medications Dose Ordered Sig/Flora Route Start Time Stop Time Status Last Admin Dose Admin Iohexol 100 ml ONCE ONCE IV 05/21/21 20:30 05/21/21 20:31 DC 05/21/21 21:44 66 ML Lactated Ringer's 1,000 ml @ 0 mls/hr Q0M ONCE IV 05/21/21 19:00 05/21/21 19:01 DC 05/21/21 19:10 1,000 MLS/HR Sodium Chloride 100 ml ONCE ONCE IV 05/21/21 20:30 05/21/21 20:31 DC 05/21/21 21:44 80 ML Vital Signs/I&O 05/21/21 18:45 Temp 36.3 Pulse 91 B/P (MAP) 153/96 (115) Pulse Ox 99 O2 Delivery Room Air Progress Progress Note : Progress Note GIVEN IV FLUIDS AND PHENERGAN NO VOMITING OR DIARRHEA DURING ER STAY MUCH DELAY IN OBTAINING AND THEN RECEIVING REPORT ON CT SCAN Departure Impression Primary Impression: REPORTED NAUSEA, VOMITING AND DIARRHEA Additional Impressions: HX OF GASTRIC OUTLET OBSTRUCTION UTI (urinary tract infection) Hypokalemia Disposition: HOME, SELF-CARE Condition: Stable Departure-Patient Inst. Decision time for Depature: 23:17 Referrals: [facility] (PCP) Primary Care Physician SONNY PARRISH (Family) Primary Care Physician Patient Instructions: Hypokalemia (DC), Nausea and Vomiting, Adult (DC), Urinary Tract Infection, Adult ED Add. Discharge Instructions: CLEAR LIQUIDS--WATER, BROTH,JELLO, GATORADE BRATS DIET--BANANAS, RICE, APPLESAUCE, TOAST, SALTINES CONTINUE YOUR REGULAR MEDICATIONS PRESCRIBED FOLLOW UP WITH [facility] OR WITH YOUR DOCTORS IN [place] THIS WEEK FOR FURTHER C ARE--CALL IN AM TO SCHEDULE APPOINTMENT All discharge instructions reviewed with patient and/or family. Voiced understanding. Scripts Promethazine HCl (Promethazine Suppository) 25 Mg Supp.rect 25 MG RC Q6 for Nausea/Vomiting, #10 SUPP.RECT Prov: LIZ LIRIANO DO 05/21/21 Nitrofurantoin Monohyd/M-Cryst (Macrobid 100 mg Capsule) 100 Mg Capsule 1 TAB PO BID, #20 CAP Prov: LIZ LIRIANO DO 05/21/21 LIZ LIRIANO DO May 21, 2021 18:54
[2021-05-21] MEDS ORDERED: LACTATED RINGERS 1,000 ML IV ONE (19:00)
[2021-05-21 19:09] LABS: BILIRUBIN,URINE NEGATIVE (NEGATIVE); CLARITY,URINE SL CLOUDY; COLOR,URINE YELLOW; GLUCOSE, URINE (UA) NEGATIVE (NEGATIVE); KETONES,URINE NEGATIVE (NEGATIVE); LEUKOCYTE ESTERASE ,URINE NEGATIVE (NEGATIVE); NITRITE,URINE NEGATIVE (NEGATIVE); PROTEIN,URINE 1+ (NEGATIVE)
[2021-05-21 19:11] LABS: BASOPHILS # (AUTO) 0.1 10^3/uL (0.0-0.1); BASOPHILS % (AUTO) 1 % (0-10); EOSINOPHILS # (AUTO) 0.2 10^3/uL (0.0-0.3); EOSINOPHILS % (AUTO) 2 % (0-10); HEMATOCRIT 45 % (35-52); HEMOGLOBIN 14.5 g/dL (11.5-16.0); LYMPHOCYTES # (AUTO) 2.5 10^3/uL (1.0-4.0); LYMPHOCYTES % (AUTO) 25 % (12-44); MEAN CORPUSCULAR HEMOGLOBIN 32 pg (25-34); MEAN CORPUSCULAR HGB CONC 32 g/dL (32-36); MEAN CORPUSCULAR VOLUME 98 fL (80-99); MEAN PLATELET VOLUME 9.5 fL (9.0-12.2); MONOCYTES # (AUTO) 0.7 10^3/uL (0.0-1.0); MONOCYTES % (AUTO) 7 % (0-12); NEUTROPHILS # (AUTO) 6.7 10^3/uL (1.8-7.8); NEUTROPHILS % (AUTO) 65 % (42-75); PLATELET COUNT 315 10^3/uL (130-400); WHITE BLOOD COUNT 10.2 10^3/uL (4.3-11.0)
[2021-05-21 19:16] LABS: ALBUMIN 3.6 GM/DL (3.2-4.5); POTASSIUM 2.8 MMOL/L (3.6-5.0)
[2021-05-21 19:18] LABS: CALCIUM 8.9 MG/DL (8.5-10.1)
[2021-05-21 19:19] LABS: TOTAL PROTEIN 7.1 GM/DL (6.4-8.2)
[2021-05-21 19:20] LABS: BILIRUBIN,TOTAL 0.4 MG/DL (0.1-1.0)
[2021-05-21 19:22] LABS: CREATININE SERUM 0.63 MG/DL (0.60-1.30)
[2021-05-21 19:25] LABS: MAGNESIUM 2.1 MG/DL (1.6-2.4)
[2021-05-21 19:33] LABS: BACTERIA,URINE LARGE /HPF
[2021-05-21 19:34] LABS: CALCIUM OXALATE CRYSTALS,UR FEW /LPF
[2021-05-21 19:39] LABS: AMPHETAMINE SCREEN, URINE NEGATIVE (NEGATIVE); BARBITURATE SCREEN URINE NEGATIVE (NEGATIVE); BENZODIAZEPINES SCREEN URINE NEGATIVE (NEGATIVE); CANNABINOID SCREEN, URINE NEGATIVE (NEGATIVE); COCAINE SCREEN URINE NEGATIVE (NEGATIVE); METHADONE STAT NEGATIVE (NEGATIVE); METHAMPHETAMINE SCREEN URINE S NEGATIVE (NEGATIVE); OPIATE SCREEN URINE NEGATIVE (NEGATIVE); OXYCODONE STAT NEGATIVE (NEGATIVE); PROPOXYPHENE STAT NEGATIVE (NEGATIVE); TRICYCLIC ANTIDEPRESSANTS SCRE NEGATIVE (NEGATIVE)
[2021-05-21] MEDS ORDERED: HOLD METFORMIN - RECEIVED CONTRAST 20 ML VIAL IV SCH (20:30)
[2021-05-21] MEDS ORDERED: IOHEXOL 350 MG/ML 100 ML (OMNIPAQUE 350) VIAL IV ONE (20:30)
[2021-05-21] MEDS ORDERED: NS 100 ML (IVPB) BAG IV ONE (20:30)
--- NOTE | 2021-05-21 23:13 | Diagnostic Imaging Report ---
PROCEDURE: CT abdomen and pelvis with contrast. TECHNIQUE: Multiple contiguous axial images were obtained through the abdomen and pelvis after administration of intravenous contrast. Auto Exposure Controls were utilized during the CT exam to meet ALARA standards for radiation dose reduction. All CT scans use one or more of the following dose optimizing techniques: automated exposure control, MA and/or KvP adjustment based on patient size and exam type or iterative reconstruction. INDICATION: Abdominal pain. Nausea and vomiting. COMPARISON: 04/14/2021. FINDINGS: Postoperative findings of a gastric bypass. No evidence of leak. No free intraperitoneal air or fluid. The liver, gallbladder, pancreas, spleen, adrenals, kidneys, collecting systems and bladder are negative. Hysterectomy. The appendix is not identified and may be surgically absent. No suspicious inflammatory findings in the region of the cecum. No lymphadenopathy. No evidence of bowel obstruction. No acute osseous findings. Evaluation of the pelvis is limited by motion. IMPRESSION: 1. No acute CT findings in the abdomen or pelvis. 2. Postoperative findings of a gastric bypass. No evidence of leak. Dictated by: Dictated on workstation # [id number]
[2021-05-21] MEDS ORDERED: cefTRIAXone 1 GM PRE-MIX 50 ML IV STA (23:17)
[2021-05-21] MEDS ORDERED: RX-PHENERGAN 25 MG SUPP PPK#3 PR STA (23:17)
[2021-05-21] MEDS ORDERED: NITR-65 PO (23:23)
[2021-05-21] MEDS ORDERED: PROM25SU44 RC (23:23)
[2021-05-21] MEDS ORDERED: KCL 10 MEQ TAB (MICRO K) PO ONE (23:30)
--- NOTE | 2021-05-21 23:36 | Diagnostic Imaging Report ---
EXAM: ACUTE ABD SERIES INDICATION: Abdominal pain. COMPARISON: CT abdomen and pelvis with IV contrast 05/21/2021. FINDINGS: Normal heart size and pulmonary vascularity. No focal pulmonary opacity. No pleural effusion or pneumothorax. No free intraperitoneal air. Nonspecific bowel gas pattern. Suture lines in the left abdomen. Contrast within the collecting systems and bladder are likely due to the recent CT exam. IMPRESSION: No acute radiographic findings in the abdomen. Dictated by: Dictated on workstation # [id number]
[2021-05-22 00:25] VITALS: BP 140/98
== END 2021-05-22 00:25 | disposition home or self-care (01) ==
LOC: EDUNIT# 18:25 → ER 18:26
DX: R11.2 Nausea with vomiting, unspecified (principal); R19.7 Diarrhea, unspecified; N39.0 Urinary tract infection, site not specified; E87.6 Hypokalemia; J45.909 Unspecified asthma, uncomplicated; I10 Essential (primary) hypertension; K21.9 Gastro-esophageal reflux disease without esophagitis; G89.29 Other chronic pain; M54.9 Dorsalgia, unspecified; F17.210 Nicotine dependence, cigarettes, uncomplicated; Z20.822 Contact with and (suspected) exposure to COVID-19; Z79.82 Long term (current) use of aspirin; Z79.891 Long term (current) use of opiate analgesic; Z79.899 Other long term (current) drug therapy
CPT/HCPCS: 74022; 74177; 80053; 80306; 81000; 82150; 83690; 83735; 85025; 87077; 87088; 87186; 87636; 93041; 99284; G0480; 36415; 80320

== ENCOUNTER 2021-06-21 16:33 | Emergency (ER) | payer OTHER ==
[~2021-06-21] VITALS: Ht 152 cm; Wt 43.0 kg
[~2021-06-21 16:33] MED LIST changes: +CYCL10TA25; +CYCL10TA25 PO; -CYCL10TA9; -CYCL10TA9 PO; +DICY20TA PO; -DICY20TA10 PO; +POTA-179 PO; -POTA20TA15 PO; +PROM25SU44 RC
[2021-06-21] MEDS ORDERED: ONDANSETRON 4 MG/2 ML (SDV) Z0FRAN IVP ONE (17:00)
[2021-06-21] MEDS ORDERED: LACTATED RINGERS 1,000 ML IV SCH (17:00)
[2021-06-21 17:04] LABS: BASOPHILS # (AUTO) 0.1 10^3/uL (0.0-0.1); BASOPHILS % (AUTO) 1 % (0-10); EOSINOPHILS # (AUTO) 0.1 10^3/uL (0.0-0.3); EOSINOPHILS % (AUTO) 2 % (0-10); HEMATOCRIT 47 % (35-52); HEMOGLOBIN 15.4 g/dL (11.5-16.0); LYMPHOCYTES # (AUTO) 2.5 10^3/uL (1.0-4.0); LYMPHOCYTES % (AUTO) 36 % (12-44); MEAN CORPUSCULAR HEMOGLOBIN 31 pg (25-34); MEAN CORPUSCULAR HGB CONC 33 g/dL (32-36); MEAN CORPUSCULAR VOLUME 95 fL (80-99); MEAN PLATELET VOLUME 9.8 fL (9.0-12.2); MONOCYTES # (AUTO) 0.6 10^3/uL (0.0-1.0); MONOCYTES % (AUTO) 8 % (0-12); NEUTROPHILS # (AUTO) 3.7 10^3/uL (1.8-7.8); NEUTROPHILS % (AUTO) 53 % (42-75); PLATELET COUNT 295 10^3/uL (130-400)
[2021-06-21 17:07] LABS: ALBUMIN 3.6 GM/DL (3.2-4.5)
[2021-06-21 17:08] LABS: CALCIUM 9.3 MG/DL (8.5-10.1)
[2021-06-21 17:10] LABS: TOTAL PROTEIN 7.3 GM/DL (6.4-8.2)
[2021-06-21 17:11] LABS: BILIRUBIN,TOTAL 0.2 MG/DL (0.1-1.0)
[2021-06-21 17:13] LABS: CREATININE SERUM 0.66 MG/DL (0.60-1.30)
[2021-06-21] MEDS ORDERED: fentaNYL INJ 100 MCG/2 ML AMP IVP ONE ×2 (17:15→19:45)
[2021-06-21 17:17] LABS: POTASSIUM 2.5 MMOL/L (3.6-5.0)
--- NOTE | 2021-06-21 17:19 | ED Abdominal Pain ---
General Chief Complaint: Abdominal/GI Problems Stated Complaint: VOMITING/DIARRHEA Nursing Triage Note: ARRIVED VIA AMB TO ROOM 06 WITH COMPLAINTS OF ABD PAIN AND VOMITING. STATES SHE THINKS SHE HAS A GASTRIC OBSTRUCTION. Source of Information: Patient Exam Limitations: No Limitations History of Present Illness Date Seen by Provider: Jun 21, 2021 Time Seen by Provider: 17:17 Initial Comments To ER with reports of epigastric abdominal pain and vomiting onset today. She is on a liquid diet following gastric outlet obstruction as reported by her surgeon Dr. Garcia at [facility] in [place]. She has had 3 gastric bypass surgeries. She continues to pass gas today and have one episode of diarrhea. No fevers or chills. She is not currently nauseated but she does have some epigastric abdominal pain. Timing/Duration: 1-2 Days Severity/Quality: Moderate Location: Epigastric Radiation: No Radiation Activities at Onset: None Associated Symptoms: Nausea/Vomiting Allergies and Home Medications Allergies Coded Allergies: Influenza Virus Vaccines (Verified Allergy, Unknown, 04/15/21) metronidazole (Verified Allergy, Unknown, 04/15/21) Sulfa (Sulfonamide Antibiotics) (Verified Adverse Reaction, Unknown, 04/15/21) Patient Home Medication List Home Medication List Reviewed: Yes Acetaminophen (Tylenol Extra Strength) 500 Mg Tablet, 1,000 MG PO Q8H PRN for PAIN-MILD (1-4), (Reported) Entered as Reported by: ASHLEY NÚÑEZ on 04/16/21 1256 Amlodipine Besylate (Amlodipine Besylate) 5 Mg Tablet, 5 MG PO HS, (Reported) Entered as Reported by: ASHLEY NÚÑEZ on 04/16/21 1238 Amoxicillin/Potassium Clav (Augmentin 875-125 Tablet) 1 Each Tablet, 1 EACH PO BID Prescribed by: JENNYFER PELAYO on 04/24/21 1048 Aspirin/Acetaminophen/Caffeine (Excedrin Extra Strength Caplet) 1 Each Tablet, 3-4 EACH PO DAILY PRN for HEADACHE, (Reported) Entered as Reported by: MODESTO BOOKER on 03/08/20 0921 Atorvastatin Calcium (Atorvastatin Calcium) 20 Mg Tablet, 20 MG PO HS, (Reported) Entered as Reported by: ASHLEY NÚÑEZ on 04/16/21 1240 Budesonide/Formoterol Fumarate (Symbicort 160-4.5 Mcg Inhaler) 10.2 Gm Hfa.aer.ad, 2 PUFF IH BID PRN for SHORTNESS OF BREATH, (Reported) Entered as Reported by: MODESTO BOOKER on 03/08/20 0916 Cholecalciferol (Vitamin D3) (Vitamin D3) 25 Mcg Capsule, 25 MCG PO DAILY, (Reported) Entered as Reported by: ASHLEY NÚÑEZ on 04/16/21 1253 Cyanocobalamin (Vitamin B-12) (B-12) 500 Mcg Tablet, 500 MCG PO DAILY, (Reported) Entered as Reported by: MARIANNA MYERS on 11/29/19 1520 Fluconazole (Diflucan) 100 Mg Tablet, 100 MG PO DAILY Prescribed by: JENNYFER PELAYO on 04/24/21 1048 Gabapentin (Gabapentin) 600 Mg Tablet, 600 MG PO 0800,1200,1700, (Reported) Entered as Reported by: SHIKHA MONTES on 11/30/19 1133 Lorazepam (Ativan) 1 Mg Tablet, 1 MG PO HS PRN for ANXIETY, (Reported) Entered as Reported by: ASHLEY NÚÑEZ on 04/16/21 1243 Losartan Potassium (Losartan Potassium) 100 Mg Tablet, 100 MG PO DAILY, (Reported) Entered as Reported by: ASHLEY NÚÑEZ on 04/16/21 1246 Nitrofurantoin Monohyd/M-Cryst (Macrobid 100 mg Capsule) 100 Mg Capsule, 1 TAB PO BID Prescribed by: LIZ LIRIANO on 05/21/21 2323 Ondansetron (Ondansetron Odt) 8 Mg Tab.rapdis, 8 MG PO Q6H PRN for NAUSEA-1ST LINE Prescribed by: RAN MERRITT on 06/21/21 1906 Oxycodone Hcl (Oxyir Tablet) 5 Mg Tab, 5 MG PO Q8H PRN for PAIN-SEVERE (8-10) Prescribed by: JENNYFER PELAYO on 04/24/21 1048 Pantoprazole Sodium (Protonix) 40 Mg Tablet.dr, 40 MG PO BID, (Reported) Entered as Reported by: SHIKHA MONTES on 11/30/19 1133 Promethazine HCl (Promethazine Tablet) 25 Mg Tablet, 25 MG PO TID PRN for NAUSEA/VOMITING, (Reported) Entered as Reported by: SOLOMON MENDIETA on 11/29/19 0238 Promethazine HCl (Promethazine Suppository) 25 Mg Supp.rect, 25 MG RC Q6 Prescribed by: LIZ LIRIANO on 05/21/21 9883 Propranolol HCl (Propranolol HCl) 40 Mg Tablet, 40 MG PO BID, (Reported) Entered as Reported by: ASHLEY NÚÑEZ on 04/16/21 1240 Review of Systems Review of Systems Constitutional: see HPI EENTM: No Symptoms Reported Respiratory: No Symptoms Reported Cardiovascular: No Symptoms Reported Gastrointestinal: See HPI, Abdominal Pain, Diarrhea, Nausea, Vomiting Genitourinary: No Symptoms Reported Musculoskeletal: no symptoms reported Skin: no symptoms reported Psychiatric/Neurological: No Symptoms Reported Endocrine: No Symptoms Reported Hematologic/Lymphatic: No Symptoms Reported Past Bdbuyzb-Dwicjm-Vftxzk Hx Patient Social History Smoking Status: Former Smoker Immunizations Up To Date Tetanus Booster (TDap): More than 5yrs PED Vaccines UTD: Yes Seasonal Allergies Seasonal Allergies: Yes Past Medical History Surgeries: Yes (partial gastrectomy, COLONSCOPY/EGD) Abdominal, Appendectomy, Hysterectomy Respiratory: Yes Asthma Currently Using CPAP: No Currently Using BIPAP: No Cardiac: Yes Hypertension, Valvular Heart Disease Neurological: Yes (RESTLESS LEG SYNDROME) Headaches /Migraines 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: Yes 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, 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 Sexually Transmitted Disease: No HIV/AIDS: No Genitourinary: No Gastrointestinal: Yes ("GASTRIC OUTLET OBSTRUCTION" --NO SURGERY OF 05/21/21) Gastroesophageal Reflux, Gastrointestinal Bleed, Obstructive Bowel, Ulcer Musculoskeletal: Yes Scoliosis, Chronic Back Pain Endocrine: Yes (hypoglycemia) HEENT: No Loss of Vision: Denies Hearing Impairment: Denies Cancer: No Psychosocial: No Integumentary: No Blood Disorders: Yes (anemia) Adverse Reaction/Blood Tranf: No Family Medical History Cancer of colon GRANDMOTHER Family history: Diabetes mellitus 19 FATHER Family history: Hypertension 19 MOTHER Stroke 19 MOTHER No Pertinent Family Hx SOCIAL HISTORY: -SMOKES 1 PPD -ETOH--DENIES USE -DRUGS --DENIES USE PAST SURGICAL HISTORY: -GASTRIC BYPASS -APPENDECTOMY -HYSTERECTOMY Physical Exam Vital Signs Vital Signs - First Documented 06/21/21 16:40 Temp 36.6 Pulse 98 Resp 16 B/P (MAP) 183/98 (126) Pulse Ox 98 O2 Delivery Room Air Capillary Refill : Less Than 3 Seconds Height/Weight/BMI Height: 5'0" Weight: 106lbs. 0.0oz. 48.355866gl; 18.00 BMI Method:Stated General Appearance: WD/WN, no apparent distress HEENT: PERRL/EOMI, normal ENT inspection Respiratory: no respiratory distress, no accessory muscle use Cardiovascular: regular rate, rhythm, no murmur Gastrointestinal: normal bowel sounds, soft, tenderness (Epigastric tenderness. Bowel sounds are present. Aside from the epigastric region the rest of the abdomen is nontender to palpation.) Extremities: normal range of motion, non-tender Neurologic/Psychiatric: alert, normal mood/affect, oriented x 3 Skin: normal color, warm/dry Progress/Results/Core Measures Results/Orders Lab Results Laboratory Tests Test 06/21/21 16:50 06/21/21 17:13 Range/Units White Blood Count 7.0 4.3-11.0 10^3/uL Red Blood Count 4.92 3.80-5.11 10^6/uL Hemoglobin 15.4 11.5-16.0 g/dL Hematocrit 47 35-52 % Mean Corpuscular Volume 95 80-99 fL Mean Corpuscular Hemoglobin 31 25-34 pg Mean Corpuscular Hemoglobin Concent 33 32-36 g/dL Red Cell Distribution Width 13.2 10.0-14.5 % Platelet Count 295 130-400 10^3/uL Mean Platelet Volume 9.8 9.0-12.2 fL Immature Granulocyte % (Auto) 0 % Neutrophils (%) (Auto) 53 42-75 % Lymphocytes (%) (Auto) 36 12-44 % Monocytes (%) (Auto) 8 0-12 % Eosinophils (%) (Auto) 2 0-10 % Basophils (%) (Auto) 1 0-10 % Neutrophils # (Auto) 3.7 1.8-7.8 10^3/uL Lymphocytes # (Auto) 2.5 1.0-4.0 10^3/uL Monocytes # (Auto) 0.6 0.0-1.0 10^3/uL Eosinophils # (Auto) 0.1 0.0-0.3 10^3/uL Basophils # (Auto) 0.1 0.0-0.1 10^3/uL Immature Granulocyte # (Auto) 0.0 0.0-0.1 10^3/uL Sodium Level 143 135-145 MMOL/L Potassium Level 2.5 *L 3.6-5.0 MMOL/L Chloride Level 100 98-107 MMOL/L Carbon Dioxide Level 30 21-32 MMOL/L Anion Gap 13 5-14 MMOL/L Blood Urea Nitrogen 3 L 7-18 MG/DL Creatinine 0.66 0.60-1.30 MG/DL Estimat Glomerular Filtration Rate 94 BUN/Creatinine Ratio 5 Glucose Level 92 70-105 MG/DL Calcium Level 9.3 8.5-10.1 MG/DL Corrected Calcium 9.6 8.5-10.1 MG/DL Magnesium Level 1.8 1.6-2.4 MG/DL Total Bilirubin 0.2 0.1-1.0 MG/DL Aspartate Amino Transf (AST/SGOT) 17 5-34 U/L Alanine Aminotransferase (ALT/SGPT) 12 0-55 U/L Alkaline Phosphatase 131 40-136 U/L Total Protein 7.3 6.4-8.2 GM/DL Albumin 3.6 3.2-4.5 GM/DL Lipase 43 8-78 U/L Urine Color YELLOW Urine Clarity CLEAR Urine pH 6.0 5-9 Urine Specific [place] 1.020 1.016-1.022 Urine Protein TRACE H NEGATIVE Urine Glucose (UA) NEGATIVE NEGATIVE Urine Ketones NEGATIVE NEGATIVE Urine Nitrite NEGATIVE NEGATIVE Urine Bilirubin NEGATIVE NEGATIVE Urine Urobilinogen 0.2 < = 1.0 MG/DL Urine Leukocyte Esterase NEGATIVE NEGATIVE Urine RBC (Auto) NEGATIVE NEGATIVE Urine RBC NONE /HPF Urine WBC 0-2 /HPF Urine Squamous Epithelial Cells 10-25 H /HPF Urine Crystals NONE /LPF Urine Bacteria TRACE /HPF Urine Casts PRESENT /LPF Urine Hyaline Casts 2-5 H /LPF Urine Mucus SMALL H /LPF Urine Culture Indicated NO My Orders Orders - RAN MERRITT APRN Cbc With Automated Diff (06/21/21 16:58) Comprehensive Metabolic Panel (06/21/21 16:58) Lipase (06/21/21 16:58) Ua Culture If Indicated (06/21/21 16:58) Ed Iv/Invasive Line Start (06/21/21 16:58) Ct Abdomen/Pelvis W (06/21/21 16:58) Ondansetron Injection (Zofran Injectio (06/21/21 17:00) Lactated Ringers (Lr 1000 Ml Iv Solution (06/21/21 17:00) Fentanyl Inj (Sublimaze Injection) (06/21/21 17:15) Potassium Cl 10meq/50ml Ivpb (Kcl 10 Meq (06/21/21 17:30) Magnesium (06/21/21 17:19) Ns Iv 500 Ml (Sodium Chloride 0.9%) (06/21/21 17:30) Iohexol Injection (Omnipaque 350 Mg/Ml 1 (06/21/21 18:30) Received Contrast (Hold Metformin- Contr (06/21/21 18:30) Ns (Ivpb) (Sodium Chloride 0.9% Ivpb Bag (06/21/21 18:30) Diatrizoate Meglum/Sodium 37% (Gastrogra (06/21/21 18:30) Rx-Hydrocodone/Apap 5-325 Mg (Rx-Vicodin (06/21/21 19:15) Rx-Ondansetron Po (Rx-Zofran Po) (06/21/21 19:11) Medications Given in ED Current Medications Medications Dose Ordered Sig/Flora Route Start Time Stop Time Status Last Admin Dose Admin Diatrizoate Meglum/ Diatrizoate Sod 120 ml ONCE ONCE PO 06/21/21 18:30 06/21/21 18:31 DC 06/21/21 18:43 30 ML Fentanyl Citrate 50 mcg ONCE ONCE IVP 06/21/21 17:15 06/21/21 17:16 DC 06/21/21 17:14 50 MCG Iohexol 100 ml ONCE ONCE IV 06/21/21 18:30 06/21/21 18:31 DC 06/21/21 18:43 66 ML Ondansetron HCl 8 mg ONCE ONCE IVP 06/21/21 17:00 06/21/21 17:01 DC 06/21/21 17:14 8 MG Sodium Chloride 100 ml ONCE ONCE IV 06/21/21 18:30 06/21/21 18:31 DC 06/21/21 18:43 80 ML Vital Signs/I&O 06/21/21 16:40 Temp 36.6 Pulse 98 Resp 16 B/P (MAP) 183/98 (126) Pulse Ox 98 O2 Delivery Room Air Blood Pressure Mean: 126 Departure Communication (Admissions) We will give her some oral contrast and get a CT abdomen. 1912-Pain is quite a bit better, nausea remains absent as it was on her arrival. I will send her home with some Zofran and hydrocodone which she has taken before without adverse effect. She is already on a clear liquid diet so we will have her continue this. Impression Primary Impression: Ileus Disposition: HOME, SELF-CARE Condition: Stable Departure-Patient Inst. Decision time for Depature: 19:04 Referrals: [facility] (PCP) Primary Care Physician SONNY PARRISH (Family) Primary Care Physician Patient Instructions: Postoperative Ileus Add. Discharge Instructions: 1. Return to ER for any concerns. Continue with your clear liquid diet. Return to ER for fevers,, worsening pain, uncontrollable vomiting. All discharge instructions reviewed with patient and/or family. Voiced understanding. Scripts Ondansetron (Ondansetron Odt) 8 Mg Tab.rapdis 8 MG PO Q6H PRN for NAUSEA-1ST LINE, #10 TAB Prov: RAN MERRITT APRN 06/21/21 RAN MERRITT APRN Jun 21, 2021 17:19
[2021-06-21 17:20] LABS: BILIRUBIN,URINE NEGATIVE (NEGATIVE); CLARITY,URINE CLEAR; COLOR,URINE YELLOW; GLUCOSE, URINE (UA) NEGATIVE (NEGATIVE); KETONES,URINE NEGATIVE (NEGATIVE); LEUKOCYTE ESTERASE ,URINE NEGATIVE (NEGATIVE); NITRITE,URINE NEGATIVE (NEGATIVE); PROTEIN,URINE TRACE (NEGATIVE)
[2021-06-21 17:29] LABS: BACTERIA,URINE TRACE /HPF; WBC,URINE 0-2 /HPF
[2021-06-21] MEDS ORDERED: NS IV 500 ML 500 ML IV SCH (17:30)
[2021-06-21] MEDS: POTASSIUM CL 10MEQ/50ML IVPB 50 ML IV SCH ×2 (18:09→19:36)
[2021-06-21] MEDS ORDERED: NS 100 ML (IVPB) BAG IV ONE (18:30)
[2021-06-21] MEDS ORDERED: HOLD METFORMIN - RECEIVED CONTRAST 20 ML VIAL IV SCH (18:30)
[2021-06-21] MEDS ORDERED: DIATRIZOATE MEGLUM/SODIUM 37% 120 ML (GASTROGRAFIN) PO ONE (18:30)
[2021-06-21] MEDS ORDERED: IOHEXOL 350 MG/ML 100 ML (OMNIPAQUE 350) VIAL IV ONE (18:30)
--- NOTE | 2021-06-21 19:01 | Diagnostic Imaging Report ---
PROCEDURE: CT abdomen and pelvis with contrast. TECHNIQUE: Multiple contiguous axial images were obtained through the abdomen and pelvis after administration of intravenous contrast. Auto Exposure Controls were utilized during the CT exam to meet ALARA standards for radiation dose reduction. All CT scans use one or more of the following dose optimizing techniques: automated exposure control, MA and/or KvP adjustment based on patient size and exam type or iterative reconstruction. INDICATION: Abdominal pain and vomiting. COMPARISON: 05/21/2021 FINDINGS: The lung bases are clear. The heart is normal in size. The liver demonstrates no focal lesions. The spleen appears normal. The pancreas demonstrates no focal lesions but the main pancreatic duct appears prominent, measuring about 5 mm in diameter. The adrenal glands appear normal. The kidneys appear normal. The common bile duct appears prominent, measuring 8 mm in diameter. This is a new finding compared to the prior exam. No calcified stone is seen. There are fluid-filled loops of small bowel throughout the abdomen. No definite transition point is seen. There is air and fluid-filled colon. No free air or free fluid is seen. No lymphadenopathy is seen. There are degenerative changes throughout the spine without acute osseous abnormality seen. IMPRESSION: 1. Fluid-filled loops of small bowel with no definite transition point seen. This may be due to ileus. Low-grade partial bowel obstruction is thought less likely. 2. Prominent common bile duct and pancreatic duct. No calcified stone is seen. Recommend correlation with liver function tests and lipase. Ultrasound could be considered to evaluate for stones, but ultimately MRCP or endoscopic ultrasound may be needed. Dictated by: Dictated on workstation # [id number]
[2021-06-21] MEDS ORDERED: ONDA8TAB13 PO (19:06)
[2021-06-21] MEDS ORDERED: RX-ONDANSETRON 4 MG ODT (ZOFRAN) PPK #4 PO STA (19:11)
[2021-06-21 21:15] VITALS: BP 178/86
== END 2021-06-21 21:15 ==
LOC: EDUNIT# 16:33 → ER 16:35
DX: K56.7 Ileus, unspecified (principal); J45.909 Unspecified asthma, uncomplicated; I10 Essential (primary) hypertension; G89.29 Other chronic pain; M54.9 Dorsalgia, unspecified; K21.9 Gastro-esophageal reflux disease without esophagitis; Z87.891 Personal history of nicotine dependence; Z79.891 Long term (current) use of opiate analgesic; Z79.899 Other long term (current) drug therapy; Z79.82 Long term (current) use of aspirin
CPT/HCPCS: 36415; 74177; 80053; 81000; 83690; 83735; 85025

== ENCOUNTER 2022-02-13 14:53 | Observation (INO) | payer OTHER ==
[~2022-02-13] VITALS: Ht 152.4 cm; Wt 44.4 kg
[~2022-02-13 14:53] MED LIST changes: -ASPI-789 PO; +ASPI1TAB23 PO; -FLUC200T5 PO; +FLUC200T9 PO
--- NOTE | 2022-02-13 15:46 | ED Abdominal Pain ---
General Chief Complaint: Abdominal/GI Problems Stated Complaint: N/V,WEAKNESS Source of Information: Patient Exam Limitations: No Limitations History of Present Illness Date Seen by Provider: Feb 13, 2022 Time Seen by Provider: 15:35 Initial Comments Patient is a 56-year-old female who initially evaluated in triage due to lack of beds who presents to the emergency room complaining of abdominal discomfort, nausea vomiting, inability to hold down liquids. She tells me she has a history of previous abdominal surgeries by Dr. Mir at [facility] in [place]. It sounds like she has had the majority of her stomach removed. She has been told that they believe she has an ulcer which is "causing a "blockage". She says she had a bowel movement this morning. She denies any urinary complaints. She is not vomiting blood. She has had a significant weight loss and is down to about 95 pounds. She feels generally weak all over. No chest pain or shortness of breath. No fevers no COVID concerns. She did take some Zofran at about noon. She states she cannot hold down sips of water today. She called Dr. Mir's office and they advised her to come to the emergency room. She has been referred to [facility] by Dr. Mir's office. All other review of systems reviewed and negative except as stated. Timing/Duration: 3-4 Days (since Friday of this week) Severity/Quality: Moderate Location: Generalized Abdomen Associated Symptoms: Nausea/Vomiting Allergies and Home Medications Allergies Coded Allergies: Influenza Virus Vaccines (Verified Allergy, Unknown, 04/15/21) metronidazole (Verified Allergy, Unknown, 04/15/21) Sulfa (Sulfonamide Antibiotics) (Verified Adverse Reaction, Unknown, 04/15/21) Patient Home Medication List Home Medication List Reviewed: Yes Acetaminophen (Tylenol Extra Strength) 500 Mg Tablet, 1,000 MG PO Q8H PRN for PAIN-MILD (1-4), (Reported) Entered as Reported by: ASHLEY NÚÑEZ on 04/16/21 1256 Amlodipine Besylate (Amlodipine Besylate) 5 Mg Tablet, 5 MG PO HS, (Reported) Entered as Reported by: ASHLEY NÚÑEZ on 04/16/21 1238 Amoxicillin/Potassium Clav (Augmentin 875-125 Tablet) 1 Each Tablet, 1 EACH PO BID Prescribed by: JENNYFER PELAYO on 04/24/21 1048 Aspirin/Acetaminophen/Caffeine (Excedrin Extra Strength Caplet) 1 Each Tablet, 3-4 EACH PO DAILY PRN for HEADACHE, (Reported) Entered as Reported by: MODESTO BOOKER on 03/08/20 0921 Atorvastatin Calcium (Atorvastatin Calcium) 20 Mg Tablet, 20 MG PO HS, (Reported) Entered as Reported by: ASHLEY NÚÑEZ on 04/16/21 1240 Budesonide/Formoterol Fumarate (Symbicort 160-4.5 Mcg Inhaler) 10.2 Gm Hfa.aer.ad, 2 PUFF IH BID PRN for SHORTNESS OF BREATH, (Reported) Entered as Reported by: MODESTO BOOKER on 03/08/20 0916 Cholecalciferol (Vitamin D3) (Vitamin D3) 25 Mcg Capsule, 25 MCG PO DAILY, (Reported) Entered as Reported by: ASHLEY NÚÑEZ on 04/16/21 1253 Cyanocobalamin (Vitamin B-12) (B-12) 500 Mcg Tablet, 500 MCG PO DAILY, (Reported) Entered as Reported by: MARIANNA MYERS on 11/29/19 1520 Fluconazole (Diflucan) 100 Mg Tablet, 100 MG PO DAILY Prescribed by: JENNYFER PELAYO on 04/24/21 1048 Gabapentin (Gabapentin) 600 Mg Tablet, 600 MG PO 0800,1200,1700, (Reported) Entered as Reported by: SHIKHA MONTES on 11/30/19 1133 Lorazepam (Ativan) 1 Mg Tablet, 1 MG PO HS PRN for ANXIETY, (Reported) Entered as Reported by: ASHLEY NÚÑEZ on 04/16/21 1243 Losartan Potassium (Losartan Potassium) 100 Mg Tablet, 100 MG PO DAILY, (Reported) Entered as Reported by: ASHLEY NÚÑEZ on 04/16/21 1246 Nitrofurantoin Monohyd/M-Cryst (Macrobid 100 mg Capsule) 100 Mg Capsule, 1 TAB PO BID Prescribed by: LIZ LIRIANO on 05/21/21 2323 Ondansetron (Ondansetron Odt) 8 Mg Tab.rapdis, 8 MG PO Q6H PRN for NAUSEA-1ST LINE Prescribed by: RAN MERRITT on 06/21/21 1906 Oxycodone Hcl (Oxyir Tablet) 5 Mg Tab, 5 MG PO Q8H PRN for PAIN-SEVERE (8-10) Prescribed by: JENNYFER PELAYO on 04/24/21 1048 Pantoprazole Sodium (Protonix) 40 Mg Tablet.dr, 40 MG PO BID, (Reported) Entered as Reported by: SHIKHA MONTES on 11/30/19 1133 Promethazine HCl (Promethazine Tablet) 25 Mg Tablet, 25 MG PO TID PRN for NAUSEA/VOMITING, (Reported) Entered as Reported by: SOLOMON MENDIETA on 11/29/19 0238 Promethazine HCl (Promethazine Suppository) 25 Mg Supp.rect, 25 MG RC Q6 Prescribed by: LIZ LIRIANO on 05/21/21 2323 Propranolol HCl (Propranolol HCl) 40 Mg Tablet, 40 MG PO BID, (Reported) Entered as Reported by: ASHLEY NÚÑEZ on 04/16/21 1240 Review of Systems Review of Systems Constitutional: see HPI, malaise, weakness EENTM: No Symptoms Reported Respiratory: No Symptoms Reported Cardiovascular: No Symptoms Reported Gastrointestinal: Abdominal Pain, Nausea, Vomiting Genitourinary: No Symptoms Reported Musculoskeletal: no symptoms reported Skin: no symptoms reported Psychiatric/Neurological: No Symptoms Reported All Other Systems Reviewed Negative Unless Noted: Yes Past Lqckabx-Nymtym-Xqmzsh Hx Patient Social History Tobacco Use?: Yes Tobacco type used: Cigarettes Smoking Status: Current Everyday Smoker Use of E-Cig and/or Vaping dev: No Substance use?: No Alcohol Use?: No Pt feels they are or have been: No Immunizations Up To Date Tetanus Booster (TDap): More than 5yrs PED Vaccines UTD: Yes First/Initial COVID19 Vaccinat: DECLINED Seasonal Allergies Seasonal Allergies: Yes Past Medical History Surgery/Hospitalization HX: GASTRIC OUTLET OBSTRUCTION, HTN, ?HEART FAILURE. 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 History: Hysterectomy Sexually Transmitted Disease: No HIV/AIDS: No Genitourinary: No Gastrointestinal: Yes ("GASTRIC OUTLET OBSTRUCTION" --NO SURGERY OF 05/21/21) Gastroesophageal Reflux, Gastrointestinal Bleed, Obstructive Bowel, Ulcer Musculoskeletal: Yes Scoliosis, Chronic Back Pain Endocrine: Yes (hypoglycemia) HEENT: No Loss of Vision: Denies Hearing Impairment: Denies Cancer: No Psychosocial: No Integumentary: No Blood Disorders: Yes (anemia) Adverse Reaction/Blood Tranf: No Family Medical History Cancer of colon GRANDMOTHER Family history: Diabetes mellitus 19 FATHER Family history: Hypertension 19 MOTHER Stroke 19 MOTHER No Pertinent Family Hx SOCIAL HISTORY: -SMOKES 1 PPD -ETOH--DENIES USE -DRUGS --DENIES USE PAST SURGICAL HISTORY: -GASTRIC BYPASS -APPENDECTOMY -HYSTERECTOMY Physical Exam Vital Signs Vital Signs - First Documented 02/13/22 15:30 Temp 36.5 Pulse 67 Resp 18 B/P (MAP) 100/63 (75) Pulse Ox 98 O2 Delivery Room Air Capillary Refill : Height/Weight/BMI Height: 5'0" Weight: 106lbs. 0.0oz. [id number]; 18.00 BMI Method:Stated General Appearance: thin HEENT: PERRL/EOMI, other (dry oral mucosa) Neck: normal inspection Respiratory: lungs clear, normal breath sounds, no respiratory distress, no accessory muscle use Cardiovascular: regular rate, rhythm Gastrointestinal: non tender, soft, no organomegaly, no pulsatile mass, abnormal bowel sounds (Hypoactive BS); No distended, No guarding, No rebound Extremities: normal range of motion, normal inspection Neurologic/Psychiatric: alert, normal mood/affect, oriented x 3 Skin: normal color, warm/dry Progress/Results/Core Measures Results/Orders Lab Results Laboratory Tests Test 02/13/22 16:00 Range/Units White Blood Count 11.0 4.3-11.0 10^3/uL Red Blood Count 3.80 3.80-5.11 10^6/uL Hemoglobin 11.8 11.5-16.0 g/dL Hematocrit 36 35-52 % Mean Corpuscular Volume 95 80-99 fL Mean Corpuscular Hemoglobin 31 25-34 pg Mean Corpuscular Hemoglobin Concent 33 32-36 g/dL Red Cell Distribution Width 14.5 10.0-14.5 % Platelet Count 239 130-400 10^3/uL Mean Platelet Volume 9.2 9.0-12.2 fL Immature Granulocyte % (Auto) 0 % Neutrophils (%) (Auto) 81 H 42-75 % Lymphocytes (%) (Auto) 13 12-44 % Monocytes (%) (Auto) 5 0-12 % Eosinophils (%) (Auto) 1 0-10 % Basophils (%) (Auto) 0 0-10 % Neutrophils # (Auto) 8.8 H 1.8-7.8 X 10^3 Lymphocytes # (Auto) 1.4 1.0-4.0 X 10^3 Monocytes # (Auto) 0.6 0.0-1.0 X 10^3 Eosinophils # (Auto) 0.1 0.0-0.3 10^3/uL Basophils # (Auto) 0.0 0.0-0.1 10^3/uL Immature Granulocyte # (Auto) 0.0 0.0-0.1 10^3/uL Sodium Level 141 135-145 MMOL/L Potassium Level 2.2 *L 3.6-5.0 MMOL/L Chloride Level 107 98-107 MMOL/L Carbon Dioxide Level 22 21-32 MMOL/L Anion Gap 12 5-14 MMOL/L Blood Urea Nitrogen 7 7-18 MG/DL Creatinine 0.81 0.60-1.30 MG/DL Estimat Glomerular Filtration Rate 86 BUN/Creatinine Ratio 9 Glucose Level 149 H 70-105 MG/DL Calcium Level 8.5 8.5-10.1 MG/DL Corrected Calcium 9.2 8.5-10.1 MG/DL Total Bilirubin 0.3 0.1-1.0 MG/DL Aspartate Amino Transf (AST/SGOT) 26 5-34 U/L Alanine Aminotransferase (ALT/SGPT) 24 0-55 U/L Alkaline Phosphatase 121 40-136 U/L Total Protein 5.9 L 6.4-8.2 GM/DL Albumin 3.1 L 3.2-4.5 GM/DL Lipase 25 8-78 U/L My Orders Orders - JOSE ELIAS GODDARD MD Ed Iv/Invasive Line Start (02/13/22 15:46) Cbc With Automated Diff (02/13/22 15:46) Comprehensive Metabolic Panel (02/13/22 15:46) Lipase (02/13/22 15:46) Ns Iv 1000 Ml (Sodium Chloride 0.9%) (02/13/22 16:00) Ondansetron Injection (Zofran Injectio (02/13/22 16:00) Dicyclomine Injection (Bentyl Injection) (02/13/22 16:10) Magnesium (02/13/22 17:43) Medications Given in ED Current Medications Medications Dose Ordered Sig/Flora Route Start Time Stop Time Status Last Admin Dose Admin Ondansetron HCl 4 mg ONCE ONCE IVP 02/13/22 16:00 02/13/22 16:01 DC 02/13/22 16:08 4 MG Vital Signs/I&O 02/13/22 15:30 Temp 36.5 Pulse 67 Resp 18 B/P (MAP) 100/63 (75) Pulse Ox 98 O2 Delivery Room Air Progress Progress Note : Time: 17:49 Progress Note Case discussed with Dr. Pelayo regarding the patient's relative dehydration and hypokalemia. She asked that I speak with Dr. FUNEZ secondary to the multiple prior abdominal surgeries Ms. Montez has had. I discussed with him her past medical history he is comfortable with keeping her, hydrating her, correcting electrolytes. She will be admitted to the [facility]. Magnesium level was added at this time. Starting potassium replacement in the ER with IV fluids. Dr. Pelayo will do que'd orders Departure Communication (Admissions) Time/Spoke to Admitting Phy: 17:[address] Pelayo Time/Spoke to Consulting Phy: 17:[address] Funez Impression Primary Impression: Nausea and vomiting Qualified Codes: R11.2 - Nausea with vomiting, unspecified Additional Impressions: Hypokalemia history of gastric outlet obstruction Disposition: ADMITTED INPATIENT Condition: Stable Admissions Decision to Admit Reason: Admit from ER (General) Decision to Admit/Date: Feb 13, 2022 Time/Decision to Admit Time: 17:50 Departure-Patient Inst. Referrals: [facility] (PCP) Primary Care Physician SONNY PARRISH (Family) Primary Care Physician JOSE ELIAS GODDARD MD Feb 13, 2022 15:46
[2022-02-13] MEDS ORDERED: NS IV 1000 ML 1,000 ML IV SCH (16:00)
[2022-02-13] MEDS ORDERED: ONDANSETRON 4 MG/2 ML (SDV) Z0FRAN IVP ONE (16:00)
[2022-02-13 16:10] LABS: BASOPHILS % (AUTO) 0 % (0-10); EOSINOPHILS # (AUTO) 0.1 10^3/uL (0.0-0.3); EOSINOPHILS % (AUTO) 1 % (0-10); HEMATOCRIT 36 % (35-52); HEMOGLOBIN 11.8 g/dL (11.5-16.0); LYMPHOCYTES # (AUTO) 1.4 X 10^3 (1.0-4.0); LYMPHOCYTES % (AUTO) 13 % (12-44); MEAN CORPUSCULAR HEMOGLOBIN 31 pg (25-34); MEAN CORPUSCULAR HGB CONC 33 g/dL (32-36); MEAN CORPUSCULAR VOLUME 95 fL (80-99); MEAN PLATELET VOLUME 9.2 fL (9.0-12.2); MONOCYTES # (AUTO) 0.6 X 10^3 (0.0-1.0); MONOCYTES % (AUTO) 5 % (0-12); NEUTROPHILS # (AUTO) 8.8 X 10^3 (1.8-7.8); NEUTROPHILS % (AUTO) 81 % (42-75); PLATELET COUNT 239 10^3/uL (130-400)
[2022-02-13] MEDS ORDERED: DICYCLOMINE 10 MG/ML (BENTYL) 2 ML AMP IM STA (16:10)
[2022-02-13 16:39] LABS: ALBUMIN 3.1 GM/DL (3.2-4.5); BILIRUBIN,TOTAL 0.3 MG/DL (0.1-1.0); CALCIUM 8.5 MG/DL (8.5-10.1); CREATININE SERUM 0.81 MG/DL (0.60-1.30); TOTAL PROTEIN 5.9 GM/DL (6.4-8.2)
[2022-02-13 16:55] LABS: POTASSIUM 2.2 MMOL/L (3.6-5.0)
[2022-02-13] MEDS ORDERED: POTASSIUM CL 10MEQ/50ML IVPB 50 ML IV ONE ×3 (18:00→21:35)
[2022-02-13] MEDS: NS IV 1000 ML 1,000 ML IV SCH ×2 (18:49→20:21)
[2022-02-13] MEDS ORDERED: ANTACID SUSP 30 ML UDC (MYLANTA) PO PRN (19:45)
[2022-02-13] MEDS ORDERED: LORazepam 1 MG (ATIVAN) TAB PO PRN (19:45)
[2022-02-13] MEDS ORDERED: ACETAMINOPHEN 325 MG TABLET PO PRN (19:45)
[2022-02-13] MEDS ORDERED: MELATONIN 3 MG TABLET PO PRN (19:45)
[2022-02-13] MEDS ORDERED: HYDROmorphone 2 MG/ML VIAL (DILAUDID) IV PRN (19:45)
[2022-02-13] MEDS ORDERED: LACTULOSE SYRUP 10GM/15ML (ENULOSE) 30ML UDC PO PRN (19:45)
[2022-02-13] MEDS ORDERED: diphenhydrAMINE 50 MG/ML INJ (BENADRYL) IVP PRN (19:45)
[2022-02-13] MEDS ORDERED: CALCIUM CARBONATE 500 MG (TUMS) TAB.CHEW PO PRN (19:45)
[2022-02-13] MEDS ORDERED: morphine INJ 4 MG/ML 1 ML (VIAL/SYRINGE) IV PRN (19:45)
[2022-02-13] MEDS ORDERED: polyethylene glycoL POWDER 17 GM (MIRALAX) PACK PO PRN (19:45)
[2022-02-13] MEDS ORDERED: ONDANSETRON 4 MG/2 ML (SDV) Z0FRAN IV PRN (19:45)
[2022-02-13] MEDS ORDERED: ONDANSETRON 4 MG (ZOFRAN) ORAL DISSOLVE TAB PO PRN (19:45)
[2022-02-13] MEDS ORDERED: BISACODYL 10 MG SUPP (DULCOLAX) PR PRN (19:45)
[2022-02-13] MEDS ORDERED: diphenhydrAMINE 25 MG TAB (BENADRYL) PO PRN (19:45)
[2022-02-13] MEDS ORDERED: MILK OF MAGNESIA 400 MG/5 ML 30 ML UDC PO PRN (19:45)
[2022-02-13] MEDS ORDERED: morphine IMMEDIATE RELEASE 15 MG TABLET PO PRN (19:45)
[2022-02-13 20:24] VITALS: BP 149/89
[2022-02-13] MEDS ORDERED: MAGNESIUM 1 GM/100 ML IVPB 100 ML IV ONE ×2 (20:29→21:35)
[2022-02-13] MEDS ORDERED: PROMETHAZINE INJ 25 MG/ML (PHENERGAN) AMP IVP PRN (20:30)
[2022-02-13] MEDS: POTASSIUM CL 10MEQ/50ML IVPB 50 ML IV SCH ×4 (20:31→23:35)
[2022-02-13] MEDS: MAGNESIUM 1 GM/100 ML IVPB 100 ML IV SCH ×2 (20:31→21:36)
[2022-02-13] MEDS ORDERED: ENOXAPARIN 40 MG/0.4 ML (LOVENOX) SYR SC SCH (21:00)
[2022-02-13] MEDS: SENNOSIDES 8.6 MG (SENOKOT) TAB PO SCH (21:28)
[2022-02-13] MEDS: DOCUSATE SODIUM 100 MG (COLACE) CAP PO SCH (21:28)
[2022-02-13] MEDS: DICYCLOMINE 10 MG (BENTYL) CAP PO SCH (21:32)
[2022-02-13] MEDS: PANTOPRAZOLE 40 MG (PROTONIX) VIAL IV SCH (22:14)
[2022-02-13 23:11] VITALS: BP 113/68
[2022-02-14] MEDS: POTASSIUM CL 10MEQ/50ML IVPB 50 ML IV SCH ×4 (00:33→03:53)
[2022-02-14 04:23] VITALS: BP 115/80
--- NOTE | 2022-02-14 04:27 | CONSULTATION REPORT ---
DATE OF SERVICE: 02/13/2022 ATTENDING INFORMATION SYSTEMS SECURITY DEVELOPER: Duncan Acosta APRN. ADMITTING PHYSICIAN: Licha Delgadillo DO HISTORY OF PRESENT ILLNESS: The patient is a 56-year-old male who presented to the Emergency Department with nausea and vomiting as well as upper abdominal discomfort. She does not report any hematemesis nor any coffee-ground emesis. She has a longstanding history of severe peptic ulcer disease and has a history of persistent pyloric ulcers causing a pyloric stricture. In 2013, she underwent multiple balloon dilatations of the pyloric stricture. This did not help with resolution of her symptoms and ultimately she made her way to [facility] and underwent what sounds to be initially a vagotomy and pyloroplasty. She continued to have issues with nausea and vomiting and underwent revisional surgery, which then sounds to be an antrectomy and a Billroth II reconstruction. Her last EGD and colonoscopy documented at [facility] was in 2019 where an EGD was done, which showed anatomy consistent with an antrectomy and Billroth II reconstruction. However, there is no mention of any strictures or any gastric outlet obstructions. There were no marginal ulcerations as well. She underwent a colonoscopy at the same time for change in bowel habits and a colonoscopy was normal. Due to her symptomatology, this may represent a number of different things in her differential. 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 She may have developed a stricture at either the afferent or efferent limb as well as a possibility of recurrent severe gastritis. It also appears that she still has her gallbladder as well. There may also be contributing to her symptoms, Based on previous records, the majority of her surgeries were done by Dr. Tom and Dr. Mir. At this time, we will proceed with conservative management with IV hydration. She does appear to be significantly dehydrated with volume depletion and significant hypokalemia. We will also start her on IV PPI acid reducers on a b.i.d. basis. While admitted, we may also get a Gastrografin upper GI contrast study to study the upper gastrointestinal anatomy. PAST MEDICAL HISTORY: Severe peptic ulcer disease, insulin resistance, hypertension, congestive heart failure, asthma, valvular heart disease, migraine headaches, history of ovarian cyst and endometriosis, scoliosis, degenerative joint disease, history of anemia. PAST SURGICAL HISTORY: Vagotomy and pyloroplasty eventually converted to an antrectomy and Billroth II reconstruction, appendectomy, hysterectomy, multiple EGDs, and pyloric dilatation. ALLERGIES: INFLUENZA VACCINE, METRONIDAZOLE, SULFA. MEDICATIONS: Amlodipine 5 mg daily, acetaminophen p.r.n., Augmentin 875/125 b.i.d., atorvastatin 20 mg daily, budesonide/formoterol 160/4.5 mcg inhaler 2 puffs b.i.d. p.r.n., vitamin B12 500 mcg daily, vitamin D3 25 mcg daily, fluconazole 100 mg daily, gabapentin 600 mg t.i.d., lorazepam 1 mg p.r.n., losartan 100 mg daily, nitrofurantoin 100 mg b.i.d., Zofran 8 mg p.r.n., oxycodone p.r.n., Protonix 40 mg b.i.d., promethazine p.r.n., propranolol 40 mg b.i.d. SOCIAL HISTORY: Positive smoke 40 pack years. Negative alcohol. FAMILY HISTORY: Maternal grandmother, colon cancer. Father with diabetes. Mother with history of cerebrovascular accident. VITAL SIGNS: Temperature 36.5, blood pressure 120/80, pulse 68, respirations 18, pulse ox 100% on room air. REVIEW OF SYSTEMS: This is a thin-appearing female, currently in no acute distress. She is not experiencing any shortness of breath or difficulty of breathing. She does have some upper abdominal discomfort. No chest pain, palpitations, diaphoresis. She did have nausea and vomiting at home. She has not had any episodes since being in the Emergency Department. She does not report any hematemesis nor coffee-ground emesis. No change in bowel habits, no red blood per rectum, no dark tarry stools. No fever, chills, no recent inadvertent weight loss. PHYSICAL EXAMINATION: Will be assessed upon seeing the patient in the a.m. The patient's history was ascertained by the emergency room physician as well as the patient's electronic medical records. LABORATORY DATA: WBC 11.0, hemoglobin 11.8, hematocrit 36, platelets 239, BUN 7, creatinine 0.81. Potassium 2.2, magnesium 1.8. Liver function enzymes normal. ASSESSMENT AND PLAN: A 56-year-old female with nausea, vomiting with extensive and complicated history of peptic ulcer disease requiring multiple surgeries, upper gastrointestinal tract including balloon dilatations as well as a vagotomy and pyloroplasty, and eventually antrectomy and Billroth II reconstruction. The etiology of her nausea and vomiting is extensive, may include Hamlet stasis syndrome, gastrojejunal stricture of either afferent or efferent limb as well as a severe gastritis. There may also be a gallbladder etiology contributing to her symptomatology as well. The vast majority of her surgeries were done by Dr. Tom and Dr. Mir at [facility] and at this point, we will proceed with conservative management with IV hydration, correction of electrolytes, and PPI acid reducers IV. We will also proceed with an upper gastrointestinal contrast study to delineate her upper gastrointestinal anatomy. If any significant strictures or obstructive patterns were identified, we will recommend referring back to her surgeons at [facility]. Job ID: [id number] DocumentID: [id number] Dictated Date: 02/13/2022 20:21:09 Electronics Supervisor Date: 02/14/2022 04:27:01 Dictated By: DELPHINE MCCARTHY MD
[2022-02-14] MEDS: DICYCLOMINE 10 MG (BENTYL) CAP PO SCH ×2 (05:21→12:08)
[2022-02-14] MEDS: NS IV 1000 ML 1,000 ML IV SCH ×3 (05:22→12:08)
[2022-02-14 06:32] LABS: HEMATOCRIT 38 % (35-52); HEMOGLOBIN 12.2 g/dL (11.5-16.0); MEAN CORPUSCULAR HEMOGLOBIN 31 pg (25-34); MEAN CORPUSCULAR HGB CONC 32 g/dL (32-36); MEAN CORPUSCULAR VOLUME 96 fL (80-99); MEAN PLATELET VOLUME 9.7 fL (9.0-12.2); PLATELET COUNT 264 10^3/uL (130-400); WHITE BLOOD COUNT 6.7 10^3/uL (4.3-11.0)
[2022-02-14 07:03] LABS: ALBUMIN 3.2 GM/DL (3.2-4.5); BILIRUBIN,TOTAL 0.2 MG/DL (0.1-1.0); CALCIUM 8.2 MG/DL (8.5-10.1); CREATININE SERUM 0.69 MG/DL (0.60-1.30); POTASSIUM 3.5 MMOL/L (3.6-5.0); TOTAL PROTEIN 6.1 GM/DL (6.4-8.2)
[2022-02-14 08:30] VITALS: BP 123/81
[2022-02-14] MEDS: SENNOSIDES 8.6 MG (SENOKOT) TAB PO SCH (09:14)
[2022-02-14] MEDS: PANTOPRAZOLE 40 MG (PROTONIX) VIAL IV SCH (09:14)
[2022-02-14] MEDS: DOCUSATE SODIUM 100 MG (COLACE) CAP PO SCH (09:14)
[2022-02-14] MEDS ORDERED: ONDA8TAB13 PO (09:44)
[2022-02-14] MEDS ORDERED: FLUC200T9 PO (09:45)
[2022-02-14] MEDS ORDERED: ESTR1TAB37 PO (09:47)
[2022-02-14] MEDS ORDERED: CETI10TA17 PO (09:48)
[2022-02-14] MEDS ORDERED: NORG1TAB14 PO (09:49)
[2022-02-14] MEDS ORDERED: POLY30DR6 OU (09:50)
--- NOTE | 2022-02-14 10:11 | Physical Therapy Progress Note ---
Therapy Progress Note Patient observed ambulating independently without difficulty. RN reports patient will not stay in room and goes off the floor. No skilled PT indicated. ABBY MORRIS PT Feb 14, 2022 10:11
[2022-02-14] MEDS ORDERED: IOHEXOL 350 MG/ML 100 ML (OMNIPAQUE 350) VIAL IV ONE (10:15)
[2022-02-14] MEDS ORDERED: NS 100 ML (IVPB) BAG IV ONE (10:15)
--- NOTE | 2022-02-14 10:31 | Diagnostic Imaging Report ---
PROCEDURE: CT abdomen and pelvis with and without contrast. TECHNIQUE: Precontrast acquisitions were acquired through the abdomen and pelvis. Multiple contiguous axial images were obtained through the abdomen and pelvis after the administration of intravenous contrast. Auto Exposure Controls were utilized during the CT exam to meet ALARA standards for radiation dose reduction. INDICATION: Persistent nausea and vomiting with prior history of antrectomy and Billroth II procedure. Comparison is made with prior CT from 06/21/2021. The lung bases demonstrate some vague groundglass infiltrates in the right middle lobe as well as bilateral lower lobes and lingula. No discrete liver mass is identified. Gallbladder is unremarkable. No biliary ductal dilatation is seen. Pancreas and spleen are unremarkable. There are postoperative changes to the stomach. No adrenal mass is identified. Kidneys are unremarkable. Aorta is nonaneurysmal. Bowel loops appear to be normal caliber. No obstruction is identified. No free fluid or fluid collection is identified. The bladder is unremarkable. IMPRESSION: 1. Postoperative changes from partial antrectomy and Billroth procedure. No acute feature in the abdomen or pelvis is identified. 2. There are patchy groundglass infiltrates in both lung bases, likely on an infectious/inflammatory basis. Dictated by: Dictated on workstation # [id number]
--- NOTE | 2022-02-14 10:53 | Occ Therapy Progress Note ---
Therapy Progress Note OT orders received and chart reviewed. Pt and nurse indicate pt is up independently in her room, able to toilet self and complete ADLs without difficulty. No skilled OT services indicated at this time, d/c from OT. 1, visit KULWINDER YOUNGER OT Feb 14, 2022 10:53
[2022-02-14] MEDS ORDERED: POTASSIUM CL 10MEQ/50ML IVPB 50 ML IV SCH (11:45)
[2022-02-14] MEDS ORDERED: ACETAMINOPHEN 500 MG TAB (TYLENOL) PO PRN (12:00)
[2022-02-14] MEDS ORDERED: FLUCONAZOLE 200 MG PO SCH (12:00)
[2022-02-14] MEDS ORDERED: KCL 20 MEQ TAB (K-DUR) PO SCH (12:00)
[2022-02-14] MEDS ORDERED: POLYETHYLENE GLYCOL OU PRN (12:00)
[2022-02-14] MEDS ORDERED: NON-FORMULARY MEDICATION 1 EA EA (Ondansetron (Ondansetron Odt) 8 MG) PO PRN (12:00)
[2022-02-14] MEDS ORDERED: CETIRIZINE HCL (ZYRTEC) 10 MG TAB PO PRN (12:00)
[2022-02-14] MEDS ORDERED: ARTIFICAL TEARS 0.4 ML UNIT DOSE (REFRESH PLUS) OU PRN (12:15)
[2022-02-14] MEDS ORDERED: LORATADINE (CLARITIN) 10 MG TAB PO PRN (12:15)
[2022-02-14] MEDS ORDERED: ONDANSETRON 4 MG (ZOFRAN) ORAL DISSOLVE TAB PO PRN (12:15)
[2022-02-14] MEDS ORDERED: DICY20TA PO (12:36)
[2022-02-14] MEDS ORDERED: POTA10CA43 PO (12:36)
--- NOTE | 2022-02-14 12:37 | Progress Note ---
Standard Progress Note Progress Notes/Assess & Plan Date Seen by a Provider: Feb 14, 2022 Time Seen by a Provider: 12:00 Progress/Assessment & Plan PE: chest-good bs bilat. heart-reg, no murmurs. abd-soft, mild epigastric tenderness, no peritoneal signs. extr-no le edema, neg homans heent- no scleral icterus. DELPHINE MCCARTHY MD Feb 14, 2022 12:37
[2022-02-14 12:42] VITALS: BP 125/76
[2022-02-14] MEDS ORDERED: GABAPENTIN 600 MG (NEURONTIN) TAB PO SCH (13:00)
[2022-02-14 13:23] VITALS: BP 125/76
--- NOTE | 2022-02-14 14:13 | Short Stay Summary-Hospitalist ---
SUMI URIAS 02/14/22 1413: History of Present Illness HPI/Chief Complaint Haley Montez is a 56y/o F w/ a PMH of gastric outlet obstruction, PUD, and HTN who is being seen due to nausea and vomiting. Pt reports that she had been vomiting for 3-4 weeks 1-2 times daily. She has an extensive history of abdominal surgeries done at [facility] in [place] such as antrectomy and Billroth II reconstruction. 4 days ago the vomiting worsened and she was not able to keep any food or liquids down. Denies any blood being present in the vomint. Then developed worsening abdominal pain which was a 10/10 according to her. Today she reports that her abdominal pain is a 4/10 and she has only vomited one time. Able to eat her meal today without any issues. No changes to her normal bowel habits. Has been leaving her room to go outside and smoke. Believes that she would be able to go home today without any issue. Source: patient Exam Limitations: no limitations Date Seen 02/14/22 Attending [facility] PCP Admitting Physician: Licha Pelayo DO Attending Physician: Licha Pelayo DO Referring Physician Date of Admission Feb 13, 2022 at 18:47 Home Medications & Allergies Home Medications Reviewed patient Home Medication Reconciliation performed by pharmacy medication reconciliations freezer laboratory technician and/or nursing. Patients Allergies have been reviewed. Allergies Allergies Coded Allergies Influenza Virus Vaccines (Verified Allergy, Unknown, 04/15/21) metronidazole (Verified Allergy, Unknown, 04/15/21) Sulfa (Sulfonamide Antibiotics) (Verified Adverse Reaction, Unknown, 04/15/21) Past Medical/Social/Family Hx Patient Social History Tobacco Use?: Yes Tobacco type used: Cigarettes Smoking Status: Current Everyday Smoker Smokeless Tobacco Frequency: Never a User Use of E-Cig and/or Vaping dev: No Substance use?: No Alcohol Use?: No Pt stated abuse/neglect: No Immunizations Up To Date First/Initial COVID19 Vaccinat: DECLINED Tetanus Booster (TDap): Unknown Hepatitis A: No Hepatitis B: No TB Skin Test: None Current Status Advance Directives: No Communicates: Verbally Primary Language: Senegalese Preferred Spoken Language: Senegalese Is interpretation needed?: No Sensory deficits: Vision impairment Implanted or Applied Medical D: None Past Medical History PMHx: GI ulcers Bowel obstruction from adhesions SurgHx: Hysterectomy Partial gastrectomy from ulcer Lysis of adhesions Appendectomy Family Medical History Family Hx: SOCIAL HISTORY: -SMOKES 1 PPD -ETOH--DENIES USE -DRUGS --DENIES USE PAST SURGICAL HISTORY: -GASTRIC BYPASS -APPENDECTOMY -HYSTERECTOMY Review of Systems Constitutional: dizziness; No weakness EENTM: No blurred vision, No double vision Respiratory: No cough, No dyspnea on exertion Cardiovascular: No chest pain, No palpitations Gastrointestinal: abdominal pain, nausea; No vomiting Genitourinary: No frequency, No hematuria Musculoskeletal: back pain; No muscle weakness Psychiatric/Neurological: Headache; Denies Numbness, Denies Paresthesia Physical Exam Physical Exam Vital Signs Vital Signs - First Documented 02/13/22 15:30 Temp 36.5 Pulse 67 Resp 18 B/P (MAP) 100/63 (75) Pulse Ox 98 O2 Delivery Room Air Capillary Refill : Less Than 3 Seconds Height, Weight, BMI Height: 5'0" Weight: 106lbs. 0.0oz. [id number]; 19.11 BMI Method:Stated General Appearance: No Apparent Distress, WD/WN HEENT: PERRL/EOMI; No Photophobia Neck: Non Tender, Supple Respiratory: No Accessory Muscle Use, No Respiratory Distress, Wheezing Cardiovascular: Regular Rate, Rhythm, No Murmur, Normal Peripheral Pulses Gastrointestinal: Soft, Tenderness (diffuse) Extremity: Non Tender, No Calf Tenderness Neurologic/Psychiatric: Alert, Oriented x3, Normal Mood/Affect Skin: Normal Color, Warm/Dry Lymphatic: No Adenopathy Results Results/Procedures Labs Laboratory Tests 02/13/22 16:00 02/14/22 06:26 Patient resulted labs reviewed. Short Stay Diagnosis Discharge Diagnosis-Short Stay Admission Diagnosis Nausea/Vomiting Hypokalemia Dehydration Hx of multiple abdominal surgeries Final Discharge Diagnosis Nausea/Vomiting Hypokalemia Dehydration Hx of multiple abdominal surgeries Conclusion Plan Nausea/Vomiting -improved, did receive zofran and protonix while here -gen surgery was consulted -CT of abdomen done, postoperative changes from partial antrectomy and Billroth procedure. no acute feature in the abdomen or pelvis is identified according to radiology report -continue normal home medications at discharge -Rx sent for her to begin bentyl Hypokalemia -K+ of 2.2 on admission, 3.5 today -she has been given 100mEq of K+ since admission -magnesium level was normal -start daily K+ supplementation Dehydration -given a 1L bolus of NS at admission and then was placed on 75mL/hr -hydration status has improved, instructed pt that she needs to be getting adequate fluid intake at home Hx of multiple abdominal surgeries -followed at [facility] DO 02/15/22 0505: History of Present Illness HPI/Chief Complaint Chief complaint: Abdominal pain with hypokalemia History of present illness: This is a 56-year-old female who has a past medical history of multiple abdominal surgeries who presents with nausea and vomiting and found to have severe hypokalemia of 2.2. 80 mEq was given over 8 hours and currently she is doing well at 3.5. Source: patient Time Seen by a Provider: 11:00 Past Medical/Social/Family Hx Patient Social History Marrital Status: single Employed/Student: unemployed Tobacco Use?: Yes Tobacco type used: Cigarettes Past Medical History Abdominal surgeries Review of Systems Constitutional: see HPI Gastrointestinal: abdominal pain, nausea, vomiting Physical Exam Physical Exam General Appearance: No Apparent Distress, WD/WN, Chronically ill, Thin Respiratory: Lungs Clear, Normal Breath Sounds Cardiovascular: Regular Rate, Rhythm Neurologic/Psychiatric: Alert, Oriented x3 Short Stay Diagnosis Discharge Diagnosis-Short Stay Admission Diagnosis Abdominal pain Hypokalemia Final Discharge Diagnosis Abdominal pain, hypokalemia Conclusion Plan Discharge home Supervisory-Addendum Brief Verification & Attestation Participated in pt care: history, MDM, physical Personally performed: exam, history, MDM, supervision of care Care discussed with: Medical Student Procedures: n/a Results interpretation: Verified all documentation Verification and Attestation of Medical Student E/M Service A medical student performed and documented this service in my presence. I reviewed and verified all information documented by the medical student and made modifications to such information, when appropriate. I personally performed the physical exam and medical decision making. Licha Pelayo, Feb 15, 2022,05:05 SUMI URIAS Feb 14, 2022 14:13 LICHA PELAYO DO Feb 15, 2022 05:05
[2022-02-14] MEDS ORDERED: PANTOPRAZOLE 40 MG (PROTONIX) TAB PO SCH (21:00)
[2022-02-14] MEDS ORDERED: NON-FORMULARY MEDICATION 1 EA EA (Propranolol HCl 40 MG) PO SCH (21:00)
[2022-02-14] MEDS ORDERED: PROPRANOLOL 20 MG (INDERAL) TABLET PO SCH (21:00)
[2022-02-14] MEDS ORDERED: amLODIPine 5 MG (NORVASC) TAB PO SCH (21:00)
[2022-02-15] MEDS ORDERED: CYANOCOBALAMIN 1,000 MCG (VITAMIN B-12) TABLET PO SCH (07:00)
[2022-02-15] MEDS ORDERED: [UNRECOGNIZED DRUG - OTHER] PO SCH (09:00)
[2022-02-15] MEDS ORDERED: CYANOCOBALAMIN 500 MCG PO SCH (09:00)
[2022-02-15] MEDS ORDERED: ESTROGEN ESTER PO SCH (09:00)
[2022-02-15] MEDS ORDERED: TESTOSTERONE PO SCH (09:00)
[2022-02-15] MEDS ORDERED: LOSARTAN 100 MG (COZAAR) TABLET PO SCH (09:00)
[2022-02-18] MEDS ORDERED: fluCOnazole (DIFLUCAN) 100 MG TAB PO SCH (08:00)
== END 2022-02-14 13:20 | disposition home or self-care (01) ==
LOC: EDUNIT# 14:53 → ER 14:56 → UNDOADMOB 18:47 → 4TH 18:47 → UNDODISOB 02-14 13:20
PROVIDERS: ADMIT Internal Medicine; ATTEND Internal Medicine
DX: E87.6 Hypokalemia (principal); E86.0 Dehydration; Z79.899 Other long term (current) drug therapy; F17.210 Nicotine dependence, cigarettes, uncomplicated
CPT/HCPCS: 74178; 80053 ×2; 82947; 83690; 83735; 85025; 85027; 96372; 96375 ×2; 96376 ×2; 99284; G0378; 36415

== ENCOUNTER 2022-02-17 09:52 | Emergency (ER) | payer OTHER ==
[~2022-02-17] VITALS: Ht 152.4 cm; Wt 42.6 kg
[~2022-02-17 09:52] MED LIST changes: +NORG1TAB14 PO; +POLY30DR6 OU; +POTA10CA43 PO
[2022-02-17 11:25] LABS: BASOPHILS % (AUTO) 1 % (0-10); EOSINOPHILS # (AUTO) 0.1 10^3/uL (0.0-0.3); EOSINOPHILS % (AUTO) 3 % (0-10); HEMATOCRIT 38 % (35-52); HEMOGLOBIN 12.3 g/dL (11.5-16.0); LYMPHOCYTES # (AUTO) 1.6 10^3/uL (1.0-4.0); LYMPHOCYTES % (AUTO) 32 % (12-44); MEAN CORPUSCULAR HEMOGLOBIN 31 pg (25-34); MEAN CORPUSCULAR HGB CONC 32 g/dL (32-36); MEAN CORPUSCULAR VOLUME 96 fL (80-99); MEAN PLATELET VOLUME 10.2 fL (9.0-12.2); MONOCYTES # (AUTO) 0.4 10^3/uL (0.0-1.0); MONOCYTES % (AUTO) 7 % (0-12); NEUTROPHILS % (AUTO) 58 % (42-75); PLATELET COUNT 265 10^3/uL (130-400); POTASSIUM 2.9 MMOL/L (3.6-5.0); WHITE BLOOD COUNT 5.2 10^3/uL (4.3-11.0)
[2022-02-17 11:26] LABS: CALCIUM 8.4 MG/DL (8.5-10.1)
[2022-02-17 11:27] LABS: TOTAL PROTEIN 6.1 GM/DL (6.4-8.2)
[2022-02-17] MEDS ORDERED: KETOROLAC 30 MG/ML VIAL IVP STA (11:28)
[2022-02-17 11:29] LABS: BILIRUBIN,TOTAL 0.2 MG/DL (0.1-1.0)
[2022-02-17] MEDS ORDERED: NS IV 1000 ML 1,000 ML IV SCH (11:30)
[2022-02-17] MEDS ORDERED: POTASSIUM CL 10MEQ/50ML IVPB 50 ML IV ONE (11:30)
[2022-02-17 11:31] LABS: CREATININE SERUM 0.66 MG/DL (0.60-1.30)
--- NOTE | 2022-02-17 11:34 | ED GI ---
General Chief Complaint: Abdominal/GI Problems Stated Complaint: ABD PAIN Nursing Triage Note: PT AMB TO RM 2 W C/O LUQ ABD PAIN AND N/V THAT IS UNRESOLVED FROM LAST VISIT. PT REPORTS VOMITING 2X THIS AM, STATES SHE TOOK ZOFRAN AND PHENERGAN AT 0900 THIS AM. PT A&OX4. History of Present Illness Date Seen by Provider: Feb 17, 2022 Time Seen by Provider: 11:00 Initial Comments 56-year-old female presents for generalized abdominal pain that has been present intermittently for several months. She was evaluated in this emergency department a few days ago and found to have a potassium of 2.2 she was admitted for IV hydration and potassium supplementation. She reports 2 episodes of vomiting this morning, she had a bowel movement yesterday evening and passing flatus this am. She has had liquids at 930 this morning. She took promethazine and Zofran which improved her nausea and vomiting. She has only taken Tylenol for pain. She is scheduled for abd surgery at [facility] when she obtains insurance. She sees MICKY Odonnell at [facility] and has appt with Dr. Robert at 02/28 at [facility]. Timing/Duration: Intermittent Severity/Quality: Moderate Location: Generalized Abdomen Radiation: No Radiation Associated Symptoms: No Back Pain, No Chest Pain, No Diaphoresis; Heartburn, Nausea/Vomiting; No Swelling/Mass in Abdomen, No Weakness Allergies and Home Medications Allergies Coded Allergies: Influenza Virus Vaccines (Verified Allergy, Unknown, 04/15/21) metronidazole (Verified Allergy, Unknown, 04/15/21) Sulfa (Sulfonamide Antibiotics) (Verified Adverse Reaction, Unknown, 04/15) Patient Home Medication List Home Medication List Reviewed: Yes Acetaminophen (Tylenol Extra Strength) 500 Mg Tablet, 1,000 MG PO Q8H PRN for PAIN-MILD (1-4), (Reported) Entered as Reported by: ASHLEY NÚÑEZ on 04/16/21 1256 Amlodipine Besylate (Amlodipine Besylate) 5 Mg Tablet, 5 MG PO HS, (Reported) Entered as Reported by: ASHLEY NÚÑEZ on 04/16/21 1238 Cetirizine HCl (Cetirizine HCl) 10 Mg Tablet, 10 MG PO DAILY PRN for ALLERGIES, (Reported) Entered as Reported by: ASHLEY NÚÑEZ on 02/14/22 0948 Cyanocobalamin (Vitamin B-12) (B-12) 500 Mcg Tablet, 500 MCG PO DAILY, (Reported) Entered as Reported by: MARIANNA MYERS on 11/29/19 1520 Dicyclomine HCl (Dicyclomine HCl) 20 Mg Tablet, 20 MG PO Q6H Prescribed by: JENNYFER PELAYO on 02/14/22 1236 Estrogen,Sylvie/Me-Testosterone (Eemt Ds 1.25-2.5 mg Tablet) 1.25 Mg-2.5 Mg Tablet, 1 EACH PO DAILY, (Reported) Entered as Reported by: ASHLEY NÚÑEZ on 02/14/22 0947 Fluconazole (Fluconazole) 200 Mg Tablet, 200 MG PO ONCE WEEKLY, (Reported) Entered as Reported by: ASHLEY NÚÑEZ on 02/14/22 0945 Gabapentin (Gabapentin) 600 Mg Tablet, 600 MG PO TID, (Reported) Entered as Reported by: SHIKHA MONTES on 11/30/19 1133 Losartan Potassium (Losartan Potassium) 100 Mg Tablet, 100 MG PO DAILY, (Reported) Entered as Reported by: ASHLEY NÚÑEZ on 04/16/21 1246 Norgestimate-Ethinyl Estradiol (Sprintec 28 Day Tablet) 0.25 Mg-35 Mcg Tablet, 1 EACH PO DAILY, (Reported) Entered as Reported by: ASHLEY NÚÑEZ on 02/14/22 0949 Ondansetron (Ondansetron Odt) 8 Mg Tab.rapdis, 8 MG PO Q6H PRN for NAUSEA/VOMITING-1ST LINE, (Reported) Entered as Reported by: ASHLEY NÚÑEZ on 02/14/22 0944 Pantoprazole Sodium (Protonix) 40 Mg Tablet.dr, 40 MG PO BID, (Reported) Entered as Reported by: SHIKHA MONTES on 11/30/19 1133 Polyethylene Glycol 400 (Visine Dry Eye Relief) 1 % Drops, 1 DROPS OU DAILY PRN for DRY EYES, (Reported) Entered as Reported by: ASHLEY NÚÑEZ on 02/14/22 0950 Potassium Chloride (Potassium Chloride) 10 Meq Capsule.er, 10 MEQ PO DAILY Prescribed by: JENNYFER PELAYO on 02/14/22 1236 Propranolol HCl (Propranolol HCl) 40 Mg Tablet, 40 MG PO BID, (Reported) Entered as Reported by: ASHLEY NÚÑEZ on 04/16/21 1240 Review of Systems Review of Systems Constitutional: no symptoms reported, see HPI Gastrointestinal: See HPI, Abdominal Pain; Denies Constipated, Denies Diarrhea; Nausea, Vomiting Genitourinary: No Symptoms Reported, See HPI All Other Systems Reviewed Negative Unless Noted: Yes Past Rrxliiz-Bxlmxr-Utxmwk Hx Patient Social History Tobacco Use?: Yes Tobacco type used: Cigarettes Smoking Status: Current Everyday Smoker Use of E-Cig and/or Vaping dev: No Substance use?: No Alcohol Use?: No Immunizations Up To Date Tetanus Booster (TDap): More than 5yrs PED Vaccines UTD: Yes First/Initial COVID19 Vaccinat: NONE Second COVID19 Vaccination Alejandro: NONE Third COVID19 Vaccination Date: NONE COVID19 Vaccine Pharmacology Teacher: NONE Seasonal Allergies Seasonal Allergies: Yes Past Medical History Surgery/Hospitalization HX: GASTRIC OUTLET OBSTRUCTION, HTN, ?HEART FAILURE. 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 Sexually Transmitted Disease: No HIV/AIDS: No Genitourinary: No Gastrointestinal: Yes ("GASTRIC OUTLET OBSTRUCTION" --NO SURGERY OF 05/21/21 ) Gastroesophageal Reflux, Gastrointestinal Bleed, Obstructive Bowel, Ulcer Musculoskeletal: Yes Scoliosis, Chronic Back Pain Endocrine: Yes (hypoglycemia) HEENT: No Loss of Vision: Denies Hearing Impairment: Denies Cancer: No Psychosocial: No Integumentary: No Blood Disorders: Yes (anemia) Adverse Reaction/Blood Tranf: No Family Medical History Reviewed Nursing Family Hx Cancer of colon GRANDMOTHER Family history: Diabetes mellitus 19 FATHER Family history: Hypertension 19 MOTHER Stroke 19 MOTHER No Pertinent Family Hx SOCIAL HISTORY: -SMOKES 1 PPD -ETOH--DENIES USE -DRUGS --DENIES USE PAST SURGICAL HISTORY: -GASTRIC BYPASS -APPENDECTOMY -HYSTERECTOMY Physical Exam Vital Signs Vital Signs - First Documented 02/17/22 10:28 Temp 37.1 Pulse 64 Resp 20 B/P (MAP) 128/69 (88) Pulse Ox 99 O2 Delivery Room Air Capillary Refill : Less Than 3 Seconds Height/Weight/BMI Height: 5'0" Weight: 106lbs. 0.0oz. 48.186137ey; 18.00 BMI Method:Stated General Appearance: WD/WN, no apparent distress Neck: non-tender, full range of motion, supple, normal inspection Respiratory: chest non-tender, lungs clear, normal breath sounds Cardiovascular: normal peripheral pulses, regular rate, rhythm Gastrointestinal: normal bowel sounds, non tender, soft Neurologic/Psychiatric: no motor/sensory deficits, alert, normal mood/affect, oriented x 3 Skin: normal color, warm/dry Progress/Results/Core Measures Results/Orders Lab Results Laboratory Tests Test 02/17/22 10:39 02/17/22 12:34 Range/Units White Blood Count 5.2 4.3-11.0 10^3/uL Red Blood Count 3.95 3.80-5.11 10^6/uL Hemoglobin 12.3 11.5-16.0 g/dL Hematocrit 38 35-52 % Mean Corpuscular Volume 96 80-99 fL Mean Corpuscular Hemoglobin 31 25-34 pg Mean Corpuscular Hemoglobin Concent 32 32-36 g/dL Red Cell Distribution Width 14.6 H 10.0-14.5 % Platelet Count 265 130-400 10^3/uL Mean Platelet Volume 10.2 9.0-12.2 fL Immature Granulocyte % (Auto) 0 % Neutrophils (%) (Auto) 58 42-75 % Lymphocytes (%) (Auto) 32 12-44 % Monocytes (%) (Auto) 7 0-12 % Eosinophils (%) (Auto) 3 0-10 % Basophils (%) (Auto) 1 0-10 % Neutrophils # (Auto) 3.0 1.8-7.8 10^3/uL Lymphocytes # (Auto) 1.6 1.0-4.0 10^3/uL Monocytes # (Auto) 0.4 0.0-1.0 10^3/uL Eosinophils # (Auto) 0.1 0.0-0.3 10^3/uL Basophils # (Auto) 0.0 0.0-0.1 10^3/uL Immature Granulocyte # (Auto) 0.0 0.0-0.1 10^3/uL Sodium Level 141 135-145 MMOL/L Potassium Level 2.9 L 3.6-5.0 MMOL/L Chloride Level 106 98-107 MMOL/L Carbon Dioxide Level 24 21-32 MMOL/L Anion Gap 11 5-14 MMOL/L Blood Urea Nitrogen 3 L 7-18 MG/DL Creatinine 0.66 0.60-1.30 MG/DL Estimat Glomerular Filtration Rate 104 BUN/Creatinine Ratio 5 Glucose Level 147 H 70-105 MG/DL Calcium Level 8.4 L 8.5-10.1 MG/DL Corrected Calcium 9.2 8.5-10.1 MG/DL Total Bilirubin 0.2 0.1-1.0 MG/DL Aspartate Amino Transf (AST/SGOT) 16 5-34 U/L Alanine Aminotransferase (ALT/SGPT) 15 0-55 U/L Alkaline Phosphatase 80 40-136 U/L C-Reactive Protein High Sensitivity 0.31 0.00-0.50 MG/DL Total Protein 6.1 L 6.4-8.2 GM/DL Albumin 3.0 L 3.2-4.5 GM/DL Amylase Level 110 25-125 U/L Lipase 54 8-78 U/L My Orders Orders - BRIANNA RODRIGUEZ INVESTIGATOR VICE Amylase (02/17/22 11:13) Cbc With Automated Diff (02/17/22 11:13) Comprehensive Metabolic Panel (02/17/22 11:13) Hs C Reactive Protein (02/17/22 11:13) Lipase (02/17/22 11:13) Ua Culture If Indicated (02/17/22 11:13) Potassium Cl 10meq/50ml Ivpb (Kcl 10 Meq (02/17/22 11:30) Ketorolac Injection (Toradol Injection) (02/17/22 11:28) Ed Iv/Invasive Line Start (02/17/22 11:28) Ns Iv 1000 Ml (Sodium Chloride 0.9%) (02/17/22 11:30) Acute Abd Series (02/17/22 11:35) Medications Given in ED Current Medications Medications Dose Ordered Sig/Flora Route Start Time Stop Time Status Last Admin Dose Admin Potassium Chloride 50 ml @ 50 mls/hr ONCE ONCE IV 02/17/22 11:30 02/17/22 12:29 DC 02/17/22 11:43 50 MLS/HR Vital Signs/I&O 02/17/22 10:28 Temp 37.1 Pulse 64 Resp 20 B/P (MAP) 128/69 (88) Pulse Ox 99 O2 Delivery Room Air Blood Pressure Mean: 88 Diagnostic Imaging Diagonstic Imaging: Xray Plain Films/CT/US/NM/MRI: abdomen Comments NAME: DIRK PEREZ [facility] REC#: [id number] PT STATUS: REG ER : 1965 PHYSICIAN: BRIANNA RODRIGUEZ ADMIT DATE: 02/17/22/ER Draft Date of Exam:02/17/22 ACUTE ABD SERIES INDICATION: Abdominal pain. COMPARISON: Chest radiograph 05/21/2021. FINDINGS: The lungs are clear without findings of pneumonia or edema. There is no effusion. There is no pneumothorax. Heart size is normal. Pulmonary vascularity is normal. The bowel gas pattern appears nonobstructed. There are surgical sutures present within the left upper quadrant. There are also chain sutures present within the left hemiabdomen as well as within the pelvis. There is moderate stool within the colon. There are no findings of free air. There are no unexpected abdominal calcifications. There is a marked S-shaped scoliosis of the thoracolumbar spine. IMPRESSION: 1. Multiple prior anastomotic sutures within the abdomen and pelvis without findings to suggest bowel dilation or obstruction. There is moderate stool within the colon. 2. No acute cardiopulmonary process. 3. Thoracolumbar scoliosis. Dictated on workstation # [id number] Dict: 02/17/22 1154 Trans: 02/17/22 1220 [id number] Interpreted by: ASHWIN MESA MD Electronically signed by: Reviewed: Reviewed by Me Departure Impression Primary Impression: Abdominal pain Qualified Codes: R10.84 - Generalized abdominal pain Additional Impression: Hypokalemia Disposition: 01 HOME, SELF-CARE Condition: Stable Departure-Patient Inst. Decision time for Depature: 12:50 Referrals: [facility] (PCP) Primary Care Physician SONNY PARRISH (Family) Primary Care Physician Patient Instructions: Severe Abdominal Pain, Adult (DC) Add. Discharge Instructions: Clear liquid diet for the next 2 to 3 hours and then bland diet as tolerated. See you surgeon at [facility]. Take the Potassium Powder daily. Eat Banana or other high potassium foods daily. Follow-up with your primary care provider if symptoms or not improving or worsen. Keep appt with Dr. Robert. Return to the emergency department for new, urgent healthcare needs. All discharge instructions reviewed with patient and/or family. Voiced understanding. Scripts Potassium Chloride (Klor-Con) 20 Meq Packet 20 MEQ PO DAILY, #14 PACKET 0 Refills Prov: BRIANNA RODRIGUEZ 02/17/22 BRIANNA RODRIGUEZ Feb 17, 2022 11:34
--- NOTE | 2022-02-17 12:22 | Diagnostic Imaging Report ---
INDICATION: Abdominal pain. COMPARISON: Chest radiograph 05/21/2021. FINDINGS: The lungs are clear without findings of pneumonia or edema. There is no effusion. There is no pneumothorax. Heart size is normal. Pulmonary vascularity is normal. The bowel gas pattern appears nonobstructed. There are surgical sutures present within the left upper quadrant. There are also chain sutures present within the left hemiabdomen as well as within the pelvis. There is moderate stool within the colon. There are no findings of free air. There are no unexpected abdominal calcifications. There is a marked S-shaped scoliosis of the thoracolumbar spine. IMPRESSION: 1. Multiple prior anastomotic sutures within the abdomen and pelvis without findings to suggest bowel dilation or obstruction. There is moderate stool within the colon. 2. No acute cardiopulmonary process. 3. Thoracolumbar scoliosis. Dictated by: Dictated on workstation # [id number]
[2022-02-17 12:47] LABS: BILIRUBIN,URINE NEGATIVE (NEGATIVE); CLARITY,URINE CLOUDY; COLOR,URINE YELLOW; GLUCOSE, URINE (UA) NEGATIVE (NEGATIVE); KETONES,URINE TRACE (NEGATIVE); LEUKOCYTE ESTERASE ,URINE NEGATIVE (NEGATIVE); NITRITE,URINE POSITIVE (NEGATIVE); PROTEIN,URINE NEGATIVE (NEGATIVE)
[2022-02-17] MEDS ORDERED: POTA20PA34 PO (13:10)
[2022-02-17 13:18] VITALS: BP 131/73
[2022-02-17 13:24] LABS: BACTERIA,URINE LARGE /HPF
== END 2022-02-17 13:18 | disposition home or self-care (01) ==
LOC: EDUNIT# 09:52 → ER 09:53
DX: E87.6 Hypokalemia (principal); R10.84 Generalized abdominal pain; F17.210 Nicotine dependence, cigarettes, uncomplicated; Z90.3 Acquired absence of stomach [part of]; Z28.310 Unvaccinated for COVID-19
CPT/HCPCS: 36415; 74022; 80053; 81000; 82150; 83690; 85025; 86141; 87077; 87088; 87186

== ENCOUNTER → 2022-04-17 | Outpatient (CLI) | payer OTHER ==
[~2022-04-17] MED LIST changes: +POTA20PA34 PO
[2022-04-17 09:09] LABS: ALBUMIN 2.8 GM/DL (3.2-4.5); BILIRUBIN,TOTAL 0.2 MG/DL (0.1-1.0); CALCIUM 8.2 MG/DL (8.5-10.1); CREATININE SERUM 0.71 MG/DL (0.60-1.30); POTASSIUM 2.8 MMOL/L (3.6-5.0); TOTAL PROTEIN 5.9 GM/DL (6.4-8.2)
== END ==
LOC: LAB 08:14
DX: E78.2 Mixed hyperlipidemia (principal)
CPT/HCPCS: 36415; 80053; 80061

== ENCOUNTER → 2022-04-24 | Outpatient (CLI) | payer OTHER | LOC: CARD 08:10 | PROVIDERS: ATTEND Physician Assistant | DX: I11.9 Hypertensive heart disease without heart failure (principal); I08.0 Rheumatic disorders of both mitral and aortic valves; I25.10 Atherosclerotic heart disease of native coronary artery without angina pectoris | CPT/HCPCS: 93306 ==

== ENCOUNTER 2022-04-29 16:05 | Emergency (ER) | payer OTHER ==
[~2022-04-29] VITALS: Ht 152 cm; Wt 48.9 kg
[2022-04-29 16:32] VITALS: BP 175/101
[2022-04-29 18:56] LABS: BASOPHILS # (AUTO) 0.1 10^3/uL (0.0-0.1); BASOPHILS % (AUTO) 1 % (0-10); EOSINOPHILS # (AUTO) 0.2 10^3/uL (0.0-0.3); EOSINOPHILS % (AUTO) 2 % (0-10); HEMATOCRIT 35 % (35-52); HEMOGLOBIN 11.4 g/dL (11.5-16.0); LYMPHOCYTES # (AUTO) 2.5 10^3/uL (1.0-4.0); LYMPHOCYTES % (AUTO) 30 % (12-44); MEAN CORPUSCULAR HEMOGLOBIN 31 pg (25-34); MEAN CORPUSCULAR HGB CONC 32 g/dL (32-36); MEAN CORPUSCULAR VOLUME 95 fL (80-99); MEAN PLATELET VOLUME 9.3 fL (9.0-12.2); MONOCYTES # (AUTO) 0.7 10^3/uL (0.0-1.0); MONOCYTES % (AUTO) 8 % (0-12); NEUTROPHILS # (AUTO) 4.8 10^3/uL (1.8-7.8); NEUTROPHILS % (AUTO) 58 % (42-75); PLATELET COUNT 381 10^3/uL (130-400); WHITE BLOOD COUNT 8.2 10^3/uL (4.3-11.0)
[2022-04-29 19:06] LABS: BILIRUBIN,URINE NEGATIVE (NEGATIVE); CLARITY,URINE CLEAR; COLOR,URINE YELLOW; GLUCOSE, URINE (UA) NEGATIVE (NEGATIVE); KETONES,URINE NEGATIVE (NEGATIVE); LEUKOCYTE ESTERASE ,URINE NEGATIVE (NEGATIVE); NITRITE,URINE NEGATIVE (NEGATIVE); PROTEIN,URINE NEGATIVE (NEGATIVE)
[2022-04-29 19:07] LABS: ALBUMIN 2.7 GM/DL (3.2-4.5); CHLORIDE 105 MMOL/L (98-107); POTASSIUM 4.3 MMOL/L (3.6-5.0); SODIUM 138 MMOL/L (135-145)
[2022-04-29 19:09] LABS: CALCIUM 7.8 MG/DL (8.5-10.1)
[2022-04-29 19:10] LABS: GLUCOSE 105 MG/DL (70-105); TOTAL PROTEIN 5.7 GM/DL (6.4-8.2)
[2022-04-29 19:11] LABS: BACTERIA,URINE NEGATIVE /HPF; WBC,URINE RARE /HPF
[2022-04-29 19:11] LABS: CARBON DIOXIDE 27 MMOL/L (21-32); FIBRIN DEGRADATION PRODUCTS 0.92 UG/ML (0.00-0.49); INR 0.9 (0.8-1.4); PROTHROMBIN TIME PATIENT 12.2 SEC (12.2-14.7)
[2022-04-29 19:12] LABS: SQUAMOUS EPITHELIAL CELL,UR RARE /HPF
[2022-04-29 19:12] LABS: BILIRUBIN,TOTAL 0.2 MG/DL (0.1-1.0)
[2022-04-29 19:13] LABS: ALKALINE PHOSPHATASE 56 U/L (40-136); CREATININE SERUM 0.63 MG/DL (0.60-1.30); ERYTHROCYTE SEDIMENTATION RATE 12 MM/HR (0-30); GFR ESTIMATED 105
[2022-04-29 19:15] LABS: BUN/CREATININE RATIO 8
[2022-04-29 19:16] LABS: ALANINE AMINOTRANSFERASE 29 U/L (0-55); MAGNESIUM 2.2 MG/DL (1.6-2.4)
[2022-04-29 19:17] LABS: CREATINE KINASE 37 U/L (29-168)
[2022-04-29 19:36] LABS: TSH (THYROID ANALYZER) 2.04 UIU/ML (0.35-4.94)
--- NOTE | 2022-04-29 19:39 | Diagnostic Imaging Report ---
INDICATION: Edema Frontal chest obtained at 0652 p.m. and compared with 04/24/2021. Heart and mediastinal silhouette are normal in appearance. The lungs are clear. There is no pneumothorax or pleural fluid. IMPRESSION: No acute process in the chest. Dictated by: Dictated on workstation # [id number]
--- NOTE | 2022-04-29 20:39 | Diagnostic Imaging Report ---
INDICATION: Chest and abdominal pain. CTA chest, abdomen and pelvis Thin axial sections through the chest, abdomen and pelvis are obtained following intravenous contrast bolus. Multiplanar MIP images were reconstructed and reviewed. All CT scans use one or more of the following dose optimizing techniques: automated exposure control, MA and/or KvP adjustment based on patient size and exam type or iterative reconstruction. FINDINGS: There is good opacification of pulmonary arteries without intraluminal filling defect to indicate embolism. Thoracic aorta is of normal caliber without evidence of dissection or aneurysm. No mediastinal hematoma is identified. There is no significant pleural or pericardial fluid. Lungs are clear. Abdominal aorta is of normal caliber and there is good opacification of visceral vessels. No focal hepatic, gallbladder, pancreatic or adrenal gland lesion is identified. Spleen is also stable and unremarkable. Surgical findings are again noted at the level of the stomach and proximal small bowel. There is malrotation of the right kidney which is stable. Kidneys are otherwise unremarkable without evidence of hydronephrosis. No free fluid is seen within the abdomen or pelvis. Unopacified bladder is unremarkable in appearance. Note is made of diffuse lumbar spondylosis with rightward convexity curvature of the lumbar spine. IMPRESSION: No CTA evidence of great vessel abnormality. No acute abnormality is seen within the chest, abdomen or pelvis. Dictated by: Dictated on workstation # [id number]
[2022-04-29] MEDS ORDERED: IOHEXOL 350 MG/ML 100 ML (OMNIPAQUE 350) VIAL IV ONE (20:45)
[2022-04-29] MEDS ORDERED: HOLD METFORMIN - RECEIVED CONTRAST 20 ML VIAL IV SCH (20:45)
--- NOTE | 2022-04-29 21:01 | ED General ---
General Chief Complaint: Cardiac/General Problems Stated Complaint: WEAK IN LEGS- ABD PAIN Nursing Triage Note: TO TRIAGE WITH COMPLAINTS OF FLUID RETENTION AND WT GAIN OF 10POUNDS. Source of Information: Patient, Old Records History of Present Illness Date Seen by Provider: Apr 29, 2022 Time Seen by Provider: 18:45 Initial Comments PT ARRIVES VIA POV FROM HOME C/O LEG SWELLING AND ABDOMINAL SWELLING FOR OVER A WEEK NO CHEST PAIN NO SHORTNESS OF BREATH NO PAIN IN CALVES NO PALPITATIONS NO DIZZINESS OR SYNCOPE NO SWEATS NO FEVER DOES HAVE A COUGH, BUT IS A CHRONIC COUGH HAS CHRONIC NAUSEA AND VOMITING AND DIARRHEA AND ABDOMINAL PAIN --STATES SHE HAS VOMITED X 3 TODAY, AND 5 TIMES LAST NIGHT--THIS IS ALL NORMAL / CHRONIC ISSUE, PER PT. ABDOMINAL PAIN IS ALSO CHRONIC HAS HAD DIARRHEA SINCE Friday04/27/22, STATES SHE HAS NOT HAD ANY STOOLS SINCE NOON --THIS IS ALSO NORMAL/ CHRONIC ISSUES PT STATES "I HAVE A BLOCKAGE IN MY STOMACH" " GASTRIC OUTLET OBSTRUCTION" AND "I'M SUPPOSED TO HAVE SURGERY" BUT THIS HAS NOT BEEN ARRANGED, AND PT HAS NEVER FOLLOWED UP WITH [facility] FOR THIS PROBLEM PT STATES SHE HAS HAD 4 PRIOR ABDOMINAL SURGERIES, AND HAS BEEN REFERRED TO [facility] HAS BEEN SEEN BY DR. SUAREZ, [facility] SURGEON, IN THE PAST FOR THIS THIS IS A CHRONIC / ONGOING COMPLAINT FOR YEARS NOW, AND PT ALWAYS GIVES THIS SAME STORY OF "SUPPOSED TO HAVE SURGERY" SHE FREQUENTLY ONLY TAKES IN LIQUIDS, BUT IS DOES NOT DRINK ANY KIND OF PROTEIN DRINK DOES NOT TAKE ANY VITAMINS NONE OF HER SYMPTOMS ARE DIFFERENT TONIGHT IN ANY WAY HAS NOT SOUGHT CARE UNTIL TONIGHT ON REVIEW OF OLD CHARTS, PT HAS HAD PRIOR APPENDECTOMY, HYSTERECTOMY, AND GASTRIC BYPASS SURGERY PT DOES NOT VOLUNTEER THE INFORMATION ABOUT GASTRIC BYPASS, BUT LATER CONFIRMS PT HAS HAD A MULTITUDE OF ER VISITS, WELL ENDOSCOPIES FOR THIS SAME COMPLAINT OF N/V/D/ABDOMINAL PAIN PT IS FIXATED ON HER LOW POTASSIUM LEVELS. PCP; [facility] [place] [facility]PER[facility]: DR. HAMLIN--SAW HIM LAST FRIDAY FOR ROUTINE APPOINTMENT. ROUTINE LAB SHOWED LOW POTASSIUM SO WAS TOLD TO INCREASE HER POTASSIUM DOSE LAST FRIDAY, WHICH SHE HAS CONTINUED TO DO Allergies and Home Medications Allergies Coded Allergies: Influenza Virus Vaccines (Verified Allergy, Unknown, 04/15/21) metronidazole (Verified Allergy, Unknown, 04/15/21) Sulfa (Sulfonamide Antibiotics) (Verified Adverse Reaction, Unknown, 04/15/21) Patient Home Medication List Home Medication List Reviewed: Yes Acetaminophen (Tylenol Extra Strength) 500 Mg Tablet, 1,000 MG PO Q8H PRN for PAIN-MILD (1-4), (Reported) Entered as Reported by: ASHLEY NÚÑEZ on 04/16/21 1256 Amlodipine Besylate (Amlodipine Besylate) 5 Mg Tablet, 5 MG PO HS, (Reported) Entered as Reported by: ASHLEY NÚÑEZ on 04/16/21 1238 Cetirizine HCl (Cetirizine HCl) 10 Mg Tablet, 10 MG PO DAILY PRN for ALLERGIES, (Reported) Entered as Reported by: ASHLEY NÚÑEZ on 02/14/22 0948 Cyanocobalamin (Vitamin B-12) (B-12) 500 Mcg Tablet, 500 MCG PO DAILY, (Reported) Entered as Reported by: MARIANNA MYERS on 11/29/19 1520 Dicyclomine HCl (Dicyclomine HCl) 20 Mg Tablet, 20 MG PO Q6H Prescribed by: JENNYFER PELAYO on 02/14/22 1236 Estrogen,Sylvie/Me-Testosterone (Eemt Ds 1.25-2.5 mg Tablet) 1.25 Mg-2.5 Mg Tablet, 1 EACH PO DAILY, (Reported) Entered as Reported by: ASHLEY NÚÑEZ on 02/14/22 0947 Fluconazole (Fluconazole) 200 Mg Tablet, 200 MG PO ONCE WEEKLY, (Reported) Entered as Reported by: ASHLEY NÚÑEZ on 02/14/22 0945 Gabapentin (Gabapentin) 600 Mg Tablet, 600 MG PO TID, (Reported) Entered as Reported by: SHIKHA MONTES on 11/30/19 1133 Losartan Potassium (Losartan Potassium) 100 Mg Tablet, 100 MG PO DAILY, (Reported) Entered as Reported by: ASHLEY NÚÑEZ on 04/16/21 1246 Norgestimate-Ethinyl Estradiol (Sprintec 28 Day Tablet) 0.25 Mg-35 Mcg Tablet, 1 EACH PO DAILY, (Reported) Entered as Reported by: ASHLEY NÚÑEZ on 02/14/22 0949 Ondansetron (Ondansetron Odt) 8 Mg Tab.rapdis, 8 MG PO Q6H PRN for NAUSEA/VOMITING-1ST LINE, (Reported) Entered as Reported by: ASHLEY NÚÑEZ on 02/14/22 0944 Pantoprazole Sodium (Protonix) 40 Mg Tablet.dr, 40 MG PO BID, (Reported) Entered as Reported by: SHIKHA MONTES on 11/30/19 1133 Polyethylene Glycol 400 (Visine Dry Eye Relief) 1 % Drops, 1 DROPS OU DAILY PRN for DRY EYES, (Reported) Entered as Reported by: ASHLEY NÚÑEZ on 02/14/22 0950 Potassium Chloride (Potassium Chloride) 10 Meq Capsule.er, 10 MEQ PO DAILY Prescribed by: JENNYFER PELAYO on 02/14/22 1236 Potassium Chloride (Klor-Con) 20 Meq Packet, 20 MEQ PO DAILY Prescribed by: BRIANNA RODRIGUEZ on 02/17/22 1310 Propranolol HCl (Propranolol HCl) 40 Mg Tablet, 40 MG PO BID, (Reported) Entered as Reported by: ASHLEY NÚÑEZ on 04/16/21 1240 Review of Systems Review of Systems Constitutional: no symptoms reported EENTM: no symptoms reported Respiratory: no symptoms reported Cardiovascular: no symptoms reported Gastrointestinal: see HPI Genitourinary: no symptoms reported; No decreased output Musculoskeletal: see HPI (LEG SWELLING); No muscle pain, No muscle cramps Skin: no symptoms reported Psychiatric/Neurological: No Symptoms Reported Hematologic/Lymphatic: No Symptoms Reported Immunological/Allergic: no symptoms reported Past Aklclxr-Myjgng-Zssklw Hx Patient Social History Tobacco Use?: Yes Tobacco type used: Cigarettes Smoking Status: Current Everyday Smoker Substance use?: No Alcohol Use?: No Immunizations Up To Date Tetanus Booster (TDap): More than 5yrs PED Vaccines UTD: Yes First/Initial COVID19 Vaccinat: NONE Second COVID19 Vaccination Alejandro: NONE Third COVID19 Vaccination Date: NONE Seasonal Allergies Seasonal Allergies: Yes Past Medical History Surgery/Hospitalization HX: GASTRIC OUTLET OBSTRUCTION, HTN, ?HEART FAILURE. INSULIN RESISTANT WITH HYPOGLYCEMIA HYSTERECTOMY STOMACH SURGERY Surgeries: Yes (partial gastrectomy, COLONSCOPY/EGD) Abdominal, Appendectomy, Hysterectomy Respiratory: Yes Asthma Currently Using CPAP: No Currently Using BIPAP: No Cardiac: Yes Hypertension, Valvular Heart Disease Neurological: Yes (RESTLESS LEG SYNDROME) Headaches /Migraines 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: Yes 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, Ovarian Cyst MAMMOGRAPHY TECH History: Hysterectomy Sexually Transmitted Disease: No HIV/AIDS: No Genitourinary: No Gastrointestinal: Yes ("GASTRIC OUTLET OBSTRUCTION"-NO SURGERY;CHRONIC N/V/D/ABD PAIN) Gastroesophageal Reflux, Gastrointestinal Bleed, Obstructive Bowel, Ulcer Musculoskeletal: Yes Degenerate Disk Disease, Osteoporosis, Scoliosis, Chronic Back Pain Endocrine: Yes (HYPOGLYCEMIA; ) HEENT: No Loss of Vision: Denies Hearing Impairment: Denies Cancer: No Psychosocial: No Integumentary: No Blood Disorders: Yes (anemia) Adverse Reaction/Blood Tranf: No Family Medical History Cancer of colon GRANDMOTHER Family history: Diabetes mellitus 19 FATHER Family history: Hypertension 19 MOTHER Stroke 19 MOTHER No Pertinent Family Hx SOCIAL HISTORY: -SMOKES 1 PPD -ETOH--DENIES USE -DRUGS --DENIES USE PAST SURGICAL HISTORY: -GASTRIC BYPASS -APPENDECTOMY -HYSTERECTOMY -GASTRIC ANTRUM RESECTION AND BILROTH ll RECONSTRUCTION -VAGOTOMY AND PYLOROPLASTY -MULTIPLE EGD'S AND PYLORIC DILATIONS FOR PYLORIC STENOSIS; SCLEROTHERAPY FOR GI BLEED -COLONOSCOPY -CARDIAC CATH 03/08/[address] HAMLIN: CONCLUSION: 1. Mild coronary artery disease nonobstructive disease, dominant circumflex artery 2. Normal left ventricular systolic and diastolic function, EF 50 percent 3. Normal aortic root, +1-2 AR DISCUSSION AND RECOMMENDATION: Medical therapy is recommended no intervention is needed Physical Exam Vital Signs Vital Signs - First Documented 04/29/22 16:32 Temp 36.4 Pulse 77 Resp 16 B/P (MAP) 175/101 (125) Pulse Ox 100 O2 Delivery Room Air Capillary Refill : Less Than 3 Seconds Height, Weight, BMI Height: 5'0" Weight: 106lbs. 0.0oz. [id number]; 21.00 BMI Method:Stated General Appearance: No Apparent Distress, WD/WN, Thin, Other (FULL, HEAVY MAKEUP, WELL GROOMED. THIN. TALKATIVE, AND SMILING. 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 Norm as Tested Skin: Normal Color, Warm/Dry Progress/Results/Core Measures Suspected Sepsis SIRS Temperature: Pulse: 77 Respiratory Rate: 16 Laboratory Tests 04/29/22 18:45: White Blood Count 8.2 Blood Pressure 175 /101 Mean: 125 Laboratory Tests 04/29/22 18:45: Creatinine 0.63, INR Comment 0.9, Platelet Count 381, Total Bilirubin 0.2 Results/Orders Lab Results Laboratory Tests Test 04/29/22 18:45 04/29/22 19:00 Range/Units White Blood Count 8.2 4.3-11.0 10^3/uL Red Blood Count 3.71 L 3.80-5.11 10^6/uL Hemoglobin 11.4 L 11.5-16.0 g/dL Hematocrit 35 35-52 % Mean Corpuscular Volume 95 80-99 fL Mean Corpuscular Hemoglobin 31 25-34 pg Mean Corpuscular Hemoglobin Concent 32 32-36 g/dL Red Cell Distribution Width 15.9 H 10.0-14.5 % Platelet Count 381 130-400 10^3/uL Mean Platelet Volume 9.3 9.0-12.2 fL Immature Granulocyte % (Auto) 0 % Neutrophils (%) (Auto) 58 42-75 % Lymphocytes (%) (Auto) 30 12-44 % Monocytes (%) (Auto) 8 0-12 % Eosinophils (%) (Auto) 2 0-10 % Basophils (%) (Auto) 1 0-10 % Neutrophils # (Auto) 4.8 1.8-7.8 10^3/uL Lymphocytes # (Auto) 2.5 1.0-4.0 10^3/uL Monocytes # (Auto) 0.7 0.0-1.0 10^3/uL Eosinophils # (Auto) 0.2 0.0-0.3 10^3/uL Basophils # (Auto) 0.1 0.0-0.1 10^3/uL Immature Granulocyte # (Auto) 0.0 0.0-0.1 10^3/uL Erythrocyte Sedimentation Rate 12 0-30 MM/HR Prothrombin Time 12.2 12.2-14.7 SEC INR Comment 0.9 0.8-1.4 Activated Partial Thromboplast Time 29 24-35 SEC D-Dimer 0.92 H 0.00-0.49 UG/ML Sodium Level 138 135-145 MMOL/L Potassium Level 4.3 3.6-5.0 MMOL/L Chloride Level 105 98-107 MMOL/L Carbon Dioxide Level 27 21-32 MMOL/L Anion Gap 6 5-14 MMOL/L Blood Urea Nitrogen 5 L 7-18 MG/DL Creatinine 0.63 0.60-1.30 MG/DL Estimat Glomerular Filtration Rate 105 BUN/Creatinine Ratio 8 Glucose Level 105 70-105 MG/DL Calcium Level 7.8 L 8.5-10.1 MG/DL Corrected Calcium 8.8 8.5-10.1 MG/DL Magnesium Level 2.2 1.6-2.4 MG/DL Total Bilirubin 0.2 0.1-1.0 MG/DL Aspartate Amino Transf (AST/SGOT) 27 5-34 U/L Alanine Aminotransferase (ALT/SGPT) 29 0-55 U/L Alkaline Phosphatase 56 40-136 U/L Total Creatine Kinase 37 29-168 U/L Creatine Kinase MB 1.0 <6.6 NG/ML Myoglobin 25.0 10.0-92.0 NG/ML Troponin I < 0.028 <0.028 NG/ML C-Reactive Protein High Sensitivity 0.07 0.00-0.50 MG/DL B-Type Natriuretic Peptide 199.3 H <100.0 PG/ML Total Protein 5.7 L 6.4-8.2 GM/DL Albumin 2.7 L 3.2-4.5 GM/DL TSH [facility] Testing 2.04 0.35-4.94 UIU/ML Urine Color YELLOW Urine Clarity CLEAR Urine pH 8.0 5-9 Urine Specific [place] 1.025 H 1.016-1.022 Urine Protein NEGATIVE NEGATIVE Urine Glucose (UA) NEGATIVE NEGATIVE Urine Ketones NEGATIVE NEGATIVE Urine Nitrite NEGATIVE NEGATIVE Urine Bilirubin NEGATIVE NEGATIVE Urine Urobilinogen 0.2 < = 1.0 MG/DL Urine Leukocyte Esterase NEGATIVE NEGATIVE Urine RBC (Auto) NEGATIVE NEGATIVE Urine RBC NONE /HPF Urine WBC RARE /HPF Urine Squamous Epithelial Cells RARE /HPF Urine Renal Epithelial Cells NONE /HPF Urine Crystals NONE /LPF Urine Bacteria NEGATIVE /HPF Urine Casts NONE /LPF Urine Mucus NEGATIVE /LPF Urine Culture Indicated NO Influenza Type A (RT-PCR) Not Detected Not Detecte Influenza Type B (RT-PCR) Not Detected Not Detecte SARS-CoV-2 RNA (RT-PCR) Not Detected Not Detecte My Orders Orders - HERILIZ Hess DO Ed Iv/Invasive Line Start (04/29/22 18:46) Ekg Tracing (04/29/22 18:46) O2 (04/29/22 18:46) Monitor-Rhythm Ecg Trace Only (04/29/22 18:46) Bnp [place] (04/29/22 18:46) Cbc With Automated Diff (04/29/22 18:46) Comprehensive Metabolic Panel (04/29/22 18:46) Creatine Kinase (04/29/22 18:46) Creatine Kinase Mb (04/29/22 18:46) Hs C Reactive Protein (04/29/22 18:46) Fibrin Degradation Products (04/29/22 18:46) Magnesium (04/29/22 18:46) Protime With Inr (04/29/22 18:46) Partial Thromboplastin Time (04/29/22 18:46) Thyroid Analyzer (04/29/22 18:46) Ua Culture If Indicated (04/29/22 18:46) Erythrocyte Sedimentation Rate (04/29/22 18:46) Myoglobin Serum (04/29/22 18:46) Troponin I [place] (04/29/22 18:46) Chest 1 View, Ap/Pa Only (04/29/22 18:46) Covid 19 Inhouse Test (04/29/22 18:54) Influenza A And B By Pcr (04/29/22 18:54) Isolation Central Supply Req (04/29/22 18:54) Ct Yuliya Chest/Noang Abd-Pelv W (04/29/22 19:23) Iohexol Injection (Omnipaque 350 Mg/Ml 1 (04/29/22 20:45) Received Contrast (Hold Metformin- Contr (04/29/22 20:45) Vital Signs/I&O 04/29/22 16:32 Temp 36.4 Pulse 77 Resp 16 B/P (MAP) 175/101 (125) Pulse Ox 100 O2 Delivery Room Air Capillary Refill : Less Than 3 Seconds Blood Pressure Mean: 125 Progress Note : Progress Note NO COMPLAINTS FOR ENTIRE ER STAY ON REVIEW OF TEST RESULTS, PT STATES SHE IS SUPPOSED TO BE TAKING CALCIUM--HAS BEEN TOLD MULTIPLE TIMES THAT SHE NEEDS TO TAKE IT, BUT SIMPLY DOESN'T TAKE IT. EXPLAINED IMPORTANCE OF CALCIUM TO HER ORGANS, TISSUES AND BONES. ALSO DISCUSSED THE IMPORTANCE OF PROTEIN IN HER DIET, IMPORTANCE OF CALCIUM TO HER ORGANS AND TISSUES AND THAT IS A CONTRIBUTING CAUSE FOR HER LEG EDEMA. Diagnostic Imaging Comments PER RADIOLOGIST REPORTS AT 2046 CXR-- Heart and mediastinal silhouette are normal in appearance. The lungs are clear. There is no pneumothorax or pleural fluid. IMPRESSION: No acute process in the chest. CT CHEST ANGIOGRAM / ABDOMEN-PELVIS-- FINDINGS: There is good opacification of pulmonary arteries without intraluminal filling defect to indicate embolism. Thoracic aorta is of normal caliber without evidence of dissection or aneurysm. No mediastinal hematoma is identified. There is no significant pleural or pericardial fluid. Lungs are clear. Abdominal aorta is of normal caliber and there is good opacification of visceral vessels. No focal hepatic, gallbladder, pancreatic or adrenal gland lesion is identified. Spleen is also stable and unremarkable. Surgical findings are again noted at the level of the stomach and proximal small bowel. There is malrotation of the right kidney which is stable. Kidneys are otherwise unremarkable without evidence of hydronephrosis. No free fluid is seen within the abdomen or pelvis. Unopacified bladder is unremarkable in appearance. Note is made of diffuse lumbar spondylosis with rightward convexity curvature of the lumbar spine. IMPRESSION: No CTA evidence of great vessel abnormality. No acute abnormality is seen within the chest, abdomen or pelvis. Reviewed: Reviewed by Me Departure Impression Primary Impression: Leg edema Additional Impressions: Hypoproteinemia Hypoalbuminemia due to protein-calorie malnutrition Edema due to hypoalbuminemia Hypocalcemia Disposition: HOME, SELF-CARE Condition: Stable Departure-Patient Inst. Decision time for Depature: 20:55 Referrals: [facility] (PCP) Primary Care Physician Patient Instructions: Albumin Blood Test, Calcium Rich Diet, Calcium and Vitamin D, Dependent Edema (DC), High Calorie, High Protein Diet, Hypocalcemia (DC) Add. Discharge Instructions: TAKE A MULTIVITAMIN WITH IRON DAILY TAKE 1500 MG CALCUIM + VITAMIN D DAILY--SUCH CITRACAL / CALCIUM CITRATE YOU NEED TO CONSUME AT LEAST 100 GRAMS OF PROTEIN DAILY, YOU MAY SUPPLEMENT YOUR DIET WITH LIQUIDS SUCH ENSURE MAX PROTEIN. FOLLOW UP WITH [facility] FOR FURTHER CARE All discharge instructions reviewed with patient and/or family. Voiced understanding. LIZ LIRIANO DO Apr 29, 2022 21:00
== END 2022-04-29 21:17 | disposition home or self-care (01) ==
LOC: EDUNIT# 16:05 → ER 16:06
DX: E77.8 Other disorders of glycoprotein metabolism (principal); E88.09 Other disorders of plasma-protein metabolism, not elsewhere classified; E46 Unspecified protein-calorie malnutrition; E83.51 Hypocalcemia; F17.210 Nicotine dependence, cigarettes, uncomplicated; Z20.822 Contact with and (suspected) exposure to COVID-19; Z28.310 Unvaccinated for COVID-19
CPT/HCPCS: 36415; 71045; 71275; 74177; 80053; 81000; 82550; 82553; 83735; 83874; 83880; 84443; 84484; 85025; 85379; 85610; 85652; 85730; 86141; 87636

== ENCOUNTER 2022-05-07 12:00 | Emergency (ER) | payer OTHER ==
[~2022-05-07 12:00] MED LIST changes: +ALBU8.5H6 IH; -RT-ALBUINH IH
[2022-05-07] MEDS ORDERED: morphine INJ 10 MG/ML 1ML (SYR OR VIAL) IVP STA ×2 (12:06→13:56)
[2022-05-07] MEDS ORDERED: L.E.T. SOLUTION 3 ML SYR TOP ONE (12:15)
[2022-05-07] MEDS ORDERED: TETANUS,DIPTH,PERTUSS P/F (BOOSTRIX) 0.5 ML VIAL IM ONE (12:15)
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
[2022-05-07] MEDS ORDERED: HOLD METFORMIN - RECEIVED CONTRAST 20 ML VIAL IV SCH (12:30)
[2022-05-07] MEDS ORDERED: CATHETER FLUSH 10 ML SYR IV PRN (12:30)
[2022-05-07] MEDS ORDERED: NS 100 ML (IVPB) BAG IV ONE (12:30)
[2022-05-07] MEDS ORDERED: IOHEXOL 350 MG/ML 100 ML (OMNIPAQUE 350) VIAL IV ONE (12:30)
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
[2022-05-07 13:09] LABS: BILIRUBIN,URINE NEGATIVE (NEGATIVE); CLARITY,URINE CLEAR; COLOR,URINE YELLOW; GLUCOSE, URINE (UA) TRACE (NEGATIVE); KETONES,URINE NEGATIVE (NEGATIVE); LEUKOCYTE ESTERASE ,URINE TRACE (NEGATIVE); NITRITE,URINE NEGATIVE (NEGATIVE); PH,URINE 6.5 (5-9); PROTEIN,URINE NEGATIVE (NEGATIVE)
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
[2022-05-07 13:15] LABS: RBC,URINE 0-2 /HPF
[2022-05-07 13:16] LABS: BACTERIA,URINE TRACE /HPF; WBC,URINE 0-2 /HPF
[2022-05-07 13:37] LABS: BASOPHILS # (AUTO) 0.1 10^3/uL (0.0-0.1); BASOPHILS % (AUTO) 1 % (0-10); EOSINOPHILS # (AUTO) 0.1 10^3/uL (0.0-0.3); EOSINOPHILS % (AUTO) 1 % (0-10); HEMATOCRIT 43 % (35-52); HEMOGLOBIN 13.8 g/dL (11.5-16.0); LYMPHOCYTES # (AUTO) 1.3 10^3/uL (1.0-4.0); LYMPHOCYTES % (AUTO) 14 % (12-44); MEAN CORPUSCULAR HEMOGLOBIN 31 pg (25-34); MEAN CORPUSCULAR HGB CONC 33 g/dL (32-36); MEAN CORPUSCULAR VOLUME 96 fL (80-99); MEAN PLATELET VOLUME 9.5 fL (9.0-12.2); MONOCYTES # (AUTO) 0.7 10^3/uL (0.0-1.0); MONOCYTES % (AUTO) 7 % (0-12); NEUTROPHILS # (AUTO) 7.3 10^3/uL (1.8-7.8); NEUTROPHILS % (AUTO) 76 % (42-75); PLATELET COUNT 265 10^3/uL (130-400); WHITE BLOOD COUNT 9.7 10^3/uL (4.3-11.0)
[2022-05-07] MEDS ORDERED: LIDOCAINE 1% INJ 20 ML VIAL INJ ONE (13:45)
[2022-05-07 13:56] LABS: POTASSIUM 4.8 MMOL/L (3.6-5.0)
[2022-05-07 13:57] LABS: CALCIUM 7.8 MG/DL (8.5-10.1)
[2022-05-07 13:59] LABS: BAND NEUTROPHILS 0 %; BASOPHILS % (MANUAL) 2 %; EOSINOPHILS % (MANUAL) 2 %; LYMPHOCYTES % (MANUAL) 14 %; MONOCYTES % (MANUAL) 5 %; NEUTROPHILS % (MANUAL) 77 %
[2022-05-07 13:59] LABS: TOTAL PROTEIN 6.6 GM/DL (6.4-8.2)
[2022-05-07 14:00] LABS: RBC MORPH NORMAL
[2022-05-07 14:00] LABS: BILIRUBIN,TOTAL 0.3 MG/DL (0.1-1.0)
[2022-05-07 14:02] LABS: CREATININE SERUM 0.57 MG/DL (0.60-1.30)
[2022-05-07] MEDS ORDERED: DEXTROSE 10% IV SOLUTION 1,000 ML IV SCH (14:30)
[2022-05-07 15:00] LABS: AMPHETAMINE SCREEN, URINE NEGATIVE (NEGATIVE); BARBITURATE SCREEN URINE NEGATIVE (NEGATIVE); BENZODIAZEPINES SCREEN URINE NEGATIVE (NEGATIVE); CANNABINOID SCREEN, URINE NEGATIVE (NEGATIVE); COCAINE SCREEN URINE NEGATIVE (NEGATIVE); METHADONE STAT NEGATIVE (NEGATIVE); OPIATE SCREEN URINE NEGATIVE (NEGATIVE); OXYCODONE STAT NEGATIVE (NEGATIVE); PROPOXYPHENE STAT NEGATIVE (NEGATIVE); TRICYCLIC ANTIDEPRESSANTS SCRE NEGATIVE (NEGATIVE)
[2022-05-07] MEDS ORDERED: morphine INJ 10 MG/ML 1ML (SYR OR VIAL) ONE (16:08)
[2022-05-07 16:16] VITALS: BP 167/89
== END 2022-05-07 16:19 | disposition short-term general hospital (02) ==
LOC: EDUNIT# 12:05 → ER 12:06
DX: S32.011A Stable burst fracture of first lumbar vertebra, initial encounter for closed fracture (principal); S22.20XA Unspecified fracture of sternum, initial encounter for closed fracture; S27.321A Contusion of lung, unilateral, initial encounter; S01.81XA Laceration without foreign body of other part of head, initial encounter; E16.2 Hypoglycemia, unspecified; F17.210 Nicotine dependence, cigarettes, uncomplicated; Z28.310 Unvaccinated for COVID-19; V89.2XXA Person injured in unspecified motor-vehicle accident, traffic, initial encounter; Y92.410 Unspecified street and highway as the place of occurrence of the external cause
CPT/HCPCS: 12053; 36415; 70450; 71260; 72125; 72128; 72131; 73562; 73610; 74177; 80053; 80306; 81000; 82947; 83690; 85007; 85027

== ENCOUNTER 2022-09-18 13:11 | Emergency (ER) | payer MEDICAID ==
[~2022-09-18] VITALS: Ht 152 cm; Wt 46.0 kg
[~2022-09-18 13:11] MED LIST changes: -POTA10CA43 PO; +POTA10CA44 PO
--- NOTE | 2022-09-18 13:51 | ED General ---
General Chief Complaint: General Problems/Pain Stated Complaint: RETAINING FLUID Nursing Triage Note: Patient ambulatory to ER w c/o fluid retention, sob, and abdominal pain. started 2 days ago. Patient states she is on a liquid diet because she has a blockage that needs fixed and she's been waiting two years for that surgery. patient states she has continout nausea, vomiting, and diarrhea with the blockage. Patient states she's having lower back pain as well. Back surgery 2021. History of Present Illness Date Seen by Provider: Sep 18, 2022 Time Seen by Provider: 13:51 Initial Comments Patient is a 56-year-old female who presents to the emergency room with a chief complaint of concern of retaining fluid, swelling in her legs. She has chronic abdominal pain due to chronic GI issues, follows with Dr. LOMELI core machine tender in [place]. She states its been about a year since she has seen him. She follows a liquid diet. She takes daily potassium supplements. When this happens that she states she normally has to be admitted to the hospital for IV potassium replacement. She does feel a little generally weak. Mildly short of breath. She does not require oxygen at home. Pain level is at its baseline in her abdomen. She did have a normal bowel movement this morning nonblack nonbloody. No dysuria, urgency or frequency. States that she is compliant with her daily potassium replacement, 20 mEq. No recent illnesses such as fevers, chills, cough or congestion. No COVID concer ns. She did call her primary care practitioner's office and was instructed to come to the emergency department. She does not do daily weights even though she has been instructed to do so. Timing/Duration: 1-2 Days Severity: Moderate Associated Systoms: Malaise, Nausea/Vomiting (chronic), Weakness Allergies and Home Medications Allergies Coded Allergies: nitrofurantoin (Verified Allergy, Mild, 09/18/22) flu like symptoms Influenza Virus Vaccines (Verified Allergy, Unknown, 04/15/21) metronidazole (Verified Allergy, Unknown, 04/15/21) Sulfa (Sulfonamide Antibiotics) (Verified Adverse Reaction, Unknown, 04/15/21) Patient Home Medication List Home Medication List Reviewed: Yes Acetaminophen (Tylenol Extra Strength) 500 Mg Tablet, 1,000 MG PO Q8H PRN for PAIN-MILD (1-4), (Reported) Entered as Reported by: ASHLEY NÚÑEZ on 04/16/21 1256 Amlodipine Besylate (Amlodipine Besylate) 5 Mg Tablet, 5 MG PO HS, (Reported) Entered as Reported by: ASHLEY NÑÚEZ on 04/16/21 1238 Cetirizine HCl (Cetirizine HCl) 10 Mg Tablet, 10 MG PO DAILY PRN for ALLERGIES, (Reported) Entered as Reported by: ASHLEY NÚÑEZ on 02/14/22 0948 Cyanocobalamin (Vitamin B-12) (B-12) 500 Mcg Tablet, 500 MCG PO DAILY, (Reported) Entered as Reported by: MARIANNA MYERS on 11/29/19 1520 Dicyclomine HCl (Dicyclomine HCl) 20 Mg Tablet, 20 MG PO Q6H Prescribed by: JENNYFER PELAYO on 02/14/22 1236 Estrogen,Sylvie/Me-Testosterone (Eemt Ds 1.25-2.5 mg Tablet) 1.25 Mg-2.5 Mg Tablet, 1 EACH PO DAILY, (Reported) Entered as Reported by: ASHLEY NÚÑEZ on 02/14/22 0947 Fluconazole (Fluconazole) 200 Mg Tablet, 200 MG PO ONCE WEEKLY, (Reported) Entered as Reported by: ASHLEY NÚÑEZ on 02/14/22 0945 Furosemide (Lasix) 20 Mg Tablet, 20 MG PO DAILY Prescribed by: JOSE ELIAS GODDARD on 09/18/22 1548 Gabapentin (Gabapentin) 600 Mg Tablet, 600 MG PO TID, (Reported) Entered as Reported by: SHIKHA MONTES on 11/30/19 1133 Losartan Potassium (Losartan Potassium) 100 Mg Tablet, 100 MG PO DAILY, (Reported) Entered as Reported by: ASHLEY NÚÑEZ on 04/16/21 1246 Norgestimate-Ethinyl Estradiol (Sprintec 28 Day Tablet) 0.25 Mg-35 Mcg Tablet, 1 EACH PO DAILY, (Reported) Entered as Reported by: ASHLEY NÚÑEZ on 02/14/22 0949 Ondansetron (Ondansetron Odt) 8 Mg Tab.rapdis, 8 MG PO Q6H PRN for NAUSEA/VOMITING-1ST LINE, (Reported) Entered as Reported by: ASHLEY NÚÑEZ on 02/14/22 0944 Pantoprazole Sodium (Protonix) 40 Mg Tablet.dr, 40 MG PO BID, (Reported) Entered as Reported by: SHIKHA MONTES on 11/30/19 1133 Polyethylene Glycol 400 (Visine Dry Eye Relief) 1 % Drops, 1 DROPS OU DAILY PRN for DRY EYES, (Reported) Entered as Reported by: ASHLEY NÚÑEZ on 02/14/22 0950 Potassium Chloride (Potassium Chloride) 10 Meq Capsule.er, 10 MEQ PO DAILY Prescribed by: JENNYFER PELAYO on 02/14/22 1236 Potassium Chloride (Klor-Con) 20 Meq Packet, 20 MEQ PO DAILY Prescribed by: BRIANNA RODRIGUEZ on 02/17/22 1310 Propranolol HCl (Propranolol HCl) 40 Mg Tablet, 40 MG PO BID, (Reported) Entered as Reported by: ASHLEY NÚÑEZ on 04/16/21 1240 Review of Systems Review of Systems Constitutional: see HPI EENTM: no symptoms reported Respiratory: short of breath (mild) Cardiovascular: no symptoms reported Gastrointestinal: abdominal pain, nausea, vomiting, other (chronic abdominal discomfort) Genitourinary: no symptoms reported : No Musculoskeletal: back pain (low (chronic)) Skin: no symptoms reported All Other Systems Reviewed Negative Unless Noted: Yes Past Mbrghfw-Gdgpio-Osqotl Hx Patient Social History Tobacco Use?: Yes Tobacco type used: Cigarettes Smoking Status: Current Everyday Smoker Substance use?: No Alcohol Use?: No Immunizations Up To Date Tetanus Booster (TDap): More than 5yrs PED Vaccines UTD: Yes First/Initial COVID19 Vaccinat: NONE Second COVID19 Vaccination Alejandro: NONE Third COVID19 Vaccination Date: NONE Seasonal Allergies Seasonal Allergies: Yes Past Medical History Surgery/Hospitalization HX: GASTRIC OUTLET OBSTRUCTION, HTN, ?HEART FAILURE. 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 History: Hysterectomy Sexually Transmitted Disease: No HIV/AIDS: No Genitourinary: No Gastrointestinal: Yes ("GASTRIC OUTLET OBSTRUCTION"-NO SURGERY;CHRONIC N/V/D/ABD PAIN) Gastroesophageal Reflux, Gastrointestinal Bleed, Obstructive Bowel, Ulcer Musculoskeletal: Yes Degenerate Disk Disease, Osteoporosis, Scoliosis, Chronic Back Pain Endocrine: Yes (HYPOGLYCEMIA; ) HEENT: No Loss of Vision: Denies Hearing Impairment: Denies Cancer: No Psychosocial: No Integumentary: No Blood Disorders: Yes (anemia) Adverse Reaction/Blood Tranf: No Family Medical History Cancer of colon GRANDMOTHER Family history: Diabetes mellitus 19 FATHER Family history: Hypertension 19 MOTHER Stroke 19 MOTHER No Pertinent Family Hx SOCIAL HISTORY: -SMOKES 1 PPD -ETOH--DENIES USE -DRUGS --DENIES USE PAST SURGICAL HISTORY: -GASTRIC BYPASS -APPENDECTOMY -HYSTERECTOMY -GASTRIC ANTRUM RESECTION AND BILROTH ll RECONSTRUCTION -VAGOTOMY AND PYLOROPLASTY -MULTIPLE EGD'S AND PYLORIC DILATIONS FOR PYLORIC STENOSIS; SCLEROTHERAPY FOR GI BLEED -COLONOSCOPY -CARDIAC CATH 03/08/[address] HAMLIN: CONCLUSION: 1. Mild coronary artery disease nonobstructive disease, dominant circumflex artery 2. Normal left ventricular systolic and diastolic function, EF 50 percent 3. Normal aortic root, +1-2 AR DISCUSSION AND RECOMMENDATION: Medical therapy is recommended no intervention is needed Physical Exam Vital Signs Vital Signs - First Documented 09/18/22 13:21 Temp 37.2 Pulse 84 Resp 16 B/P (MAP) 135/69 (91) Pulse Ox 98 O2 Delivery Room Air Capillary Refill : Less Than 3 Seconds Height, Weight, BMI Height: 5'0" Weight: 106lbs. 0.0oz. [id number]; 19.00 BMI Method:Stated General Appearance: No Apparent Distress, Thin Eyes: Bilateral Eye Normal Inspection, Bilateral Eye PERRL, Bilateral Eye EOMI HEENT: PERRL/EOMI Neck: Normal Inspection Respiratory: Lungs Clear, Normal Breath Sounds, No Accessory Muscle Use, No Respiratory Distress Cardiovascular: Regular Rate, Rhythm, Normal Peripheral Pulses Gastrointestinal: Normal Bowel Sounds, Other (distended, soft; no focal tenderness) Extremity: Normal Range of Motion, Pedal Edema (2+ above the sock line distal calf) Neurologic/Psychiatric: Alert, Oriented x3, No Motor/Sensory Deficits, Normal 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, 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 as Tested Skin: Normal Color, Warm/Dry Procedures/Interventions Suture Size: 5-0 Progress/Results/Core Measures Suspected Sepsis SIRS Temperature: Pulse: 84 Respiratory Rate: 16 Laboratory Tests 09/18/22 13:57: White Blood Count 7.7 Blood Pressure 135 /69 Mean: 91 Laboratory Tests 09/18/22 13:57: Creatinine 0.60, Platelet Count 392, Total Bilirubin 0.1 Results/Orders Lab Results Laboratory Tests Test 09/18/22 13:57 Range/Units White Blood Count 7.7 4.3-11.0 10^3/uL Red Blood Count 3.79 L 3.80-5.11 10^6/uL Hemoglobin 10.0 L 11.5-16.0 g/dL Hematocrit 32 L 35-52 % Mean Corpuscular Volume 83 80-99 fL Mean Corpuscular Hemoglobin 26 25-34 pg Mean Corpuscular Hemoglobin Concent 32 32-36 g/dL Red Cell Distribution Width 21.5 H 10.0-14.5 % Platelet Count 392 130-400 10^3/uL Mean Platelet Volume 9.7 9.0-12.2 fL Immature Granulocyte % (Auto) 0 % Neutrophils (%) (Auto) 68 42-75 % Lymphocytes (%) (Auto) 23 12-44 % Monocytes (%) (Auto) 6 0-12 % Eosinophils (%) (Auto) 2 0-10 % Basophils (%) (Auto) 0 0-10 % Neutrophils # (Auto) 5.3 1.8-7.8 10^3/uL Lymphocytes # (Auto) 1.8 1.0-4.0 10^3/uL Monocytes # (Auto) 0.5 0.0-1.0 10^3/uL Eosinophils # (Auto) 0.1 0.0-0.3 10^3/uL Basophils # (Auto) 0.0 0.0-0.1 10^3/uL Immature Granulocyte # (Auto) 0.0 0.0-0.1 10^3/uL Sodium Level 141 135-145 MMOL/L Potassium Level 3.3 L 3.6-5.0 MMOL/L Chloride Level 107 98-107 MMOL/L Carbon Dioxide Level 24 21-32 MMOL/L Anion Gap 10 5-14 MMOL/L Blood Urea Nitrogen 6 L 7-18 MG/DL Creatinine 0.60 0.60-1.30 MG/DL Estimat Glomerular Filtration Rate 107 BUN/Creatinine Ratio 10 Glucose Level 160 H 70-105 MG/DL Calcium Level 7.5 L 8.5-10.1 MG/DL Corrected Calcium 8.9 8.5-10.1 MG/DL Magnesium Level 1.7 1.6-2.4 MG/DL Total Bilirubin 0.1 0.1-1.0 MG/DL Aspartate Amino Transf (AST/SGOT) 32 5-34 U/L Alanine Aminotransferase (ALT/SGPT) 17 0-55 U/L Alkaline Phosphatase 91 40-136 U/L Total Protein 5.4 L 6.4-8.2 GM/DL Albumin 2.3 L 3.2-4.5 GM/DL My Orders Orders - JOSE ELIAS GODDARD MD Ed Iv/Invasive Line Start (09/18/22 13:55) Cbc With Automated Diff (09/18/22 13:55) Comprehensive Metabolic Panel (09/18/22 13:55) Magnesium (09/18/22 13:55) Furosemide Injection (Lasix Injection) (09/18/22 15:00) Potassium Chloride (Tablet) (K Dur Table (09/18/22 15:00) Hydrocodone/Apap 5/325 Tablet (Lortab 5 (09/18/22 15:00) Medications Given in ED Vital Signs/I&O 09/18/22 09/18/22 13:21 15:53 Temp 37.2 Pulse 84 75 Resp 16 18 B/P (MAP) 135/69 (91) 132/84 Pulse Ox 98 99 O2 Delivery Room Air Room Air Capillary Refill : Less Than 3 Seconds Blood Pressure Mean: 91 Progress Note : Time: 15:30 Progress Note Patient seen and evaluated by me. Eval today includes physical exam, CBC, CH12. Patients physical exam is pertinent for WDWN female NAD with pitting edema to legs 2+ bilaterally, some edema in her hands. Lungs are clear, respirations even and unlabored. Heart is regular. No increased work of breathing, no JVD. No signs of pulmonary edema. DDX based on H&P CHF, anasarca due to renal failure/protein mihir malnutrition. Labs reviewed, CBC is normal. Chem normal except potassium which is slightly low at 3.3. She is on potassium replacement therapy. She does have chronic bowel issues, sees a GI docotor in [place] (has been a year). I discussed with her using some Lasix to mobilize the fluids (her renal function is normal). I gave 20mg of lasix in the ED with good results. Will add a second dose of potassium to her regimen for a total of 3 days with 20 of lasix for a total of 3 days. I reiterated to her to watch her daily weights. She will need to follow up with her PCP. COnsideration for CXR however, H&P do not support the need. Her VS remained stable. No indications for hospitalization. Patient is comfortable with the plan of care. Stable for discharge. Departure Impression Primary Impression: Edema Qualified Codes: R60.9 - Edema, unspecified Disposition: HOME, SELF-CARE Condition: Stable Departure-Patient Inst. Decision time for Depature: 15:46 Referrals: HAKEEM DILLON APRN (PCP) Primary Care Physician [facility] (Family) Primary Care Physician Patient Instructions: Swelling Add. Discharge Instructions: Watch your salt intake closely over the next couple of days. We have given you Lasix which will help remove some of the fluid causing the swelling. This can also decrease your potassium. Take 2 of your potassium tablets today, tomorrow and Tod. You will also take a Lasix tablet tomorrow and Friday. If you develop any new, concerning or emergent complaints please come back to the emergency room for reevaluation. Scripts Furosemide (Lasix) 20 Mg Tablet 20 MG PO DAILY, #2 TAB Prov: JOSE ELIAS GODDARD MD 09/18/22 Copy Copies To 1: JONATHAN TODD KATHRYN M MD Sep 18, 2022 13:51
[2022-09-18 14:06] LABS: BASOPHILS % (AUTO) 0 % (0-10); EOSINOPHILS # (AUTO) 0.1 10^3/uL (0.0-0.3); EOSINOPHILS % (AUTO) 2 % (0-10); HEMATOCRIT 32 % (35-52); LYMPHOCYTES # (AUTO) 1.8 10^3/uL (1.0-4.0); LYMPHOCYTES % (AUTO) 23 % (12-44); MEAN CORPUSCULAR HEMOGLOBIN 26 pg (25-34); MEAN CORPUSCULAR HGB CONC 32 g/dL (32-36); MEAN CORPUSCULAR VOLUME 83 fL (80-99); MEAN PLATELET VOLUME 9.7 fL (9.0-12.2); MONOCYTES # (AUTO) 0.5 10^3/uL (0.0-1.0); MONOCYTES % (AUTO) 6 % (0-12); NEUTROPHILS # (AUTO) 5.3 10^3/uL (1.8-7.8); NEUTROPHILS % (AUTO) 68 % (42-75); PLATELET COUNT 392 10^3/uL (130-400); WHITE BLOOD COUNT 7.7 10^3/uL (4.3-11.0)
[2022-09-18 14:12] LABS: ALBUMIN 2.3 GM/DL (3.2-4.5)
[2022-09-18 14:13] LABS: POTASSIUM 3.3 MMOL/L (3.6-5.0)
[2022-09-18 14:14] LABS: CALCIUM 7.5 MG/DL (8.5-10.1)
[2022-09-18 14:15] LABS: TOTAL PROTEIN 5.4 GM/DL (6.4-8.2)
[2022-09-18 14:17] LABS: BILIRUBIN,TOTAL 0.1 MG/DL (0.1-1.0)
[2022-09-18 14:18] LABS: CREATININE SERUM 0.6 MG/DL (0.60-1.30)
[2022-09-18 14:21] LABS: MAGNESIUM 1.7 MG/DL (1.6-2.4)
[2022-09-18] MEDS ORDERED: FUROSEMIDE 40 MG/4 ML INJ (LASIX) IVP ONE (15:00)
[2022-09-18] MEDS ORDERED: KCL 20 MEQ TAB (K-DUR) PO ONE (15:00)
[2022-09-18] MEDS ORDERED: HYDROcodone/APAP 5 MG/325 MG (LORTAB) TAB PO ONE (15:00)
[2022-09-18] MEDS ORDERED: FURO-125 PO (15:48)
[2022-09-18 15:53] VITALS: BP 132/84
== END 2022-09-18 15:53 | disposition home or self-care (01) ==
LOC: EDUNIT# 13:11 → ER 13:13
DX: R60.0 Localized edema (principal); I10 Essential (primary) hypertension; F17.210 Nicotine dependence, cigarettes, uncomplicated; Z28.310 Unvaccinated for COVID-19
CPT/HCPCS: 36415; 80053; 83735; 85025

== ENCOUNTER → 2022-10-03 | Outpatient (CLI) | payer MEDICAID ==
[~2022-10-03] MED LIST changes: +FURO-125 PO
== END ==
LOC: CARD 09:42
PROVIDERS: ATTEND Nurse Practitioner Family
DX: I51.7 Cardiomegaly (principal); I35.1 Nonrheumatic aortic (valve) insufficiency; R60.9 Edema, unspecified
CPT/HCPCS: 93306

== ENCOUNTER 2023-06-09 12:22 | Observation (INO) | payer MEDICAID ==
[~2023-06-09] VITALS: Ht 152.4 cm; Wt 52.7 kg
[~2023-06-09 12:22] MED LIST changes: -LOSA100T57 PO; +LOSA100T58 PO; +POTA-185 PO; -POTA10CA44 PO; +POTA10CA84 PO; -POTA10TA PO
--- NOTE | 2023-06-09 12:50 | ED General ---
General Chief Complaint: General Problems/Pain Stated Complaint: LOW POTASSIUM AND IRON Nursing Triage Note: PT AMB TO TRIAGE WITH C/O LOW POTASSIUM AND LOW IRON AFTER BEING SENT BY PCP. PT STATES SHE IS ON A LIQUID DIET DUE TO STOMACH SURGERY. PT STATES SHE HAS BEEN MORE TIRED X1 WEEK Source of Information: Patient Exam Limitations: No Limitations History of Present Illness Date Seen by Provider: Jun 09, 2023 Time Seen by Provider: 12:36 Initial Comments 57-year-old female presents the ER for abnormal lab results. She had routine labs drawn on 06/06/2023. Her primary care provider called her today to told her to come to the ER due to low potassium and low iron. She is uncertain of the results. She consumes a liquid diet all the time due to stomach issues. She reports that she has a blockage that does not allow food through. She reports she had a EGD recently which showed an ulcer. She is supposed to return in 4 weeks to have her esophagus stretched. She reports for the last week she has had intermittent dull chest pain that last a few seconds at a time. Reports that it occurs several times a day. She reports she has been more tired recently. States that when she walked from the car into the ER she became tired, and her legs felt tired. She denies fevers, shortness of air, abdominal pain, diarrhea, constipation, dysuria. Reports chronic nausea, reports she vomits approximately 1 time a day. Denies any change to this. Patient reports she has had issues with low potassium in the past due to her liquid diet. She reports she has had to be admitted for low potassium. She takes potassium daily, states her primary care provider just increase the dose to 40 mill equivalents daily. Other past medical history includes hypertension. Allergies and Home Medications Allergies Coded Allergies: nitrofurantoin (Verified Allergy, Mild, 09/18/22) flu like symptoms Influenza Virus Vaccines (Verified Allergy, Unknown, 04/15/21) metronidazole (Verified Allergy, Unknown, 04/15/21) Sulfa (Sulfonamide Antibiotics) (Verified Adverse Reaction, Unknown, 04/15/21) Patient Home Medication List Home Medication List Reviewed: Yes Acetaminophen (Tylenol Extra Strength) 500 Mg Tablet, 1,000 MG PO Q8H PRN for PAIN-MILD (1-4), (Reported) Entered as Reported by: ASHLEY NÚÑEZ on 04/16/21 1256 Amlodipine Besylate (Amlodipine Besylate) 5 Mg Tablet, 5 MG PO HS, (Reported) Entered as Reported by: ASHLEY NÚÑEZ on 04/16/21 1238 Cetirizine HCl (Cetirizine HCl) 10 Mg Tablet, 10 MG PO DAILY PRN for ALLERGIES, (Reported) Entered as Reported by: ASHLEY NÚÑEZ on 02/14/22 0948 Cyanocobalamin (Vitamin B-12) (B-12) 500 Mcg Tablet, 500 MCG PO DAILY, (Reported) Entered as Reported by: MARIANNA MYERS on 11/29/19 1520 Dicyclomine HCl (Dicyclomine HCl) 20 Mg Tablet, 20 MG PO Q6H Prescribed by: JENNYFER PELAYO on 02/14/22 1236 Estrogen,Sylvie/Me-Testosterone (Eemt Ds 1.25-2.5 mg Tablet) 1.25 Mg-2.5 Mg Tablet, 1 EACH PO DAILY, (Reported) Entered as Reported by: ASHLEY NÚÑEZ on 02/14/22 0947 Fluconazole (Fluconazole) 200 Mg Tablet, 200 MG PO ONCE WEEKLY, (Reported) Entered as Reported by: ASHLEY NÚÑEZ on 02/14/22 0945 Furosemide (Lasix) 20 Mg Tablet, 20 MG PO DAILY Prescribed by: JOSE ELIAS GODDARD on 09/18/22 1548 Gabapentin (Gabapentin) 600 Mg Tablet, 600 MG PO TID, (Reported) Entered as Reported by: SHIKHA MONTES on 11/30/19 1133 Losartan Potassium (Losartan Potassium) 100 Mg Tablet, 100 MG PO DAILY, (Repo rted) Entered as Reported by: ASHLEY NÚÑEZ on 04/16/21 1246 Norgestimate-Ethinyl Estradiol (Sprintec 28 Day Tablet) 0.25 Mg-35 Mcg Tablet, 1 EACH PO DAILY, (Reported) Entered as Reported by: ASHLEY NÚÑEZ on 02/14/22 0949 Ondansetron (Ondansetron Odt) 8 Mg Tab.rapdis, 8 MG PO Q6H PRN for NAUSEA/VOMITING-1ST LINE, (Reported) Entered as Reported by: ASHLEY NÚÑEZ on 02/14/22 0944 Pantoprazole Sodium (Protonix) 40 Mg Tablet.dr, 40 MG PO BID, (Reported) Entered as Reported by: SHIKHA MONTES on 11/30/19 1133 Polyethylene Glycol 400 (Visine Dry Eye Relief) 1 % Drops, 1 DROPS OU DAILY PRN for DRY EYES, (Reported) Entered as Reported by: ASHLEY NÚÑEZ on 02/14/22 0950 Potassium Chloride (Potassium Chloride) 10 Meq Capsule.er, 10 MEQ PO DAILY Prescribed by: JENNYFER PELAYO on 02/14/22 1236 Potassium Chloride (Klor-Con) 20 Meq Packet, 20 MEQ PO DAILY Prescribed by: BRIANNA RODRIGUEZ on 02/17/22 1310 Propranolol HCl (Propranolol HCl) 40 Mg Tablet, 40 MG PO BID, (Reported) Entered as Reported by: ASHLEY NÚÑEZ on 04/16/21 1240 Review of Systems Review of Systems Constitutional: see HPI Past Kziqxwj-Epypat-Dvwkag Hx Patient Social History Tobacco Use?: Yes Tobacco type used: Cigarettes Substance use?: No Alcohol Use?: No Pt feels they are or have been: No Immunizations Up To Date Tetanus Booster (TDap): More than 5yrs PED Vaccines UTD: Yes Influenza Vaccine Up-to-Date: No; Not Current First/Initial COVID19 Vaccinat: NONE Second COVID19 Vaccination Alejandro: NONE Third COVID19 Vaccination Date: NONE Seasonal Allergies Seasonal Allergies: Yes Past Medical History Surgery/Hospitalization HX: GASTRIC OUTLET OBSTRUCTION, HTN, ?HEART FAILURE. 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 History: Hysterectomy Sexually Transmitted Disease: No HIV/AIDS: No Genitourinary: No Gastrointestinal: Yes ("GASTRIC OUTLET OBSTRUCTION"-NO SURGERY;CHRONIC N/V/D/ABD PAIN) Gastroesophageal Reflux, Gastrointestinal Bleed, Obstructive Bowel, Ulcer Musculoskeletal: Yes Degenerate Disk Disease, Osteoporosis, Scoliosis, Chronic Back Pain Endocrine: Yes (HYPOGLYCEMIA; ) HEENT: No Loss of Vision: Denies Hearing Impairment: Denies Cancer: No Psychosocial: No Integumentary: No Blood Disorders: Yes (anemia) Adverse Reaction/Blood Tranf: No Family Medical History Cancer of colon GRANDMOTHER Family history: Diabetes mellitus 19 FATHER Family history: Hypertension 19 MOTHER Stroke 19 MOTHER No Pertinent Family Hx SOCIAL HISTORY: -SMOKES 1 PPD -ETOH--DENIES USE -DRUGS --DENIES USE PAST SURGICAL HISTORY: -GASTRIC BYPASS -APPENDECTOMY -HYSTERECTOMY -GASTRIC ANTRUM RESECTION AND BILROTH ll RECONSTRUCTION -VAGOTOMY AND PYLOROPLASTY -MULTIPLE EGD'S AND PYLORIC DILATIONS FOR PYLORIC STENOSIS; SCLEROTHERAPY FOR GI BLEED -COLONOSCOPY -CARDIAC CATH 03/08/[address] HAMLIN: CONCLUSION: 1. Mild coronary artery disease nonobstructive disease, dominant circumflex artery 2. Normal left ventricular systolic and diastolic function, EF 50 percent 3. Normal aortic root, +1-2 AR DISCUSSION AND RECOMMENDATION: Medical therapy is recommended no intervention is needed Physical Exam Vital Signs Vital Signs - First Documented 06/09/23 12:30 Temp 36.8 Pulse 70 Resp 16 B/P (MAP) 148/84 (105) Pulse Ox 99 O2 Delivery Room Air Capillary Refill : Height, Weight, BMI Height: 5'0" Weight: 106lbs. 0.0oz. 48.963501ws; 21.00 BMI Method:Stated General Appearance: No Apparent Distress, WD/WN Neck: Normal Inspection, Supple Respiratory: Lungs Clear, Normal Breath Sounds, No Accessory Muscle Use, No Respiratory Distress Cardiovascular: Regular Rate, Rhythm Extremity: Normal Inspection, Normal Range of Motion Neurologic/Psychiatric: Alert, No Motor/Sensory Deficits Skin: Normal Color, Warm/Dry Procedures/Interventions Suture Size: 5-0 Progress/Results/Core Measures Suspected Sepsis SIRS Temperature: Pulse: 70 Respiratory Rate: 16 Laboratory Tests 06/09/23 12:45: White Blood Count 7.2 Blood Pressure 148 /84 Mean: 105 Laboratory Tests 06/09/23 12:45: Creatinine 0.67, INR Comment 1.0, Platelet Count 370, Total Bilirubin 0.1 Results/Orders Lab Results Laboratory Tests Test 06/09/23 12:45 Range/Units White Blood Count 7.2 4.3-11.0 10^3/uL Red Blood Count 4.28 3.80-5.11 10^6/uL Hemoglobin 10.6 L 11.5-16.0 g/dL Hematocrit 35 35-52 % Mean Corpuscular Volume 83 80-99 fL Mean Corpuscular Hemoglobin 25 25-34 pg Mean Corpuscular Hemoglobin Concent 30 L 32-36 g/dL Red Cell Distribution Width 16.5 H 10.0-14.5 % Platelet Count 370 130-400 10^3/uL Mean Platelet Volume 9.4 9.0-12.2 fL Immature Granulocyte % (Auto) 0 % Neutrophils (%) (Auto) 66 42-75 % Lymphocytes (%) (Auto) 25 12-44 % Monocytes (%) (Auto) 6 0-12 % Eosinophils (%) (Auto) 2 0-10 % Basophils (%) (Auto) 1 0-10 % Neutrophils # (Auto) 4.8 1.8-7.8 10^3/uL Lymphocytes # (Auto) 1.8 1.0-4.0 10^3/uL Monocytes # (Auto) 0.5 0.0-1.0 10^3/uL Eosinophils # (Auto) 0.1 0.0-0.3 10^3/uL Basophils # (Auto) 0.1 0.0-0.1 10^3/uL Immature Granulocyte # (Auto) 0.0 0.0-0.1 10^3/uL Prothrombin Time 13.1 12.2-14.7 SEC INR Comment 1.0 0.8-1.4 Activated Partial Thromboplast Time 29 24-35 SEC Sodium Level 138 135-145 MMOL/L Potassium Level 2.4 *L 3.6-5.0 MMOL/L Chloride Level 101 98-107 MMOL/L Carbon Dioxide Level 27 21-32 MMOL/L Anion Gap 10 5-14 MMOL/L Blood Urea Nitrogen 6 L 7-18 MG/DL Creatinine 0.67 0.60-1.30 MG/DL Estimat Glomerular Filtration Rate 103 BUN/Creatinine Ratio 9 Glucose Level 155 H 70-105 MG/DL Calcium Level 8.9 8.5-10.1 MG/DL Corrected Calcium 9.5 8.5-10.1 MG/DL Magnesium Level 1.8 1.6-2.4 MG/DL Total Bilirubin 0.1 0.1-1.0 MG/DL Aspartate Amino Transf (AST/SGOT) 14 5-34 U/L Alanine Aminotransferase (ALT/SGPT) 8 0-55 U/L Alkaline Phosphatase 119 40-136 U/L Troponin I < 0.028 <0.028 NG/ML Total Protein 7.0 6.4-8.2 GM/DL Albumin 3.3 3.2-4.5 GM/DL My Orders Orders - AZUL RODRIGUES PIPE LINE INSPECTOR Cbc And Automated Diff (06/09/23 12:42) Magnesium (06/09/23 12:42) Chest 1 View, Ap/Pa Only (06/09/23 12:42) Ekg Tracing (06/09/23 12:42) Comprehensive Metabolic Panel (06/09/23 12:42) Protime With Inr (06/09/23 12:42) Partial Thromboplastin Time (06/09/23 12:42) Monitor-Rhythm Ecg Trace Only (06/09/23 12:42) Ed Iv/Invasive Line Start (06/09/23 12:42) Troponin I [place] (06/09/23 12:42) Potassium Cl 10meq/50ml Ivpb (Kcl 10 Meq (06/09/23 13:45) Potassium Bicarb/Cit Acid Tab (Potassium (06/09/23 13:45) Ed Admission (Communication) (06/09/23 13:53) Ns Iv 500 Ml (Ns Iv 500 Ml) (06/09/23 14:02) Medications Given in ED Current Medications Medications Dose Ordered Sig/Flora Route Start Time Stop Time Status Last Admin Dose Admin Potassium Bicarbonate/ Citric Acid 40 meq ONCE ONCE PO 06/09/23 13:45 06/09/23 13:46 DC 06/09/23 14:07 40 MEQ Potassium Chloride 50 ml @ 50 mls/hr ONCE ONCE IV 06/09/23 13:45 06/09/23 14:44 06/09/23 14:07 50 MLS/HR Sodium Chloride 500 ml @ ud STK-MED ONCE .ROUTE 06/09/23 14:02 06/09/23 14:06 DC 06/09/23 14:07 500 MLS/HR Vital Signs/I&O 06/09/23 06/09/23 12:30 13:23 Temp 36.8 Pulse 70 62 Resp 16 16 B/P (MAP) 148/84 (105) 137/61 Pulse Ox 99 97 O2 Delivery Room Air Room Air Capillary Refill : Blood Pressure Mean: 105 Progress Note : Progress Note Patient seen and evaluated, resting comfortably in bed, no acute distress. Based on exam and symptoms, cardiac workup initiated including CBC, CMP, magnesium, troponin, coags, EKG, chest x-ray. Lab results received from [facility]. Potassium was 2.7. Iron was 15. 1347 Labs, chest x-ray, EKG reviewed. CBC shows decreased hemoglobin 10.6, hematocrit normal 35. CMP shows critically low potassium 2.4. Glucose slightly elevated 155. Magnesium normal 1.8. Troponin negative. Labs normal. Chest x- ray shows no acute cardiopulmonary process. Results discussed with patient. 40 mEq of oral potassium and 10 mEq of IV potassium ordered. I spoke with Dr. Myers, [facility] hospitalist, regarding patient. She agrees to admit patient for hypokalemia. Patient agrees to admission. ECG Initial ECG Impression Date: Jun 09, 2023 Initial ECG Impression Time: 12:51 Initial ECG Rate: 72 Initial ECG Rhythm: Normal Sinus Initial ECG Intervals: Normal Initial ECG Impression: Nonspecific Changes Initial ECG Comparisson: Unchanged Diagnostic Imaging Diagonstic Imaging: Xray Plain Films/CT/US/NM/MRI: chest Comments [facility], [place] NAME: DIRK PEREZ [facility] REC#: [id number] PT STATUS: REG ER : 1965 PHYSICIAN: AZUL RODRIGUES APRN ADMIT DATE: 06/09/23/ER Signed Date of Exam:06/09/23 CHEST 1 VIEW, AP/PA ONLY INDICATION: Chest pain. TECHNIQUE: Single AP view of the chest is obtained with comparison made to study of 04/29/2022. FINDINGS: Heart size and pulmonary vascularity are within normal limits, and the lungs are clear, bilaterally. IMPRESSION: Unremarkable chest. Dictated by: Dictated on workstation # [id number] Dict: 06/09/23 1324 Trans: 06/09/23 1411 [id number] [id number] Interpreted by: VIDA CARVER MD Electronically signed by: VIDA CARVER MD 06/09/23 1411 Departure Communication (Admissions) Time/Spoke to Admitting Phy: 13:47 Dr. Myers, see progress note. Impression Primary Impression: Hypokalemia Disposition: ADMITTED INPATIENT Condition: Stable Admissions Decision to Admit Reason: Admit from ER (General) Decision to Admit/Date: Jun 09, 2023 Time/Decision to Admit Time: 13:47 Departure-Patient Inst. Referrals: SELIN CONTRERAS APRN (PCP/Family) Primary Care Physician AZUL RODRIGUES APRN Jun 09, 2023 12:50
[2023-06-09 13:03] LABS: ALBUMIN 3.3 GM/DL (3.2-4.5); CHLORIDE 101 MMOL/L (98-107); SODIUM 138 MMOL/L (135-145)
[2023-06-09 13:04] LABS: CALCIUM 8.9 MG/DL (8.5-10.1)
[2023-06-09 13:05] LABS: GLUCOSE 155 MG/DL (70-105)
[2023-06-09 13:06] LABS: CARBON DIOXIDE 27 MMOL/L (21-32)
[2023-06-09 13:07] LABS: BILIRUBIN,TOTAL 0.1 MG/DL (0.1-1.0)
[2023-06-09 13:08] LABS: ALKALINE PHOSPHATASE 119 U/L (40-136)
[2023-06-09 13:09] LABS: BASOPHILS # (AUTO) 0.1 10^3/uL (0.0-0.1); BASOPHILS % (AUTO) 1 % (0-10); CREATININE SERUM 0.67 MG/DL (0.60-1.30); EOSINOPHILS # (AUTO) 0.1 10^3/uL (0.0-0.3); EOSINOPHILS % (AUTO) 2 % (0-10); GFR ESTIMATED 103; HEMATOCRIT 35 % (35-52); HEMOGLOBIN 10.6 g/dL (11.5-16.0); LYMPHOCYTES # (AUTO) 1.8 10^3/uL (1.0-4.0); LYMPHOCYTES % (AUTO) 25 % (12-44); MEAN CORPUSCULAR HEMOGLOBIN 25 pg (25-34); MEAN CORPUSCULAR HGB CONC 30 g/dL (32-36); MEAN CORPUSCULAR VOLUME 83 fL (80-99); MEAN PLATELET VOLUME 9.4 fL (9.0-12.2); MONOCYTES # (AUTO) 0.5 10^3/uL (0.0-1.0); MONOCYTES % (AUTO) 6 % (0-12); NEUTROPHILS # (AUTO) 4.8 10^3/uL (1.8-7.8); NEUTROPHILS % (AUTO) 66 % (42-75); PLATELET COUNT 370 10^3/uL (130-400); WHITE BLOOD COUNT 7.2 10^3/uL (4.3-11.0)
[2023-06-09 13:10] LABS: BUN/CREATININE RATIO 9
[2023-06-09 13:11] LABS: MAGNESIUM 1.8 MG/DL (1.6-2.4)
[2023-06-09 13:12] LABS: ALANINE AMINOTRANSFERASE 8 U/L (0-55)
[2023-06-09 13:14] LABS: PROTHROMBIN TIME PATIENT 13.1 SEC (12.2-14.7)
[2023-06-09 13:23] LABS: POTASSIUM 2.4 MMOL/L (3.6-5.0)
--- NOTE | 2023-06-09 13:28 | Diagnostic Imaging Report ---
INDICATION: Chest pain. TECHNIQUE: Single AP view of the chest is obtained with comparison made to study of 04/29/2022. FINDINGS: Heart size and pulmonary vascularity are within normal limits, and the lungs are clear, bilaterally. IMPRESSION: Unremarkable chest. Dictated by: Dictated on workstation # [id number]
[2023-06-09] MEDS ORDERED: POTASSIUM CL 10MEQ/50ML IVPB 50 ML IV ONE (13:45)
[2023-06-09] MEDS ORDERED: POTASSIUM BICARB 20 MEQ effervescent TABLET PO ONE (13:45)
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
[2023-06-09] MEDS ORDERED: NS IV 500 ML 500 ML ONE ×2 (14:02→15:48)
[2023-06-09] MEDS ORDERED: IRON SUCROSE 200 MG/10 ML VIAL IV SCH (15:30)
[2023-06-09] MEDS: POTASSIUM CL 10MEQ/50ML IVPB 50 ML IV SCH ×4 (15:55→19:03)
[2023-06-09 17:00] VITALS: BP 126/60
[2023-06-09] MEDS ORDERED: ENOXAPARIN 40 MG/0.4 ML SYRINGE SQ SCH (17:30)
[2023-06-09 19:56] VITALS: BP 128/58
[2023-06-09] MEDS ORDERED: ONDANSETRON 4 MG ORAL DISSOLVE TABLET PO PRN (20:45)
[2023-06-09 20:59] LABS: CALCIUM 8.4 MG/DL (8.5-10.1); CREATININE SERUM 0.54 MG/DL (0.60-1.30); POTASSIUM 3.9 MMOL/L (3.6-5.0)
[2023-06-09] MEDS: HYDROcodone/ACETAMINOPHEN 5 MG/325 MG TABLET PO PRN (21:44)
[2023-06-09 23:19] VITALS: BP 130/80
[2023-06-10] MEDS: HYDROcodone/ACETAMINOPHEN 5 MG/325 MG TABLET PO PRN ×3 (02:21→14:45)
[2023-06-10 03:33] VITALS: BP 132/71
[2023-06-10 05:14] LABS: HEMATOCRIT 30 % (35-52); MEAN CORPUSCULAR HEMOGLOBIN 25 pg (25-34); MEAN CORPUSCULAR HGB CONC 30 g/dL (32-36); MEAN CORPUSCULAR VOLUME 82 fL (80-99); MEAN PLATELET VOLUME 9.7 fL (9.0-12.2); PLATELET COUNT 265 10^3/uL (130-400); WHITE BLOOD COUNT 4.8 10^3/uL (4.3-11.0)
[2023-06-10 05:28] LABS: POTASSIUM 3.1 MMOL/L (3.6-5.0)
[2023-06-10 05:29] LABS: CALCIUM 8.3 MG/DL (8.5-10.1)
[2023-06-10 05:33] LABS: CREATININE SERUM 0.52 MG/DL (0.60-1.30)
[2023-06-10 08:10] VITALS: BP 136/64
[2023-06-10] MEDS ORDERED: POTASSIUM BICARB 20 MEQ effervescent TABLET PO NR (08:30)
[2023-06-10 11:41] VITALS: BP 121/72
[2023-06-10] MEDS ORDERED: MTC10T PO (12:19)
[2023-06-10] MEDS ORDERED: OMEP40CA6 PO (12:19)
[2023-06-10] MEDS ORDERED: MAGN250T13 PO (12:19)
[2023-06-10] MEDS ORDERED: CYCL5TAB PO (12:19)
[2023-06-10] MEDS ORDERED: BUDE10.26 INH (12:19)
[2023-06-10] MEDS ORDERED: ALBU18HF2 INH (12:19)
[2023-06-10] MEDS ORDERED: OMEG100032 PO (12:19)
[2023-06-10] MEDS ORDERED: ACHD5005 PO (12:19)
[2023-06-10 12:30] LABS: POTASSIUM 3.5 MMOL/L (3.6-5.0)
[2023-06-10 12:31] LABS: CALCIUM 8.8 MG/DL (8.5-10.1)
[2023-06-10 12:36] LABS: CREATININE SERUM 0.61 MG/DL (0.60-1.30)
[2023-06-10] MEDS ORDERED: POTASSIUM BICARB 20 MEQ effervescent TABLET PO ONE (14:30)
[2023-06-10] MEDS ORDERED: POTA40LI3 PO (14:39)
[2023-06-10] MEDS ORDERED: IRON100V2 IV (14:44)
--- NOTE | 2023-06-10 14:48 | Discharge Summary ---
Discharge Summary Hospital Course Problems/Diagnosis: (1) Hypokalemia Status: Acute Assessment & Plan: Suspect due to poor intake related to her GI strictures and liquid diet. Day one given a total of 50 mEq IV and 20 mEq oral and potassium increased to 3.6, but on am of day two was down to 3.1 again, given an additional 40 mEq PO and repeat K was 3.5, given another 20 mEq PO and sent script for 40 mEq daily for home. (2) Hyperlipidemia Status: Chronic (3) GERD with esophagitis Status: Chronic (4) Anemia Status: Chronic Assessment & Plan: Suspect more than one cause, ferritin very low on outpatient labs, was to be on oral iron but didn't tolerate, given her GI issues, not surprising. Also due to her extensive GI ulcer history suspect possible chronic blood loss as well. IV iron ordered for 200 mg every other day for 5 doses, received one dose inpatient, will need to go to outpatient surgery for remaining doses. Qualifiers: Qualified Codes: D50.8 - Other iron deficiency anemias (5) Chronic pain Status: Chronic (6) HTN (hypertension) Status: Chronic Assessment & Plan: Home meds (7) Malnutrition Status: Chronic Assessment & Plan: Chronic related to multiple GI surgeries and inability to tolerate more than liquid diet, follows with GI. Hospital Course Date of Admission: Jun 09, 2023 at 14:58 Admission Diagnosis : Family Physician/Provider: Smita Mo Aprn Date of Discharge: 06/10/23 Discharge Diagnosis: See problem list Hospital Course: See problem list Labs and Pending Lab Test: Laboratory Tests 06/09/23 20:31: Sodium Level 138, Potassium Level 3.9, Chloride Level 101, Carbon Dioxide Level 28, Anion Gap 9, Blood Urea Nitrogen 4L, Creatinine 0.54L, Estimat Glomerular Filtration Rate 109, BUN/Creatinine Ratio 7, Glucose Level 79, Calcium Level 8.4L 06/10/23 05:07: Sodium Level 137, Potassium Level 3.1L, Chloride Level 100, Carbon Dioxide Level 29, Anion Gap 8, Blood Urea Nitrogen 3L, Creatinine 0.52L, Estimat Glomerular Filtration Rate 110, BUN/Creatinine Ratio 6, Glucose Level 83, Calcium Level 8.3L, White Blood Count 4.8, Red Blood Count 3.66L, Hemoglobin 9.0L, Hematocrit 30L, Mean Corpuscular Volume 82, Mean Corpuscular Hemoglobin 25, Mean Corpuscular Hemoglobin Concent 30L, Red Cell Distribution Width 16.3H, Platelet Count 265, Mean Platelet Volume 9.7 06/10/23 12:10: Sodium Level 136, Potassium Level 3.5L, Chloride Level 98, Carbon Dioxide Level 31, Anion Gap 7, Blood Urea Nitrogen 3L, Creatinine 0.61, Estimat Glomerular Filtration Rate 106, BUN/Creatinine Ratio 5, Glucose Level 89, Calcium Level 8.8 Home Meds Active Venofer (Iron Sucrose Complex) 200 Mg Iron/10 Ml Vial 200 Mg IV Q48H Potassium Chloride 40 Meq/15 Ml Liquid 40 Meq PO DAILY Reported Magnesium (Magnesium Oxide) 250 Mg Tablet 250 Mg PO DAILY Fish Oil 1,000 mg Softgel ([place]-3/Dha/Epa/Fish Oil) 1,000 Mg (120 Mg-180 Mg) Capsule 1,000 Mg PO DAILY Ventolin Hfa (Albuterol Sulfate) 90 Mcg Hfa.aer.ad 1 Puff INH Q4H PRN Budesonide-Formoterol 160-4.5 (Budesonide/Formoterol Fumarate) 160 Mcg-4.5 Mcg/Actuation Hfa.aer.ad 2 Puff INH DAILY Metoclopramide HCl 10 Mg Tablet 10 Mg PO ACHS Cyclobenzaprine HCl 5 Mg Tablet 5 Mg PO BID Omeprazole 40 Mg Capsule.dr 40 Mg PO DAILY Hydrocodone-Acetamin 5-325 mg (Hydrocodone/Acetaminophen) 5 Mg-325 Mg Tablet 1 Ea PO Q4H PRN Sprintec 28 Day Tablet (Norgestimate-Ethinyl Estradiol) 0.25 Mg-35 Mcg Tablet 1 Each PO DAILY Fluconazole 200 Mg Tablet 200 Mg PO MON Ondansetron Odt (Ondansetron) 8 Mg Tab.rapdis 8 Mg PO Q6H PRN Losartan Potassium 100 Mg Tablet 100 Mg PO DAILY Propranolol HCl 40 Mg Tablet 40 Mg PO BID Amlodipine Besylate 5 Mg Tablet 5 Mg PO DAILY Gabapentin 600 Mg Tablet 600 Mg PO TID B-12 (Cyanocobalamin (Vitamin B-12)) 500 Mcg Tablet 500 Mcg PO DAILY Assessment/Pt DC Instructions Follow up with Smita Mo APRN within a week or two of discharge. Get repeat labs done at [facility] in the next day or two to confirm potassium staying adequate. Discharge Diet: Liquid Diet Activity as Tolerated: Yes Discharge Physical Examination Allergies: Coded Allergies: nitrofurantoin (Verified Allergy, Mild, 09/18/22) flu like symptoms Influenza Virus Vaccines (Verified Allergy, Unknown, 04/15/21) metronidazole (Verified Allergy, Unknown, 04/15/21) Sulfa (Sulfonamide Antibiotics) (Verified Adverse Reaction, Unknown, 04/15/21) General Appearance: No Apparent Distress, WD/WN Respiratory: Lungs Clear, Normal Breath Sounds Cardiovascular: Regular Rate, Rhythm, No Murmur Gastrointestinal: Normal Bowel Sounds, Non Tender, Soft Skin: Normal Color, Warm/Dry Neurologic/Psychiatric: Alert, Normal Mood/Affect Copy Copies To 1: Smita Mo APRN Clinical Quality Measures AMI/AHF: ASA po Prior to arrival: MARIANNA Goodwin MD Jun 10, 2023 14:48
[2023-06-10 15:11] VITALS: BP 176/81
[2023-06-10 15:39] VITALS: BP 176/81
== END 2023-06-10 13:55 | disposition home or self-care (01) ==
LOC: EDUNIT# 12:22 → ER 12:24 → UNDOADMOB 14:58 → 4TH 14:58 → UNDODISOB 06-10 13:55
PROVIDERS: ADMIT Family Medicine; ATTEND Family Medicine
DX: E87.6 Hypokalemia (principal); E78.5 Hyperlipidemia, unspecified; K21.00 Gastro-esophageal reflux disease with esophagitis, without bleeding; G89.29 Other chronic pain; I10 Essential (primary) hypertension; E46 Unspecified protein-calorie malnutrition; D50.8 Other iron deficiency anemias; F17.210 Nicotine dependence, cigarettes, uncomplicated
CPT/HCPCS: 71045; 80048 ×2; 80053; 83735; 84484; 85025; 85027; 85610; 85730; 93005; 93041; 96366; 96372; 96375; 96376; 99284; G0378; 36415; 96360